=== PATIENT | male | born 1970 | race Caucasian/White ===

== ENCOUNTER 2019-07-20 17:46 | Inpatient (IN) | payer MEDICAID, OTHER ==
[~2019-07-20] VITALS: Ht 195 cm; Wt 87.2 kg
[2019-07-20] MEDS ORDERED: FAMOTIDINE 20MG/2ML IV (PEPCID) IVP ONE (18:15)
[2019-07-20 18:22] LABS: BASOPHILS % (AUTO) 0 % (0-10); EOSINOPHILS # (AUTO) 0.1 10^3/uL (0.0-0.3); EOSINOPHILS % (AUTO) 1 % (0-10); HEMATOCRIT 39 % (40-54); HEMOGLOBIN 13.4 G/DL (13.3-17.7); LYMPHOCYTES # (AUTO) 1.6 X 10^3 (1.0-4.0); LYMPHOCYTES % (AUTO) 20 % (12-44); MEAN CORPUSCULAR HEMOGLOBIN 32 PG (25-34); MEAN CORPUSCULAR HGB CONC 34 G/DL (32-36); MEAN CORPUSCULAR VOLUME 95 FL (80-99); MEAN PLATELET VOLUME 10.6 FL (7.4-10.4); MONOCYTES # (AUTO) 0.7 X 10^3 (0.0-1.0); MONOCYTES % (AUTO) 9 % (0-12); NEUTROPHILS # (AUTO) 5.6 X 10^3 (1.8-7.8); NEUTROPHILS % (AUTO) 70 % (42-75); PLATELET COUNT 163 10^3/uL (130-400); RED CELL DISTRIBUTION WIDTH 12.3 % (10.0-14.5)
[2019-07-20] MEDS: NS IV 1000 ML 1,000 ML IV SCH ×2 (18:26→20:00)
--- NOTE | 2019-07-20 18:31 | Diagnostic Imaging Report ---
INDICATION: Shortness of breath, cardiac enlargement. COMPARISON: None. EXAMINATION: Single view of the chest was obtained. FINDINGS: Moderate cardiac enlargement with mild bilateral interstitial pulmonary edema. No large effusion is seen. There is no pneumothorax. Sternal wires midline. IMPRESSION: Findings compatible with CHF. Underlying pneumonia not excluded. Dictated by: Dictated on workstation # [id number]
[2019-07-20 18:32] LABS: ALKALINE PHOSPHATASE 77 U/L (40-136); BILIRUBIN,TOTAL 0.4 MG/DL (0.1-1.0); BUN/CREATININE RATIO 19; CALCIUM 8.7 MG/DL (8.5-10.1); CARBON DIOXIDE 26 MMOL/L (21-32); CHLORIDE 97 MMOL/L (98-107); CREATININE SERUM 0.57 MG/DL (0.60-1.30); GFR ESTIMATED > 60; GLUCOSE 237 MG/DL (70-105); POTASSIUM 4.1 MMOL/L (3.6-5.0); SODIUM 135 MMOL/L (135-145)
[2019-07-20 18:33] LABS: ALANINE AMINOTRANSFERASE 74 U/L (0-55); ALBUMIN 3.4 GM/DL (3.2-4.5); TOTAL PROTEIN 6.3 GM/DL (6.4-8.2)
--- NOTE | 2019-07-20 19:11 | ED Cardiac General ---
History of Present Illness General Chief Complaint: Chest Pain Stated Complaint: CHEST PAIN Nursing Triage Note: Brought in by ems for chest pain that started two days ago, rated at 10/10. Has taken aspirin for pain. 2 days ago smoked weed laced with meth. Hr is 130, Has had 4 baby aspirins prior to arrival to ED. Has 20 g in R ac. Source: patient Exam Limitations: no limitations History of Present Illness Date Seen by Provider: Jul 20, 2019 Time Seen by Provider: 18:00 Initial Comments Patient is a 49-year-old male with history of polysubstance abuse who presents with productive cough for the past 2 days with chest pain after coughing. Pain is rated 10 out of 10. Patient acknowledges smoking marijuana laced with methamphetamines prior to ED arrival. Patient has fever chills nausea vomiting and sweats. Denies headache, palpitations and shortness of breath. Patient took aspirin prior to ED arrival per EMS. The patient states he was evaluated in [place] 2 days ago for similar symptoms and states he was told he had methamphetamines in his system at that time. Denies history of coronary disease, congestive heart failure, hypertension, dyslipidemia and diabetes. Patient smokes cigarettes and drinks alcohol daily and reports frequent and use routine marijuana/methamphetamine abuse. Denies prior cardiac stress testing.. 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 Associated Systoms: Chest Pain, Cough; No Diaphoresis, No Fever/Chills, No Nausea/Vomiting, No Seizure, No Shortness of Air, No Syncope, No Weakness Allergies and Home Medications Allergies Coded Allergies: Penicillins (Unverified Adverse Reaction, Unknown, 07/20/19) Patient Home Medication List Home Medication List Reviewed: Yes Review of Systems Review of Systems Constitutional: see HPI EENTM: See HPI Respiratory: See HPI Cardiovascular: See HPI Gastrointestinal: See HPI Genitourinary: See HPI Musculoskeletal: see HPI Skin: see HPI Psychiatric/Neurological: See HPI Endocrine: See HPI Hematologic/Lymphatic: See HPI Past Wtqkzei-Mrfnli-Kplnlk Hx Past Med/Social Hx: Reviewed Nursing Past Med/Soc Hx Patient Social History Alcohol Use: Occasionally Uses Recreational Drug Use: Yes Drug of Choice: marijuana, meth Smoking Status: Current Everyday Smoker Type Used: Cigarettes 2nd Hand Smoke Exposure: No Recent Foreign Travel: No Contact w/Someone Who Travel: No Recent Infectious Disease Expo: No Recent Hopitalizations: Yes Seasonal Allergies Seasonal Allergies: No Past Medical History Surgeries: No Respiratory: No Cardiac: Yes (heart surgery at 16mo for hole in heart) Neurological: No Genitourinary: No Gastrointestinal: No Musculoskeletal: No Endocrine: Yes Diabetes, Non-Insulin dep HEENT: No Cancer: No Psychosocial: Yes (substance abuse ) Anxiety Integumentary: No Physical Exam Vital Signs Vital Signs - First Documented 07/20/19 17:46 Temp 36.8 Pulse 129 Resp 19 B/P (MAP) 104/74 (84) Pulse Ox 94 Capillary Refill : Less Than 3 Seconds Height, Weight, BMI Height: '" Weight: lbs. oz. kg; 19.00 BMI Method: General Appearance: No Apparent Distress, WD/WN, Thin, Other (somnolent, difficulty staying awake. Poor hygiene, disheveled, picking sores on skin.) HEENT: PERRL/EOMI, Normal ENT Inspection Neck: Full Range of Motion, Normal Inspection, Supple Respiratory: Chest Non Tender, Normal Breath Sounds, Other (rhonchi) Cardiovascular: No Edema, Tachycardia Gastrointestinal: Normal Bowel Sounds Rectal: Normal Exam Extremity: Normal Capillary Refill Neurologic/Psychiatric: Alert Skin: Normal Color, Warm/Dry Focused Exam Sepsis Stage: Ruled Out Progress/Results/Core Measures Results/Orders Lab Results Laboratory Tests Test 07/20/19 17:45 07/20/19 19:40 Range/Units White Blood Count 8.0 4.3-11.0 10^3/uL Red Blood Count 4.15 L 4.35-5.85 10^6/uL Hemoglobin 13.4 13.3-17.7 G/DL Hematocrit 39 L 40-54 % Mean Corpuscular Volume 95 80-99 FL Mean Corpuscular Hemoglobin 32 25-34 PG Mean Corpuscular Hemoglobin Concent 34 32-36 G/DL Red Cell Distribution Width 12.3 10.0-14.5 % Platelet Count 163 130-400 10^3/uL Mean Platelet Volume 10.6 H 7.4-10.4 FL Neutrophils (%) (Auto) 70 42-75 % Lymphocytes (%) (Auto) 20 12-44 % Monocytes (%) (Auto) 9 0-12 % Eosinophils (%) (Auto) 1 0-10 % Basophils (%) (Auto) 0 0-10 % Neutrophils # (Auto) 5.6 1.8-7.8 X 10^3 Lymphocytes # (Auto) 1.6 1.0-4.0 X 10^3 Monocytes # (Auto) 0.7 0.0-1.0 X 10^3 Eosinophils # (Auto) 0.1 0.0-0.3 10^3/uL Basophils # (Auto) 0.0 0.0-0.1 10^3/uL Sodium Level 135 135-145 MMOL/L Potassium Level 4.1 3.6-5.0 MMOL/L Chloride Level 97 L 98-107 MMOL/L Carbon Dioxide Level 26 21-32 MMOL/L Anion Gap 12 5-14 MMOL/L Blood Urea Nitrogen 11 7-18 MG/DL Creatinine 0.57 L 0.60-1.30 MG/DL Estimat Glomerular Filtration Rate > 60 BUN/Creatinine Ratio 19 Glucose Level 237 H 70-105 MG/DL Calcium Level 8.7 8.5-10.1 MG/DL Corrected Calcium 9.2 8.5-10.1 MG/DL Total Bilirubin 0.4 0.1-1.0 MG/DL Aspartate Amino Transf (AST/SGOT) 65 H 5-34 U/L Alanine Aminotransferase (ALT/SGPT) 74 H 0-55 U/L Alkaline Phosphatase 77 40-136 U/L Troponin I < 0.30 <0.30 NG/ML Pro-B-Type Natriuretic Peptide 4076.0 H <75.0 PG/ML Total Protein 6.3 L 6.4-8.2 GM/DL Albumin 3.4 3.2-4.5 GM/DL Serum Alcohol < 10 <10 MG/DL Urine Opiates Screen NEGATIVE NEGATIVE Urine Oxycodone Screen NEGATIVE NEGATIVE Urine Methadone Screen NEGATIVE NEGATIVE Urine Propoxyphene Screen NEGATIVE NEGATIVE Urine Barbiturates Screen NEGATIVE NEGATIVE Ur Tricyclic Antidepressants Screen NEGATIVE NEGATIVE Urine Phencyclidine Screen NEGATIVE NEGATIVE Urine Amphetamines Screen NEGATIVE NEGATIVE Urine Methamphetamines Screen NEGATIVE NEGATIVE Urine Benzodiazepines Screen NEGATIVE NEGATIVE Urine Cocaine Screen NEGATIVE NEGATIVE Urine Cannabinoids Screen POSITIVE H NEGATIVE My Orders Orders - ABEL PECK DO Cbc With Automated Diff (07/20/19 18:05) Comprehensive Metabolic Panel (07/20/19 18:05) Troponin I (07/20/19 18:05) Chest 1 View Ap/Pa Only (07/20/19 18:05) Drug Screen Stat (Urine) (07/20/19 18:05) Alcohol (07/20/19 18:05) Ns Iv 1000 Ml (Sodium Chloride 0.9%) (07/20/19 18:15) Famotidine Injection (Pepcid Injection) (07/20/19 18:15) Creatine Kinase (07/20/19 17:45) Ekg Tracing (07/20/19 18:52) Probnp Fs (07/20/19 19:03) Doxycycline Hyclate Tablet (Vibramycin T (07/21/19 07:00) Doxycycline Hyclate Tablet (Vibramycin T (07/20/19 19:31) Doxycycline Hyclate Tablet (Vibramycin T (07/20/19 19:40) Furosemide Injection (Lasix Injection) (07/20/19 20:15) Tramadol Tablet (Ultram Tablet) (07/20/19 21:15) Ns (Ivpb) (Sodium C... W/Diltiazem Iv Fo (07/20/19 21:15) Enoxaparin Injection (Lovenox Injection) (07/20/19 21:30) Medications Given in ED Current Medications Medications Dose Ordered Sig/Scarlett Route Start Time Stop Time Status Last Admin Dose Admin Famotidine 20 mg ONCE ONCE IVP 07/20/19 18:15 07/20/19 18:16 DC 07/20/19 18:26 20 MG Furosemide 40 mg ONCE ONCE IVP 07/20/19 20:15 07/20/19 20:16 DC 07/20/19 20:20 40 MG Vital Signs/I&O 07/20/19 07/20/19 17:46 21:17 Temp 36.8 Pulse 129 130 Resp 19 B/P (MAP) 104/74 (84) Pulse Ox 94 Blood Pressure Mean: 84 Departure Communication (Admissions) Patient in atrial arrhythmia suspicious for atrial flutter with with evidence of congestive heart failure. Patient's chest wall pain relates to cough. Troponin negative. Patient started on Cardizem drip, Lovenox and single dose of oral doxycycline. No respiratory distress. Dr. Campa accepts care of the patient. Dr. Randle consulted. Patient observed in the ED and placed on monitor. Patient remains tachycardic likely secondary to infected amines in his system. Blood pressure is 110/80 on recheck. Suspect patient's blood pressure given diminutive building is likely normally in the 100-120 range. Patient resting comfortably. He appears to be "washed out" after binge drug use. Chest x-ray does coincide with reported cough and chest wall pain. First dose of antibiotics given. Recommend watchful waiting, oral antibiotics, supportive care and PCP follow-up with referral for polysubstance abuse. Return precautions reviewed. Patient verbalizes understanding and agreement discharge instructions prior to departure. Impression Primary Impression: Chest pain Additional Impressions: Atrial flutter Congestive cardiac failure Polysubstance abuse Disposition: XF SHT-TRM HOSP Condition: Improved Admissions Decision to Admit Reason: Admit from ER (General) Decision to Admit/Date: Jul 20, 2019 Time/Decision to Admit Time: 21:00 Transfer Time Spoke to Accepting Phy: 21:00 Method of Transfer: EMS ABEL PECK DO Jul 20, 2019 19:11
[2019-07-20] MEDS ORDERED: DOXYCYCLINE 100 MG (VIBRAMYCIN) TABLET ONE (19:31)
[2019-07-20] MEDS ORDERED: DOXYCYCLINE 100 MG (VIBRAMYCIN) TABLET PO SCH (19:40)
[2019-07-20 20:00] LABS: AMPHETAMINE SCREEN, URINE NEGATIVE (NEGATIVE); BARBITURATE SCREEN URINE NEGATIVE (NEGATIVE); BENZODIAZEPINES SCREEN URINE NEGATIVE (NEGATIVE); CANNABINOID SCREEN, URINE POSITIVE (NEGATIVE); COCAINE SCREEN URINE NEGATIVE (NEGATIVE); METHADONE STAT NEGATIVE (NEGATIVE); METHAMPHETAMINE SCREEN URINE S NEGATIVE (NEGATIVE); OPIATE SCREEN URINE NEGATIVE (NEGATIVE); OXYCODONE STAT NEGATIVE (NEGATIVE); PROPOXYPHENE STAT NEGATIVE (NEGATIVE); TRICYCLIC ANTIDEPRESSANTS SCRE NEGATIVE (NEGATIVE)
[2019-07-20] MEDS ORDERED: FUROSEMIDE 40 MG/4 ML INJ (LASIX) IVP ONE (20:15)
[2019-07-20] MEDS: DILTIAZEM IV FOR DRIP 125 MG in NS (IVPB) 100 ML IV SCH ×2 (21:17→22:58)
[2019-07-20] MEDS ORDERED: ENOXAPARIN 60 MG/0.6 ML (LOVENOX) SYR SC ONE (21:30)
[2019-07-20 22:23] VITALS: BP 150/65
[2019-07-21] VITALS (23 sets, daily range): BP systolic 77–156; BP diastolic 56–93
--- NOTE | 2019-07-21 03:41 | NUR ---
LEONOR LAZARO admitted to room CU10-1, with an admitting diagnosis of A-Flutter,CHF, on 07/20/19 from [place] [facility] via EMS/Stretcher, accompanied by EMS.LEONOR LAZARO introduced to surroundings, call light, bed controls, phone, TV, temperature control, lights, meal times, smoking policy, visitor policy, side rail policy, bathrooms and showers. Patient Rights given to patient in the handbook. LEONOR LAZARO verbalizes understanding that [facility] is not responsible for the loss or damage to any personal effects or valuables that are kept in the patients possession during their hospitalization. The following Patient Care Plans were discussed with the patient: Discharge Planning, pain,activity, and room orientation. LEONOR LAZARO verbalizes understanding of Interdisciplinary Patient Education. Patient and/or family were informed about the Rapid Response Team and its purpose.
--- NOTE | 2019-07-21 04:00 | NUR ---
Patient cooperative but disgruntled with staff. Patient is accusing staff of lying about NPO status. Patient cussing at staff and making threats to get up out of bed to get a drink of water. Patient stated that he "does not believe that the Dr wrote that he can't have water," he believes that "This RN" is withholding water from him on purpose. This underwriter mortgage loan encourage patient to remain NPO for possible testing by Dr so that no testing is postponed d/t not being NPO.
[2019-07-21 04:37] LABS: BASOPHILS % (AUTO) 0 % (0-10); EOSINOPHILS # (AUTO) 0.1 10^3/uL (0.0-0.3); EOSINOPHILS % (AUTO) 1 % (0-10); HEMATOCRIT 43 % (40-54); HEMOGLOBIN 14.8 G/DL (13.3-17.7); LYMPHOCYTES # (AUTO) 1.6 X 10^3 (1.0-4.0); LYMPHOCYTES % (AUTO) 19 % (12-44); MEAN CORPUSCULAR HEMOGLOBIN 33 PG (25-34); MEAN CORPUSCULAR HGB CONC 34 G/DL (32-36); MEAN CORPUSCULAR VOLUME 95 FL (80-99); MEAN PLATELET VOLUME 10.4 FL (7.4-10.4); MONOCYTES # (AUTO) 0.9 X 10^3 (0.0-1.0); MONOCYTES % (AUTO) 11 % (0-12); NEUTROPHILS # (AUTO) 5.6 X 10^3 (1.8-7.8); NEUTROPHILS % (AUTO) 69 % (42-75); PLATELET COUNT 178 10^3/uL (130-400); RED CELL DISTRIBUTION WIDTH 12.7 % (10.0-14.5); WHITE BLOOD COUNT 8.2 10^3/uL (4.3-11.0)
[2019-07-21 04:58] LABS: ALANINE AMINOTRANSFERASE 88 U/L (0-55); ALBUMIN 3.4 GM/DL (3.2-4.5); ALKALINE PHOSPHATASE 82 U/L (40-136); BUN/CREATININE RATIO 12; CALCIUM 8.5 MG/DL (8.5-10.1); CARBON DIOXIDE 28 MMOL/L (21-32); CHLORIDE 98 MMOL/L (98-107); CREATININE SERUM 0.82 MG/DL (0.60-1.30); GFR ESTIMATED > 60; GLUCOSE 243 MG/DL (70-105); MAGNESIUM 1.2 MG/DL (1.6-2.4); PHOSPHORUS 3.1 MG/DL (2.3-4.7); POTASSIUM 3.8 MMOL/L (3.6-5.0); SODIUM 135 MMOL/L (135-145); TOTAL PROTEIN 6.7 GM/DL (6.4-8.2)
[2019-07-21] MEDS: POTASSIUM CL 10MEQ/50ML IVPB 50 ML IV SCH (05:16)
[2019-07-21] MEDS: MAGNESIUM 1 GM/100 ML IVPB 100 ML IV SCH ×5 (05:16→08:50)
[2019-07-21] MEDS: KCL 20 MEQ TAB (K-DUR) PO SCH (05:16)
[2019-07-21] MEDS: inSUlin ASPART (NovoLOG) 1 UNIT/0.01 ML (CHARGE PER UNIT) SC SCH ×4 (05:36→20:47)
--- NOTE | 2019-07-21 05:42 | NUR ---
Patient c/o nausea and pain. Blood pressure trending down. Cardizem titrated to 2.5mg/hr. Call to EICU to get something for nausea and pain and to report blood pressure. NO new orders for BP. Order for Zofran.
[2019-07-21] MEDS ORDERED: DILTIAZEM 125 MG/NS 100 ML IV SCH ×2 (05:45)
[2019-07-21] MEDS ORDERED: ONDANSETRON 4 MG/2 ML (SDV) Z0FRAN ONE (05:46)
[2019-07-21] MEDS ORDERED: ONDANSETRON 4 MG/2 ML (SDV) Z0FRAN IVP PRN (06:00)
[2019-07-21] MEDS ORDERED: DOXYCYCLINE 100 MG (VIBRAMYCIN) TABLET PO SCH (07:00)
[2019-07-21] MEDS: FUROSEMIDE 40 MG/4 ML INJ (LASIX) IV SCH ×2 (07:29→18:34)
--- NOTE | 2019-07-21 07:30 | NUR ---
AM LASIX NON ADMINISTERED PER DR SOLORZANO.
--- NOTE | 2019-07-21 07:35 | Pulmonary Consultation ---
History of Present Illness History of Present Illness Date of Consultation 07/21/19 07:30 Time Seen by Provider: 07:30 Date of Admission History of Present Illness 49yo with hx of polysubstance abuse presented to ED secondary to worsening cough, 10/10 CP that started 2 days ago. Patient acknowledges smoking marijuana laced with methamphetamines prior to ED arrival. UDS was positive for only marijuana. Denies headache, palpitations and shortness of breath. I am consulted for ICU management. Allergies and Home Medications Allergies Coded Allergies: Penicillins (Unverified Adverse Reaction, Unknown, 07/20/19) Past Ndcrwth-Btjlxy-Ustsgd Hx Past Med/Social Hx: Reviewed Nursing Past Med/Soc Hx Patient Social History Alcohol Use: Occasionally Uses Recreational Drug Use: Yes Drug of Choice: marijuana, meth Smoking Status: Current Everyday Smoker Type Used: Cigarettes 2nd Hand Smoke Exposure: No Recent Foreign Travel: No Contact w/Someone Who Travel: No Recent Infectious Disease Expo: No Recent Hopitalizations: Yes Seasonal Allergies Seasonal Allergies: No Past Medical History Surgeries: No Respiratory: No Cardiac: Yes (heart surgery at 16mo for hole in heart) Neurological: No Genitourinary: No Gastrointestinal: No Musculoskeletal: No Endocrine: Yes Diabetes, Non-Insulin dep HEENT: No Cancer: No Psychosocial: Yes (substance abuse ) Anxiety Integumentary: No Review of Systems Time Seen by Provider: 07:35 Sepsis Event Evaluation Height, Weight, BMI Height: '" Weight: 185lbs. 13.6oz. 84.164594jm; 22.16 BMI Method: Exam Exam Vital Signs Date Time Temp Pulse Resp B/P (MAP) Pulse Ox O2 Delivery O2 Flow Rate FiO2 07/21/19 06:00 102 20 93/68 92 Nasal Cannula 2.00 07/21/19 05:00 123 13 97/62 94 Nasal Cannula 2.00 07/21/19 04:30 106 21 91/72 97 Nasal Cannula 2.00 07/21/19 04:20 94 Nasal Cannula 2.00 07/21/19 04:15 105 14 81/62 95 Nasal Cannula 2.00 07/21/19 04:00 105 28 94/73 92 Nasal Cannula 2.00 07/21/19 03:50 106 07/21/19 03:47 37.1 107 26 103/72 94 Nasal Cannula 2.00 07/21/19 02:50 101 18 90/64 96 Nasal Cannula 2.00 07/20/19 22:23 107 22 150/65 (93) 95 Nasal Cannula 2.00 07/20/19 21:17 130 07/20/19 17:46 36.8 129 19 104/74 (84) 94 I & O 07/21/19 07:00 Intake Total 1300 ml Output Total 0 ml Balance 1300 ml Height & Weight Height: '" Weight: 185lbs. 13.6oz. 84.093545xw; 22.16 BMI Method: General Appearance: No Apparent Distress, WD/WN, Thin, Other (somnolent, difficulty staying awake. Poor hygiene, disheveled, picking sores on skin.) HEENT: PERRL/EOMI, Normal ENT Inspection Neck: Full Range of Motion, Normal Inspection, Supple Respiratory: Chest Non Tender, Normal Breath Sounds, Other (rhonchi) Cardiovascular: No Edema, Tachycardia Capillary Refill: Less Than 3 Seconds Extremity: Normal Capillary Refill Neurologic/Psychiatric: Alert Skin: Normal Color, Warm/Dry Results Lab Laboratory Tests 07/20/19 17:45 07/21/19 04:31 Assessment/Plan Assessment/Plan CP with NSTEMI -Echo cardiogram pending -Cardiology consulted Hypotension -Monitor -Titrate cardizem down as tolerated Polysubstance abuse FLOYD SOLORZANO DO Jul 21, 2019 07:35
--- NOTE | 2019-07-21 09:44 | History & Physical-Hospitalist ---
History of Present Illness HPI/Chief Complaint Pt is a 49yoCM with a PMH of congenital heart disease s/p repair at 16months, hepatitis C, and IDDMII who presented to the ER with chest pain. He states that he was [place] [address] and developed sudden onset chest pain It did not radiate but was associated with SOB, nausea, and diaphoresis. He has no previous history of this. I attempted to obtain more details regard his HPI and PMH but he stated "are you serious? It's in the [employer] computer?" to most of my questions and thus history is limited. He refused to answer or even acknowledge most questions. He was perseverating on the placement of the urinal and when he'd be able to eat. Source: patient Date Seen 07/21/19 Time Seen by a Provider: 09:39 Attending Physician Garcia Campa MD PCP No,Local Physician Referring Physician Date of Admission Jul 20, 2019 at 9:47 pm Home Medications & Allergies Home Medications Reviewed patient Home Medication Reconciliation performed by pharmacy medication reconciliations preventative maintenance technician and/or nursing. Patients Allergies have been reviewed. Allergies Allergies Coded Allergies Penicillins (Unverified Adverse Reaction, Unknown, 07/20/19) Past Ohqpkxm-Jfiyzk-Geynln Hx Past Med/Social Hx: Reviewed Nursing Past Med/Soc Hx Patient Social History Alcohol Use: Occasionally Uses Recreational Drug Use: Yes Drug of Choice: marijuana, meth Smoking Status: Current Everyday Smoker Type Used: Cigarettes 2nd Hand Smoke Exposure: No Recent Foreign Travel: No Contact w/other who traveled: No Recent Hopitalizations: Yes Recent Infectious Disease Expo: No Seasonal Allergies Seasonal Allergies: No Past Medical History Surgeries: Cardiac Endocrine: Diabetes, Insulin dep Psychosocial: Anxiety Family History Reviewed Nursing Family Hx Review of Systems ROS-Unable to Obtain: LImited due to patient agitation Constitutional: see HPI Physical Exam Physical Exam Vital Signs Vital Signs - First Documented 07/20/19 07/20/19 17:46 22:23 Temp 36.8 Pulse 129 Resp 19 B/P (MAP) 104/74 (84) Pulse Ox 94 O2 Delivery Nasal Cannula O2 Flow Rate 2.00 Capillary Refill : Less Than 3 Seconds Height, Weight, BMI Height: '" Weight: 185lbs. 13.6oz. 84.291068oy; 22.16 BMI Method: General Appearance: No Apparent Distress, Chronically ill, Thin HEENT: Moist Mucous Membranes; No Scleral Icterus (L), No Scleral Icterus (R) Neck: Supple; No JVD, No Thyromegaly Respiratory: Lungs Clear, No Accessory Muscle Use, No Respiratory Distress Cardiovascular: No Murmur, Irregularly Irregular Gastrointestinal: Normal Bowel Sounds, Non Tender, Soft; No Distended, No Guarding Extremity: No Calf Tenderness, No Pedal Edema Neurologic/Psychiatric: Alert, Oriented x3, Other (agitated) Skin: Warm/Dry, Tattoos/Piercings, Other (areas of apparent sunburn with skin peeling, multiple sores scattered over body that appear to be of varying ages) Results Results/Procedures Labs Laboratory Tests 07/20/19 17:45 07/21/19 04:31 Patient resulted labs reviewed. Imaging: Reviewed Imaging Report Assessment/Plan Admission Diagnosis Atrial Flutter Acutely Decompensated heart failure Admission Status: Inpatient Order (span 2 midnights) Reason for Inpatient Admission: IV cardizem, IV diuresis, possible coronary intervention Assessment and Plan Atrial Flutter Congestive Heart Failure Hypotensive NSTEMI Was on cardizem gtt but held for hypotension Continue on Lasix IV NPO until seen by cardiology as troponin trending up echo done this morning Cardiology consulted, appreciate recs IDDMI SSI A1c Polysubstance abuse reports regular THC and occasional alcohol use- states meths use last week but UDS negative Clinical Quality Measures AMI/AHF: ASA po Prior to arrival: Yes DVT/VTE Risk/Contraindication: Risk Factor Score Per Nursin RFS Level Per Nursing on Admit: 2=Moderate GARCIA CAMPA MD Jul 21, 2019 09:44
--- NOTE | 2019-07-21 09:59 | Diagnostic Imaging Report ---
EXAMINATION: Chest 1 view HISTORY: Atrial flutter FINDINGS: Comparison is 07/20/2019. Heart is enlarged but unchanged. No pleural effusion or pneumothorax. There is mild pulmonary edema. IMPRESSION: 1. Cardiomegaly and mild pulmonary edema, unchanged. Dictated by: Dictated on workstation # [id number]
[2019-07-21] MEDS ORDERED: morphine INJ 10 MG/ML 1ML (SYR OR VIAL) IVP SCH (10:00)
[2019-07-21] MEDS: APIXABAN 5 MG (ELIQUIS) TABLET PO SCH ×2 (12:09→20:42)
[2019-07-21] MEDS: meTOprolol TARTRATE 25 MG (LOPRESSOR) TABLET PO SCH ×3 (12:09→20:43)
[2019-07-21] MEDS ORDERED: meTOprolol TARTRATE 25 MG (LOPRESSOR) TABLET PO SCH (13:00)
--- NOTE | 2019-07-21 13:37 | Consultation-Cardiology ---
HPI-Cardiology Cardiology Consultation: Date of Consultation 07/21/19 Date of Admission Attending Physician Berkley Campa MD Admitting Physician No,Local Physician Consulting Physician Mendoza RANDLE MD HPI: Time Seen by a Provider: 12:30 Chief Complaint: Palpitations and shortness of breath This is a 49-year-old gentleman with history of polysubstance abuse. He presents with cough and chest pain. He had drug abuse today. He denied any other complaints. However he was found to be in atrial flutter/atrial tachycardia with 2-1 AV block. He is an active smoker. Review of Systems-Cardiology Review of Systems Constitutional: As described under HPI; No As described under HPI, No no symptoms reported, No chills, No fever, No lightheadedness Eyes: No As described under HPI, No no symptoms reported, No blindness, No blurred vision, No contact lenses, No drainage, No decreased acuity, No foreign body sensation, No pain, No vision change Ears/Nose/Throat: No As described under HPI, No no symptoms reported, No chronic hearing loss, No ear discharge, No ear pain, No nasal drainage, No ulcerations Respiratory: No no symptoms reported; As described under HPI; No As described under HPI, No cough, No orthopnea; shortness of breath; No SOB with excertion Cardiovascular: No no symptoms reported; As described under HPI; No As described under HPI; chest pain; No edema; irregular heart rate; No lightheadedness; palpitations Gastrointestinal: No no symptoms reported, No As described under HPI, No abdomen distended, No abdominal pain, No blood streaked bowels, No constipation, No diarrhea, No nausea, No vomiting, No stool coloration changes Genitourinary: No As described under HPI, No burning, No dysuria, No discharge, No frequency, No flank pain, No hematuria, No urgency Skin: No rash, No skin related problems, No ulcerations Psychiatric/Neurological: No anxiety, No depression, No seizure, No focal weakness, No syncope Hematologic: No bleeding abnormalities [id number] Hx Patient Social History Alcohol Use: Occasionally Uses Recreational Drug Use: Yes Drug of Choice: marijuana, meth Smoking Status: Current Everyday Smoker Type Used: Cigarettes 2nd Hand Smoke Exposure: No Recent Foreign Travel: No Recent Infectious Disease Expo: No Past Medical History PMH As described under Assessment. Allergies and Home Medications Allergies Coded Allergies: Penicillins (Unverified Adverse Reaction, Unknown, 07/22/19) Home Medications No Active Prescriptions or Reported Meds Patient Home Medication List Home Medication List Reviewed: Yes Physical Exam-Cardiology Physical Exam Vital Signs/I&O 07/22/19 07/22/19 07/22/19 07/22/19 05:00 06:03 07:00 07:00 Pulse 122 123 124 123 Resp 27 21 29 B/P (MAP) 90/73 104/77 93/68 O2 Delivery Room Air Room Air Room Air 07/22/19 07/22/19 07/22/19 07/22/19 08:00 08:45 09:00 10:00 Pulse 123 118 123 Resp 35 11 42 B/P (MAP) 139/42 93/68 128/85 Pulse Ox 92 O2 Delivery Room Air Room Air Room Air Room Air 07/22/19 07/22/19 07/22/19 07/22/19 10:10 11:00 12:00 12:05 Pulse 120 107 Resp 22 23 B/P (MAP) 114/59 93/73 Pulse Ox 96 95 O2 Delivery Nasal Cannula Nasal Cannula Nasal Cannula Room Air O2 Flow Rate 3.00 3.00 3.00 07/22/19 07/22/19 07/22/19 07/22/19 13:00 13:00 14:00 15:00 Pulse 104 108 115 115 B/P (MAP) 101/78 92/70 Pulse Ox 96 O2 Delivery Nasal Cannula Nasal Cannula Nasal Cannula O2 Flow Rate 3.00 3.00 3.00 07/22/19 16:00 Pulse 115 B/P (MAP) 107/78 O2 Delivery Nasal Cannula O2 Flow Rate 3.00 07/21/19 23:59 Intake Total 1575 ml Output Total 1325 ml Balance 250 ml Capillary Refill : Less Than 3 Seconds Constitutional: appears stated age, AAO x 3; No apparent distress; well- developed, well-nourished HEENT: PERRL; No discharge; hearing is well preserved, oral hygience is good; No ulceration, No xanthelasmas are seen Neck: No carotid bruit; carotid pulses are 2 + bilaterally Respiratory: chest is bilaterally symmetric, lungs clear to auscultation Cardiovascular: irregularly irregular, tachycardia, S1 and S2 Gastrointestinal: soft, round, audible bowel sounds; No spleenomegaly Rectal: deferred Extremities: normal range of motion, non-tender, normal inspection; No clubbi ng, No cyanosis; no lower extremity edema bilateral; No significant edema Neurologic/Psychiatric: no motor/sensory deficits, alert, normal mood/affect, oriented x 3, power is 5/5 both on sides Skin: No rash, No ulcerations Data Review Labs Laboratory Tests 07/21/19 19:59: Glucometer 259H 07/22/19 02:55: White Blood Count 7.8, Red Blood Count 4.14L, Hemoglobin 13.1L, Hematocrit 39L, Mean Corpuscular Volume 95, Mean Corpuscular Hemoglobin 32, Mean Corpuscular Hemoglobin Concent 33, Red Cell Distribution Width 12.6, Platelet Count 178, Mean Platelet Volume 10.7H, Neutrophils (%) (Auto) 66, Lymphocytes (%) (Auto) 21, Monocytes (%) (Auto) 13H, Eosinophils (%) (Auto) 1, Basophils (%) (Auto) 0, Neutrophils # (Auto) 5.1, Lymphocytes # (Auto) 1.6, Monocytes # (Auto) 1.0, Eosinophils # (Auto) 0.0, Basophils # (Auto) 0.0, Sodium Level 131L, Potassium Level 4.0, Chloride Level 98, Carbon Dioxide Level 23, Anion Gap 10, Blood Urea Nitrogen 18, Creatinine 0.83, Estimat Glomerular Filtration Rate > 60, BUN/Creatinine Ratio 22, Glucose Level 243H, Calcium Level 8.3L, Phosphorus Level 4.1, Magnesium Level 1.7 Microbiology 07/21/19 MRSA Screen - Final, Complete MRSA not isolated ECG Impression ECG Comment Atrial tachycardia with 2-1 AV block A/P-Cardiology Assessment/Admission Diagnosis Atrial tachycardia with 2-1 AV block, Dilated cardiomyopathy, History of congenital heart disease, hypotension, drug abuse Plan Atrial tachycardia with 2-1 AV block, Eliquis. DC cardizem; start metoprolol. Acute mild systolic CHF, low dose lasix. Dilated cardiomyopathy, will need work up. BP is low therefore will not add shai inhibitor yet. History of congenital heart disease, need to get old records. Echocardiogram. hypotension, drug abuse, defer to primary team. Thank you for your consultation. Please call me if you have any questions. Star Randle MD, FACP, FACC, FSCAI, FHRS, CCDS Interventional Cardiology Cardiac Electrophysiology Vascular Medicine and Endovascular Interventions Clinical Quality Measures AMI/AHF: ASA po Prior to arrival: Yes DVT/VTE Risk/Contraindication: Risk Factor Score Per Nursin RFS Level Per Nursing on Admit: 2=Moderate Mendoza RANDLE MD Jul 21, 2019 13:37
[2019-07-21] MEDS: hydrOXYzine (VISTARIL/ATARAX) 25 MG capsule/tablet PO PRN (18:08)
--- NOTE | 2019-07-21 18:39 | NUR ---
ADVISED BY DR SOLORZANO TO HOLD LASIX IF SBP <=110. CURRENT BP 99/74.
[2019-07-21] MEDS: MELATONIN 3 MG TABLET PO SCH (20:43)
[2019-07-22] VITALS (23 sets, daily range): BP systolic 63–158; BP diastolic 42–92
[2019-07-22 03:25] LABS: BASOPHILS % (AUTO) 0 % (0-10); EOSINOPHILS % (AUTO) 1 % (0-10); HEMATOCRIT 39 % (40-54); HEMOGLOBIN 13.1 G/DL (13.3-17.7); LYMPHOCYTES # (AUTO) 1.6 X 10^3 (1.0-4.0); LYMPHOCYTES % (AUTO) 21 % (12-44); MEAN CORPUSCULAR HEMOGLOBIN 32 PG (25-34); MEAN CORPUSCULAR HGB CONC 33 G/DL (32-36); MEAN CORPUSCULAR VOLUME 95 FL (80-99); MEAN PLATELET VOLUME 10.7 FL (7.4-10.4); MONOCYTES % (AUTO) 13 % (0-12); NEUTROPHILS # (AUTO) 5.1 X 10^3 (1.8-7.8); NEUTROPHILS % (AUTO) 66 % (42-75); PLATELET COUNT 178 10^3/uL (130-400); RED CELL DISTRIBUTION WIDTH 12.6 % (10.0-14.5); WHITE BLOOD COUNT 7.8 10^3/uL (4.3-11.0)
[2019-07-22 03:44] LABS: BUN/CREATININE RATIO 22; CALCIUM 8.3 MG/DL (8.5-10.1); CARBON DIOXIDE 23 MMOL/L (21-32); CHLORIDE 98 MMOL/L (98-107); CREATININE SERUM 0.83 MG/DL (0.60-1.30); GFR ESTIMATED > 60; GLUCOSE 243 MG/DL (70-105); MAGNESIUM 1.7 MG/DL (1.6-2.4); PHOSPHORUS 4.1 MG/DL (2.3-4.7); SODIUM 131 MMOL/L (135-145)
--- NOTE | 2019-07-22 04:08 | NUR ---
PT YELLING AND CUSSING AT STAFF. PT STATES THAT HE "IS FUCKING TIRED OF NOT GETTING ANY SLEEP" AND THAT "HE NEVER SHOULD HAVE CAME TO THE HOSPITAL" REFUSING TO KEEP ECG LEADS OR BP CUFF ON. PT REFUSING TO LET THIS RN COMPLETE 0400 PHYSICAL ASSESSMENT. THIS RN EDUCATED PT ON HIS RIGHTS. WILL CONTINUE TO MONITOR.
--- NOTE | 2019-07-22 04:18 | NUR ---
PT THREATENING STAFF. YELLING THAT "THE NEXT PERSON THAT COMES IN THAT DOOR, I AM GOING TO BEAT THE SHIT OUT OF!!" ORANGE MAGNET PLACED OUT SIDE OF DOOR TO ALERT STAFF TO PATIENTS AGGRESSION, SENIOR PROJECT ACCOUNTANT ALSO NOTIFIED AT THIS TIME.
[2019-07-22] MEDS: POTASSIUM CL 10MEQ/50ML IVPB 50 ML IV SCH (04:21)
[2019-07-22] MEDS: KCL 20 MEQ TAB (K-DUR) PO SCH (04:21)
[2019-07-22] MEDS: MAGNESIUM 1 GM/100 ML IVPB 100 ML IV SCH (04:21)
--- NOTE | 2019-07-22 04:57 | Pulmonary Progress Note ---
Subjective Time Seen by a Provider: 04:56 Subjective/Events-last exam Pt has been refusing multiple things and threatening nursing staff. Sepsis Event Evaluation Height, Weight, BMI Height: '" Weight: 185lbs. 13.6oz. [id number]; 22.16 BMI Method: Exam Exam Vital Signs Date Time Temp Pulse Resp B/P (MAP) Pulse Ox O2 Delivery O2 Flow Rate FiO2 07/22/19 02:00 123 35 94/71 Room Air 07/22/19 01:00 123 25 90/69 Room Air 07/22/19 01:00 123 07/22/19 00:00 124 98/68 Room Air 07/21/19 23:36 37.2 98 Room Air 07/21/19 23:35 Room Air 07/21/19 23:00 125 14 93/69 Room Air 07/21/19 22:00 124 33 88/63 Room Air 07/21/19 21:00 124 38 92/66 Room Air 07/21/19 20:00 37.2 07/21/19 20:00 Room Air 07/21/19 20:00 125 35 103/68 96 Room Air 07/21/19 19:15 Nasal Cannula 2.00 07/21/19 19:00 123 07/21/19 19:00 123 29 100/71 Room Air 07/21/19 18:00 117 18 99/74 Room Air 07/21/19 17:00 110 40 92/65 Room Air 07/21/19 16:00 109 36 87/61 85 Room Air 07/21/19 15:45 37.8 07/21/19 15:11 Room Air 07/21/19 15:00 101 46 86/59 Room Air 07/21/19 14:15 Room Air 07/21/19 14:00 100 17 94/71 Nasal Cannula 2.00 07/21/19 13:00 111 31 88/64 Nasal Cannula 2.00 07/21/19 13:00 107 07/21/19 12:00 110 31 100/72 Nasal Cannula 2.00 07/21/19 12:00 Nasal Cannula 2.00 07/21/19 11:30 37.0 07/21/19 11:00 106 33 97/69 Nasal Cannula 2.00 07/21/19 10:00 113 19 95/72 Nasal Cannula 2.00 07/21/19 09:00 105 23 77/56 92 Nasal Cannula 2.00 07/21/19 08:00 37.0 07/21/19 08:00 107 35 83/70 95 Nasal Cannula 2.00 07/21/19 08:00 Nasal Cannula 2.00 07/21/19 07:00 101 07/21/19 07:00 101 24 87/68 92 Nasal Cannula 2.00 07/21/19 06:00 102 20 93/68 92 Nasal Cannula 2.00 07/21/19 05:00 123 13 97/62 94 Nasal Cannula 2.00 I & O 07/22/19 07:00 Intake Total 1875 ml Output Total 1325 ml Balance 550 ml Height & Weight Height: '" Weight: 185lbs. 13.6oz. 84.398385lx; 22.16 BMI Method: General Appearance: No Apparent Distress, Anxious, Chronically ill, Thin HEENT: Moist Mucous Membranes; No Scleral Icterus (L), No Scleral Icterus (R) Neck: Supple; No JVD, No Thyromegaly Respiratory: Lungs Clear, No Accessory Muscle Use, No Respiratory Distress Cardiovascular: No Murmur, Irregularly Irregular Capillary Refill: Less Than 3 Seconds Gastrointestinal: normal bowel sounds, non tender, soft Extremity: No Calf Tenderness, No Pedal Edema Neurologic/Psychiatric: Alert, Oriented x3, Other (agitated) Skin: Warm/Dry, Tattoos/Piercings, Other (areas of apparent sunburn with skin peeling, multiple sores scattered over body that appear to be of varying ages) Results Lab Laboratory Tests 07/20/19 17:45 07/21/19 04:31 07/22/19 02:55 Assessment/Plan Assessment/Plan CP with NSTEMI -Cardiology consulted Afib RVR -cardiology following CHF - EF 20-25% -Lasix - Has been held secondary to hypotension Hypotension - improved -Monitor Polysubstance abuse Pt has been refusing multiple things and threatening nursing staff. FLOYD SOLORZANO DO Jul 22, 2019 04:57
[2019-07-22] MEDS: FUROSEMIDE 40 MG/4 ML INJ (LASIX) IV SCH ×2 (05:19→22:56)
[2019-07-22] MEDS: inSUlin ASPART (NovoLOG) 1 UNIT/0.01 ML (CHARGE PER UNIT) SC SCH ×4 (05:30→20:47)
--- NOTE | 2019-07-22 07:24 | Diagnostic Imaging Report ---
Patient History: Atrial flutter. Congestive heart failure. Technique: Single frontal view of the chest Comparison: 07/21/2019 FINDINGS: Interval increase in interstitial and alveolar opacities throughout the right lung, greatest in the perihilar and basilar region. Stable mild opacities perihilar opacities on the left. Small right pleural effusion is present. No large pneumothorax. Stable cardiomegaly. Sternotomy wires are present. IMPRESSION: 1. Interval increase in interstitial and alveolar opacities throughout the right lung, which may represent asymmetric edema versus infection or atelectasis. Stable mild perihilar opacities on the left. 2. Small right pleural effusion. 3. Stable cardiomegaly. Dictated by: Dictated on workstation # [id number]
[2019-07-22] MEDS ORDERED: AMIODARONE FOR BOLUS 150 MG in D5W 100 ML IVPB 100 ML IV ONE (09:00)
[2019-07-22] MEDS: AMIODARONE INJECTION 450 MG in D5W IV SOLUTION (EXCEL) 250 ML IV SCH (10:06)
--- NOTE | 2019-07-22 11:20 | NUR ---
Pastoral care visit, pt asleep and deferred visit due to agitation.
[2019-07-22] MEDS: APIXABAN 5 MG (ELIQUIS) TABLET PO SCH ×2 (11:26→20:47)
[2019-07-22] MEDS: meTOprolol TARTRATE 25 MG (LOPRESSOR) TABLET PO SCH ×4 (11:27→23:25)
[2019-07-22] MEDS: hydrOXYzine (VISTARIL/ATARAX) 25 MG capsule/tablet PO PRN (13:08)
--- NOTE | 2019-07-22 13:30 | NUR ---
Pt tells this nurse that he is ordering pizza from outside the hospital and he will not go any longer without eating. I attempted to educate patient reasoning behind being NPO. Dr. Randle and Dr. Hallman notified. Advised patient that eating is going against medical advice. Pt states he wants to go to [facility] and doesn't want Dr. Randle to do anything to him. No consent for SRINI signed at this time. Pt very uncooperative and cursing at this nurse.
[2019-07-22] MEDS ORDERED: LIDOCAINE 2% VISCOUS 15 ML UDC PO NR (15:00)
--- NOTE | 2019-07-22 15:30 | NUR ---
PIV to right AC is leaking. Flushes well without sign of leak. Pt refuses to allow this nurse to restart another IV. Dressing changed and will monitor.
--- NOTE | 2019-07-22 15:38 | NUR ---
Pt continually takes off oxygen and pulse ox probe. Takes off BP cuff as well. Pt will allow me to put them back on but curses about it.
[2019-07-22] MEDS ORDERED: proPOfol 200 MG/20 ML (DIPRIVAN) VIAL IV ONE ×2 (16:05→16:14)
[2019-07-22] MEDS ORDERED: NS IV 500 ML 500 ML ONE (16:09)
--- NOTE | 2019-07-22 16:17 | Cardiology Progress Note ---
Cardiology SOAP Progress Note Subjective: Continues to be in atrial flutter/atrial tachycardia with 2-1 AV block Objective: I&O/Vital Signs 07/22/19 07/22/19 07/22/19 07/22/19 05:00 06:03 07:00 07:00 Pulse 122 123 124 123 Resp 27 21 29 B/P (MAP) 90/73 104/77 93/68 O2 Delivery Room Air Room Air Room Air 07/22/19 07/22/19 07/22/19 07/22/19 08:00 08:45 09:00 10:00 Pulse 123 118 123 Resp 35 11 42 B/P (MAP) 139/42 93/68 128/85 Pulse Ox 92 O2 Delivery Room Air Room Air Room Air Room Air 07/22/19 07/22/19 07/22/19 07/22/19 10:10 11:00 12:00 12:05 Pulse 120 107 Resp 22 23 B/P (MAP) 114/59 93/73 Pulse Ox 96 95 O2 Delivery Nasal Cannula Nasal Cannula Nasal Cannula Room Air O2 Flow Rate 3.00 3.00 3.00 07/22/19 07/22/19 07/22/19 07/22/19 13:00 13:00 14:00 15:00 Pulse 104 108 115 115 B/P (MAP) 101/78 92/70 Pulse Ox 96 O2 Delivery Nasal Cannula Nasal Cannula Nasal Cannula O2 Flow Rate 3.00 3.00 3.00 07/22/19 16:00 Pulse 115 B/P (MAP) 107/78 O2 Delivery Nasal Cannula O2 Flow Rate 3.00 07/21/19 23:59 Intake Total 1575 ml Output Total 1325 ml Balance 250 ml Weight (Pounds): 184 Weight (Ounces): 0.0 Weight (Calculated Kilograms): 83.212322 Constitutional: appears stated age, AAO x 3; No apparent distress; well- developed, well-nourished Respiratory: chest is bilaterally symmetric, lungs clear to auscultation Cardiovascular: irregularly irregular, tachycardia, S1 and S2 Gastrointestional: soft, round, audible bowel sounds; No spleenomegaly Extremities: normal range of motion, non-tender, normal inspection; No clubbing, No cyanosis; no lower extremity edema bilateral; No significant edema Neurologic/Psychiatric: no motor/sensory deficits, alert, normal mood/affect, o riented x 3, power is 5/5 both on sides Skin: No rash, No ulcerations Results/Procedures: Labs Laboratory Tests 07/21/19 19:59: Glucometer 259H 07/22/19 02:55: White Blood Count 7.8, Red Blood Count 4.14L, Hemoglobin 13.1L, Hematocrit 39L, Mean Corpuscular Volume 95, Mean Corpuscular Hemoglobin 32, Mean Corpuscular Hemoglobin Concent 33, Red Cell Distribution Width 12.6, Platelet Count 178, Mean Platelet Volume 10.7H, Neutrophils (%) (Auto) 66, Lymphocytes (%) (Auto) 21, Monocytes (%) (Auto) 13H, Eosinophils (%) (Auto) 1, Basophils (%) (Auto) 0, Neutrophils # (Auto) 5.1, Lymphocytes # (Auto) 1.6, Monocytes # (Auto) 1.0, Eosinophils # (Auto) 0.0, Basophils # (Auto) 0.0, Sodium Level 131L, Potassium Level 4.0, Chloride Level 98, Carbon Dioxide Level 23, Anion Gap 10, Blood Urea Nitrogen 18, Creatinine 0.83, Estimat Glomerular Filtration Rate > 60, BUN/Creatinine Ratio 22, Glucose Level 243H, Calcium Level 8.3L, Phosphorus Level 4.1, Magnesium Level 1.7 Microbiology 07/21/19 MRSA Screen - Final, Complete MRSA not isolated A/P: Assessment/Dx: Atrial tachycardia with 2-1 AV block, Dilated cardiomyopathy, History of congenital heart disease, hypotension, drug abuse Plan: Atrial tachycardia with 2-1 AV block, Eliquis. Metoprolol. I discussed at length with the patient and recommended transesophageal echocardiogram assisted cardioversion. Informed consent was taken. Risk of esophageal damage as well as stroke was also discussed. Acute mild systolic CHF, low dose lasix. Dilated cardiomyopathy, will need work up. BP is low therefore will not add shai inhibitor yet. History of congenital heart disease, need to get old records. Echocardiogram showed poor LV systolic function. Will require coronary workup. LifeVest for primary prevention. hypotension, drug abuse, defer to primary team. Thank you for your consultation. Please call me if you have any questions. Star Randle MD, FACP, FACC, FSCAI, FHRS, CCDS Interventional Cardiology Cardiac Electrophysiology Vascular Medicine and Endovascular Interventions Clinical Quality Measures AMI/AHF: ASA po Prior to arrival: Yes Mendoza RANDLE MD Jul 22, 2019 16:16
--- NOTE | 2019-07-22 17:04 | Cardioversion ---
Cardioversion PROCEDURE PHYSICIAN: Star Randle MD DATE OF PROCEDURE: 07/22/19 DIRECT EXTERNAL ELECTRICAL CARDIOVERSION: Indications: Atrial flutter with rapid ventricular rate Preoperative diagnoses: Atrial flutter with rapid ventricular rate Postoperative diagnosis: Sinus rhythm, Successful Electrical Cardioversion History: 49-year-old with symptomatic atrial flutter. Anesthesia: By Anesthesia services Complications: None Specimen: None Contrast: 0 Flouroscopy: none Procedure Details: The patient was brought the petroleum laboratory technician after informed consent was taken, all the risks and complications were explained including the risk of stroke. Transesophageal echocardiogram did not reveal any left atrium or left atrial appendage thrombus. Electrical cardioversion was carried out with anesthesia support with propofol. 200 joules of synchronized shock was delivered through external patches which promptly restored sinus rhythm. The patient tolerated the procedure well. Conclusions: 1.Successful Cardioversion. 2.Continue oral anticoagulation and rate controlling agent. Star Randle MD, RS, CCDS Cardiac Electrophysiology Mendoza RANDLE MD Jul 22, 2019 17:04
--- NOTE | 2019-07-22 17:36 | Anesthesia-General Post-Op ---
MAC Patient Condition Mental Status/LOC: Same as Preop Cardiovascular: Satisfactory Nausea/Vomiting: Absent Respiratory: Satisfactory Pain: Controlled Complications: Absent Post Op Complications Complications None Follow Up Care/Instructions Patient Instructions None needed. Anesthesiology Discharge Order Discharge Order Patient is doing well, no complaints, stable vital signs, no apparent adverse anesthesia problems. No complications reported per nursing. FREDY KEITH CRNA Jul 22, 2019 17:36
--- NOTE | 2019-07-22 17:36 | Anesthesia-Procedure Note ---
Procedures/Interventions Procedure Start/Stop/Diagnosis Date of Procedure: Jul 22, 2019 Start Time: 16:10 Referring Physician: Razia Brief History Called to ICU to sedate for SRINI/Cardioversion. Monitors on and functional. NC @ 5L 02. Pt interviewed, report received from RN. Propofol given incrementally to effect. Shortly after procedure start, pt desaturating into the 70's. SRINI probe removed and patient given positive pressure ventilation breaths via ambu bag until saturation WNL. Proceeded with procedure successfully, see cardiology note. Propofol 200mg IV given total throughout. Stop Time: 16:40 FREDY KEITH CRNA Jul 22, 2019 17:36
[2019-07-22] MEDS ORDERED: NS (IVPB) 50 ML ONE (20:03)
[2019-07-22] MEDS ORDERED: risperiDONE 2 MG (RisperDAL) TAB PO NR (20:30)
--- NOTE | 2019-07-22 20:45 | NUR ---
This RN called EICU due to soft SBP in 90's. Order received at this time.
[2019-07-22] MEDS: MELATONIN 3 MG TABLET PO SCH (20:49)
[2019-07-22] MEDS ORDERED: D5 NS 1000 ML IV SOLUTION 1,000 ML IV ONE (20:56)
[2019-07-22] MEDS: D5 NS 1000 ML IV SOLUTION 1,000 ML IV SCH (21:26)
--- NOTE | 2019-07-22 22:00 | NUR ---
This RN called EICU to notify of SBP in 70's new order received at this time.
[2019-07-22] MEDS ORDERED: NS IV 1000 ML 1,000 ML ONE (22:02)
[2019-07-22] MEDS ORDERED: NS IV 1000 ML 1,000 ML IV ONE (22:30)
--- NOTE | 2019-07-22 23:00 | NUR ---
This RN notified EICU of continued hypotension despite 1L NS bolus. Central line placement ordered at this time.
--- NOTE | 2019-07-22 23:04 | Progress Note - Hospitalist ---
Subjective HPI/CC On Admission Date Seen by Provider: Jul 22, 2019 Time Seen by Provider: 08:30 chest pain Subjective/Events-last exam He denies any current complaints or concerns. He denies any chest pain or sh ortness of breath. He denies any palpitations. He denies any abdominal pain, nausea, vomiting, or diarrhea. He agrees to treat the staff more respectfully and would like to continue with ongoing cares. Objective Exam Vital Signs Vital Signs Date Time Temp Pulse Resp B/P (MAP) Pulse Ox O2 Delivery O2 Flow Rate FiO2 07/22/19 22:00 77 63/44 96 Nasal Cannula 3.00 07/22/19 21:30 30 07/22/19 20:00 36.5 Capillary Refill : Less Than 3 Seconds General Appearance: No Apparent Distress, WD/WN Respiratory: Lungs Clear, Normal Breath Sounds, No Respiratory Distress Cardiovascular: Regular Rate, Rhythm, No Edema, No Murmur Gastrointestinal: Normal Bowel Sounds, Non Tender, Soft Extremity: Normal Inspection, Non Tender, No Pedal Edema Neurologic/Psychiatric: Alert, Oriented x3 Skin: Normal Color, Warm/Dry Lymphatic: No Adenopathy Results/Procedures Lab Laboratory Tests 07/22/19 02:55 Patient resulted labs reviewed. Assessment/Plan Assessment and Plan Assess & Plan/Chief Complaint Atrial fibrillation Heart failure with reduced ejection fraction NSTEMI Congenital heart disease Remains in atrial fibrillation Currently on metoprolol and colic was Nothing by mouth for possible SRINI cardioversion today Cardiology following, appreciate assistance Cannabis abuse Recommend cessation Diagnosis/Problems Diagnosis/Problems (1) NSTEMI (non-ST elevated myocardial infarction) Status: Acute (2) Atrial fibrillation Status: Acute (3) Heart failure with reduced ejection fraction Status: Acute (4) Polysubstance abuse Status: Chronic Clinical Quality Measures AMI/AHF: ASA po Prior to arrival: Yes DVT/VTE Risk/Contraindication: Risk Factor Score Per Nursin RFS Level Per Nursing on Admit: 3=VIELKA Katz MD Jul 22, 2019 23:04
--- NOTE | 2019-07-22 23:04 | NUR ---
This RN notified Dr. Randle of hypotension. Order to hold Lopressor until blood pressure resolved.
--- NOTE | 2019-07-22 23:15 | NUR ---
This RN called Dr. Marquez for Central Line placement.
[2019-07-23] VITALS (37 sets, daily range): BP systolic 54–149; BP diastolic 30–98
[2019-07-23] MEDS ORDERED: NS (IVPB) 250 ML ONE ×2 (00:25→04:17)
[2019-07-23] MEDS ORDERED: NOREPINEPHRINE 4 MG/4 ML (LEVOPHED) AMP IV ONE ×2 (00:26→04:17)
[2019-07-23] MEDS: NOREPINEPHRINE 4 MG/NS 250 ML DRIP IV SCH ×8 (00:40→11:28)
[2019-07-23] MEDS: DEXMEDETOMIDINE INJECTION 1,000 MCG in NS (IVPB) 240 ML IV SCH ×3 (00:41→18:20)
--- NOTE | 2019-07-23 00:51 | Consultation - Surgery ---
History of Present Illness History of Present Illness Patient Consulted On(rae/time) 07/23/19 00:43 Time Seen by Provider: 23:56 History of Present Illness Surgery asked to consult regarding Hypotension, Venous Insufficiency. HPI per IM: Pt is a 49yoCM with a PMH of congenital heart disease s/p repair at 16months, hepatitis C, and IDDMII who presented to the ER with chest pain. He states that he [place] [address] and developed sudden onset chest pain It did not radiate but was associated with SOB, nausea, and diaphoresis. He has no previous history of this. I attempted to obtain more details regard his HPI and PMH but he stated "are you serious? It's in the [employer] computer?" to most of my questions and thus history is limited. He refused to answer or even acknowledge most questions. He was perseverating on the placement of the urinal and when he'd be able to eat. When seen tonight pt complains of weakness, SOB and some chest pain. Allergies and Home Medications Allergies Coded Allergies: Penicillins (Unverified Adverse Reaction, Unknown, 07/22/19) Home Medications No Active Prescriptions or Reported Meds Patient Home Medication List Home Medication List Reviewed: Yes Past Hashgxp-Avpbcj-Hdwshx Hx Patient Social History Alcohol Use: Occasionally Uses Recreational Drug Use: Yes Drug of Choice: marijuana, meth Smoking Status: Current Everyday Smoker Type Used: Cigarettes 2nd Hand Smoke Exposure: No Recent Foreign Travel: No Contact w/Someone Who Travel: No Recent Infectious Disease Expo: No Recent Hopitalizations: Yes Seasonal Allergies Seasonal Allergies: No Surgeries History of Surgeries: No Surgeries: Cardiac Respiratory History of Respiratory Disorde: No Cardiovascular History of Cardiac Disorders: Yes (heart surgery at 16mo for hole in heart) Neurological History of Neurological Disord: No Genitourinary History of Genitourinary Disor: No Gastrointestinal History of Gastrointestinal Di: No Musculoskeletal History of Musculoskeletal Dis: No Endocrine History of Endocrine Disorders: Yes Endocrine Disorders: Diabetes, Insulin dep HEENT History of HEENT Disorders: No Cancer History of Cancer: No Psychosocial History of Psychiatric Problem: Yes (substance abuse ) Behavioral Health Disorders: Anxiety Integumentary History of Skin or Integumenta: No Family Medical History Significant Family History: Other Conditions/Hx (adopted) Other Pt states he was adopted and doesn't know any family history. Review of Systems-General Constitutional: diaphoresis, malaise, weakness EENTM: dental problems; No blurred vision, No double vision, No mouth swelling, No epistaxis Respiratory: dyspnea on exertion, short of breath, wheezing Cardiovascular: chest pain, Hx of Intervention, palpitations Gastrointestinal: No abdominal pain, No dysphagia, No hematemesis Genitourinary: No dysuria, No frequency, No hematuria Musculoskeletal: joint pain, muscle stiffness, neck pain Skin: lesions, other (tattoos) Psychiatric/Neurological: Anxiety; Denies Seizure, Denies Tremors Physical Exam-General Problems Physical Exam Vital Signs Vital Signs - First Documented 07/20/19 07/20/19 17:46 22:23 Temp 36.8 Pulse 129 Resp 19 B/P (MAP) 104/74 (84) Pulse Ox 94 O2 Delivery Nasal Cannula O2 Flow Rate 2.00 Capillary Refill : Less Than 3 Seconds General Appearance: mild distress, thin Eyes: Bilateral Eye EOMI, Bilateral Eye Abnormal EOM HEENT: pharynx normal; No scleral icterus (R), No scleral icterus (L); other (edentulous) Neck: supple; No thyromegaly Respiratory: lungs clear, no respiratory distress, no accessory muscle use Cardiovascular: regular rate, rhythm, no murmur Gastrointestinal: normal bowel sounds, non tender, soft, no organomegaly, no pulsatile mass Back: no CVA tenderness, no vertebral tenderness Extremities: no pedal edema, no calf tenderness, normal capillary refill Neurologic/Psychiatric: glue spreader II-XII nml as tested, alert Skin: normal color, warm/dry Lymphatic: no adenopathy (neck, axilla or groin) Data Review Labs Laboratory Tests 07/22/19 02:55: White Blood Count 7.8, Red Blood Count 4.14L, Hemoglobin 13.1L, Hematocrit 39L, Mean Corpuscular Volume 95, Mean Corpuscular Hemoglobin 32, Mean Corpuscular Hemoglobin Concent 33, Red Cell Distribution Width 12.6, Platelet Count 178, Mean Platelet Volume 10.7H, Neutrophils (%) (Auto) 66, Lymphocytes (%) (Auto) 21, Monocytes (%) (Auto) 13H, Eosinophils (%) (Auto) 1, Basophils (%) (Auto) 0, Neutrophils # (Auto) 5.1, Lymphocytes # (Auto) 1.6, Monocytes # (Auto) 1.0, Eosinophils # (Auto) 0.0, Basophils # (Auto) 0.0, Sodium Level 131L, Potassium Level 4.0, Chloride Level 98, Carbon Dioxide Level 23, Anion Gap 10, Blood Urea Nitrogen 18, Creatinine 0.83, Estimat Glomerular Filtration Rate > 60, BUN/Creatinine Ratio 22, Glucose Level 243H, Calcium Level 8.3L, Phosphorus Level 4.1, Magnesium Level 1.7 07/22/19 20:44: Glucometer 343H Microbiology 07/21/19 MRSA Screen - Final, Complete MRSA not isolated Assessment/Plan Assessment/Plan Assessment/Plan Hypotension ?? Cardiogenic Shock vs Poor EF Venous Insufficiency A. Flutter Pt is hypotensive and needs IV access for Pressor support; this must be done through a central line. Assessed pt for viability of placing central line; used US to find IJ. Discussed procedure with pt and went over risks and complications not limited to pain, bleeding, infection, scar, damage to vessels and even Pneumothorax. Pt was most hung up on the fact that he would not be put to sleep. I offered him choice of not doing procedure; but told him if his blood pressure dropped to low he could . Pt elected to go through with procedure. Clinical Quality Measures AMI/AHF: ASA po Prior to arrival: Yes DVT/VTE Risk/Contraindication: Risk Factor Score Per Nursin RFS Level Per Nursing on Admit: 3=High SHENG CAROLINA DO Jul 23, 2019 00:51
--- NOTE | 2019-07-23 00:53 | Progress Note-Post Operative ---
Post-Operative Progess Note Surgeon (s)/Manager Business Management (s) Surgeon SHENG CAROLINA DO Manager Business Management: none Pre-Operative Diagnosis Hypotension, Venous Insufficiency Post-Operative Diagnosis same Procedure & Operative Findings Date of Procedure 07/23/19 Procedure Performed/Findings RIJ insertion with US guidance Anesthesia Type local lidocaine Estimated Blood Loss Estimated blood loss (mL): less than 5ml Specimens/Packing Specimens Removed none SHENG CAROLINA DO Jul 23, 2019 00:53
[2019-07-23 03:50] LABS: BASOPHILS % (AUTO) 0 % (0-10); EOSINOPHILS % (AUTO) 0 % (0-10); HEMATOCRIT 41 % (40-54); LYMPHOCYTES # (AUTO) 2.1 X 10^3 (1.0-4.0); LYMPHOCYTES % (AUTO) 23 % (12-44); MEAN CORPUSCULAR HEMOGLOBIN 32 PG (25-34); MEAN CORPUSCULAR HGB CONC 34 G/DL (32-36); MEAN CORPUSCULAR VOLUME 94 FL (80-99); MEAN PLATELET VOLUME 10.7 FL (7.4-10.4); MONOCYTES # (AUTO) 1.6 X 10^3 (0.0-1.0); MONOCYTES % (AUTO) 17 % (0-12); NEUTROPHILS # (AUTO) 5.5 X 10^3 (1.8-7.8); NEUTROPHILS % (AUTO) 59 % (42-75); PLATELET COUNT 242 10^3/uL (130-400); RED CELL DISTRIBUTION WIDTH 12.6 % (10.0-14.5); WHITE BLOOD COUNT 9.2 10^3/uL (4.3-11.0)
[2019-07-23 04:14] LABS: BUN/CREATININE RATIO 21; CALCIUM 8.4 MG/DL (8.5-10.1); CARBON DIOXIDE 22 MMOL/L (21-32); CHLORIDE 98 MMOL/L (98-107); CREATININE SERUM 1.25 MG/DL (0.60-1.30); GFR ESTIMATED > 60; GLUCOSE 301 MG/DL (70-105); MAGNESIUM 1.7 MG/DL (1.6-2.4); PHOSPHORUS 4.5 MG/DL (2.3-4.7); POTASSIUM 4.8 MMOL/L (3.6-5.0); SODIUM 130 MMOL/L (135-145)
[2019-07-23] MEDS ORDERED: NS IV 500 ML 500 ML IV SCH (04:30)
[2019-07-23] MEDS ORDERED: NS IV 1000 ML 1,000 ML ONE ×2 (04:39→11:42)
[2019-07-23] MEDS ORDERED: NS IV 500 ML 500 ML ONE (04:39)
--- NOTE | 2019-07-23 04:39 | Pulmonary Progress Note ---
Subjective Time Seen by a Provider: 06:30 Subjective/Events-last exam Pt became hypotensive during the night. EICU ordered central line and Dr. Marquez placed central line. Sepsis Event Evaluation Height, Weight, BMI Height: '" Weight: 184lbs. 0.0oz. 83.415509ad; 22.16 BMI Method: Exam Exam Vital Signs Date Time Temp Pulse Resp B/P (MAP) Pulse Ox O2 Delivery O2 Flow Rate FiO2 07/23/19 03:15 84 95/74 99 High Flow N/C 3.00 07/23/19 03:00 84 84/61 98 High Flow N/C 3.00 07/23/19 02:49 97 High Flow N/C 3.00 07/23/19 02:00 96 110/67 91 High Flow N/C 5.00 07/23/19 01:20 90 24 96/75 90 High Flow N/C 5.00 07/23/19 01:14 High Flow N/C 2.00 07/23/19 01:00 92 31 93/70 90 Nasal Cannula 3.00 07/23/19 01:00 92 07/23/19 00:00 36.3 07/23/19 00:00 86 29 81/59 94 Nasal Cannula 3.00 07/22/19 23:21 Nasal Cannula 2.00 07/22/19 23:15 82 99/67 95 Nasal Cannula 3.00 07/22/19 23:00 77 71/47 94 Nasal Cannula 3.00 07/22/19 22:00 77 63/44 96 Nasal Cannula 3.00 07/22/19 21:30 91 30 77/54 95 Nasal Cannula 3.00 07/22/19 21:00 97 90/74 Nasal Cannula 3.00 07/22/19 20:00 102 36 114/84 98 Nasal Cannula 3.00 07/22/19 20:00 36.5 07/22/19 19:00 102 19 103/76 95 Nasal Cannula 3.00 07/22/19 19:00 102 07/22/19 18:00 95 126/76 97 Nasal Cannula 3.00 07/22/19 17:00 93 47 98/60 Nasal Cannula 3.00 07/22/19 16:00 115 107/78 Nasal Cannula 3.00 07/22/19 16:00 Room Air 07/22/19 15:00 115 Nasal Cannula 3.00 07/22/19 14:00 115 92/70 Nasal Cannula 3.00 07/22/19 13:00 108 07/22/19 13:00 104 101/78 96 Nasal Cannula 3.00 07/22/19 12:05 Room Air 07/22/19 12:00 107 23 93/73 95 Nasal Cannula 3.00 07/22/19 11:00 120 22 114/59 96 Nasal Cannula 3.00 07/22/19 10:10 Nasal Cannula 3.00 07/22/19 10:00 123 42 128/85 92 Room Air 07/22/19 09:00 118 11 93/68 Room Air 07/22/19 08:45 Room Air 07/22/19 08:00 123 35 139/42 Room Air 07/22/19 07:00 123 07/22/19 07:00 124 29 93/68 Room Air 07/22/19 06:03 123 21 104/77 Room Air 07/22/19 05:00 122 27 90/73 Room Air I & O 07/23/19 07:00 Intake Total 597 ml Output Total 2220 ml Balance -1623 ml Height & Weight Height: '" Weight: 184lbs. 0.0oz. 83.544398hi; 22.16 BMI Method: General Appearance: WD/WN, Anxious, Moderate Distress, Thin HEENT: PERRL/EOMI, Normal ENT Inspection Neck: Full Range of Motion, Normal Inspection, Supple Respiratory: Lungs Clear, Normal Breath Sounds, No Respiratory Distress Cardiovascular: Regular Rate, Rhythm, No Edema, No Murmur Capillary Refill: Less Than 3 Seconds Gastrointestinal: normal bowel sounds, non tender, soft, no organomegaly, no pulsatile mass Extremity: Normal Inspection, Non Tender, No Pedal Edema Neurologic/Psychiatric: Alert, Oriented x3 Skin: Normal Color, Warm/Dry Lymphatic: No Adenopathy Results Lab Laboratory Tests 07/22/19 02:55 07/23/19 03:40 Assessment/Plan Assessment/Plan CP with NSTEMI -Cardiology consulted Hypotension with decreased U0 and concentrated urine. No pitting edema -Give 500ml bolus -Hold Lopressor l for SBP <110 -Hold lasix -Continue IVF NS 125 Afib RVR -cardiology following -Amiodarone gtt currently Psychosis -Risperadol 1mg BID -Haldol PRN CHF - EF 20-25% -Lasix - Has been held secondary to hypotension Hypotension - improved -Monitor Polysubstance abuse Pt has been refusing multiple things. 0630: UPDATE: I was called back to room. Pt has become increasingly agitated and confused. Pt started having intermittent unresponsiveness however would wake up with aggressive stimulation. Accu check was around 200. He attempted to get out of bed. He pulled central line out. His Sp02 was in the 70's and pt developed cyanosis. Ativan, and Haldol was given. Pt not leaving oxygen in place. wrist restraints placed. SBP started to drop into the 70's. Pt was emergently intubated with size 8 ET tube. Central line placed in Left IJ and levophed gtt restarted. Total time spent with pt not including procedures is 60min. Critical Care: Critically Ill Patient Time spent with patient (mins): 60 FLOYD SOLORZANO DO Jul 23, 2019 04:39
[2019-07-23] MEDS: POTASSIUM CL 10MEQ/50ML IVPB 50 ML IV SCH (04:57)
[2019-07-23] MEDS: MAGNESIUM 1 GM/100 ML IVPB 100 ML IV SCH ×3 (04:57→09:18)
[2019-07-23] MEDS: KCL 20 MEQ TAB (K-DUR) PO SCH (04:58)
[2019-07-23] MEDS ORDERED: HALOPERIDOL 5 MG/ML (HALDOL) AMP ONE (05:11)
[2019-07-23] MEDS ORDERED: LORazepam INJ 2 MG/ML (ATIVAN) VIAL ONE (05:18)
[2019-07-23] MEDS ORDERED: PROPOFOL DRIP (ICU) 100 ML IV ONE (05:26)
--- NOTE | 2019-07-23 05:59 | OPERATIVE REPORT ---
DATE OF SERVICE: PREOPERATIVE DIAGNOSES: 1. Hypotension. 2. Questionable cardiogenic shock. 3. Venous insufficiency. POSTOPERATIVE DIAGNOSES: 1. Hypotension. 2. Questionable cardiogenic shock. 3. Venous insufficiency. PROCEDURE: Insertion of triple lumen catheter, right IJ with ultrasound guidance. SURGEON: Wade Marquez DO. SHIP/REC/DOC CONTROL: None. ANESTHESIA: Local lidocaine. BLOOD LOSS: Scant. FLUIDS: None. POSTOPERATIVE CONDITION: Stable. INDICATION FOR PROCEDURE: The patient is a 49-year-old male who is hypotensive, possibly cardiogenic shock. He has very poor cardiac output, ejection fraction of 10% and needs central line access for pressor support because he cannot get IV fluids because of his poor ejection fraction. FINDINGS: The patient had a triple lumen catheter placed in the right IJ with ultrasound guidance. PROCEDURE NOTE: After informed consent was obtained, the patient in his bed in the ICU, was sterilely prepped and draped in normal fashion. Local lidocaine was used to infiltrate the skin above the right neck, had first checked with ultrasound machine to make sure that we could visualize the right IJ, it was very visible. At this point, then under negative inspiration, advanced 18-gauge fine needle with the ultrasound in place and watched the needle to go right into the right internal jugular vein. Good flash of blood was obtained and then carefully removed the syringe, placed a guidewire down the needle using Seldinger technique, it went in easily, checked with the ultrasound, it was in good position. I made a stab incision along the guidewire with a #11 blade and then over the guidewire, placed a dilator using Seldinger technique and removed this and then over the guidewire, placed the triple lumen catheter, went in easily, removed the guidewire and then placed 3 locking ports on each end and then easily aspirated and got a good flash of blood and then flushed with normal saline, sutured the triple lumen catheter in place putting locking hub over catheter at about 15 cm and then sutured this in place with a 3-0 silk suture. Once this was done, then carefully cleaned the area, placed a bite guard underneath the triple lumen catheter and then Tegaderm dressing. The patient tolerated the procedure. Sponge, instrument and needle count correct at the end of the case. Job ID: [id number] DocumentID: [id number] Dictated Date: 07/23/2019 00:38:43 Fur Puller Date: 07/23/2019 05:58:36 Dictated By: DO MANJINDER BOYD
[2019-07-23] MEDS: PROPOFOL DRIP (ICU) 100 ML IV SCH ×2 (06:00→14:42)
[2019-07-23] MEDS ORDERED: NS IV 1000 ML 1,000 ML IV SCH (06:00)
[2019-07-23] MEDS: NS IV 500 ML 500 ML IV SCH ×2 (06:00→08:37)
--- NOTE | 2019-07-23 06:29 | Pulmonary Procedures ---
Pulmonary Procedures Date of Procedure Date of Service: Jul 23, 2019 Lumen: triple (US guided ) Central Line Procedure: betadine prep, sterile drapes applied, sterile dressing applied Position: internal jugular (R) Anesthesia: Lidocaine Volume Anesthetic (ccs): 5 Complications: none Post Position: sutured, good blood return, position confirmed w/ CXR (CXR is pending ) FLOYD SOLORZANO DO Jul 23, 2019 06:29
[2019-07-23] MEDS: NS IV 1000 ML 1,000 ML IV SCH ×2 (06:30→22:58)
--- NOTE | 2019-07-23 06:30 | Pulmonary Procedures ---
Pulmonary Procedures Date of Procedure Date of Service: Jul 23, 2019 Time of Intubation: 06:29 Intubation Method: orotracheal Tube Size: 8 Medications: Fentanyl, Propofol, Succinylcholine Positive End Tide CO2: Yes Breath Sounds after Intubation: bilateral-equal Intubation Complications: no complications Post Intubation Xray: Yes (CXR pending ) FLOYD SOLORZANO DO Jul 23, 2019 06:30
[2019-07-23] MEDS ORDERED: ROCURONIUM 10 MG/ML 5 ML SYRINGE IV ONE (07:34)
[2019-07-23] MEDS ORDERED: fentaNYL INJECTION 100 MCG/2 ML AMP INJ ONE (07:34)
[2019-07-23] MEDS ORDERED: SUCCINYLCHOLINE INJ 100 MG/5 ML SYR INJ ONE (07:34)
--- NOTE | 2019-07-23 07:45 | Anesthesia-Procedure Note ---
Procedures/Interventions Procedure Start/Stop/Diagnosis Date of Procedure: Jul 23, 2019 Start Time: 07:35 Stop Time: 07:42 Arterial Line Arterial Line Catheter: 20G Type: Radial Location: Right Procedure: prepped, draped in sterile fashion, good wave-form was obtained, patient tolerated procedure well, no immediate complications, post procedure area cleaned, post procedure dressing applied LUISITO JOE CRNA Jul 23, 2019 07:45
[2019-07-23] MEDS: inSUlin ASPART (NovoLOG) 1 UNIT/0.01 ML (CHARGE PER UNIT) SC SCH ×3 (07:50→18:03)
[2019-07-23] MEDS: D5 NS 1000 ML IV SOLUTION 1,000 ML IV SCH (07:50)
--- NOTE | 2019-07-23 07:50 | Diagnostic Imaging Report ---
CHEST 1 VIEW, AP/PA ONLY Indication: Congestive heart failure Comparison: 07/22/2019 Findings: Right IJ central venous catheter has tip in the upper SVC. Right basilar heterogeneous consolidations are unchanged. Trace right pleural effusion is similar. No pneumothorax. Stable cardiomediastinal silhouette. Impression: 1. Well-positioned right IJ central venous catheter without pneumothorax. 2. No change in right basilar heterogeneous consolidations that could be due to the pneumonia. Dictated by: Dictated on workstation # [id number]
--- NOTE | 2019-07-23 07:51 | Diagnostic Imaging Report ---
CHEST 1 VIEW, AP/PA ONLY Indication: Intubation Comparison: Earlier same day at 3:18 AM Findings: ET tube has tip 5 cm above the radha. Enteric tube courses into the stomach and off the [id number]. Right IJ central venous catheter has been removed. Left IJ central venous catheter has been placed and has tip terminating in the region of upper SVC. Progression of right mid and lower lung zone consolidations. No pneumothorax. Stable cardiomediastinal silhouette. Impression: 1. Support devices are in good position. 2. No pneumothorax. 3. Progression of right pulmonary opacities. Dictated by: Dictated on workstation # [id number]
[2019-07-23] MEDS: RT-ALBUTEROL/IPRATROPIUM 3 ML (DUONEB) VIAL INH SCH ×5 (07:53→21:29)
[2019-07-23 08:05] LABS: ABG BASE EXCESS -5.7 MMOL/L (-2.5-2.5); ABG OXYGEN SATURATION 98 % (94-100); ABG PCO2 37 MMHG (35-45); ABG PO2 125 MMHG (79-93); ABG TCO2 20.4 MMOL/L (21.0-31.0)
[2019-07-23 08:07] LABS: ABG PH 7.34 (7.37-7.43)
[2019-07-23 08:08] LABS: ALLENS TEST pos; VENTILATOR YES
[2019-07-23 08:09] LABS: PATIENT TEMP 36
[2019-07-23 08:12] LABS: INSPIRED O2 100%
--- NOTE | 2019-07-23 08:46 | NUR ---
Timeline note below: 0515- Dr. Leggett at bedside, patient increasingly aggitated and restless. Patient pulled out Right IJ triple lumen. 5mg Haldol given. 0525- Dr. Leggett still at beside, patient aggressive and pulling at IV and oxygen tubing. Ativan 2mg given. 0536- Dr. Leggett still at bedside, pt respiratory status deteriorating, patient SBP in 40's. 50mcg Fentanyl given at this time (remainder 50mcg wasted by this RN and witnessed by RAÚL Woods). 0538- [address] Leggett. 0539- 80mg succinylcholine given. 0541- Size 8 ET tube, 24 at the lip. Bilateral breath sounds heard at this time. 0543- OG tube inserted. 0545- Ly catheter size 16 inserted. 0550- Left IJ tirple lumen placement began. 0605- 50mg Rocuronium given. 0635- Stat CXR to confirm placement. 0640- Dr. Leggett reviewed CXR and confirmed placement.
[2019-07-23 09:14] LABS: CLARITY,URINE CLEAR; COLOR,URINE YELLOW; GLUCOSE, URINE (UA) 2+ (NEGATIVE); KETONES,URINE NEGATIVE (NEGATIVE); LEUKOCYTE ESTERASE ,URINE 1+ (NEGATIVE); NITRITE,URINE NEGATIVE (NEGATIVE); PH,URINE 5 (5-9); PROTEIN,URINE 4+ (NEGATIVE); UROBILINOGEN,URINE 4 MG/DL (NORMAL)
[2019-07-23] MEDS ORDERED: FUROSEMIDE 40 MG/4 ML INJ (LASIX) IVP NR (09:15)
[2019-07-23] MEDS: risperiDONE 1 MG (RisperDAL) TAB PO SCH ×2 (09:18→20:52)
[2019-07-23] MEDS: meTOprolol TARTRATE 25 MG (LOPRESSOR) TABLET PO SCH ×4 (09:18→20:51)
[2019-07-23] MEDS: APIXABAN 5 MG (ELIQUIS) TABLET PO SCH ×2 (09:18→20:51)
[2019-07-23 09:33] LABS: BACTERIA,URINE FEW /HPF; BILIRUBIN,URINE 1+ (NEGATIVE)
--- NOTE | 2019-07-23 10:16 | Occ Therapy Progress Note ---
Therapy Progress Note OT order received. Chart reviewed. Pt. currently sedated and on ventilation. Will continue to monitor and will assess after intubation. [id number] CURTIS NEGRON OT Jul 23, 2019 10:16
--- NOTE | 2019-07-23 11:03 | Physical Therapy Progress Note ---
Therapy Progress Note Patient is currently sedated and on mechanical ventilator. PT to monitor patient status and assess when patient is able to actively participate with PT. ROWENA MUNOZ PT Jul 23, 2019 11:03
[2019-07-23] MEDS ORDERED: LIDOCAINE 1% INJ 20 ML 20 ML VIAL ONE (11:42)
[2019-07-23] MEDS ORDERED: HEParin (CATH LAB) 2,000 ML IV ONE (11:42)
--- NOTE | 2019-07-23 12:40 | NUR ---
PT TO NEON SIGN INSTALLER VIA BED ACCOMPANIED BY RT AND NEON SIGN INSTALLER STAFF. THIS RN SPOKE WITH MOTHER ROMERO LAZARO EARLIER IN SHIFT AND UPDATED HER ON PT'S CONDITION AND PLANNED PROCEDURE CONSENT OBTAINED VIA TELEPHONE WITH 2ND WITNESS BY Laurie STEVENSON RN.
--- NOTE | 2019-07-23 13:05 | Cardiology Progress Note ---
Cardiology SOAP Progress Note Subjective: intubated/ventilated Objective: I&O/Vital Signs 07/24/19 07/24/19 07/24/19 07/24/19 05:00 05:00 06:00 06:01 Pulse 66 66 67 67 Resp 30 26 B/P (MAP) 123/61 (81) 119/67 (84) 118/67 (84) 117/66 (83) Pulse Ox 97 97 O2 Delivery Mechanical Ventilator Mechanical Ventilator O2 Flow Rate 30.00 30.00 07/24/19 07/24/19 07/24/19 07/24/19 06:16 06:26 06:39 06:48 Pulse 67 71 Resp 28 38 B/P (MAP) 120/67 94/52 (66) Pulse Ox 97 90 O2 Delivery Mechanical Ventilator Mechanical Ventilator O2 Flow Rate 21.00 21.00 FiO2 30 07/24/19 07/24/19 07/24/19 07/24/19 06:48 07:00 07:00 07:00 Pulse 89 89 89 Resp 24 B/P (MAP) 128/64 (85) 125/58 (80) Pulse Ox 91 O2 Delivery Mechanical Ventilator Mechanical Ventilator O2 Flow Rate 30.00 40.00 07/24/19 07/24/19 07/24/19 07/24/19 08:00 08:00 08:00 08:13 Temp 37.0 Pulse 89 89 89 Resp 21 37 B/P (MAP) 120/56 (77) 120/56 (77) 117/56 Pulse Ox 92 92 91 O2 Delivery Mechanical Ventilator Mechanical Ventilator Mechanical Ventilator O2 Flow Rate 40.00 40.00 FiO2 40 07/24/19 07/24/19 07/24/19 07/24/19 09:00 09:00 10:00 10:00 Pulse 84 84 81 84 Resp 30 31 B/P (MAP) 128/67 (87) 128/67 (87) 104/57 (73) 104/57 (73) Pulse Ox 91 93 O2 Delivery Mechanical Ventilator Mechanical Ventilator O2 Flow Rate 40.00 40.00 07/24/19 07/24/19 07/24/19 07/24/19 10:35 11:00 11:00 12:00 Temp 37.0 Pulse 80 80 80 Resp 39 37 B/P (MAP) 102/55 (71) 102/55 (71) Pulse Ox 92 93 95 O2 Delivery Mechanical Ventilator Mechanical Ventilator O2 Flow Rate 40.00 FiO2 40 40 07/24/19 07/24/19 07/24/19 12:00 12:00 13:00 Temp 37.0 Pulse 78 78 78 Resp 35 B/P (MAP) 99/53 (68) 99/53 (68) Pulse Ox 95 O2 Delivery Mechanical Ventilator O2 Flow Rate 40.00 07/24/19 00:00 Intake Total 1258 ml Output Total 538 ml Balance 720 ml Weight (Pounds): 173 Weight (Ounces): 0.0 Weight (Calculated Kilograms): 78.988938 Constitutional: appears stated age; No apparent distress; well-developed, well- nourished, other (intubated/ventilated) Respiratory: other (intubated/ventilated.) Cardiovascular: regular rate-rhythm, tachycardia, S1 and S2 Gastrointestional: soft, round, audible bowel sounds; No spleenomegaly Extremities: normal range of motion, non-tender, normal inspection; No clubbing, No cyanosis; no lower extremity edema bilateral; No significant edema Neurologic/Psychiatric: other (intubated/ventilated) Skin: cool; No rash, No ulcerations Results/Procedures: Labs Laboratory Tests 07/23/19 18:00: Glucometer 210H 07/24/19 00:04: Glucometer 180H 07/24/19 03:08: White Blood Count 10.6, Red Blood Count 4.68, Hemoglobin 14.7, Hematocrit 43, Mean Corpuscular Volume 93, Mean Corpuscular Hemoglobin 31, Mean Corpuscular Hemoglobin Concent 34, Red Cell Distribution Width 12.9, Platelet Count 244, Mean Platelet Volume 10.6H, Neutrophils (%) (Auto) 64, Lymphocytes (%) (Auto) 23, Monocytes (%) (Auto) 13H, Eosinophils (%) (Auto) 0, Basophils (%) (Auto) 0, Neutrophils # (Auto) 6.8, Lymphocytes # (Auto) 2.4, Monocytes # (Auto) 1.4H, Eosinophils # (Auto) 0.0, Basophils # (Auto) 0.0, Blood Gas Puncture Site LEFT RADIAL ARTLINE, Blood Gas Patient Temperature 36.8, Arterial Blood pH 7.35L, Arterial Blood Partial Pressure CO2 29L, Arterial Blood Partial Pressure O2 86, Arterial Blood HCO3 16*L, Arterial Blood Total CO2 16.4L, Arterial Blood Oxygen Saturation 96, Arterial Blood Base Excess -8.9L, Christ Test ARTLINE, Blood Gas Ventilator Setting YES, Blood Gas Inspired Oxygen 30%, Sodium Level 130L, Potassium Level 4.5, Chloride Level 105, Carbon Dioxide Level 16L, Anion Gap 9, Blood Urea Nitrogen 35H, Creatinine 1.26, Estimat Glomerular Filtration Rate > 60, BUN/Creatinine Ratio 28, Glucose Level 125H, Calcium Level 7.8L, Phosphorus Level 5.0H, Magnesium Level 2.0 07/24/19 11:37: Glucometer 174H Microbiology 07/23/19 Blood Culture - Preliminary, Resulted No growth 07/23/19 Gram Stain - Final, Resulted 07/23/19 Sputum Culture - Preliminary, Resulted Usual Mixed Danica Haemophilus influenza 07/23/19 Urine Culture - Final, Complete NO GROWTH A/P: Assessment/Dx: Cardiogenic shock Atrial tachycardia with 2-1 AV block, status post cardioversion yesterday. Dilated cardiomyopathy, History of congenital heart disease, hypotension, drug abuse Plan: Cardiogenic shock, on non-epinephrine infusion. Urgent coronary angiography and intra-aortic balloon pump is recommended. Atrial tachycardia with 2-1 AV block, Eliquis. Metoprolol. I discussed at length with the patient and recommended transesophageal echocardiogram assisted cardioversion. Informed consent was taken. Risk of esophageal damage as well as stroke was also discussed. History of congenital heart disease, need to get old records. Echocardiogram showed poor LV systolic function. hypotension, drug abuse, defer to primary team. Thank you for your consultation. Please call me if you have any questions. Star Randle MD, FACP, FACC, FSCAI, FHRS, CCDS Interventional Cardiology Cardiac Electrophysiology Vascular Medicine and Endovascular Interventions Focused Exam Lactate Level 07/23/19 08:30: Lactic Acid Level 0.85 Clinical Quality Measures AMI/AHF: ASA po Prior to arrival: Yes Mendoza RANDLE MD Jul 23, 2019 13:05
[2019-07-23] MEDS ORDERED: HEParin 1000 UNIT/ML (10ML VIAL) FOR BOLUS ONE (13:22)
[2019-07-23] MEDS ORDERED: HEParin DRIP 25000 UNIT/500ML 500 ML IV ONE (13:25)
--- NOTE | 2019-07-23 14:20 | NUR ---
IABP Sutures in place, 40cc Balloon, 8Fr Sheath, Right Groin site c/d/i, Distal pulses weak, regular. Trigger: Pattern ECG: II/AUTO Assist: 1:1 HR: 60 SBP: 79 AUDREY: 50 Au Pt arrived to ICU room at this time. VSS. Report received from car barn laborer at this time at bedside. Will continue to closely monitor.
--- NOTE | 2019-07-23 14:36 | Progress Note - Hospitalist ---
Subjective HPI/CC On Admission Date Seen by Provider: Jul 23, 2019 Time Seen by Provider: 10:00 chest pain Subjective/Events-last exam He is intubated and sedated this morning on my examination. Focused Exam Lactate Level 07/23/19 08:30: Lactic Acid Level 0.85 Objective Exam Vital Signs Vital Signs Date Time Temp Pulse Resp B/P (MAP) Pulse Ox O2 Delivery O2 Flow Rate FiO2 07/23/19 14:00 69 17 149/73 (98) 99 Mechanical Ventilator 60.00 07/23/19 13:02 36.1 07/23/19 12:31 60 Capillary Refill : Less Than 3 Seconds General Appearance: No Apparent Distress, Other (intubated and sedated) HEENT: PERRL/EOMI, Pharynx Normal Neck: Normal Inspection, Supple Respiratory: Lungs Clear, Other (intubated and mechanically ventilated) Cardiovascular: Regular Rate, Rhythm Gastrointestinal: Normal Bowel Sounds, Soft Extremity: Normal Inspection, No Pedal Edema Neurologic/Psychiatric: Other (sedated) Skin: Cool Results/Procedures Lab Laboratory Tests 07/23/19 03:40 Patient resulted labs reviewed. Imaging: Reviewed Imaging Report Assessment/Plan Assessment and Plan Assess & Plan/Chief Complaint Shock -Possibly cardiogenic -Started on Levophed with MAP goal 65 -Blood cultures drawn -No leukocytosis or left shift, no lactic acidosis -Urine culture pending -Hold off on antibiotics at this time Agitation -Interfering with medical care, pulling lines necessary for pressors -Intubated and sedated in restraints Atrial fibrillation Heart failure with reduced ejection fraction NSTEMI Congenital heart disease -SRINI cardioversion 07/22 -Continue Eliquis Cannabis abuse Recommended cessation Critical Care Critically Ill Patient Diagnosis/Problems Diagnosis/Problems (1) Shock Status: Acute (2) NSTEMI (non-ST elevated myocardial infarction) Status: Acute (3) Atrial fibrillation Status: Acute (4) Heart failure with reduced ejection fraction Status: Acute (5) Polysubstance abuse Status: Chronic Clinical Quality Measures AMI/AHF: ASA po Prior to arrival: Yes DVT/VTE Risk/Contraindication: Risk Factor Score Per Nursin RFS Level Per Nursing on Admit: 3=High VIELKA NEWMAN MD Jul 23, 2019 14:36
[2019-07-23] MEDS: AMIODARONE INJECTION 450 MG in D5W IV SOLUTION (EXCEL) 250 ML IV SCH (14:41)
[2019-07-23] MEDS: NOREPINEPHRINE 8 MG in NS (IVPB) 250 ML IV SCH ×2 (14:43→22:58)
--- NOTE | 2019-07-23 15:00 | NUR ---
IABP Sutures in place, 40cc Balloon, 8Fr Sheath, Right Groin site c/d/i, Distal pulses weak, regular. Trigger: Pattern ECG: II/AUTO Assist: 1:2 HR: 60 SBP: 78 Assisted/87 Unassisted AUDREY: 55 Assisted/64 Unassisted MAP: 88 Assisted/69 Unassisted Au
--- NOTE | 2019-07-23 15:29 | Coronary Angiography Report ---
Coronary Angiography Report DATE OF PROCEDURE: 07/23/19 INDICATION: Cardiogenic shock. PREOPERATIVE DIAGNOSIS: Cardiogenic shock. POSTOPERATIVE DIAGNOSIS: Cardiogenic shock, patent epicardial coronary arteries, intra-aortic balloon pump placement. HISTORY: This is a 49-year-old gentleman with severe cardiomyopathy and cardiogenic shock. He presented with atrial tachycardia and AV block. Successful transesophageal echocardiogram assisted cardioversion was done on 07/22/2019. Patient was hypotensive on the evening of 07/22/2019 and received IV fluid resuscitation. Subsequently the patient developed severe respiratory distress and had to be intubated and placed on pressors. Coronary angiography and intra-aortic balloon pump placement is recommended. PROCEDURES PERFORMED: 1.Coronary angiography. 2.Left heart catheterization. 3. Aortic arch angiogram, medical necessity; to assess the arch before placement of an intra-aortic balloon pump. 4. Intra-aortic balloon pump placement. COMPLICATIONS: None. SPECIMENS: None. ESTIMATED BLOOD LOSS: 10 mL ANESTHESIA: Conscious sedation ANTICOAGULATION: IV heparin CONTRAST: 45 mL. FLUOROSCOPY: 4.1 minutes. FLOUROSCOPY DOSE: 117 mgy. PROCEDURE DETAILS: The patient is a 49 male and was brought to the computer laboratory technician after informed consent was taken from the family.. All the risks and complications were explained in detail; this included the risk of bleeding, vascular damage, stroke, TN and even . The patient was draped and prepped in the usual sterile fashion. Access was gained in the right femoral artery with a 6 Martiniquais sheath. Coronary angiography and left heart catheterization was performed with a JR4 and JL4 catheter. Aortic arch angiogram was performed with a pigtail catheter. 40 mL intra-aortic balloon pump was placed below the ostium of the left subclavian artery. Augmented blood pressure was about 120 mmHg. IV heparin infusion was started. FINDINGS: 1.Left main: Patent. 2.LAD: Patent. 3.Left circumflex artery: Patent. 4.RCA: Patent. 5.Left heart catheterization: LV pressure 128/21 mmHg. LVEDP 41 mmHg. Aortic pressure 119/35 mmHg. LV gram not done. 6. Aortic arch angiogram: No evidence of aortic dissection or aneurysm. Patent proximal segments of the great arteries. CONCLUSIONS: Cardiogenic shock, nonischemic cardiomyopathy, intra-aortic balloon pump placement. Star Randle MD, FACP, FACC, [facility] Interventional Cardiology Mendoza RANDLE MD Jul 23, 2019 15:29
--- NOTE | 2019-07-23 15:29 | Cardiac Procedure Note-CS/ASA ---
Pre-Procedure Note Pre-Op Procedure Note H&P Reviewed The H&P was reviewed, patient examined and no changes noted. Date H&P Reviewed: Jul 23, 2019 Time H&P Reviewed: 12:00 Conscious Sedation Pre-Proced Time 12:00 ASA Score 3 For ASA 3 and 4: Consider anesthesia and medical clearance. Also, for patients with a history of failed moderate sedation consider anesthesia. Airway Lungs Heart ASA score ASA 1: a normal healthy patient ASA 2: a patient with a mild systemic disease (mid diabetes, controlled hypertension, obesity ASA 3: a patient with a severe systemic disease that limits activity (angina, COPD, prior Myocardial infarction) ASA 4: a patient with an incapacitating disease that is a constant threat to life (CHF, renal failure) ASA 5: a moribund patient not expected to survive 24 hrs. (ruptured aneurysm) ASA 6: a declared brain- patient whose organs are being harvested. For emergent operations, add the letter E after the classification Mallampati Classification Grade 1 Sedation Plan Analgesia, Amnesia, Plan communicated to team members, Discussed options with patient/fam, Discussed risks with patient/fam The patient is an appropriate candidate to undergo the planned procedure, sedation, and anesthesia. The patient immediately re-assessed prior to indication. Mendoza SALAZAR MD Jul 23, 2019 15:29
[2019-07-23] MEDS ORDERED: PATIENT MAY USE OWN MEDS, ALL PO SCH (15:30)
--- NOTE | 2019-07-23 16:00 | NUR ---
IABP Sutures in place, 40cc Balloon, 8Fr Sheath, Right Groin site c/d/i, Distal pulses weak, regular. Trigger: Pattern ECG: II/AUTO Assist: 1:2 HR: 57 SBP: 68 Assisted/79 Unassisted AUDREY: 49 Assisted/56 Unassisted MAP: 78 Assisted/60 Unassisted Au
--- NOTE | 2019-07-23 16:57 | NUR ---
IABP Sutures in place, 40cc Balloon, 8Fr Sheath, Right Groin site c/d/i, Distal pulses weak, regular. Trigger: Pattern ECG: II/AUTO Assist: 1:2 HR: 55 SBP: 67 Assisted/76 Unassisted AUDREY: 46 Assisted/55 Unassisted MAP: 76 Assisted/59 Unassisted Au
--- NOTE | 2019-07-23 19:00 | NUR ---
IABP Sutures in place, 40cc Balloon, 8Fr Sheath, Right Groin site C/D/I, Doppler Dorsalis Pedis right, Posterior Tibial bilaterally, Right Radial. Weak/Regular. Trigger: Pattern ECG: II/AUTO Assist: 1:2 HR: 55 SBP: 69 Assisted/81 Unassisted AUDREY: 48 Assisted/57 Unassisted MAP: 79 Assisted/60 Unassisted Au
--- NOTE | 2019-07-23 20:00 | NUR ---
IABP Sutures in place, 40cc Balloon, 8Fr Sheath, Right Groin site C/D/I, Doppler Dorsalis Pedis right, Posterior Tibial bilaterally, Right Radial. Weak/Regular. Trigger: Pattern ECG: II/AUTO Assist: 1:2 HR: 56 SBP: 87 Assisted/87 Unassisted AUDREY: 51 Assisted/62 Unassisted MAP: 85 Assisted/66 Unassisted Au
[2019-07-23] MEDS: MELATONIN 3 MG TABLET PO SCH (20:52)
--- NOTE | 2019-07-23 21:00 | NUR ---
IABP Sutures in place, 40cc Balloon, 8Fr Sheath, Right Groin site C/D/I, Doppler Dorsalis Pedis right, Posterior Tibial bilaterally, Right Radial. Weak/Regular. Trigger: Pattern ECG: II/AUTO Assist: 1:2 HR: 57 SBP: 89 Assisted/91 Unassisted AUDREY: 54 Assisted/64 Unassisted MAP: 89 Assisted/68 Unassisted Au
--- NOTE | 2019-07-23 21:56 | NUR ---
Patient mom Lyndsay here earlier in the day as reported by staff, staff told this narrative writer that mom Lyndsay took patient belongings home with her. Wallet and cell phone in custody of Lyndsay patient mom as reported to this RN by Yuki OLSEN.
--- NOTE | 2019-07-23 22:00 | NUR ---
IABP Sutures in place, 40cc Balloon, 8Fr Sheath, Right Groin site C/D/I, Doppler Dorsalis Pedis right, Posterior Tibial bilaterally, Right Radial. Weak/Regular. Trigger: Pattern ECG: II/AUTO Assist: 1:2 HR: 63 SBP: 104 Assisted/95 Unassisted AUDREY: 58 Assisted/72 Unassisted MAP: 98 Assisted/80 Unassisted Au
--- NOTE | 2019-07-23 23:00 | NUR ---
IABP Sutures in place, 40cc Balloon, 8Fr Sheath, Right Groin site C/D/I, Doppler Dorsalis Pedis right, Posterior Tibial bilaterally, Right Radial. Weak/Regular. Trigger: Pattern ECG: II/AUTO Assist: 1:2 HR: 66 SBP: 90 Assisted/107 Unassisted AUDREY: 63 Assisted/70 Unassisted MAP: 101 Assisted/77 Unassisted Au
[2019-07-24] VITALS (18 sets, daily range): BP systolic 94–135; BP diastolic 52–77
[2019-07-24] MEDS: inSUlin ASPART (NovoLOG) 1 UNIT/0.01 ML (CHARGE PER UNIT) SC SCH ×3 (00:05→11:59)
--- NOTE | 2019-07-24 00:05 | NUR ---
IABP Sutures in place, 40cc Balloon, 8Fr Sheath, Right Groin site C/D/I, Doppler Dorsalis Pedis right, Posterior Tibial bilaterally, Right Radial. Weak/Regular. Trigger: Pattern ECG: II/AUTO Assist: 1:2 HR: 66 SBP: 93 Assisted/113 Unassisted AUDREY: 64 Assisted/73 Unassisted MAP: 106 Assisted/79 Unassisted Au
[2019-07-24] MEDS: PROPOFOL DRIP (ICU) 100 ML IV SCH ×2 (00:12→08:13)
--- NOTE | 2019-07-24 01:00 | NUR ---
IABP Sutures in place, 40cc Balloon, 8Fr Sheath, Right Groin site C/D/I, Doppler Dorsalis Pedis right, Posterior Tibial bilaterally, Right Radial. Weak/Regular. Trigger: Pattern ECG: II/AUTO Assist: 1:2 HR: 65 SYS: 98 Assisted/98 Unassisted AUDREY: 56 Assisted/68 Unassisted MAP: 94 Assisted/73 Unassisted Au
[2019-07-24] MEDS: RT-ALBUTEROL/IPRATROPIUM 3 ML (DUONEB) VIAL INH SCH ×3 (01:08→10:35)
--- NOTE | 2019-07-24 02:00 | NUR ---
IABP Sutures in place, 40cc Balloon, 8Fr Sheath, Right Groin site C/D/I, Doppler Dorsalis Pedis right, Posterior Tibial bilaterally, Right Radial. Weak/Regular. Trigger: Pattern ECG: II/AUTO Assist: 1:2 HR: 66 SYS: 86 Assisted/105 Unassisted AUDREY: 61 Assisted/69 Unassisted MAP: 99 Assisted/75 Unassisted Au
--- NOTE | 2019-07-24 03:00 | NUR ---
IABP Sutures in place, 40cc Balloon, 8Fr Sheath, Right Groin site C/D/I, Doppler Dorsalis Pedis right, Posterior Tibial bilaterally, Right Radial. Weak/Regular. Trigger: Pattern ECG: II/AUTO Assist: 1:2 HR: 67 SYS: 87 Assisted/106 Unassisted AUDREY: 58 Assisted/70 Unassisted MAP: 98 Assisted/74 Unassisted Au
[2019-07-24 03:19] LABS: BASOPHILS % (AUTO) 0 % (0-10); EOSINOPHILS % (AUTO) 0 % (0-10); HEMATOCRIT 43 % (40-54); HEMOGLOBIN 14.7 G/DL (13.3-17.7); LYMPHOCYTES # (AUTO) 2.4 X 10^3 (1.0-4.0); LYMPHOCYTES % (AUTO) 23 % (12-44); MEAN CORPUSCULAR HEMOGLOBIN 31 PG (25-34); MEAN CORPUSCULAR HGB CONC 34 G/DL (32-36); MEAN CORPUSCULAR VOLUME 93 FL (80-99); MEAN PLATELET VOLUME 10.6 FL (7.4-10.4); MONOCYTES # (AUTO) 1.4 X 10^3 (0.0-1.0); MONOCYTES % (AUTO) 13 % (0-12); NEUTROPHILS # (AUTO) 6.8 X 10^3 (1.8-7.8); NEUTROPHILS % (AUTO) 64 % (42-75); PLATELET COUNT 244 10^3/uL (130-400); RED CELL DISTRIBUTION WIDTH 12.9 % (10.0-14.5); WHITE BLOOD COUNT 10.6 10^3/uL (4.3-11.0)
[2019-07-24 03:24] LABS: ABG BASE EXCESS -8.9 MMOL/L (-2.5-2.5); ABG OXYGEN SATURATION 96 % (94-100); ABG PCO2 29 MMHG (35-45); ABG PH 7.35 (7.37-7.43); ABG PO2 86 MMHG (79-93); ABG TCO2 16.4 MMOL/L (21.0-31.0)
[2019-07-24 03:28] LABS: ALLENS TEST ARTLINE; INSPIRED O2 30%; VENTILATOR YES
[2019-07-24 03:29] LABS: PATIENT TEMP 36.8
[2019-07-24 03:39] LABS: BUN/CREATININE RATIO 28; CALCIUM 7.8 MG/DL (8.5-10.1); CARBON DIOXIDE 16 MMOL/L (21-32); CHLORIDE 105 MMOL/L (98-107); CREATININE SERUM 1.26 MG/DL (0.60-1.30); GFR ESTIMATED > 60; GLUCOSE 125 MG/DL (70-105); POTASSIUM 4.5 MMOL/L (3.6-5.0); SODIUM 130 MMOL/L (135-145)
--- NOTE | 2019-07-24 04:06 | NUR ---
IABP Sutures in place, 40cc Balloon, 8Fr Sheath, Right Groin site C/D/I, Doppler Dorsalis Pedis right, Posterior Tibial bilaterally, Right Radial. Weak/Regular. Trigger: Pattern ECG: II/AUTO Assist: 1:2 HR: 67 SYS: 84 Assisted/105 Unassisted AUDREY: 56 Assisted/65 Unassisted MAP: 95 Assisted/73 Unassisted Au
[2019-07-24] MEDS: POTASSIUM CL 10MEQ/50ML IVPB 50 ML IV SCH (04:09)
[2019-07-24] MEDS: KCL 20 MEQ TAB (K-DUR) PO SCH (04:09)
[2019-07-24] MEDS: MAGNESIUM 1 GM/100 ML IVPB 100 ML IV SCH (04:09)
--- NOTE | 2019-07-24 04:42 | Pulmonary Progress Note ---
ALICIA PUGH,MED STUDENT 07/24/19 0442: Subjective Date Seen by a Provider: Jul 24, 2019 Time Seen by a Provider: 04:38 Subjective/Events-last exam Patient is sedated and on a ventilator and has a balloon pump. Sepsis Event Evaluation Height, Weight, BMI Height: '" Weight: 173lbs. 0.0oz. 78.620981nd; 22.16 BMI Method: Focused Exam Lactate Level 07/23/19 08:30: Lactic Acid Level 0.85 Exam Exam Vital Signs Date Time Temp Pulse Resp B/P (MAP) Pulse Ox O2 Delivery O2 Flow Rate FiO2 07/24/19 04:00 97 Mechanical Ventilator 30 07/24/19 04:00 36.8 67 30 117/68 (84) 97 Mechanical Ventilator 30.00 07/24/19 04:00 67 119/67 (84) 07/24/19 03:00 67 123/70 (87) 07/24/19 03:00 67 27 111/70 (84) 97 Mechanical Ventilator 30.00 07/24/19 02:00 66 129/72 (91) 07/24/19 02:00 66 28 122/71 (88) 97 Mechanical Ventilator 30.00 07/24/19 01:08 94 28 96 60 07/24/19 01:00 64 27 114/72 (86) 96 Mechanical Ventilator 30.00 07/24/19 01:00 65 07/24/19 01:00 64 119/70 (86) 07/24/19 00:12 66 26 129/73 96 Mechanical Ventilator 30.00 07/24/19 00:00 96 Mechanical Ventilator 30 07/24/19 00:00 65 122/65 (84) 07/24/19 00:00 36.2 66 29 135/77 (96) 96 Mechanical Ventilator 30.00 07/23/19 23:00 66 25 124/66 (85) 97 Mechanical Ventilator 30.00 07/23/19 23:00 66 125/66 (85) 07/23/19 22:00 64 126/72 (90) 07/23/19 22:00 64 25 127/72 (90) 98 Mechanical Ventilator 30.00 07/23/19 21:29 57 26 96 60 07/23/19 21:00 57 123/57 (79) 07/23/19 21:00 57 27 116/60 (78) 99 Mechanical Ventilator 30.00 07/23/19 20:00 98 Mechanical Ventilator 30 07/23/19 20:00 56 106/56 (73) 07/23/19 20:00 36.2 56 27 104/60 (75) 98 Mechanical Ventilator 30.00 07/23/19 19:00 54 94/48 (63) 07/23/19 19:00 54 23 91/51 (64) 98 Mechanical Ventilator 30.00 07/23/19 19:00 54 07/23/19 18:35 53 26 99 60 07/23/19 18:00 54 88/51 (63) 07/23/19 18:00 54 25 94/45 (61) 98 Mechanical Ventilator 30.00 07/23/19 17:00 55 26 87/52 (64) 98 Mechanical Ventilator 30.00 07/23/19 16:59 55 83/52 (62) 07/23/19 16:00 57 87/51 (63) 07/23/19 16:00 98 Mechanical Ventilator 30 07/23/19 15:41 36.0 58 27 90/53 (65) 98 07/23/19 15:00 60 26 102/60 (74) 96 Mechanical Ventilator 30.00 07/23/19 15:00 60 102/60 (74) 07/23/19 14:46 Mechanical Ventilator 30.00 07/23/19 14:42 59 07/23/19 14:42 58 22 96 60 07/23/19 14:25 60 28 88/53 (65) 97 Mechanical Ventilator 40.00 07/23/19 14:00 Mechanical Ventilator 40.00 07/23/19 14:00 69 17 149/73 (98) 99 Mechanical Ventilator 60.00 07/23/19 13:02 36.1 73 44 132/89 (103) 92 07/23/19 12:33 73 07/23/19 12:31 93 Mechanical Ventilator 60 07/23/19 12:00 73 125/87 (100) 93 Mechanical Ventilator 60.00 07/23/19 11:00 70 25 116/92 92 Mechanical Ventilator 60.00 07/23/19 10:29 Mechanical Ventilator 60.00 07/23/19 10:22 69 24 95 60 07/23/19 10:00 97 117/83 99 Mechanical Ventilator 80.00 07/23/19 09:00 73 132/92 95 Mechanical Ventilator 80.00 07/23/19 08:50 99 Mechanical Ventilator 80 07/23/19 08:10 Mechanical Ventilator 80.00 07/23/19 08:00 74 117/63 100 Mechanical Ventilator 100.00 07/23/19 07:53 121 22 100 80 07/23/19 07:42 66 07/23/19 07:00 70 128/97 Mechanical Ventilator 100.00 07/23/19 06:15 70 21 72/51 Mechanical Ventilator 100.00 07/23/19 06:00 60 21 54/30 Mechanical Ventilator 100.00 07/23/19 06:00 92/64 07/23/19 05:46 67 22 100 07/23/19 05:46 67 22 93/50 Mechanical Ventilator 100.00 07/23/19 05:00 70 22 75/58 98 High Flow N/C 3.00 I & O 07/24/19 07:00 Intake Total 1558 ml Output Total 834 ml Balance 724 ml Height & Weight Height: '" Weight: 173lbs. 0.0oz. 78.230700ct; 22.16 BMI Method: General Appearance: No Apparent Distress, Chronically ill, Other (intubated and sedated) Respiratory: Chest Non Tender, Lungs Clear, Normal Breath Sounds, No Accessory Muscle Use, No Respiratory Distress, Other (intubated and mechanically ventilated) Cardiovascular: Regular Rate, Rhythm, No Gallop, No JVD, Normal Peripheral Pulses Capillary Refill: Less Than 3 Seconds Peripheral Pulses: 2+ Dorsalis Pedis (R), 2+ Left Dors-Pedis (L), 2+ Radial Pulses (R), 2+ Radial Pulses (L) Gastrointestinal: normal bowel sounds, non tender, soft, no organomegaly, no pulsatile mass Extremity: Normal Inspection, Pedal Edema Neurologic/Psychiatric: Other (sedated) Skin: Normal Color, Cool Lymphatic: No Adenopathy Results Lab Laboratory Tests 07/23/19 03:40 07/24/19 03:08 Assessment/Plan Assessment/Plan Acute respiratory failure - continue ventilator Hypotension with decreased U0 and concentrated urine. No pitting edema - On -Hold lasix -Continue IVF NS 125 - CP with NSTEMI -Cardiology consulted Afib RVR -cardiology following -Amiodarone gtt currently Psychosis -Risperadol 1mg BID -Haldol PRN CHF - EF 20-25% -Lasix - Has been held secondary to hypotension Hypotension - improved -Monitor - is no levophed and has a balloon pump Polysubstance abuse Pt has been refusing multiple things. FLOYD LEGGETT DO 07/24/19 0600: Subjective Time Seen by a Provider: 04:30 Subjective/Events-last exam Sedated on vent Exam Exam General Appearance: No Apparent Distress, Chronically ill, Other (intubated and sedated) HEENT: Pharynx Normal Neck: Full Range of Motion, Non Tender, Supple Respiratory: Chest Non Tender, Lungs Clear, Normal Breath Sounds, No Accessory Muscle Use, No Respiratory Distress, Other (intubated and mechanically ventilated) Cardiovascular: Regular Rate, Rhythm, No Gallop, No JVD, Normal Peripheral Pulses Extremity: Normal Inspection, Pedal Edema Skin: Normal Color, Cool Assessment/Plan Assessment/Plan Acute respiratory failure - continue ventilator Cardiogenic shock - Add dopamine and titrate Levophed to D/C -Continue Balloon pump CP with NSTEMI -Cardiology consulted Afib RVR -cardiology following -Amiodarone gtt currently Psychosis -Risperdal 1mg daily -Haldol PRN CHF - EF 20-25% Hypotension - improved -Monitor - is no Levophed and has a balloon pump Polysubstance abuse Overall poor prognosis will continue supportive care at this time. Will consult SW/Hospice to try to reach out to family if possible. Supervisory-Addendum Brief Verification & Attestation Participated in pt care: history Personally performed: exam Care discussed with: Medical Student Procedures: n/a Verification and Attestation of Medical Student E/M Service A medical student performed and documented this service in my presence. I reviewed and verified all information documented by the medical student and made modifications to such information, when appropriate. I personally performed the physical exam and medical decision making. Floyd Leggett, Jul 24, 2019,07:16 ALICIA PUGH,MED STUDENT Jul 24, 2019 04:42 FLOYD LEGGETT DO Jul 24, 2019 06:00
[2019-07-24] MEDS: DEXMEDETOMIDINE INJECTION 1,000 MCG in NS (IVPB) 240 ML IV SCH (04:45)
[2019-07-24] MEDS: NOREPINEPHRINE 8 MG in NS (IVPB) 250 ML IV SCH (04:46)
--- NOTE | 2019-07-24 05:00 | NUR ---
IABP Sutures in place, 40cc Balloon, 8Fr Sheath, Right Groin site C/D/I, Doppler Dorsalis Pedis right, Posterior Tibial bilaterally, Right Radial. Weak/Regular. Trigger: Pattern ECG: II/AUTO Assist: 1:2 HR: 66 SYS: 89 Assisted/98 Unassisted AUDREY: 55 Assisted/66 Unassisted MAP: 94 Assisted/73 Unassisted Au
[2019-07-24] MEDS ORDERED: DOPamine DRIP 250 ML IV SCH (06:00)
--- NOTE | 2019-07-24 06:00 | NUR ---
IABP Sutures in place, 40cc Balloon, 8Fr Sheath, Right Groin site C/D/I, Doppler Dorsalis Pedis right, Posterior Tibial bilaterally, Right Radial. Weak/Regular. Trigger: Pattern ECG: II/AUTO Assist: 1:2 HR: 68 SYS: 92 Assisted/101 Unassisted AUDREY: 57 Assisted/63 Unassisted MAP: 93 Assisted/73 Unassisted Au
[2019-07-24] MEDS ORDERED: SODIUM BICARB 8.4% 50 MEQ/50 ML VIAL IV ONE (06:15)
[2019-07-24] MEDS ORDERED: fentaNYL INJECTION 100 MCG/2 ML AMP IVP PRN (06:15)
--- NOTE | 2019-07-24 07:00 | NUR ---
IABP Sutures in place, 40cc Balloon, 8Fr Sheath, Right Groin site C/D/I, Doppler Dorsalis Pedis right, Posterior Tibial bilaterally, Right Radial. Weak/Regular. Trigger: Pattern ECG: II/AUTO Assist: 1:2 HR: 89 SYS: 108 Assisted/109 Unassisted AUDREY: 55 Assisted/58 Unassisted MAP: 89 Assisted/77 Unassisted Au
[2019-07-24] MEDS: meTOprolol TARTRATE 25 MG (LOPRESSOR) TABLET PO SCH ×2 (07:52→11:59)
[2019-07-24] MEDS: APIXABAN 5 MG (ELIQUIS) TABLET PO SCH (07:52)
--- NOTE | 2019-07-24 08:00 | NUR ---
IABP Sutures in place, 40cc Balloon, 8Fr Sheath, Right Groin site C/D/I, Doppler Dorsalis Pedis right, Posterior Tibial bilaterally, Right Radial. Weak/Regular. Trigger: Pattern ECG: II/AUTO Assist: 1:2 HR: 89 SYS: 102 Assisted/107 Unassisted AUDREY: 54 Assisted/57 Unassisted MAP: 87 Assisted/74 Unassisted Au
--- NOTE | 2019-07-24 08:30 | Occ Therapy Progress Note ---
Therapy Progress Note Pt. on ventilator support. Continue to monitor pt. [id number] CURTIS NEGRON OT Jul 24, 2019 08:30
--- NOTE | 2019-07-24 08:50 | Diagnostic Imaging Report ---
INDICATION: Ventilator support. TIME OF EXAM: 03:32 a.m. COMPARISON: Correlation is with chest one day earlier. FINDINGS: Endotracheal tube has the tip well above the radha, at the level of the clavicular heads. NG tube passes below the diaphragm. Tip is not included on this radiograph. Left IJ line has the tip overlying the upper SVC. The heart remains enlarged. The aortic catheter has been placed and has its tip near the junction of the arch and descending thoracic aorta. Generalized increased density to the right lung persists consistent with infiltrate or atelectasis. There is continued consolidation in the left base obscuring the left hemidiaphragm. Left mid and upper lung field is clear. There is no pneumothorax. IMPRESSION: Overall similar appearance to the chest when compared with prior examination one day earlier. There may be slightly more infiltrate in the right lung when compared with yesterday. Dictated by: Dictated on workstation # [id number]
[2019-07-24] MEDS ORDERED: risperiDONE 1 MG (RisperDAL) TAB PO SCH (09:00)
--- NOTE | 2019-07-24 09:00 | NUR ---
IABP Sutures in place, 40cc Balloon, 8Fr Sheath, Right Groin site C/D/I, Doppler Dorsalis Pedis right, Posterior Tibial bilaterally, Right Radial. Weak/Regular. Trigger: Pattern ECG: II/AUTO Assist: 1:2 HR: 89 SYS: 98 Assisted/99 Unassisted AUDERY: 57 Assisted/60 Unassisted MAP: 86 Assisted/75 Unassisted Au
--- NOTE | 2019-07-24 09:05 | Physical Therapy Progress Note ---
Therapy Progress Note Patient on mechanical ventilation, will continue to monitor. SHANNAN CARIAS PT Jul 24, 2019 09:05
--- NOTE | 2019-07-24 09:50 | NUR ---
Mother Lyndsay called to talk about what was going on with her son. Mom gave verbal consent for Ori to be a DNR until family can reach the hospital. At that time the will most likely pursue comfort care. DNR status was confirmed by phone with a second nurse Lata OLSEN.
--- NOTE | 2019-07-24 10:00 | NUR ---
IABP Sutures in place, 40cc Balloon, 8Fr Sheath, Right Groin site C/D/I, Doppler Dorsalis Pedis right, Posterior Tibial bilaterally, Right Radial. Weak/Regular. Trigger: Pattern ECG: II/AUTO Assist: 1:2 HR: 89 SYS: 85 Assisted/95 Unassisted AUDREY: 49 Assisted/54 Unassisted MAP: 77 Assisted/65 Unassisted Au
--- NOTE | 2019-07-24 10:00 | NUR ---
Dr Randle at bedside and states that pt may be a candidate for [facility] for Lvad. This option will be given to family on arrival for them to decide if they wish to pursue further treatment.
--- NOTE | 2019-07-24 10:25 | NUR ---
Offered soothing touch, spoke supportive and comforting words to the pt and offered prayer. The pt became restless due to secretions; RNs present to immediately assist. I communicated reassuring and empathic words while RNs tended to pt's physical needs.
--- NOTE | 2019-07-24 11:00 | NUR ---
IABP Sutures in place, 40cc Balloon, 8Fr Sheath, Right Groin site C/D/I, Doppler Dorsalis Pedis right, Posterior Tibial bilaterally, Right Radial. Weak/Regular. Trigger: Pattern ECG: II/AUTO Assist: 1:2 HR: 89 SYS: 87 Assisted/87 Unassisted AUDREY: 47 Assisted/50 Unassisted MAP: 75 Assisted/64 Unassisted Au
--- NOTE | 2019-07-24 11:30 | NUR ---
CM/SS responded to SS consult. Amy has had contact with patient's Mom and Sister, they made DNR this am and will be by this day to discuss plan of care. Will continue to follow along.
--- NOTE | 2019-07-24 11:30 | NUR ---
Casing Worker presence requested: daughter, Shantal at bedside and tearful. She has a five year old and is expecting her second child in August. 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 I offered active listening, non-judgmental presence, and support for anticipatory grief. Shantal said she would like to have prayer before the pt before extubation. The pt's parents are expected to arrive within the hour from [place], after which time pt will be extubated.
[2019-07-24] MEDS ORDERED: LORazepam INJ 2 MG/ML (ATIVAN) VIAL IVP PRN (12:00)
[2019-07-24] MEDS: LORazepam INJ 2 MG/ML (ATIVAN) VIAL IVP PRN ×2 (12:23→13:39)
[2019-07-24] MEDS: morphine INJ 4 MG/ML 1 ML (VIAL/SYRINGE) IVP PRN ×4 (12:24→14:30)
--- NOTE | 2019-07-24 12:27 | NUR ---
Both parents and pt's daughter in room at bedside. this nurse offered the option to try to ship pt and try lavd. All family members are in agreement that this is something they do not want to do. At this time they have decided to make pt comfort care and remove all invasive devices. This nurse has given them time at bedside and they will notify staff when they are ready to remove balloon pump and vent.
--- NOTE | 2019-07-24 13:00 | NUR ---
Received message that pt's parents arrived and were ready to pray together before extubation. Met with family, encouraged sharing of stories and expression of feelings. The pt was adopted at 18 months old after being in the foster care system. His parents did not think they could have children, but later had two. The pt is estranged from his adoptive siblings, and his daughter Shantal only recently discovered through FB that the pt has biological brothers and sisters, one of whom lives in [place]. The family shared feelings of guilt at wishing they could have done more to help the pt. I offered compassionate presence, active listening, and prayer.
--- NOTE | 2019-07-24 13:51 | NUR ---
1300 2mg Ativan and 4 mg morphine given for comfort and restraints removed. family at bedside with pastoral care for prayer. balloon pump placed in standby and all pressures discontinued. 1303 pt extubated by this nurse to room air. 1308 Dr llanos at bedside with verbal orders to give 4 more of morphine and 2 more Ativan to help with air hunger. pt is resting quietly with eyes closed. Alicia from pathology laboratory aide here to remove balloon pump and sheath. Site held by Alicia for the allotted time and then sand bag placed on groin. pt bp is 50's systolic and heart rate is in 70 with respirations in the 40's however pt shows no s/s of discomfort at this time.
--- NOTE | 2019-07-24 14:06 | NUR ---
PALLIATIVE CARE RN received Hospice consult for this patient with poor prognosis who is ventilated and has a balloon pump. Spoke with RN who reported that she had talked family and informed me that I was not needed for this purpose. Spoke with Lapping Machine Set Up Operator who has also spoken with family. Plan is for transitioning to [facility]. They will call if I am needed in any way.
[2019-07-24] MEDS ORDERED: GLYCOPYRROLATE 0.2 MG/ML (ROBINUL) 2 ML VIAL IV PRN (15:45)
[2019-07-24] MEDS ORDERED: BISACODYL 10 MG SUPP (DULCOLAX) PR PRN (15:45)
[2019-07-24] MEDS ORDERED: ONDANSETRON 4 MG/2 ML (SDV) Z0FRAN IVP PRN (15:45)
[2019-07-24] MEDS ORDERED: PROMETHAZINE INJ 25 MG/ML (PHENERGAN) AMP IVP PRN (15:45)
[2019-07-24] MEDS ORDERED: SALIVA STIMULANT MOUTH SPRAY (BIOTENE) 1.5 OZ MM PRN (15:45)
[2019-07-24] MEDS ORDERED: ACETAMINOPHEN 650 MG SUPP (TYLENOL) PR PRN (15:45)
[2019-07-24] MEDS ORDERED: ARTIFICAL TEARS 0.4 ML UNIT DOSE (REFRESH PLUS) OU PRN (15:45)
[2019-07-24] MEDS ORDERED: ATROPINE 1% OPHTHALMIC SOLN 2 ML SL PRN (15:45)
--- NOTE | 2019-07-24 16:35 | Cardiology Progress Note ---
Cardiology SOAP Progress Note Subjective: Intubated/ventilated. Objective: I&O/Vital Signs 07/24/19 07/24/19 07/24/19 07/24/19 05:00 05:00 06:00 06:01 Pulse 66 66 67 67 Resp 30 26 B/P (MAP) 123/61 (81) 119/67 (84) 118/67 (84) 117/66 (83) Pulse Ox 97 97 O2 Delivery Mechanical Ventilator Mechanical Ventilator O2 Flow Rate 30.00 30.00 07/24/19 07/24/19 07/24/19 07/24/19 06:16 06:26 06:39 06:48 Pulse 67 71 Resp 28 38 B/P (MAP) 120/67 94/52 (66) Pulse Ox 97 90 O2 Delivery Mechanical Ventilator Mechanical Ventilator O2 Flow Rate 21.00 21.00 FiO2 30 07/24/19 07/24/19 07/24/19 07/24/19 06:48 07:00 07:00 07:00 Pulse 89 89 89 Resp 24 B/P (MAP) 128/64 (85) 125/58 (80) Pulse Ox 91 O2 Delivery Mechanical Ventilator Mechanical Ventilator O2 Flow Rate 30.00 40.00 07/24/19 07/24/19 07/24/19 07/24/19 08:00 08:00 08:00 08:13 Temp 37.0 Pulse 89 89 89 Resp 21 37 B/P (MAP) 120/56 (77) 120/56 (77) 117/56 Pulse Ox 92 92 91 O2 Delivery Mechanical Ventilator Mechanical Ventilator Mechanical Ventilator O2 Flow Rate 40.00 40.00 FiO2 40 07/24/19 07/24/19 07/24/19 07/24/19 09:00 09:00 10:00 10:00 Pulse 84 84 81 84 Resp 30 31 B/P (MAP) 128/67 (87) 128/67 (87) 104/57 (73) 104/57 (73) Pulse Ox 91 93 O2 Delivery Mechanical Ventilator Mechanical Ventilator O2 Flow Rate 40.00 40.00 07/24/19 07/24/19 07/24/19 07/24/19 10:35 11:00 11:00 12:00 Temp 37.0 Pulse 80 80 80 Resp 39 37 B/P (MAP) 102/55 (71) 102/55 (71) Pulse Ox 92 93 95 O2 Delivery Mechanical Ventilator Mechanical Ventilator O2 Flow Rate 40.00 FiO2 40 40 07/24/19 07/24/19 07/24/19 12:00 12:00 13:00 Temp 37.0 Pulse 78 78 78 Resp 35 B/P (MAP) 99/53 (68) 99/53 (68) Pulse Ox 95 O2 Delivery Mechanical Ventilator O2 Flow Rate 40.00 07/24/19 00:00 Intake Total 1258 ml Output Total 538 ml Balance 720 ml Weight (Pounds): 192 Weight (Ounces): 4.0 Weight (Calculated Kilograms): 87.332662 Constitutional: appears stated age; No apparent distress; well-developed, well- nourished, other (intubated/ventilated) Respiratory: other (intubated/ventilated.) Cardiovascular: regular rate-rhythm, tachycardia, S1 and S2 Gastrointestional: soft, round, audible bowel sounds; No spleenomegaly Extremities: normal range of motion, non-tender, normal inspection; No clubbing, No cyanosis; no lower extremity edema bilateral; No significant edema Neurologic/Psychiatric: other (intubated/ventilated) Skin: cool; No rash, No ulcerations Results/Procedures: Labs Laboratory Tests 07/23/19 18:00: Glucometer 210H 07/24/19 00:04: Glucometer 180H 07/24/19 03:08: White Blood Count 10.6, Red Blood Count 4.68, Hemoglobin 14.7, Hematocrit 43, Mean Corpuscular Volume 93, Mean Corpuscular Hemoglobin 31, Mean Corpuscular Hemoglobin Concent 34, Red Cell Distribution Width 12.9, Platelet Count 244, Mean Platelet Volume 10.6H, Neutrophils (%) (Auto) 64, Lymphocytes (%) (Auto) 23, Monocytes (%) (Auto) 13H, Eosinophils (%) (Auto) 0, Basophils (%) (Auto) 0, Neutrophils # (Auto) 6.8, Lymphocytes # (Auto) 2.4, Monocytes # (Auto) 1.4H, Eosinophils # (Auto) 0.0, Basophils # (Auto) 0.0, Blood Gas Puncture Site LEFT RADIAL ARTLINE, Blood Gas Patient Temperature 36.8, Arterial Blood pH 7.35L, Arterial Blood Partial Pressure CO2 29L, Arterial Blood Partial Pressure O2 86, Arterial Blood HCO3 16*L, Arterial Blood Total CO2 16.4L, Arterial Blood Oxygen Saturation 96, Arterial Blood Base Excess -8.9L, Christ Test ARTLINE, Blood Gas Ventilator Setting YES, Blood Gas Inspired Oxygen 30%, Sodium Level 130L, Potassium Level 4.5, Chloride Level 105, Carbon Dioxide Level 16L, Anion Gap 9, Blood Urea Nitrogen 35H, Creatinine 1.26, Estimat Glomerular Filtration Rate > 60, BUN/Creatinine Ratio 28, Glucose Level 125H, Calcium Level 7.8L, Phosphorus Level 5.0H, Magnesium Level 2.0 07/24/19 11:37: Glucometer 174H Microbiology 07/23/19 Blood Culture - Preliminary, Resulted No growth 07/23/19 Gram Stain - Final, Resulted 07/23/19 Sputum Culture - Preliminary, Resulted Usual Mixed Danica Haemophilus influenza 07/23/19 Urine Culture - Final, Complete NO GROWTH A/P: Assessment/Dx: Cardiogenic shock Atrial tachycardia with 2-1 AV block, status post cardioversion yesterday. Dilated cardiomyopathy, History of congenital heart disease, hypotension, drug abuse Plan: Cardiogenic shock, intra-aortic balloon pump placed 07/23/2019. Augmented blood pressure 95 mmHg. Also on non-epinephrine infusion. If cardiogenic shock is refractory to intra-aortic balloon pump and non-epinephrine, the only other option is LVAD but then patient will have to be transferred to . Also the patient is not a candidate for transplant due to drug abuse. Atrial tachycardia with 2-1 AV block, Eliquis. Metoprolol. Transesophageal assisted cardioversion done on 07/22/2019. History of congenital heart disease, need to get old records. Echocardiogram showed poor LV systolic function. hypotension, drug abuse, defer to primary team. poor prognosis. Thank you for your consultation. Please call me if you have any questions. Star Randle MD, FACP, FACC, FSCAI, FHRS, CCDS Interventional Cardiology Cardiac Electrophysiology Vascular Medicine and Endovascular Interventions Focused Exam Lactate Level 07/23/19 08:30: Lactic Acid Level 0.85 Clinical Quality Measures Type of Care: Type of Care: Comfort Measures AMI/AHF: ASA po Prior to arrival: Yes Mendoza RANDLE MD Jul 24, 2019 16:35
--- NOTE | 2019-07-24 17:26 | Progress Note - Hospitalist ---
Subjective HPI/CC On Admission Date Seen by Provider: Jul 24, 2019 Time Seen by Provider: 08:15 chest pain Subjective/Events-last exam He remains intubated and sedated. Focused Exam Lactate Level 07/23/19 08:30: Lactic Acid Level 0.85 Objective Exam Vital Signs Vital Signs Date Time Temp Pulse Resp B/P (MAP) Pulse Ox O2 Delivery O2 Flow Rate FiO2 07/24/19 13:00 78 07/24/19 12:00 99/53 (68) 07/24/19 12:00 37.0 35 95 Mechanical Ventilator 40.00 07/24/19 12:00 40 Capillary Refill : Less Than 3 Seconds General Appearance: No Apparent Distress, Other (intubated and sedated) Respiratory: Lungs Clear, Normal Breath Sounds, No Respiratory Distress Cardiovascular: Regular Rate, Rhythm, No Edema, No Murmur Gastrointestinal: Normal Bowel Sounds, Non Tender, Soft Extremity: Normal Inspection, Non Tender, No Pedal Edema Neurologic/Psychiatric: Other (sedated) Skin: Cool, Other (dry) Results/Procedures Lab Laboratory Tests 07/24/19 03:08 Patient resulted labs reviewed. Assessment/Plan Assessment and Plan Assess & Plan/Chief Complaint Cardiogenic shock Atrial fibrillation Heart failure with reduced ejection fraction NSTEMI Congenital heart disease Goals of care discussion Comfort measures only status -Developed hypotension yesterday afternoon -Started on norepinephrine, intubated -Intra-aortic balloon pump placed yesterday by cardiology -Transition to dopamine this morning -Prognosis very poor -Hospice consult placed -Family transitioned patient to comfort measures only status Critical Care Critically Ill Patient Diagnosis/Problems Diagnosis/Problems (1) Shock Status: Acute (2) NSTEMI (non-ST elevated myocardial infarction) Status: Acute (3) Atrial fibrillation Status: Acute (4) Heart failure with reduced ejection fraction Status: Acute (5) Polysubstance abuse Status: Chronic Clinical Quality Measures AMI/AHF: ASA po Prior to arrival: Yes DVT/VTE Risk/Contraindication: Risk Factor Score Per Nursin RFS Level Per Nursing on Admit: 3=VIELKA Katz MD Jul 24, 2019 17:26
--- NOTE | 2019-07-24 19:30 | NUR ---
Patient on comfort care. Bedside report with Juli OLSEN. Parents of the patient were at the bedside at this time. Family stated that they are going home for the night, did update this RN with home of choice. Will call for updates. Patient resting with eyes closed. No s/s of distress. No s/s of pain. Bed in low locked position. Side rails up x 4.
[2019-07-24] MEDS: SCOPOLAMINE 1.5 MG (TRANSDERM-SCOP) PATCH TOP SCH (19:44)
--- NOTE | 2019-07-25 00:20 | NUR ---
Pt resting with eyes closed, no complaints at this time. Unlabored respirations noted. No s/s of distress at this time. No s/s of pain. Will continue to monitor for any updates and report any changes to family.
[2019-07-25] MEDS: morphine INJ 4 MG/ML 1 ML (VIAL/SYRINGE) IVP PRN ×3 (00:34→16:01)
[2019-07-25] MEDS: LORazepam INJ 2 MG/ML (ATIVAN) VIAL IVP PRN ×3 (05:45→23:26)
--- NOTE | 2019-07-25 05:49 | NUR ---
Patient monitored through out the night, comfort medication given accordingly. Patient does not appear to be in any distress. Urine output 480cc for 12 hour shift. Patient on room air. Current VS; 96 hr, 36 rr, 80/40 bp per art line, 77% spo2, Patient oral care done this night, biotene prn.
--- NOTE | 2019-07-25 11:31 | Occ Therapy Progress Note ---
Therapy Progress Note Nursing states cancellation of orders due to pt's present condition of comfort care. Pt to d/c skilled OT services. BHAVANI RAY OTR Jul 25, 2019 11:31
--- NOTE | 2019-07-25 12:40 | NUR ---
Follow up visit with pt's mother and father. I provided them both with coffee and offered empathic listening. Both shared feelings of anticipatory grief and emotional fatigue. They said they expected their son would within an hour of extubation. Positive coping demonstrated. The family expresses deep appreciation for emotional support.
--- NOTE | 2019-07-25 14:19 | Cardiology Progress Note ---
Cardiology SOAP Progress Note Subjective: family decided to pursue comfort care. Objective: I&O/Vital Signs 07/25/19 00:00 Intake Total 1370 ml Output Total 250 ml Balance 1120 ml Weight (Pounds): 192 Weight (Ounces): 4.0 Weight (Calculated Kilograms): 87.871336 Constitutional: appears stated age; No apparent distress; well-developed, well-nourished Respiratory: chest is bilaterally symmetric, lungs clear to auscultation Cardiovascular: regular rate-rhythm, tachycardia, S1 and S2 Gastrointestional: soft, round, audible bowel sounds; No spleenomegaly Extremities: normal range of motion, non-tender, normal inspection; No clubbing, No cyanosis; no lower extremity edema bilateral; No significant edema Skin: cool; No rash, No ulcerations Results/Procedures: Labs Microbiology 07/23/19 Blood Culture - Preliminary, Resulted No growth 07/23/19 Gram Stain - Final, Complete 07/23/19 Sputum Culture - Final, Complete Usual Mixed Danica Haemophilus influenza 07/23/19 Urine Culture - Final, Complete NO GROWTH A/P: Assessment/Dx: Cardiogenic shock Atrial tachycardia with 2-1 AV block, status post cardioversion yesterday. Dilated cardiomyopathy, History of congenital heart disease, hypotension, drug abuse Plan: Cardiogenic shock, intra-aortic balloon pump placed 07/23/2019. Augmented blood pressure 95 mmHg. Also on non-epinephrine infusion. If cardiogenic shock is refractory to intra-aortic balloon pump and non-epinephrine, the only other option is LVAD but then patient will have to be transferred to . Also the patient is not a candidate for transplant due to drug abuse. however the patient decided to pursue comfort care on 07/24/2019 therefore the patient was extubated and intra-aortic balloon pump was taken out. This morning patient is maintaining systolic blood pressure of 90 mmHg. Oxygen saturation is okay. Atrial tachycardia with 2-1 AV block, Eliquis. Metoprolol. Transesophageal assisted cardioversion done on 07/22/2019. History of congenital heart disease, Echocardiogram showed poor LV systolic function. hypotension, drug abuse, defer to primary team. defer to the primary team for palliative care. poor prognosis. Thank you for your consultation. Please call me if you have any questions. Star Randle MD, FACP, FACC, FSCAI, FHRS, CCDS Interventional Cardiology Cardiac Electrophysiology Vascular Medicine and Endovascular Interventions Focused Exam Lactate Level 07/23/19 08:30: Lactic Acid Level 0.85 Clinical Quality Measures Type of Care: Type of Care: Comfort Measures AMI/AHF: ASA po Prior to arrival: Yes Mendoza RANDLE MD Jul 25, 2019 14:19
--- NOTE | 2019-07-25 14:22 | NUR ---
PALLIATIVE CARE RN in to see patient. He is laying in bed resting. Monitor showing good vitals. Mother and father in room and had a quick discussion with them regarding discharge planning. Began the discussion about DISCHARGE to possible [facility] or home with Hospice assistance. Family is not resistant to this, so will visit it again tomorrow. Will continue to assist and offer assistance as needed.Patient is not fully responsive, did lift his head and moan. Shook head yes to pain question.
--- NOTE | 2019-07-25 14:29 | Progress Note - Hospitalist ---
Subjective HPI/CC On Admission Date Seen by Provider: Jul 25, 2019 Time Seen by Provider: 08:00 chest pain Subjective/Events-last exam He is awake but lethargic. He does not express any pain. Focused Exam Lactate Level 07/23/19 08:30: Lactic Acid Level 0.85 Objective Exam Vital Signs Vital Signs Date Time Temp Pulse Resp B/P (MAP) Pulse Ox O2 Delivery O2 Flow Rate FiO2 07/24/19 13:00 78 07/24/19 12:00 99/53 (68) 07/24/19 12:00 37.0 35 95 Mechanical Ventilator 40.00 07/24/19 12:00 40 Capillary Refill : Less Than 3 Seconds General Appearance: No Apparent Distress, Other (lethargic) Respiratory: Lungs Clear, Normal Breath Sounds Cardiovascular: No Edema, Irregularly Irregular Gastrointestinal: Non Tender, Soft Neurologic/Psychiatric: Disoriented, Other (lethargic) Results/Procedures Lab Patient resulted labs reviewed. Assessment/Plan Assessment and Plan Assess & Plan/Chief Complaint Cardiogenic shock Atrial fibrillation Heart failure with reduced ejection fraction NSTEMI Congenital heart disease Goals of care discussion Comfort measures only status -Comfort measures order set in place -Continue to monitor and treat symptoms accordingly -Hospice consult placed with possible need for hospice facility placement Critical Care Critically Ill Patient Diagnosis/Problems Diagnosis/Problems (1) Shock Status: Acute (2) NSTEMI (non-ST elevated myocardial infarction) Status: Acute (3) Atrial fibrillation Status: Acute (4) Heart failure with reduced ejection fraction Status: Acute (5) Polysubstance abuse Status: Chronic Clinical Quality Measures AMI/AHF: ASA po Prior to arrival: Yes DVT/VTE Risk/Contraindication: Risk Factor Score Per Nursin RFS Level Per Nursing on Admit: 3=High VIELKA NEWMAN MD Jul 25, 2019 14:28
--- NOTE | 2019-07-25 19:15 | NUR ---
Bedside report with RAÚL Spencer. Pt on comfort care, pt drowsy but responds to verbal stimuli. Nods head appropriately, denies pain at this time. Will continue to monitor.
--- NOTE | 2019-07-25 20:20 | NUR ---
ENTERED PT'S ROOM TO CHECK ON PT. PT RESTING IN BED. PT STATED HE IS NOT IN ANY PAIN AND DOES NOT NEED ANYTHING AT THIS TIME. WILL CONTINUE TO MONITOR.
--- NOTE | 2019-07-25 22:00 | NUR ---
PT HAS NOT EATEN OR DRANK ANYTHING, URINE OUTPUT 350ML.
--- NOTE | 2019-07-25 22:30 | NUR ---
ENTERED PT'S ROOM TO CHECK ON PT. PT ASLEEP IN BED.
--- NOTE | 2019-07-25 23:30 | NUR ---
PT MAKING FREQUENT POSITION CHANGES. 2MG ATIVAN IV ADMINISTERED.
--- NOTE | 2019-07-26 01:00 | NUR ---
PT CONTINUING TO MAKE FREQUENT POSITION CHANGES. PT TALKING TO SELF INCOHERENTLY, O2 SATURATION 87%.
[2019-07-26] MEDS: LORazepam INJ 2 MG/ML (ATIVAN) VIAL IVP PRN ×5 (02:44→21:51)
--- NOTE | 2019-07-26 02:44 | NUR ---
PT MOANING AND MAKING FREQUENT POSITION CHANGES/MOVEMENTS. PT DENIED PAIN. 2MG ATIVAN IV ADMINISTERED. O2 SATURATION 84%, HR 96, BP 126/61, RR 30 WITH SHALLOW BREATHS. WILL CONTINUE TO MONITOR.
[2019-07-26] MEDS: morphine INJ 4 MG/ML 1 ML (VIAL/SYRINGE) IVP PRN ×4 (03:02→21:57)
--- NOTE | 2019-07-26 03:02 | NUR ---
PT RR 32, 4MG MORPHINE IV ADMINISTERED, WILL CONTINUE TO MONITOR.
[2019-07-26] MEDS: HALOPERIDOL 5 MG/ML (HALDOL) AMP IV PRN (04:14)
--- NOTE | 2019-07-26 04:15 | NUR ---
PT MOANING AND SEEMING VERY AGITATED. 5MG HALDOL IV ADMINISTERED OVER 5 MINUTES. O2 SATURATING 86%, HR 94, BP 127/66, RR 24. WILL CONTINUE TO MONITOR. Addendum: 07/26/19 at 0422 by PAMELA BARRIENTOS RN AMENDMENT: STARKS CATHETER DRAINED - 425ML URINE OUTPUT.
--- NOTE | 2019-07-26 09:26 | NUR ---
0920 PT TO ROOM 428 VIA BED ACCOMPANIED BY THIS RN AND Audelia RACHEL RN. REPORT GIVEN PRIOR TO TRANSFER TO Benoit PAREKH RN. DAUGHTER CALLED EARLIER AND MADE AWARE OF PT'S TRANSFER.
--- NOTE | 2019-07-26 09:30 | NUR ---
TRANSFERRED FROM ICU TO ROOM 428 PER BED.
--- NOTE | 2019-07-26 15:09 | NUR ---
PALLIATIVE CARE RN called and talked to patient's mother. We discussed discharge with hospice. She has asked for referral to be sent to [facility] and have done this. Await their decision. I will send referral to [facility] once placement is secured.
--- NOTE | 2019-07-26 15:42 | Progress Note - Hospitalist ---
Subjective HPI/CC On Admission Date Seen by Provider: Jul 26, 2019 Time Seen by Provider: 08:15 chest pain Subjective/Events-last exam He is lethargic but able to follow simple commands. His speech is incomprehensible at times. He denies pain. He appears comfortable. Objective Exam Vital Signs Vital Signs Date Time Temp Pulse Resp B/P (MAP) Pulse Ox O2 Delivery O2 Flow Rate FiO2 07/26/19 08:46 92 Room Air 07/24/19 13:00 78 07/24/19 12:00 99/53 (68) 07/24/19 12:00 37.0 35 40.00 07/24/19 12:00 40 Capillary Refill : Less Than 3 Seconds General Appearance: No Apparent Distress, WD/WN, Chronically ill Respiratory: No Accessory Muscle Use, No Respiratory Distress Cardiovascular: No Edema Gastrointestinal: Soft; No Distended Extremity: Normal Inspection, No Pedal Edema Skin: Normal Color, Warm/Dry Results/Procedures Lab Patient resulted labs reviewed. Assessment/Plan Assessment and Plan Assess & Plan/Chief Complaint Cardiogenic shock Atrial fibrillation Heart failure with reduced ejection fraction NSTEMI Congenital heart disease Goals of care discussion Comfort measures only status -Comfort measures order set in place -Continue to monitor and treat symptoms accordingly -[facility]osp[facility] referral sent to [facility], awaiting acceptance Critical Care Critically Ill Patient Diagnosis/Problems Diagnosis/Problems (1) Shock Status: Acute (2) NSTEMI (non-ST elevated myocardial infarction) Status: Acute (3) Atrial fibrillation Status: Acute (4) Heart failure with reduced ejection fraction Status: Acute (5) Polysubstance abuse Status: Chronic Clinical Quality Measures End of Life/Advance Care Plan: Advance Care discuss with: family member (s) End of Life Care: Comfort Measures Plan: developed treatment plan AMI/AHF: ASA po Prior to arrival: Yes DVT/VTE Risk/Contraindication: Risk Factor Score Per Nursin RFS Level Per Nursing on Admit: 3=High VIELKA NEWMAN MD Jul 26, 2019 15:42
[2019-07-27] MEDS: LORazepam INJ 2 MG/ML (ATIVAN) VIAL IVP PRN ×3 (01:46→13:03)
[2019-07-27] MEDS: morphine INJ 4 MG/ML 1 ML (VIAL/SYRINGE) IVP PRN ×5 (05:00→20:42)
--- NOTE | 2019-07-27 11:28 | Progress Note - Hospitalist ---
Subjective HPI/CC On Admission Date Seen by Provider: Jul 27, 2019 Time Seen by Provider: 10:15 chest pain Subjective/Events-last exam He does not express any pain. He reports feeling hungry and thirsty. Objective Exam Vital Signs Vital Signs Date Time Temp Pulse Resp B/P (MAP) Pulse Ox O2 Delivery O2 Flow Rate FiO2 07/27/19 09:00 Room Air 07/26/19 08:46 92 07/24/19 13:00 78 07/24/19 12:00 99/53 (68) 07/24/19 12:00 37.0 35 40.00 07/24/19 12:00 40 Capillary Refill : Less Than 3 Seconds General Appearance: No Apparent Distress, Chronically ill HEENT: Other (Oropharynx dry) Respiratory: Lungs Clear, Normal Breath Sounds, No Respiratory Distress Cardiovascular: No Edema Gastrointestinal: Normal Bowel Sounds, Non Tender, Soft Extremity: Normal Inspection, Non Tender, No Pedal Edema Neurologic/Psychiatric: Disoriented, Other (Lethargic) Skin: Normal Color, Cool Results/Procedures Lab Patient resulted labs reviewed. Assessment/Plan Assessment and Plan Assess & Plan/Chief Complaint Cardiogenic shock Atrial fibrillation Heart failure with reduced ejection fraction NSTEMI Congenital heart disease Goals of care discussion Comfort measures only status -Comfort measures order set in place -Continue to monitor and treat symptoms accordingly -Hospice referral sent to [facility], awaiting acceptance Critical Care Critically Ill Patient Diagnosis/Problems Diagnosis/Problems (1) Shock Status: Acute (2) NSTEMI (non-ST elevated myocardial infarction) Status: Acute (3) Atrial fibrillation Status: Acute (4) Heart failure with reduced ejection fraction Status: Acute (5) Polysubstance abuse Status: Chronic Clinical Quality Measures AMI/AHF: ASA po Prior to arrival: Yes DVT/VTE Risk/Contraindication: Risk Factor Score Per Nursin RFS Level Per Nursing on Admit: 3=High VIELKA NEWMAN MD Jul 27, 2019 11:28
[2019-07-27] MEDS: SCOPOLAMINE PATCH REMOVAL TP SCH (15:13)
[2019-07-27] MEDS: SCOPOLAMINE 1.5 MG (TRANSDERM-SCOP) PATCH TOP SCH (15:14)
[2019-07-28] MEDS: morphine INJ 4 MG/ML 1 ML (VIAL/SYRINGE) IVP PRN ×5 (00:20→21:01)
[2019-07-28] MEDS: LORazepam INJ 2 MG/ML (ATIVAN) VIAL IVP PRN ×5 (01:19→23:49)
--- NOTE | 2019-07-28 12:14 | Progress Note - Hospitalist ---
Subjective HPI/CC On Admission Date Seen by Provider: Jul 28, 2019 Time Seen by Provider: 09:20 chest pain Subjective/Events-last exam He denies any pain. He appears comfortable. He has no requests this time. Objective Exam Vital Signs Vital Signs Date Time Temp Pulse Resp B/P (MAP) Pulse Ox O2 Delivery O2 Flow Rate FiO2 07/27/19 21:00 Room Air 07/26/19 08:46 92 07/24/19 13:00 78 07/24/19 12:00 99/53 (68) 07/24/19 12:00 37.0 35 40.00 07/24/19 12:00 40 Capillary Refill : Less Than 3 Seconds General Appearance: No Apparent Distress, WD/WN Respiratory: Lungs Clear, Normal Breath Sounds, No Respiratory Distress Cardiovascular: Regular Rate, Rhythm, No Edema, No Murmur Gastrointestinal: Normal Bowel Sounds, Non Tender, Soft Extremity: Normal Inspection, Non Tender, No Pedal Edema Neurologic/Psychiatric: Alert, Disoriented Results/Procedures Lab Patient resulted labs reviewed. Assessment/Plan Assessment and Plan Assess & Plan/Chief Complaint Cardiogenic shock Atrial fibrillation Heart failure with reduced ejection fraction NSTEMI Congenital heart disease Goals of care discussion Comfort measures only status -Comfort measures order set in place -Continue to monitor and treat symptoms accordingly -Hospice referral sent to [facility], awaiting acceptance Diagnosis/Problems Diagnosis/Problems (1) Shock Status: Acute (2) NSTEMI (non-ST elevated myocardial infarction) Status: Acute (3) Atrial fibrillation Status: Acute (4) Heart failure with reduced ejection fraction Status: Acute (5) Polysubstance abuse Status: Chronic Clinical Quality Measures AMI/AHF: ASA po Prior to arrival: Yes DVT/VTE Risk/Contraindication: Risk Factor Score Per Nursin RFS Level Per Nursing on Admit: 3=High VIELKA NEWMAN MD Jul 28, 2019 12:13
[2019-07-29] MEDS: morphine INJ 4 MG/ML 1 ML (VIAL/SYRINGE) IVP PRN ×3 (00:14→14:44)
[2019-07-29] MEDS: HALOPERIDOL 5 MG/ML (HALDOL) AMP IV PRN (02:41)
[2019-07-29] MEDS: LORazepam INJ 2 MG/ML (ATIVAN) VIAL IVP PRN ×2 (06:14→12:07)
[2019-07-29] MEDS ORDERED: GABAPENTIN 100 MG (NEURONTIN) CAP PO NR (09:45)
--- NOTE | 2019-07-29 10:53 | NUR ---
DISCHARGE PLANNING/PALLIATIVE CARE: [facility] denied this admission on the grounds of "not being able to meet his needs". I have sent a referral to [facility] as requested by the mother on an after work hours phone call on Monday the .
--- NOTE | 2019-07-29 14:20 | ST Dysphagia Evaluation ---
Speech Evaluation-General Medical Diagnosis Acutely Decompensated Heart Failure Onset Date: Jul 29, 2019 Therapy Diagnosis Therapy Diagnosis: Oropharyngeal Dysphagia Precautions Precautions: Aspiration Precautions/Isolations: Fall Prevention, Standard Precautions Referral Referring Physician: Dr. Campa Reason for Referral: Evaluation/Treatment Medical History Pertinent Medical History: Heart Failure Heart Failure Current History Acute decompensated heart failure Reviewed History: Yes Social History Home: Current Living Status: Homeless Speech PLF/Current-Dysphagia Prior Level of Function Patient was vague with the physician as to his living situation. Patient plans are unknown at this time. Subjective The patient was able to participate with the BDE. Nursing states he is on comfort care. Cognitive Status Patient Orientation: Confused, Unable to Assess Oral Motor Skills Dentition: Edentalous Current Food Consistancy: Dysphagia Soft, [place] Liquids Ability to Follow Directions: Fair Oral Expression Ability: Moderate Impairment Voice Voice Phonatory-Based Quality: Weak Voice Pitch: Normal Voice Loudness: Severely Soft/Quiet Face Facial Symmetry: Symmetrical Oral-Facial Assessment Oral-Facial Dentition: Normal Labial Seal Description: Reduced ROM, Weak Smile: Reduced ROM, Poor Coordination Puff Cheeks: Reduced Strength Unable to follow through Lingual Protrusion: Abnormal Lingual ROM: Abnormal Lingual Strength: Abnormal Pharynx Velopharyngeal Move.: Normal Volitional Dry Swallow: Yes Voluntary Cough: No Can Clear Throat Volitionally: No Productive Cough: Yes Dysphagia Evaluation Consistencies Presented: Thin Liquid, Mechanical Soft, [place] Thick Liquid, Pureed Oral Phase: Reduced Oral Transit Pharyngeal Phase: Delayed Swallow Decreased A-P transfer with solids Dietary Recommendations: Mechanical Soft Liquid Recommendations: [place] Consistancy Swallowing Precautions: Alternate Liquids/Solids, Decreased Bolus 1/2 Tsp, Decreased Rate of Oral Intake, Liquids from Spoon, No Straw, Small Bites and Sips, Sitting Upright 90 Degrees, Sitting 90 Degrees 30 Post Intake Dysphagia Evaluation Summary Patient was evaluated at bedside today for swallow function. The patient was given thin liquids at 1/2 tsp x2 with cough/clear post intake. The patient was given puree and thin liquids at 1/2 tsp with oral clearing, delayed swallow onset. The patient was able to manage intake without cough/choke. The patient is recommended for Dysphagia II with nectar consistency liquids. Information was provided to his nurse and written on his white board. Barriers to Learning Patient's medical status. Speech Short Term Goals Short Term Goals Short Term Goals 1) The patient will tolerate least restrictive diet level without s/s of aspiration at 90% or greater. 2) Patient/caregiver will utilize compensatory strategies for safest oral intake at 90% or greater. Speech Fpc Goals Gaming Commissioner Goals The patient will demonstrate safe effective intake of least restrictive diet level. Speech-Plan Patient/Family Goals Patient/Family Goals: Patient's plans are unknown, however staff are working on a fpc placement to meet his needs. Treatment Plan Speech Therapy Treatment Plan: Discontinue ST Patient will not receive further services due to being on comfort care. Treatment Duration: Aug 01, 2019 Frequency: 1 time per week Estimated Hrs Per Day: .25 hour per day Rehab Potential: Poor Barriers to Learning: Patient's medical status. Pt/Family Agrees to Plan: Yes Safety Risks/Education Teaching Recipient: Patient Teaching Methods: Discussion Response to Teaching: Unable to Return Demonstration, Reinforcement Needed Education Topics Provided: Safety of oral intake and diet level. Time Speech Therapy Time In: 11:00 Speech Therapy Time Out: 11:15 Total Billed Time: 15 Billed Treatment Time 1, DENIS Zapata Jul 29, 2019 14:20
--- NOTE | 2019-07-29 14:29 | NUR ---
CM/SS called [facility] to check on status of referral. They are still reviewing it, had to be sent to corporate due to concerns of finances. They will let know when decision has been made.
--- NOTE | 2019-07-29 14:45 | NUR ---
IV Infiltrated at this time. 4 mg morphine not given, wasted in omnicell.
--- NOTE | 2019-07-29 15:40 | NUR ---
DISCHARGE PLANNING: Palliative Care RN is working on finding a placement. I have sent referral to [facility] and am waiting to hear back from them. I update patient's mother on this [facility]. She verbalized how she really wished he could be in [place] so that his kids could see him. I suggested she call [facility] who declined admission for the generic reason of "can't meet his needs". adult protective caseworker called [facility] in [place] and asked if they would take someone on hospice. They indicated yes and a referral was sent to them.
[2019-07-29] MEDS: morphine (ROXINOL) 10 MG/0.5 ML oral conc 0.5 ML PO PRN ×2 (19:46→23:08)
[2019-07-29] MEDS: LORazepam ORAL CONCENTRATE 2 MG/ML 30 ML (ATIVAN) PO PRN ×2 (19:54→22:16)
[2019-07-29] MEDS: GABAPENTIN 100 MG (NEURONTIN) CAP PO SCH (20:30)
[2019-07-30] MEDS: morphine (ROXINOL) 10 MG/0.5 ML oral conc 0.5 ML PO PRN ×4 (02:45→20:27)
[2019-07-30] MEDS: LORazepam ORAL CONCENTRATE 2 MG/ML 30 ML (ATIVAN) PO PRN ×4 (02:45→20:27)
[2019-07-30] MEDS: GABAPENTIN 100 MG (NEURONTIN) CAP PO SCH ×2 (08:57→20:27)
--- NOTE | 2019-07-30 09:19 | NUR ---
DISCHARGE PLANNING: This RN spoke with [facility] in [place], they have reviewed clinical information and have decline the patient for admission.
--- NOTE | 2019-07-30 10:54 | NUR ---
PALLIATIVE CARE RN in to see patient. He is more alert today answering questions and is understandable. He reports he has pain in his back but doesn't want to get up because her "is commando"(without underpants). He would like to put on some pants. He has no I access today so medication PO is needed for pain. Still attempting to find placement for him.
--- NOTE | 2019-07-30 12:45 | Progress Note - Hospitalist ---
Subjective HPI/CC On Admission Date Seen by Provider: Jul 30, 2019 Time Seen by Provider: 12:39 chest pain Subjective/Events-last exam Pt is a laying in bed. States "You scared the hell out of me." but otherwise speech is unintelligible. More alert today. Objective Exam Vital Signs Vital Signs Date Time Temp Pulse Resp B/P (MAP) Pulse Ox O2 Delivery O2 Flow Rate FiO2 07/30/19 08:25 Room Air 07/26/19 08:46 92 07/24/19 13:00 78 07/24/19 12:00 99/53 (68) 07/24/19 12:00 37.0 35 40.00 07/24/19 12:00 40 Capillary Refill : Less Than 3 Seconds General Appearance: No Apparent Distress, Chronically ill Respiratory: Lungs Clear, No Respiratory Distress Cardiovascular: Regular Rate, Rhythm, No Murmur Gastrointestinal: Normal Bowel Sounds, Non Tender, Soft Results/Procedures Lab Patient resulted labs reviewed. 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) -Comfort measures order set in place -Continue to monitor and treat symptoms accordingly -Patient does not appear to be actively dying but would likely benefit from hospice still - Will add therapy to assist with functional status for discharge -Placement declined by [facility], [facility], and [facility], referral sent to [facility] Diagnosis/Problems Diagnosis/Problems (1) Heart failure with reduced ejection fraction Status: Acute (2) Shock Status: Acute (3) Polysubstance abuse Status: Chronic (4) NSTEMI (non-ST elevated myocardial infarction) Status: Acute (5) Atrial fibrillation Status: Acute (6) Congestive cardiac failure Status: Acute Clinical Quality Measures AMI/AHF: ASA po Prior to arrival: Yes DVT/VTE Risk/Contraindication: Risk Factor Score Per Nursin RFS Level Per Nursing on Admit: 3=High GARCIA HUSTON MD Jul 30, 2019 12:45
--- NOTE | 2019-07-30 12:49 | Progress Note - Hospitalist ---
Subjective HPI/CC On Admission Date Seen by Provider: Jul 29, 2019 Time Seen by Provider: 10:30 chest pain Subjective/Events-last exam LATE ENTRY: DATE OF SERVICE 07/29/19 Pt able to tell me the top of his feet hurt. Otherwise confused. No ROS possible. Discussed with mom regarding discharge plan and referrals in place for NH. Objective Exam Vital Signs Vital Signs Date Time Temp Pulse Resp B/P (MAP) Pulse Ox O2 Delivery O2 Flow Rate FiO2 07/30/19 08:25 Room Air 07/26/19 08:46 92 07/24/19 13:00 78 07/24/19 12:00 99/53 (68) 07/24/19 12:00 37.0 35 40.00 07/24/19 12:00 40 Capillary Refill : Less Than 3 Seconds General Appearance: No Apparent Distress, Chronically ill Respiratory: Lungs Clear, No Accessory Muscle Use, No Respiratory Distress Cardiovascular: Regular Rate, Rhythm, No Murmur Gastrointestinal: Normal Bowel Sounds, Soft Results/Procedures Lab Patient resulted labs reviewed. 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) -Comfort measures order set in place -Continue to monitor and treat symptoms accordingly -Await response from referral to [facility] -Speech to evaluate for swallow as patient lost IV access Diagnosis/Problems Diagnosis/Problems (1) Heart failure with reduced ejection fraction Status: Acute (2) Shock Status: Acute (3) Polysubstance abuse Status: Chronic (4) NSTEMI (non-ST elevated myocardial infarction) Status: Acute (5) Atrial fibrillation Status: Acute (6) Congestive cardiac failure Status: Acute Clinical Quality Measures AMI/AHF: ASA po Prior to arrival: Yes DVT/VTE Risk/Contraindication: Risk Factor Score Per Nursin RFS Level Per Nursing on Admit: 3=High GARCIA HUSTON MD Jul 30, 2019 12:49
--- NOTE | 2019-07-30 13:53 | Physical Therapy Evaluation ---
PT Evaluation-General Medical Diagnosis Admission Date Jul 20, 2019 at 21:47 Medical Diagnosis: Acutely Decompensated Heart Failure Onset Date: Jul 29, 2019 Therapy Diagnosis Therapy Diagnosis: generalized weakness/debility Height/Weight Weight (Pounds): 192 Weight (Ounces): 4.0 Precautions Precautions/Isolations: Fall Prevention, Standard Precautions Weight Bear Status Right Lower Extremity: Right Weight Bearing/Tolerated Left Lower Extremity: Left Weight Bearing/Tolerated Referral Physician: Katheryn Reason for Referral: Evaluation/Treatment Medical History Pertinent Medical History: Atrial Fib, CAD, DM, Heart Failure, HTN, Smoking Additional Medical History polysubstance abuse Current History EMS secondary to severe CP Reviewed History: Yes Social History Home: Single Level Current Living Status: Homeless Prior/Core FIM Prior Level of Function Therapy Code Descriptions/Definitions Functional Sac Measure: 0=Not Assessed/NA 4=Minimal Assistance 1=Total Assistance 5=Supervision or Setup 2=Maximal Assistance 6=Modified Sac 3=Moderate Assistance 7=Complete Sac Therapy Quality Codes: 6 Independent with activity with or without an assistive device 5 Patient requires set up or clean up by helper. Patient completes activity by themselves 4 Supervision or touching assist (CGA). [place] provide cues , steadying assist 3 The helper provides less than half the effort to complete the activity 2 The helper provides more than half the effort to complete the activity 1 Dependent. The helper does all the effort to complete an activity 7 Patient refused to complete or attempt activity 9 The patient did not perform the activity before the current illness or injury 88 Not attempted due to Medical conditions or safety concerns Functional Abilities and Goals: Independent: Patient completed the activities by him/herself, with or without an assistive device, with no assistance from a helper. Needed Some Help: Patient needed partial assistance from another person to complete activities. Dependent: A helper completed the activities for the patient. Unknown: Not Applicable: Bed Mobility: 7 Transfers (B,C,W/C) (FIM): 7 Gait: 7 Stairs: 7 Indoor Mobility (Ambulation): Independent Stairs: Independent Prior Devices Use: None PT Evaluation-Current Subjective Patient is in bed and very confused. Mumbling in response. Pain Numeric Pain Scale: 0-No Pain Location: No Pain Reported Objective Patient Orientation: Confused, Mumbles Problem Solving: Poor Attachments: Ly Catheter ROM/Strength ROM Lower Extremities bilateral LE WFL Strength Lower Extremities 3/5 grossly bilateral LE Integumentary/Posture Integumentary refer to nursing notes Bladder Incontinence: Ly Cath Posture WFL Neuromuscular (Tone, Coordination, Reflexes) severely diminished coordination/motor planning Sensory Vision: Unable to Assess Hearing: Functional Sensation Right Lower Extremit: Impaired Sensation Left Lower Extremity: Impaired Transfers Therapy Code Descriptions/Definitions Functional Sac Measure: 0=Not Assessed/NA 4=Minimal Assistance 1=Total Assistance 5=Supervision or Setup 2=Maximal Assistance 6=Modified Sac 3=Moderate Assistance 7=Complete Sac Transfers (B, C, W/C) (FIM): 2 Scootin Rollin Supine to/from Sit: 2 Sit to/from Stand: 2 max assist x 2 with all mobility due to weakness Gait Anticipated Mode of Locomotion: Both Gait (FIM): 1 Distance (FIM): 1=up to 49 ft Distance: 5' Gait Level of Assist: 2 Gait Persons Needed: 2 Gait Assistive Device: FWW Comments/Gait Description patient displays flexed knee standing posture and is impulsive to sit from standing position to recliner Balance Sitting Static: Fair Sitting Dynamic: Fair Standing Static: Fair Standing Dynamic: Poor Assessment/Needs 49 y.o. male,will benefit from skilled PT to address functional strength and mobility to improve current LOF. Patient required assistance to feed self due to weakness and diminished motor skills. Rehab Potential: Poor PT Custodial Goals Membership Counselor Goals PT Membership Counselor Goals Time Frame: Aug 24, 2019 Transfers (B,C,W/C) (FIM): 5 Gait (FIM): 4 Gait distance (FIM): 3=150 ft Distance: 150' Gait Level of Assist: 4 Gait Assistive Device: FWW PT Plan Problem List Problem List: Activity Tolerance, Functional Strength, Safety, Balance, Gait, Transfer, Bed Mobility Treatment/Plan Treatment Plan: Continue Plan of Care Treatment Plan: Bed Mobility, Education, Functional Activity Andrew, Functional Strength, Gait, Safety, Therapeutic Exercise, Transfers Treatment Duration: Aug 24, 2019 Frequency: 6 times per week Estimated Hrs Per Day: .25 hour per day Patient and/or Family Agrees t: Yes Discharge Recommendations Therapy Discharge Recommendati: 24 Hour Supervision Time/GCodes Time In: 1315 Time Out: 1339 Total Billed Treatment Time: 24 Total Billed Treatment 1 visit EVHigh 24 min ROWENA MUNOZ PT Jul 30, 2019 13:53
[2019-07-30] MEDS: SCOPOLAMINE PATCH REMOVAL TP SCH (16:39)
[2019-07-30] MEDS: SCOPOLAMINE 1.5 MG (TRANSDERM-SCOP) PATCH TOP SCH (16:40)
[2019-07-31] MEDS: morphine (ROXINOL) 10 MG/0.5 ML oral conc 0.5 ML PO PRN ×3 (05:01→19:44)
[2019-07-31] MEDS: LORazepam ORAL CONCENTRATE 2 MG/ML 30 ML (ATIVAN) PO PRN ×2 (05:01→17:46)
[2019-07-31 08:00] VITALS: BP 112/74
[2019-07-31] MEDS: GABAPENTIN 100 MG (NEURONTIN) CAP PO SCH ×2 (08:39→19:44)
--- NOTE | 2019-07-31 10:08 | Physical Therapy Daily Note ---
PT Daily Note-Current Subjective Patient in bed pre tx, agrees to PT, has pain on bottom but is unrated. Patient constantly mumbles. Appearance Patient in recliner post tx with nurse call, phone, tray, all needs met, legs elevated and chair alarm on, has telesitter in room, nurse notified. Mental Status Patient Orientation: Person, Confused Attachments: Ly Catheter Transfers Therapy Code Descriptions/Definitions Functional Wise Measure: 0=Not Assessed/NA 4=Minimal Assistance 1=Total Assistance 5=Supervision or Setup 2=Maximal Assistance 6=Modified Wise 3=Moderate Assistance 7=Complete Wise Therapy Quality Codes: 6 Independent with activity with or without an assistive device 5 Patient requires set up or clean up by helper. Patient completes activity by themselves 4 Supervision or touching assist (CGA). [place] provide cues , steadying assist 3 The helper provides less than half the effort to complete the activity 2 The helper provides more than half the effort to complete the activity 1 Dependent. The helper does all the effort to complete an activity 7 Patient refused to complete or attempt activity 9 The patient did not perform the activity before the current illness or injury 88 Not attempted due to Medical conditions or safety concerns Transfers (B, C, W/C) (FIM): 2 Scootin Rollin Supine to/from Sit: 2 Sit to/from Stand: 3 Bed to/from Chair: 3 Weight Bearing Right Lower Extremity: Right Weight Bearing/Tolerated Left Lower Extremity: Left Weight Bearing/Tolerated Gait Training Gait (FIM): 1 Distance: 6' Gait Level of Assist: 3 Gait Persons Needed: 1 Gait Assistive Device: FWW slow, unsteady, no knee buckling but they seemed on the verge of doing it, cues for safety and direction, retropulsive when stepping backward. Treatments bed mobility and transfers, ambulation Assessment Current Status: Fair Progress slightly improved LE strength and ambulation PT Senior Living Goals Senior Living Goals PT Mushroom Press Operator Goals Time Frame: Aug 24, 2019 Transfers (B,C,W/C) (FIM): 5 Gait (FIM): 4 Gait distance (FIM): 3=150 ft Distance: 150' Gait Level of Assist: 4 Gait Assistive Device: FWW PT Plan Problem List Problem List: Activity Tolerance, Functional Strength, Safety, Balance, Gait, Transfer, Bed Mobility, ROM Treatment/Plan Treatment Plan: Continue Plan of Care Treatment Plan: Bed Mobility, Education, Functional Activity Andrew, Functional Strength, Gait, Safety, Therapeutic Exercise, Transfers Treatment Duration: Aug 24, 2019 Frequency: 6 times per week Estimated Hrs Per Day: .25 hour per day Patient and/or Family Agrees t: Yes Safety Risks/Education Patient Education: Gait Training, Transfer Techniques, Correct Positioning, Safety Issues Teaching Recipient: Patient Teaching Methods: Demonstration, Discussion Response to Teaching: Reinforcement Needed Time/GCodes Time In: 0945 Time Out: 1005 Total Billed Treatment Time: 20 Total Billed Treatment 1 visit FA 20 SHANNAN CARIAS PT Jul 31, 2019 10:08
[2019-07-31 12:00] VITALS: BP 115/73
--- NOTE | 2019-07-31 13:40 | Progress Note - Hospitalist ---
Subjective HPI/CC On Admission Date Seen by Provider: Jul 31, 2019 Time Seen by Provider: 16:22 chest pain Subjective/Events-last exam Pt sitting up in bed. Eating breakfast. Asked "What are the Oriental Orthodox?" Otherwise speech somewhat intelligible. Objective Exam Vital Signs Vital Signs Date Time Temp Pulse Resp B/P (MAP) Pulse Ox O2 Delivery O2 Flow Rate FiO2 07/31/19 20:03 35.5 80 22 116/76 (89) 93 Room Air Capillary Refill : Less Than 3 Seconds General Appearance: No Apparent Distress, Chronically ill Respiratory: Lungs Clear, No Respiratory Distress Cardiovascular: Regular Rate, Rhythm, No Murmur Neurologic/Psychiatric: Alert Results/Procedures Lab Patient resulted labs reviewed. 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) -Comfort measures order set in place -Continue to monitor and treat symptoms accordingly -PT/OT ordered to help with functional status as does not appear to be actively dying at this time -Referral sent to [facility] and [facility]- likely will be able to DC there tomorrow Diagnosis/Problems Diagnosis/Problems (1) Heart failure with reduced ejection fraction Status: Acute (2) Shock Status: Acute (3) Polysubstance abuse Status: Chronic (4) NSTEMI (non-ST elevated myocardial infarction) Status: Acute (5) Atrial fibrillation Status: Acute (6) Congestive cardiac failure Status: Acute Clinical Quality Measures AMI/AHF: ASA po Prior to arrival: Yes DVT/VTE Risk/Contraindication: Risk Factor Score Per Nursin RFS Level Per Nursing on Admit: 3=High GARCIA HUSTON MD Jul 31, 2019 13:40
--- NOTE | 2019-07-31 14:05 | NUR ---
DISCHARGE PLANNING/PALLIATIVE CARE RN received confirmation that [facility] has accepted the patient for admission tomorrow hopefully. Spoke with mother, Lyndsay who is grateful for the acceptance. We discussed hospice options and they have decided to go with [facility] as their provider. Will send clinical information.
[2019-07-31 16:08] VITALS: BP 102/65
[2019-07-31 20:03] VITALS: BP 116/76
[2019-08-01] MEDS: LORazepam ORAL CONCENTRATE 2 MG/ML 30 ML (ATIVAN) PO PRN ×2 (00:25→14:24)
[2019-08-01] MEDS: morphine (ROXINOL) 10 MG/0.5 ML oral conc 0.5 ML PO PRN ×2 (04:14→14:23)
[2019-08-01] MEDS ORDERED: LORA2ORA5 PO (08:39)
[2019-08-01] MEDS ORDERED: GABA-486 PO (08:39)
[2019-08-01] MEDS ORDERED: MORP100S3 PO (08:39)
[2019-08-01] MEDS ORDERED: Bisacodyl PR (08:39)
--- NOTE | 2019-08-01 08:45 | Discharge Inst-Simple/Standard ---
Discharge Inst-Standard Reconcile Patient Problems Problems Reviewed?: Yes Discharge Medications New, Converted or Re-Newed RX: Transmitted to Pharmacy Patient Instructions/Follow Up Plan of Care/Instructions/FU: Please continue to take your medications as written. Please follow up with the [facility]ator [facility] of the senior living in the next 1 week. Activity as Tolerated: Yes Discharge Diet: Semi-Solid Diet Return to The Hospital For: Poorly controlled symptoms. Planned Outpatient Orders/Ref. Pneu Vac Indicated: Yes GARCIA HUSTON MD Aug 01, 2019 8:45 am
[2019-08-01] MEDS: GABAPENTIN 100 MG (NEURONTIN) CAP PO SCH (09:08)
--- NOTE | 2019-08-01 09:35 | Discharge Summary ---
Diagnosis/Chief Complaint Date of Admission Jul 20, 2019 at 9:47 pm Date of Discharge Discharge Date: Aug 01, 2019 Admission Diagnosis Atrial Flutter Acutely Decompensated heart failure Primary Care No,Local Physician Discharge Diagnosis (1) Heart failure with reduced ejection fraction Status: Acute (2) Shock Status: Acute (3) Polysubstance abuse Status: Chronic (4) NSTEMI (non-ST elevated myocardial infarction) Status: Acute (5) Atrial fibrillation Status: Acute (6) Congestive cardiac failure Status: Acute Discharge Summary Procedures/Consulations Pulmonology- Dr Leggett Cardiology- Dr Randle Discharge Physical Exam Allergies: Coded Allergies: Penicillins (Unverified Adverse Reaction, Unknown, 07/22/19) Vitals & I&Os Vital Signs Date Time Temp Pulse Resp B/P (MAP) Pulse Ox O2 Delivery O2 Flow Rate FiO2 08/01/19 15:55 36.4 81 18 123/81 93 Room Air 3.00 General Appearance: No Apparent Distress, Chronically ill Cardiovascular: Regular Rate, Rhythm, No Murmur Neurologic/Psychiatric: Alert, Disoriented Hospital Course Pt is a 49yoCM who was admitted due to atrial fibrillation with RVR. Rate control was attempted with cardizem but this caused profound hypotension so cardiology did a SRINI and cardioversion. Following the cardioversion he went in to acute heart failure and required vasopressors and an IABP. Discussions were had with family regarding potential transfer for LVAD consideration or even transplant but patient's mother and daughter elected comfort care measures only due to his persistent drug use and the likelihood of not qualifying for transplant. He was transferred to comfort measures only and stabilized. He was discharged on hospice to nursing for snf care. Labs (last 24 hrs) Microbiology 07/23/19 Blood Culture - Final, Complete No growth 07/23/19 Gram Stain - Final, Complete 07/23/19 Sputum Culture - Final, Complete Usual Mixed Danica Haemophilus influenza 07/23/19 Urine Culture - Final, Complete NO GROWTH Patient resulted labs reviewed. Discussion & Recommendations Discharge Planning: >30 minutes discharge planning Discharge Home Medications: Active Scripts Active [Bisacodyl] 10 MG Supp 10 Mg W[place] DAILY PRN Lorazepam 2 Mg/1 Ml Oral.conc 0 Mg PO Q2H PRN Gabapentin 100 Mg Capsule 100 Mg PO BID Morphine Conc. 20mg/ml (Morphine Sulfate) 100 Mg/5 Ml Solution 10 Mg PO Q4H PRN Instructions to patient/family Please see electronic discharge instructions given to patient. Clinical Quality Measures AMI/AHF: ASA po Prior to arrival: Yes DVT/VTE Risk/Contraindication: Risk Factor Score Per Nursin RFS Level Per Nursing on Admit: 3=High GARCIA HUSTON MD Aug 01, 2019 09:35
--- NOTE | 2019-08-01 11:15 | NUR ---
CM/SS discharge information faxed to [facility]. They will transport this day at 1500.
[2019-08-01 12:00] VITALS: BP 123/81
[2019-08-01 15:55] VITALS: BP 123/81
== END 2019-08-01 15:15 | disposition hospice, home (50) | DRG 270 ==
LOC: ER FS 17:50 → ICU 21:47 → MERGE 21:47 → ICU 07-23 13:09 → 4TH 07-26 09:18
PROVIDERS: ADMIT Family Medicine; ATTEND Family Medicine
PROC: 5A2204Z Restoration of Cardiac Rhythm, Single (ICD-10-PCS; 2019-07-22)
PROC: B245ZZ4 Ultrasonography of Left Heart, Transesophageal (ICD-10-PCS; 2019-07-22)
PROC: 5A02210 Assistance with Cardiac Output using Balloon Pump, Continuous (ICD-10-PCS; principal; 2019-07-23)
PROC: 4A023N7 Measurement of Cardiac Sampling and Pressure, Left Heart, Percutaneous Approach (ICD-10-PCS; 2019-07-23)
PROC: B3101ZZ Fluoroscopy of Thoracic Aorta using Low Osmolar Contrast (ICD-10-PCS; 2019-07-23)
PROC: B2111ZZ Fluoroscopy of Multiple Coronary Arteries using Low Osmolar Contrast (ICD-10-PCS; 2019-07-23)
PROC: 02HV33Z Insertion of Infusion Device into Superior Vena Cava, Percutaneous Approach (ICD-10-PCS; 2019-07-23)
PROC: 0BH17EZ Insertion of Endotracheal Airway into Trachea, Via Natural or Artificial Opening (ICD-10-PCS; 2019-07-23)
PROC: 5A1945Z Respiratory Ventilation, 24-96 Consecutive Hours (ICD-10-PCS; 2019-07-23)
DX: I21.4 Non-ST elevation (NSTEMI) myocardial infarction (principal); I50.21 Acute systolic (congestive) heart failure; I47.1 Supraventricular tachycardia; I48.92 Unspecified atrial flutter; I42.0 Dilated cardiomyopathy; R57.0 Cardiogenic shock; F23 Brief psychotic disorder; Z51.5 Encounter for palliative care; Z66 Do not resuscitate; J96.00 Acute respiratory failure, unspecified whether with hypoxia or hypercapnia; I44.1 Atrioventricular block, second degree; I95.9 Hypotension, unspecified; E11.9 Type 2 diabetes mellitus without complications; B19.20 Unspecified viral hepatitis C without hepatic coma; R05 Cough; F17.210 Nicotine dependence, cigarettes, uncomplicated; F41.9 Anxiety disorder, unspecified; R45.1 Restlessness and agitation; F15.10 Other stimulant abuse, uncomplicated; F12.10 Cannabis abuse, uncomplicated; I48.91 Unspecified atrial fibrillation; I87.2 Venous insufficiency (chronic) (peripheral); I34.0 Nonrheumatic mitral (valve) insufficiency; Z87.74 Personal history of (corrected) congenital malformations of heart and circulatory system; Z79.4 Long term (current) use of insulin; Z88.0 Allergy status to penicillin; Z72.89 Other problems related to lifestyle
CPT/HCPCS: 33967; 36221; 36415; 71045; 80048; 80053; 80306; 80320; 81000; 82550; 82805; 82962; 83036; 83605; 83735; 83880; 84100; 84478; 84484; 85025; 87040; 87070; 87077; 87081; 87088; 87185; 87205; 93005; 93306; 93312; 93320; 93325; 93455; 94002; 94003; 94640; 94799; 96361; 96374; 96375

== ENCOUNTER 2019-11-23 22:43 | Inpatient (IN) | payer MEDICAID ==
[~2019-11-23] VITALS: Ht 185.5 cm; Wt 74.1 kg
[~2019-11-23 22:43] MED LIST: Bisacodyl PR; GABA-486 PO; LORAZ30SOL PO; MORP100S3 PO
[2019-11-23] MEDS ORDERED: NS IV 1000 ML 1,000 ML IV ONE (23:00)
[2019-11-23] MEDS ORDERED: cefTRIAXone FOR IV USE 2,000 MG in WATER (STERILE) FOR INJECTION 20 ML IV ONE (23:00)
--- NOTE | 2019-11-23 23:18 | ED Integumentary General ---
General Chief Complaint: Skin/Wound Problems Stated Complaint: LEFT ARM/SHOULDER PAIN and axilla hydranitis suprativa Source: patient Exam Limitations: clinical condition, other (intellectual impairment possibly intoxication) History of Present Illness Date Seen by Provider: Nov 23, 2019 Time Seen by Provider: 23:00 Initial Comments 49-year-old male presents with hidradenitis suppurativa the left axilla in addition to from chemosis excoriated and ruptured draining end of the skin and causing more infection and cellulitis. Patient has very poor hygiene. He has a history of methamphetamine injection drug use he states that he tried to squeeze the pus out of the lesions but instead ruptured lesions to the subcutaneous compartments. Patient reports he last injected over a year ago. Patient is aware that his infections or serious and incision and drainage for the fluctuant lesion in his left axilla as needed. He gave informed consent for incision and drainage. Patient also gave informed consent for diagnostic and therapeutic services. Patient reports he has taken Keflex 500 mg 4 times a day without any difficulty he says he was told he is allergic to penicillin but did not have an event in which he had an atopic reaction to penicillin in the past. Patient will be given ceftriaxone 2 g followed up with clindamycin 300 4 times a day for a laboratory care. Follow-up care with for continued care. Timing/Duration: week, getting worse (she has self excoriated his areas of cellulitis and abscess tried to squeeze out the pus but ruptured these lesions into the subcutaneous compartment causing cellulitis. He has very poor hygiene does not wash his hands.) Severity: moderate Location: torso (and left axilla superior thorax on the left posterior thorax and on the right anterior nipple) Possible Cause: exposure to illness, other (history of methamphetamine injection use and poor hygiene with self manipulation of furunculosis) Modifying Factors: improves with scratching (patient has been educated to stop manipulation of his furunculosis) Associated Symptoms: change in skin texture, other (very poor hygiene fingernails scratching his lesions open) Allergies and Home Medications Allergies Coded Allergies: Penicillins (Unverified Adverse Reaction, Unknown, 07/22/19) Home Medications Gabapentin 100 Mg Capsule, 100 MG PO BID Prescribed by: GARCIA HUSTON on 08/01/19 0839 Lorazepam 2 Mg/1 Ml Oral.conc, 0 MG PO Q2H PRN for ANXIETY Prescribed by: GARCIA HUSTON on 08/01/19838 Morphine Sulfate 100 Mg/5 Ml Solution, 10 MG PO Q4H PRN for PAIN-SEVERE Prescribed by: GARCIA HUSTON on 08/01/19838 [Bisacodyl] 10 MG SUPP, 10 MG AK DAILY PRN for Constipation-Comfort Care Prescribed by: GARCIA HUSTON on 08/01/19838 Patient Home Medication List Home Medication List Reviewed: Yes (patient reports that he has taken Keflex 500 4 times a day without any symp) Review of Systems Review of Systems Constitutional: malaise, weakness, other (enlarging abscesses on body) EENTM: no symptoms reported, mouth pain, other (very poor oral hygiene and dental lesions methamphetamine dependence) Respiratory: cough, wheezing (no stridor but long history of tobacco use and marijuana use) Cardiovascular: chest pain, other (patient reports myocardial infarction when he was using methamphetamine. Patient also states that he had another myocardial infarction recently. 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) Gastrointestinal: nausea Genitourinary: no symptoms reported Musculoskeletal: back pain, muscle stiffness (and areas of infection left axilla left posterior superior thoracic paraspinal muscles and right nipple area) Skin: change in color, lesions (consistent with hidradenitis suppurativa left axilla and excoriated abscesses on the posterior superior thoracic area near the supraspinatus) Psychiatric/Neurological: Anxiety, Depressed (long-standing history of methamphetamine abuse) Endocrine: No Symptoms Reported Hematologic/Lymphatic: No Symptoms Reported Past Gbzlthq-Ewogyw-Ronecq Hx Patient Social History Drug of Choice: marijuana, meth Type Used: Cigarettes 2nd Hand Smoke Exposure: No Recent Foreign Travel: No Contact w/Someone Who Travel: No Recent Hopitalizations: Yes Seasonal Allergies Seasonal Allergies: No Past Medical History Surgeries: No Cardiac Respiratory: No Cardiac: Yes (heart surgery at 16mo for hole in heart) Neurological: No Genitourinary: No Gastrointestinal: No Musculoskeletal: No Endocrine: Yes Diabetes, Insulin dep HEENT: No Cancer: No Psychosocial: Yes (substance abuse ) Anxiety Integumentary: No Family Medical History Other Conditions/Hx Physical Exam Vital Signs Vital Signs - First Documented 11/23/19 23:38 Temp 36.5 Pulse 106 Resp 18 B/P (MAP) 136/84 (101) Pulse Ox 98 O2 Delivery Room Air Capillary Refill : Less than 2 seconds over multiple areas of furunculosis and hidradenitis suprativa General Appearance: mild distress, thin HEENT: PERRL/EOMI, pharyngeal erythema, other (very poor oral hygiene) Neck: full range of motion Cardiovascular: regular rate, rhythm, no edema, no gallop, no JVD, systolic murmur (II/ congenital heart dx post surgery and subsequent [place] with IDU methamphetamine use) Respiratory: crackles, rales, rhonchi (with COPD changes) Gastrointestinal: normal bowel sounds, soft, no pulsatile mass Back: no CVA tenderness, other (abscess formation of the posterior left upper thoracic area abscess formation in the right nipple both are not consolidated with fluctuance but hard) Extremities: normal range of motion, normal capillary refill, other (evidence of IVDU from methamphetamine use in the past poor hygiene excoriated lesions contaminated fingernails) Neurologic/Psychiatric: director traffic and planning II-XII nml as tested, no motor/sensory deficits, alert, oriented x 3, other (anxiety) Skin: tattoos/piercings, other (furunculosis with excoriated lesions that have been manipulated and ruptured into the subcutaneous area because of aggressive scratching and squeezing by the patient) Skin Problem Location: upper extremities (hidradenitis a particular left upper extremity axilla incision and drainage) Skin Problem Character: drainage, lesion, tenderness, thickening, other (hidradenitis operative of left axilla and excoriated manipulated areas of cellulitis posterior left upper thorax and right nipple area) Lymphatic: axilla node tender (L) Procedures/Interventions I&D : Blade Size: 11 I & D Procedure: sterile drapes applied Progress Patient has digitally manipulated and squeeze the abscess in his left axilla causing it rupture subcutaneously. He is demonstrating thing to his abscess on the posterior upper left chest and his right nipple area. Patient was strongly advised to stop doing such. He states he feels he cannot control himself. He has a long history of methamphetamine use and injection drug use. Date of ETT Placement: Jul 23, 2019 Time of ETT Placement: 05 Progress/Results/Core Measures Results/Orders Lab Results Laboratory Tests Test 11/23/19 00:08 11/23/19 23:17 11/24/19 00:01 11/24/19 00:22 Range/Units Urine Color YELLOW Urine Clarity CLEAR Urine pH 6.0 5-9 Urine Specific [place] 1.010 L 1.016-1.022 Urine Protein NEGATIVE NEGATIVE Urine Glucose (UA) 3+ H NEGATIVE Urine Ketones NEGATIVE NEGATIVE Urine Nitrite NEGATIVE NEGATIVE Urine Bilirubin NEGATIVE NEGATIVE Urine Urobilinogen 0.2 < = 1.0 MG/DL Urine Leukocyte Esterase NEGATIVE NEGATIVE Urine RBC (Auto) NEGATIVE NEGATIVE Urine RBC 0-2 /HPF Urine WBC RARE /HPF Urine Squamous Epithelial Cells 0-2 /HPF Urine Crystals NONE /LPF Urine Bacteria NEGATIVE /HPF Urine Casts NONE /LPF Urine Mucus NEGATIVE /LPF Urine Culture Indicated NO Urine Opiates Screen NEGATIVE NEGATIVE Urine Oxycodone Screen NEGATIVE NEGATIVE Urine Methadone Screen NEGATIVE NEGATIVE Urine Propoxyphene Screen NEGATIVE NEGATIVE Urine Barbiturates Screen NEGATIVE NEGATIVE Ur Tricyclic Antidepressants Screen NEGATIVE NEGATIVE Urine Phencyclidine Screen NEGATIVE NEGATIVE Urine Amphetamines Screen NEGATIVE NEGATIVE Urine Methamphetamines Screen NEGATIVE NEGATIVE Urine Benzodiazepines Screen NEGATIVE NEGATIVE Urine Cocaine Screen NEGATIVE NEGATIVE Urine Cannabinoids Screen POSITIVE H NEGATIVE White Blood Count 11.3 H 4.3-11.0 10^3/uL Red Blood Count 4.76 4.35-5.85 10^6/uL Hemoglobin 15.4 13.3-17.7 G/DL Hematocrit 44 40-54 % Mean Corpuscular Volume 92 80-99 FL Mean Corpuscular Hemoglobin 32 25-34 PG Mean Corpuscular Hemoglobin Concent 35 32-36 G/DL Red Cell Distribution Width 11.5 10.0-14.5 % Platelet Count 340 130-400 10^3/uL Mean Platelet Volume 10.0 7.4-10.4 FL Neutrophils (%) (Auto) 67 42-75 % Lymphocytes (%) (Auto) 22 12-44 % Monocytes (%) (Auto) 9 0-12 % Eosinophils (%) (Auto) 1 0-10 % Basophils (%) (Auto) 0 0-10 % Neutrophils # (Auto) 7.6 1.8-7.8 X 10^3 Lymphocytes # (Auto) 2.5 1.0-4.0 X 10^3 Monocytes # (Auto) 1.0 0.0-1.0 X 10^3 Eosinophils # (Auto) 0.1 0.0-0.3 10^3/uL Basophils # (Auto) 0.0 0.0-0.1 10^3/uL Sodium Level 130 L 135-145 MMOL/L Potassium Level 5.2 H 3.6-5.0 MMOL/L Chloride Level 90 L 98-107 MMOL/L Carbon Dioxide Level 28 21-32 MMOL/L Anion Gap 12 5-14 MMOL/L Blood Urea Nitrogen 10 7-18 MG/DL Creatinine 0.71 0.60-1.30 MG/DL Estimat Glomerular Filtration Rate > 60 BUN/Creatinine Ratio 14 Glucose Level 493 *H 70-105 MG/DL Calcium Level 9.7 8.5-10.1 MG/DL Corrected Calcium 9.6 8.5-10.1 MG/DL Total Bilirubin 0.4 0.1-1.0 MG/DL Aspartate Amino Transf (AST/SGOT) 31 5-34 U/L Alanine Aminotransferase (ALT/SGPT) 41 0-55 U/L Alkaline Phosphatase 131 40-136 U/L Total Protein 7.7 6.4-8.2 GM/DL Albumin 4.1 3.2-4.5 GM/DL Lactic Acid Level 1.67 0.50-2.00 MMOL/L Glucometer 402 *H 70-110 MG/DL My Orders Orders - MIGUEL NEWBY DO Comprehensive Metabolic Panel (11/23/19 23:00) Wound Culture (11/23/19 23:00) Venous Access Request Order (11/23/19 23:00) Ns Iv 1000 Ml (Sodium Chloride 0.9%) (11/23/19 23:00) Ceftriaxone For Iv Use (Rocephin For I (11/23/19 23:00) Cbc With Automated Diff (11/23/19 23:16) Ketorolac Injection (Toradol Injection) (11/23/19 23:30) Ed Iv/Invasive Line Start (11/23/19 23:19) Urinalysis (11/23/19 23:30) Ondansetron Injection (Zofran Injectio (11/23/19 23:30) Ondansetron Injection (Zofran Injectio (11/23/19 23:28) Ondansetron Injection (Zofran Injectio (11/23/19 23:45) Lactic Acid Analyzer (11/24/19 00:06) Drug Screen Stat (Urine) (11/24/19 00:06) Accucheck Stat ONCE (11/24/19 00:20) Vancomycin Injection (Vancomycin Injecti (11/24/19 00:30) Blood Culture (11/24/19 00:22) Insulin (Regular) Human (Humulin R (Per (11/24/19 00:22) Blood Culture (11/23/19 22:48) Ns Iv 1000 Ml (Sodium Chloride 0.9%) (11/24/19 00:45) Chest 1 View Ap/Pa Only (11/24/19 00:36) Medications Given in ED Current Medications Medications Dose Ordered Sig/Scarlett Route Start Time Stop Time Status Last Admin Dose Admin Ceftriaxone Sodium 2000 mg/ Sterile Water 20 ml @ 240 mls/hr ONCE ONCE IV 11/23/19 23:00 11/23/19 23:13 DC 11/23/19 23:27 240 MLS/HR Ketorolac Tromethamine 30 mg ONCE ONCE IVP 11/23/19 23:30 11/23/19 23:31 DC 11/23/19 23:26 30 MG Ondansetron HCl 4 mg ONCE ONCE IVP 11/23/19 23:30 11/23/19 23:34 DC 11/23/19 23:35 4 MG Sodium Chloride 1,000 ml @ 100 mls/hr Q10H ONCE IV 11/23/19 23:00 11/24/19 08:59 11/23/19 23:26 100 MLS/HR Sodium Chloride 1,000 ml @ 999 mls/hr Q1H1M ONCE IV 11/24/19 00:45 11/24/19 01:45 11/24/19 00:42 999 MLS/HR Vancomycin HCl 1000 mg/Sodium Chloride 250 ml @ 250 mls/hr ONCE ONCE IV 11/24/19 00:30 11/24/19 01:29 11/24/19 00:44 250 MLS/HR Vital Signs/I&O 11/23/19 23:38 Temp 36.5 Pulse 106 Resp 18 B/P (MAP) 136/84 (101) Pulse Ox 98 O2 Delivery Room Air 11/24/19 00:00 Intake Total 20 ml Balance 20 ml Progress Progress Note : Time: 00:33 Progress Note Patient has received 2 g of ceftriaxone is no starting 1 g of vancomycin. Patient's blood sugar was found to be over 400 after 1 L of fluid it was still over 400 were giving him 10 units of regular insulin IV and I have recommended inpatient care. Patient has consented to admission to the [facility]. Second liter of normal saline is running in. Departure Communication (Admissions) Time/Spoke to Admitting Phy: 11:51 Dr. Chang has accepted the patient for transfer to [facility] Time/Spoke to Consulting Phy: 00:51 Dr. Rolon was contacted as a hospitalist at the [facility]. Patient has been accepted for admission and will be transferred by [facility] ambulance. Patient has received 2 g of ceftriaxone currently receiving 1 g of vancomycin and has received 10 units of regular insulin IV. Patient also is on his second liter of normal saline. Admission orders ridging orders have been ordered. Patient will be seen first light with Dr. Hallman Family Conversation Patient and female friend of both agreed to having the patient admitted to [facility]. Patient understands that his infection will continue to get out of control with his hyperglycemia and electrolyte imbalance. Surgical consultation with Dr. Vann tomorrow morning for possible surgical intervention once diabetes is under control and IV antibiotics have established control of infection. Patient does have hidradenitis suppurativa the left axilla also has abscess formation of the posterior upper left chest and the anterior right nipple areas Communication (PCP) Dr Charles has terminated care the patient with the patient does want to be admitted for IV antibiotics and control of his [id number] diabetes Pseudomonal Risk: Other (IDU hx) Patient allergy/sensitivity/re: Cephalosporins (patient has been on ceftriaxone IV and cephalexin by mouth without difficulty.) Impression Primary Impression: Hyperglycemia due to type 2 diabetes mellitus Additional Impressions: Hyponatremia Furunculosis Hidradenitis suppurativa of left axilla Disposition: ADMITTED INPATIENT (Dr. Chang has accepted the patient at the [facility]) Condition: Unchanged Admissions Decision to Admit Reason: Admit from ER (General) Decision to Admit/Date: Nov 24, 2019 Time/Decision to Admit Time: 01:02 Departure-Patient Inst. Referrals: NO,LOCAL PHYSICIAN (PCP/Family) Primary Care Physician Patient Instructions: Abscess Incision and Drainage, Diabetes Type 2 (DC), Hyperglycemia, Adult (DC), Hyponatremia (DC) Copy Copies To 1: OLMAN FERRIS MD Copies To 2: GLENN VANN DO MIGUEL NEWBY DO Nov 23, 2019 23:18
[2019-11-23 23:25] LABS: BASOPHILS % (AUTO) 0 % (0-10); EOSINOPHILS # (AUTO) 0.1 10^3/uL (0.0-0.3); EOSINOPHILS % (AUTO) 1 % (0-10); HEMATOCRIT 44 % (40-54); HEMOGLOBIN 15.4 G/DL (13.3-17.7); LYMPHOCYTES # (AUTO) 2.5 X 10^3 (1.0-4.0); LYMPHOCYTES % (AUTO) 22 % (12-44); MEAN CORPUSCULAR HEMOGLOBIN 32 PG (25-34); MEAN CORPUSCULAR HGB CONC 35 G/DL (32-36); MEAN CORPUSCULAR VOLUME 92 FL (80-99); MONOCYTES % (AUTO) 9 % (0-12); NEUTROPHILS # (AUTO) 7.6 X 10^3 (1.8-7.8); NEUTROPHILS % (AUTO) 67 % (42-75); PLATELET COUNT 340 10^3/uL (130-400); RED CELL DISTRIBUTION WIDTH 11.5 % (10.0-14.5); WHITE BLOOD COUNT 11.3 10^3/uL (4.3-11.0)
[2019-11-23] MEDS ORDERED: ONDANSETRON 4 MG/2 ML (SDV) Z0FRAN ONE (23:28)
[2019-11-23] MEDS ORDERED: ONDANSETRON 4 MG/2 ML (SDV) Z0FRAN IVP ONE ×2 (23:30→23:45)
[2019-11-23] MEDS ORDERED: KETOROLAC 30 MG/ML VIAL IVP ONE (23:30)
[2019-11-23 23:43] LABS: BUN/CREATININE RATIO 14; CARBON DIOXIDE 28 MMOL/L (21-32); CHLORIDE 90 MMOL/L (98-107); CREATININE SERUM 0.71 MG/DL (0.60-1.30); GFR ESTIMATED > 60; POTASSIUM 5.2 MMOL/L (3.6-5.0); SODIUM 130 MMOL/L (135-145)
[2019-11-23 23:44] LABS: ALANINE AMINOTRANSFERASE 41 U/L (0-55); ALBUMIN 4.1 GM/DL (3.2-4.5); ALKALINE PHOSPHATASE 131 U/L (40-136); BILIRUBIN,TOTAL 0.4 MG/DL (0.1-1.0); CALCIUM 9.7 MG/DL (8.5-10.1); GLUCOSE 493 MG/DL (70-105); TOTAL PROTEIN 7.7 GM/DL (6.4-8.2)
[2019-11-24] VITALS (7 sets, daily range): BP systolic 116–138; BP diastolic 61–89
[2019-11-24 00:20] LABS: COLOR,URINE YELLOW
[2019-11-24 00:21] LABS: BACTERIA,URINE NEGATIVE /HPF; BILIRUBIN,URINE NEGATIVE (NEGATIVE); CLARITY,URINE CLEAR; GLUCOSE, URINE (UA) 3+ (NEGATIVE); KETONES,URINE NEGATIVE (NEGATIVE); LEUKOCYTE ESTERASE ,URINE NEGATIVE (NEGATIVE); NITRITE,URINE NEGATIVE (NEGATIVE); PROTEIN,URINE NEGATIVE (NEGATIVE); RBC,URINE 0-2 /HPF; SQUAMOUS EPITHELIAL CELL,UR 0-2 /HPF; WBC,URINE RARE /HPF
[2019-11-24] MEDS ORDERED: inSUlin (REGULAR) HUMAN 1 UNIT/0.01 ML (CHARGE PER UNIT) IV STA (00:22)
[2019-11-24 00:26] LABS: AMPHETAMINE SCREEN, URINE NEGATIVE (NEGATIVE); BARBITURATE SCREEN URINE NEGATIVE (NEGATIVE); BENZODIAZEPINES SCREEN URINE NEGATIVE (NEGATIVE); CANNABINOID SCREEN, URINE POSITIVE (NEGATIVE); COCAINE SCREEN URINE NEGATIVE (NEGATIVE); METHADONE STAT NEGATIVE (NEGATIVE); METHAMPHETAMINE SCREEN URINE S NEGATIVE (NEGATIVE); OPIATE SCREEN URINE NEGATIVE (NEGATIVE); OXYCODONE STAT NEGATIVE (NEGATIVE); PROPOXYPHENE STAT NEGATIVE (NEGATIVE); TRICYCLIC ANTIDEPRESSANTS SCRE NEGATIVE (NEGATIVE)
[2019-11-24] MEDS ORDERED: VANCOMYCIN INJECTION 1,000 MG in NS (IVPB) 250 ML IV ONE (00:30)
[2019-11-24] MEDS ORDERED: NS IV 1000 ML 1,000 ML IV ONE (00:45)
--- NOTE | 2019-11-24 02:05 | NUR ---
LEONOR LAZARO admitted to room 405-1, with an admitting diagnosis of HYPERGLYCEMIA,ABCESS, ELECTROLYTE IMBALANCE on 11/24/19 from [facility] via [facility], accompanied by EMS STAFF.LEONOR LAZARO introduced to surroundings, call light, bed controls, phone, TV, temperature control, lights, meal times, smoking policy, visitor policy, side rail policy, bathrooms and showers. Patient Rights given to patient in the handbook. LEONOR LAZARO verbalizes understanding that [facility] is not responsible for the loss or damage to any personal effects or valuables that are kept in the patients posession during their hospitalization.
[2019-11-24] MEDS ORDERED: KETOROLAC 30 MG/ML VIAL IV PRN (02:30)
[2019-11-24] MEDS ORDERED: ONDANSETRON 4 MG/2 ML (SDV) Z0FRAN IV PRN (02:30)
[2019-11-24] MEDS: NS IV 1000 ML 1,000 ML IV SCH ×8 (02:40→11:09)
--- NOTE | 2019-11-24 04:13 | NUR ---
THIS RN ADDED TELESITTER TO PTS ROOM D/T IMPULSIVITY AND FALL RISK. HE IS A TWO PACK A DAY SMOKER AND DRINKS A LITER OF VODKA DAILY. DR NEWMAN NOTIFIED AND ORDERED [facility] SCALE AND TELEMETRY.
[2019-11-24] MEDS ORDERED: THIAMINE INJECTION 100 MG, FOLIC ACID INJECTION 1 MG, MAGNESIUM SULFATE 2 GM, VITAMIN M... IV SCH ×10 (04:25→09:00)
[2019-11-24] MEDS ORDERED: 1/2 NS IV SOLUTION 1,000 ML IV PRN (04:25)
[2019-11-24] MEDS ORDERED: D5 1/2 NS 1000 ML IV SOLUTION 1,000 ML IV PRN (04:30)
[2019-11-24] MEDS ORDERED: LORazepam INJ 2 MG/ML (ATIVAN) VIAL IV PRN (04:30)
[2019-11-24] MEDS ORDERED: LORazepam INJ 2 MG/ML (ATIVAN) VIAL IM/IV PRN (04:30)
[2019-11-24] MEDS ORDERED: SENNA W/DOCUSATE (SENOKOT S) TABLET PO PRN (04:30)
[2019-11-24] MEDS ORDERED: LORazepam 1 MG (ATIVAN) TAB PO PRN (04:30)
[2019-11-24] MEDS ORDERED: ANTACID SUSP 30 ML UDC (MYLANTA) PO PRN ×2 (04:30→11:30)
[2019-11-24] MEDS ORDERED: LORazepam INJ 2 MG/ML (ATIVAN) VIAL ONE (04:40)
[2019-11-24 05:37] LABS: BASOPHILS % (AUTO) 0 % (0-10); EOSINOPHILS # (AUTO) 0.1 10^3/uL (0.0-0.3); EOSINOPHILS % (AUTO) 1 % (0-10); HEMATOCRIT 37 % (40-54); HEMOGLOBIN 12.7 G/DL (13.3-17.7); LYMPHOCYTES % (AUTO) 30 % (12-44); MEAN CORPUSCULAR HEMOGLOBIN 31 PG (25-34); MEAN CORPUSCULAR HGB CONC 34 G/DL (32-36); MEAN CORPUSCULAR VOLUME 92 FL (80-99); MEAN PLATELET VOLUME 10.4 FL (7.4-10.4); MONOCYTES % (AUTO) 10 % (0-12); NEUTROPHILS # (AUTO) 5.8 X 10^3 (1.8-7.8); NEUTROPHILS % (AUTO) 58 % (42-75); PLATELET COUNT 268 10^3/uL (130-400); RED CELL DISTRIBUTION WIDTH 11.9 % (10.0-14.5); WHITE BLOOD COUNT 9.9 10^3/uL (4.3-11.0)
--- NOTE | 2019-11-24 05:43 | NUR ---
DURING PT'S ASSESSMENT THIS RN ASKED HIM ABOUT NICOTINE AND ALCOHOL USE. HE REPORTED THAT HE SMOKED 2 PACKS A DAY. THIS RN OFFERED HIM A NICOTINE PATCH AND HE TOLD THIS RN THAT THERE WAS NO REASON TO PUT A PATCH ON WHEN HE HAD CIGARETTES WITH HIS BELONGINGS. HE WAS REMINDED THAT THIS IS A NON SMOKING FACILITY AND THAT HE COULD SMOKE WHEN HE WAS DISCHARGED. HE ALSO TOLD THIS RN HE DRANK "A LITTLE" DAILY, WHICH AMOUNTED TO TWO MIXED DRINKS A DAY. HE REPORTED HE ONLY DRANK VODKA AND THAT HE ACTUALLY DRANK A LITER A DAY. HE WOULD NOT ADMIT TO DRINKING, BECAUSE HE DIDNT HAVE MONEY FOR HIS ALCOHOL FOR SEVERAL DAYS. AFTER ASSESSMENT WAS COMPLETED, THIS RN ASKED PCT, SAMULE, TO PLEASE GATHER HIS CIGARETTES AND WE WOULD LOCK THEM IN HIS APPLICATIONS SUPPORT LEAD ROOM. AT THE TIME I ASKED PCT TO DO THIS, PT WAS ASLEEP. SHE FOUND A BLACK BOX OF CIGARETTES, BRAND NAME KELLEN RED, A BLACK CAR RENTAL AGENT AND BLACK POCKET KNIFE. THIS NURSE PUT THEM IN A PLASTIC CLEAR BIOHAZARD BAG WITH A LABEL WITH HIS NAME, , AND MEDICAL NUMBER. WHEN PCT WAS PUTTING HIS THINGS BACK IN HIS CLOSET, PT WOKE UP AND BECAME BELIGERENT WITH STAFF. HE THREATENED TO LEAVE AND THEN DECIDED TO STAY. HIS MOOD ESCALATED THAT HOSIERY MATER NURSE, SALAZAR Rodriguez, STAMPING DIE MAKER, ANDER AND SECURITY CAME TO ROOM. ELECTRICAL LINESWORKER STAYED IN HALLWAY, WHILE NURSES ATTEMPTED TO RATIONALIZE WITH HIM REGARDING CIGARETTES, CAR RENTAL AGENT AND KNIFE. HE WAS ALSO ANGRY THAT HIS GATORADE WAS THROWN AWAY BY PCT. WE OFFERED TO BUY HIM GATORADE OR POWERADE OR ANY SODAS AVAILABLE. HE DID YELL AT STAFF AND REPORTED HIS GOD FATHER IS A PESTICIDE APPLICATOR AND WOULD HANDLE THIS FOR HIM. DURING THIS TIME HE DID SAY HE WAS GOING TO LEAVE, BUT CHANGED HIS MIND THAT HE WOULD STAY HERE UNTIL HIS GODFATHER/PESTICIDE APPLICATOR CAME TO VISIT. CIWA SCALE WAS DONE BY THIS RN AND HE SCORED HIGH ENOUGH FOR 2 MG OF ATIVAN. HOWEVER HE SAID THAT ATIVAN MADE HIM NAUSEATED AND HE HAD 2 BOTTLES OF IT AT HOME FROM WHEN HE WAS ON HOSPICE. BLOOD SUGAR WAS TAKEN AT THIS TIME AND READING WAS 174. STAMPING DIE MAKER, VIKTOR, ORDERED STAFF TO GET HIM A COLD TRAY OF FOOD. AT THIS TIME HE DID CALM DOWN AND HE REMAINS ASLEEP AT THIS TIME. WHEN THIS RN ATTEMPTED TO STORE BAG WITH CIGARETTES, CAR RENTAL AGENT AND KNIFE IN LOCKED APPLICATIONS SUPPORT LEAD ROOM, THE DRAWER WOULD NOT LOCK EVEN WHEN CODE WAS PUT IN CORRECTLY. VIKTOR NOTIFIED OF THIS AND TOLD THIS RN TO WRITE ON A PIECE OF PAPER WHAT WAS IN THE BAG AND THAT THE DRAWER WOULD NOT LOCK. ALSO SHE SAID TO HAVE ANOTHER RN SIGN OFF ON THE NOTE WELL, TAPE IT TO A MANILA ENVELOPE AND THEN LOCK IT UP IN THE MED ROOM IN CABINET THAT LOCKS UP PTS PERSONAL NARCOTIC MEDICATION. SALAZAR BIRD AND I DID THIS AND LOCKED IT IN SAID CABINET. AT THIS TIME HE IS STILL ASLEEP IN BED. WILL CONTINUE TO MONITOR.
[2019-11-24 06:00] LABS: ALANINE AMINOTRANSFERASE 31 U/L (0-55); ALBUMIN 3.2 GM/DL (3.2-4.5); ALKALINE PHOSPHATASE 86 U/L (40-136); BILIRUBIN,TOTAL 0.3 MG/DL (0.1-1.0); BUN/CREATININE RATIO 18; CALCIUM 8.1 MG/DL (8.5-10.1); CARBON DIOXIDE 22 MMOL/L (21-32); CHLORIDE 104 MMOL/L (98-107); CREATININE SERUM 0.72 MG/DL (0.60-1.30); GFR ESTIMATED > 60; GLUCOSE 165 MG/DL (70-105); POTASSIUM 3.9 MMOL/L (3.6-5.0); SODIUM 136 MMOL/L (135-145)
[2019-11-24] MEDS ORDERED: inSUlin ASPART (NovoLOG) 1 UNIT/0.01 ML (CHARGE PER UNIT) SC SCH (06:00)
--- NOTE | 2019-11-24 06:01 | NUR ---
ADDITIONALLY; WHEN THIS RN HAD SUMMONED ANOTHER RN TO ASSIST ME IN LOCKING COLLECTIVE BARGAINING SPECIALIST PTS ROOM, PT TOLD US HE DID NOT KNOW WHY WOULD BOTHER LOCKING HIS BELONGS IN THE DRAWER, HE WOULD JUST BREAK THE DRAWER OPEN ANYWAY. THE BELONGS HE WAS REFERRING TO WAS HIS CIGARETTES, BLACK MANUFACTURING INDUSTRIAL ENGINEER, AND BLACK POCKET KNIFE. THERE ARE 15 CIGARETTES COUNTED BY THIS RN AND RESTAURANT MANAGER RN, SALAZAR BIRD, AND IS LOCKED UP PREVIOUSLY NOTED, IN LOCKED CABINET IN MED ROOM.
--- NOTE | 2019-11-24 06:10 | NUR ---
DURING ASSESSMENT PT GAVE THIS RN A LIST OF PHONE NUMBERS THAT BELONG TO GISELA AND STEPHANIE MADISON AND TAMANNA COLON. THIS NURSE SUPERVISOR BLUEPRINTING AND PHOTOCOPY PUT THE NUMBERS IN [employer] UNDER CONTACTS. HE REPORTED HE ONLY WANTED THESE PEOPLE TO BE TOLD ABOUT HIS STATUS. HE WAS EDUCATED ON HAVING A PASSWORD AND PASSING THIS ON TO HIS PREFERRED CONTACTS IN ORDER FOR STAFF TO GIVE OUT HIS PRIVATE HEALTH INFO. HE STATED HE UNDERSTOOD AND CHOSE '[facility]' HIS PASSWORD. HE SHOWED MY SELF AND PCT A TATTOO ON HIS BACK THAT HAD THE TERM [facility] LOCATED. THIS RN HAS THE LIST OF THE PHONE NUMBERS OF HIS CONTACTS, AT THE BOTTOM OF THE PAPER IT STATES THAT STEPHANIE MADISON WILL CALL IN THE MORNING TO TALK TO A NURSE. THIS NURSE SUPERVISOR BLUEPRINTING AND PHOTOCOPY PLACED A PT LABEL TO THE PAPER AND IT IS NOT LOCATED IN HIS PAPER CHART.
--- NOTE | 2019-11-24 07:16 | Diagnostic Imaging Report ---
Indication: Chest pain. Comparison: 07/24/2019. Discussion: Single upright frontal view of the chest was obtained. Normal heart size. No focal consolidation, pleural fluid, or pneumothorax. No osseous abnormality. Impression: 1. Negative chest. Dictated by: Dictated on workstation # [id number]
[2019-11-24] MEDS: inSUlin ASPART (NovoLOG) 1 UNIT/0.01 ML (CHARGE PER UNIT) SC SCH ×4 (08:12→21:51)
[2019-11-24] MEDS: NICOTINE 21 MG (NICODERM) PATCH TD SCH (08:54)
--- NOTE | 2019-11-24 09:29 | Consultation - Surgery ---
ALICIA PUGH,MED STUDENT 11/24/19 0929: History of Present Illness History of Present Illness Patient Consulted On(rae/time) 11/24/19 09:19 Date Seen by Provider: Nov 24, 2019 Time Seen by Provider: 09:19 Reason for Visit: Left axilla abscess History of Present Illness Surgery consult by ED for possible I&D of Left axillary abscess Patient is a 49y/o male that presented to the ED last night with left axillary pain suggestive of hidradenitis suppurativa. Pain started 3 wks ago and has not improved. Pain is sharp and made worse with activity and improves with rest. Patient says that he has been scratching it and has tried to squeeze pus of it, but nothing has come out. Appears that patient has ruptured the lesion to the subcutaneous compartment. He has been on Keflex 500mg for 4 days. Patient was given 2g Rocephin in ED and give Clindamycin 300mg qid and instructed to follow up with Dr. Sanchez. Patient gave informed consent last night for I&D of left axial mass last night in the ED. Patient has poor hygiene and easy agitated. He threatened to leave AMA last night but has been peaceful and sleeping this morning according to nurse report. Allergies and Home Medications Allergies Coded Allergies: Penicillins (Unverified Adverse Reaction, Unknown, 07/22/19) Home Medications Gabapentin 100 Mg Capsule, 100 MG PO BID Prescribed by: GARCIA HUSTON on 08/01/19838 Lorazepam 2 Mg/1 Ml Oral.conc, 0 MG PO Q2H PRN for ANXIETY Prescribed by: GARCIA HUSTON on 08/01/19838 Morphine Sulfate 100 Mg/5 Ml Solution, 10 MG PO Q4H PRN for PAIN-SEVERE Prescribed by: GARCIA HUSTON on 08/01/19838 [Bisacodyl] 10 MG SUPP, 10 MG HI DAILY PRN for Constipation-Comfort Care Prescribed by: GARCIA HUSTON on 08/01/19 08 Past Pkyuxzh-Egcphm-Mdlvxt Hx Patient Social History Alcohol Use: Denies Use Recreational Drug Use: Yes (Previous Meth use) Drug of Choice: Marijuana, Hx of methamphetamine use Smoking Status: Current Everyday Smoker Type Used: Cigarettes 2nd Hand Smoke Exposure: No Recent Foreign Travel: Yes Contact w/Someone Who Travel: Yes Recent Infectious Disease Expo: No Recent Hopitalizations: Yes Seasonal Allergies Seasonal Allergies: No Surgeries History of Surgeries: No Surgeries: Cardiac (open heart surgery ) Respiratory History of Respiratory Disorde: No Cardiovascular History of Cardiac Disorders: Yes (heart surgery at 16mo for hole in heart) Cardiac Disorders: Heart Attack Neurological History of Neurological Disord: No Genitourinary History of Genitourinary Disor: No Gastrointestinal History of Gastrointestinal Di: No Musculoskeletal History of Musculoskeletal Dis: No Endocrine History of Endocrine Disorders: Yes Endocrine Disorders: Diabetes, Non-Insulin dep HEENT History of HEENT Disorders: No Cancer History of Cancer: No Psychosocial History of Psychiatric Problem: Yes (substance abuse ) Behavioral Health Disorders: Anxiety Integumentary History of Skin or Integumenta: No Family Medical History Significant Family History: Other Conditions/Hx (Denies having any knowledge of Family medicial history ) Review of Systems-General Constitutional: No chills, No fever, No malaise, No weakness EENTM: No mouth pain, No mouth swelling, No throat pain, No throat swelling Respiratory: No cough, No dyspnea on exertion, No phlegm Cardiovascular: No edema Gastrointestinal: No abdominal pain, No constipation, No diarrhea, No dysphagia Genitourinary: No dysuria, No frequency, No hematuria Musculoskeletal: back pain, muscle stiffness (in the left axillary region ), other (Pain in Left axilla) Skin: lesions (excoritated lesion is Left axilla ), lumps (Left axilla ) Psychiatric/Neurological: Denies Headache; Numbness (b/l lower extremities ), Tingling (b/l lower extremities ) Physical Exam-General Problems Physical Exam Vital Signs Vital Signs - First Documented 11/23/19 23:38 Temp 36.5 Pulse 106 Resp 18 B/P (MAP) 136/84 (101) Pulse Ox 98 O2 Delivery Room Air Capillary Refill : Less Than 3 Seconds General Appearance: WD/WN, no apparent distress, thin HEENT: PERRL/EOMI; No scleral icterus (R), No pale conjunctivae (R), No pale conjunctivae (L) Respiratory: lungs clear, no respiratory distress, no accessory muscle use, wheezing Cardiovascular: regular rate, rhythm, no edema, systolic murmur Gastrointestinal: non tender, soft, no organomegaly, no pulsatile mass; No distended Extremities: no pedal edema, no calf tenderness, inflammation, swelling, other (inflammation and swelling in the left axilla ) Neurologic/Psychiatric: alert, normal mood/affect, oriented x 3 Skin: normal color, warm/dry, other (erythemic and excoriated mass in the left axilla that is tender to palpation ), tattoos/piercings Data Review Labs Laboratory Tests 11/23/19 23:17: White Blood Count 11.3H, Red Blood Count 4.76, Hemoglobin 15.4, Hematocrit 44, Mean Corpuscular Volume 92, Mean Corpuscular Hemoglobin 32, Mean Corpuscular Hemoglobin Concent 35, Red Cell Distribution Width 11.5, Platelet Count 340, Mean Platelet Volume 10.0, Neutrophils (%) (Auto) 67, Lymphocytes (%) (Auto) 22, Monocytes (%) (Auto) 9, Eosinophils (%) (Auto) 1, Basophils (%) (Auto) 0, Neutrophils # (Auto) 7.6, Lymphocytes # (Auto) 2.5, Monocytes # (Auto) 1.0, Eosinophils # (Auto) 0.1, Basophils # (Auto) 0.0, Sodium Level 130L, Potassium Level 5.2H, Chloride Level 90L, Carbon Dioxide Level 28, Anion Gap 12, Blood Urea Nitrogen 10, Creatinine 0.71, Estimat Glomerular Filtration Rate > 60, BUN/Creatinine Ratio 14, Glucose Level 493*H, Calcium Level 9.7, Corrected Calcium 9.6, Total Bilirubin 0.4, Aspartate Amino Transf (AST/SGOT) 31, Alanine Aminotransferase (ALT/SGPT) 41, Alkaline Phosphatase 131, Total Protein 7.7, Albumin 4.1 11/24/19 00:01: Lactic Acid Level 1.67 11/24/19 00:22: Glucometer 402*H 11/24/19 04:12: Glucometer 179H 11/24/19 04:13: White Blood Count 9.9, Red Blood Count 4.04L, Hemoglobin 12.7L, Hematocrit 37L, Mean Corpuscular Volume 92, Mean Corpuscular Hemoglobin 31, Mean Corpuscular Hemoglobin Concent 34, Red Cell Distribution Width 11.9, Platelet Count 268, Mean Platelet Volume 10.4, Neutrophils (%) (Auto) 58, Lymphocytes (%) (Auto) 30, Monocytes (%) (Auto) 10, Eosinophils (%) (Auto) 1, Basophils (%) (Auto) 0, Neutrophils # (Auto) 5.8, Lymphocytes # (Auto) 3.0, Monocytes # (Auto) 1.0, Eosinophils # (Auto) 0.1, Basophils # (Auto) 0.0, Sodium Level 136, Potassium Level 3.9, Chloride Level 104, Carbon Dioxide Level 22, Anion Gap 10, Blood Urea Nitrogen 13, Creatinine 0.72, Estimat Glomerular Filtration Rate > 60, BU N/Creatinine Ratio 18, Glucose Level 165H, Calcium Level 8.1L, Corrected Calcium 8.7, Total Bilirubin 0.3, Aspartate Amino Transf (AST/SGOT) 26, Alanine Aminotransferase (ALT/SGPT) 31, Alkaline Phosphatase 86, Total Protein 6.0L, Albumin 3.2, Serum Alcohol < 10 11/24/19 07:46: Glucometer 338H Assessment/Plan Assessment/Plan Assessment/Plan Left axillary mass Hyperglycemia d/t to unmanaged diabetes mellitus Continue to abx, consider I&D once patient blood sugar is below 200 and patient still consents. Clinical Quality Measures DVT/VTE Risk/Contraindication: Risk Factor Score Per Nursin RFS Level Per Nursing on Admit: 3=High Pneumonia: Pseudomonal Risk: Other (IDU hx) SHENG CAROLINA DO 11/24/19 1201: History of Present Illness History of Present Illness Time Seen by Provider: 11:24 History of Present Illness Pt seen and examined, states he is doing ok. Pt reports hx of MRSA and pointed out scab on back that he states started out like his axillary abscess. Allergies and Home Medications Allergies Coded Allergies: Penicillins (Unverified Adverse Reaction, Unknown, 07/22/19) Home Medications Gabapentin 100 Mg Capsule, 100 MG PO BID Prescribed by: GARCIA HUSTON on 08/01/19 0839 Lorazepam 2 Mg/1 Ml Oral.conc, 0 MG PO Q2H PRN for ANXIETY Prescribed by: GARCIA HUSTON on 08/01/19 0839 Morphine Sulfate 100 Mg/5 Ml Solution, 10 MG PO Q4H PRN for PAIN-SEVERE Prescribed by: GARCIA HUSTON on 08/01/19 0839 [Bisacodyl] 10 MG SUPP, 10 MG HI DAILY PRN for Constipation-Comfort Care Prescribed by: GARCIA HUSTON on 08/01/19 0839 Patient Home Medication List Home Medication List Reviewed: Yes Past Fzcjizv-Gdunhb-Ilgdta Hx Family Medical History Significant Family History: Other Conditions/Hx (Denies having any knowledge of Family medicial history, secondary to adoption) Physical Exam-General Problems Physical Exam Skin: other (erythemic and excoriated mass in the left axilla that is tender to palpation, minimal erythema does not extend more than 1cm from small lump) Assessment/Plan Assessment/Plan Assessment/Plan Left Axillary Abscess Will place pt in isolation because of hx of MRSA, will switch ABX until we get a culture result and will have pt do warm compresses to the axillary area. There does not appear to be anything to I&D at this time, will monitor. Supervisory-Addendum Brief Verification & Attestation Participated in pt care: history, MDM, physical Personally performed: exam, history, MDM Care discussed with: Medical Student Procedures: n/a Verification and Attestation of Medical Student E/M Service A medical student performed and documented this service in my presence. I reviewed and verified all information documented by the medical student and made modifications to such information, when appropriate. I personally performed the physical exam and medical decision making. Sheng Carolina, Nov 24, 2019,12:01 ALICIA PUGH,MED STUDENT Nov 24, 2019 09:29 SHENG CAROLINA DO Nov 24, 2019 12:01
[2019-11-24] MEDS ORDERED: LORazepam 0.5 MG (ATIVAN) TABLET PO PRN (11:15)
[2019-11-24] MEDS ORDERED: BISACODYL 10 MG SUPP (DULCOLAX) PR PRN (11:30)
[2019-11-24] MEDS ORDERED: MELATONIN 3 MG TABLET PO PRN (11:30)
[2019-11-24] MEDS ORDERED: VANCOMYCIN INJECTION 0.1 MG in NS (IVPB) 250 ML IV SCH (11:30)
[2019-11-24] MEDS ORDERED: POLYETHYLENE GLYCOL 17 GM (MIRALAX) PACK PO PRN (11:30)
[2019-11-24] MEDS ORDERED: ACETAMINOPHEN 325 MG TABLET PO PRN (11:30)
[2019-11-24] MEDS ORDERED: diphenhydrAMINE 25 MG TAB (BENADRYL) PO PRN (11:30)
[2019-11-24] MEDS ORDERED: ONDANSETRON 4 MG (ZOFRAN) ORAL DISSOLVE TAB PO PRN (11:30)
--- NOTE | 2019-11-24 11:33 | NUR ---
CR 0.72; CR CL > 60; WT 75.4 KG; VANCO 2000 MG IV BOLUS THEN 1250 MG IV Q12H; TROUGH AFTER 4TH DOSE
--- NOTE | 2019-11-24 11:36 | History & Physical-Hospitalist ---
History of Present Illness HPI/Chief Complaint Ori Joseph is a 49-year-old male with past medical history of methamphetamine abuse, tobacco abuse, nonischemic cardiomyopathy, paroxysmal atrial fibrillation, uncontrolled type II diabetes mellitus, who presented with pain and swelling in his left axilla. He is unsure of how long as is been present. He has not been on any antibiotics for it. He has not seen a doctor. He does not take any medications regularly. He denies any fevers or chills. He denies any chest pain or shortness of breath. He denies any abdominal pain, nausea, vomiting, or diarrhea. He also has an abscess on his back/left shoulder. He denies any recent drug use. He says he has not used methamphetamine since before he was in the hospital a few months ago. He says that he has been smoking marijuana. He denies drinking daily, but says he does drink occasionally. Source: patient Exam Limitations: no limitations Date Seen 11/24/19 Time Seen by a Provider: 08:30 Attending Physician Floridalma Newman MD PCP No,Local Physician Referring Physician Date of Admission Nov 24, 2019 at 01:05 Home Medications & Allergies Home Medications Reviewed patient Home Medication Reconciliation performed by pharmacy medication reconciliations coroner forensic technician and/or nursing. Patients Allergies have been reviewed. Allergies Allergies Coded Allergies Penicillins (Unverified Adverse Reaction, Unknown, 07/22/19) Past Bcmadbb-Xzttba-Slaurp Hx Past Med/Social Hx: Reviewed Nursing Past Med/Soc Hx Patient Social History Alcohol Use: Denies Use Recreational Drug Use: Yes (Previous Meth use) Drug of Choice: Marijuana, Hx of methamphetamine use Smoking Status: Current Everyday Smoker Type Used: Cigarettes 2nd Hand Smoke Exposure: No Recent Foreign Travel: Yes Contact w/other who traveled: Yes Recent Hopitalizations: Yes Recent Infectious Disease Expo: No Seasonal Allergies Seasonal Allergies: No Past Medical History Surgeries: Cardiac (open heart surgery ) Cardiac: Heart Attack Endocrine: Diabetes, Non-Insulin dep Psychosocial: Anxiety Family History Other Conditions/Hx (Denies having any knowledge of Family medicial history ) Review of Systems Constitutional: no symptoms reported EENTM: no symptoms reported Respiratory: no symptoms reported Cardiovascular: no symptoms reported Gastrointestinal: no symptoms reported Genitourinary: no symptoms reported Musculoskeletal: no symptoms reported Skin: lesions, lumps Psychiatric/Neurological: No Symptoms Reported Physical Exam Physical Exam Vital Signs Vital Signs - First Documented 11/23/19 23:38 Temp 36.5 Pulse 106 Resp 18 B/P (MAP) 136/84 (101) Pulse Ox 98 O2 Delivery Room Air Capillary Refill : Less Than 3 Seconds Height, Weight, BMI Height: '" Weight: 192lbs. 4.0oz. 87.374562sw; 21.91 BMI Method: General Appearance: No Apparent Distress, WD/WN, Other (Poor hygiene) HEENT: PERRL/EOMI, Pharynx Normal Neck: Normal Inspection, Supple Respiratory: Lungs Clear, Normal Breath Sounds, No Respiratory Distress Cardiovascular: Regular Rate, Rhythm, No Edema, No Murmur Gastrointestinal: Normal Bowel Sounds, Non Tender, Soft Extremity: Normal Inspection, Non Tender, No Pedal Edema Neurologic/Psychiatric: Alert, Oriented x3, No Motor/Sensory Deficits, Depressed Affect Skin: Other (Left axilla lesion with surrounding erythema, left back/shoulder lesion) Results Results/Procedures Labs Laboratory Tests 11/23/19 23:17 11/24/19 04:13 Patient resulted labs reviewed. Assessment/Plan Admission Diagnosis Hidradenitis supportiva Admission Status: Inpatient Order (span 2 midnights) Reason for Inpatient Admission: Abscess requiring surgical drainage and IV antibiotics Assessment and Plan Hidradenitis supportiva Left axillary lesion lanced in [place] emergency room Started on vancomycin and ceftriaxone Continue vancomycin Surgery consulted, may perform further I&D when blood sugars better controlled Type II diabetes mellitus Not taking any home meds Last A1c 10.2 Repeat A1c Begin metformin Begin Levemir Sliding scale insulin ordered Nonischemic cardiomyopathy Paroxysmal atrial fibrillation Previous hospitalization resulted in discharge on hospice Not currently on anticoagulation We will schedule follow up with cardiology on discharge Tobacco abuse Nicotine patch Marijuana abuse Recommend cessation Methamphetamine abuse Recommend continued cessation DVT prophylaxis: Ambulation Diagnosis/Problems Diagnosis/Problems (1) Hidradenitis suppurativa of left axilla Status: Acute (2) Hyperglycemia due to type 2 diabetes mellitus Status: Acute Qualifiers: Diabetes mellitus exterminator insulin use: without exterminator use Qualified Codes: E11.65 - Type 2 diabetes mellitus with hyperglycemia Clinical Quality Measures DVT/VTE Risk/Contraindication: Risk Factor Score Per Nursin RFS Level Per Nursing on Admit: 3=High Pneumonia: Pseudomonal Risk: Other (IDU hx) FLORIDALMA NEWMAN MD Nov 24, 2019 11:36
[2019-11-24] MEDS ORDERED: NICOTINE 2 MG LOZENGE (COMMIT) MM PRN (11:45)
[2019-11-24] MEDS ORDERED: NICOTINE 2 MG GUM (NICORETTE) PO PRN (11:45)
[2019-11-24] MEDS ORDERED: VANCOMYCIN 2000 MG/NS 500 ML IVPB IV NR ×2 (11:45)
[2019-11-24] MEDS: metFORMIN 500 MG (GLUCOPHAGE) TAB PO NR ×2 (11:57→12:02)
--- NOTE | 2019-11-24 12:00 | NUR ---
WARM COMPRESS APPLIED TO LEFT AXILLARY.
--- NOTE | 2019-11-24 14:57 | NUR ---
PAIN REASSESSMENT FROM OXYIR AND TYLENOL. PATIENT REPORTED PAIN ABOUT THE SAME. TORADOL OFFERED. PATIENT REFUSED TORADOL. HE STATED IT DIDN'T REALLY HELP. HE STATED THE WARM COMPRESS HELPED FOR A LITTLE WHILE BUT HE DOESN'T WANT TO PUT ANOTHER ONE ON RIGHT NOW.
[2019-11-24] MEDS ORDERED: metFORMIN 500 MG (GLUCOPHAGE) TAB PO SCH (17:00)
[2019-11-24] MEDS: DOCUSATE SODIUM 100 MG (COLACE) CAP PO SCH (21:52)
[2019-11-24] MEDS: SENNOSIDES 8.6 MG (SENOKOT) TAB PO SCH (21:53)
[2019-11-25] MEDS: VANCOMYCIN 1250 MG/NS 250 ML IVPB IV SCH ×4 (00:39→14:12)
[2019-11-25 04:18] VITALS: BP 112/68
[2019-11-25] MEDS: inSUlin ASPART (NovoLOG) 1 UNIT/0.01 ML (CHARGE PER UNIT) SC SCH ×2 (06:17→10:58)
[2019-11-25 08:07] VITALS: BP 139/75
--- NOTE | 2019-11-25 08:51 | Progress Note - Surgery ---
ALICIA PUGH,MED STUDENT 11/25/19 0851: Subjective Date Seen by a Provider: Nov 25, 2019 Time Seen by a Provider: 08:21 Subjective/Events-last exam Patient seen and examined. There is a new indurated area in the Left axillary region that is painful to palpation. Today, patient is agitated because he wants to smoke a cigarette and is told that he cannot smoke because of hospital policies. He has an admitted history of IV drug use and currently has an IV in his right wrist. He is threatening to leave AMA so he can go smoke a cigarette. Review of Systems General: No Chills, No Fatigue; Appetite HEENT: No Head Aches, No Dysphasia Pulmonary: No Dyspnea, No Cough Cardiovascular: Chest Pain (Around the Right SC joint, has had for 3wks ) Gastrointestinal: No: Nausea, Vomiting, Abdominal Pain Musculoskeletal: shoulder pain (On Left and in axillary region ) Focused Exam Lactate Level 11/24/19 00:01: Lactic Acid Level 1.67 Objective Exam Vital Signs Date Time Temp Pulse Resp B/P (MAP) Pulse Ox O2 Delivery O2 Flow Rate FiO2 11/25/19 08:07 36.5 91 20 139/75 (96) 97 Room Air 11/25/19 04:18 36.6 78 18 112/68 (83) 97 Room Air 11/24/19 23:50 36.4 74 18 116/61 (79) 96 Room Air 11/24/19 20:35 36.8 71 20 123/77 (92) 97 Room Air 11/24/19 20:00 96 Room Air 11/24/19 16:00 37.2 74 20 130/78 (95) 99 Room Air 11/24/19 13:00 91 11/24/19 12:00 36.6 95 20 127/74 (91) 98 Room Air I & O 11/25/19 07:00 Intake Total 3160 ml Output Total 3550 ml Balance -390 ml Capillary Refill : Less Than 3 Seconds General Appearance: No Apparent Distress, WD/WN, Other (Poor hygiene) HEENT: PERRL/EOMI, Pharynx Normal Neck: Normal Inspection, Supple Respiratory: No Accessory Muscle Use, No Respiratory Distress Cardiovascular: Regular Rate, Rhythm, No Edema, Systolic Murmur Peripheral Pulses: 2+ Left Dors-Pedis (L), 2+ Radial Pulses (R), 2+ Radial Pulses (L) Gastrointestinal: non tender, soft, no organomegaly, no pulsatile mass; No distended Extremity: Non Tender, No Calf Tenderness, No Pedal Edema Neurologic/Psychiatric: Alert, Oriented x3, Other (Agitated) Skin: Normal Color, Warm/Dry, Other (Left axilla lesion with surrounding erythema, left back/shoulder lesion) Results Lab Laboratory Tests 11/24/19 11:07: Glucometer 377H 11/24/19 14:26: Glucometer 210H 11/24/19 21:11: Glucometer 184H 11/25/19 06:16: Glucometer 107 Microbiology 11/23/19 Gram Stain, Resulted Pending 11/23/19 Wound Culture - Preliminary, Resulted Staphylococcus aureus Assessment/Plan Assessment/Plan Assessment/Plan Left Axillary Abscess X2 pt in isolation because of hx of MRSA, cultures were positive for Staph. Aureus but MRSA/MSSA sensitive is pending. Receiving Vancomycin until we get a culture result and will have pt do warm compresses to the axillary area. New indurated and painful area in the left axilla. Will need patient consent if we want to I&D. If patient leaves AMA, he has a prescription for clindamycin QID from ER, which has good coverage of MRSA. Clinical Quality Measures DVT/VTE Risk/Contraindication: Risk Factor Score Per Nursin RFS Level Per Nursing on Admit: 3=High Pneumonia: Pseudomonal Risk: Other (IDU hx) WADE MARQUEZ DO 11/25/19 1634: Subjective Time Seen by a Provider: 16:05 Subjective/Events-last exam Pt seen and examined, states he thinks he has another one. Objective Exam Neurologic/Psychiatric: Other (Agitated) Skin: Other (Left axilla lesion with very minimal surrounding erythema, appears to be 1-2 firm lumps below the one that was opened but no erythema over them and they do not feel fluctuant) Assessment/Plan Assessment/Plan Assessment/Plan Plan continue warm compresses and ABX, pt can go home and follow up as an outpt. Supervisory-Addendum Brief Verification & Attestation Participated in pt care: history, MDM, physical Personally performed: exam, history, MDM Care discussed with: Medical Student Procedures: n/a Verification and Attestation of Medical Student E/M Service A medical student performed and documented this service in my presence. I reviewed and verified all information documented by the medical student and made modifications to such information, when appropriate. I personally performed the physical exam and medical decision making. Wade Marquez, Nov 25, 2019,16:33 ALICIA PUGH,MED STUDENT Nov 25, 2019 08:51 WADE MARQUEZ DO Nov 25, 2019 16:34
[2019-11-25] MEDS: DOCUSATE SODIUM 100 MG (COLACE) CAP PO SCH (09:25)
[2019-11-25] MEDS: SENNOSIDES 8.6 MG (SENOKOT) TAB PO SCH (09:25)
[2019-11-25] MEDS: NICOTINE 21 MG (NICODERM) PATCH TD SCH (09:26)
--- NOTE | 2019-11-25 10:26 | NUR ---
SPOKE WITH PT WELL GOING OVER THE EXT MED HISTORY AND CALLING [facility] TO COMPLETE THE MED REC. PT SAID HE DOES NOT TAKE ANY MEDICATIONS PRESCRIPTION OR OTHER [place]. WHEN I INQUIRED ABOUT MEDS I COULD SEE THAT WERE FILLED AT [facility] (MORPHINE AND LORAZEPAM) HE SAID HE HAS MULTIPLE BOTTLES OF EACH AT HOME BUT DOES NOT TAKE THEM BC THEY UPSET HIS STOMACH. I TOOK EVERYTHING OFF THE MED REC AND UPDATED HIS PREFERRED PHARMACY.
[2019-11-25 12:00] VITALS: BP 137/74
--- NOTE | 2019-11-25 13:51 | Progress Note - Hospitalist ---
Subjective HPI/CC On Admission Date Seen by Provider: Nov 25, 2019 Time Seen by Provider: 08:10 Ori Joseph is a 49-year-old male with past medical history of methamphetamine abuse, tobacco abuse, nonischemic cardiomyopathy, paroxysmal atrial fibrillation, uncontrolled type II diabetes mellitus, who presented with pain and swelling in his left axilla. He is unsure of how long as is been present. He has not been on any antibiotics for it. He has not seen a doctor. He does not take any medications regularly. He denies any fevers or chills. He denies any chest pain or shortness of breath. He denies any abdominal pain, nausea, vomiting, or diarrhea. He also has an abscess on his back/left shoulder. He denies any recent drug use. He says he has not used methamphetamine since before he was in the hospital a few months ago. He says that he has been smoking marijuana. He denies drinking daily, but says he does drink occasionally. Subjective/Events-last exam he is agitated this morning. He says he wants to go outside to smokes cigarettes. He reports more swelling in his left axilla. He has no other complaints or concerns. Focused Exam Lactate Level 11/24/19 00:01: Lactic Acid Level 1.67 Objective Exam Vital Signs Vital Signs Date Time Temp Pulse Resp B/P (MAP) Pulse Ox O2 Delivery O2 Flow Rate FiO2 11/25/19 08:07 36.5 91 20 139/75 (96) 97 Room Air Capillary Refill : Less Than 3 Seconds General Appearance: No Apparent Distress, WD/WN, Other (poor hygiene) HEENT: PERRL/EOMI, Pharynx Normal Neck: Normal Inspection, Supple Respiratory: Lungs Clear, Normal Breath Sounds, No Respiratory Distress Cardiovascular: Regular Rate, Rhythm, No Edema, No Murmur Gastrointestinal: Normal Bowel Sounds, Non Tender, Soft Extremity: Normal Inspection, Non Tender, No Pedal Edema Neurologic/Psychiatric: Alert, Oriented x3, No Motor/Sensory Deficits, Normal Mood/Affect Skin: Other (axillary lesion) Results/Procedures Lab Patient resulted labs reviewed. Assessment/Plan Assessment and Plan Assess & Plan/Chief Complaint Hidradenitis supportiva Continue vancomycin Surgery consulted, may perform further I&D Type II diabetes mellitus A1c 11.9% continue Levemir add mealtime insulin Sliding scale insulin ordered Nonischemic cardiomyopathy Paroxysmal atrial fibrillation Previous hospitalization resulted in discharge on hospice Not currently on anticoagulation We will schedule follow up with cardiology on discharge Tobacco abuse Nicotine patch Marijuana abuse Recommend cessation Methamphetamine abuse Recommend continued cessation DVT prophylaxis: Lovenox Diagnosis/Problems Diagnosis/Problems (1) Hidradenitis suppurativa of left axilla Status: Acute (2) Hyperglycemia due to type 2 diabetes mellitus Status: Acute Qualifiers: Diabetes mellitus nursing home insulin use: without nursing home use Qualified Codes: E11.65 - Type 2 diabetes mellitus with hyperglycemia Clinical Quality Measures DVT/VTE Risk/Contraindication: Risk Factor Score Per Nursin RFS Level Per Nursing on Admit: 3=High Pneumonia: Pseudomonal Risk: Other (IDU hx) VIELKA NEWMAN MD Nov 25, 2019 13:51
[2019-11-25] MEDS ORDERED: inSUlin ASPART (NovoLOG) 1 UNIT/0.01 ML (CHARGE PER UNIT) SC SCH ×2 (14:30→17:00)
[2019-11-25 15:34] VITALS: BP 129/76
[2019-11-25] MEDS ORDERED: DOXY100C2 PO (16:33)
--- NOTE | 2019-11-25 17:21 | Discharge Summary ---
Discharge Summary Hospital Course Was the Problem List Reviewed?: Yes Problems/Dx: (1) Hidradenitis suppurativa of left axilla Status: Acute (2) Hyperglycemia due to type 2 diabetes mellitus Status: Acute Qualifiers: Qualified Codes: E11.65 - Type 2 diabetes mellitus with hyperglycemia Hospital Course Date of Admission: Nov 24, 2019 at 01:05 Admission Diagnosis : hidradenitis suppurativa of left axilla Family Physician/Provider: No,Local Physician Date of Discharge: 11/25/19 Discharge Diagnosis: hidradenitis suppurativa of left axilla Hospital Course: Ori Joseph is a 49-year-old male who presented with left axillary pain and swelling and was admitted with hidradenitis suppurativa of the left axilla. He underwent and incision and drainage in the emergency room at [facility]. Upon arrival he was started on vancomycin. He was stabilized and discharged on doxycycline. He should follow-up with surgery in about a month. During her previous admission he was diagnosed with heart failure with reduced ejection fraction and paroxysmal atrial fibrillation. He was discharged at that time on hospice but is now graduated off of hospice. I will schedule a follow-up with cardiology in about 2 weeks. Labs and Pending Lab Test: Laboratory Tests 11/24/19 21:11: Glucometer 184H 11/25/19 06:16: Glucometer 107 11/25/19 09:56: Glucometer 366H 11/25/19 15:23: Glucometer 100 Microbiology 11/23/19 Gram Stain, Resulted Pending 11/23/19 Wound Culture - Preliminary, Resulted Staphylococcus aureus Home Meds Active Doxycycline Hyclate 100 Mg Capsule 100 Mg PO BID 7 Days Assessment/Pt Instructions Take medications as prescribed. Complete her course of antibiotics even if you're feeling better. Follow up with surgery. Follow up with cardiology. Re turn with worsening pain, fevers, or if you feel like you're getting worse Discharge Planning: <30 minutes discharge planning Discharge Instructions Discharge Diet: No Restrictions Activity as Tolerated: Yes Pneumonia Vaccine Order Indica: Yes Discharge Physical Examination Vital Signs Vital Signs Date Time Temp Pulse Resp B/P (MAP) Pulse Ox O2 Delivery O2 Flow Rate FiO2 11/25/19 15:34 36.8 75 20 129/76 (93) 100 Room Air Allergies: Coded Allergies: Penicillins (Unverified Adverse Reaction, Unknown, 07/22/19) Copy Copies To 1: Mendoza SALAZAR MD Discharge Summary Date of Admission Nov 24, 2019 at 01:05 Date of Discharge Discharge Date: Nov 25, 2019 Discharge Time: 17:19 Admission Diagnosis Hidradenitis suppurativa Consults/Procedures Consulations general surgery Discharge Diagnosis Hidradenitis suppurativa (1) Hidradenitis suppurativa of left axilla Status: Acute (2) Hyperglycemia due to type 2 diabetes mellitus Status: Acute Qualifiers: Qualified Codes: E11.65 - Type 2 diabetes mellitus with hyperglycemia Clinical Quality Measures DVT/VTE Risk/Contraindication: Risk Factor Score Per Nursin RFS Level Per Nursing on Admit: 3=High Pneumonia: Pseudomonal Risk: Other (IDU hx) VIELKA NEWMAN MD Nov 25, 2019 17:21
[2019-11-25] MEDS ORDERED: INSU100I10 SQ (17:22)
[2019-11-25 17:45] VITALS: BP 129/76
[2019-11-26] MEDS ORDERED: TROUGH ORDER-PHARMACY XX NR (11:00)
== END 2019-11-25 17:50 | disposition home or self-care (01) | DRG 603 ==
LOC: EDUNIT# 22:43 → ER FS 22:48 → 4TH 11-24 01:05
PROVIDERS: ADMIT Internal Medicine; ATTEND Internal Medicine
PROC: 0H9CXZZ Drainage of Left Upper Arm Skin, External Approach (ICD-10-PCS; principal; 2019-11-23)
DX: L02.412 Cutaneous abscess of left axilla (principal); L02.213 Cutaneous abscess of chest wall; L73.2 Hidradenitis suppurativa; L03.313 Cellulitis of chest wall; E87.1 Hypo-osmolality and hyponatremia; F15.20 Other stimulant dependence, uncomplicated; I42.8 Other cardiomyopathies; L02.212 Cutaneous abscess of back [any part, except buttock and flank]; L02.422 Furuncle of left axilla; E11.65 Type 2 diabetes mellitus with hyperglycemia; B95.7 Other staphylococcus as the cause of diseases classified elsewhere; I25.2 Old myocardial infarction; F12.10 Cannabis abuse, uncomplicated; J44.9 Chronic obstructive pulmonary disease, unspecified; I48.0 Paroxysmal atrial fibrillation; F17.210 Nicotine dependence, cigarettes, uncomplicated; F41.9 Anxiety disorder, unspecified; F32.9 Major depressive disorder, single episode, unspecified; Z87.74 Personal history of (corrected) congenital malformations of heart and circulatory system; Z86.14 Personal history of Methicillin resistant Staphylococcus aureus infection; Z88.0 Allergy status to penicillin
CPT/HCPCS: 10060; 36415; 71045; 80053; 80306; 80320; 81000; 82962; 83036; 83605; 85007; 85025; 87040; 87070; 87077; 87186; 87205

== ENCOUNTER 2019-11-28 12:44 | Emergency (ER) | payer MEDICAID ==
[~2019-11-28] VITALS: Ht 193 cm; Wt 72.7 kg
[~2019-11-28 12:44] MED LIST changes: +DOXY100C2 PO; +INSU100I10 SQ
[2019-11-28] MEDS ORDERED: NS IV 1000 ML 1,000 ML IV STA ×2 (13:03→15:41)
[2019-11-28] MEDS ORDERED: ONDANSETRON 4 MG/2 ML (SDV) Z0FRAN IVP STA (13:03)
[2019-11-28] MEDS ORDERED: PANTOPRAZOLE 40 MG (PROTONIX) VIAL IV STA (13:03)
--- NOTE | 2019-11-28 13:03 | ED Chest Pain ---
General Chief Complaint: Chest Pain Stated Complaint: CHEST PAIN; NAUSEA Source: patient History of Present Illness Date Seen by Provider: Nov 28, 2019 Time Seen by Provider: 12:44 Initial Comments 49-year-old male presenting with complaints of substernal and epigastric chest pain. It is sharp in nature. His back constant since last night. He was just released from the hospital 2 days ago after being admitted for an abscess under his left arm. He has been having hot and cold flashes. He has nausea to the point he has not been able to drink. He did take his insulin but feels like it is making him sick. He was just started on insulin when he was in the hospital. He is a smoker and is coughing. He felt like the pain got worse after he took the doxycycline antibiotic but he also took at the same time as his insulin so he wasn't sure what had caused the pain. Allergies and Home Medications Allergies Coded Allergies: Penicillins (Unverified Adverse Reaction, Unknown, 07/22/19) Home Medications Insulin Glargine,Hum.rec.anlog 100 Unit/1 Ml Insuln.pen, 20 UNIT SQ HS Prescribed by: VIELKA NEWMAN on 11/25/191721 Ranitidine HCl 150 Mg Tablet, 150 MG PO BID Prescribed by: ALYSIA GERARD on 11/28/191746 Sulfamethoxazole/Trimethoprim 1 Each Tablet, 1 EACH PO BID Prescribed by: ALYSIA GERARD on 11/28/191746 Patient Home Medication List Home Medication List Reviewed: Yes Review of Systems Review of Systems Constitutional: chills, fever (subjective) EENTM: No Symptoms Reported Respiratory: Cough (intermittent, non productive) Cardiovascular: Chest Pain (epigastric and substernal, reproducible with palpation) Gastrointestinal: Abdominal Pain (epigastric), Nausea, Vomiting (dry heaves) Genitourinary: No Symptoms Reported Musculoskeletal: muscle pain (pain under left arm where he has abscess) Skin: other (abscess under left arm) Psychiatric/Neurological: Anxiety Past Jfnjewo-Rvegzk-Uywsln Hx Past Med/Social Hx: Reviewed Nursing Past Med/Soc Hx Patient Social History Drug of Choice: Marijuana, Hx of methamphetamine use Type Used: Cigarettes 2nd Hand Smoke Exposure: No Recent Foreign Travel: No Recent Hopitalizations: Yes Seasonal Allergies Seasonal Allergies: No Past Medical History Surgeries: No Cardiac Respiratory: No Cardiac: Yes (heart surgery at 16mo for hole in heart) Heart Attack Neurological: No Genitourinary: No Gastrointestinal: No Musculoskeletal: No Endocrine: Yes Diabetes, Non-Insulin dep HEENT: No Cancer: No Psychosocial: Yes (substance abuse ) Anxiety Integumentary: No Family Medical History Other Conditions/Hx Physical Exam Vital Signs Vital Signs - First Documented Capillary Refill : Height, Weight, BMI Height: '" Weight: 192lbs. 4.0oz. 87.552635lo; 21.91 BMI Method: General Appearance: Anxious, Chronically ill, Moderate Distress, Thin HEENT: PERRL/EOMI, Pharynx Normal Neck: Full Range of Motion, Normal Inspection, Non Tender, Supple Respiratory: Lungs Clear, No Accessory Muscle Use, No Respiratory Distress, Decreased Breath Sounds; No Rhonci, No Stridor; Other (tender to palpation over sternum and reproduces pain with palpation) Cardiovascular: Regular Rate, Rhythm, No Murmur, Normal Peripheral Pulses Gastrointestinal: Normal Bowel Sounds, No Pulsatile Mass, Soft Extremity: Normal Capillary Refill, No Pedal Edema Neurologic/Psychiatric: Alert, Oriented x3 Skin: Warm/Dry Procedures/Interventions Date of ETT Placement: Jul 23, 2019 Time of ETT Placement: 05 Progress/Results/Core Measures Results/Orders Lab Results Laboratory Tests Test 11/28/19 12:55 Range/Units White Blood Count 10.3 4.3-11.0 10^3/uL Red Blood Count 4.95 4.35-5.85 10^6/uL Hemoglobin 15.8 # 13.3-17.7 G/DL Hematocrit 45 40-54 % Mean Corpuscular Volume 91 80-99 FL Mean Corpuscular Hemoglobin 32 25-34 PG Mean Corpuscular Hemoglobin Concent 35 32-36 G/DL Red Cell Distribution Width 11.6 10.0-14.5 % Platelet Count 365 130-400 10^3/uL Mean Platelet Volume 9.7 7.4-10.4 FL Neutrophils (%) (Auto) 63 42-75 % Lymphocytes (%) (Auto) 27 12-44 % Monocytes (%) (Auto) 7 0-12 % Eosinophils (%) (Auto) 1 0-10 % Basophils (%) (Auto) 1 0-10 % Neutrophils # (Auto) 6.5 1.8-7.8 X 10^3 Lymphocytes # (Auto) 2.8 1.0-4.0 X 10^3 Monocytes # (Auto) 0.8 0.0-1.0 X 10^3 Eosinophils # (Auto) 0.1 0.0-0.3 10^3/uL Basophils # (Auto) 0.1 0.0-0.1 10^3/uL Prothrombin Time 12.9 12.2-14.7 SEC INR Comment 0.9 0.8-1.4 Activated Partial Thromboplast Time 26 24-35 SEC Sodium Level 133 L 135-145 MMOL/L Potassium Level 4.3 3.6-5.0 MMOL/L Chloride Level 93 L 98-107 MMOL/L Carbon Dioxide Level 23 21-32 MMOL/L Anion Gap 17 H 5-14 MMOL/L Blood Urea Nitrogen 14 7-18 MG/DL Creatinine 0.58 L 0.60-1.30 MG/DL Estimat Glomerular Filtration Rate > 60 BUN/Creatinine Ratio 24 Glucose Level 302 H 70-105 MG/DL Calcium Level 9.7 8.5-10.1 MG/DL Corrected Calcium 9.6 8.5-10.1 MG/DL Magnesium Level 1.7 1.6-2.4 MG/DL Total Bilirubin 0.4 0.1-1.0 MG/DL Aspartate Amino Transf (AST/SGOT) 46 H 5-34 U/L Alanine Aminotransferase (ALT/SGPT) 49 0-55 U/L Alkaline Phosphatase 111 40-136 U/L Troponin I < 0.30 <0.30 NG/ML Pro-B-Type Natriuretic Peptide 258.3 H <75.0 PG/ML Total Protein 7.8 6.4-8.2 GM/DL Albumin 4.1 3.2-4.5 GM/DL Lipase 24 8-78 U/L Serum Alcohol < 10 <10 MG/DL My Orders Orders - ALYSIA GERARD MD Cbc With Automated Diff (11/28/19 12:46) Magnesium (11/28/19 12:46) Chest 1 View Ap/Pa Only (11/28/19 12:46) Ekg Tracing (11/28/19 12:46) Comprehensive Metabolic Panel (11/28/19 12:46) Protime With Inr (11/28/19 12:46) Partial Thromboplastin Time (11/28/19 12:46) O2 (11/28/19 12:46) Monitor-Rhythm Ecg Trace Only (11/28/19 12:46) Ed Iv/Invasive Line Start (11/28/19 12:46) Lipase (11/28/19 12:46) Troponin I Fs (11/28/19 12:46) Probnp Fs (11/28/19 12:46) Alcohol (11/28/19 12:46) Ns Iv 1000 Ml (Sodium Chloride 0.9%) (11/28/19 13:03) Pantoprazole Injection (Protonix Injecti (11/28/19 13:03) Ondansetron Injection (Zofran Injectio (11/28/19 13:03) Ketorolac Injection (Toradol Injection) (11/28/19 14:39) Orphenadrine Injection (Norflex Injectio (11/28/19 14:39) Ns Iv 1000 Ml (Sodium Chloride 0.9%) (11/28/19 15:41) Promethazine Injection (Phenergan Injec (11/28/19 15:41) Lidocaine 2% Viscous 15 Ml (Xylocaine Vi (11/28/19 15:45) Antacid Suspension (Mylanta Suspension (11/28/19 15:45) Medications Given in ED Current Medications Medications Dose Ordered Sig/Scarlett Route Start Time Stop Time Status Last Admin Dose Admin Al Hydrox/Mg Hydrox/Simethicone 30 ml ONCE ONCE PO 11/28/19 15:45 11/28/19 15:46 DC 11/28/19 16:01 30 ML Lidocaine HCl 15 ml ONCE ONCE PO 11/28/19 15:45 11/28/19 15:46 DC 11/28/19 16:02 15 ML Vital Signs/I&O 11/28/19 11/28/19 12:44 12:44 Temp 36.7 Pulse 97 Resp 16 B/P (MAP) 109/80 (90) Pulse Ox 98 O2 Delivery Room Air Room Air Progress Progress Note #1: Time: 12:54 Progress Note check labs and ECG with CXR. Give IVF with zofran for n/v and protonix for epigastric pain. Progress Note #2: Time: 14:04 Progress Note Labs all appear stable without elevation of his cardiac enzymes. He still was having pain and nausea so will try repeating some additional medicines and fluids. Patient reported that Phenergan usually help better with his nausea. If he is still not improving with this round of medicine will try giving Phenergan Progress Note #3: Time: 15:34 Progress Note The other medicines had not made a significant improvement in his epigastric pain so Phenergan was ordered since he states that that has helped in the past with abdominal and epigastric pain. Will repeat a normal saline liter bolus. Reassured patient that all of his cardiac testing was normal and his liver enzymes and pancreas enzymes appear stable without elevation. This may all just be related to irritation from the antibiotic and based off of his cultures he could be switched to a different antibiotic that may not be quite as irritating to the stomach. Progress Note #4: Time: 17:33 Progress Note On recheck the patient was feeling better after treatment with the GI cocktail and the Phenergan and extra fluids. He is tolerating oral without vomiting and his pain is resolved. Will switch him from the doxycycline to Bactrim as his culture was chen sensitive. Hopefully the Bactrim will be a little less irritating to his stomach. Will also prescribe ranitidine sinus something for gastritis. Counseled to follow-up through the clinic as well. Initial ECG Impression Date: Nov 28, 2019 Initial ECG Impression Time: 12:46 Initial ECG Rate: 98 Initial ECG Rhythm: Normal Sinus Initial ECG Comparisson: No Previous ECG Available Comment Sinus rhythm with a heart rate of 98 bpm. OK interval 142 ms. QT interval 330 ms and a QTc interval 422 ms. He has LVH with secondary repolarization abnormalities. He has no acute ST elevation. There is no prior tracing immediately available for comparison. Diagnostic Imaging Diagonstic Imaging: Xray Plain Films/CT/US/NM/MRI: chest Comments NAME: LEON[facility]ZARO [facility] REC#: [id number] PT STATUS: REG ER : 1970 PHYSICIAN: ALYSIA GERARD MD ADMIT DATE: 11/28/19/ER FS Draft Date of Exam:11/28/19 CHEST 1 VIEW AP/PA ONLY INDICATION: Chest pain. TECHNIQUE: Single view chest 1:02 PM. CORRELATION STUDY: 11/24/2019 FINDINGS: Poststernotomy changes. The heart size, mediastinal configuration and pulmonary vascularity are within normal limits. The lungs are clear with no consolidating infiltrate. There is no significant effusion or pneumothorax. Mild rotation and/or scoliotic curvature thoracic spine. IMPRESSION: 1. Negative for acute abnormality of the chest. Dictated on workstation # [id number] Dict: 11/28/19 1322 Trans: 11/28/19 1324 DO [id number] Interpreted by: GAB ONOFRE DO Electronically signed by: Departure Impression Primary Impression: Gastritis and duodenitis Additional Impression: Epigastric abdominal pain Disposition: HOME, SELF-CARE Condition: Improved Departure-Patient Inst. Decision time for Depature: 17:42 Referrals: NO,LOCAL PHYSICIAN (PCP) [place] Phys[place] [facility] [place] Instructions: Acid Reflux (Gastroesophageal Reflux Disease), Adult (D C), Chest Pain That Is Not Caused by the Heart (DC), Gastritis (DC), Ulcer and Gastritis Diet Add. Discharge Instructions: Try switching the antibiotics and stop the doxycycline and start the new antibiotic to help your stomach and chest pain. Take the medicine specifically for stomach irritation to help with the pain as well. Follow-up through the clinic for continued symptoms or if not improving. All discharge instructions reviewed with patient and/or family. Voiced understanding. Scripts Ranitidine HCl (Acid Barn Worker (RANITIDINE)) 150 Mg Tablet 150 MG PO BID for gastritis for 30 Days, #60 TAB 0 Refills Prov: ALYSIA GERARD MD 11/28/19 Sulfamethoxazole/Trimethoprim (Bactrim Ds Tablet) 1 Each Tablet 1 EACH PO BID for abscess for 10 Days, #20 TAB 1 Refill Prov: ALYSIA GERARD MD 11/28/19 ALYSIA GERARD MD Nov 28, 2019 13:02
[2019-11-28 13:04] LABS: HEMOGLOBIN 15.8 G/DL (13.3-17.7); MEAN CORPUSCULAR HEMOGLOBIN 32 PG (25-34); WHITE BLOOD COUNT 10.3 10^3/uL (4.3-11.0)
[2019-11-28 13:05] LABS: BASOPHILS % (AUTO) 1 % (0-10); EOSINOPHILS % (AUTO) 1 % (0-10); HEMATOCRIT 45 % (40-54); LYMPHOCYTES % (AUTO) 27 % (12-44); MEAN CORPUSCULAR HGB CONC 35 G/DL (32-36); MEAN CORPUSCULAR VOLUME 91 FL (80-99); MEAN PLATELET VOLUME 9.7 FL (7.4-10.4); MONOCYTES % (AUTO) 7 % (0-12); NEUTROPHILS # (AUTO) 6.5 X 10^3 (1.8-7.8); NEUTROPHILS % (AUTO) 63 % (42-75); PLATELET COUNT 365 10^3/uL (130-400); RED CELL DISTRIBUTION WIDTH 11.6 % (10.0-14.5)
[2019-11-28 13:06] LABS: BASOPHILS # (AUTO) 0.1 10^3/uL (0.0-0.1); EOSINOPHILS # (AUTO) 0.1 10^3/uL (0.0-0.3); LYMPHOCYTES # (AUTO) 2.8 X 10^3 (1.0-4.0); MONOCYTES # (AUTO) 0.8 X 10^3 (0.0-1.0)
[2019-11-28 13:18] LABS: INR 0.9 (0.8-1.4); PROTHROMBIN TIME PATIENT 12.9 SEC (12.2-14.7)
--- NOTE | 2019-11-28 13:24 | Diagnostic Imaging Report ---
INDICATION: Chest pain. TECHNIQUE: Single view chest 1:02 PM. CORRELATION STUDY: 11/24/2019 FINDINGS: Poststernotomy changes. The heart size, mediastinal configuration and pulmonary vascularity are within normal limits. The lungs are clear with no consolidating infiltrate. There is no significant effusion or pneumothorax. Mild rotation and/or scoliotic curvature thoracic spine. IMPRESSION: 1. Negative for acute abnormality of the chest. Dictated by: Dictated on workstation # [id number]
[2019-11-28 13:31] LABS: ALANINE AMINOTRANSFERASE 49 U/L (0-55); ALKALINE PHOSPHATASE 111 U/L (40-136); BILIRUBIN,TOTAL 0.4 MG/DL (0.1-1.0); BUN/CREATININE RATIO 24; CALCIUM 9.7 MG/DL (8.5-10.1); CARBON DIOXIDE 23 MMOL/L (21-32); CHLORIDE 93 MMOL/L (98-107); CREATININE SERUM 0.58 MG/DL (0.60-1.30); GFR ESTIMATED > 60; GLUCOSE 302 MG/DL (70-105); MAGNESIUM 1.7 MG/DL (1.6-2.4); POTASSIUM 4.3 MMOL/L (3.6-5.0); SODIUM 133 MMOL/L (135-145)
[2019-11-28 13:32] LABS: ALBUMIN 4.1 GM/DL (3.2-4.5); LIPASE 24 U/L (8-78); TOTAL PROTEIN 7.8 GM/DL (6.4-8.2)
[2019-11-28] MEDS ORDERED: KETOROLAC 30 MG/ML VIAL IVP STA (14:39)
[2019-11-28] MEDS ORDERED: ORPHENADRINE 60 MG/2 ML (NORFLEX) AMP IVP STA (14:39)
[2019-11-28] MEDS ORDERED: PROMETHAZINE INJ 25 MG/ML (PHENERGAN) AMP IVP STA (15:41)
[2019-11-28] MEDS ORDERED: LIDOCAINE 2% VISCOUS 15 ML UDC PO ONE (15:45)
[2019-11-28] MEDS ORDERED: ANTACID SUSP 30 ML UDC (MYLANTA) PO ONE (15:45)
[2019-11-28] MEDS ORDERED: SULF1TAB35 PO (17:47)
[2019-11-28] MEDS ORDERED: RANI150T90 PO (17:47)
[2019-11-28 17:55] VITALS: BP 134/89
== END 2019-11-28 17:55 | disposition home or self-care (01) ==
LOC: EDUNIT# 12:44 → ER FS 12:45
DX: K29.70 Gastritis, unspecified, without bleeding (principal); K29.80 Duodenitis without bleeding; I25.2 Old myocardial infarction; E11.9 Type 2 diabetes mellitus without complications; F41.9 Anxiety disorder, unspecified; F17.210 Nicotine dependence, cigarettes, uncomplicated; Z88.0 Allergy status to penicillin; Z79.4 Long term (current) use of insulin
CPT/HCPCS: 36415; 71045; 80053; 80320; 83690; 83735; 83880; 84484; 85025; 85610; 85730; 93005; 93041

== ENCOUNTER 2020-02-16 07:55 | Emergency (ER) | payer MEDICAID ==
[~2020-02-16] VITALS: Ht 195.5 cm; Wt 81.8 kg
[~2020-02-16 07:55] MED LIST changes: +RANI150T90 PO; +SULF1TAB35 PO
--- OUTSIDE RECORDS SUMMARY | 2020-02-16 08:00 | XMS REPORT | Continuity of Care Document ---
Author Organization Unknown Address Unknown Phone Unavailable Allergies Active Description Code Type Severity Reaction Onset Reported/Identified Relationship to Patient Clinical Status Yes Penicillins [id number] Drug Aller gy Unknown N/A 07/20/2019 Yes Penicillins [id number] Drug Aller gy Unknown N/A 07/20/2019 Medications There is no data. Problems Date Dx Coded Attending Type Code Diagnosis Diagnosed By 07/22/2019 GARCIA HUSTON MD Ot B19. 20 UNSPECIFIED VIRAL HEPATITIS C WITHOUT HE 07/22/2019 GARCIA HUSTON MD Ot E11. 9 TYPE 2 DIABETES MELLITUS WITHOUT COMPLIC 07/22/2019 GARCIA HUSTON MD Ot F12. 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 9 ANXIETY DISORDER, UNSPECIFIED 07/22/2019 GARCIA HUSTON MD Ot I21. 4 NON-ST ELEVATION (NSTEMI) MYOCARDIAL INF 07/22/2019 GARCIA HUSTON MD Ot I42. 0 DILATED CARDIOMYOPATHY 07/22/2019 GARCIA HUSTON MD Ot I44. 1 ATRIOVENTRICULAR BLOCK, SECOND DEGREE 07/22/2019 GARCIA HUSTON MD Ot I47. 1 SUPRAVENTRICULAR TACHYCARDIA 07/22/2019 GARCIA HUSTON MD Ot I48. 92 UNSPECIFIED ATRIAL FLUTTER 07/22/2019 GARCIA HUSTON MD Ot I50. 21 ACUTE SYSTOLIC (CONGESTIVE) HEART FAILUR 07/22/2019 GARCIA HUSTON MD Ot I95. 9 HYPOTENSION, UNSPECIFIED 07/22/2019 GARCIA HUSTON MD Ot R05 COUGH 07/22/2019 GARCIA HUSTON MD Ot R40. 0 SOMNOLENCE 07/22/2019 GARCIA HSUTON MD Ot R45. 1 RESTLESSNESS AND AGITATION 07/22/2019 GARCIA HUSTON MD Ot Z72. 89 OTHER PROBLEMS RELATED TO LIFESTYLE 07/22/2019 GARCIA HUSTON MD Ot Z87. 74 PERSONAL HISTORY OF CONGENITAL MALFORM O 07/22/2019 GARCIA HUSTON MD Ot B19. 20 UNSPECIFIED VIRAL HEPATITIS C WITHOUT HE 07/22/2019 GARCIA HUSTON MD Ot E11. 9 TYPE 2 DIABETES MELLITUS WITHOUT COMPLIC 07/22/2019 GARCIA HUSTON MD Ot F12. 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 9 ANXIETY DISORDER, UNSPECIFIED 07/22/2019 GARCIA HUSTON MD Ot I21. 4 NON-ST ELEVATION (NSTEMI) MYOCARDIAL INF 07/22/2019 GARCIA HUSTON MD Ot I42. 0 DILATED CARDIOMYOPATHY 07/22/2019 GARCIA HUSTON MD Ot I44. 1 ATRIOVENTRICULAR BLOCK, SECOND DEGREE 07/22/2019 GARCIA HUSTON MD Ot I47. 1 SUPRAVENTRICULAR TACHYCARDIA 07/22/2019 GARCIA HUSTON MD Ot I48. 92 UNSPECIFIED ATRIAL FLUTTER 07/22/2019 GARCIA HUSTON MD Ot I50. 21 ACUTE SYSTOLIC (CONGESTIVE) HEART FAILUR 07/22/2019 GARCIA HUSTON MD Ot I95. 9 HYPOTENSION, UNSPECIFIED 07/22/2019 GARCIA HUSTON MD Ot R05 COUGH 07/22/2019 GARCIA HUSTON MD Ot R40. 0 SOMNOLENCE 07/22/2019 GARCIA HUSTON MD Ot R45. 1 RESTLESSNESS AND AGITATION 07/22/2019 GARCIA HUSTON MD Ot Z72. 89 OTHER PROBLEMS RELATED TO LIFESTYLE 07/22/2019 GARCIA HUSTON MD Ot Z87. 74 PERSONAL HISTORY OF CONGENITAL MALFORM O 07/22/2019 GARCIA HUSTON MD Ot B19. 20 UNSPECIFIED VIRAL HEPATITIS C WITHOUT HE 07/22/2019 GARCIA HUSTON MD Ot E11. 9 TYPE 2 DIABETES MELLITUS WITHOUT COMPLIC 07/22/2019 GARCIA HUSTON MD Ot F12. 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 9 ANXIETY DISORDER, UNSPECIFIED 07/22/2019 GARCIA HUSTON MD Ot I21. 4 NON-ST ELEVATION (NSTEMI) MYOCARDIAL INF 07/22/2019 GARCIA HUSTON MD Ot I42. 0 DILATED CARDIOMYOPATHY 07/22/2019 GARCIA HUSTON MD Ot I44. 1 ATRIOVENTRICULAR BLOCK, SECOND DEGREE 07/22/2019 GARCIA HUSTON MD Ot I47. 1 SUPRAVENTRICULAR TACHYCARDIA 07/22/2019 GARCIA HUSTON MD Ot I48. 92 UNSPECIFIED ATRIAL FLUTTER 07/22/2019 GARCIA HUSTON MD Ot I50. 21 ACUTE SYSTOLIC (CONGESTIVE) HEART FAILUR 07/22/2019 GARCIA HUSTON MD Ot I95. 9 HYPOTENSION, UNSPECIFIED 07/22/2019 GARCIA HUSTON MD Ot R05 COUGH 07/22/2019 GARCIA HUSTON MD Ot R40. 0 SOMNOLENCE 07/22/2019 GARCIA HUSTON MD Ot R45. 1 RESTLESSNESS AND AGITATION 07/22/2019 GARCIA HUSTON MD Ot Z72. 89 OTHER PROBLEMS RELATED TO LIFESTYLE 07/22/2019 GARCIA HUSTON MD Ot Z87. 74 PERSONAL HISTORY OF CONGENITAL MALFORM O 07/23/2019 GARCIA HUSTON MD Ot B19. 20 UNSPECIFIED VIRAL HEPATITIS C WITHOUT HE 07/23/2019 GARCIA HUSTON MD Ot E11. 9 TYPE 2 DIABETES MELLITUS WITHOUT COMPLIC 07/23/2019 GARCIA HUSTON MD Ot F12. 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 9 ANXIETY DISORDER, UNSPECIFIED 07/23/2019 GARCIA HUSTON MD Ot I21. 4 NON-ST ELEVATION (NSTEMI) MYOCARDIAL INF 07/23/2019 GARCIA HUSTON MD Ot I42. 0 DILATED CARDIOMYOPATHY 07/23/2019 GARCIA HUSTON MD Ot I44. 1 ATRIOVENTRICULAR BLOCK, SECOND DEGREE 07/23/2019 GARCIA HUSTON MD Ot I47. 1 SUPRAVENTRICULAR TACHYCARDIA 07/23/2019 GARCIA HUSTON MD Ot I48. 92 UNSPECIFIED ATRIAL FLUTTER 07/23/2019 GARCIA HUSTON MD Ot I50. 21 ACUTE SYSTOLIC (CONGESTIVE) HEART FAILUR 07/23/2019 GARCIA HUSTON MD Ot I95. 9 HYPOTENSION, UNSPECIFIED 07/23/2019 GARCIA HUSTON MD Ot R05 COUGH 07/23/2019 GARCIA HUSTON MD Ot R40. 0 SOMNOLENCE 07/23/2019 GARCIA HUSTON MD Ot R45. 1 RESTLESSNESS AND AGITATION 07/23/2019 GARCIA HUSTON MD Ot Z72. 89 OTHER PROBLEMS RELATED TO LIFESTYLE 07/23/2019 GARCIA HUSTON MD Ot Z87. 74 PERSONAL HISTORY OF CONGENITAL MALFORM O 07/23/2019 GARCIA HUSTON MD Ot B19. 20 UNSPECIFIED VIRAL HEPATITIS C WITHOUT HE 07/23/2019 GARCIA HUSTON MD Ot E11. 9 TYPE 2 DIABETES MELLITUS WITHOUT COMPLIC 07/23/2019 GARCIA HUSTON MD Ot F12. 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 9 ANXIETY DISORDER, UNSPECIFIED 07/23/2019 GARCIA HUSTON MD Ot I21. 4 NON-ST ELEVATION (NSTEMI) MYOCARDIAL INF 07/23/2019 GARCIA HUSTON MD Ot I42. 0 DILATED CARDIOMYOPATHY 07/23/2019 GARCIA HUSTON MD Ot I44. 1 ATRIOVENTRICULAR BLOCK, SECOND DEGREE 07/23/2019 GARCIA HUSTON MD Ot I47. 1 SUPRAVENTRICULAR TACHYCARDIA 07/23/2019 GARCIA HUSTON MD Ot I48. 92 UNSPECIFIED ATRIAL FLUTTER 07/23/2019 GARCIA HUSTON MD Ot I50. 21 ACUTE SYSTOLIC (CONGESTIVE) HEART FAILUR 07/23/2019 GARCIA HUSTON MD Ot I95. 9 HYPOTENSION, UNSPECIFIED 07/23/2019 GARCIA HUSTON MD Ot R05 COUGH 07/23/2019 GARCIA HUSTON MD Ot R40. 0 SOMNOLENCE 07/23/2019 GARCIA HUSTON MD Ot R45. 1 RESTLESSNESS AND AGITATION 07/23/2019 GARCIA HUSTON MD Ot Z72. 89 OTHER PROBLEMS RELATED TO LIFESTYLE 07/23/2019 GARCIA HUSTON MD Ot Z87. 74 PERSONAL HISTORY OF CONGENITAL MALFORM O 07/23/2019 GARCIA HUSTON MD Ot B19. 20 UNSPECIFIED VIRAL HEPATITIS C WITHOUT HE 07/23/2019 GARCIA HUSTON MD Ot E11. 9 TYPE 2 DIABETES MELLITUS WITHOUT COMPLIC 07/23/2019 GARCIA HUSTON MD Ot F12. 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 9 ANXIETY DISORDER, UNSPECIFIED 07/23/2019 GARCIA HUSTON MD Ot I21. 4 NON-ST ELEVATION (NSTEMI) MYOCARDIAL INF 07/23/2019 GARCIA HUSTON MD Ot I42. 0 DILATED CARDIOMYOPATHY 07/23/2019 GARCIA HUSTON MD Ot I44. 1 ATRIOVENTRICULAR BLOCK, SECOND DEGREE 07/23/2019 GARCIA HUSTON MD Ot I47. 1 SUPRAVENTRICULAR TACHYCARDIA 07/23/2019 GARCIA HUSTON MD Ot I48. 92 UNSPECIFIED ATRIAL FLUTTER 07/23/2019 GARCIA HUSTON MD Ot I50. 21 ACUTE SYSTOLIC (CONGESTIVE) HEART FAILUR 07/23/2019 GARCIA HUSTON MD Ot I95. 9 HYPOTENSION, UNSPECIFIED 07/23/2019 GARCIA HUSTON MD Ot R05 COUGH 07/23/2019 GARCIA HUSTON MD Ot R40. 0 SOMNOLENCE 07/23/2019 GARCIA HUSTON MD Ot R45. 1 RESTLESSNESS AND AGITATION 07/23/2019 GARCIA HUSTON MD Ot Z72. 89 OTHER PROBLEMS RELATED TO LIFESTYLE 07/23/2019 GARCIA HUSTON MD Ot Z87. 74 PERSONAL HISTORY OF CONGENITAL MALFORM O 07/23/2019 GARCIA HUSTON MD Ot B19. 20 UNSPECIFIED VIRAL HEPATITIS C WITHOUT HE 07/23/2019 GARCIA HUSTON MD Ot E11. 9 TYPE 2 DIABETES MELLITUS WITHOUT COMPLIC 07/23/2019 GARCIA HUSTON MD Ot F12. 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 9 ANXIETY DISORDER, UNSPECIFIED 07/23/2019 GARCIA HUSTON MD Ot I21. 4 NON-ST ELEVATION (NSTEMI) MYOCARDIAL INF 07/23/2019 GARCIA HUSTON MD Ot I42. 0 DILATED CARDIOMYOPATHY 07/23/2019 GARCIA HUSTON MD Ot I44. 1 ATRIOVENTRICULAR BLOCK, SECOND DEGREE 07/23/2019 GARCIA HUSTON MD Ot I47. 1 SUPRAVENTRICULAR TACHYCARDIA 07/23/2019 GARCIA HUSTON MD Ot I48. 92 UNSPECIFIED ATRIAL FLUTTER 07/23/2019 GARCIA HUSTON MD Ot I50. 21 ACUTE SYSTOLIC (CONGESTIVE) HEART FAILUR 07/23/2019 GARCIA HUSTON MD Ot I95. 9 HYPOTENSION, UNSPECIFIED 07/23/2019 GARCIA HUSTON MD Ot R05 COUGH 07/23/2019 GARCIA HUSTON MD Ot R40. 0 SOMNOLENCE 07/23/2019 GARCIA HUSTON MD Ot R45. 1 RESTLESSNESS AND AGITATION 07/23/2019 GARCIA HUSTON MD Ot Z72. 89 OTHER PROBLEMS RELATED TO LIFESTYLE 07/23/2019 GARCIA HUSTON MD Ot Z87. 74 PERSONAL HISTORY OF CONGENITAL MALFORM O 07/24/2019 GARCIA HUSTON MD Ot B19. 20 UNSPECIFIED VIRAL HEPATITIS C WITHOUT HE 07/24/2019 GARCIA HUSTON MD Ot E11. 9 TYPE 2 DIABETES MELLITUS WITHOUT COMPLIC 07/24/2019 GARCIA HUSTON MD Ot F12. 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 9 ANXIETY DISORDER, UNSPECIFIED 07/24/2019 GARCIA HUSTON MD Ot I21. 4 NON-ST ELEVATION (NSTEMI) MYOCARDIAL INF 07/24/2019 GARCIA HUSTON MD Ot I42. 0 DILATED CARDIOMYOPATHY 07/24/2019 GARCIA HUSTON MD Ot I44. 1 ATRIOVENTRICULAR BLOCK, SECOND DEGREE 07/24/2019 GARCIA HUSTON MD Ot I47. 1 SUPRAVENTRICULAR TACHYCARDIA 07/24/2019 GARCIA HUSTON MD Ot I48. 92 UNSPECIFIED ATRIAL FLUTTER 07/24/2019 GARCIA HUSTON MD Ot I50. 21 ACUTE SYSTOLIC (CONGESTIVE) HEART FAILUR 07/24/2019 GARCIA HUSTON MD Ot I95. 9 HYPOTENSION, UNSPECIFIED 07/24/2019 GARCIA HUSTON MD Ot R05 COUGH 07/24/2019 GARCIA HUSTON MD Ot R40. 0 SOMNOLENCE 07/24/2019 GARCIA HUSTON MD Ot R45. 1 RESTLESSNESS AND AGITATION 07/24/2019 GARCIA HUSTON MD Ot Z72. 89 OTHER PROBLEMS RELATED TO LIFESTYLE 07/24/2019 GARCIA HUSTON MD Ot Z87. 74 PERSONAL HISTORY OF CONGENITAL MALFORM O 07/24/2019 GARCIA HUSTON MD Ot B19. 20 UNSPECIFIED VIRAL HEPATITIS C WITHOUT HE 07/24/2019 GARCIA HUSTON MD Ot E11. 9 TYPE 2 DIABETES MELLITUS WITHOUT COMPLIC 07/24/2019 GARCIA HUSTON MD Ot F12. 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 9 ANXIETY DISORDER, UNSPECIFIED 07/24/2019 GARCIA HUSTON MD Ot I21. 4 NON-ST ELEVATION (NSTEMI) MYOCARDIAL INF 07/24/2019 GARCIA HUSTON MD Ot I42. 0 DILATED CARDIOMYOPATHY 07/24/2019 GARCIA HUSTON MD Ot I44. 1 ATRIOVENTRICULAR BLOCK, SECOND DEGREE 07/24/2019 GARCIA HUSTON MD Ot I47. 1 SUPRAVENTRICULAR TACHYCARDIA 07/24/2019 GARCIA HUSTON MD Ot I48. 92 UNSPECIFIED ATRIAL FLUTTER 07/24/2019 GARCIA HUSTON MD Ot I50. 21 ACUTE SYSTOLIC (CONGESTIVE) HEART FAILUR 07/24/2019 GARCIA HUSTON MD Ot I95. 9 HYPOTENSION, UNSPECIFIED 07/24/2019 GARCIA HUSTON MD Ot R05 COUGH 07/24/2019 GARCIA HUSTON MD Ot R40. 0 SOMNOLENCE 07/24/2019 GARCIA HUSTON MD Ot R45. 1 RESTLESSNESS AND AGITATION 07/24/2019 GARCIA HUSTON MD Ot Z72. 89 OTHER PROBLEMS RELATED TO LIFESTYLE 07/24/2019 GARCIA HUSTON MD Ot Z87. 74 PERSONAL HISTORY OF CONGENITAL MALFORM O 07/24/2019 GARCIA HUSTON MD Ot B19. 20 UNSPECIFIED VIRAL HEPATITIS C WITHOUT HE 07/24/2019 GARCIA HUSTON MD Ot E11. 9 TYPE 2 DIABETES MELLITUS WITHOUT COMPLIC 07/24/2019 GARCIA HUSTON MD Ot F12. 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 9 ANXIETY DISORDER, UNSPECIFIED 07/24/2019 GARCIA HUSTON MD Ot I21. 4 NON-ST ELEVATION (NSTEMI) MYOCARDIAL INF 07/24/2019 GARCIA HUSTON MD Ot I42. 0 DILATED CARDIOMYOPATHY 07/24/2019 GARCIA HUSTON MD Ot I44. 1 ATRIOVENTRICULAR BLOCK, SECOND DEGREE 07/24/2019 GARCIA HUSTON MD Ot I47. 1 SUPRAVENTRICULAR TACHYCARDIA 07/24/2019 GARCIA HUSTON MD Ot I48. 92 UNSPECIFIED ATRIAL FLUTTER 07/24/2019 GARCIA HUSTON MD Ot I50. 21 ACUTE SYSTOLIC (CONGESTIVE) HEART FAILUR 07/24/2019 GARCIA HUSTON MD Ot I95. 9 HYPOTENSION, UNSPECIFIED 07/24/2019 GARCIA HUSTON MD Ot R05 COUGH 07/24/2019 GARCIA HUSTON MD Ot R40. 0 SOMNOLENCE 07/24/2019 GARCIA HUSTON MD Ot R45. 1 RESTLESSNESS AND AGITATION 07/24/2019 GARCIA HUSTON MD Ot Z72. 89 OTHER PROBLEMS RELATED TO LIFESTYLE 07/24/2019 GARCIA HUSTON MD Ot Z87. 74 PERSONAL HISTORY OF CONGENITAL MALFORM O 07/26/2019 GARCIA HUSTON MD Ot B19. 20 UNSPECIFIED VIRAL HEPATITIS C WITHOUT HE 07/26/2019 GARCIA HUSTON MD Ot E11. 9 TYPE 2 DIABETES MELLITUS WITHOUT COMPLIC 07/26/2019 GARCIA HUSTON MD Ot F12. 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 9 ANXIETY DISORDER, UNSPECIFIED 07/26/2019 GARCIA HUSTON MD Ot I21. 4 NON-ST ELEVATION (NSTEMI) MYOCARDIAL INF 07/26/2019 GARCIA HUSTON MD Ot I42. 0 DILATED CARDIOMYOPATHY 07/26/2019 GARCIA HUSTON MD Ot I44. 1 ATRIOVENTRICULAR BLOCK, SECOND DEGREE 07/26/2019 GARCIA HUSTON MD Ot I47. 1 SUPRAVENTRICULAR TACHYCARDIA 07/26/2019 GARCIA HUSTON MD Ot I48. 92 UNSPECIFIED ATRIAL FLUTTER 07/26/2019 GARCIA HUSTON MD Ot I50. 21 ACUTE SYSTOLIC (CONGESTIVE) HEART FAILUR 07/26/2019 GARCIA HUSTON MD Ot I95. 9 HYPOTENSION, UNSPECIFIED 07/26/2019 GARCIA HUSTON MD Ot R05 COUGH 07/26/2019 GARCIA HUSTON MD Ot R40. 0 SOMNOLENCE 07/26/2019 GARCIA HUSTON MD Ot R45. 1 RESTLESSNESS AND AGITATION 07/26/2019 GARCIA HUSTON MD Ot Z72. 89 OTHER PROBLEMS RELATED TO LIFESTYLE 07/26/2019 GARCIA HUSTON MD Ot Z87. 74 PERSONAL HISTORY OF CONGENITAL MALFORM O 08/01/2019 GARCIA HUSTON MD Ot B19. 20 UNSPECIFIED VIRAL HEPATITIS C WITHOUT HE 08/01/2019 GARCIA HUSTON MD Ot E11. 9 TYPE 2 DIABETES MELLITUS WITHOUT COMPLIC 08/01/2019 GARCIA HUSTON MD Ot F12. 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 9 ANXIETY DISORDER, UNSPECIFIED 08/01/2019 GARCIA HUSTON MD Ot I21. 4 NON-ST ELEVATION (NSTEMI) MYOCARDIAL INF 08/01/2019 GARCIA HUSTON MD Ot I34. 0 NONRHEUMATIC MITRAL (VALVE) INSUFFICIENC 08/01/2019 GARCIA HUSTON MD Ot I42. 0 DILATED CARDIOMYOPATHY 08/01/2019 GARCIA HUSTON MD Ot I44. 1 ATRIOVENTRICULAR BLOCK, SECOND DEGREE 08/01/2019 GARCIA HUSTON MD Ot I47. 1 SUPRAVENTRICULAR TACHYCARDIA 08/01/2019 GARCIA HUSTON MD Ot I48. 91 UNSPECIFIED ATRIAL FIBRILLATION 08/01/2019 GARCIA HUSTON MD Ot I48. 92 UNSPECIFIED ATRIAL FLUTTER 08/01/2019 GARCIA HUSTON MD Ot I50. 21 ACUTE SYSTOLIC (CONGESTIVE) HEART FAILUR 08/01/2019 GARCIA HUSTON MD Ot I87. 2 VENOUS INSUFFICIENCY (CHRONIC) (PERIPHER 08/01/2019 GARCIA HUSTON MD Ot I95. 9 HYPOTENSION, UNSPECIFIED 08/01/2019 GARCIA HUSTON MD Ot J96. 00 ACUTE RESPIRATORY FAILURE, UNSP W HYPOXI 08/01/2019 GARCIA HUSTON MD Ot R05 COUGH 08/01/2019 GARCIA HUSTON MD Ot R40. 0 SOMNOLENCE 08/01/2019 GARCIA HUSTON MD, Ot R45. 1 RESTLESSNESS AND AGITATION 08/01/2019 GARCIA HUSTON MD Ot R57. 0 CARDIOGENIC SHOCK 08/01/2019 GARCIA HUSTON MD Ot Z51. 5 ENCOUNTER FOR PALLIATIVE CARE 08/01/2019 GARCIA HUSTON MD Ot Z66 DO NOT RESUSCITATE 08/01/2019 GARCIA HUSTON MD, Ot Z72. 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 74 PERSONAL HISTORY OF CONGENITAL MALFORM O 08/01/2019 GARCIA HUSTON MD Ot Z88. 0 ALLERGY STATUS TO PENICILLIN 11/25/2019 VIELKA NEWMAN MD Ot B95. 7 OTH STAPHYLOCOCCUS THE CAUSE OF DISEA 11/25/2019 VIELKA NEWMAN MD Ot E11. 65 TYPE 2 DIABETES MELLITUS WITH HYPERGLYCE 11/25/2019 VIELKA NEWMAN MD Ot E87. 1 HYPO-OSMOLALITY AND HYPONATREMIA 11/25/2019 VIELKA NEWMAN MD Ot F12. 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 9 MAJOR DEPRESSIVE DISORDER, SINGLE EPISOD 11/25/2019 VIELKA NEWMAN MD, Ot F41. 9 ANXIETY DISORDER, UNSPECIFIED 11/25/2019 VIELKA NEWMAN MD, Ot I25. 2 OLD MYOCARDIAL INFARCTION 11/25/2019 VIELKA NEWMAN MD, Ot I42. 8 OTHER CARDIOMYOPATHIES 11/25/2019 VIELKA NEWMAN MD, Ot I48. 0 PAROXYSMAL ATRIAL FIBRILLATION 11/25/2019 VIELKA NEWMAN MD, Ot J44. 9 CHRONIC OBSTRUCTIVE PULMONARY DISEASE, U 11/25/2019 VIELKA NEWMAN MD, Ot L02.212 CUTANEOUS ABSCESS OF BACK [ANY PART, EXC 11/25/2019 VIELKA NEWMAN MD, Ot L02.213 CUTANEOUS ABSCESS OF CHEST WALL 11/25/2019 VIELKA NEWMAN MD, Ot L02.412 CUTANEOUS ABSCESS OF LEFT AXILLA 11/25/2019 VIELKA NEWMAN MD, Ot L02.422 FURUNCLE OF LEFT AXILLA 11/25/2019 VIELKA NEWMAN MD Ot L03.313 CELLULITIS OF CHEST WALL 11/25/2019 VIELKA NEWMAN MD, Ot L73. 2 HIDRADENITIS SUPPURATIVA 11/25/2019 VIELKA NEWMAN MD, Ot Z86. 14 PERSONAL HISTORY OF METHICILLIN RESIS ST 11/25/2019 VIELKA NEWMAN MD, Ot Z87. 74 PERSONAL HISTORY OF CONGENITAL MALFORM O 11/25/2019 VIELKA NEWMAN MD, Ot Z88. 0 ALLERGY STATUS TO PENICILLIN Procedures Code Description Performed By Per formed On [id number] RE STORATION OF CARDIAC RHYTHM, SINGLE 07/22/2019 [id number] UL TRASONOGRAPHY OF LEFT HEART, TRANSESOP 07/22/2019 [id number] IN SERTION OF INFUSION DEV INTO SUP VENA 07/23/2019 [id number] IN SERTION OF ENDOTRACHEAL AIRWAY INTO TR 07/23/2019 [id number] ME ASURE OF CARDIAC SAMPL PRESSURE, L H 07/23/2019 [id number] SIST WITH CARDIAC OUTPUT USING BALLOON 07/23/2019 [id number] RE SPIRATORY VENTILATION, 24- 96 CONSECUTI 07/23/2019 [id number] FL UOROSCOPY OF MULT COR ART USING L OSM 07/23/2019 [id number] FL UOROSCOPY OF THORACIC AORTA USING LOW 07/23/[id number] GARRISON OF LEFT UPPER ARM SKIN, EXTERNA 11/23/2019 Results Test Result Range Complete blood count (CBC) with automate d white blood cell (WBC) differential - 07/20/19 17:45 Blood leukocytes automated count (number/volume) 8.0 10*3/uL 4.3-11.0 Blood erythrocytes automated count (number/volume) 4.15 10*6/uL 4.35-5.85 Venous blood hemoglobin measurement (mass/volume) 13.4 g/dL 13.3-17.7 Blood hematocrit (volume fraction) 39 % 40-54 Automated erythrocyte mean corpuscular volume 95 [ foz_us] 80-99 Automated erythrocyte mean corpuscular h emoglobin (mass per erythrocyte) 32 pg 25-34 Automated erythrocyte mean corpuscular h emoglobin concentration measurement (mass/volume) 34 g/dL 32-36 Automated erythrocyte distribution width ratio 12. 3 % 10.0- 14.5 Automated blood platelet count (count/volume) 163 10*3/uL 130-400 Automated blood platelet mean volume measurement 10.6 [foz_us] 7.4-10.4 Automated blood neutrophils/100 leukocytes 70 % 42-75 Automated blood lymphocytes/100 leukocytes 20 % 12-44 Blood monocytes/100 leukocytes 9 % 0-12 Automated blood eosinophils/100 leukocytes 1 % 0-10 Automated blood basophils/100 leukocytes 0 % 0-10 Blood neutrophils automated count (number/volume) 5.6 10*3 1.8-7.8 Blood lymphocytes automated count (number/volume) 1.6 10*3 1.0-4.0 Blood monocytes automated count (number/volume) 0. 7 10*3 0.0-1.0 Automated eosinophil count 0.1 10*3/uL 0 .0-0.3 Automated blood basophil count (count/volume) 0.0 10*3/uL 0.0-0.1 Comprehensive metabolic panel - 07/20/19 17:45 Serum or plasma sodium measurement (moles/volume) 135 mmol/L 135-145 Serum or plasma potassium measurement (moles/volume) 4.1 mmol/L 3.6-5.0 Serum or plasma chloride measurement (moles/volume) 97 mmol/L 98-107 Carbon dioxide 26 mmol/L 21-32 Serum or plasma anion gap determination (moles/volume) 12 mmol/L 5-14 Serum or plasma urea nitrogen measurement (mass/volume ) 11 mg/dL 7-18 Serum or plasma creatinine measurement (mass/volume) 0.57 mg/dL 0.60-1.30 Serum or plasma urea nitrogen/creatinine mass ratio 19 NRG Serum or plasma creatinine measurement w ith calculation of estimated glomerular filtration rate > NRG Serum or plasma glucose measurement (mass/volume) 237 mg/dL 70-105 Serum or plasma calcium measurement (mass/volume) 8.7 mg/dL 8.5-10.1 Serum or plasma total bilirubin measurement (mass/volu me) 0.4 mg/dL 0.1-1.0 Serum or plasma alkaline phosphatase ephraim surement (enzymatic activity/volume) 77 U/L 40-136 Serum or plasma aspartate aminotransfera se measurement (enzymatic activity/volume) 65 U/L 5-34 Serum or plasma alanine aminotransferase measurement (enzymatic activity/volume) 74 U/L 0-55 Serum or plasma protein measurement (mass/volume) 6.3 g/dL 6.4-8.2 Serum or plasma albumin measurement (mass/volume) 3.4 g/dL 3.2-4.5 CALCIUM CORRECTED 9.2 mg/dL 8.5-10.1 Serum or plasma troponin i.cardiac measu rement (mass/volume) - 07/20/19 17:45 Serum or plasma troponin i.cardiac measurement (mass/v olume) < ng/mL <0.30 Serum or plasma ethanol measurement (mas s/volume) - 07/20/19 17:45 Serum or plasma ethanol measurement (mass/volume) < mg/dL <10 PROBNP FS - 07/20/19 17:45 PROBNP FS 4076.0 pg/mL <75.0 Serum or plasma creatine kinase measurem ent (enzymatic activity/volume) - 07/20/19 17:45 Serum or plasma creatine kinase measurem ent (enzymatic activity/volume) 179 U/L 30-200 Urine drug screening test - 07/20/19 19: 40 Urine phencyclidine detection by screening method NEGATIVE NEGATIVE Urine benzodiazepines detection by screening method NEGATIVE NEGATIVE Urine cocaine detection NEGATIVE NEGATI VE Urine amphetamines detection by screening method N EGATIVE NEGATIVE Urine methamphetamine detection by screening method NEGATIVE NEGATIVE Urine cannabinoids detection by screening method P OSITIVE NEGATIVE Urine opiates detection by screening method NEGATI VE NEGATIVE Urine barbiturates detection NEGATIVE N EGATIVE Screening urine tricyclic antidepressants detection NEGATIVE NEGATIVE Urine methadone detection by screening method NEGA TIVE NEGATIVE Urine oxycodone detection NEGATIVE NEGA TIVE Urine propoxyphene detection NEGATIVE N EGATIVE Methicillin resistant Staphylococcus aur eus (MRSA) screening culture - 07/21/19 04:00 Methicillin resistant Staphylococcus aureus (MRSA) scr eening culture NEG NRG Hemoglobin A1c measurement - 07/21/19 04 :31 Blood hemoglobin A1C measurement (mass/volume) 10. 2 % 4.0- 5.6 MEAN BLOOD GLUCOSE 246 % <=126 Complete blood count (CBC) with automate d white blood cell (WBC) differential - 07/21/19 04:31 Blood leukocytes automated count (number/volume) 8.2 10*3/uL 4.3-11.0 Blood erythrocytes automated count (number/volume) 4.56 10*6/uL 4.35-5.85 Venous blood hemoglobin measurement (mass/volume) 14.8 g/dL 13.3-17.7 Blood hematocrit (volume fraction) 43 % 40-54 Automated erythrocyte mean corpuscular volume 95 [ foz_us] 80-99 Automated erythrocyte mean corpuscular h emoglobin (mass per erythrocyte) 33 pg 25-34 Automated erythrocyte mean corpuscular h emoglobin concentration measurement (mass/volume) 34 g/dL 32-36 Automated erythrocyte distribution width ratio 12. 7 % 10.0- 14.5 Automated blood platelet count (count/volume) 178 10*3/uL 130-400 Automated blood platelet mean volume measurement 10.4 [foz_us] 7.4-10.4 Automated blood neutrophils/100 leukocytes 69 % 42-75 Automated blood lymphocytes/100 leukocytes 19 % 12-44 Blood monocytes/100 leukocytes 11 % 0-12 Automated blood eosinophils/100 leukocytes 1 % 0-10 Automated blood basophils/100 leukocytes 0 % 0-10 Blood neutrophils automated count (number/volume) 5.6 10*3 1.8-7.8 Blood lymphocytes automated count (number/volume) 1.6 10*3 1.0-4.0 Blood monocytes automated count (number/volume) 0. 9 10*3 0.0-1.0 Automated eosinophil count 0.1 10*3/uL 0 .0-0.3 Automated blood basophil count (count/volume) 0.0 10*3/uL 0.0-0.1 Comprehensive metabolic panel - 07/21/19 04:31 Serum or plasma sodium measurement (moles/volume) 135 mmol/L 135-145 Serum or plasma potassium measurement (moles/volume) 3.8 mmol/L 3.6-5.0 Serum or plasma chloride measurement (moles/volume) 98 mmol/L 98-107 Carbon dioxide 28 mmol/L 21-32 Serum or plasma anion gap determination (moles/volume) 9 mmol/L 5-14 Serum or plasma urea nitrogen measurement (mass/volume ) 10 mg/dL 7-18 Serum or plasma creatinine measurement (mass/volume) 0.82 mg/dL 0.60-1.30 Serum or plasma urea nitrogen/creatinine mass ratio 12 NRG Serum or plasma creatinine measurement w ith calculation of estimated glomerular filtration rate > NRG Serum or plasma glucose measurement (mass/volume) 243 mg/dL 70-105 Serum or plasma calcium measurement (mass/volume) 8.5 mg/dL 8.5-10.1 Serum or plasma total bilirubin measurement (mass/volu me) 1.0 mg/dL 0.1-1.0 Serum or plasma alkaline phosphatase ephraim surement (enzymatic activity/volume) 82 U/L 40-136 Serum or plasma aspartate aminotransfera se measurement (enzymatic activity/volume) 81 U/L 5-34 Serum or plasma alanine aminotransferase measurement (enzymatic activity/volume) 88 U/L 0-55 Serum or plasma protein measurement (mass/volume) 6.7 g/dL 6.4-8.2 Serum or plasma albumin measurement (mass/volume) 3.4 g/dL 3.2-4.5 CALCIUM CORRECTED 9.0 mg/dL 8.5-10.1 Serum or plasma phosphate measurement (m ass/volume) - 07/21/19 04:31 Serum or plasma phosphate measurement (mass/volume) 3.1 mg/dL 2.3-4.7 Magnesium - 07/21/19 04:31 Magnesium 1.2 mg/dL 1.6-2.4 Serum or plasma troponin i.cardiac measu rement (mass/volume) - 07/21/19 04:31 Serum or plasma troponin i.cardiac measurement (mass/v olume) 0.038 ng/mL <0.028 Serum or plasma lithium measurement (mol es/volume) - 07/21/19 04:31 BNP PT 963.0 pg/mL <100.0 Capillary blood glucose measurement by g lucometer (mass/volume) - 07/21/19 12:08 Capillary blood glucose measurement by glucometer (mas s/volume) 138 mg/dL 70-110 Capillary blood glucose measurement by g lucometer (mass/volume) - 07/21/19 15:51 Capillary blood glucose measurement by glucometer (mas s/volume) 366 mg/dL 70-110 Capillary blood glucose measurement by g lucometer (mass/volume) - 07/21/19 19:59 Capillary blood glucose measurement by glucometer (mas s/volume) 259 mg/dL 70-110 Complete blood count (CBC) with automate d white blood cell (WBC) differential - 07/22/19 02:55 Blood leukocytes automated count (number/volume) 7.8 10*3/uL 4.3-11.0 Blood erythrocytes automated count (number/volume) 4.14 10*6/uL 4.35-5.85 Venous blood hemoglobin measurement (mass/volume) 13.1 g/dL 13.3-17.7 Blood hematocrit (volume fraction) 39 % 40-54 Automated erythrocyte mean corpuscular volume 95 [ foz_us] 80-99 Automated erythrocyte mean corpuscular h emoglobin (mass per erythrocyte) 32 pg 25-34 Automated erythrocyte mean corpuscular h emoglobin concentration measurement (mass/volume) 33 g/dL 32-36 Automated erythrocyte distribution width ratio 12. 6 % 10.0- 14.5 Automated blood platelet count (count/volume) 178 10*3/uL 130-400 Automated blood platelet mean volume measurement 10.7 [foz_us] 7.4-10.4 Automated blood neutrophils/100 leukocytes 66 % 42-75 Automated blood lymphocytes/100 leukocytes 21 % 12-44 Blood monocytes/100 leukocytes 13 % 0-12 Automated blood eosinophils/100 leukocytes 1 % 0-10 Automated blood basophils/100 leukocytes 0 % 0-10 Blood neutrophils automated count (number/volume) 5.1 10*3 1.8-7.8 Blood lymphocytes automated count (number/volume) 1.6 10*3 1.0-4.0 Blood monocytes automated count (number/volume) 1. 0 10*3 0.0-1.0 Automated eosinophil count 0.0 10*3/uL 0 .0-0.3 Automated blood basophil count (count/volume) 0.0 10*3/uL 0.0-0.1 Whole blood basic metabolic panel - 07/07 04/24 02:55 Serum or plasma sodium measurement (moles/volume) 131 mmol/L 135-145 Serum or plasma potassium measurement (moles/volume) 4.0 mmol/L 3.6-5.0 Serum or plasma chloride measurement (moles/volume) 98 mmol/L 98-107 Carbon dioxide 23 mmol/L 21-32 Serum or plasma anion gap determination (moles/volume) 10 mmol/L 5-14 Serum or plasma urea nitrogen measurement (mass/volume ) 18 mg/dL 7-18 Serum or plasma creatinine measurement (mass/volume) 0.83 mg/dL 0.60-1.30 Serum or plasma urea nitrogen/creatinine mass ratio 22 NRG Serum or plasma creatinine measurement w ith calculation of estimated glomerular filtration rate > NRG Serum or plasma glucose measurement (mass/volume) 243 mg/dL 70-105 Serum or plasma calcium measurement (mass/volume) 8.3 mg/dL 8.5-10.1 Serum or plasma phosphate measurement (m ass/volume) - 07/22/19 02:55 Serum or plasma phosphate measurement (mass/volume) 4.1 mg/dL 2.3-4.7 Magnesium - 07/22/19 02:55 Magnesium 1.7 mg/dL 1.6-2.4 Capillary blood glucose measurement by g lucometer (mass/volume) - 07/22/19 20:44 Capillary blood glucose measurement by glucometer (mas s/volume) 343 mg/dL 70-110 Complete blood count (CBC) with automate d white blood cell (WBC) differential - 07/23/19 03:40 Blood leukocytes automated count (number/volume) 9.2 10*3/uL 4.3-11.0 Blood erythrocytes automated count (number/volume) 4.35 10*6/uL 4.35-5.85 Venous blood hemoglobin measurement (mass/volume) 14.0 g/dL 13.3-17.7 Blood hematocrit (volume fraction) 41 % 40-54 Automated erythrocyte mean corpuscular volume 94 [ foz_us] 80-99 Automated erythrocyte mean corpuscular h emoglobin (mass per erythrocyte) 32 pg 25-34 Automated erythrocyte mean corpuscular h emoglobin concentration measurement (mass/volume) 34 g/dL 32-36 Automated erythrocyte distribution width ratio 12. 6 % 10.0- 14.5 Automated blood platelet count (count/volume) 242 10*3/uL 130-400 Automated blood platelet mean volume measurement 10.7 [foz_us] 7.4-10.4 Automated blood neutrophils/100 leukocytes 59 % 42-75 Automated blood lymphocytes/100 leukocytes 23 % 12-44 Blood monocytes/100 leukocytes 17 % 0-12 Automated blood eosinophils/100 leukocytes 0 % 0-10 Automated blood basophils/100 leukocytes 0 % 0-10 Blood neutrophils automated count (number/volume) 5.5 10*3 1.8-7.8 Blood lymphocytes automated count (number/volume) 2.1 10*3 1.0-4.0 Blood monocytes automated count (number/volume) 1. 6 10*3 0.0-1.0 Automated eosinophil count 0.0 10*3/uL 0 .0-0.3 Automated blood basophil count (count/volume) 0.0 10*3/uL 0.0-0.1 Whole blood basic metabolic panel - 07/07 05/24 03:40 Serum or plasma sodium measurement (moles/volume) 130 mmol/L 135-145 Serum or plasma potassium measurement (moles/volume) 4.8 mmol/L 3.6-5.0 Serum or plasma chloride measurement (moles/volume) 98 mmol/L 98-107 Carbon dioxide 22 mmol/L 21-32 Serum or plasma anion gap determination (moles/volume) 10 mmol/L 5-14 Serum or plasma urea nitrogen measurement (mass/volume ) 26 mg/dL 7-18 Serum or plasma creatinine measurement (mass/volume) 1.25 mg/dL 0.60-1.30 Serum or plasma urea nitrogen/creatinine mass ratio 21 NRG Serum or plasma creatinine measurement w ith calculation of estimated glomerular filtration rate > NRG Serum or plasma glucose measurement (mass/volume) 301 mg/dL 70-105 Serum or plasma calcium measurement (mass/volume) 8.4 mg/dL 8.5-10.1 Serum or plasma phosphate measurement (m ass/volume) - 07/23/19 03:40 Serum or plasma phosphate measurement (mass/volume) 4.5 mg/dL 2.3-4.7 Magnesium - 07/23/19 03:40 Magnesium 1.7 mg/dL 1.6-2.4 Serum or plasma triglyceride measurement (mass/volume) - 07/23/19 03:40 Serum or plasma triglyceride measurement (mass/volume) 58 mg/dL <150 Capillary blood glucose measurement by g lucometer (mass/volume) - 07/23/19 05:27 Capillary blood glucose measurement by glucometer (mas s/volume) 306 mg/dL 70-110 Sputum Gram stain - 07/23/19 05:46 Sputum Gram stain No bacteria seen NRG Bacterial sputum culture - 07/23/19 05:4 6 FREE TEXT EXTERNAL BETA LACTAMASE NEGATIVE NRG QUANTITY OF GROWTH Many NRG FREE TEXT ENTRY 2 SEE COMMENTS NRG Bacterial sputum culture [id number] NRG Arterial blood gas measurement - 9 07:58 Blood pCO2 37 mm[Hg] 35-45 Blood pO2 125 mm[Hg] 79-93 Arterial blood bicarbonate measurement (moles/volume) 19 mmol/L 23-27 Arterial blood base excess by calculation -5.7 mmo l/L -2.5-2.5 Arterial blood oxygen saturation measurement 98 % 94-100 * Inhaled oxygen flow rate 100% NRG Arterial blood pH measurement with patient temperature correction 7.34 7.37-7.43 Arterial blood carbon dioxide, total measurement (mole s/volume) 20.4 mmol/L 21.0-31.0 Body site left radial art NRG Assessment of wrist artery patency prior to arterial p uncture pos NRG Setting of ventilation mode YES NR G Measurement of body temperature 36 NRG Blood lactic acid measurement (moles/vol ume) - 07/23/19 08:30 Blood lactic acid measurement (moles/volume) 0.85 mmol/L 0.50-2.00 Bacterial blood culture - 07/23/19 08:30 Bacterial blood culture NG NRG Bacterial blood culture - 07/23/19 08:58 Bacterial blood culture NG NRG Complete urinalysis with reflex to cultu re - 07/23/19 09:00 Urine color determination YELLOW NRG Urine clarity determination CLEAR NR G Urine pH measurement by test strip 5 5-9 Specific gravity of urine by test strip 1.025 1.016-1.022 Urine protein assay by test strip, semi-quantitative 4+ NEGATIVE Urine glucose detection by automated test strip 2+ NEGATIVE Erythrocytes detection in urine sediment by light micr oscopy 2+ NEGATIVE Urine ketones detection by automated test strip NE GATIVE NEGATIVE Urine nitrite detection by test strip NEGATIVE NEGATIVE Urine total bilirubin detection by test strip 1+ NEGATIVE Urine urobilinogen measurement by automated test strip (mass/volume) 4 mg/dL NORMAL Urine leukocyte esterase detection by dipstick 1+ NEGATIVE Automated urine sediment erythrocyte cou nt by microscopy (number/high power field) [HPF] NRG Automated urine sediment leukocyte count by microscopy (number/high power field) [HPF] NRG Bacteria detection in urine sediment by light microsco py FEW NRG Squamous epithelial cells detection in u rine sediment by light microscopy 2-5 NRG Crystals detection in urine sediment by light microsco py NONE NRG Casts detection in urine sediment by light microscopy PRESENT NRG Mucus detection in urine sediment by light microscopy NEGATIVE NRG Complete urinalysis with reflex to culture YES NRG Hyaline casts detection in urine sediment by light yonis roscopy 5-10 NRG Renal epithelial cells detection in urin e sediment by light microscopy 5-10 NRG Bacterial urine culture - 07/23/19 09:00 Bacterial urine culture NG NRG Capillary blood glucose measurement by g lucometer (mass/volume) - 07/23/19 11:57 Capillary blood glucose measurement by glucometer (mas s/volume) 270 mg/dL 70-110 Capillary blood glucose measurement by g lucometer (mass/volume) - 07/23/19 18:00 Capillary blood glucose measurement by glucometer (mas s/volume) 210 mg/dL 70-110 Capillary blood glucose measurement by g lucometer (mass/volume) - 07/24/19 00:04 Capillary blood glucose measurement by glucometer (mas s/volume) 180 mg/dL 70-110 Complete blood count (CBC) with automate d white blood cell (WBC) differential - 07/24/19 03:08 Blood leukocytes automated count (number/volume) 10.6 10*3/uL 4.3-11.0 Blood erythrocytes automated count (number/volume) 4.68 10*6/uL 4.35-5.85 Venous blood hemoglobin measurement (mass/volume) 14.7 g/dL 13.3-17.7 Blood hematocrit (volume fraction) 43 % 40-54 Automated erythrocyte mean corpuscular volume 93 [ foz_us] 80-99 Automated erythrocyte mean corpuscular h emoglobin (mass per erythrocyte) 31 pg 25-34 Automated erythrocyte mean corpuscular h emoglobin concentration measurement (mass/volume) 34 g/dL 32-36 Automated erythrocyte distribution width ratio 12. 9 % 10.0- 14.5 Automated blood platelet count (count/volume) 244 10*3/uL 130-400 Automated blood platelet mean volume measurement 10.6 [foz_us] 7.4-10.4 Automated blood neutrophils/100 leukocytes 64 % 42-75 Automated blood lymphocytes/100 leukocytes 23 % 12-44 Blood monocytes/100 leukocytes 13 % 0-12 Automated blood eosinophils/100 leukocytes 0 % 0-10 Automated blood basophils/100 leukocytes 0 % 0-10 Blood neutrophils automated count (number/volume) 6.8 10*3 1.8-7.8 Blood lymphocytes automated count (number/volume) 2.4 10*3 1.0-4.0 Blood monocytes automated count (number/volume) 1. 4 10*3 0.0-1.0 Automated eosinophil count 0.0 10*3/uL 0 .0-0.3 Automated blood basophil count (count/volume) 0.0 10*3/uL 0.0-0.1 Arterial blood gas measurement - 9 03:08 Blood pCO2 29 mm[Hg] 35-45 Blood pO2 86 mm[Hg] 79-93 Arterial blood bicarbonate measurement (moles/volume) 16 mmol/L 23-27 Arterial blood base excess by calculation -8.9 mmo l/L -2.5-2.5 Arterial blood oxygen saturation measurement 96 % 94-100 * Inhaled oxygen flow rate 30% NRG Arterial blood pH measurement with patient temperature correction 7.35 7.37-7.43 Arterial blood carbon dioxide, total measurement (mole s/volume) 16.4 mmol/L 21.0-31.0 Body site LEFT RADIAL ARTLINE NRG Assessment of wrist artery patency prior to arterial p uncture ARTLINE NRG Setting of ventilation mode YES NR G Measurement of body temperature 36.8 NRG Whole blood basic metabolic panel - 07/07 06/24 03:08 Serum or plasma sodium measurement (moles/volume) 130 mmol/L 135-145 Serum or plasma potassium measurement (moles/volume) 4.5 mmol/L 3.6-5.0 Serum or plasma chloride measurement (moles/volume) 105 mmol/L 98-107 Carbon dioxide 16 mmol/L 21-32 Serum or plasma anion gap determination (moles/volume) 9 mmol/L 5-14 Serum or plasma urea nitrogen measurement (mass/volume ) 35 mg/dL 7-18 Serum or plasma creatinine measurement (mass/volume) 1.26 mg/dL 0.60-1.30 Serum or plasma urea nitrogen/creatinine mass ratio 28 NRG Serum or plasma creatinine measurement w ith calculation of estimated glomerular filtration rate > NRG Serum or plasma glucose measurement (mass/volume) 125 mg/dL 70-105 Serum or plasma calcium measurement (mass/volume) 7.8 mg/dL 8.5-10.1 Serum or plasma phosphate measurement (m ass/volume) - 07/24/19 03:08 Serum or plasma phosphate measurement (mass/volume) 5.0 mg/dL 2.3-4.7 Magnesium - 07/24/19 03:08 Magnesium 2.0 mg/dL 1.6-2.4 Capillary blood glucose measurement by g lucometer (mass/volume) - 07/24/19 11:37 Capillary blood glucose measurement by glucometer (mas s/volume) 174 mg/dL 70-110 Complete urinalysis with reflex to cultu re - 11/23/19 00:08 Urine color determination YELLOW NRG Urine clarity determination CLEAR NR G Urine pH measurement by test strip 6.0 5-9 Specific gravity of urine by test strip 1.010 1.016-1.022 Urine protein assay by test strip, semi-quantitative NEGATIVE NEGATIVE Urine glucose detection by automated test strip 3+ NEGATIVE Erythrocytes detection in urine sediment by light micr oscopy NEGATIVE NEGATIVE Urine ketones detection by automated test strip NE GATIVE NEGATIVE Urine nitrite detection by test strip NEGATIVE NEGATIVE Urine total bilirubin detection by test strip NEGA TIVE NEGATIVE Urine urobilinogen measurement by automated test strip (mass/volume) 0.2 mg/dL < = 1.0 Urine leukocyte esterase detection by dipstick NEG ATIVE NEGATIVE Automated urine sediment erythrocyte cou nt by microscopy (number/high power field) [HPF] NRG Automated urine sediment leukocyte count by microscopy (number/high power field) RARE NRG Bacteria detection in urine sediment by light microsco py NEGATIVE NRG Squamous epithelial cells detection in u rine sediment by light microscopy 0-2 NRG Crystals detection in urine sediment by light microsco py NONE NRG Casts detection in urine sediment by light microscopy NONE NRG Mucus detection in urine sediment by light microscopy NEGATIVE NRG Complete urinalysis with reflex to culture NO NRG Urine drug screening test - 11/23/19 00: 08 Urine phencyclidine detection by screening method NEGATIVE NEGATIVE Urine benzodiazepines detection by screening method NEGATIVE NEGATIVE Urine cocaine detection NEGATIVE NEGATI VE Urine amphetamines detection by screening method N EGATIVE NEGATIVE Urine methamphetamine detection by screening method NEGATIVE NEGATIVE Urine cannabinoids detection by screening method P OSITIVE NEGATIVE Urine opiates detection by screening method NEGATI VE NEGATIVE Urine barbiturates detection NEGATIVE N EGATIVE Screening urine tricyclic antidepressants detection NEGATIVE NEGATIVE Urine methadone detection by screening method NEGA TIVE NEGATIVE Urine oxycodone detection NEGATIVE NEGA TIVE Urine propoxyphene detection NEGATIVE N EGATIVE Bacterial blood culture - 11/23/19 22:48 Bacterial blood culture NG NRG Gram stain microscopy - 11/23/19 23:10 Gram stain microscopy Few Gram positive cocci in c hains NRG Bacteria identification in wound by cult ure - 11/23/19 23:10 Bacteria identification in wound by culture [id number] NRG FREE TEXT EXTERNAL SUSCEPTIBILITY REPORTED 11/26 10 :55 NRG QUANTITY OF GROWTH Abundant Growth NRG FREE TEXT ENTRY 2 PRESUMPTIVE MSSA; SCREENING AT V NRG FREE TEXT ENTRY 3 PRELIM ID TEST AT [facility] 11/25 08:00 NRG FREE TEXT ENTRY 4 RML CONFIRMED ID 11/26/19 10:05 NRG Dirithromycin susceptibility test by dis k diffusion - 11/23/19 23:10 Oxacillin susceptibility test by minimum inhibitory co ncentration 0.5 NRG Clindamycin susceptibility test by minimum inhibitory concentration <= NRG Erythromycin susceptibility test by minimum inhibitory concentration <= NRG Trimethoprim/sulfamethoxazole susceptibi lity test by minimum inhibitoryconcentration <= NRG Vancomycin susceptibility test by minimum inhibitory c oncentration 1 NRG Levofloxacin susceptibility test by minimum inhibitory concentration <= NRG Rifampin susceptibility test by minimum inhibitory con centration <= NRG Cefazolin susceptibility test by minimum inhibitory co ncentration <= NRG Linezolid susceptibility test by minimum inhibitory co ncentration 2 NRG Moxifloxacin susceptibility test by minimum inhibitory concentration <= NRG Minocycline susc YONIS <= NRG Complete blood count (CBC) with automate d white blood cell (WBC) differential - 11/23/19 23:17 Blood leukocytes automated count (number/volume) 11.3 10*3/uL 4.3-11.0 Blood erythrocytes automated count (number/volume) 4.76 10*6/uL 4.35-5.85 Venous blood hemoglobin measurement (mass/volume) 15.4 g/dL 13.3-17.7 Blood hematocrit (volume fraction) 44 % 40-54 Automated erythrocyte mean corpuscular volume 92 [ foz_us] 80-99 Automated erythrocyte mean corpuscular h emoglobin (mass per erythrocyte) 32 pg 25-34 Automated erythrocyte mean corpuscular h emoglobin concentration measurement (mass/volume) 35 g/dL 32-36 Automated erythrocyte distribution width ratio 11. 5 % 10.0- 14.5 Automated blood platelet count (count/volume) 340 10*3/uL 130-400 Automated blood platelet mean volume measurement 10.0 [foz_us] 7.4-10.4 Automated blood neutrophils/100 leukocytes 67 % 42-75 Automated blood lymphocytes/100 leukocytes 22 % 12-44 Blood monocytes/100 leukocytes 9 % 0-12 Automated blood eosinophils/100 leukocytes 1 % 0-10 Automated blood basophils/100 leukocytes 0 % 0-10 Blood neutrophils automated count (number/volume) 7.6 10*3 1.8-7.8 Blood lymphocytes automated count (number/volume) 2.5 10*3 1.0-4.0 Blood monocytes automated count (number/volume) 1. 0 10*3 0.0-1.0 Automated eosinophil count 0.1 10*3/uL 0 .0-0.3 Automated blood basophil count (count/volume) 0.0 10*3/uL 0.0-0.1 Comprehensive metabolic panel - 11/23/19 23:17 Serum or plasma sodium measurement (moles/volume) 130 mmol/L 135-145 Serum or plasma potassium measurement (moles/volume) 5.2 mmol/L 3.6-5.0 Serum or plasma chloride measurement (moles/volume) 90 mmol/L 98-107 Carbon dioxide 28 mmol/L 21-32 Serum or plasma anion gap determination (moles/volume) 12 mmol/L 5-14 Serum or plasma urea nitrogen measurement (mass/volume ) 10 mg/dL 7-18 Serum or plasma creatinine measurement (mass/volume) 0.71 mg/dL 0.60-1.30 Serum or plasma urea nitrogen/creatinine mass ratio 14 NRG Serum or plasma creatinine measurement w ith calculation of estimated glomerular filtration rate > NRG Serum or plasma glucose measurement (mass/volume) 493 mg/dL 70-105 Serum or plasma calcium measurement (mass/volume) 9.7 mg/dL 8.5-10.1 Serum or plasma total bilirubin measurement (mass/volu me) 0.4 mg/dL 0.1-1.0 Serum or plasma alkaline phosphatase ephraim surement (enzymatic activity/volume) 131 U/L 40-136 Serum or plasma aspartate aminotransfera se measurement (enzymatic activity/volume) 31 U/L 5-34 Serum or plasma alanine aminotransferase measurement (enzymatic activity/volume) 41 U/L 0-55 Serum or plasma protein measurement (mass/volume) 7.7 g/dL 6.4-8.2 Serum or plasma albumin measurement (mass/volume) 4.1 g/dL 3.2-4.5 CALCIUM CORRECTED 9.6 mg/dL 8.5-10.1 Blood lactic acid measurement (moles/vol ume) - 11/24/19 00:01 Blood lactic acid measurement (moles/volume) 1.67 mmol/L 0.50-2.00 Capillary blood glucose measurement by g lucometer (mass/volume) - 11/24/19 00:22 Capillary blood glucose measurement by glucometer (mas s/volume) 402 mg/dL 70-110 Capillary blood glucose measurement by g lucometer (mass/volume) - 11/24/19 04:12 Capillary blood glucose measurement by glucometer (mas s/volume) 179 mg/dL 70-110 Complete blood count (CBC) with automate d white blood cell (WBC) differential - 11/24/19 04:13 Blood leukocytes automated count (number/volume) 9.9 10*3/uL 4.3-11.0 Blood erythrocytes automated count (number/volume) 4.04 10*6/uL 4.35-5.85 Venous blood hemoglobin measurement (mass/volume) 12.7 g/dL 13.3-17.7 Blood hematocrit (volume fraction) 37 % 40-54 Automated erythrocyte mean corpuscular volume 92 [ foz_us] 80-99 Automated erythrocyte mean corpuscular h emoglobin (mass per erythrocyte) 31 pg 25-34 Automated erythrocyte mean corpuscular h emoglobin concentration measurement (mass/volume) 34 g/dL 32-36 Automated erythrocyte distribution width ratio 11. 9 % 10.0- 14.5 Automated blood platelet count (count/volume) 268 10*3/uL 130-400 Automated blood platelet mean volume measurement 10.4 [foz_us] 7.4-10.4 Automated blood neutrophils/100 leukocytes 58 % 42-75 Automated blood lymphocytes/100 leukocytes 30 % 12-44 Blood monocytes/100 leukocytes 10 % 0-12 Automated blood eosinophils/100 leukocytes 1 % 0-10 Automated blood basophils/100 leukocytes 0 % 0-10 Blood neutrophils automated count (number/volume) 5.8 10*3 1.8-7.8 Blood lymphocytes automated count (number/volume) 3.0 10*3 1.0-4.0 Blood monocytes automated count (number/volume) 1. 0 10*3 0.0-1.0 Automated eosinophil count 0.1 10*3/uL 0 .0-0.3 Automated blood basophil count (count/volume) 0.0 10*3/uL 0.0-0.1 Comprehensive metabolic panel - 11/24/19 04:13 Serum or plasma sodium measurement (moles/volume) 136 mmol/L 135-145 Serum or plasma potassium measurement (moles/volume) 3.9 mmol/L 3.6-5.0 Serum or plasma chloride measurement (moles/volume) 104 mmol/L 98-107 Carbon dioxide 22 mmol/L 21-32 Serum or plasma anion gap determination (moles/volume) 10 mmol/L 5-14 Serum or plasma urea nitrogen measurement (mass/volume ) 13 mg/dL 7-18 Serum or plasma creatinine measurement (mass/volume) 0.72 mg/dL 0.60-1.30 Serum or plasma urea nitrogen/creatinine mass ratio 18 NRG Serum or plasma creatinine measurement w ith calculation of estimated glomerular filtration rate > NRG Serum or plasma glucose measurement (mass/volume) 165 mg/dL 70-105 Serum or plasma calcium measurement (mass/volume) 8.1 mg/dL 8.5-10.1 Serum or plasma total bilirubin measurement (mass/volu me) 0.3 mg/dL 0.1-1.0 Serum or plasma alkaline phosphatase ephraim surement (enzymatic activity/volume) 86 U/L 40-136 Serum or plasma aspartate aminotransfera se measurement (enzymatic activity/volume) 26 U/L 5-34 Serum or plasma alanine aminotransferase measurement (enzymatic activity/volume) 31 U/L 0-55 Serum or plasma protein measurement (mass/volume) 6.0 g/dL 6.4-8.2 Serum or plasma albumin measurement (mass/volume) 3.2 g/dL 3.2-4.5 CALCIUM CORRECTED 8.7 mg/dL 8.5-10.1 Serum or plasma ethanol measurement (mas s/volume) - 11/24/19 04:13 Serum or plasma ethanol measurement (mass/volume) < mg/dL <10 Hemoglobin A1c measurement - 11/24/19 04 :13 Blood hemoglobin A1C measurement (mass/volume) 11. 9 % 4.0- 5.6 MEAN BLOOD GLUCOSE 295 % <=126 Capillary blood glucose measurement by g lucometer (mass/volume) - 11/24/19 07:46 Capillary blood glucose measurement by glucometer (mas s/volume) 338 mg/dL 70-110 Capillary blood glucose measurement by g lucometer (mass/volume) - 11/24/19 11:07 Capillary blood glucose measurement by glucometer (mas s/volume) 377 mg/dL 70-110 Capillary blood glucose measurement by g lucometer (mass/volume) - 11/24/19 14:26 Capillary blood glucose measurement by glucometer (mas s/volume) 210 mg/dL 70-110 Capillary blood glucose measurement by g lucometer (mass/volume) - 11/24/19 21:11 Capillary blood glucose measurement by glucometer (mas s/volume) 184 mg/dL 70-110 Capillary blood glucose measurement by g lucometer (mass/volume) - 11/25/19 06:16 Capillary blood glucose measurement by glucometer (mas s/volume) 107 mg/dL 70-110 Capillary blood glucose measurement by g lucometer (mass/volume) - 11/25/19 09:56 Capillary blood glucose measurement by glucometer (mas s/volume) 366 mg/dL 70-110 Capillary blood glucose measurement by g lucometer (mass/volume) - 11/25/19 15:23 Capillary blood glucose measurement by glucometer (mas s/volume) 100 mg/dL 70-110 Complete blood count (CBC) with automate d white blood cell (WBC) differential - 11/28/19 12:55 Blood leukocytes automated count (number/volume) 10.3 10*3/uL 4.3-11.0 Blood erythrocytes automated count (number/volume) 4.95 10*6/uL 4.35-5.85 Venous blood hemoglobin measurement (mass/volume) 15.8 g/dL 13.3-17.7 Blood hematocrit (volume fraction) 45 % 40-54 Automated erythrocyte mean corpuscular volume 91 [ foz_us] 80-99 Automated erythrocyte mean corpuscular h emoglobin (mass per erythrocyte) 32 pg 25-34 Automated erythrocyte mean corpuscular h emoglobin concentration measurement (mass/volume) 35 g/dL 32-36 Automated erythrocyte distribution width ratio 11. 6 % 10.0- 14.5 Automated blood platelet count (count/volume) 365 10*3/uL 130-400 Automated blood platelet mean volume measurement 9.7 [foz_us] 7.4-10.4 Automated blood neutrophils/100 leukocytes 63 % 42-75 Automated blood lymphocytes/100 leukocytes 27 % 12-44 Blood monocytes/100 leukocytes 7 % 0-12 Automated blood eosinophils/100 leukocytes 1 % 0-10 Automated blood basophils/100 leukocytes 1 % 0-10 Blood neutrophils automated count (number/volume) 6.5 10*3 1.8-7.8 Blood lymphocytes automated count (number/volume) 2.8 10*3 1.0-4.0 Blood monocytes automated count (number/volume) 0. 8 10*3 0.0-1.0 Automated eosinophil count 0.1 10*3/uL 0 .0-0.3 Automated blood basophil count (count/volume) 0.1 10*3/uL 0.0-0.1 PT panel in platelet poor plasma by coag ulation assay - 11/28/19 12:55 Prothrombin time (PT) in platelet poor plasma by coagu lation assay 12.9 s 12.2-14.7 INR in platelet poor plasma or blood by coagulation as say 0.9 0.8-1.4 Activated partial thromboplastin time (a PTT) in platelet poor plasma bycoagulation assay - 11/28/19 12:55 Activated partial thromboplastin time (a PTT) in platelet poor plasma bycoagulation assay 26 s 24-35 Comprehensive metabolic panel - 11/28/19 12:55 Serum or plasma sodium measurement (moles/volume) 133 mmol/L 135-145 Serum or plasma potassium measurement (moles/volume) 4.3 mmol/L 3.6-5.0 Serum or plasma chloride measurement (moles/volume) 93 mmol/L 98-107 Carbon dioxide 23 mmol/L 21-32 Serum or plasma anion gap determination (moles/volume) 17 mmol/L 5-14 Serum or plasma urea nitrogen measurement (mass/volume ) 14 mg/dL 7-18 Serum or plasma creatinine measurement (mass/volume) 0.58 mg/dL 0.60-1.30 Serum or plasma urea nitrogen/creatinine mass ratio 24 NRG Serum or plasma creatinine measurement w ith calculation of estimated glomerular filtration rate > NRG Serum or plasma glucose measurement (mass/volume) 302 mg/dL 70-105 Serum or plasma calcium measurement (mass/volume) 9.7 mg/dL 8.5-10.1 Serum or plasma total bilirubin measurement (mass/volu me) 0.4 mg/dL 0.1-1.0 Serum or plasma alkaline phosphatase ephraim surement (enzymatic activity/volume) 111 U/L 40-136 Serum or plasma aspartate aminotransfera se measurement (enzymatic activity/volume) 46 U/L 5-34 Serum or plasma alanine aminotransferase measurement (enzymatic activity/volume) 49 U/L 0-55 Serum or plasma protein measurement (mass/volume) 7.8 g/dL 6.4-8.2 Serum or plasma albumin measurement (mass/volume) 4.1 g/dL 3.2-4.5 CALCIUM CORRECTED 9.6 mg/dL 8.5-10.1 Magnesium - 11/28/19 12:55 Magnesium 1.7 mg/dL 1.6-2.4 Lipase - 11/28/19 12:55 Lipase 24 U/L 8-78 Serum or plasma ethanol measurement (mas s/volume) - 11/28/19 12:55 Serum or plasma ethanol measurement (mass/volume) < mg/dL <10 TROPONIN I FS - 11/28/19 12:55 TROPONIN I FS < 0.30 <0.30 PROBNP FS - 11/28/19 12:55 PROBNP FS 258.3 pg/mL <75.0 Encounters ACCT No. Visit Date/Time Discharge Status Pt. Type Provider Facility Loc./Unit Complaint [id number] 11/28/2019 12:45:00 020 17:55:00 DIS Emergency RAJANI MONGE, ALYSIA Good [facility] ER FS CHEST PAIN; NAUSEA [id number] 11/24/2019 01:05:00 17:50:00 DIS Inpatient PATY MONGE, VIELKA Donaldson [facility] 4TH LEFT ARM/SHOULDER PAIN [id number] 07/20/2019 21:47:00 019 15:15:00 DIS Inpatient GARCIA HUSTON MD Via [address] [facility] [id number] 07/20/2019 21:47:[address] Inpatient GARCIA HUSTON MD [facility]
[2020-02-16] MEDS ORDERED: NS IV 500 ML 500 ML IV STA (08:18)
--- NOTE | 2020-02-16 08:26 | ED Chest Pain ---
General Chief Complaint: Chest Pain Stated Complaint: CHEST PAIN Source: patient, EMS, RN notes reviewed, EMS notes reviewed, old records Exam Limitations: no limitations History of Present Illness Date Seen by Provider: Feb 16, 2020 Time Seen by Provider: 08:10 Initial Comments This patient is a 49-year-old male with a long history of cardiac disease and diabetes been noncompliant with medical treatment. Presents to the emergency department complaining of squeezing chest pain this morning the patient had a negative heart catheter in July 2019 however was diagnosed at that time ca rdiogenic shock with A. fib with a flutter. And ischemic cardiomyopathy. Patient has history of diabetes but does not take medication does not check his glucose. Patient also has history of methamphetamine use. And alcohol abuse. Patient admits to smoking a joint last night. Patient states he woke up this morning with a squeezing in his chest. EKG is unremarkable their transport. EMS gave patient aspirin and 2 mg of morphine without chest pain relief. We will do medical evaluation treatment is needed. 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 Associated Symptoms: No denies symptoms, No abdominal pain, No back pain, No diaphoresis, No dizziness, No edema, No fatigue, No fever/chills, No headache, No heartburn, No nausea/vomiting, No rash, No shortness of breath, No swelling/lump in chest, No syncope, No weakness Allergies and Home Medications Allergies Coded Allergies: Penicillins (Unverified Adverse Reaction, Unknown, 07/22/19) Home Medications Unable to Obtain Active Prescriptions or Reported Meds Patient Home Medication List Home Medication List Reviewed: Yes Review of Systems Review of Systems Constitutional: No no symptoms reported; see HPI; No chills, No diaphoresis, No dizziness, No fever, No malaise, No weakness, No weight gain, No weight loss, No other EENTM: No No Symptoms Reported, No See HPI, No Blurred Vision, No Double Vision, No Eye Pain, No Eye Tearing, No Ear Drainage, No Ear Pain, No Mouth Pain, No Mouth Swelling, No Nose Congestion, No Nose Pain, No Throat Pain, No Throat Swelling, No Other Respiratory: Denies No Symptoms Reported, Denies See HPI, Denies Cough, Denies Orthopnea, Denies Shortness of Air, Denies SOA With Exertion, Denies SOA at Rest, Denies Stridor, Denies Wheezing, Denies Other Cardiovascular: Denies No Symptoms Reported; See HPI, Chest Pain; Denies Edema, Denies Irregular Heart Rate, Denies Lightheadedness, Denies Palpitations, Denies Syncope, Denies Other Gastrointestinal: Denies No Symptoms Reported; See HPI; Denies Abdomen Distended, Denies Abdominal Pain, Denies Blood Streaked Stools, Denies Constipated, Denies Diarrhea, Denies Difficulty Swallowing, Denies Nausea, Denies Poor Appetite, Denies Poor Fluid Intake, Denies Rectal Bleeding, Denies Vomiting, Denies Other Genitourinary: Denies No Symptoms Reported, Denies See HPI, Denies Burning, Denies Discharge, Denies Drainage, Denies Frequency, Denies Flank Pain, Denies Hematuria, Denies Incontinence, Denies Pain, Denies Urgency, Denies Other Musculoskeletal: No no symptoms reported, No see HPI, No back pain, No gout, No joint pain, No joint swelling, No muscle pain, No muscle stiffness, No muscle cramps, No muscle twitching, No muscle weakness, No neck pain, No other Skin: No no symptoms reported, No see HPI, No change in color, No change in hair/nails, No dryness, No hx of skin cancer, No lesions, No lumps, No pruritus, No rash, No other Psychiatric/Neurological: Denies No Symptoms Reported, Denies See HPI, Denies Anxiety, Denies Depressed, Denies Emotional Problems, Denies Headache, Denies Numbness, Denies Paresthesia, Denies Pre-Existing Deficit, Denies Seizure, Denies Tingling, Denies Tremors, Denies Weakness, Denies Other All Other Systems Reviewed Negative Unless Noted: Yes Past Rdzwetc-Qneyks-Eootcq Hx Patient Social History Alcohol Use: Occasionally Uses Recreational Drug Use: Yes Drug of Choice: Marijuana, Hx of methamphetamine use Smoking Status: Current Everyday Smoker Type Used: Cigarettes 2nd Hand Smoke Exposure: No Recent Hopitalizations: Yes Physical Abuse: No Sexual Abuse: No Mistreated: No Fear: No Seasonal Allergies Seasonal Allergies: No Past Medical History Surgeries: No Cardiac Respiratory: No Cardiac: Yes (heart surgery at 16mo for hole in heart; [place] 4 months ago) Heart Attack Neurological: No Genitourinary: No Gastrointestinal: No Musculoskeletal: No Endocrine: Yes Diabetes, Insulin dep HEENT: No Cancer: No Psychosocial: Yes (substance abuse ) Anxiety Integumentary: No Blood Disorders: Yes (Hep C+) Family Medical History Other Conditions/Hx Physical Exam Vital Signs Vital Signs - First Documented Capillary Refill : Height, Weight, BMI Height: '" Weight: 192lbs. 4.0oz. [id number]; 19.00 BMI Method: General Appearance: No Apparent Distress, WD/WN, Other (patient is disheveled and unkempt. Appears not to bathe regularly.) HEENT: PERRL/EOMI, TMs Normal, Normal ENT Inspection, Pharynx Normal Neck: Full Range of Motion, Normal Inspection, Non Tender Respiratory: Chest Non Tender, Lungs Clear, Normal Breath Sounds, No Accessory Muscle Use, No Respiratory Distress Cardiovascular: Regular Rate, Rhythm, No Edema, No Gallop, No JVD, No Murmur, Normal Peripheral Pulses Gastrointestinal: Normal Bowel Sounds, No Organomegaly, No Pulsatile Mass, Non Tender Extremity: Normal Capillary Refill, Normal Inspection, Normal Range of Motion, Non Tender, No Calf Tenderness, No Pedal Edema Neurologic/Psychiatric: Alert, Oriented x3, No Motor/Sensory Deficits, Normal Mood/Affect Skin: Normal Color, Warm/Dry Procedures/Interventions Date of ETT Placement: Jul 23, 2019 Time of ETT Placement: 545 Progress/Results/Core Measures Results/Orders Lab Results Laboratory Tests Test 02/16/20 08:06 02/16/20 08:34 02/16/20 09:25 Range/Units White Blood Count 10.3 4.3-11.0 10^3/uL Red Blood Count 4.48 4.35-5.85 10^6/uL Hemoglobin 14.4 13.3-17.7 G/DL Hematocrit 42 40-54 % Mean Corpuscular Volume 93 80-99 FL Mean Corpuscular Hemoglobin 32 25-34 PG Mean Corpuscular Hemoglobin Concent 35 32-36 G/DL Red Cell Distribution Width 12.2 10.0-14.5 % Platelet Count 198 130-400 10^3/uL Mean Platelet Volume 10.9 H 7.4-10.4 FL Neutrophils (%) (Auto) 70 42-75 % Lymphocytes (%) (Auto) 19 12-44 % Monocytes (%) (Auto) 10 0-12 % Eosinophils (%) (Auto) 1 0-10 % Basophils (%) (Auto) 0 0-10 % Neutrophils # (Auto) 7.2 1.8-7.8 X 10^3 Lymphocytes # (Auto) 1.9 1.0-4.0 X 10^3 Monocytes # (Auto) 1.0 0.0-1.0 X 10^3 Eosinophils # (Auto) 0.1 0.0-0.3 10^3/uL Basophils # (Auto) 0.0 0.0-0.1 10^3/uL Prothrombin Time 12.7 12.2-14.7 SEC INR Comment 0.9 0.8-1.4 Sodium Level 134 L 135-145 MMOL/L Potassium Level 4.5 3.6-5.0 MMOL/L Chloride Level 94 L 98-107 MMOL/L Carbon Dioxide Level 28 21-32 MMOL/L Anion Gap 12 5-14 MMOL/L Blood Urea Nitrogen 13 7-18 MG/DL Creatinine 0.74 0.60-1.30 MG/DL Estimat Glomerular Filtration Rate > 60 BUN/Creatinine Ratio 18 Glucose Level 388 H 70-105 MG/DL Calcium Level 9.4 8.5-10.1 MG/DL Corrected Calcium 9.4 8.5-10.1 MG/DL Total Bilirubin 0.2 0.1-1.0 MG/DL Aspartate Amino Transf (AST/SGOT) 31 5-34 U/L Alanine Aminotransferase (ALT/SGPT) 37 0-55 U/L Alkaline Phosphatase 90 40-136 U/L Troponin I < 0.30 <0.30 NG/ML Total Protein 6.8 6.4-8.2 GM/DL Albumin 4.0 3.2-4.5 GM/DL Serum Alcohol < 10 <10 MG/DL Glucometer 265 H 70-110 MG/DL Urine Color YELLOW Urine Clarity CLEAR Urine pH 6.5 5-9 Urine Specific Eure 1.015 L 1.016-1.022 Urine Protein NEGATIVE NEGATIVE Urine Glucose (UA) 3+ H NEGATIVE Urine Ketones NEGATIVE NEGATIVE Urine Nitrite NEGATIVE NEGATIVE Urine Bilirubin NEGATIVE NEGATIVE Urine Urobilinogen 0.2 < = 1.0 MG/DL Urine Leukocyte Esterase NEGATIVE NEGATIVE Urine RBC (Auto) NEGATIVE NEGATIVE Urine RBC 2-5 H /HPF Urine WBC 2-5 /HPF Urine Squamous Epithelial Cells 0-2 /HPF Urine Crystals NONE /LPF Urine Bacteria NEGATIVE /HPF Urine Casts NONE /LPF Urine Mucus NEGATIVE /LPF Urine Culture Indicated NO Urine Opiates Screen POSITIVE H NEGATIVE Urine Oxycodone Screen NEGATIVE NEGATIVE Urine Methadone Screen NEGATIVE NEGATIVE Urine Propoxyphene Screen NEGATIVE NEGATIVE Urine Barbiturates Screen NEGATIVE NEGATIVE Ur Tricyclic Antidepressants Screen NEGATIVE NEGATIVE Urine Phencyclidine Screen NEGATIVE NEGATIVE Urine Amphetamines Screen NEGATIVE NEGATIVE Urine Methamphetamines Screen NEGATIVE NEGATIVE Urine Benzodiazepines Screen NEGATIVE NEGATIVE Urine Cocaine Screen NEGATIVE NEGATIVE Urine Cannabinoids Screen POSITIVE H NEGATIVE My Orders Orders - VERA BARBOSA MD Ed Iv/Invasive Line Start (02/16/20 08:18) Alcohol (02/16/20 08:18) Cbc With Automated Diff (02/16/20 08:18) Comprehensive Metabolic Panel (02/16/20 08:18) Drug Screen Stat (Urine) (02/16/20 08:18) Troponin I Fs (02/16/20 08:18) Urinalysis (02/16/20 08:18) Ekg Tracing (02/16/20 08:18) Chest 1 View Ap/Pa Only (02/16/20 08:18) Protime With Inr (02/16/20 08:18) Ns Iv 500 Ml (Sodium Chloride 0.9%) (02/16/20 08:18) Ondansetron Injection (Zofran Injectio (02/16/20 08:30) Lidocaine 2% Viscous 15 Ml (Xylocaine Vi (02/16/20 08:30) Antacid Suspension (Mylanta Suspension (02/16/20 08:30) Medications Given in ED Current Medications Medications Dose Ordered Sig/Scarlett Route Start Time Stop Time Status Last Admin Dose Admin Al Hydrox/Mg Hydrox/Simethicone 30 ml ONCE ONCE PO 02/16/20 08:30 02/16/20 08:31 DC 02/16/20 08:27 30 ML Lidocaine HCl 5 ml ONCE ONCE PO 02/16/20 08:30 02/16/20 08:31 DC 02/16/20 08:27 5 ML Ondansetron HCl 4 mg ONCE ONCE IVP 02/16/20 08:30 02/16/20 08:31 DC 02/16/20 08:27 4 MG Vital Signs/I&O 02/16/20 02/16/20 07:57 07:57 Temp 37.0 Pulse 83 Resp 20 B/P (MAP) 142/85 (104) Pulse Ox 96 O2 Delivery Room Air Room Air Progress Progress Note : Time: 09:16 Progress Note Negative evaluation in the emergency department. Patient's pain was completely relieved after giving a GI cocktail. According medical records patient does have a long history of gastritis and similar pain. EKG unremarkable chest ray x-ray normal. I did discuss at length with patient about options. Patient be discharged home. Encourage by mouth fluids. Maintain compliance with your medical regimen and prescriptions as prescribed by your primary care physician. Avoid drugs and alcohol. Maintain better personal hygiene care. Stop smoking. Follow-up with your primary care physician in 2-3 days. Take medications as prescribed. He had been prescribed Carafate take as directed. Initial ECG Impression Date: Feb 16, 2020 Initial ECG Impression Time: 07:57 Initial ECG Rate: 86 Initial ECG Rhythm: Normal Sinus Initial ECG Intervals: Normal Initial ECG Impression: Nonspecific Changes Comment Normal sinus rhythm with non-specific ST changes. Otherwise normal EKG. Does have motion artifact. Departure Impression Primary Impression: Acute gastritis Additional Impressions: Medical non-compliance Poor personal hygiene Disposition: 01 HOME, SELF-CARE Condition: Stable Departure-Patient Inst. Decision time for Depature: 09:46 Referrals: NO,LOCAL PHYSICIAN (PCP/Family) Primary Care Physician Patient Instructions: Chest Pain That Is Not Caused by the Heart (DC), Acid Reflux (Gastroesophageal Reflux Disease), Adult (DC) Add. Discharge Instructions: Encourage by mouth fluids. Maintain compliance with your medical regimen and prescriptions as prescribed by your primary care physician. Avoid drugs and alco hol. Maintain better personal hygiene care. Stop smoking. Follow-up with your primary care physician in 2-3 days. Take medications as prescribed. He had been prescribed Carafate take as directed. All discharge instructions reviewed with patient and/or family. Voiced understanding. Scripts Unable to Obtain Active Prescriptions or Reported Meds VERA BARBOSA MD Feb 16, 2020 08:26
[2020-02-16] MEDS ORDERED: LIDOCAINE 2% VISCOUS 15 ML UDC PO ONE (08:30)
[2020-02-16] MEDS ORDERED: ANTACID SUSP 30 ML UDC (MYLANTA) PO ONE (08:30)
[2020-02-16] MEDS ORDERED: ONDANSETRON 4 MG/2 ML (SDV) Z0FRAN IVP ONE (08:30)
[2020-02-16 08:48] LABS: BASOPHILS % (AUTO) 0 % (0-10); EOSINOPHILS # (AUTO) 0.1 10^3/uL (0.0-0.3); EOSINOPHILS % (AUTO) 1 % (0-10); HEMATOCRIT 42 % (40-54); HEMOGLOBIN 14.4 G/DL (13.3-17.7); LYMPHOCYTES # (AUTO) 1.9 X 10^3 (1.0-4.0); LYMPHOCYTES % (AUTO) 19 % (12-44); MEAN CORPUSCULAR HEMOGLOBIN 32 PG (25-34); MEAN CORPUSCULAR HGB CONC 35 G/DL (32-36); MEAN CORPUSCULAR VOLUME 93 FL (80-99); MEAN PLATELET VOLUME 10.9 FL (7.4-10.4); MONOCYTES % (AUTO) 10 % (0-12); NEUTROPHILS # (AUTO) 7.2 X 10^3 (1.8-7.8); NEUTROPHILS % (AUTO) 70 % (42-75); PLATELET COUNT 198 10^3/uL (130-400); RED CELL DISTRIBUTION WIDTH 12.2 % (10.0-14.5); WHITE BLOOD COUNT 10.3 10^3/uL (4.3-11.0)
[2020-02-16 08:49] LABS: INR 0.9 (0.8-1.4); PROTHROMBIN TIME PATIENT 12.7 SEC (12.2-14.7)
[2020-02-16 08:55] LABS: ALANINE AMINOTRANSFERASE 37 U/L (0-55); ALKALINE PHOSPHATASE 90 U/L (40-136); BILIRUBIN,TOTAL 0.2 MG/DL (0.1-1.0); BUN/CREATININE RATIO 18; CALCIUM 9.4 MG/DL (8.5-10.1); CARBON DIOXIDE 28 MMOL/L (21-32); CHLORIDE 94 MMOL/L (98-107); CREATININE SERUM 0.74 MG/DL (0.60-1.30); GFR ESTIMATED > 60; GLUCOSE 388 MG/DL (70-105); POTASSIUM 4.5 MMOL/L (3.6-5.0); SODIUM 134 MMOL/L (135-145); TOTAL PROTEIN 6.8 GM/DL (6.4-8.2)
--- NOTE | 2020-02-16 09:07 | Diagnostic Imaging Report ---
INDICATION: Chest pain Frontal chest obtained at 0837 hours a.m. and is compared to 11/28/2019. Heart and mediastinal silhouette are normal in appearance. Lungs appear clear. There is no pneumothorax or pleural fluid. IMPRESSION: No acute process in the chest and no change compared to the prior study. Dictated by: Dictated on workstation # [id number]
[2020-02-16] MEDS ORDERED: SUCR1TAB36 PO (09:18)
[2020-02-16 09:34] LABS: CLARITY,URINE CLEAR; COLOR,URINE YELLOW
[2020-02-16 09:35] LABS: BILIRUBIN,URINE NEGATIVE (NEGATIVE); GLUCOSE, URINE (UA) 3+ (NEGATIVE); KETONES,URINE NEGATIVE (NEGATIVE); LEUKOCYTE ESTERASE ,URINE NEGATIVE (NEGATIVE); NITRITE,URINE NEGATIVE (NEGATIVE); PH,URINE 6.5 (5-9); PROTEIN,URINE NEGATIVE (NEGATIVE)
[2020-02-16 09:41] LABS: BACTERIA,URINE NEGATIVE /HPF; SQUAMOUS EPITHELIAL CELL,UR 0-2 /HPF
[2020-02-16 09:43] LABS: AMPHETAMINE SCREEN, URINE NEGATIVE (NEGATIVE); BARBITURATE SCREEN URINE NEGATIVE (NEGATIVE); BENZODIAZEPINES SCREEN URINE NEGATIVE (NEGATIVE); CANNABINOID SCREEN, URINE POSITIVE (NEGATIVE); COCAINE SCREEN URINE NEGATIVE (NEGATIVE); METHADONE STAT NEGATIVE (NEGATIVE); METHAMPHETAMINE SCREEN URINE S NEGATIVE (NEGATIVE); OPIATE SCREEN URINE POSITIVE (NEGATIVE); OXYCODONE STAT NEGATIVE (NEGATIVE); PROPOXYPHENE STAT NEGATIVE (NEGATIVE); TRICYCLIC ANTIDEPRESSANTS SCRE NEGATIVE (NEGATIVE)
[2020-02-16 09:49] VITALS: BP 138/77
--- NOTE | 2020-02-16 09:49 | NUR ---
Patient discharged amb to home with pt required to find his own transportation. Pt was referred to f/u with a his provider but we are advised he does not have one. Pt advised to take medications as prescribed and pt reports he does not do accuchecks and has not been using insulin as did not desire to do them. Pt has a non-compliance to physician advise, orders and meds. Pt has a script to fill for gastritis sx. Pt improved after GI cocktail. Pt does not make eye contact during discussions.
== END 2020-02-16 09:49 | disposition home or self-care (01) ==
LOC: EDUNIT# 07:55 → ER FS 07:56
DX: K29.00 Acute gastritis without bleeding (principal); E11.9 Type 2 diabetes mellitus without complications; I25.2 Old myocardial infarction; B19.20 Unspecified viral hepatitis C without hepatic coma; R46.0 Very low level of personal hygiene; F41.9 Anxiety disorder, unspecified; F17.210 Nicotine dependence, cigarettes, uncomplicated; Z79.4 Long term (current) use of insulin; Z86.79 Personal history of other diseases of the circulatory system; Z88.0 Allergy status to penicillin; Z91.19 Patient's noncompliance with other medical treatment and regimen
CPT/HCPCS: 36415; 71045; 80053; 80306; 80320; 81000; 82962; 84484; 85025; 85610; 93005

== ENCOUNTER 2020-10-13 17:09 | Emergency (ER) | payer MEDICAID ==
[~2020-10-13] VITALS: Ht 195.6 cm; Wt 81.6 kg
[~2020-10-13 17:09] MED LIST changes: +SUCR1TAB36 PO
[2020-10-13 17:15] VITALS: BP 167/103
[2020-10-13] MEDS ORDERED: CYCL10TA9 PO (17:31)
[2020-10-13] MEDS ORDERED: IBUP-1780 PO (17:31)
--- NOTE | 2020-10-13 17:32 | ED Lower Extremity ---
General Chief Complaint: Lower Extremity Stated Complaint: SCIATIC NERVE PAIN History of Present Illness Date Seen by Provider: Oct 13, 2020 Time Seen by Provider: 17:20 Initial Comments 50-year-old male presents with right posterior thigh pain (hamstring) for 10 days. Pain with extending his leg, states he still able to walk but with discomfort. Denies injury or previous occurrence. States he "walks 30 miles a day". also states he saw his primary care physician today and was advised to come to the ER and he has a follow-up appointment with his PCP tomorrow morning. Allergies and Home Medications Allergies Coded Allergies: Penicillins (Unverified Adverse Reaction, Unknown, 07/22/19) Home Medications Cyclobenzaprine HCl 10 Mg Tablet, 10 MG PO Q8H PRN for SPASMS Prescribed by: JAH PALACIOS on 10/13/201730 Ibuprofen 800 Mg Tablet, 800 MG PO Q8H PRN for PAIN Prescribed by: JAH PALACIOS on 10/13/201730 Patient Home Medication List Home Medication List Reviewed: Yes Review of Systems Constitutional: no symptoms reported EENTM: no symptoms reported Respiratory: no symptoms reported Cardiovascular: no symptoms reported Musculoskeletal: see HPI; No back pain, No joint pain; muscle pain, muscle stiffness, muscle cramps; No muscle weakness, No neck pain Skin: No change in color, No rash Past Vfdxkhk-Wfpvyn-Jrtnjb Hx Past Med/Social Hx: Reviewed Nursing Past Med/Soc Hx Patient Social History Alcohol Use: Denies Use Recreational Drug Use: No Drug of Choice: "[place]", hx Meth on UDS Smoking Status: Current Everyday Smoker Type Used: Cigarettes 2nd Hand Smoke Exposure: Yes Recent Foreign Travel: No Contact w/Someone Who Travel: No Recent Hopitalizations: Yes Physical Abuse: No Sexual Abuse: No Mistreated: No Fear: No Seasonal Allergies Seasonal Allergies: No Past Medical History Surgeries: Yes (UGI, ? Heart Surgery per prior hx family) Cardiac Respiratory: Yes (Tobaccoism 2ppd) COPD Cardiac: Yes (heart surgery at 16mo for hole in heart; [place] 4 months ago, Systolic CHF) Atrial Fibrillation, Cardiomyopathy, Heart Attack, Irregular Heartbeat Neurological: No Genitourinary: No Gastrointestinal: Yes (Gastritis, Duodenitis, frequent alcohol intake, Hep C) Hepatitis Musculoskeletal: No Endocrine: Yes (Refuses to monitor blood sugar and to use insulin) Diabetes, Insulin dep HEENT: No Cancer: No Psychosocial: Yes (polysubstance abuse ) Anxiety Integumentary: Yes (Hidradenitis Suppurative, frequent abscesses) Blood Disorders: Yes (Hep C+) Family Medical History Other Conditions/Hx Physical Exam Vital Signs Capillary Refill : Height, Weight, BMI Height: '" Weight: 192lbs. 4.0oz. 87.069314we; 21.00 BMI Method: General Appearance: WD/WN, no apparent distress Cardiovascular: regular rate, rhythm, no edema, no gallop, no JVD Respiratory: chest non-tender, lungs clear Hips: right hip non-tender, right hip normal inspection, right hip no evidence of injury Legs: right leg non-tender, right leg normal inspection, right leg no evidence of injury Knees: right knee non-tender, right knee normal inspection, right knee no evidence of injury Ankles: right ankle non-tender, right ankle normal inspection, right ankle no evidence of injury Feet: right foot non-tender, right foot normal inspection, right foot no e vidence of injury Neurologic/Psychiatric: no motor/sensory deficits, alert Skin: normal color, warm/dry palpable spasm and tenderness of R hamstring muscle without gross abnormality. NVI, no joint tendeness of hip, knee or ankle. Procedures/Interventions Date of ETT Placement: Jul 23, 2019 Time of ETT Placement: 545 Departure Impression Primary Impression: Hamstring muscle strain Qualified Codes: S76.311A - Strain of muscle, fascia and tendon of the p osterior muscle group at thigh level, right thigh, initial encounter Disposition: 01 HOME, SELF-CARE Condition: Stable Departure-Patient Inst. Decision time for Depature: 17:30 Referrals: NO,LOCAL PHYSICIAN (PCP/Family) Primary Care Physician Patient Instructions: Hamstring Muscle Strain (DC) Add. Discharge Instructions: See your PCP as scheduled tomorrow. Ask about getting some Physical therapy to assist with your hamstring spasm All discharge instructions reviewed with patient and/or family. Voiced understanding. Scripts Ibuprofen (Ibuprofen) 800 Mg Tablet 800 MG PO Q8H PRN for PAIN, #30 TAB 0 Refills Prov: JAH PALACIOS DO 10/13/20 Cyclobenzaprine HCl (Cyclobenzaprine HCl) 10 Mg Tablet 10 MG PO Q8H PRN for SPASMS, #15 TAB 0 Refills Prov: JAH PALACIOS DO 10/13/20 JAH PALACIOS DO Oct 13, 2020 17:31
== END 2020-10-13 17:36 | disposition home or self-care (01) ==
LOC: EDUNIT# 17:09 → ER FS 17:11
DX: S76.311A Strain of muscle, fascia and tendon of the posterior muscle group at thigh level, right thigh, initial encounter (principal); I25.2 Old myocardial infarction; F17.210 Nicotine dependence, cigarettes, uncomplicated; Z88.0 Allergy status to penicillin; X58.XXXA Exposure to other specified factors, initial encounter
CPT/HCPCS: 99283

== ENCOUNTER 2020-10-16 11:47 | Inpatient (IN) | payer MEDICAID ==
[~2020-10-16] VITALS: Ht 193 cm; Wt 73.0 kg
[~2020-10-16 11:47] MED LIST changes: +CYCL10TA9 PO; +IBUP-1780 PO
[2020-10-16] MEDS ORDERED: LACTATED RINGERS 1,000 ML IV STA (12:06)
--- NOTE | 2020-10-16 12:14 | ED Chest Pain ---
General Chief Complaint: Chest Pain Stated Complaint: CHEST PAIN Nursing Triage Note: Patient reports chest pain that is tender to palpation for 3 weeks, states it became worse after receiving medications in [facility] clinic today. Report received from [facility] provider that patient had a venous ultrasound of his right leg today with diagnosis of vasculitis. Back of right leg swollen and reddened. Nursing Sepsis Screen: No Definite Risk Source: patient Exam Limitations: no limitations History of Present Illness Date Seen by Provider: Oct 16, 2020 Time Seen by Provider: 11:46 Initial Comments The patient presents to the ER by wheelchair from the clinic next-door with chief complaint he has been having worsening chest pain today when they were pressing on his right leg for an ultrasound. He says the chest pain has been reproducible to direct palpation and started about 3 weeks ago. He also had some red warm swelling on the back of his right thigh. A couple days ago they did blood work and today they did an ultrasound. Nursing staff spoke to the clinic and was told that it was vasculitis but the patient says he was told it was a blood clot. The patient says he has been told multiple times he is never had a heart attack but he thinks he has had 2. He follows with a operator command support systems at but he does not know the name. Primary care is through [facility] and he sees a real estate assessor at [facility] for his hepatitis C but is not on therapy for this yet. He denies a history of hyperlipidemia or hypertension but he does have a history of smoking a pack per day and insulin-dependent diabetes. The pain is on the left side of his chest, 7 out of 10 and he has been using ibuprofen for it. Nursing staff says the clinic gave him a shot of Toradol for his chest pain today but he denies that it helped. Is not having a history of GERD, nausea, sweats. 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 Allergies and Home Medications Allergies Coded Allergies: Penicillins (Unverified Adverse Reaction, Unknown, 07/22/19) Home Medications Cyclobenzaprine HCl 10 Mg Tablet, 10 MG PO Q8H PRN for SPASMS Prescribed by: JAH PALACIOS on 10/13/201730 Ibuprofen 800 Mg Tablet, 800 MG PO Q8H PRN for PAIN Prescribed by: JAH PALACIOS on 12/8/20 1731 Patient Home Medication List Home Medication List Reviewed: Yes Review of Systems Review of Systems Constitutional: No chills, No diaphoresis EENTM: No Blurred Vision, No Double Vision Respiratory: Denies Cough, Denies Shortness of Air Cardiovascular: Chest Pain; Denies Edema, Denies Lightheadedness, Denies Syncope Gastrointestinal: Denies Constipated, Denies Diarrhea, Denies Nausea Genitourinary: Denies Burning, Denies Discharge Musculoskeletal: No back pain, No joint pain Skin: see HPI All Other Systems Reviewed Negative Unless Noted: Yes Past Mnilttp-Cklzio-Fhmtup Hx Patient Social History Alcohol Use: Denies Use Recreational Drug Use: Yes Drug of Choice: "[place]", hx Meth on UDS Smoking Status: Current Everyday Smoker Type Used: Cigarettes (Pack per day) 2nd Hand Smoke Exposure: Yes Recent Foreign Travel: No Contact w/Someone Who Travel: No Recent Infectious Disease Expo: No Recent Hopitalizations: Yes Seasonal Allergies Seasonal Allergies: No Past Medical History Surgeries: Yes (UGI, ? Heart Surgery per prior hx family) Cardiac Respiratory: Yes (Tobaccoism 2ppd) COPD Cardiac: Yes (heart surgery at 16mo for hole in heart; DC 4 months ago, Systolic CHF) Atrial Fibrillation, Cardiomyopathy, Heart Attack, Irregular Heartbeat Neurological: No Genitourinary: No Gastrointestinal: Yes (Gastritis, Duodenitis, frequent alcohol intake, Hep C) Hepatitis Musculoskeletal: No Endocrine: Yes (Refuses to monitor blood sugar and to use insulin) Diabetes, Insulin dep HEENT: No Cancer: No Psychosocial: Yes (polysubstance abuse ) Anxiety Integumentary: Yes (Hidradenitis Suppurative, frequent abscesses) Blood Disorders: Yes (Hep C+) Family Medical History Other Conditions/Hx Physical Exam Vital Signs Vital Signs - First Documented 10/16/20 11:54 Temp 36.4 Pulse 108 Resp 14 B/P (MAP) 115/84 (94) Pulse Ox 98 O2 Delivery Room Air Capillary Refill : Less Than 3 Seconds Height, Weight, BMI Height: '" Weight: 192lbs. 4.0oz. 87.663108tr; 21.00 BMI Method: General Appearance: Chronically ill, Mild Distress HEENT: PERRL/EOMI, Pharynx Normal, Moist Mucous Membranes Neck: Full Range of Motion, Normal Inspection Respiratory: Lungs Clear, Normal Breath Sounds, No Accessory Muscle Use, No Respiratory Distress (99% on room air with nonlabored breathing), Other (Chest pain is acutely reproduced by direct palpation over his left anterior chest.) Cardiovascular: Regular Rate, Rhythm, No Edema, Normal Peripheral Pulses Gastrointestinal: Normal Bowel Sounds, No Organomegaly, Non Tender, Soft Extremity: Normal Capillary Refill, Other (Erythema and tenderness over the right posterior thigh) Neurologic/Psychiatric: Alert, Oriented x3 Focused Exam Sepsis Stage: Sepsis Possible Source: Skin/Soft Tissue Lactate Level 10/16/20 13:43: Time of Focused Exam: 14:11 Respiratory: Lungs Clear, Normal Breath Sounds, No Accessory Muscle Use, No Respiratory Distress Cardiovascular: Regular Rate, Rhythm (90), No Edema, Normal Peripheral Pulses Capillary Refill: Less Than 3 Seconds Peripheral Pulses: 2+ Radial Pulses (R), 2+ Radial Pulses (L) Skin: warm/dry, rash Lactic Acid Level Laboratory Tests Test 10/16/20 13:43 Within 3hrs of presentation: Admin fluids, Admin ABX, Blood cultures prior to ABX's, Focus exam, Lactate level Procedures/Interventions Date of ETT Placement: Jul 23, 2019 Time of ETT Placement: 05 Progress/Results/Core Measures Results/Orders Lab Results Laboratory Tests Test 10/16/20 12:05 10/16/20 13:43 Range/Units White Blood Count 32.7 *H 4.3-11.0 10^3/uL Red Blood Count 4.81 4.35-5.85 10^6/uL Hemoglobin 15.5 13.3-17.7 G/DL Hematocrit 45 40-54 % Mean Corpuscular Volume 93 80-99 FL Mean Corpuscular Hemoglobin 32 25-34 PG Mean Corpuscular Hemoglobin Concent 35 32-36 G/DL Red Cell Distribution Width 11.3 10.0-14.5 % Platelet Count 349 130-400 10^3/uL Mean Platelet Volume 10.2 7.4-10.4 FL Immature Granulocyte % (Auto) 1 % Neutrophils (%) (Auto) 85 H 42-75 % Lymphocytes (%) (Auto) 4 L 12-44 % Monocytes (%) (Auto) 10 0-12 % Eosinophils (%) (Auto) 0 0-10 % Basophils (%) (Auto) 0 0-10 % Neutrophils # (Auto) 27.8 H 1.8-7.8 X 10^3 Lymphocytes # (Auto) 1.4 1.0-4.0 X 10^3 Monocytes # (Auto) 3.1 H 0.0-1.0 X 10^3 Eosinophils # (Auto) 0.0 0.0-0.3 10^3/uL Basophils # (Auto) 0.1 0.0-0.1 10^3/uL Immature Granulocyte # (Auto) 0.3 H 0.0-0.1 10^3/uL Neutrophils % (Manual) 67 % Lymphocytes % (Manual) 3 % Monocytes % (Manual) 10 % Eosinophils % (Manual) 0 % Basophils % (Manual) 0 % Band Neutrophils 20 % Blood Morphology Comment NORMAL Prothrombin Time 14.3 12.2-14.7 SEC INR Comment 1.1 0.8-1.4 Activated Partial Thromboplast Time 28 24-35 SEC Sodium Level 127 L 135-145 MMOL/L Potassium Level 4.4 3.6-5.0 MMOL/L Chloride Level 87 L 98-107 MMOL/L Carbon Dioxide Level 22 21-32 MMOL/L Anion Gap 18 H 5-14 MMOL/L Blood Urea Nitrogen 30 H 7-18 MG/DL Creatinine 0.87 0.60-1.30 MG/DL Estimat Glomerular Filtration Rate > 60 BUN/Creatinine Ratio 34 Glucose Level 350 H 70-105 MG/DL Calcium Level 9.5 8.5-10.1 MG/DL Corrected Calcium 10.1 8.5-10.1 MG/DL Magnesium Level 2.0 1.6-2.4 MG/DL Total Bilirubin 0.4 0.1-1.0 MG/DL Aspartate Amino Transf (AST/SGOT) 20 5-34 U/L Alanine Aminotransferase (ALT/SGPT) 20 0-55 U/L Alkaline Phosphatase 123 40-136 U/L Myoglobin 87.8 10.0-92.0 NG/ML Troponin I < 0.30 <0.30 NG/ML Pro-B-Type Natriuretic Peptide 398.9 H <75.0 PG/ML Total Protein 7.2 6.4-8.2 GM/DL Albumin 3.3 3.2-4.5 GM/DL Lipase 32 8-78 U/L My Orders Orders - RYAN LESLIE Continuous Ekg Monitoring (10/16/20 11:50) Ekg Tracing (10/16/20 11:50) Cbc With Automated Diff (10/16/20 12:06) Magnesium (10/16/20 12:06) Chest 1 View Ap/Pa Only (10/16/20 12:06) Comprehensive Metabolic Panel (10/16/20 12:06) Myoglobin Serum (10/16/20 12:06) Protime With Inr (10/16/20 12:06) Partial Thromboplastin Time (10/16/20 12:06) O2 (10/16/20 12:06) Lipid Panel (10/17/20 06:00) Aspirin Chewable Tablet (Baby Aspirin Ch (10/16/20 12:15) Nitroglycerin 0.4 Mg Btl 25's (Nitrostat (10/16/20 12:15) Ed Iv/Invasive Line Start (10/16/20 12:06) Lipase (10/16/20 12:06) Troponin I Fs (10/16/20 12:06) Probnp Fs (10/16/20 12:06) Ct Angio Chest W (10/16/20 12:06) Lactated Ringers (Lr 1000 Ml Iv Solution (10/16/20 12:06) Manual Differential (10/16/20 12:05) Iohexol Injection (Omnipaque 350 Mg/Ml 1 (10/16/20 13:00) Received Contrast (Hold Metformin- Contr (10/16/20 13:00) Sodium Chloride Flush (Catheter Flush Sy (10/16/20 13:00) Ns (Ivpb) (Sodium Chloride 0.9% Ivpb Bag (10/16/20 13:00) Lactated Ringers (Lr 1000 Ml Iv Solution (10/16/20 13:30) Blood Culture (10/16/20 13:17) Lactic Acid Analyzer (10/16/20 13:17) Ceftriaxone For Iv Use (Rocephin For I (10/16/20 13:30) Hydrocodone/Apap 5/325 Tablet (Lortab 5 (10/16/20 13:30) Vancomycin 1,500 Mg Iv (10/16/20 14:15) Medications Given in ED Current Medications Medications Dose Ordered Sig/Scarlett Route Start Time Stop Time Status Last Admin Dose Admin Acetaminophen/ Hydrocodone Bitart 1 tab ONCE ONCE PO 10/16/20 13:30 10/16/20 13:31 DC 10/16/20 14:00 1 TAB Aspirin 324 mg ONCE ONCE PO 10/16/20 12:15 10/16/20 12:16 DC 10/16/20 12:15 324 MG Ceftriaxone Sodium 1000 mg/ Sterile Water 10 ml @ 200 mls/hr ONCE ONCE IV 10/16/20 13:30 10/16/20 13:32 DC 10/16/20 14:00 200 MLS/HR Iohexol 100 ml ONCE ONCE IV 10/16/20 13:00 10/16/20 13:01 DC 10/16/20 13:20 100 ML Lactated Ringer's 1,000 ml @ 0 mls/hr Q0M ONCE IV 10/16/20 13:30 10/16/20 13:31 DC 10/16/20 14:07 1,000 MLS/HR Nitroglycerin 0.4 mg UD PRN SL 10/16/20 12:15 10/16/20 12:15 0.4 MG Sodium Chloride 10 ml NEEDED PRN IV 10/16/20 13:00 10/16/20 13:20 10 ML Sodium Chloride 100 ml ONCE ONCE IV 10/16/20 13:00 10/16/20 13:01 DC 10/16/20 13:20 100 ML Vital Signs/I&O 10/16/20 10/16/20 11:54 12:22 Temp 36.4 Pulse 108 107 Resp 14 20 B/P (MAP) 115/84 (94) 107/74 (85) Pulse Ox 98 96 O2 Delivery Room Air Room Air Blood Pressure Mean: 94 Progress Progress Note #1: Time: 12:14 Progress Note We will give him 324 mg of aspirin. His initial EKG is revealing only of sinus tachycardia. Clinic staff says there was no blood clot but he claims he was told there was a blood clot. He also claims to have had a history of heart attacks. Known risk factors include diabetes smoking hepatitis. Plan to go ahead and get a CT angiogram of his chest if his kidneys will allow it to rule out pulmonary embolism as he does have tachycardia 105. If his blood pressure will tolerate it we will give him a dose of nitroglycerin to see if that helps his pain. If not we can trial a dose of morphine. We will check a lipase. He has not tender in his abdomen to suggest a referred pain. Progress Note #2: Time: 12:26 Progress Note After a single dose of nitroglycerin the patient's blood pressure is 107 systolic. He is resting significantly more comfortable rating his pain at 4 out of 10. Staff clarified the ultrasound done today and had a copy faxed to us. The impression is there is no evidence of right lower extremity femoral-popliteal deep venous thrombosis. There will be an addendum added on eventually stating that there was superficial venous thrombosis seen. Progress Note #3: Time: 13:19 Progress Note Based on his tachycardia and elevated white count and right leg cellulitis we did complete a septic work-up and gave him 2 L of fluids which is between 20 and 30 mL/kg. Will trial Rocephin. He does not know what penicillin does to him he was just told that was an allergy by his mother. Blood cultures and lactate have been ordered. We have discussed outpatient versus inpatient treatment for his thigh. We will get a CT of his chest and if there appears to be a pneumonia or other mildly then we may push him to stay in the hospital. It may be reasonable however to trial outpatient therapy first given his relatively young age and the fact that he has not been on outpatient treatment yet as well as the relative paucity of beds given the global pandemic. The addendum to the original ultrasound was faxed over demonstrating superficial thrombus seen in the right greater saphenous vein in the mid thigh to the prox imal lower leg. He still rates his pain as a 4 out of 10. We will give a dose of hydrocodone. Progress Note #4: Time: 13:55 Progress Note Patient states he would be okay with admitting to the hospital at this time. Working on the second blood culture. IV antibiotics have not been given yet. Patient has multiple active sores that could be consistent with injection sites on his left forearm. Plan to go ahead and cover him against MRSA. Rocephin has already been given so we will give him vancomycin 1.5 g in the ER. Initial ECG Impression Date: Oct 16, 2020 Initial ECG Impression Time: 11:51 Initial ECG Rate: 107 Initial ECG Rhythm: S.Tach Initial ECG Intervals: Normal Initial ECG Impression: Nonspecific Changes Comment Sinus tachycardia without clinically relevant ST changes. Diagnostic Imaging Diagonstic Imaging: Xray Plain Films/CT/US/NM/MRI: chest Comments [facility], [facility]. [place], [place] NAME: LEONOR LAZARO [facility] REC#: [id number] PT STATUS: REG ER : 1970 PHYSICIAN: RYAN LESLIE MD ADMIT DATE: 10/16/20/ER FS Draft Date of Exam:10/16/20 CHEST 1 VIEW AP/PA ONLY PATIENT HISTORY: cp. TECHNIQUE: Single frontal view of the chest. COMPARISON: 02/16/2020. FINDINGS: The lung volumes are normal. No focal consolidation is seen. No large pleural effusion or pneumothorax is seen. The cardiomediastinal silhouette is normal in size and contour. No acute osseous abnormality is seen. IMPRESSION: No acute pulmonary abnormality seen. Dictated on workstation # [id number] Dict: 10/16/20 1254 Trans: 10/16/20 1257 [id number] Interpreted by: KALLI PERSAUD MD Electronically signed by: Reviewed: Reviewed by [place] Diagonstic Imaging: CT (Angiogram) Plain Films/CT/US/NM/MRI: chest Comments NAME: LEONOR LAZARO [facility] REC#: [id number] PT STATUS: REG ER : 1970 PHYSICIAN: RYAN LESLIE MD ADMIT DATE: 10/16/20/ER FS Signed Date of Exam:10/16/20 CT ANGIO CHEST W PROCEDURE: CT angiography Chest TECHNIQUE: After intravenous administration of contrast, thin section axial CT angiography of the chest was performed. 3D MIP reconstructions were made. All CT scans use one or more of the following dose optimizing techniques: automated exposure control, MA and/or KvP adjustment based on a patient size and exam type, or iterative reconstruction. INDICATION: Chest pain, swelling in right leg. COMPARISON: None available. FINDINGS: Vasculature: No pulmonary emboli. No CT evidence of pulmonary hypertension or right ventricular strain. Thoracic aorta is normal in caliber. No aortic dissection or pseudoaneurysm. Heart and mediastinum: Visualized thyroid is normal. No supraclavicular, axillary, or intra-thoracic lymphadenopathy. The heart is normal in size without pericardial effusion. Pleura: No pleural effusion or pneumothorax. Lungs and airway: No endoluminal lesion in the trachea or central bronchi. No pulmonary mass, nodule or consolidation. Upper abdomen: Allowing for the phase of contrast, no acute abnormality in the upper abdomen is seen. Cholecystectomy. Musculoskeletal: No concerning osseous lesion. IMPRESSION: 1. No acute cardiopulmonary process. Specifically, no pulmonary emboli or acute aortic syndrome. Dictated by: Dictated on workstation # [id number] Dict: 10/16/20 1330 Trans: 10/16/20 1334 [facility] [id number] Interpreted by: ASHLEY GLEASON MD Electronically signed by: ASHLEY GLEASON MD 10/16/204 Reviewed: Reviewed by Me Departure Communication (Admissions) Time/Spoke to Admitting Phy: 14:05 Discussed the case with Dr. Hussein and he agreed to take the patient to the floor but he would like cefepime and vancomycin given his history and risk for MRSA. We discussed the chest pain costochondritis and his negative troponin in 3 weeks of pain and he agrees not to continue inpatient work-up of that beyond symptom management. Impression Primary Impression: Thrombophlebitis Additional Impressions: Cellulitis Qualified Codes: L03.115 - Cellulitis of right lower limb Sepsis Qualified Codes: A41.9 - Sepsis, unspecified organism Costochondritis, acute Disposition: ADMITTED INPATIENT Condition: Stable Admissions Decision to Admit Reason: Admit from ER (General) Decision to Admit/Date: Oct 16, 2020 Time/Decision to Admit Time: 14:00 Departure-Patient Inst. Referrals: [facility]/ (PCP) Primary Care Physician HYACINTH NUNEZ APRN (Family) Primary Care Physician RYAN LESLIE Oct 16, 2020 12:13
[2020-10-16] MEDS ORDERED: NITROGLYCERIN 0.4 MG SL TABS BTL 25'S SL PRN (12:15)
[2020-10-16] MEDS ORDERED: ASPIRIN 81 MG CHEW (CHILDREN'S ASA) PO ONE (12:15)
[2020-10-16 12:29] LABS: BASOPHILS # (AUTO) 0.1 10^3/uL (0.0-0.1); BASOPHILS % (AUTO) 0 % (0-10); EOSINOPHILS % (AUTO) 0 % (0-10); HEMATOCRIT 45 % (40-54); HEMOGLOBIN 15.5 G/DL (13.3-17.7); LYMPHOCYTES # (AUTO) 1.4 X 10^3 (1.0-4.0); LYMPHOCYTES % (AUTO) 4 % (12-44); MEAN CORPUSCULAR HEMOGLOBIN 32 PG (25-34); MEAN CORPUSCULAR HGB CONC 35 G/DL (32-36); MEAN CORPUSCULAR VOLUME 93 FL (80-99); MEAN PLATELET VOLUME 10.2 FL (7.4-10.4); MONOCYTES # (AUTO) 3.1 X 10^3 (0.0-1.0); MONOCYTES % (AUTO) 10 % (0-12); NEUTROPHILS # (AUTO) 27.8 X 10^3 (1.8-7.8); NEUTROPHILS % (AUTO) 85 % (42-75); PLATELET COUNT 349 10^3/uL (130-400); WHITE BLOOD COUNT 32.7 10^3/uL (4.3-11.0)
[2020-10-16 12:38] LABS: BAND NEUTROPHILS 20 %; BASOPHILS % (MANUAL) 0 %; EOSINOPHILS % (MANUAL) 0 %; INR 1.1 (0.8-1.4); LYMPHOCYTES % (MANUAL) 3 %; MONOCYTES % (MANUAL) 10 %; NEUTROPHILS % (MANUAL) 67 %; PROTHROMBIN TIME PATIENT 14.3 SEC (12.2-14.7); RBC MORPH NORMAL
[2020-10-16 12:42] LABS: ALANINE AMINOTRANSFERASE 20 U/L (0-55); ALKALINE PHOSPHATASE 123 U/L (40-136); BILIRUBIN,TOTAL 0.4 MG/DL (0.1-1.0); BUN/CREATININE RATIO 34; CALCIUM 9.5 MG/DL (8.5-10.1); CARBON DIOXIDE 22 MMOL/L (21-32); CHLORIDE 87 MMOL/L (98-107); CREATININE SERUM 0.87 MG/DL (0.60-1.30); GFR ESTIMATED > 60; GLUCOSE 350 MG/DL (70-105); POTASSIUM 4.4 MMOL/L (3.6-5.0); SODIUM 127 MMOL/L (135-145)
[2020-10-16 12:43] LABS: ALBUMIN 3.3 GM/DL (3.2-4.5); TOTAL PROTEIN 7.2 GM/DL (6.4-8.2)
--- NOTE | 2020-10-16 12:57 | Diagnostic Imaging Report ---
PATIENT HISTORY: cp. TECHNIQUE: Single frontal view of the chest. COMPARISON: 02/16/2020. FINDINGS: The lung volumes are normal. No focal consolidation is seen. No large pleural effusion or pneumothorax is seen. The cardiomediastinal silhouette is normal in size and contour. No acute osseous abnormality is seen. IMPRESSION: No acute pulmonary abnormality seen. Dictated by: Dictated on workstation # [id number]
[2020-10-16] MEDS ORDERED: NS 100 ML (IVPB) BAG IV ONE (13:00)
[2020-10-16] MEDS ORDERED: CATHETER FLUSH 10 ML SYR IV PRN (13:00)
[2020-10-16] MEDS ORDERED: HOLD METFORMIN - RECEIVED CONTRAST 20 ML VIAL IV SCH (13:00)
[2020-10-16] MEDS ORDERED: IOHEXOL 350 MG/ML 100 ML (OMNIPAQUE 350) VIAL IV ONE (13:00)
[2020-10-16 13:06] LABS: LIPASE 32 U/L (8-78)
[2020-10-16] MEDS ORDERED: cefTRIAXone FOR IV USE 1,000 MG in WATER (STERILE) FOR INJECTION 10 ML IV ONE (13:30)
[2020-10-16] MEDS ORDERED: LACTATED RINGERS 1,000 ML IV ONE (13:30)
[2020-10-16] MEDS ORDERED: HYDROcodone/APAP 5 MG/325 MG (LORTAB) TAB PO ONE (13:30)
--- NOTE | 2020-10-16 13:36 | Diagnostic Imaging Report ---
PROCEDURE: CT angiography Chest TECHNIQUE: After intravenous administration of contrast, thin section axial CT angiography of the chest was performed. 3D MIP reconstructions were made. All CT scans use one or more of the following dose optimizing techniques: automated exposure control, MA and/or KvP adjustment based on a patient size and exam type, or iterative reconstruction. INDICATION: Chest pain, swelling in right leg. COMPARISON: None available. FINDINGS: Vasculature: No pulmonary emboli. No CT evidence of pulmonary hypertension or right ventricular strain. Thoracic aorta is normal in caliber. No aortic dissection or pseudoaneurysm. Heart and mediastinum: Visualized thyroid is normal. No supraclavicular, axillary, or intra-thoracic lymphadenopathy. The heart is normal in size without pericardial effusion. Pleura: No pleural effusion or pneumothorax. Lungs and airway: No endoluminal lesion in the trachea or central bronchi. No pulmonary mass, nodule or consolidation. Upper abdomen: Allowing for the phase of contrast, no acute abnormality in the upper abdomen is seen. Cholecystectomy. Musculoskeletal: No concerning osseous lesion. IMPRESSION: 1. No acute cardiopulmonary process. Specifically, no pulmonary emboli or acute aortic syndrome. Dictated by: Dictated on workstation # [id number]
[2020-10-16] MEDS ORDERED: inSUlin (REGULAR) HUMAN 1 UNIT/0.01 ML (CHARGE PER UNIT) SC ONE (14:15)
[2020-10-16] MEDS ORDERED: NS IV 500 ML 500 ML ONE (14:24)
[2020-10-16] MEDS: VANCOMYCIN INJECTION 750 MG in NS (IVPB) 250 ML IV SCH (14:39)
[2020-10-16 16:38] VITALS: BP 128/81
--- NOTE | 2020-10-16 16:45 | NUR ---
LEONOR LAZARO admitted to room 410-1, with an admitting diagnosis of 1445, on 10/16/20 from [facility] , accompanied by STAFF.LEONOR LAZARO introduced to surroundings, call light, bed controls, phone, TV, temperature control, lights, meal times, smoking policy, visitor policy, side rail policy, bathrooms and showers. Patient Rights given to patient in the handbook. LEONOR LAZARO verbalizes understanding that [facility] is not responsible for the loss or damage to any personal effects or valuables that are kept in the patients posession during their hospitalization. LEONOR LAZARO verbalizes understanding of Interdisciplinary Patient Education. Patient and/or family were informed about the Rapid Response Team and its purpose.
[2020-10-16 16:59] VITALS: BP 128/81
[2020-10-16] MEDS ORDERED: VANCOMYCIN INJECTION 0.1 MG in NS (IVPB) 250 ML IV SCH (17:00)
[2020-10-16] MEDS: KETOROLAC 15 MG/ML VIAL IVP PRN (17:05)
[2020-10-16] MEDS: LACTATED RINGERS 1,000 ML IV SCH (17:06)
[2020-10-16] MEDS: metroNIDAZOLE 500MG/100ML IVPB 100 ML IV SCH (17:47)
[2020-10-16] MEDS ORDERED: FLU QUADRIvalent (3YOA+) 60 mcg/0.5 ml 2020-21 (AFLURIA) IM ONE (18:15)
[2020-10-16] MEDS: CEFEPIME INJECTION 1,000 MG in WATER (STERILE) FOR INJECTION 10 ML IV SCH (18:50)
[2020-10-16 19:48] VITALS: BP 131/78
[2020-10-16] MEDS: ENOXAPARIN 40 MG/0.4 ML (LOVENOX) SYR SC SCH (20:15)
[2020-10-16] MEDS: HYDROcodone/APAP 5 MG/325 MG (LORTAB) TAB PO PRN (20:16)
[2020-10-16] MEDS: inSUlin ASPART (NovoLOG) 1 UNIT/0.01 ML (CHARGE PER UNIT) SC SCH (20:16)
[2020-10-17] MEDS: LACTATED RINGERS 1,000 ML IV SCH ×3 (00:33→10:41)
[2020-10-17] MEDS: CEFEPIME INJECTION 1,000 MG in WATER (STERILE) FOR INJECTION 10 ML IV SCH ×5 (00:33→23:34)
[2020-10-17] MEDS: KETOROLAC 15 MG/ML VIAL IVP PRN ×2 (00:40→15:26)
[2020-10-17 00:44] VITALS: BP 155/86
[2020-10-17] MEDS: ONDANSETRON 4 MG/2 ML (SDV) Z0FRAN IVP PRN (01:10)
[2020-10-17] MEDS: VANCOMYCIN 1250 MG/NS 250 ML IVPB IV SCH ×4 (02:56→14:15)
[2020-10-17] MEDS: HYDROcodone/APAP 5 MG/325 MG (LORTAB) TAB PO PRN ×2 (03:02→11:51)
[2020-10-17 04:50] VITALS: BP 123/77
[2020-10-17] MEDS: metroNIDAZOLE 500MG/100ML IVPB 100 ML IV SCH ×2 (05:03→17:36)
[2020-10-17] MEDS: ACETAMINOPHEN 325 MG TABLET PO PRN (05:22)
[2020-10-17 05:36] LABS: BASOPHILS % (AUTO) 0 % (0-10); EOSINOPHILS % (AUTO) 0 % (0-10); HEMATOCRIT 40 % (40-54); HEMOGLOBIN 13.7 g/dL (13.3-17.7); LYMPHOCYTES # (AUTO) 1.4 10^3/uL (1.0-4.0); LYMPHOCYTES % (AUTO) 6 % (12-44); MEAN CORPUSCULAR HEMOGLOBIN 32 pg (25-34); MEAN CORPUSCULAR HGB CONC 34 g/dL (32-36); MEAN CORPUSCULAR VOLUME 95 fL (80-99); MEAN PLATELET VOLUME 10.5 fL (9.0-12.2); MONOCYTES # (AUTO) 2.5 10^3/uL (0.0-1.0); MONOCYTES % (AUTO) 11 % (0-12); NEUTROPHILS # (AUTO) 18.7 10^3/uL (1.8-7.8); NEUTROPHILS % (AUTO) 82 % (42-75); PLATELET COUNT 261 10^3/uL (130-400); WHITE BLOOD COUNT 22.8 10^3/uL (4.3-11.0)
[2020-10-17 05:53] LABS: ALBUMIN 2.8 GM/DL (3.2-4.5); CHLORIDE 92 MMOL/L (98-107); POTASSIUM 3.6 MMOL/L (3.6-5.0); SODIUM 127 MMOL/L (135-145)
[2020-10-17 05:54] LABS: CALCIUM 8.3 MG/DL (8.5-10.1)
[2020-10-17 05:55] LABS: GLUCOSE 261 MG/DL (70-105); TOTAL PROTEIN 5.9 GM/DL (6.4-8.2)
[2020-10-17 05:56] LABS: CARBON DIOXIDE 20 MMOL/L (21-32)
[2020-10-17 05:57] LABS: BILIRUBIN,TOTAL 0.5 MG/DL (0.1-1.0)
[2020-10-17 05:59] LABS: ALKALINE PHOSPHATASE 100 U/L (40-136); CREATININE SERUM 0.76 MG/DL (0.60-1.30); GFR ESTIMATED > 60
[2020-10-17 06:00] LABS: BUN/CREATININE RATIO 26
[2020-10-17 06:02] LABS: ALANINE AMINOTRANSFERASE 24 U/L (0-55)
[2020-10-17] MEDS: inSUlin ASPART (NovoLOG) 1 UNIT/0.01 ML (CHARGE PER UNIT) SC SCH ×6 (06:39→20:38)
[2020-10-17 08:00] VITALS: BP 120/76
--- NOTE | 2020-10-17 11:02 | History & Physical-Hospitalist ---
History of Present Illness HPI/Chief Complaint Patient reports right leg soreness behind the knee for several weeks. Got progressively worse and then he had noted redness swelling traveling up the leg. He denied anterior knee pain or swelling. He underwent venous Doppler evaluation that reportedly did not reveal any evidence for blood clot. He had been having some night sweats and because of this and weakness he presented to the emergency room where he had evidence for cellulitis with a sending lymphangitis his white count was 32,000 and he was admitted with SIRS secondary to his cellulitis. He has a history of type 2 diabetes for which he had taken insulin in the past. He reports he is not taking any therapy for diabetes with a history of recent incarceration. He has had no form of diabetic monitoring. He reports no previous history of skin infection or bone infection. He is not aware of any kidney problems vision is somewhat poor bilaterally and he reports numbness to the level of his ankles bilaterally. Date Seen 10/17/20 Time Seen by a Provider: 09:00 Attending Physician Jane Carvajal MD [facility]/On License Of [facility] Referring Physician Date of Admission Oct 16, 2020 at 16:15 Home Medications & Allergies Home Medications Reviewed patient Home Medication Reconciliation performed by pharmacy medication reconciliations watch technician and/or nursing. Patients Allergies have been reviewed. Allergies Allergies Coded Allergies Penicillins (Unverified Adverse Reaction, Unknown, 07/22/19) Past Ltdzlei-Kyqaeb-Lptkfj Hx Past Med/Social Hx: Reviewed and Corrections made Patient Social History Alcohol Use: Denies Use Recreational Drug Use: Yes Drug of Choice: "[place]", hx Meth on UDS Smoking Status: Current Everyday Smoker Type Used: Cigarettes (Pack per day) 2nd Hand Smoke Exposure: Yes Recent Foreign Travel: No Contact w/other who traveled: No Recent Hopitalizations: Yes Recent Infectious Disease Expo: No Seasonal Allergies Seasonal Allergies: No Past Medical History Surgeries: Cardiac Cardiac: Atrial Fibrillation, Cardiomyopathy, Heart Attack, Irregular Heartbeat Gastrointestinal: Hepatitis Endocrine: Diabetes, Insulin dep Psychosocial: Anxiety History of Blood Disorders: Yes (Hep C+) Family History Other Conditions/Hx Review of Systems Constitutional: see HPI Physical Exam Physical Exam Vital Signs Vital Signs - First Documented 10/16/20 11:54 Temp 36.4 Pulse 108 Resp 14 B/P (MAP) 115/84 (94) Pulse Ox 98 O2 Delivery Room Air Capillary Refill : Less Than 3 SecondsLess Than 3 Seconds Height, Weight, BMI Height: '" Weight: 192lbs. 4.0oz. 87.588915tv; 20.00 BMI Method: General Appearance: No Apparent Distress Respiratory: Chest Non Tender, Lungs Clear, Normal Breath Sounds, No Accessory Muscle Use, No Respiratory Distress Cardiovascular: Regular Rate, Rhythm, No Edema, No Gallop, No JVD, No Murmur, Normal Peripheral Pulses Gastrointestinal: Normal Bowel Sounds, No Organomegaly, No Pulsatile Mass, Non Tender, Soft Extremity: Swelling (Upper calf behind the right knee and redness with induration traveling up to the level of the upper thigh. Palpation no obvious evidence for abscess. Anterior knee is not warm and there is no evidence for effusion. There is severe atrophy of the interosseous muscles of both feet with secondary very high arch and hammertoe deformities involving all toes. Extremities are warm) Results Results/Procedures Labs Laboratory Tests 10/16/20 12:05 10/17/20 05:00 Patient resulted labs reviewed. Assessment/Plan Admission Diagnosis 1. Right lower extremity cellulitis with asending lymphangitis. Reported significant penicillin allergy continue vancomycin IV and Flagyl was initiated in the emergency room as well. 2. Insulin requiring type 2 diabetes mellitus uncontrolled likely cause of #1 we will initiate basal bolus therapy and continue to monitor. Patient cannot tell me even with prompting anything about past insulin therapy dosages forms etc. Admission Status: Inpatient Order (span 2 midnights) Reason for Inpatient Admission: See above Clinical Quality Measures AMI/AHF: ASA po Prior to arrival: No DVT/VTE Risk/Contraindication: Risk Factor Score Per Nursin RFS Level Per Nursing on Admit: 4+=Very High JANE CARVAJAL MD Oct 17, 2020 11:02
--- NOTE | 2020-10-17 11:45 | NUR ---
CALLED TO ROOM BY DENTAL HYGIENIST. PT YELLING "I HAVEN'T SEEN MY FUCKING NURSE ALL DAY". REQUESTING PAIN MEDS. GAVE AM MEDS AND DID ASSESSMENT, HUNG NEW IV, AND FIXED IV ALARM X 2 WHILE PT SLEPT THIS AM. PT STATES "I AM GOING TO SMOKE IN HERE". NURSING NUMERICAL CONTROL PROGRAMMER CYNTHIA CAME TO SPEAK WITH PT.
--- NOTE | 2020-10-17 11:50 | NUR ---
LORTAB 1 PO FOR PAIN. REFUSED TO RATE.
[2020-10-17 12:00] VITALS: BP 120/76
--- NOTE | 2020-10-17 12:21 | NUR ---
MEDS GIVEN. 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 NURSING PROFESSOR OF GENETICS CYNTHIA NOTIFIED AND CARE OF PT TO ALIE OLSEN. Addendum: 10/17/20 at 1244 by ELMER BERRY RN BERHANE
[2020-10-17] MEDS: NICOTINE 21 MG (NICODERM) PATCH TD SCH (14:15)
[2020-10-17 16:27] VITALS: BP 142/62
[2020-10-17] MEDS: ENOXAPARIN 40 MG/0.4 ML (LOVENOX) SYR SC SCH (18:48)
--- NOTE | 2020-10-17 19:25 | NUR ---
CONTACTED DR. CARVAJAL IN REGARDS TO PATIENT MAKING COMMENT ABOUT HAVING DIFFICULTIES TOLERATING HYDROCODONE. HE STATED THAT IT REALLY TORE UP HIS STOMACH. DISCONTINUED THE HYDROCODONE AND ORDERED 600MG IBUPTOFEN Q [address]'S PLACE. PATIENT WAS NOTIFIED.
[2020-10-17 19:45] VITALS: BP 130/69
[2020-10-17] MEDS: IBUPROFEN 600 MG (MOTRIN) TAB PO SCH (23:34)
[2020-10-18] VITALS (7 sets, daily range): BP systolic 106–138; BP diastolic 57–74
[2020-10-18] MEDS: VANCOMYCIN 1250 MG/NS 250 ML IVPB IV SCH ×4 (03:01→15:12)
[2020-10-18] MEDS: KETOROLAC 15 MG/ML VIAL IVP PRN ×2 (04:09→20:24)
[2020-10-18] MEDS: metroNIDAZOLE 500MG/100ML IVPB 100 ML IV SCH (04:23)
[2020-10-18] MEDS: CEFEPIME INJECTION 1,000 MG in WATER (STERILE) FOR INJECTION 10 ML IV SCH ×4 (05:37→23:59)
[2020-10-18] MEDS: IBUPROFEN 600 MG (MOTRIN) TAB PO SCH ×4 (05:38→23:59)
[2020-10-18] MEDS: inSUlin ASPART (NovoLOG) 1 UNIT/0.01 ML (CHARGE PER UNIT) SC SCH ×7 (06:12→20:18)
[2020-10-18] MEDS: NICOTINE 21 MG (NICODERM) PATCH TD SCH (08:03)
[2020-10-18] MEDS: NICOTINE PATCH REMOVAL TP SCH (08:03)
[2020-10-18 08:37] LABS: BASOPHILS # (AUTO) 0.1 10^3/uL (0.0-0.1); BASOPHILS % (AUTO) 0 % (0-10); EOSINOPHILS # (AUTO) 0.1 10^3/uL (0.0-0.3); EOSINOPHILS % (AUTO) 0 % (0-10); HEMATOCRIT 40 % (40-54); HEMOGLOBIN 13.9 g/dL (13.3-17.7); LYMPHOCYTES # (AUTO) 1.5 10^3/uL (1.0-4.0); LYMPHOCYTES % (AUTO) 7 % (12-44); MEAN CORPUSCULAR HEMOGLOBIN 32 pg (25-34); MEAN CORPUSCULAR HGB CONC 35 g/dL (32-36); MEAN CORPUSCULAR VOLUME 92 fL (80-99); MEAN PLATELET VOLUME 9.7 fL (9.0-12.2); MONOCYTES # (AUTO) 2.1 10^3/uL (0.0-1.0); MONOCYTES % (AUTO) 10 % (0-12); NEUTROPHILS # (AUTO) 17.2 10^3/uL (1.8-7.8); NEUTROPHILS % (AUTO) 82 % (42-75); PLATELET COUNT 279 10^3/uL (130-400)
[2020-10-18 08:44] LABS: CHLORIDE 97 MMOL/L (98-107); POTASSIUM 3.3 MMOL/L (3.6-5.0); SODIUM 135 MMOL/L (135-145)
[2020-10-18 08:45] LABS: CALCIUM 8.3 MG/DL (8.5-10.1); GLUCOSE 200 MG/DL (70-105)
[2020-10-18 08:47] LABS: CARBON DIOXIDE 25 MMOL/L (21-32)
[2020-10-18 08:49] LABS: CREATININE SERUM 0.64 MG/DL (0.60-1.30); GFR ESTIMATED > 60
[2020-10-18 08:50] LABS: BUN/CREATININE RATIO 19
[2020-10-18] MEDS ORDERED: KCL 8 MEQ (MICRO K) TABLET PO ONE (10:45)
--- NOTE | 2020-10-18 10:48 | Progress Note - Hospitalist ---
Subjective HPI/CC On Admission Date Seen by Provider: Oct 18, 2020 Time Seen by Provider: 08:00 Patient reports right leg soreness behind the knee for several weeks. Got progressively worse and then he had noted redness swelling traveling up the leg. He denied anterior knee pain or swelling. He underwent venous Doppler evaluati on that reportedly did not reveal any evidence for blood clot. He had been having some night sweats and because of this and weakness he presented to the emergency room where he had evidence for cellulitis with a sending lymphangitis his white count was 32,000 and he was admitted with SIRS secondary to his cellulitis. He has a history of type 2 diabetes for which he had taken insulin in the past. He reports he is not taking any therapy for diabetes with a history of recent incarceration. He has had no form of diabetic monitoring. He reports no previous history of skin infection or bone infection. He is not aware of any kidney problems vision is somewhat poor bilaterally and he reports numbness to the level of his ankles bilaterally. Subjective/Events-last exam Patient feels his leg pain is about the same he has had no chills or fever appetite good with decreasing thigh swelling and erythema on physical examination. Patient has been disagreeable with staff and caught smoking in his room despite being told by staff that he could not smoke because of Covid issues he is unable to go outside. Focused Exam Lactate Level 10/16/20 13:43: Lactic Acid Level 1.49 Time of Focused Exam: 14:11 Objective Exam Vital Signs Vital Signs Date Time Temp Pulse Resp B/P (MAP) Pulse Ox O2 Delivery O2 Flow Rate FiO2 10/18/20 08:00 36.1 87 18 114/71 (85) 96 Room Air Capillary Refill : Less Than 3 SecondsLess Than 3 Seconds General Appearance: No Apparent Distress (Patient was sleeping peacefully upon my arrival) Respiratory: Chest Non Tender, Lungs Clear, Normal Breath Sounds, No Accessory Muscle Use, No Respiratory Distress Cardiovascular: Regular Rate, Rhythm, No Edema, No Gallop, No JVD, No Murmur, Normal Peripheral Pulses Extremity: Swelling (Decreasing in the thigh stable behind the knee with decreasing induration and erythema especially involving the thigh. No palpable evidence to suggest abscess.) Results/Procedures Lab Laboratory Tests 10/18/20 08:30 Patient resulted labs reviewed. Assessment/Plan Assessment and Plan Assess & Plan/Chief Complaint 1. Right lower extremity cellulitis secondary to uncontrolled type 2 diabetes clinically improving with improvement in physical examination as noted above and decreasing white count continue vancomycin repeat CBC and BMP in the morning. 2. Mild hypokalemia replace orally. 3. Longstanding untreated poorly controlled type 2 diabetes mellitus is improving on basal bolus therapy continue. Clinical Quality Measures AMI/AHF: ASA po Prior to arrival: No DVT/VTE Risk/Contraindication: Risk Factor Score Per Nursin RFS Level Per Nursing on Admit: 4+=Very High JANE CARVAJAL MD Oct 18, 2020 10:47
[2020-10-18] MEDS: ENOXAPARIN 40 MG/0.4 ML (LOVENOX) SYR SC SCH (17:18)
[2020-10-19] MEDS: ZOLPIDEM 5 MG (AMBIEN) TAB PO PRN (00:33)
[2020-10-19] MEDS: VANCOMYCIN 1250 MG/NS 250 ML IVPB IV SCH ×2 (03:14)
[2020-10-19 03:51] VITALS: BP 116/62
[2020-10-19 05:21] LABS: BASOPHILS % (AUTO) 0 % (0-10); EOSINOPHILS # (AUTO) 0.1 10^3/uL (0.0-0.3); EOSINOPHILS % (AUTO) 0 % (0-10); HEMATOCRIT 37 % (40-54); HEMOGLOBIN 12.7 g/dL (13.3-17.7); LYMPHOCYTES # (AUTO) 1.8 10^3/uL (1.0-4.0); LYMPHOCYTES % (AUTO) 11 % (12-44); MEAN CORPUSCULAR HEMOGLOBIN 32 pg (25-34); MEAN CORPUSCULAR HGB CONC 34 g/dL (32-36); MEAN CORPUSCULAR VOLUME 94 fL (80-99); MEAN PLATELET VOLUME 9.6 fL (9.0-12.2); MONOCYTES # (AUTO) 2.1 10^3/uL (0.0-1.0); MONOCYTES % (AUTO) 13 % (0-12); NEUTROPHILS # (AUTO) 12.8 10^3/uL (1.8-7.8); NEUTROPHILS % (AUTO) 75 % (42-75); PLATELET COUNT 284 10^3/uL (130-400)
[2020-10-19] MEDS: CEFEPIME INJECTION 1,000 MG in WATER (STERILE) FOR INJECTION 10 ML IV SCH ×4 (05:35→22:57)
[2020-10-19] MEDS: IBUPROFEN 600 MG (MOTRIN) TAB PO SCH (05:35)
[2020-10-19] MEDS: KCL 8 MEQ (MICRO K) TABLET PO SCH (05:35)
[2020-10-19 05:39] LABS: CHLORIDE 101 MMOL/L (98-107); POTASSIUM 3.3 MMOL/L (3.6-5.0); SODIUM 137 MMOL/L (135-145)
[2020-10-19 05:40] LABS: CALCIUM 7.9 MG/DL (8.5-10.1); GLUCOSE 141 MG/DL (70-105)
[2020-10-19 05:42] LABS: CARBON DIOXIDE 26 MMOL/L (21-32)
[2020-10-19 05:44] LABS: CREATININE SERUM 0.61 MG/DL (0.60-1.30); GFR ESTIMATED > 60
[2020-10-19 05:45] LABS: BUN/CREATININE RATIO 15
[2020-10-19] MEDS: inSUlin ASPART (NovoLOG) 1 UNIT/0.01 ML (CHARGE PER UNIT) SC SCH ×8 (05:47→20:32)
[2020-10-19] MEDS: KETOROLAC 15 MG/ML VIAL IVP PRN ×3 (06:39→22:57)
--- NOTE | 2020-10-19 06:43 | NUR ---
Patient was cursing and yelling at staff this morning, stating that if he does not "get a fucking narcotic then they better give me a fucking cigarette". Patient told this nurse that he wants to be transferred to as "this hospital isn't doing any fucking thing for me". This nurse explained to patient that the IV antibiotics he is receiving are working, as his WBC levels have come down. Patient stated "I don't give a fuck, I want to be able to walk". APPLE PICKING SUPERVISOR went to patient room to answer his call light. Patient was sitting on the footboard of the bed. Patient was walking in his room yesterday unassisted but stated this morning that he needs a walker. APPLE PICKING SUPERVISOR took a walker to his room and patient hopped on one foot to the restroom using the walker. APPLE PICKING SUPERVISOR attempted to educate patient on the correct way to use the walker but patient ignored her. Patient had a bm and then told the APPLE PICKING SUPERVISOR "It hurt my leg to shit so I guess I won't be doing that anymore". Patient told this nurse "I'm going to call my Mom and tell her to get me transferred to [facility]". This nurse again explained to patient that the treatment he is receiving is working for his infection. Patient said "I don't give a fuck, I know there is something you can give me to numb my fucking leg". Patient did tell this nurse last night that both of his feet are numb. This nurse asked patient if he has diabetic neuropathy and he said he did not know what that was. Patient requested Ambien for sleep last night, saying that he takes it at home (doesn't know dosage though). This nurse called Dr Hussein and received an order for Ambien 5mg qHS PRN. Ambien was administered and patient stated this morning that it "didn't do shit". This nurse noted that patient was sleeping at 0100, 0300 and 0500 when this nurse went to patient room on rounds.
[2020-10-19 08:07] VITALS: BP 147/83
[2020-10-19] MEDS: NICOTINE 21 MG (NICODERM) PATCH TD SCH ×2 (08:27→19:16)
[2020-10-19] MEDS: NICOTINE PATCH REMOVAL TP SCH (08:27)
[2020-10-19] MEDS: oxyCODONE/APAP 5/325MG (PERCOCET 5) TABLET PO PRN ×3 (10:23→20:37)
--- NOTE | 2020-10-19 10:31 | Progress Note - Hospitalist ---
Subjective HPI/CC On Admission Date Seen by Provider: Oct 19, 2020 Time Seen by Provider: 10:00 Patient reports right leg soreness behind the knee for several weeks. Got progressively worse and then he had noted redness swelling traveling up the leg. He denied anterior knee pain or swelling. He underwent venous Doppler evaluation that reportedly did not reveal any evidence for blood clot. He had been having some night sweats and because of this and weakness he presented to the emergency room where he had evidence for cellulitis with a sending lymphangitis his white count was 32,000 and he was admitted with SIRS secondary to his cellulitis. He has a history of type 2 diabetes for which he had taken insulin in the past. He reports he is not taking any therapy for diabetes with a history of recent incarceration. He has had no form of diabetic monitoring. He reports no previous history of skin infection or bone infection. He is not aware of any kidney problems vision is somewhat poor bilaterally and he reports numbness to the level of his ankles bilaterally. Subjective/Events-last exam Pt sleeping since he didnt sleep at all last night Oxycodone will be started of 5 Mg Q4hrs Cellulitis seems to be improved Noncompliant with DM precludes anything but a poor prognosis long-term Review of Systems Musculoskeletal: leg pain Focused Exam Lactate Level Time of Focused Exam: 14:11 Objective Exam Vital Signs Vital Signs Date Time Temp Pulse Resp B/P (MAP) Pulse Ox O2 Delivery O2 Flow Rate FiO2 10/20/20 04:42 36.8 87 20 134/62 (86) 96 Room Air Capillary Refill : Less Than 3 SecondsLess Than 3 Seconds General Appearance: No Apparent Distress, WD/WN, Chronically ill Respiratory: Chest Non Tender, Lungs Clear, Normal Breath Sounds, No Accessory Muscle Use, No Respiratory Distress Cardiovascular: Regular Rate, Rhythm, No Edema, No Gallop, No JVD, No Murmur, Normal Peripheral Pulses Extremity: Swelling, Other (erythema right posterior thoigh) Neurologic/Psychiatric: Alert, Oriented x3 Results/Procedures Lab Patient resulted labs reviewed. Assessment/Plan Assessment and Plan Assess & Plan/Chief Complaint Assessment: Right lower extremity cellulitis DM OOC Plan: IV abx Pain meds Clinical Quality Measures AMI/AHF: ASA po Prior to arrival: No DVT/VTE Risk/Contraindication: Risk Factor Score Per Nursin RFS Level Per Nursing on Admit: 4+=Very High LORNA FARMER DO Oct 19, 2020 10:31
[2020-10-19 11:31] VITALS: BP 129/76
--- NOTE | 2020-10-19 14:31 | Physician Query Clarification ---
PQ-Uncertain Diagnosis Admission/Discharge Admission Date: Oct 16, 2020 at 16:15 Discharge Date: Dr. Poe, The medical record reflects the following clinical scenario: History/Risk Factors: rt leg cellulitis, chest pain, cardiomyopathy, systolic CHF, COPD Clinical Findings: T 37/6, P 108, R 20, WBC 32.7, Lactc acid 1.49 Treatment: IV Ceftriaxone, Vancomycin Question: Is Sepsis a clinically valid diagnosis? Sepsis was documented in the ER record with no further documentation in the medical record. Please document a response in Progress Note or Discharge Summary. 1. Yes, clinically valid, condition resolved. 2. No, condition ruled out. 3. Other, with explanation of clinical findings. 4. Undetermined, no explanation for clinical findings. PHYSICIAN RESPONSE Diagnosis clinically valid: No, conditon ruled out Please remember a lack of response to the above will prompt a phone page by CDI/Coding staff. In responding to this query, please exercise your independent professional judgment. The purpose of this communication is to more accurately reflect the complexity of your patients condition. The fact that a question is asked does not imply that any particular answer is desired or expected. Thank you for your timely response to this clarification. Requestors name: Elise THIS PHYSICIAN QUERY FORM IS A PERMANENT PART OF THE MEDICAL RECORD ELISE BUTLER Oct 19, 2020 14:31 LORNA POE DO Oct 19, 2020 18:16
--- NOTE | 2020-10-19 15:06 | NUR ---
"RD ASSESSMENT PMHx: DM; afib; hepatitis; PT INTERACTION: Note pt has hx of being easily aggravated and confrontational with nursing staff, per chart review. Note all diet information for consult for MST score is per Camille OLSEN or per chart review. Camille states current appetite appears good. Note avg PO intake 88% x3d, per chart review. Camille states no issues with nausea, vomiting, constipation, or diarrhea that she is aware of. Note last BM was 10/19, and pt not currently on bowel regimen per chart review. Note unable to determine current level of DM management, and not unable to determine recent HbA1c, per chart review. Note recent 16# wt loss x8mon. Note this is not significant wt loss at 9% (12% wt loss is considered significant at 8mon). Given PO intake and wt hx, pt does not meet criteria for malnutrition per ASPEN guidelines. ABNORMAL NUTRITION-RELATED LAB VALUES LOW: K 3.3; Ca 7.9; HIGH: glu 141; Est. kcal needs: 3998-7512 kcal | 35-30 kcal/kg Est. Pro needs: 60-75 g Pro | 0.8-1.0 g Pro/kg PES STATEMENT: Given current appetite and PO intake, no nutrition diagnosis at this time (NO-1.1). INTERVENTION: Continue with current diet order of CHO 60g/m 3snack diet, with modifier of DYS3 Advanced/Ground Meat. Did not offer diet education on DM management at this time, d/t pt's confrontational nature. May attempt to offer when pt is in less agitated state of mind. Will continue to follow and reassess as pt needs, intake, and status change. Anastasiia WHITT, MS RD LD [phone] cell"
[2020-10-19 15:30] VITALS: BP 123/62
[2020-10-19] MEDS: ENOXAPARIN 40 MG/0.4 ML (LOVENOX) SYR SC SCH ×2 (17:43→17:59)
--- NOTE | 2020-10-19 17:58 | NUR ---
PT. REFUSED LOVENOX. PT. STATES "I WILL NOT TAKE THAT SHOT UNTIL YOU TAKE ME OUT TO SMOKE." ATTEMPTED TO INSTRUCT PT. ON IMPORTANCE OF BLOOD THINNERS AND HIS DX. BUT PT. CONT. TO REFUSE.
[2020-10-19 19:44] VITALS: BP 137/64
--- NOTE | 2020-10-19 20:37 | NUR ---
2036 pt bs 137, pt requesting pain medication As this rn entered the room pt began to moan out loud "oh lord..Ouch..ohhh" repeatedly. This rn informed pt of the purpose of being in the room. This RN asked this pt what his pain rating was on a scale of 1 to 10; pt responded with, "10. what the fuck do you think it is. Just so you know I'm leaving here in the morning my gopi is coming to get me, I'm tired of laying here. This fucking hurts." This rn asked pt for permission to administer the scheduled levemir. this pt responded with, "You guys are all worried about that fucking diabetes, no." This rn attempted to do exam on pt, pt was not compliant with this process either.
--- NOTE | 2020-10-19 23:45 | NUR ---
pt reports pain is 10/10. this rn contacted dr. nielson about pt pain not being controlled & that this pt refused levemir new order received
[2020-10-20 00:03] VITALS: BP 133/87
[2020-10-20] MEDS: HYDROmorphone 2 MG/ML VIAL (DILAUDID) IV PRN ×5 (00:11→20:07)
[2020-10-20 04:42] VITALS: BP 134/62
--- NOTE | 2020-10-20 05:23 | NUR ---
pt refusing to allow dental laboratory assistant to draw am labs
--- NOTE | 2020-10-20 05:54 | Progress Note - Hospitalist ---
Subjective HPI/CC On Admission Date Seen by Provider: Oct 20, 2020 Time Seen by Provider: 10:00 Patient reports right leg soreness behind the knee for several weeks. Got progressively worse and then he had noted redness swelling traveling up the leg. He denied anterior knee pain or swelling. He underwent venous Doppler evaluati on that reportedly did not reveal any evidence for blood clot. He had been having some night sweats and because of this and weakness he presented to the emergency room where he had evidence for cellulitis with a sending lymphangitis his white count was 32,000 and he was admitted with SIRS secondary to his cellulitis. He has a history of type 2 diabetes for which he had taken insulin in the past. He reports he is not taking any therapy for diabetes with a history of recent incarceration. He has had no form of diabetic monitoring. He reports no previous history of skin infection or bone infection. He is not aware of any kidney problems vision is somewhat poor bilaterally and he reports numbness to the level of his ankles bilaterally. Subjective/Events-last exam Pt originally declined to have another IV started Pt was very angry and cursing at the nurse I arrived and Pt appeared to be in a better mood He agreed for a midline placement with ultrasound-guided IV and to restart antibiotics Leg is still very erythematous and definitely needs to stay in the hospital WBC remains elevated Review of Systems General: Fatigue, Malaise Musculoskeletal: leg pain Focused Exam Time of Focused Exam: 14:11 Objective Exam Vital Signs Vital Signs Date Time Temp Pulse Resp B/P (MAP) Pulse Ox O2 Delivery O2 Flow Rate FiO2 10/21/20 00:44 37.0 89 20 132/61 (84) 95 Room Air Capillary Refill : Less Than 3 SecondsLess Than 3 Seconds General Appearance: No Apparent Distress, WD/WN, Chronically ill Respiratory: Chest Non Tender, Lungs Clear, Normal Breath Sounds, No Accessory Muscle Use, No Respiratory Distress Cardiovascular: Regular Rate, Rhythm, No Edema, No Gallop, No JVD, No Murmur, Normal Peripheral Pulses Neurologic/Psychiatric: Alert, Oriented x3, No Motor/Sensory Deficits, Normal Mood/Affect Results/Procedures Lab Laboratory Tests 10/20/20 11:50 Patient resulted labs reviewed. Assessment/Plan Assessment and Plan Assess & Plan/Chief Complaint Assessment: Right lower extremity cellulitis DM OOC Plan: IV abx Pain meds 10/20/20: Dr Bonilla consultation appreciated Lovenox maintained Vanc and Cefepime Clinical Quality Measures AMI/AHF: ASA po Prior to arrival: No DVT/VTE Risk/Contraindication: Risk Factor Score Per Nursin RFS Level Per Nursing on Admit: 4+=Very High LORNA FARMER DO Oct 20, 2020 05:54
[2020-10-20] MEDS: KCL 8 MEQ (MICRO K) TABLET PO SCH (06:55)
[2020-10-20] MEDS: CEFEPIME INJECTION 1,000 MG in WATER (STERILE) FOR INJECTION 10 ML IV SCH ×4 (06:55→23:23)
--- NOTE | 2020-10-20 07:13 | NUR ---
0655-pt iv leaking-pt refusing to allow this rn to restart iv. this rn discussed with pt the importance of having the iv. pt stated to this rn that "They can give me antibiotic by mouth. I'm getting the fuck out of here. You guys have not done anything for this infection in my leg. I better see the doctor in a little bit." 0704-this rn notified dr. nielson of pt not allowing iv restart and not allowing labs to drawn.
[2020-10-20] MEDS: inSUlin ASPART (NovoLOG) 1 UNIT/0.01 ML (CHARGE PER UNIT) SC SCH ×7 (07:29→22:24)
[2020-10-20 08:00] VITALS: BP 125/60
--- NOTE | 2020-10-20 08:00 | NUR ---
PT REPORTS IMMOBILITY OF THE RIGHT LOWER LEG DUE TO PAIN. THIS RN EXPRESSES HER CONCERN AND THE IMPORTANCE OF STARTING A NEW IV SO THAT PT CAN GET THE ANTIBIOTICS HE NEEDS TO TREAT HIS INFECTION. PT STATES, "GET THE FUCK OUT OF HERE. I AM SO GODDAMNED TIRED OF HAVING TO DEAL WITH YOU FAT, LAZY, FUCKING RETARDED NURSES. ALL OF YOU ARE WORTHLESS! SHIT EVEN THE FUCKING DOCTOR'S HELPERS ARE RETARDED. I WANT TO TALK TO MY D-O-C-T-O-R. DO YOU UNDESTAND WHAT I SPELLED OR ARE YOU TOO FUCKING STUPID TO DO THAT EITHER?" THIS RN STATES, "I WILL GLADLY GET YOUR DOCTOR SOON SHE GETS HERE TO MAKE ROUNDS. ALTHOUGH, YOU MAY WANT TO TONE DOWN YOUR FOUL LANGUAGE AND DO SOME DEEP BREATHING, TO TRY AND CALM DOWN BEFORE SHE COMES INTO THE ROOM. THE CONVERSATION ABOUT YOUR PLAN OF CARE WILL BE MORE SUCCESSFUL IF YOU CAN CALMLY TELL US HOW WE CAN BEST SERVE YOU." PT STATES, "JUST GET THE FUCK OUT OF MY ROOM. I WILL CALM DOWN WHEN YOU MOTHER FUCKERS FIX MY LEG." THIS RN THEN LEAVES THE ROOM.
[2020-10-20] MEDS: NICOTINE PATCH REMOVAL TP SCH (08:55)
[2020-10-20] MEDS: NICOTINE 21 MG (NICODERM) PATCH TD SCH (08:56)
--- NOTE | 2020-10-20 10:00 | NUR ---
RAÚL MALHOTRA AT BEDSIDE TO PLACE MIDLINE AT THIS TIME. THIS RN IS ALSO AT BEDSIDE DUE TO PT'S AGGRESSIVE LANGUAGE. THROUGHOUT MIDLINE PLACEMENT PT SPEAKS TO RAÚL MALHOTRA IN AGGRESSIVE TONES STATING, "YOURE NOT FUCKING STICKING ME IN MY UPPER ARM." ROSCOE THEN EXPLAINS THAT THERE ARE ACTUALLY LESS NERVE ENDINGS IN THE UPPER ARM AND THAT MIDLINES DO NOT TYPICALLY HURT ANY MORE THAN A REGULAR IV. PT THEN STATES, "YOU KNOW I AM FUCKING RIGHT HANDED DONT YOU." ROSCOE EXPLAINS THAT THE RIGHT ARM IS THE BEST SITE FOR HER TO PLACE THE MIDLINE. PT THEN STATES CAN I HAVE SOME PAIN MEDICATION FIRST? THIS RN STATES, "I CAN GET YOU PAIN MEDICATION, BUT ALL I HAVE TO GIVE YOU IS BY MOUTH. MEDICATION TAKEN BY MOUTH TYPICALLY TAKES A GOOD THIRTY MINUTES TO BEGIN WORKING." ROSCOE THEN REASSURES PT THAT THE HE ONLY NEEDS TO BE STILL FOR A FEW MINUTES AND IT WILL BE OVER. PT FINALLY AGREES TO MIDLINE. NOTE: PT CONTINUES TO SAY THINGS LIKE, "THIS HOSPITAL FUCKING SUCKS" AND "YOU THINK YOU FUCKING KNOW EVERYTHING BUT YOU DONT"
[2020-10-20] MEDS: oxyCODONE/APAP 5/325MG (PERCOCET 5) TABLET PO PRN ×2 (11:30→22:23)
[2020-10-20] MEDS: KETOROLAC 15 MG/ML VIAL IVP PRN ×2 (11:30→22:23)
[2020-10-20] MEDS: ONDANSETRON 4 MG/2 ML (SDV) Z0FRAN IVP PRN ×2 (11:30→22:29)
[2020-10-20 11:57] LABS: BASOPHILS % (AUTO) 0 % (0-10); EOSINOPHILS # (AUTO) 0.1 10^3/uL (0.0-0.3); EOSINOPHILS % (AUTO) 0 % (0-10); HEMATOCRIT 36 % (40-54); LYMPHOCYTES # (AUTO) 1.8 X 10^3 (1.0-4.0); LYMPHOCYTES % (AUTO) 12 % (12-44); MEAN CORPUSCULAR HEMOGLOBIN 32 pg (25-34); MEAN CORPUSCULAR HGB CONC 34 g/dL (32-36); MEAN CORPUSCULAR VOLUME 95 fL (80-99); MEAN PLATELET VOLUME 9.3 fL (9.0-12.2); MONOCYTES % (AUTO) 14 % (0-12); NEUTROPHILS # (AUTO) 10.2 X 10^3 (1.8-7.8); NEUTROPHILS % (AUTO) 72 % (42-75); PLATELET COUNT 328 10^3/uL (130-400); WHITE BLOOD COUNT 14.2 10^3/uL (4.3-11.0)
[2020-10-20 12:00] VITALS: BP 130/76
[2020-10-20 12:09] LABS: ALBUMIN 2.4 GM/DL (3.2-4.5); CHLORIDE 92 MMOL/L (98-107); POTASSIUM 3.8 MMOL/L (3.6-5.0); SODIUM 128 MMOL/L (135-145)
[2020-10-20 12:11] LABS: CALCIUM 7.7 MG/DL (8.5-10.1)
[2020-10-20 12:12] LABS: GLUCOSE 238 MG/DL (70-105); TOTAL PROTEIN 5.3 GM/DL (6.4-8.2)
[2020-10-20 12:13] LABS: CARBON DIOXIDE 29 MMOL/L (21-32)
[2020-10-20 12:14] LABS: BILIRUBIN,TOTAL 0.4 MG/DL (0.1-1.0)
[2020-10-20 12:15] LABS: ALKALINE PHOSPHATASE 84 U/L (40-136); GFR ESTIMATED > 60
[2020-10-20 12:16] LABS: BUN/CREATININE RATIO 11
[2020-10-20 12:18] LABS: ALANINE AMINOTRANSFERASE 24 U/L (0-55)
[2020-10-20] MEDS ORDERED: HYDROmorphone 2 MG/ML VIAL (DILAUDID) IV PRN (16:30)
[2020-10-20] MEDS ORDERED: VANCOMYCIN INJECTION 1,000 MG in NS (IVPB) 250 ML IV SCH (16:30)
[2020-10-20] MEDS ORDERED: VANCOMYCIN 1500 MG/NS 500 ML IVPB IV NR ×2 (16:45)
--- NOTE | 2020-10-20 17:57 | Diagnostic Imaging Report ---
INDICATION: Cellulitis. Knee pain. COMPARISON: None. FINDINGS: Two views of the right knee joint demonstrate no acute fracture or dislocation. No focal osseous lesions are seen. No significant joint effusion is seen. Note is made of anterior skin thickening and edema. There are no radiopaque foreign bodies. IMPRESSION: 1. Skin thickening and edema of the anterior right knee, but no evidence of underlying acute osseous abnormality. Dictated by: Dictated on workstation # [id number]
--- NOTE | 2020-10-20 18:13 | Consultation - Surgery ---
MARIPOSA MEEHAN MED STUDENT 10/20/20 1813: History of Present Illness History of Present Illness Patient Consulted On(rae/time) 10/20/20 18:02 Date Seen by Provider: Oct 20, 2020 Time Seen by Provider: 17:00 Reason for Visit: Chest pain History of Present Illness Pt is a 50yo male consulted for cellulitis of his RLE. He was seen and examined. He was confrontational during the interview, going as far as to say the nurses at the hospital are worthless and that he needs to stop being "treated like I'm a dunce." He states that the cellulitis began 5 weeks ago and cannot remember an inciting incident. He states that he is experiencing chest pain, N/V, and SOB. The pain in his leg is "there all the time from my foot all the way to my back." He says he wants a cigarette, but was informed that he couldn't in the hospital and refused the patch, gum, and lozenge saying that they didn't work for him. Allergies and Home Medications Allergies Coded Allergies: Penicillins (Unverified Adverse Reaction, Unknown, 07/22/19) Home Medications Cyclobenzaprine HCl 10 Mg Tablet, 10 MG PO Q8H PRN for SPASMS Prescribed by: JAH PALACIOS on 10/13/201730 Ibuprofen 800 Mg Tablet, 800 MG PO Q8H PRN for PAIN Prescribed by: JAH PALACIOS on 10/13/201730 Patient Home Medication List Home Medication List Reviewed: Yes Past Iejddbr-Ustylz-Mcidie Hx Patient Social History Alcohol Use: Denies Use Recreational Drug Use: Yes Drug of Choice: "[place]", hx Meth on UDS Smoking Status: Current Everyday Smoker (2ppd) Cigarettes Per Day: 40 Type Used: Cigarettes 2nd Hand Smoke Exposure: Yes Recent Foreign Travel: No Contact w/Someone Who Travel: No Recent Infectious Disease Expo: No Recent Hopitalizations: Yes Seasonal Allergies Seasonal Allergies: No Surgeries History of Surgeries: Yes (UGI, ? Heart Surgery per prior hx family) Surgeries: Cardiac Respiratory History of Respiratory Disorde: Yes (Tobaccoism 2ppd) Respiratory Disorders: COPD Cardiovascular History of Cardiac Disorders: Yes (heart surgery at 16mo for hole in heart; [place] 4 months ago, Systolic CHF) Cardiac Disorders: Atrial Fibrillation, Cardiomyopathy, Heart Attack, Irregular Heartbeat Neurological History of Neurological Disord: No Genitourinary History of Genitourinary Disor: No Gastrointestinal History of Gastrointestinal Di: Yes (Gastritis, Duodenitis, frequent alcohol intake, Hep C) Gastrointestinal Disorders: Hepatitis Musculoskeletal History of Musculoskeletal Dis: No Endocrine History of Endocrine Disorders: Yes (Refuses to monitor blood sugar and to use insulin) Endocrine Disorders: Diabetes, Insulin dep HEENT History of HEENT Disorders: No Cancer History of Cancer: No Psychosocial History of Psychiatric Problem: Yes (polysubstance abuse ) Behavioral Health Disorders: Anxiety Integumentary History of Skin or Integumenta: Yes (Hidradenitis Suppurative, frequent abscesses) Blood Transfusions History of Blood Disorders: Yes (Hep C+) Family Medical History Significant Family History: Other Conditions/Hx Review of Systems-General Constitutional: No chills, No diaphoresis EENTM: dental problems Respiratory: short of breath Cardiovascular: chest pain, Hx of Intervention Gastrointestinal: No abdominal pain; nausea Genitourinary: No decreased output, No dysuria Musculoskeletal: No muscle pain; muscle stiffness (RLE) Skin: change in color (cellulitis/erythema to RLE; distal thigh extending to proximal leg), other (pain/tenderness to R distal postero-lateral thigh exten ding to proximal postero-lateral leg) Psychiatric/Neurological: Anxiety Physical Exam-General Problems Physical Exam Vital Signs Vital Signs - First Documented 10/16/20 11:54 Temp 36.4 Pulse 108 Resp 14 B/P (MAP) 115/84 (94) Pulse Ox 98 O2 Delivery Room Air Capillary Refill : Less Than 3 SecondsLess Than 3 Seconds General Appearance: no apparent distress, thin HEENT: PERRL/EOMI, normal ENT inspection Neck: full range of motion, normal inspection Respiratory: no respiratory distress, no accessory muscle use Cardiovascular: normal peripheral pulses, no JVD, other Gastrointestinal: non tender, soft Rectal: deferred Back: normal inspection, no CVA tenderness, no vertebral tenderness Extremities: No normal range of motion (limited ROM R knee due to pain); inflammation (RLE with a large area of erythema, induration, and swelling behind knee extending from distal thigh to proximal leg), swelling Neurologic/Psychiatric: alert, oriented x 3, abnormal gait (unable to weightbear RLE), other (agitated) Skin: normal color (area of erythema to RLE, otherwise normal color), warm/dry Lymphatic: no adenopathy Data Review Labs Laboratory Tests 10/19/20 20:18: Glucometer 194H 10/20/20 05:21: Glucometer 216H 10/20/20 11:50: White Blood Count 14.2H, Red Blood Count 3.77L, Hemoglobin 12.0L, Hematocrit 36L , Mean Corpuscular Volume 95, Mean Corpuscular Hemoglobin 32, Mean Corpuscular Hemoglobin Concent 34, Red Cell Distribution Width 11.3, Platelet Count 328, Mean Platelet Volume 9.3, Immature Granulocyte % (Auto) 1, Neutrophils (%) (Auto) 72, Lymphocytes (%) (Auto) 12, Monocytes (%) (Auto) 14H, Eosinophils (%) (Auto) 0, Basophils (%) (Auto) 0, Neutrophils # (Auto) 10.2H, Lymphocytes # (Auto) 1.8, Monocytes # (Auto) 2.0H, Eosinophils # (Auto) 0.1, Basophils # (Auto) 0.0, Immature Granulocyte # (Auto) 0.1, Sodium Level 128L, Potassium Level 3.8, Chloride Level 92L, Carbon Dioxide Level 29, Anion Gap 7, Blood Urea Nitrogen 8, Creatinine 0.70, Estimat Glomerular Filtration Rate > 60, BUN/Creatinine Ratio 11, Glucose Level 238H, Calcium Level 7.7L, Corrected Calcium 9.0, Total Bilirubin 0.4, Aspartate Amino Transf (AST/SGOT) 28, Alanine Aminotransferase (ALT/SGPT) 24, Alkaline Phosphatase 84, Total Protein 5.3L, Albumin 2.4L Microbiology 10/16/20 Blood Culture - Preliminary, Resulted No growth Assessment/Plan Assessment/Plan Assessment/Plan RLE cellulitis - currently receiving Cefepime and Vancomycin, WBC improving T2DM Heavy tobacco use - refused available options(patch, gum, lozenge) Xray and US of RLE to r/o abscess or DVT. Currently does not appear to have an abscess Continue to monitor labs, progression of cellulitis, and radiology results to determine if surgical intervention is needed. Clinical Quality Measures AMI/AHF: ASA po Prior to arrival: No DVT/VTE Risk/Contraindication: Risk Factor Score Per Nursin RFS Level Per Nursing on Admit: 4+=Very High GLENN VANN DO 10/20/201915: History of Present Illness History of Present Illness History of Present Illness Consult requested by Dr. Poe for cellulitis right lower extremity. Patient is a 50-year-old male who has had cellulitis to the right lower extremity for about a month and a half he states. Patient states that it was causing significant pain over the last week approximately and seem to be worsening. Patient states he has sharp stabbing pain with no radiation. Moderate to severe pain. Nothing makes it better. Moving or touching the area makes it worse. Patient states he is also been having chest pain nausea vomiting and shortness of breath as the initial reason why he came here he states. Patient wanting cigarettes. Patient feels that nobody is taking care of him and upset that he is still not getting adequate pain control. Patient states that he did not want to come here in the first place but was transferred here. States that people are trying to make him feel like a Dunce Allergies and Home Medications Allergies Coded Allergies: Penicillins (Unverified Adverse Reaction, Unknown, 07/22/19) Home Medications Cyclobenzaprine HCl 10 Mg Tablet, 10 MG PO Q8H PRN for SPASMS Prescribed by: JAH PALACIOS on 10/13/20 1731 Ibuprofen 800 Mg Tablet, 800 MG PO Q8H PRN for PAIN Prescribed by: JAH PALACIOS on 10/13/20 1731 Patient Home Medication List Home Medication List Reviewed: Yes Past Gbqqeru-Hwgkgk-Ogkwpy Hx Reviewed Nursing Assessment Reviewed/Agree w Nursing PMH: Yes Family Medical History Significant Family History: No Pertinent Family Hx Review of Systems-General Constitutional: No chills, No diaphoresis EENTM: dental problems; No ear pain Respiratory: No cough; short of breath Cardiovascular: chest pain, Hx of Intervention Gastrointestinal: No abdominal pain Genitourinary: No decreased output, No dysuria Musculoskeletal: No muscle pain; muscle stiffness (RLE) Skin: change in color (cellulitis/erythema to RLE; distal thigh extending to proximal leg), other (pain/tenderness to R distal postero-lateral thigh extending to proximal postero-lateral leg) Psychiatric/Neurological: Anxiety; Denies Depressed All Other Systems Reviewed Negative Unless Noted: Yes (Negative excepted noted.) Physical Exam-General Problems Physical Exam General Appearance: no apparent distress, thin HEENT: PERRL/EOMI, normal ENT inspection Neck: full range of motion, normal inspection Respiratory: chest non-tender, no respiratory distress, no accessory muscle use Cardiovascular: normal peripheral pulses, regular rate, rhythm, no JVD Gastrointestinal: non tender, soft, no organomegaly Rectal: deferred Back: normal inspection, no CVA tenderness, no vertebral tenderness Extremities: normal range of motion (limited ROM R knee due to pain), inflammation (RLE with a large area of erythema, induration, and swelling behind knee extending from distal thigh to proximal leg), swelling Neurologic/Psychiatric: alert, oriented x 3, other (agitated) Skin: normal color (area of erythema to RLE, otherwise normal color), warm/dry Lymphatic: no adenopathy Assessment/Plan Assessment/Plan Assessment/Plan RLE cellulitis - currently receiving Cefepime and Vancomycin, WBC improving T2DM Heavy tobacco use - refused available options(patch, gum, lozenge) Xray and US of RLE to r/o abscess and foreign body. Currently does not appear to have an abscess No surgical intervention at this time continue with medical management. Supervisory-Addendum Brief Verification & Attestation Participated in pt care: history, MDM, physical Personally performed: exam, history, MDM, supervision of care Care discussed with: Medical Student Procedures: n/a Results interpretation: Verified all documentation Verification and Attestation of Medical Student E/M Service A medical student performed and documented this service in my presence. I reviewed and verified all information documented by the medical student and made modifications to such information, when appropriate. I personally performed the physical exam and medical decision making. Glenn Vann, Oct 20, 2020,19:16 MARIPOSA MEEHAN MED STUDENT Oct 20, 2020 18:13 GLENN VANN DO Oct 20, 2020 19:16
[2020-10-20 20:00] VITALS: BP 126/73
[2020-10-20] MEDS: ENOXAPARIN 40 MG/0.4 ML (LOVENOX) SYR SC SCH (20:06)
[2020-10-21] MEDS: HYDROmorphone 2 MG/ML VIAL (DILAUDID) IV PRN ×11 (00:43→23:30)
[2020-10-21 00:44] VITALS: BP 132/61
[2020-10-21] MEDS: inSUlin ASPART (NovoLOG) 1 UNIT/0.01 ML (CHARGE PER UNIT) SC SCH ×7 (06:11→22:39)
[2020-10-21] MEDS: VANCOMYCIN 1250 MG/NS 250 ML IVPB IV SCH ×4 (06:19→17:16)
[2020-10-21] MEDS: KCL 8 MEQ (MICRO K) TABLET PO SCH (06:20)
[2020-10-21] MEDS: CEFEPIME INJECTION 1,000 MG in WATER (STERILE) FOR INJECTION 10 ML IV SCH ×2 (06:20→11:28)
[2020-10-21 06:33] LABS: BASOPHILS % (AUTO) 0 % (0-10); EOSINOPHILS # (AUTO) 0.1 10^3/uL (0.0-0.3); EOSINOPHILS % (AUTO) 1 % (0-10); HEMATOCRIT 36 % (40-54); LYMPHOCYTES % (AUTO) 13 % (12-44); MEAN CORPUSCULAR HEMOGLOBIN 32 pg (25-34); MEAN CORPUSCULAR HGB CONC 34 g/dL (32-36); MEAN CORPUSCULAR VOLUME 96 fL (80-99); MEAN PLATELET VOLUME 9.1 fL (9.0-12.2); MONOCYTES # (AUTO) 1.7 10^3/uL (0.0-1.0); MONOCYTES % (AUTO) 11 % (0-12); NEUTROPHILS # (AUTO) 11.5 10^3/uL (1.8-7.8); NEUTROPHILS % (AUTO) 75 % (42-75); PLATELET COUNT 350 10^3/uL (130-400); WHITE BLOOD COUNT 15.5 10^3/uL (4.3-11.0)
[2020-10-21 06:45] LABS: ALBUMIN 2.5 GM/DL (3.2-4.5)
[2020-10-21 06:46] LABS: CHLORIDE 92 MMOL/L (98-107); SODIUM 129 MMOL/L (135-145)
[2020-10-21 06:47] LABS: CALCIUM 7.8 MG/DL (8.5-10.1)
[2020-10-21 06:48] LABS: GLUCOSE 107 MG/DL (70-105); TOTAL PROTEIN 5.6 GM/DL (6.4-8.2)
[2020-10-21 06:49] LABS: CARBON DIOXIDE 32 MMOL/L (21-32)
[2020-10-21 06:50] LABS: BILIRUBIN,TOTAL 0.4 MG/DL (0.1-1.0)
[2020-10-21 06:51] LABS: ALKALINE PHOSPHATASE 84 U/L (40-136)
[2020-10-21 06:52] LABS: CREATININE SERUM 0.62 MG/DL (0.60-1.30); GFR ESTIMATED > 60
[2020-10-21 06:53] LABS: BUN/CREATININE RATIO 11
[2020-10-21 06:54] LABS: ALANINE AMINOTRANSFERASE 24 U/L (0-55)
--- NOTE | 2020-10-21 07:17 | Progress Note - Surgery ---
MARIPOSA MEEHAN MED STUDENT 10/21/20 0717: Subjective Date Seen by a Provider: Oct 21, 2020 Time Seen by a Provider: 06:45 Subjective/Events-last exam Pt seen and examined. Pt was awake and groaning in pain upon entering, stating "1000 out of 10" pain to his R knee. Denies other issues/complaints and just wants pain relief. Nurse notified to give next dose of pain medication Review of Systems Pulmonary: No Dyspnea Cardiovascular: No: Chest Pain, Lt Headedness Gastrointestinal: No: Nausea, Vomiting, Abdominal Pain Musculoskeletal: leg pain (R knee) Focused Exam Time of Focused Exam: 14:11 Objective Exam Vital Signs Date Time Temp Pulse Resp B/P (MAP) Pulse Ox O2 Delivery O2 Flow Rate FiO2 10/21/20 00:44 37.0 89 20 132/61 (84) 95 Room Air 10/20/20 20:00 37.5 98 18 126/73 (90) 98 Room Air 10/20/20 20:00 Room Air 10/20/20 12:00 36.5 86 16 130/76 (94) 92 Room Air 10/20/20 08:00 Room Air 10/20/20 08:00 37.0 93 20 125/60 (81) 95 Room Air I & O 10/21/20 07:00 Intake Total 1835 ml Output Total 1580 ml Balance 255 ml Capillary Refill : Less Than 3 SecondsLess Than 3 Seconds General Appearance: WD/WN, Chronically ill, Mild Distress (pt complaining of severe pain to R knee/area of cellulitis) HEENT: PERRL/EOMI, Pharynx Normal, Moist Mucous Membranes Neck: Full Range of Motion, Normal Inspection Respiratory: Chest Non Tender, Lungs Clear, Normal Breath Sounds, No Accessory Muscle Use, No Respiratory Distress Cardiovascular: Regular Rate, Rhythm, No Edema, No Gallop, No JVD, No Murmur, Normal Peripheral Pulses Peripheral Pulses: 2+ Radial Pulses (R), 2+ Radial Pulses (L) Gastrointestinal: non tender, soft, no organomegaly Extremity: Swelling, Other (erythema right posterior thigh) Neurologic/Psychiatric: Alert, Oriented x3, No Motor/Sensory Deficits, Normal Mood/Affect Skin: Warm/Dry, Erythema (posterior R knee) Results Lab Laboratory Tests 10/20/20 11:50: White Blood Count 14.2H, Red Blood Count 3.77L, Hemoglobin 12.0L, Hematocrit 36L , Mean Corpuscular Volume 95, Mean Corpuscular Hemoglobin 32, Mean Corpuscular Hemoglobin Concent 34, Red Cell Distribution Width 11.3, Platelet Count 328, Mean Platelet Volume 9.3, Immature Granulocyte % (Auto) 1, Neutrophils (%) (Auto) 72, Lymphocytes (%) (Auto) 12, Monocytes (%) (Auto) 14H, Eosinophils (%) (Auto) 0, Basophils (%) (Auto) 0, Neutrophils # (Auto) 10.2H, Lymphocytes # (A uto) 1.8, Monocytes # (Auto) 2.0H, Eosinophils # (Auto) 0.1, Basophils # (Auto) 0.0, Immature Granulocyte # (Auto) 0.1, Sodium Level 128L, Potassium Level 3.8, Chloride Level 92L, Carbon Dioxide Level 29, Anion Gap 7, Blood Urea Nitrogen 8, Creatinine 0.70, Estimat Glomerular Filtration Rate > 60, BUN/Creatinine Ratio 1 1, Glucose Level 238H, Calcium Level 7.7L, Corrected Calcium 9.0, Total Bilirubin 0.4, Aspartate Amino Transf (AST/SGOT) 28, Alanine Aminotransferase (ALT/SGPT) 24, Alkaline Phosphatase 84, Total Protein 5.3L, Albumin 2.4L 10/20/20 20:40: Glucometer 213H 10/21/20 05:59: Glucometer 113H 10/21/20 06:22: White Blood Count 15.5H, Red Blood Count 3.73L, Hemoglobin 12.0L, Hematocrit 36L , Mean Corpuscular Volume 96, Mean Corpuscular Hemoglobin 32, Mean Corpuscular Hemoglobin Concent 34, Red Cell Distribution Width 11.2, Platelet Count 350, Mean Platelet Volume 9.1, Immature Granulocyte % (Auto) 1, Neutrophils (%) (Auto) 75, Lymphocytes (%) (Auto) 13, Monocytes (%) (Auto) 11, Eosinophils (%) (Auto) 1, Basophils (%) (Auto) 0, Neutrophils # (Auto) 11.5H, Lymphocytes # (Auto) 2.0, Monocytes # (Auto) 1.7H, Eosinophils # (Auto) 0.1, Basophils # (Auto) 0.0, Immature Granulocyte # (Auto) 0.1, Sodium Level 129L, Potassium Level 4.0, Chloride Level 92L, Carbon Dioxide Level 32, Anion Gap 5, Blood Urea Nitrogen 7, Creatinine 0.62, Estimat Glomerular Filtration Rate > 60, BUN/Creatinine Ratio 11, Glucose Level 107H, Calcium Level 7.8L, Corrected Calcium 9.0, Total Bilirubin 0.4, Aspartate Amino Transf (AST/SGOT) 30, Alanine Aminotransferase (ALT/SGPT) 24, Alkaline Phosphatase 84, Total Protein 5.6L, Albumin 2.5L Microbiology 10/16/20 Blood Culture - Preliminary, Resulted No growth Assessment/Plan Assessment/Plan Assessment/Plan RLE cellulitis - currently receiving Cefepime and Vancomycin, WBC improving T2DM Heavy tobacco use - refused available options(patch, gum, lozenge) Cellulitis appears to being improving from yesterday Xray and US of RLE to r/o abscess and foreign body. Currently does not appear to have an abscess No surgical intervention at this time continue with medical management. Clinical Quality Measures AMI/AHF: ASA po Prior to arrival: No DVT/VTE Risk/Contraindication: Risk Factor Score Per Nursin RFS Level Per Nursing on Admit: 4+=Very High GLENN BONILLA DO 10/21/20 1227: Subjective Subjective/Events-last exam Patient still with extreme pain to right lower extremity. Hurts to move. Denies n/v fever sweats chills shortness of breath or chest pain. Had u/s showing complex fluid collection of right lower extremity hematoma vs abscess. Objective Exam General Appearance: Anxious, Chronically ill HEENT: PERRL/EOMI, Moist Mucous Membranes Neck: Normal Inspection, Non Tender Respiratory: Chest Non Tender, No Accessory Muscle Use, No Respiratory Distress Cardiovascular: Regular Rate, Rhythm, No JVD Gastrointestinal: non tender, soft, no organomegaly Extremity: Swelling, Other (erythema right posterior thigh indurated area, superior part likely abscess softer than yesterday) Neurologic/Psychiatric: Alert, Oriented x3, No Motor/Sensory Deficits Skin: Warm/Dry, Erythema (posterior R knee and surrounding erythema), Other (multiple small scabbed wounds in all over body) Lymphatic: No Adenopathy Assessment/Plan Assessment/Plan Assessment/Plan RLE cellulitis with abscess (complex fluid collection - currently receiving Cefepime and Vancomycin, WBC improving T2DM Heavy tobacco use refused any supplement such as patch Patient discussed that he has a collection of fluid likely abscess and needs drained. We discussed at length the risks and benefits of procedure. He understands and wishes to proceed. Patient was began to be prepped and draped in sterile fashion. Patient then began cussing and threatening me, I tried to discuss further and re-educate patient on needs. He continues to be verbally abusive so I left to deescalate the situation. Supervisory-Addendum Brief Verification & Attestation Participated in pt care: history, MDM, physical Personally performed: exam, history, MDM, supervision of care Care discussed with: Medical Student Procedures: n/a Results interpretation: Verified all documentation Verification and Attestation of Medical Student E/M Service A medical student performed and documented this service in my presence. I reviewed and verified all information documented by the medical student and made modifications to such information, when appropriate. I personally performed the physical exam and medical decision making. Glenn Bonilla, Oct 21, 2020,12:34 MARIPOSA MEEHAN MED STUDENT Oct 21, 2020 07:17 GLENN BONILLA DO Oct 21, 2020 12:27
[2020-10-21 08:00] VITALS: BP 141/85
--- NOTE | 2020-10-21 08:13 | NUR ---
DR. VANN IN TO SEE PT, REPORTED TO PT THAT THE REDNESS OF RT LEG LOOKS BETTER
--- NOTE | 2020-10-21 09:22 | Progress Note - Hospitalist ---
Subjective HPI/CC On Admission Date Seen by Provider: Oct 21, 2020 Time Seen by Provider: 10:00 Patient reports right leg soreness behind the knee for several weeks. Got progressively worse and then he had noted redness swelling traveling up the leg. He denied anterior knee pain or swelling. He underwent venous Doppler evaluati on that reportedly did not reveal any evidence for blood clot. He had been having some night sweats and because of this and weakness he presented to the emergency room where he had evidence for cellulitis with a sending lymphangitis his white count was 32,000 and he was admitted with SIRS secondary to his cellulitis. He has a history of type 2 diabetes for which he had taken insulin in the past. He reports he is not taking any therapy for diabetes with a history of recent incarceration. He has had no form of diabetic monitoring. He reports no previous history of skin infection or bone infection. He is not aware of any kidney problems vision is somewhat poor bilaterally and he reports numbness to the level of his ankles bilaterally. Subjective/Events-last exam Pt dissatisfied with nurses and everyone Vancomycin and Cefepime maintained Ultrasound shows abscess needs I&D but he doesnt want anything done right now Threatening to chelita everyone in the hospital so will ask administration to confer with him Pain medication has been maintained but he has significant requirements that are unable to be maintained at such a high dose of pain medication at such a freq uent time frame Maintain on Lovenox Review of Systems General: Fatigue, Malaise Musculoskeletal: leg pain Focused Exam Time of Focused Exam: 14:11 Objective Exam Vital Signs Vital Signs Date Time Temp Pulse Resp B/P (MAP) Pulse Ox O2 Delivery O2 Flow Rate FiO2 10/22/20 00:59 36.7 97 22 145/66 (92) 93 Room Air Capillary Refill : Less Than 3 SecondsLess Than 3 Seconds General Appearance: No Apparent Distress, WD/WN, Anxious, Chronically ill Respiratory: Lungs Clear Cardiovascular: Regular Rate, Rhythm Neurologic/Psychiatric: Alert, Oriented x3 Results/Procedures Lab Laboratory Tests 10/21/20 06:22 Patient resulted labs reviewed. Assessment/Plan Assessment and Plan Assess & Plan/Chief Complaint Assessment: Right lower extremity cellulitis DM OOC Plan: IV abx Pain meds 10/20/20: Dr Bonilla consultation appreciated Lovenox maintained Vanc and Cefepime 10/21/20: Consult Dr Man for I&D since he cursed Dr Bonilla out Very difficult situation with such aggressive behavior IV abx Monitor labs Clinical Quality Measures AMI/AHF: ASA po Prior to arrival: No DVT/VTE Risk/Contraindication: Risk Factor Score Per Nursin RFS Level Per Nursing on Admit: 4+=Very High LORNA FARMER DO Oct 21, 2020 09:22
--- NOTE | 2020-10-21 09:51 | Diagnostic Imaging Report ---
Right lower extremity ultrasound nonvascular. INDICATION: Red warm area posterior to right knee/thigh. There are no prior exams available for comparison. FINDINGS: Along the posterior aspect of the distal femur, there is a roughly 10 x 4 cm area of mixed echogenicity. This could represent hematoma. The possibility that this is related to an infectious process should also be considered. Given the density of the material within this lesion this area may not be drainable, however. Even so, if a drainage is attempted ultrasound assistance could be provided. There is no other abnormality identified. IMPRESSION: 1. There is a 10 x 4 cm complex area of mixed echogenicity in the soft tissues posterior to the distal femur. Whether this is related to hematoma formation or to an infectious process is not certain. Recommendations as above. 2. These results were discussed with Dr. Mansoor Bonilla. Dictated by: Dictated on workstation # [id number]
[2020-10-21] MEDS: KETOROLAC 15 MG/ML VIAL IVP PRN (10:01)
[2020-10-21] MEDS: oxyCODONE/APAP 5/325MG (PERCOCET 5) TABLET PO PRN (10:11)
[2020-10-21] MEDS: NICOTINE PATCH REMOVAL TP SCH (10:12)
[2020-10-21] MEDS: NICOTINE 21 MG (NICODERM) PATCH TD SCH (10:13)
--- NOTE | 2020-10-21 10:22 | NUR ---
DR. FARMER HAS BEEN IN & SPOKE W PT, DISCUSSED U/S RESULTS W PT. APPROX 10 MIN AGO, DR. VANN'S MOBILE QA TESTER JUST IN W/IN THE LAST FEW MIN, NOTIFIED PT THAT DR. VANN RECOMMENDED PERFORMING I & D ON AREA. PT RANTING & RAMBLING, STATES, " I DON'T KNOW IF I WANT VIA [facility] OPERATING ON ME." PT STATES, "WHY DIDN'T THEY FIND THIS DAYS AGO, PT STATES THAT HE WANTS TO TAKE TO A DIRECTOR OF OPERATIONS SUPPORT BEFORE HAVING ANYTHING DONE." PT AGITATED, PT REFUSED NICOTINE PATCH, STATING THAT HE, " MAY GO DOWN & SMOKE A CIGARETTE." OFFERS UP THAT HE STARTED SMOKING CIGARETTES WHEN HE WAS 5 YEARS OLD, STARTED DOING METH SHORTLY AFTER THAT, A CHILD." DR. VANN NOTIFIED BY HIS MOBILE QA TESTER. NOTIFIED MANAGER OPERATIONS, CYNTHIA Guzmán RN.
--- NOTE | 2020-10-21 10:37 | NUR ---
DR. VANN IN ROOM ALONG W ASST AT THIS TIME TALKING TO PT
[2020-10-21] MEDS ORDERED: LIDOCAINE 1% INJ 20 ML 20 ML VIAL ONE (10:44)
[2020-10-21] MEDS ORDERED: EPINEPHrine INJECTION 1 MG/ML AMP ONE (10:48)
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
--- NOTE | 2020-10-21 11:20 | NUR ---
THIS RN PROVIDED INFORMED CONSENT TO PT APPROX 15 MIN AGO, INSTR RE: RISKS/BENEFITS, BY DR. VANN, & THIS RN. PT TOOK CONSENT, & STATED, "COME BACK IN AN HOUR, & I NEED A PEN THAT I CAN KEEP TO SIGN IT, i'M GOING TO READ ALL OF IT BEFORE I SIGN IT."
--- NOTE | 2020-10-21 11:32 | NUR ---
DR. VANN CAME TO ROOM TO PERFORM PROCEDURE, PT STATES THAT HE'S STILL READING THE CONSENT.
--- NOTE | 2020-10-21 13:49 | NUR ---
CAME IN TO ROOM TO ADMINISTER PAIN MEDICINE, REQUESTED. UPON ENTERING ROOM, PT IS QUIET, WATCHING TV. AFTER ENTERING ROOM, PT BEGAN TO MOAN & GROAN. PT DOES APPEAR MORE SETTLED DOWN AT THIS TIME THAN HE WAS THIS MORNING, NOT RANTING AT THIS TIME HE WAS THIS MORNING.
--- NOTE | 2020-10-21 14:28 | NUR ---
DR. GODWIN SPOKE W PT AT LENGTH, SEE NEW ORDERS.
--- NOTE | 2020-10-21 14:29 | NUR ---
PT WAS VERY AGITATED WHEN DR. VANN WAS STARTING TO DO I & D PROCEDURE EARLIER THIS MORNING, AFTER PT HAD READ & SIGNED CONSENT. PT WAS REFUSING TO POSITION HIMSELF IN CORRECT POSITION SO THAT THE DRLeanna COULD GET ACCESS TO THE AREA. PT CUSSING, & VERBALLY HOSTILE TO STAFF. RANTING PROFANITIES AT STAFF. Addendum: 10/22/20 at 0821 by RUTH ANN MARMOLEJO RN PT WOULD NOT LIE STILL FOR DR. VANN TO PERFORM THE I & D PROCEDURE. AFTER PT DID ROLL OVER ON TO ABDOMEN REQUESTED BY THE DOCTOR, PT KEPT TURNING HEAD, LOOKING BACK TO HIS RIGHT SIDE, MOVING HIS ARMS ABOUT, EVEN TO THE POINT OF TOUCHING THE STERILE DRAPE AFTER PREPPED. PT HURLING OBSCENITIES TO & ABOUT STAFF.
--- NOTE | 2020-10-21 14:31 | Progress Note-Pre Operative ---
Pre-Operative Progress Note H&P Reviewed The H&P was reviewed, patient examined and no changes noted. Date Seen by Provider: Oct 21, 2020 Time Seen by Provider: 15:00 Date H&P Reviewed: Oct 21, 2020 Time H&P Reviewed: 15:00 Pre-Operative Diagnosis: right popliteal superficial thrombophlebitis and cellulitis SONJA GODWIN MD Oct 21, 2020 14:31
--- NOTE | 2020-10-21 14:37 | NUR ---
PT WAS BEING NONCOMPLIANT WHEN ASKED HIM HIS NAME & BIRTHDAY TO VERIFY PAIN MEDS EARLIER THIS MORNING, STATES, "IF YOU GUYS DON'T KNOW WHO I AM BY NOW, I BETTER GET OUT OF HERE NOW."
--- NOTE | 2020-10-21 15:01 | CONSULTATION REPORT ---
DATE OF SERVICE: 10/21/2020 ATTENDING PRIMARY CARE PHYSICIAN: [facility]. ADMITTING PHYSICIAN: Dr. Poe. HISTORY OF PRESENT ILLNESS: The patient is a 50-year-old male who presented with right popliteal pain approximately a week before admission. He was examined and found to have cellulitis in the popliteal region. He does have an extensive past medical history and does smoke 2 packs of cigarettes daily and does smoke marijuana regularly. He also states that in the past he was an IV drug user with methamphetamine as a drug of choice; however, has not for greater than 5 years. An ultrasound was performed of the popliteal region, which did show superficial thrombus of the vein. Also upon examination, it appears that he does have a significant surrounding cellulitis and edema as well as possible fluctuance to indicate a suppurative thrombophlebitis. Recommendation is to proceed with an incision and drainage and possible venectomy in the operating room under general anesthesia. PAST MEDICAL HISTORY: Congenital heart defect, COPD, history of gastroesophageal reflux disease, history of myocardial infarction, atrial fibrillation, hepatitis C, diabetes, anxiety. PAST SURGICAL HISTORY: Open heart surgery at 12 weeks of age, hiatal hernia repair and Cassie fundoplication. ALLERGIES: HYDROCODONE, PENICILLIN. MEDICATIONS: Cyclobenzaprine 10 mg q.8 hours p.r.n. SOCIAL HISTORY: Positive smoke, 50 pack years, daily marijuana smoke, history of IV methamphetamine use; however, has not used in over 5 years. FAMILY HISTORY: The patient is adopted. VITAL SIGNS: Temperature 37.4, blood pressure 141/85, pulse 99, respirations 20, pulse ox 94% on room air. REVIEW OF SYSTEMS: Slightly thin-appearing male who does appear to be agitated; however, does verbalize appropriately. He states that he is not experiencing any shortness of breath or difficulty breathing. No cough or sputum production. No chest pain, palpitations, diaphoresis. No nausea or vomiting, no diarrhea or constipation. No fever or chills, no recent inadvertent weight loss. All other review of systems negative. PHYSICAL EXAMINATION: CHEST: A few scattered rales and distant breath sounds bilaterally. HEART: Regular, no murmurs. EXTREMITIES: There is significant edema as well as redness in the right popliteal region. There is also significant amount of edema and the possibility of fluctuance; however, there is no palpable cord to identify the superficial thrombophlebitis. Palpable posterior tibial arteries bilaterally. ABDOMEN: Soft, nontender, nondistended. SKIN: Warm, dry. LABORATORY DATA: WBC 15.5, hemoglobin 12.0, hematocrit 36, platelets 350. BUN 7, creatinine 0.62. ASSESSMENT AND PLAN: A 50-year-old male with superficial thrombophlebitis of the right popliteal region with resultant cellulitis as well as possibility of a suppurative superficial thrombophlebitis. This has persisted despite antibiotics and we will proceed with exploration and incision and drainage if an abscess is identified as well as a venectomy if the causative vein is identified. We will also leave the wound open and he will likely need home health for b.i.d. wet to dry dressing changes. Job ID: [id number] DocumentID: [id number] Dictated Date: 10/21/2020 14:39:05 Nut Roaster Date: 10/21/2020 15:01:23 Dictated By: SONJA GODWIN MD MTDD
[2020-10-21 16:00] VITALS: BP 113/66
--- NOTE | 2020-10-21 16:54 | NUR ---
This RN called patient today to speak with him regarding his care concerns during his hospital stay. Patient stated to this RN "I have no concerns at this time." I asked patient a second time before our conversation ended and patient stated "My issues have been resolved but thanks" This RN offered my office contact number, patient states he doesn't need it. This RN instructed patient to inform his primary RN or the nurse managers if he feels he needs to talk to Risk Management in the future regarding his care. Patient expressed his understanding and gratitude. This RN is available for any future concerns from patient or nursing staff.
[2020-10-21] MEDS ORDERED: inSUlin ASPART (NovoLOG) 1 UNIT/0.01 ML (CHARGE PER UNIT) ONE (17:12)
--- NOTE | 2020-10-21 19:00 | NUR ---
PROVIDED PAIN MED AGAIN TO PT. PT TALKING ON HIS CELL PHONE TO HIS FRIEND, PT STATED TO THIS FRIEND, "I'M GOING TO TURN INTO [employer] PRETTY SOON."
--- NOTE | 2020-10-21 19:45 | NUR ---
THIS RN PROVIDED INFORMED CONSENT TO PT. PT REFUSING TO SING TO CONSENT, MRSA SWAB AT THIS TIME. EDUCATED PT BUT EDUCATION DID NOT RECEIVED. PT STAYING THAT " I AM SO TIRED RIGHT NOW AND I WILL SIGN THE PAPER WHEN I WANT TO. I WILL SIGN PAPER AT 0500 AM "
[2020-10-21] MEDS: ENOXAPARIN 40 MG/0.4 ML (LOVENOX) SYR SC SCH (20:22)
[2020-10-21] MEDS: oxyCODONE/APAP 10/325MG (PERCOCET 10) TABLET PO PRN (20:22)
[2020-10-22] VITALS (11 sets, daily range): BP systolic 108–154; BP diastolic 58–90
--- NOTE | 2020-10-22 00:10 | NUR ---
EDUCATED PT ABOUT NPO STATUS BC OF PROCEDURE. BEING VERY HOSTILE AND SCREAMING TO THIS RN. SAYING "I WILL DO WHAT I FUCKING WANT."
[2020-10-22] MEDS: HYDROmorphone 2 MG/ML VIAL (DILAUDID) IV PRN ×4 (00:59→14:59)
[2020-10-22] MEDS: LORazepam INJ 2 MG/ML (ATIVAN) VIAL IVP PRN ×2 (00:59→08:34)
--- NOTE | 2020-10-22 03:00 | NUR ---
assumed pt care from RAÚL Ferris. agree wioth previous assessment. pt in bed resting with eyes closed at this time.
--- NOTE | 2020-10-22 05:40 | NUR ---
pt awake at this time. this nurse talked to pt about signing consent for the I&D scheduled for this morning, pt states " i'm not too sure about that." this nurse asked pt if he would like me to check in again in an hour, pt state " that may be the best".
[2020-10-22] MEDS: VANCOMYCIN 1250 MG/NS 250 ML IVPB IV SCH ×2 (05:46)
--- NOTE | 2020-10-22 05:54 | Progress Note - Hospitalist ---
Subjective HPI/CC On Admission Date Seen by Provider: Oct 22, 2020 Time Seen by Provider: 10:00 Patient reports right leg soreness behind the knee for several weeks. Got progressively worse and then he had noted redness swelling traveling up the leg. He denied anterior knee pain or swelling. He underwent venous Doppler evaluati on that reportedly did not reveal any evidence for blood clot. He had been having some night sweats and because of this and weakness he presented to the emergency room where he had evidence for cellulitis with a sending lymphangitis his white count was 32,000 and he was admitted with SIRS secondary to his cellulitis. He has a history of type 2 diabetes for which he had taken insulin in the past. He reports he is not taking any therapy for diabetes with a history of recent incarceration. He has had no form of diabetic monitoring. He reports no previous history of skin infection or bone infection. He is not aware of any kidney problems vision is somewhat poor bilaterally and he reports numbness to the level of his ankles bilaterally. Subjective/Events-last exam Patient s/p I&D by Dr Man Severe abscess and necrosis noted in OR dx narcotizing fascitis Abx maintained Pain improved Review of Systems Musculoskeletal: leg pain Focused Exam Time of Focused Exam: 14:11 Objective Exam Vital Signs Vital Signs Date Time Temp Pulse Resp B/P (MAP) Pulse Ox O2 Delivery O2 Flow Rate FiO2 10/23/20 03:47 36.1 80 15 121/67 (85) 96 Room Air 10/22/20 12:00 2.00 Capillary Refill : Less Than 3 SecondsLess Than 3 Seconds General Appearance: No Apparent Distress, WD/WN, Chronically ill Respiratory: Lungs Clear Cardiovascular: Regular Rate, Rhythm Results/Procedures Lab Laboratory Tests 10/22/20 05:45 Patient resulted labs reviewed. Assessment/Plan Assessment and Plan Assess & Plan/Chief Complaint Assessment: Right lower extremity cellulitis DM OOC Plan: IV abx Pain meds 10/20/20: Dr Bonilla consultation appreciated Lovenox maintained Vanc and Cefepime 10/21/20: Consult Dr Man for I&D since he cursed Dr Bonilla out Very difficult situation with such aggressive behavior IV abx Monitor labs 10/22/20: s/p I&D Dr Man revealing necrotizing fascitis Clinical Quality Measures AMI/AHF: ASA po Prior to arrival: No DVT/VTE Risk/Contraindication: Risk Factor Score Per Nursin RFS Level Per Nursing on Admit: 4+=Very High LORNA FARMER DO Oct 22, 2020 05:54
[2020-10-22 06:14] LABS: BASOPHILS % (AUTO) 0 % (0-10); EOSINOPHILS # (AUTO) 0.1 10^3/uL (0.0-0.3); EOSINOPHILS % (AUTO) 1 % (0-10); HEMATOCRIT 36 % (40-54); LYMPHOCYTES # (AUTO) 1.9 10^3/uL (1.0-4.0); LYMPHOCYTES % (AUTO) 11 % (12-44); MEAN CORPUSCULAR HEMOGLOBIN 32 pg (25-34); MEAN CORPUSCULAR HGB CONC 33 g/dL (32-36); MEAN CORPUSCULAR VOLUME 97 fL (80-99); MEAN PLATELET VOLUME 8.9 fL (9.0-12.2); MONOCYTES # (AUTO) 1.7 10^3/uL (0.0-1.0); MONOCYTES % (AUTO) 9 % (0-12); NEUTROPHILS # (AUTO) 13.9 10^3/uL (1.8-7.8); NEUTROPHILS % (AUTO) 78 % (42-75); PLATELET COUNT 408 10^3/uL (130-400); WHITE BLOOD COUNT 17.7 10^3/uL (4.3-11.0)
[2020-10-22 06:33] LABS: ALANINE AMINOTRANSFERASE 24 U/L (0-55); ALBUMIN 2.6 GM/DL (3.2-4.5); ALKALINE PHOSPHATASE 96 U/L (40-136); BILIRUBIN,TOTAL 0.5 MG/DL (0.1-1.0); BUN/CREATININE RATIO 9; CALCIUM 8.1 MG/DL (8.5-10.1); CARBON DIOXIDE 30 MMOL/L (21-32); CHLORIDE 90 MMOL/L (98-107); CREATININE SERUM 0.67 MG/DL (0.60-1.30); GFR ESTIMATED > 60; GLUCOSE 171 MG/DL (70-105); POTASSIUM 4.8 MMOL/L (3.6-5.0); SODIUM 130 MMOL/L (135-145); TOTAL PROTEIN 5.9 GM/DL (6.4-8.2)
[2020-10-22 06:50] LABS: BAND NEUTROPHILS 3 %; LYMPHOCYTES % (MANUAL) 15 %; MONOCYTES % (MANUAL) 6 %; NEUTROPHILS % (MANUAL) 76 %; TOXIC GRANULATION/VACUOLAZATIO 2+
[2020-10-22] MEDS: inSUlin ASPART (NovoLOG) 1 UNIT/0.01 ML (CHARGE PER UNIT) SC SCH ×7 (06:59→20:53)
[2020-10-22] MEDS: KCL 8 MEQ (MICRO K) TABLET PO SCH (08:35)
[2020-10-22] MEDS ORDERED: LIDOCAINE/EPI 1%-1:200,000 (XYLOCAINE) 30 ML VIAL ONE (09:09)
[2020-10-22] MEDS: LACTATED RINGERS 1,000 ML IV PRN ×3 (09:25→10:56)
[2020-10-22] MEDS ORDERED: MIDAZOLAM 2 MG/2 ML (VERSED) VIAL ONE (09:28)
[2020-10-22] MEDS ORDERED: fentaNYL INJECTION 100 MCG/2 ML AMP ONE (09:29)
--- NOTE | 2020-10-22 10:22 | Progress Note-Post Operative ---
Post-Operative Progess Note Surgeon (s)/Concrete Mixer Truck Driver (s) Surgeon SONJA GODWIN MD Concrete Mixer Truck Driver: elizabeth epstein HAND I THERMAL CUTTER Pre-Operative Diagnosis right popliteal superficial thrombophlebitis and cellulitis Post-Operative Diagnosis right posterior lower extremity necrotizing fasciitis. Procedure & Operative Findings Date of Procedure 10/22/20 Procedure Performed/Findings wide debridement right lower extremity skin, subcutaneous and muscle [id number]. Anesthesia Type get Estimated Blood Loss Estimated blood loss (mL): minimal Specimens/Packing Specimens Removed left leg skin, subc, fascia, muscle. SONJA GODWIN MD Oct 22, 2020 10:22
[2020-10-22] MEDS ORDERED: ROCURONIUM 10 MG/ML 5 ML SYRINGE IV ONE (10:31)
[2020-10-22] MEDS ORDERED: SUCCINYLCHOLINE INJ 100 MG/5 ML SYR/VIAL ONE (10:31)
[2020-10-22] MEDS ORDERED: ONDANSETRON 4 MG/2 ML (SDV) Z0FRAN ONE (10:31)
[2020-10-22] MEDS ORDERED: SEVOFLURANE (ULTANE) 15 ML INHAL SOLN ONE (10:31)
[2020-10-22] MEDS ORDERED: LIDOCAINE PF 2% 5 ML (XYLOCAINE) VIAL ONE (10:31)
[2020-10-22] MEDS ORDERED: proPOfol 200 MG/20 ML (DIPRIVAN) VIAL IV ONE (10:31)
--- NOTE | 2020-10-22 12:00 | NUR ---
returned from surgery, drowsy, report from Selin RN, wound dressing intact, no air leak, no drainage in canister, O2 on per nc at 2 liters, call light within reach
--- NOTE | 2020-10-22 13:30 | NUR ---
New wound vac placement, orders rec'd. Wound Vac & canister checked. Patient sleepy, asks questions. Questions answered. Rt leg positioned on pillow for support. pt rests. will con't to monitor.
--- NOTE | 2020-10-22 13:54 | Anesthesia-General Post-Op ---
General Patient Condition Mental Status/LOC: Same as Preop Cardiovascular: Satisfactory Nausea/Vomiting: Absent Respiratory: Satisfactory Pain: Controlled Complications: Absent Post Op Complications Complications None Follow Up Care/Instructions Patient Instructions None needed. Anesthesia/Patient Condition Patient Condition Patient is doing well, no complaints, stable vital signs, no apparent adverse anesthesia problems. No complications reported per nursing. KRISTINA SCOTT CRNA Oct 22, 2020 13:54
--- NOTE | 2020-10-22 14:30 | NUR ---
recheck of wound vac, patient less drowsy, asks how to get out of this place. Enc. patient to consume provided meal, especially protein for nutrition to help wound heal. Eats bites of mashed potatoes/gravy & vanilla pudding. Eats 1/2 serving chopped roast beef/gravy, small sips of tea in between bites. He would like a strawberry protein shake as a snack if possible later. Through active listening and motivation interviewing, Patient shares at this time that he lost his in December of this year. states, "I took really good care of her until she passed." states they do not have any children and that he lives on his own. support and encouragement offered. patient allows this RN to measure wound while he continues to eat. will con't to monitor.
[2020-10-22] MEDS: NICOTINE 21 MG (NICODERM) PATCH TD SCH (14:52)
[2020-10-22] MEDS: NICOTINE PATCH REMOVAL TP SCH (14:53)
--- NOTE | 2020-10-22 15:50 | OPERATIVE REPORT ---
DATE OF SERVICE: 10/22/2020 ATTENDING EDUCATIONAL ADVISOR: [facility]. ADMITTING PHYSICIAN: Dr. Poe. PREOPERATIVE DIAGNOSIS: Cellulitis, suppurative thrombophlebitis right lower extremity popliteal region. POSTOPERATIVE DIAGNOSIS: Necrotizing fasciitis, right low lower extremity popliteal region encompassing 40 x 15 cm encompassing the skin, subcutaneous tissue and muscle. PROCEDURES PERFORMED: Wide debridement, right lower extremity skin, subcutaneous tissue, muscle, 40 x 15 cm and placement of wound VAC. SURGEON: Sonja Godwin MD. FIELD AIDE: Jacobo Magdaleno APRN. ANESTHESIA: General endotracheal. ESTIMATED BLOOD LOSS: 100 mL. FINDINGS: Necrotizing fasciitis encompassing the skin, subcutaneous tissue, fascia overlying the muscle of the popliteal region of the right lower extremity, 40 x 15 cm in size. This was widely debrided to viable bleeding tissue and the wound VAC applied. DISPOSITION: The patient tolerated the procedure well. INDICATIONS FOR PROCEDURE: The patient is a 50-year-old male, who presented with a right popliteal pain a few weeks before admission. He was examined and found to have a significant amount of cellulitis in the popliteal region. He does have an extensive past medical history including smoking two packs of cigarettes daily as well as marijuana smoke daily as well. He also has a past history of IV drug abuse with methamphetamine as a drug of choice; however, has not used this for greater than 5 years. An ultrasound was performed, which did show a thrombus of the superficial popliteal vein. Upon examination, he was found to have a significant amount of cellulitis, edema and fluctuance indicating a likely suppurative thrombophlebitis. The recommendation was to proceed with an incision and drainage, exploration as well as a possible significant debridement under anesthesia. DESCRIPTION OF PROCEDURE: The patient was brought to the operating room and laid supine on the table. After adequate IV pain and sedative medications and general endotracheal intubation, the patient was placed in a left lateral decubitus position and the right lower extremity was prepped and draped in a standard surgical fashion. A 1% lidocaine with epinephrine was used to anesthetize the overlying skin along the right popliteal region. A skin incision was made using a 15-blade and immediately there was a significant amount of purulence, as well this purulence tracking throughout the entire skin, subcutaneous tissue and muscle to a much wider area consistent with a necrotizing fasciitis. We then proceeded with a wide extensive debridement of the skin, subcutaneous tissue as well as fascia and muscle until a clean viable bleeding tissue was identified. The vast majority of this region was the popliteal fossa extending to the midthigh and to the superior portion of the calf. The debridement was done using a sharp dissection as well as electrocautery. We then proceeded with meticulous hemostasis using electrocautery. Once good hemostasis was observed, we then proceeded with copious irrigation with 3 liters of saline using a power pierce and shave press operator. We then proceeded with placement of a wound VAC over the large wound. The patient tolerated the procedure well. He will need continued IV antibiotics. The purulence was sent for culture and sensitivity. He will likely need a second look as well as a change of wound VAC in approximately 72 hours. Job ID: [id number] DocumentID: [id number] Dictated Date: 10/22/2020 10:30:49 Human Resources Psychologist Date: 10/22/2020 15:50:01 Dictated By: SONJA GODWIN MD MTDD
[2020-10-22] MEDS ORDERED: TROUGH ORDER-PHARMACY XX NR (16:00)
[2020-10-22] MEDS: VANCOMYCIN 1,750 MG/NS 500 ML IVPB IV SCH ×2 (17:24)
--- NOTE | 2020-10-22 18:15 | NUR ---
PATIENT PULLED WHOLE WOUND VAC DRESSING OFF RIGHT LEG, SMALL AMOUNT BLEEDING FROM RIGHT LEG WOUND, WHEN NURSE ASKED PATIENT WHY HE PULLED DRESSING OFF HE SAID BECAUSE HE DIDN'T WANT IT ON, PATIENT HAD BLOOD ON HIS HANDS, PATIENT ASKED NURSE IF HE COULD LEAVE AND GO TO [place] TO GET A SMOKE, NURSE INSTRUCTED PATIENT HE NEEDED WOUND CARE AND ANTIBIOTICS TO GET HIS WOUND TO HEAL, WET SALINE,4X4 GAUZE DRESSING APPLIED TO WOUND, THEN ABD PADS AND THEN WRAPPED WITH KERLEX, DR GODWIN NOTIFIED AND ORDER GIVEN TO DO WET DRESSING AND NOTIFY WOUND CARE IN AM TO HAVE WOUND VAC REPLACED.
[2020-10-22] MEDS: ENOXAPARIN 40 MG/0.4 ML (LOVENOX) SYR SC SCH (19:48)
[2020-10-22] MEDS: ACETAMINOPHEN 325 MG TABLET PO PRN (23:29)
[2020-10-23] VITALS: BP 125/68
[2020-10-23] MEDS: HYDROmorphone 2 MG/ML VIAL (DILAUDID) IV PRN ×3 (00:30→13:33)
[2020-10-23] MEDS: LORazepam INJ 2 MG/ML (ATIVAN) VIAL IVP PRN ×2 (02:17→21:47)
[2020-10-23 03:47] VITALS: BP 121/67
[2020-10-23] MEDS: VANCOMYCIN 1,750 MG/NS 500 ML IVPB IV SCH ×4 (05:44→16:48)
--- NOTE | 2020-10-23 05:44 | Progress Note - Hospitalist ---
Subjective HPI/CC On Admission Date Seen by Provider: Oct 23, 2020 Time Seen by Provider: 10:00 Patient reports right leg soreness behind the knee for several weeks. Got progressively worse and then he had noted redness swelling traveling up the leg. He denied anterior knee pain or swelling. He underwent venous Doppler evaluati on that reportedly did not reveal any evidence for blood clot. He had been having some night sweats and because of this and weakness he presented to the emergency room where he had evidence for cellulitis with a sending lymphangitis his white count was 32,000 and he was admitted with SIRS secondary to his cellulitis. He has a history of type 2 diabetes for which he had taken insulin in the past. He reports he is not taking any therapy for diabetes with a history of recent incarceration. He has had no form of diabetic monitoring. He reports no previous history of skin infection or bone infection. He is not aware of any kidney problems vision is somewhat poor bilaterally and he reports numbness to the level of his ankles bilaterally. Subjective/Events-last exam Took off wound vac last night Very odd behavior Labs improved Abx maintained Review of Systems Musculoskeletal: leg pain Focused Exam Time of Focused Exam: 14:11 Objective Exam Vital Signs Vital Signs Date Time Temp Pulse Resp B/P (MAP) Pulse Ox O2 Delivery O2 Flow Rate FiO2 10/24/20 04:05 36.0 86 18 106/73 (84) 95 Room Air 10/22/20 12:00 2.00 Capillary Refill : Less Than 3 SecondsLess Than 3 Seconds General Appearance: No Apparent Distress, WD/WN, Chronically ill Respiratory: Chest Non Tender, Lungs Clear, Normal Breath Sounds, No Accessory Muscle Use, No Respiratory Distress Cardiovascular: Regular Rate, Rhythm, No Edema, No Gallop, No JVD, No Murmur, Normal Peripheral Pulses Neurologic/Psychiatric: Alert, Oriented x3, No Motor/Sensory Deficits, Normal Mood/Affect Results/Procedures Lab Laboratory Tests 10/23/20 05:45 10/24/20 04:45 Patient resulted labs reviewed. Assessment/Plan Assessment and Plan Assess & Plan/Chief Complaint Assessment: Right lower extremity cellulitis DM OOC Plan: IV abx Pain meds 10/20/20: Dr Bonilla consultation appreciated Lovenox maintained Vanc and Cefepime 10/21/20: Consult Dr Man for I&D since he cursed Dr Bonilla out Very difficult situation with such aggressive behavior IV abx Monitor labs 10/22/20: s/p I&D Dr Man revealing necrotizing fascitis 10/23/20: Very angry and aggressive Reapply wound vac Clinical Quality Measures AMI/AHF: ASA po Prior to arrival: No DVT/VTE Risk/Contraindication: Risk Factor Score Per Nursin RFS Level Per Nursing on Admit: 4+=Very High LORNA FARMER DO Oct 23, 2020 05:44
[2020-10-23] MEDS: inSUlin ASPART (NovoLOG) 1 UNIT/0.01 ML (CHARGE PER UNIT) SC SCH ×7 (05:45→21:30)
[2020-10-23] MEDS: KCL 8 MEQ (MICRO K) TABLET PO SCH (05:45)
[2020-10-23 05:53] LABS: BASOPHILS % (AUTO) 0 % (0-10); EOSINOPHILS # (AUTO) 0.1 10^3/uL (0.0-0.3); EOSINOPHILS % (AUTO) 1 % (0-10); HEMATOCRIT 35 % (40-54); HEMOGLOBIN 11.7 g/dL (13.3-17.7); LYMPHOCYTES # (AUTO) 2.6 10^3/uL (1.0-4.0); LYMPHOCYTES % (AUTO) 17 % (12-44); MEAN CORPUSCULAR HEMOGLOBIN 33 pg (25-34); MEAN CORPUSCULAR HGB CONC 34 g/dL (32-36); MEAN CORPUSCULAR VOLUME 96 fL (80-99); MEAN PLATELET VOLUME 8.6 fL (9.0-12.2); MONOCYTES # (AUTO) 1.5 10^3/uL (0.0-1.0); MONOCYTES % (AUTO) 10 % (0-12); NEUTROPHILS # (AUTO) 10.6 10^3/uL (1.8-7.8); NEUTROPHILS % (AUTO) 71 % (42-75); PLATELET COUNT 470 10^3/uL (130-400); WHITE BLOOD COUNT 14.9 10^3/uL (4.3-11.0)
[2020-10-23 06:35] LABS: ALBUMIN 2.6 GM/DL (3.2-4.5); CHLORIDE 95 MMOL/L (98-107); POTASSIUM 3.5 MMOL/L (3.6-5.0); SODIUM 136 MMOL/L (135-145)
[2020-10-23 06:36] LABS: CALCIUM 8.1 MG/DL (8.5-10.1)
[2020-10-23 06:38] LABS: GLUCOSE 107 MG/DL (70-105)
[2020-10-23 06:39] LABS: CARBON DIOXIDE 29 MMOL/L (21-32)
[2020-10-23 06:40] LABS: BILIRUBIN,TOTAL 0.3 MG/DL (0.1-1.0)
[2020-10-23 06:41] LABS: ALKALINE PHOSPHATASE 83 U/L (40-136); CREATININE SERUM 0.67 MG/DL (0.60-1.30); GFR ESTIMATED > 60
[2020-10-23 06:42] LABS: BUN/CREATININE RATIO 7
[2020-10-23 06:44] LABS: ALANINE AMINOTRANSFERASE 22 U/L (0-55)
[2020-10-23 08:00] VITALS: BP 166/93
[2020-10-23] MEDS: NICOTINE PATCH REMOVAL TP SCH (09:39)
[2020-10-23] MEDS: oxyCODONE/APAP 10/325MG (PERCOCET 10) TABLET PO PRN ×2 (09:39→18:57)
[2020-10-23] MEDS: NICOTINE 21 MG (NICODERM) PATCH TD SCH (09:39)
[2020-10-23] MEDS: CEFEPIME INJECTION 1,000 MG in WATER (STERILE) FOR INJECTION 10 ML IV SCH ×3 (09:39→21:29)
--- NOTE | 2020-10-23 09:51 | NUR ---
WOUND CARE NOTIFIED FOR WOUND VAC PLACEMENT/ASSESSMENT
[2020-10-23 12:36] VITALS: BP 136/74
--- NOTE | 2020-10-23 12:47 | Progress Note ---
Subjective Date Seen by a Provider: Oct 23, 2020 Time Seen by a Provider: 10:00 Subjective/Events-last exam patient took off wound vac last night. patient extremely non-compliant and beligerent. has right leg necrotizing fasciits. Focused Exam Time of Focused Exam: 14:11 Objective Exam Vital Signs Date Time Temp Pulse Resp B/P (MAP) Pulse Ox O2 Delivery O2 Flow Rate FiO2 10/23/20 12:36 35.4 90 16 136/74 (94) 91 Room Air 10/23/20 08:00 36.0 93 18 166/93 (117) 96 Room Air 10/23/20 03:47 36.1 80 15 121/67 (85) 96 Room Air 10/23/20 01:47 36.4 10/23/20 00:25 36.0 10/23/20 00:00 38.3 98 17 125/68 (87) 95 Room Air 10/22/20 23:29 38.0 10/22/20 19:50 Room Air 10/22/20 16:26 36.8 103 16 108/58 (75) 93 Room Air I & O 10/23/20 07:00 Intake Total 2772.5 ml Output Total 2450 ml Balance 322.5 ml Capillary Refill : Less Than 3 SecondsLess Than 3 Seconds General Appearance: No Apparent Distress HEENT: PERRL/EOMI Neck: Full Range of Motion Respiratory: Chest Non Tender, Decreased Breath Sounds Cardiovascular: Regular Rate, Rhythm Gastrointestinal: normal bowel sounds, non tender, soft Extremity: Other (large right leg open wound, no new areas necrosis. ) Neurologic/Psychiatric: Alert, Oriented x3 Skin: Normal Color Lymphatic: No Adenopathy Results Lab Laboratory Tests 10/22/20 13:56: Glucometer 190H 10/22/20 15:39: Glucometer 183H 10/22/20 16:00: Vancomycin Level Trough 7.0L 10/22/20 17:33: Glucometer 96 10/22/20 20:18: Glucometer 242H 10/23/20 05:41: Glucometer 109 10/23/20 05:45: White Blood Count 14.9H, Red Blood Count 3.58L, Hemoglobin 11.7L, Hematocrit 35L , Mean Corpuscular Volume 96, Mean Corpuscular Hemoglobin 33, Mean Corpuscular Hemoglobin Concent 34, Red Cell Distribution Width 11.1, Platelet Count 470H, Mean Platelet Volume 8.6L, Immature Granulocyte % (Auto) 1, Neutrophils (%) (Auto) 71, Lymphocytes (%) (Auto) 17, Monocytes (%) (Auto) 10, Eosinophils (%) (Auto) 1, Basophils (%) (Auto) 0, Neutrophils # (Auto) 10.6H, Lymphocytes # (Auto) 2.6, Monocytes # (Auto) 1.5H, Eosinophils # (Auto) 0.1, Basophils # (Auto) 0.0, Immature Granulocyte # (Auto) 0.1, Sodium Level 136, Potassium Level 3.5L, Chloride Level 95L, Carbon Dioxide Level 29, Anion Gap 12, Blood Urea Nitrogen 5L, Creatinine 0.67, Estimat Glomerular Filtration Rate > 60, BUN/Creatinine Ratio 7, Glucose Level 107H, Calcium Level 8.1L, Corrected Calcium 9.2, Total Bilirubin 0.3, Aspartate Amino Transf (AST/SGOT) 25, Alanine Aminotransferase (ALT/SGPT) 22, Alkaline Phosphatase 83, Total Protein 6.0L, Albumin 2.6L Microbiology 10/22/20 Gram Stain - Final, Resulted 10/22/20 Anaerobic Culture, Resulted Pending 10/22/20 Surgical Culture - Preliminary, Resulted Staphylococcus aureus 10/21/20 MRSA Screen - Final, Complete MRSA not isolated 10/16/20 Blood Culture - Final, Complete No growth Assessment/Plan Assessment/Plan Assess & Plan/Chief Complaint necrotizing fasciitis right posterior lower extremity s/p WLE. wound care to place another vac and change q 72hrs. will monitor wound progression vs improvement. Clinical Quality Measures AMI/AHF: ASA po Prior to arrival: No DVT/VTE Risk/Contraindication: Risk Factor Score Per Nursin RFS Level Per Nursing on Admit: 4+=Very High SONJA GODWIN MD Oct 23, 2020 12:47
[2020-10-23] MEDS: CLINDAMYCIN 600 MG/50 ML IVPB 50 ML IV SCH ×2 (15:32→21:49)
[2020-10-23 16:00] VITALS: BP 147/74
[2020-10-23 19:00] VITALS: BP 158/71
[2020-10-23] MEDS: ENOXAPARIN 40 MG/0.4 ML (LOVENOX) SYR SC SCH (21:29)
[2020-10-24 00:20] VITALS: BP 136/86
[2020-10-24] MEDS: oxyCODONE/APAP 10/325MG (PERCOCET 10) TABLET PO PRN ×3 (01:01→16:14)
[2020-10-24] MEDS: HYDROmorphone 2 MG/ML VIAL (DILAUDID) IV PRN ×5 (01:07→21:53)
--- NOTE | 2020-10-24 01:12 | NUR ---
0024-pt has cigarettes and custodial engineer at bedside, pt refusing to allow this rn to lock them up. supervisor communications and signals Andreina notified. 0038-Andreina at bedside, pt refusing to allow her to lock up his cigarettes & custodial engineer, pt verbally agreed to not smoke in his room.
--- NOTE | 2020-10-24 01:16 | NUR ---
0055-this rn in checking on pt, pt states he would like to go to [facility] for a slush. this rn informed pt that when he is a patient in the hospital he cannot leave unless he has orders for a day pass or goes AMA. pt verbalized understanding. 0100-pt states he is in need of pain medication, pt reports his pain is a 7/10, this rn brought pt a prn Percocet, pt then refused to take it stating "no where is my Dilaudid." this rn explained to pt that his pain rating per orders has to be higher to get the Dilaudid. pt then states that his pain is a 10/10 and has to have his Dilaudid. 0107-prn dilaudid administered to pt. pt then informs this rn that he is likely going to leave if Perri his girlfriend will come get him, but he would let this rn know for sure.
--- NOTE | 2020-10-24 01:31 | NUR ---
pt resting in bed with eyes closed, respirations even not labored, no distress noted at this time.
[2020-10-24] MEDS ORDERED: TROUGH ORDER-PHARMACY XX NR (04:00)
[2020-10-24 04:05] VITALS: BP 106/73
[2020-10-24] MEDS: CEFEPIME INJECTION 1,000 MG in WATER (STERILE) FOR INJECTION 10 ML IV SCH ×4 (04:38→21:26)
[2020-10-24 04:54] LABS: BASOPHILS % (AUTO) 0 % (0-10); EOSINOPHILS # (AUTO) 0.1 10^3/uL (0.0-0.3); EOSINOPHILS % (AUTO) 1 % (0-10); HEMATOCRIT 32 % (40-54); HEMOGLOBIN 10.8 g/dL (13.3-17.7); LYMPHOCYTES # (AUTO) 2.5 10^3/uL (1.0-4.0); LYMPHOCYTES % (AUTO) 23 % (12-44); MEAN CORPUSCULAR HEMOGLOBIN 32 pg (25-34); MEAN CORPUSCULAR HGB CONC 34 g/dL (32-36); MEAN CORPUSCULAR VOLUME 96 fL (80-99); MEAN PLATELET VOLUME 8.5 fL (9.0-12.2); MONOCYTES # (AUTO) 1.1 10^3/uL (0.0-1.0); MONOCYTES % (AUTO) 10 % (0-12); NEUTROPHILS % (AUTO) 65 % (42-75); PLATELET COUNT 500 10^3/uL (130-400); WHITE BLOOD COUNT 10.8 10^3/uL (4.3-11.0)
[2020-10-24 05:02] LABS: ALBUMIN 2.6 GM/DL (3.2-4.5)
[2020-10-24 05:03] LABS: CHLORIDE 96 MMOL/L (98-107); POTASSIUM 3.9 MMOL/L (3.6-5.0); SODIUM 134 MMOL/L (135-145)
[2020-10-24 05:04] LABS: CALCIUM 8.1 MG/DL (8.5-10.1)
[2020-10-24 05:05] LABS: GLUCOSE 83 MG/DL (70-105)
[2020-10-24 05:06] LABS: CARBON DIOXIDE 30 MMOL/L (21-32)
[2020-10-24 05:07] LABS: BILIRUBIN,TOTAL 0.3 MG/DL (0.1-1.0)
[2020-10-24 05:09] LABS: ALKALINE PHOSPHATASE 75 U/L (40-136); CREATININE SERUM 0.68 MG/DL (0.60-1.30); GFR ESTIMATED > 60
[2020-10-24 05:10] LABS: BUN/CREATININE RATIO 6
[2020-10-24 05:12] LABS: ALANINE AMINOTRANSFERASE 23 U/L (0-55)
[2020-10-24] MEDS: inSUlin ASPART (NovoLOG) 1 UNIT/0.01 ML (CHARGE PER UNIT) SC SCH ×7 (06:10→21:52)
[2020-10-24] MEDS: KCL 8 MEQ (MICRO K) TABLET PO SCH (06:21)
[2020-10-24] MEDS: CLINDAMYCIN 600 MG/50 ML IVPB 50 ML IV SCH ×3 (06:23→21:54)
[2020-10-24] MEDS: VANCOMYCIN 1,750 MG/NS 500 ML IVPB IV SCH ×4 (06:28→17:03)
[2020-10-24 08:00] VITALS: BP 166/91
[2020-10-24] MEDS: NICOTINE PATCH REMOVAL TP SCH (08:05)
[2020-10-24] MEDS: NICOTINE 21 MG (NICODERM) PATCH TD SCH ×2 (08:05→08:08)
--- NOTE | 2020-10-24 08:08 | NUR ---
DISPOSABLE TRAY ORDER PLACED-THIS RN FOUND A SPOON AND FORK IN PT BED THAT WAS BROKE IN HALF.
[2020-10-24] MEDS: LORazepam INJ 2 MG/ML (ATIVAN) VIAL IVP PRN ×2 (08:12→16:13)
--- NOTE | 2020-10-24 13:55 | Progress Note - Hospitalist ---
Subjective HPI/CC On Admission Date Seen by Provider: Oct 24, 2020 Time Seen by Provider: 10:30 Patient reports right leg soreness behind the knee for several weeks. Got progressively worse and then he had noted redness swelling traveling up the leg. He denied anterior knee pain or swelling. He underwent venous Doppler evaluation that reportedly did not reveal any evidence for blood clot. He had been having some night sweats and because of this and weakness he presented to the emergency room where he had evidence for cellulitis with a sending lymphangitis his white count was 32,000 and he was admitted with SIRS secondary to his cellulitis. He has a history of type 2 diabetes for which he had taken insulin in the past. He reports he is not taking any therapy for diabetes with a history of recent incarceration. He has had no form of diabetic monitoring. He reports no previous history of skin infection or bone infection. He is not aware of any kidney problems vision is somewhat poor bilaterally and he reports numbness to the level of his ankles bilaterally. Subjective/Events-last exam Pain is an issue as it has been Wound vac maintained Labs ok Almost left AMA last night Very aggressive and verbally abusive Dilaudid and Ativan maintained No BM for 5 days so added Miralax and Senna Review of Systems Musculoskeletal: leg pain Focused Exam Time of Focused Exam: 14:11 Objective Exam Vital Signs Vital Signs Date Time Temp Pulse Resp B/P (MAP) Pulse Ox O2 Delivery O2 Flow Rate FiO2 10/25/20 00:43 36.9 86 20 138/77 (97) 97 10/24/20 19:30 Room Air 10/22/20 12:00 2.00 Capillary Refill : Less Than 3 SecondsLess Than 3 Seconds General Appearance: No Apparent Distress, WD/WN, Chronically ill Results/Procedures Lab Patient resulted labs reviewed. Assessment/Plan Assessment and Plan Assess & Plan/Chief Complaint Assessment: Right lower extremity cellulitis DM OOC Plan: IV abx Pain meds 10/20/20: Dr Bonilla consultation appreciated Lovenox maintained Vanc and Cefepime 10/21/20: Consult Dr Man for I&D since he cursed Dr Bonilla out Very difficult situation with such aggressive behavior IV abx Monitor labs 10/22/20: s/p I&D Dr Man revealing necrotizing fascitis 10/23/20: Very angry and aggressive Reapply wound vac 10/24/20: Abx wound vac Verbally abusive Clinical Quality Measures AMI/AHF: ASA po Prior to arrival: No DVT/VTE Risk/Contraindication: Risk Factor Score Per Nursin RFS Level Per Nursing on Admit: 4+=Very High LORNA FARMER DO Oct 24, 2020 13:55
[2020-10-24 16:00] VITALS: BP 138/62
[2020-10-24 20:00] VITALS: BP 131/77
[2020-10-24] MEDS ORDERED: polyethylene glycoL POWDER 17 GM (MIRALAX) PACK PO ONE (21:00)
[2020-10-24] MEDS: SENNA W/DOCUSATE (SENOKOT S) TABLET PO SCH (21:29)
--- NOTE | 2020-10-24 21:29 | NUR ---
THIS RN ENTERED THE ROOM TO ADMINISTER MEDICATIONS TO THIS PT. PT WAS SITTING UPRIGHT IN BED SWINGING HIS CHAIN WALLET AROUND IN THE AIR IN FRONT OF HIM. PT STATED THAT HE PUT IT TOGETHER WITH FISHING JIGS BECAUSE "THAT IS THE WAY THEY DO IT IN THE [facility]". PT STATED THAT HE HAS HAD 6 NURSES, 4 DOCTORS, & 3 PAS AND NONE OF THEM KNOW HOW TO FIX THIS WALLET WITH FISHING JIGS. (PT DID NOT HAVE FISHING JIGS AT BEDSIDE ONLY THE CHAIN FOR HIS WALLET) PT THEN STATED THAT HE HAD A RAT ON HIS FLOOR LAST NIGHT SO HE HAD TO WALK ON THE CEILING TO GET TO THE BATHROOM. THIS RN ASSURED PT THAT HE DID NOT HAVE ANY RATS IN HIS ROOM, PT STATED "I'M NOT SURE ABOUT THAT." THIS PT THEN BEGAN ASKING THIS RN ABOUT HIS INSULINS TRYING TO UNDERSTAND THE DIFFERENCES BETWEEN LEVEMIR & NOVOLOG; THIS RN EXPLAINED THE DIFFERENCES BETWEEN LONG ACT & SHORT ACTING INSULINS. THIS PT THEN INFORMED THIS RN THAT HE WAS TOLD BY A DOCTOR TODAY WHO CAME IN TO SEE HIM ON A GOLF CART, THAT HE COULD HAVE THIS GOLF CART TO CARRY AROUND HIS INSULIN BUT ONLY IF HE COULD CATCH THE GOLF BALLS WITH HIS MOUTH VIA A STRAW & GARDEN HOSE. THIS RN ASKED THIS PT THE ORIENTATION QUESTIONS-PT IS A&OX4. PT STATED "I KNOW I SAY SOME WILD SHIT BUT MAN IT'S TRUE."
[2020-10-24] MEDS: ENOXAPARIN 40 MG/0.4 ML (LOVENOX) SYR SC SCH (21:30)
[2020-10-25 00:43] VITALS: BP 138/77
[2020-10-25] MEDS: oxyCODONE/APAP 10/325MG (PERCOCET 10) TABLET PO PRN ×3 (00:46→23:22)
--- NOTE | 2020-10-25 01:00 | NUR ---
THIS RN ENTERED ROOM, PT TURNED OVER PROMPTLY IN BED AND DROPPED SOMETHING IN THE TRASH CAN. THIS RN FOUND A FOAM CUP WITH A SMALL AMOUNT OF WATER, A SMOKED CIGARETTE BUTT, AND ASHES. THIS RN INFORMED PT THAT HE WAS NOT ALLOWED TO SMOKE IN THE HOSPITAL. THIS RN ATTEMPTED TO TAKE AWAY HIS PATIENT ACCESS COORDINATOR, PT STATED THAT HE DID NOT KNOW WHERE IT WAS. THIS RN ASSISTED PT FINDING THE PATIENT ACCESS COORDINATOR THAT HE HAD IN HIS FRONT POCKET THAT WAS VISIBLE. PT HANDED THE PATIENT ACCESS COORDINATOR TO THIS RN WHICH WAS THEN LOCKED UP IN THE LOCK DRAWER. PT STATED HE WAS SORRY AND THAT HE WOULD NOT DO IT AGAIN. PT WAS OFFERED A NICOTINE PATCH, PT DECLINED.
[2020-10-25] MEDS: HYDROmorphone 2 MG/ML VIAL (DILAUDID) IV PRN ×7 (02:36→21:11)
[2020-10-25] MEDS: CEFEPIME INJECTION 1,000 MG in WATER (STERILE) FOR INJECTION 10 ML IV SCH ×4 (02:36→21:09)
[2020-10-25] MEDS: CLINDAMYCIN 600 MG/50 ML IVPB 50 ML IV SCH ×3 (05:15→21:13)
[2020-10-25] MEDS: inSUlin ASPART (NovoLOG) 1 UNIT/0.01 ML (CHARGE PER UNIT) SC SCH ×7 (05:55→21:10)
[2020-10-25] MEDS: KCL 8 MEQ (MICRO K) TABLET PO SCH (06:02)
[2020-10-25] MEDS: VANCOMYCIN 1,750 MG/NS 500 ML IVPB IV SCH ×4 (06:05→16:52)
[2020-10-25 07:05] LABS: HEMOGLOBIN 10.6 g/dL (13.3-17.7); MEAN PLATELET VOLUME 8.4 fL (9.0-12.2); WHITE BLOOD COUNT 8.7 10^3/uL (4.3-11.0)
[2020-10-25 07:25] LABS: ALANINE AMINOTRANSFERASE 22 U/L (0-55); ALBUMIN 2.7 GM/DL (3.2-4.5); ALKALINE PHOSPHATASE 68 U/L (40-136); BILIRUBIN,TOTAL 0.3 MG/DL (0.1-1.0); BUN/CREATININE RATIO 6; CALCIUM 8.4 MG/DL (8.5-10.1); CARBON DIOXIDE 31 MMOL/L (21-32); CHLORIDE 97 MMOL/L (98-107); CREATININE SERUM 0.66 MG/DL (0.60-1.30); GFR ESTIMATED > 60; GLUCOSE 96 MG/DL (70-105); POTASSIUM 4.3 MMOL/L (3.6-5.0); SODIUM 136 MMOL/L (135-145); TOTAL PROTEIN 6.3 GM/DL (6.4-8.2)
--- NOTE | 2020-10-25 07:25 | Progress Note - Hospitalist ---
Subjective HPI/CC On Admission Date Seen by Provider: Oct 25, 2020 Time Seen by Provider: 11:00 Patient reports right leg soreness behind the knee for several weeks. Got progressively worse and then he had noted redness swelling traveling up the leg. He denied anterior knee pain or swelling. He underwent venous Doppler evaluati on that reportedly did not reveal any evidence for blood clot. He had been having some night sweats and because of this and weakness he presented to the emergency room where he had evidence for cellulitis with a sending lymphangitis his white count was 32,000 and he was admitted with SIRS secondary to his cellulitis. He has a history of type 2 diabetes for which he had taken insulin in the past. He reports he is not taking any therapy for diabetes with a history of recent incarceration. He has had no form of diabetic monitoring. He reports no previous history of skin infection or bone infection. He is not aware of any kidney problems vision is somewhat poor bilaterally and he reports numbness to the level of his ankles bilaterally. Subjective/Events-last exam Patient refuses laxatives Very angry all the time No BM for 6 days Review of Systems Musculoskeletal: leg pain Focused Exam Time of Focused Exam: 14:11 Objective Exam Vital Signs Vital Signs Date Time Temp Pulse Resp B/P (MAP) Pulse Ox O2 Delivery O2 Flow Rate FiO2 10/25/20 23:27 36.4 88 20 135/70 (91) 96 Room Air 10/22/20 12:00 2.00 Capillary Refill : Less Than 3 SecondsLess Than 3 Seconds General Appearance: No Apparent Distress, WD/WN, Chronically ill, Other (dishelved) Results/Procedures Lab Laboratory Tests 10/25/20 07:00 10/26/20 05:59 Patient resulted labs reviewed. Assessment/Plan Assessment and Plan Assess & Plan/Chief Complaint Assessment: Right lower extremity cellulitis DM OOC Plan: IV abx Pain meds 10/20/20: Dr Bonilla consultation appreciated Lovenox maintained Vanc and Cefepime 10/21/20: Consult Dr Man for I&D since he cursed Dr Bonilla out Very difficult situation with such aggressive behavior IV abx Monitor labs 10/22/20: s/p I&D Dr Man revealing necrotizing fascitis 10/23/20: Very angry and aggressive Reapply wound vac 10/24/20: Abx wound vac Verbally abusive 10/25/20: Refuses laxatives High risk for impaction and narcotic bowel and obstruction Clinical Quality Measures AMI/AHF: ASA po Prior to arrival: No DVT/VTE Risk/Contraindication: Risk Factor Score Per Nursin RFS Level Per Nursing on Admit: 4+=Very High LORNA FARMER DO Oct 25, 2020 07:25
[2020-10-25 08:00] VITALS: BP 138/96
[2020-10-25] MEDS: LORazepam INJ 2 MG/ML (ATIVAN) VIAL IVP PRN ×3 (08:04→23:22)
[2020-10-25] MEDS: ONDANSETRON 4 MG/2 ML (SDV) Z0FRAN IVP PRN ×2 (08:04→12:05)
[2020-10-25] MEDS: SENNA W/DOCUSATE (SENOKOT S) TABLET PO SCH ×2 (08:30→20:04)
[2020-10-25] MEDS: NICOTINE PATCH REMOVAL TP SCH (08:30)
[2020-10-25] MEDS: NICOTINE 21 MG (NICODERM) PATCH TD SCH (09:00)
[2020-10-25 16:16] VITALS: BP 174/94
--- NOTE | 2020-10-25 19:30 | NUR ---
this rn entered the room to assess this pt, this pt asked this rn "where is the pimp? In the parking lot? he drives a [employer]. I need that bag of money." pt was asked orientation question- pt A&Ox4.
[2020-10-25] MEDS: ENOXAPARIN 40 MG/0.4 ML (LOVENOX) SYR SC SCH (21:09)
[2020-10-25 23:27] VITALS: BP 135/70
[2020-10-26] MEDS: CEFEPIME INJECTION 1,000 MG in WATER (STERILE) FOR INJECTION 10 ML IV SCH ×4 (02:57→20:34)
[2020-10-26] MEDS: HYDROmorphone 2 MG/ML VIAL (DILAUDID) IV PRN (02:58)
[2020-10-26] MEDS: CLINDAMYCIN 600 MG/50 ML IVPB 50 ML IV SCH ×3 (05:47→21:31)
[2020-10-26] MEDS: LORazepam INJ 2 MG/ML (ATIVAN) VIAL IVP PRN (05:48)
[2020-10-26] MEDS: KCL 8 MEQ (MICRO K) TABLET PO SCH (05:50)
[2020-10-26] MEDS: oxyCODONE/APAP 10/325MG (PERCOCET 10) TABLET PO PRN ×2 (05:55→20:47)
[2020-10-26 06:12] LABS: BASOPHILS % (AUTO) 0 % (0-10); EOSINOPHILS # (AUTO) 0.1 10^3/uL (0.0-0.3); EOSINOPHILS % (AUTO) 1 % (0-10); HEMATOCRIT 36 % (40-54); HEMOGLOBIN 11.8 g/dL (13.3-17.7); LYMPHOCYTES # (AUTO) 2.2 10^3/uL (1.0-4.0); LYMPHOCYTES % (AUTO) 23 % (12-44); MEAN CORPUSCULAR HEMOGLOBIN 32 pg (25-34); MEAN CORPUSCULAR HGB CONC 33 g/dL (32-36); MEAN CORPUSCULAR VOLUME 98 fL (80-99); MEAN PLATELET VOLUME 8.6 fL (9.0-12.2); MONOCYTES # (AUTO) 0.9 10^3/uL (0.0-1.0); MONOCYTES % (AUTO) 9 % (0-12); NEUTROPHILS # (AUTO) 6.2 10^3/uL (1.8-7.8); NEUTROPHILS % (AUTO) 66 % (42-75); PLATELET COUNT 672 10^3/uL (130-400); WHITE BLOOD COUNT 9.5 10^3/uL (4.3-11.0)
[2020-10-26] MEDS: VANCOMYCIN 1,750 MG/NS 500 ML IVPB IV SCH ×4 (06:17→18:27)
[2020-10-26 06:27] LABS: CHLORIDE 96 MMOL/L (98-107); POTASSIUM 4.6 MMOL/L (3.6-5.0); SODIUM 136 MMOL/L (135-145)
[2020-10-26 06:28] LABS: CALCIUM 9.1 MG/DL (8.5-10.1)
[2020-10-26 06:29] LABS: GLUCOSE 103 MG/DL (70-105); TOTAL PROTEIN 7.2 GM/DL (6.4-8.2)
[2020-10-26 06:30] LABS: CARBON DIOXIDE 31 MMOL/L (21-32)
[2020-10-26 06:31] LABS: BILIRUBIN,TOTAL 0.4 MG/DL (0.1-1.0)
[2020-10-26 06:32] LABS: ALKALINE PHOSPHATASE 79 U/L (40-136)
--- NOTE | 2020-10-26 06:32 | NUR ---
0550-WOUND CANISTER CHANGED BECAUSE PT DISCONNECTED THE TUBING & SUCKED UP ALL THE WATER OUT OF HIS WATER JUG INTO THE WOUND VAC CANISTER. PT STATING THAT HE IS HAVING ANXIETY & PAIN REQUESTING A "PAIN PILL AND IV XANAX" 0555-PRN PERCOCET & ATIVAN GIVEN 0630-PT STATES THAT HIS NERVOUSNESS AND PAIN (8/10) IS IMPROVED.
[2020-10-26 06:33] LABS: CREATININE SERUM 0.74 MG/DL (0.60-1.30); GFR ESTIMATED > 60
[2020-10-26 06:34] LABS: BUN/CREATININE RATIO 8
[2020-10-26 06:35] LABS: ALANINE AMINOTRANSFERASE 25 U/L (0-55)
[2020-10-26] MEDS: inSUlin ASPART (NovoLOG) 1 UNIT/0.01 ML (CHARGE PER UNIT) SC SCH ×7 (06:38→21:11)
[2020-10-26 08:00] VITALS: BP 156/86
[2020-10-26] MEDS: NICOTINE PATCH REMOVAL TP SCH (08:41)
[2020-10-26] MEDS: NICOTINE 21 MG (NICODERM) PATCH TD SCH (08:42)
[2020-10-26] MEDS: SENNA W/DOCUSATE (SENOKOT S) TABLET PO SCH ×2 (09:11→20:36)
--- NOTE | 2020-10-26 13:33 | Progress Note ---
Subjective Subjective/Events-last exam 50 yo M here with necrotizing fasciitis and now with wound vac in place. Patient is poor historian and has episodes of aggressive behavior, appropriate this AM. Tolerating PO diet. Review of Systems Pulmonary: No Dyspnea Cardiovascular: No: Chest Pain Gastrointestinal: No: Abdominal Pain Focused Exam Time of Focused Exam: 14:11 Objective Exam Last Set of Vital Signs Vital Signs Date Time Temp Pulse Resp B/P (MAP) Pulse Ox O2 Delivery O2 Flow Rate FiO2 10/26/20 08:00 36.1 92 20 156/86 (109) 98 Room Air 10/22/20 12:00 2.00 Capillary Refill : Less Than 3 SecondsLess Than 3 Seconds I&O Intake and Output 10/26/20 00:00 Intake Total 1580 ml Output Total 2700 ml Balance -1120 ml Intake Oral 1580 ml Output Urine Total 2700 ml # Voids 1 General: Alert, Oriented X3 Lungs: Clear to Auscultation, Normal Air Movement Heart: Regular Rate, No Murmurs Abdomen: Normal Bowel Sounds, Soft, No Tenderness Extremities: Other (Wound vac with good seal on RLE) Results/Procedures Lab Laboratory Tests 10/25/20 15:54: Glucometer 97 10/25/20 20:16: Glucometer 206H 10/26/20 05:59: White Blood Count 9.5, Red Blood Count 3.71L, Hemoglobin 11.8L, Hematocrit 36L, Mean Corpuscular Volume 98, Mean Corpuscular Hemoglobin 32, Mean Corpuscular Hemoglobin Concent 33, Red Cell Distribution Width 11.3, Platelet Count 672H, Mean Platelet Volume 8.6L, Immature Granulocyte % (Auto) 1, Neutrophils (%) (Auto) 66, Lymphocytes (%) (Auto) 23, Monocytes (%) (Auto) 9, Eosinophils (%) (Auto) 1, Basophils (%) (Auto) 0, Neutrophils # (Auto) 6.2, Lymphocytes # (Auto) 2.2, Monocytes # (Auto) 0.9, Eosinophils # (Auto) 0.1, Basophils # (Auto) 0.0, Immature Granulocyte # (Auto) 0.1, Sodium Level 136, Potassium Level 4.6, Chloride Level 96L, Carbon Dioxide Level 31, Anion Gap 9, Blood Urea Nitrogen 6L , Creatinine 0.74, Estimat Glomerular Filtration Rate > 60, BUN/Creatinine Ratio 8, Glucose Level 103, Calcium Level 9.1, Corrected Calcium 9.9, Total Bilirubin 0.4, Aspartate Amino Transf (AST/SGOT) 35H, Alanine Aminotransferase (ALT/SGPT) 25, Alkaline Phosphatase 79, Total Protein 7.2, Albumin 3.0L 10/26/20 11:28: Glucometer 258H Microbiology 10/22/20 Gram Stain - Final, Complete 10/22/20 Anaerobic Culture - Final, Complete No anaerobes isolated 10/22/20 Surgical Culture - Final, Complete Staphylococcus aureus 10/21/20 MRSA Screen - Final, Complete MRSA not isolated 10/16/20 Blood Culture - Final, Complete No growth Assessment/Plan Assessment/Plan (1) Necrotizing fasciitis Status: Acute Assessment & Plan: 10/26: Dr Man and wound care managing patient, wound vac in place (2) Uncontrolled insulin dependent diabetes mellitus Status: Chronic Assessment & Plan: 10/26: Will get A1c today Clinical Quality Measures AMI/AHF: ASA po Prior to arrival: No DVT/VTE Risk/Contraindication: Risk Factor Score Per Nursin RFS Level Per Nursing on Admit: 4+=Very High ALAINA OLEARY MD Oct 26, 2020 13:33
--- NOTE | 2020-10-26 13:34 | Physician Query Clarification ---
PQ-Present on Admission Admission/Discharge Admission Date: Oct 16, 2020 at 16:15 Discharge Date: Dr. Poe, Question: necrotizing fasciitis was documented in Dr. Man's Op rpt. Can you specify if this condition was present on admission? Please document a response in Progress Note or Discharge Summary. 1. Yes - Condition was present at the time of inpatient admission. 2. No - Condition was not present at the time of inpatient admission and it developed during the inpatient stay. 3. W - Provider is unable to clinically determine whether condition was present on admission or not. 4. Other [please specify] PHYSICIAN RESPONSE Condition was Present on Admit: No (2) Please remember a lack of response to the above will prompt a phone page by CDI/ Coding staff. In responding to this query, please exercise your independent professional judgment. The purpose of this communication is to more accurately reflect the complexity of your patients condition. The fact that a question is asked does not imply that any particular answer is desired or expected. Thank you for your timely response to this clarification. Requestors name: Elise THIS PHYSICIAN QUERY FORM IS A PERMANENT PART OF THE MEDICAL RECORD ELISE BUTLER Oct 26, 2020 13:34 LORNA POE DO Oct 26, 2020 15:13
--- NOTE | 2020-10-26 13:41 | Physician Query Clarification ---
PQ-Further Specificity Admission/Discharge Admission Date: Oct 16, 2020 at 16:15 Discharge Date: Dr. Poe, The medical record reflects the following clinical scenario: History/Risk Factors: Cellulits rt lower extremity Clinical Findings: per Op rpt preop findings state n ultrasound was performed, which did show a thrombus of the superficial popliteal vein. The ultrasound in the record states " here is a 10 x 4 cm complex area of mixed echogenicity in the soft tissues posterior to the distal femur. Whether this is related to hematoma formation or to an infectious process is not certain." The postop dx is necrotizing fasciitis Treatment: excisional debridement Question: Can you further specify the patient did have a superficial popliteal thrombosis after study per the clinical indicators above? Please document a response in the Progress Notes or Discharge Summary. 1. Yes, patient had a rt superficial popliteal thrombosis 2. No, rt superficial popliteal thrombosis was rules out. 3. Other, with explanation of the clinical findings. 4. Clinically undetermined, no explanation for the clinical findings. PHYSICIAN RESPONSE Can you specify per above: 2 (no) Please remember a lack of response to the above will prompt a phone page by CDI/Coding staff. In responding to this query, please exercise your independent professional judgment. The purpose of this communication is to more accurately reflect the complexity of your patients condition. The fact that a question is asked does not imply that any particular answer is desired or expected. Thank you for your timely response to this clarification. Requestors name: Mandy [email or web address] THIS PHYSICIAN QUERY FORM IS A PERMANENT PART OF THE MEDICAL RECORD MANDY BUTLER Oct 26, 2020 13:41 LORNA POE DO Oct 26, 2020 15:13
--- NOTE | 2020-10-26 13:48 | Physician Query Clarification ---
ELISE BUTLER 10/26/20 1348: PQD17 Principal Diagnosis Principal Diagnosis Document Diagnosis QUESTION: Please specify the condition(s) that was chiefly responsible for o ccasioning the admission to the hospital after study/evaluation based on your medical judgment. Please clarify the principal condition responsible for inpatient admission after study. 1. Cellulitis 2. rt superficial popliteal thrombosis 3. Necrotizing fasciitis Clinical Indicators/Findings On Admit/Eval/Treatment: 1. rt. leg soreness behind knee for several weeks progressively worse with redness and swelling 2. Necrotizing fasciitis, right low lower extremity popliteal region encompassing 40 x 15 cm encompassing the skin, subcutaneous tissue and muscle. Source Document: 1. H&P 2. OP rpt Well Control Instructor Note Well Control Instructor Note Please remember a lack of response to the above will prompt a phone page by CDI/coding staff. In responding to this query, please exercise your independent professional judgment. The purpose of this communication is to more accurately reflect the complexity of your patients condition. The fact that a question is asked does not imply that any particular answer is desired or expected. Thank you for your timely response to this clarification. Requestors name: Elise [email or web address] THIS PHYSICIAN QUERY FORM IS A PERMANENT PART OF THE MEDICAL RECORD LORNA FARMER DO 10/26/20 1514: PQD17 Principal Diagnosis Question Chief Reason for Admission Aft: 1 ELISE BUTLER Oct 26, 2020 13:48 LORNA FARMER DO Oct 26, 2020 15:14
--- NOTE | 2020-10-26 14:18 | NUR ---
"RD ASSESSMENT PMHx: DM; afib; hepatitis; PT INTERACTION: Pt was awake and semi-pleasant during nutrition follow-up. Note pt had AMS during assessment. Pt states he has not been eating well since last assessment. Note avg PO intake 60% x4d, per chart review. Pt states no issues with nausea, vomiting, constipation, or diarrhea since last assessment. Note pt has not had a BM x6d, per chart review. Pt currently on bowel regimen of senna BID and note pt has been refusing bowel stimulants, per chart review. Note presence of wound (RLE cellulitis), per chart review. ABNORMAL NUTRITION-RELATED LAB VALUES LOW: Cl 96; BUN 6; alb 3.0; HIGH: AST 35; Est. kcal needs: 5280-9922 kcal | 25-30 kcal/kg Est. Pro needs: 68-85 g Pro | 0.8-1.0 g Pro/kg PES STATEMENT: Inadequate oral intake (NI-2.1) related to loss of appetite, and constipation, as evidenced by pt interview, and avg PO intake 60% x4d. INTERVENTION: Continue with current diet order of CHO 60g/m 1snack diet, with modifier of DYS2 Mechanically Altered consistency; and on Disposable Trays. Pt may benefit from nutrition supplementation if PO intake declines. Will continue to follow and reassess as pt needs, intake, and status change. Anastasiia WHITT, MS RD LD [phone] cell"
--- NOTE | 2020-10-26 15:13 | Progress Note ---
Subjective Date Seen by a Provider: Oct 26, 2020 Time Seen by a Provider: 15:00 Subjective/Events-last exam doing ok. wound vac changed today with good granulation tissue. does have some erythematous skin along inferior margin however no necrosis/bullae/crepitance. Focused Exam Time of Focused Exam: 14:11 Objective Exam Vital Signs Date Time Temp Pulse Resp B/P (MAP) Pulse Ox O2 Delivery O2 Flow Rate FiO2 10/26/20 08:00 36.1 92 20 156/86 (109) 98 Room Air 10/26/20 08:00 Room Air 10/25/20 23:27 36.4 88 20 135/70 (91) 96 Room Air 10/25/20 19:30 Room Air 10/25/20 16:16 36.7 84 17 174/94 (120) 97 Room Air I & O 10/26/20 07:00 Intake Total 1380 ml Output Total 2900 ml Balance -1520 ml Capillary Refill : Less Than 3 SecondsLess Than 3 Seconds General Appearance: No Apparent Distress HEENT: PERRL/EOMI Neck: Full Range of Motion Respiratory: Chest Non Tender, Rhonci, Wheezing Cardiovascular: Regular Rate, Rhythm Gastrointestinal: normal bowel sounds, non tender, soft Extremity: Other (vac in place, mild erythema inferior margin skin, no signs/sx of spreading necrotizing fasciitis. ) Neurologic/Psychiatric: Alert, Oriented x3 Skin: Normal Color Lymphatic: No Adenopathy Results Lab Laboratory Tests 10/25/20 15:54: Glucometer 97 10/25/20 20:16: Glucometer 206H 10/26/20 05:59: White Blood Count 9.5, Red Blood Count 3.71L, Hemoglobin 11.8L, Hematocrit 36L, Mean Corpuscular Volume 98, Mean Corpuscular Hemoglobin 32, Mean Corpuscular Hemoglobin Concent 33, Red Cell Distribution Width 11.3, Platelet Count 672H, Mean Platelet Volume 8.6L, Immature Granulocyte % (Auto) 1, Neutrophils (%) (Auto) 66, Lymphocytes (%) (Auto) 23, Monocytes (%) (Auto) 9, Eosinophils (%) (Auto) 1, Basophils (%) (Auto) 0, Neutrophils # (Auto) 6.2, Lymphocytes # (Auto) 2.2, Monocytes # (Auto) 0.9, Eosinophils # (Auto) 0.1, Basophils # (Auto) 0.0, Immature Granulocyte # (Auto) 0.1, Sodium Level 136, Potassium Level 4.6, Chl oride Level 96L, Carbon Dioxide Level 31, Anion Gap 9, Blood Urea Nitrogen 6L, Creatinine 0.74, Estimat Glomerular Filtration Rate > 60, BUN/Creatinine Ratio 8, Glucose Level 103, Calcium Level 9.1, Corrected Calcium 9.9, Total Bilirubin 0.4, Aspartate Amino Transf (AST/SGOT) 35H, Alanine Aminotransferase (ALT/SGPT) 25, Alkaline Phosphatase 79, Total Protein 7.2, Albumin 3.0L 10/26/20 11:28: Glucometer 258H Microbiology 10/22/20 Gram Stain - Final, Complete 10/22/20 Anaerobic Culture - Final, Complete No anaerobes isolated 10/22/20 Surgical Culture - Final, Complete Staphylococcus aureus 10/21/20 MRSA Screen - Final, Complete MRSA not isolated 10/16/20 Blood Culture - Final, Complete No growth Assessment/Plan Assessment/Plan Assess & Plan/Chief Complaint necrotizing fasciitis right posterior lower extremity s/p WLE. wound care to place another vac and change q 72hrs. no new areas of necrosis, mild inferior erythema. continue close surveillance and vac. cont abx. will need to avoid contracture with PT at some point. Clinical Quality Measures AMI/AHF: ASA po Prior to arrival: No DVT/VTE Risk/Contraindication: Risk Factor Score Per Nursin RFS Level Per Nursing on Admit: 4+=Very High SONJA GODWIN MD Oct 26, 2020 15:13
--- NOTE | 2020-10-26 15:14 | NUR ---
DISCHARGE PLANNING: Patient is sitting in bed with right leg on pillow leaning somewhat onto left hip. He is agreeable to a visit to discuss discharge plans. He does not [facility] treatment for his wound. He would like to be discharge to where he is staying with a friend named Neeru and his . He says he would agree to [facility] and be willing to return to [place] for treatment at the [facility] and Home health Care. I do not know the likelihood of compliance for this patient. Will continue to follow and offer assist as able with discharge planning.
[2020-10-26 16:00] VITALS: BP 142/78
[2020-10-26] MEDS: ENOXAPARIN 40 MG/0.4 ML (LOVENOX) SYR SC SCH (20:34)
[2020-10-26 23:57] VITALS: BP 121/63
[2020-10-27] MEDS: HYDROmorphone 2 MG/ML VIAL (DILAUDID) IV PRN ×6 (00:56→21:31)
[2020-10-27] MEDS: CEFEPIME INJECTION 1,000 MG in WATER (STERILE) FOR INJECTION 10 ML IV SCH ×4 (02:43→21:30)
[2020-10-27] MEDS: VANCOMYCIN 1,750 MG/NS 500 ML IVPB IV SCH ×4 (05:10→16:02)
[2020-10-27 05:39] LABS: BASOPHILS % (AUTO) 0 % (0-10); EOSINOPHILS # (AUTO) 0.1 10^3/uL (0.0-0.3); EOSINOPHILS % (AUTO) 1 % (0-10); HEMATOCRIT 36 % (40-54); HEMOGLOBIN 11.9 g/dL (13.3-17.7); LYMPHOCYTES # (AUTO) 2.5 10^3/uL (1.0-4.0); LYMPHOCYTES % (AUTO) 25 % (12-44); MEAN CORPUSCULAR HEMOGLOBIN 32 pg (25-34); MEAN CORPUSCULAR HGB CONC 33 g/dL (32-36); MEAN CORPUSCULAR VOLUME 96 fL (80-99); MEAN PLATELET VOLUME 8.4 fL (9.0-12.2); MONOCYTES # (AUTO) 0.9 10^3/uL (0.0-1.0); MONOCYTES % (AUTO) 9 % (0-12); NEUTROPHILS # (AUTO) 6.3 10^3/uL (1.8-7.8); NEUTROPHILS % (AUTO) 64 % (42-75); PLATELET COUNT 581 10^3/uL (130-400); WHITE BLOOD COUNT 9.9 10^3/uL (4.3-11.0)
[2020-10-27] MEDS: inSUlin ASPART (NovoLOG) 1 UNIT/0.01 ML (CHARGE PER UNIT) SC SCH ×7 (05:59→20:44)
[2020-10-27] MEDS: KCL 8 MEQ (MICRO K) TABLET PO SCH (06:14)
[2020-10-27] MEDS: CLINDAMYCIN 600 MG/50 ML IVPB 50 ML IV SCH ×3 (06:14→21:31)
[2020-10-27 08:00] VITALS: BP 133/98
[2020-10-27] MEDS: NICOTINE 21 MG (NICODERM) PATCH TD SCH ×2 (08:31→08:42)
[2020-10-27] MEDS: SENNA W/DOCUSATE (SENOKOT S) TABLET PO SCH ×2 (08:40→21:31)
[2020-10-27] MEDS: NICOTINE PATCH REMOVAL TP SCH (08:41)
[2020-10-27] MEDS: oxyCODONE/APAP 10/325MG (PERCOCET 10) TABLET PO PRN ×2 (12:24→18:05)
--- NOTE | 2020-10-27 12:30 | NUR ---
certified lactation counselor called, as Wound Vac is alarming. Floor RN found wound vac suction off with black foam reinflating; turned wound vac on, suction working once again. two spots near edge of wound vac drape appear to be pulled at or picked at. patient is on the phone with family, discussing why he has the wound vac. Education re: Necrotizing Fasciits shared with patient and family on phone. Patient expresses disappointment at not being able to see new grandson over [place]. Enc. use of phone calls and possible facetime call between patient and family.
--- NOTE | 2020-10-27 13:04 | Progress Note ---
Subjective Subjective/Events-last exam Resting comfortably. Complained of some chest pain this AM and had stable ECG. Tolerating PO diet. Review of Systems Neurological: Weakness, Incoordination Focused Exam Time of Focused Exam: 14:11 Objective Exam Last Set of Vital Signs Vital Signs Date Time Temp Pulse Resp B/P (MAP) Pulse Ox O2 Delivery O2 Flow Rate FiO2 10/27/20 08:32 36.4 10/27/20 08:00 149 16 133/98 (110) 95 Room Air 10/22/20 12:00 2.00 Capillary Refill : Less Than 3 SecondsLess Than 3 Seconds I&O Intake and Output 10/26/20 23:59 Intake Total 2040 ml Output Total 3750 ml Balance -1710 ml Intake Oral 2040 ml Output Urine Total 3750 ml General: Alert, Oriented X3, No Acute Distress Lungs: Clear to Auscultation, Normal Air Movement Heart: No Murmurs, Other (tachycardic rate) Abdomen: Normal Bowel Sounds, Soft, No Tenderness, No Masses Extremities: Other (Wound vac in place RLE, mild erythema along inferior border) Neuro: Normal Speech Results/Procedures Lab Laboratory Tests 10/26/20 17:02: Glucometer 161H 10/26/20 20:52: Glucometer 238H 10/27/20 05:25: White Blood Count 9.9, Red Blood Count 3.74L, Hemoglobin 11.9L, Hematocrit 36L, Mean Corpuscular Volume 96, Mean Corpuscular Hemoglobin 32, Mean Corpuscular Hemoglobin Concent 33, Red Cell Distribution Width 11.2, Platelet Count 581H, Mean Platelet Volume 8.4L, Immature Granulocyte % (Auto) 1, Neutrophils (%) (Auto) 64, Lymphocytes (%) (Auto) 25, Monocytes (%) (Auto) 9, Eosinophils (%) (Auto) 1, Basophils (%) (Auto) 0, Neutrophils # (Auto) 6.3, Lymphocytes # (Auto) 2.5, Monocytes # (Auto) 0.9, Eosinophils # (Auto) 0.1, Basophils # (Auto) 0.0, Immature Granulocyte # (Auto) 0.1 10/27/20 05:31: Glucometer 91 10/27/20 11:25: Glucometer 163H Microbiology 10/22/20 Gram Stain - Final, Complete 10/22/20 Anaerobic Culture - Final, Complete No anaerobes isolated 10/22/20 Surgical Culture - Final, Complete Staphylococcus aureus 10/21/20 MRSA Screen - Final, Complete MRSA not isolated 10/16/20 Blood Culture - Final, Complete No growth Assessment/Plan Assessment/Plan (1) Necrotizing fasciitis Status: Acute Assessment & Plan: 10/26: Dr Man and wound care managing patient, wound vac in place 10/27: Wound Vac changed yesterday, q 72 hrs, Discussed LTAC with patient and he is not interested, Continue IV antibiotics (2) Uncontrolled insulin dependent diabetes mellitus Status: Chronic Assessment & Plan: 10/26: Will get A1c today 10/27: 11.3, will continue to titrate insulin Clinical Quality Measures AMI/AHF: ASA po Prior to arrival: No DVT/VTE Risk/Contraindication: Risk Factor Score Per Nursin RFS Level Per Nursing on Admit: 4+=Very High ALAINA OLEARY MD Oct 27, 2020 13:04
[2020-10-27 16:18] VITALS: BP 120/75
--- NOTE | 2020-10-27 17:14 | NUR ---
Patient got up on his own to use the BR, cautioned him that he is a fall risk with wound vac and unable to straighten, put weight on Rt. Reminded him to use call light. However he said if he had to wait he would "shit his pants", after almost an hour of sitting on the toilet and being unable to have a bowel movement assisted patient back to bed. Offered stools softeners he refused earlier however continued to refuse to take them.
--- NOTE | 2020-10-27 20:58 | NUR ---
Contacted Dr Hermosillo regarding patients blood sugar 58. holding tonights Levemir 20 units and reducing to 10 units tomorrow 12..20
[2020-10-27] MEDS: ENOXAPARIN 40 MG/0.4 ML (LOVENOX) SYR SC SCH (21:30)
[2020-10-27] MEDS: ZOLPIDEM 5 MG (AMBIEN) TAB PO PRN (21:31)
[2020-10-27] MEDS: LORazepam INJ 2 MG/ML (ATIVAN) VIAL IVP PRN (21:31)
[2020-10-27 23:47] VITALS: BP 140/78
[2020-10-28] MEDS: HYDROmorphone 2 MG/ML VIAL (DILAUDID) IV PRN ×7 (00:10→23:36)
[2020-10-28] MEDS: oxyCODONE/APAP 10/325MG (PERCOCET 10) TABLET PO PRN ×4 (00:10→23:36)
[2020-10-28] MEDS: CEFEPIME INJECTION 1,000 MG in WATER (STERILE) FOR INJECTION 10 ML IV SCH ×4 (03:24→19:54)
[2020-10-28] MEDS: LORazepam INJ 2 MG/ML (ATIVAN) VIAL IVP PRN ×2 (03:32→20:47)
[2020-10-28] MEDS: VANCOMYCIN 1,750 MG/NS 500 ML IVPB IV SCH ×2 (05:09)
[2020-10-28 06:18] LABS: BASOPHILS # (AUTO) 0.1 10^3/uL (0.0-0.1); BASOPHILS % (AUTO) 1 % (0-10); EOSINOPHILS # (AUTO) 0.1 10^3/uL (0.0-0.3); EOSINOPHILS % (AUTO) 2 % (0-10); HEMATOCRIT 35 % (40-54); HEMOGLOBIN 11.3 g/dL (13.3-17.7); LYMPHOCYTES # (AUTO) 2.9 10^3/uL (1.0-4.0); LYMPHOCYTES % (AUTO) 31 % (12-44); MEAN CORPUSCULAR HEMOGLOBIN 32 pg (25-34); MEAN CORPUSCULAR HGB CONC 33 g/dL (32-36); MEAN CORPUSCULAR VOLUME 96 fL (80-99); MEAN PLATELET VOLUME 8.5 fL (9.0-12.2); MONOCYTES # (AUTO) 0.7 10^3/uL (0.0-1.0); MONOCYTES % (AUTO) 7 % (0-12); NEUTROPHILS # (AUTO) 5.5 10^3/uL (1.8-7.8); NEUTROPHILS % (AUTO) 60 % (42-75); PLATELET COUNT 583 10^3/uL (130-400); WHITE BLOOD COUNT 9.2 10^3/uL (4.3-11.0)
[2020-10-28 06:21] LABS: CHLORIDE 96 MMOL/L (98-107); POTASSIUM 4.7 MMOL/L (3.6-5.0); SODIUM 133 MMOL/L (135-145)
[2020-10-28 06:22] LABS: CALCIUM 8.8 MG/DL (8.5-10.1); GLUCOSE 194 MG/DL (70-105)
[2020-10-28 06:24] LABS: CARBON DIOXIDE 25 MMOL/L (21-32)
[2020-10-28] MEDS: inSUlin ASPART (NovoLOG) 1 UNIT/0.01 ML (CHARGE PER UNIT) SC SCH ×8 (06:24→21:44)
[2020-10-28 06:26] LABS: CREATININE SERUM 0.69 MG/DL (0.60-1.30); GFR ESTIMATED > 60
[2020-10-28 06:27] LABS: BUN/CREATININE RATIO 17
[2020-10-28] MEDS: KCL 8 MEQ (MICRO K) TABLET PO SCH (06:29)
[2020-10-28] MEDS: CLINDAMYCIN 600 MG/50 ML IVPB 50 ML IV SCH ×2 (06:30→06:40)
[2020-10-28 08:00] VITALS: BP 149/89
[2020-10-28] MEDS: SENNA W/DOCUSATE (SENOKOT S) TABLET PO SCH ×2 (08:14→19:54)
[2020-10-28] MEDS: NICOTINE 21 MG (NICODERM) PATCH TD SCH (08:16)
[2020-10-28] MEDS: NICOTINE PATCH REMOVAL TP SCH (08:16)
[2020-10-28 16:26] VITALS: BP 176/80
--- NOTE | 2020-10-28 16:49 | Progress Note ---
Subjective Subjective/Events-last exam Patient had episode of hypoglycemia last night. Decreased appetite. Review of Systems Pulmonary: No Dyspnea, No Cough Cardiovascular: No: Chest Pain, Palpitations Gastrointestinal: No: Nausea, Vomiting, Abdominal Pain Neurological: Weakness, Incoordination Focused Exam Time of Focused Exam: 14:11 Objective Exam Last Set of Vital Signs Vital Signs Date Time Temp Pulse Resp B/P (MAP) Pulse Ox O2 Delivery O2 Flow Rate FiO2 10/28/20 16:26 36.0 92 20 176/80 (112) 98 Room Air 10/27/20 08:00 2.00 Capillary Refill : Less Than 3 SecondsLess Than 3 Seconds I&O Intake and Output 10/28/20 00:00 Intake Total 2717.5 ml Output Total 4100 ml Balance -1382.5 ml Intake Oral 2140 ml IV Total 577.5 ml Output Urine Total 4100 ml General: Alert, No Acute Distress Lungs: Clear to Auscultation, Normal Air Movement Heart: Regular Rate, No Murmurs Abdomen: Normal Bowel Sounds, Soft, No Tenderness Extremities: Other (RLE wound vac in place with good suction) Results/Procedures Lab Laboratory Tests 10/27/20 20:22: Glucometer 56*L 10/28/20 05:43: White Blood Count 9.2, Red Blood Count 3.59L, Hemoglobin 11.3L, Hematocrit 35L, Mean Corpuscular Volume 96, Mean Corpuscular Hemoglobin 32, Mean Corpuscular Hemoglobin Concent 33, Red Cell Distribution Width 11.4, Platelet Count 583H, Mean Platelet Volume 8.5L, Immature Granulocyte % (Auto) 1, Neutrophils (%) (Auto) 60, Lymphocytes (%) (Auto) 31, Monocytes (%) (Auto) 7, Eosinophils (%) (Auto) 2, Basophils (%) (Auto) 1, Neutrophils # (Auto) 5.5, Lymphocytes # (Auto) 2.9, Monocytes # (Auto) 0.7, Eosinophils # (Auto) 0.1, Basophils # (Auto) 0.1, Immature Granulocyte # (Auto) 0.1, Sodium Level 133L, Potassium Level 4.7, Chloride Level 96L, Carbon Dioxide Level 25, Anion Gap 12, Blood Urea Nitrogen 12, Creatinine 0.69, Estimat Glomerular Filtration Rate > 60, BUN/Creatinine Ratio 17, Glucose Level 194H, Calcium Level 8.8 10/28/20 11:05: Glucometer 108 10/28/20 15:40: Glucometer 193H Microbiology 10/22/20 Gram Stain - Final, Complete 10/22/20 Anaerobic Culture - Final, Complete No anaerobes isolated 10/22/20 Surgical Culture - Final, Complete Staphylococcus aureus 10/21/20 MRSA Screen - Final, Complete MRSA not isolated 10/16/20 Blood Culture - Final, Complete No growth Assessment/Plan Assessment/Plan (1) Necrotizing fasciitis Status: Acute Assessment & Plan: 10/26: Dr Man and wound care managing patient, wound vac in place 10/27: Wound Vac changed yesterday, q 72 hrs, Discussed LTAC with patient and he is not interested, Continue IV antibiotics 10/28: Wound Vac and IV antibiotics, patient declining LTAC (2) Uncontrolled insulin dependent diabetes mellitus Status: Chronic Assessment & Plan: 10/26: Will get A1c today 10/27: 11.3, will continue to titrate insulin Clinical Quality Measures AMI/AHF: ASA po Prior to arrival: No DVT/VTE Risk/Contraindication: Risk Factor Score Per Nursin RFS Level Per Nursing on Admit: 4+=Very High ALAINA OLEARY MD Oct 28, 2020 16:49
[2020-10-28] MEDS: ENOXAPARIN 40 MG/0.4 ML (LOVENOX) SYR SC SCH (19:48)
[2020-10-29] VITALS: BP 143/89
[2020-10-29] MEDS: HYDROmorphone 2 MG/ML VIAL (DILAUDID) IV PRN ×4 (03:11→20:21)
[2020-10-29] MEDS: LORazepam INJ 2 MG/ML (ATIVAN) VIAL IVP PRN (03:11)
[2020-10-29] MEDS: CEFEPIME INJECTION 1,000 MG in WATER (STERILE) FOR INJECTION 10 ML IV SCH ×4 (03:11→22:34)
[2020-10-29] MEDS: KCL 8 MEQ (MICRO K) TABLET PO SCH (06:29)
[2020-10-29] MEDS: inSUlin ASPART (NovoLOG) 1 UNIT/0.01 ML (CHARGE PER UNIT) SC SCH ×7 (06:29→22:35)
[2020-10-29 06:57] LABS: HEMOGLOBIN 10.9 g/dL (13.3-17.7); MEAN PLATELET VOLUME 8.4 fL (9.0-12.2); WHITE BLOOD COUNT 9.1 10^3/uL (4.3-11.0)
--- NOTE | 2020-10-29 07:08 | Progress Note - Hospitalist ---
Subjective HPI/CC On Admission Date Seen by Provider: Oct 29, 2020 Time Seen by Provider: 11:00 Patient reports right leg soreness behind the knee for several weeks. Got progressively worse and then he had noted redness swelling traveling up the leg. He denied anterior knee pain or swelling. He underwent venous Doppler evaluati on that reportedly did not reveal any evidence for blood clot. He had been having some night sweats and because of this and weakness he presented to the emergency room where he had evidence for cellulitis with a sending lymphangitis his white count was 32,000 and he was admitted with SIRS secondary to his cellulitis. He has a history of type 2 diabetes for which he had taken insulin in the past. He reports he is not taking any therapy for diabetes with a history of recent incarceration. He has had no form of diabetic monitoring. He reports no previous history of skin infection or bone infection. He is not aware of any kidney problems vision is somewhat poor bilaterally and he reports numbness to the level of his ankles bilaterally. Subjective/Events-last exam Patient lethargic on pain meds Abx maintained Wound vac tolerated Review of Systems Musculoskeletal: leg pain Focused Exam Time of Focused Exam: 14:11 Objective Exam Vital Signs Vital Signs Date Time Temp Pulse Resp B/P (MAP) Pulse Ox O2 Delivery O2 Flow Rate FiO2 10/30/20 00:00 36.0 93 20 121/67 (85) 98 Room Air 10/27/20 08:00 2.00 Capillary Refill : Less Than 3 SecondsLess Than 3 Seconds General Appearance: No Apparent Distress, WD/WN, Chronically ill Results/Procedures Lab Laboratory Tests 10/29/20 06:45 Patient resulted labs reviewed. Assessment/Plan Assessment and Plan Assess & Plan/Chief Complaint Assessment: Right lower extremity cellulitis DM OOC Plan: IV abx Pain meds 10/20/20: Dr Bonilla consultation appreciated Lovenox maintained Vanc and Cefepime 10/21/20: Consult Dr Man for I&D since he cursed Dr Bonilla out Very difficult situation with such aggressive behavior IV abx Monitor labs 10/22/20: s/p I&D Dr Man revealing necrotizing fascitis 10/23/20: Very angry and aggressive Reapply wound vac 10/24/20: Abx wound vac Verbally abusive 10/25/20: Refuses laxatives High risk for impaction and narcotic bowel and obstruction 10/29/20: Monitor labs Abx Clinical Quality Measures AMI/AHF: ASA po Prior to arrival: No DVT/VTE Risk/Contraindication: Risk Factor Score Per Nursin RFS Level Per Nursing on Admit: 4+=Very High LORNA FARMER DO Oct 29, 2020 07:08
[2020-10-29 07:17] LABS: ALANINE AMINOTRANSFERASE 23 U/L (0-55); ALBUMIN 3.1 GM/DL (3.2-4.5); ALKALINE PHOSPHATASE 71 U/L (40-136); BILIRUBIN,TOTAL 0.3 MG/DL (0.1-1.0); BUN/CREATININE RATIO 19; CARBON DIOXIDE 30 MMOL/L (21-32); CHLORIDE 96 MMOL/L (98-107); CREATININE SERUM 0.74 MG/DL (0.60-1.30); GFR ESTIMATED > 60; GLUCOSE 148 MG/DL (70-105); POTASSIUM 4.5 MMOL/L (3.6-5.0); SODIUM 134 MMOL/L (135-145); TOTAL PROTEIN 7.1 GM/DL (6.4-8.2)
[2020-10-29 07:42] VITALS: BP 124/85
[2020-10-29] MEDS: SENNA W/DOCUSATE (SENOKOT S) TABLET PO SCH ×2 (08:42→22:33)
[2020-10-29] MEDS: NICOTINE PATCH REMOVAL TP SCH (08:43)
[2020-10-29] MEDS: NICOTINE 21 MG (NICODERM) PATCH TD SCH (08:43)
--- NOTE | 2020-10-29 09:27 | Progress Note - Surgery ---
Subjective Time Seen by a Provider: 09:02 Subjective/Events-last exam Pt seen and examined, no new complaints. Wound VAC was changed yesterday. Review of Systems General: No Chills, No Night Sweats Pulmonary: No Dyspnea, No Cough Cardiovascular: No: Chest Pain, Palpitations Gastrointestinal: No: Nausea, Vomiting, Abdominal Pain Focused Exam Time of Focused Exam: 14:11 Objective Exam Vital Signs Date Time Temp Pulse Resp B/P (MAP) Pulse Ox O2 Delivery O2 Flow Rate FiO2 10/29/20 07:42 37.0 86 18 124/85 (98) 96 Room Air 10/29/20 00:00 36.8 68 18 143/89 (107) 98 Room Air 10/28/20 19:50 Room Air 10/28/20 16:26 36.0 92 20 176/80 (112) 98 Room Air I & O 10/29/20 07:00 Intake Total 2140 ml Output Total 3300 ml Balance -1160 ml Capillary Refill : Less Than 3 SecondsLess Than 3 Seconds General Appearance: No Apparent Distress HEENT: PERRL/EOMI Neck: Full Range of Motion Respiratory: Chest Non Tender, Lungs Clear, Normal Breath Sounds, No Accessory Muscle Use, No Respiratory Distress, Rhonci, Wheezing Cardiovascular: Regular Rate, Rhythm, No Murmur Peripheral Pulses: 2+ Radial Pulses (R), 2+ Radial Pulses (L) Gastrointestinal: normal bowel sounds, non tender, soft, no organomegaly Extremity: Other (vac in place, mild erythema inferior margin skin, no signs/sx of spreading necrotizing fasciitis. ) Neurologic/Psychiatric: Alert, Oriented x3 Skin: Normal Color Results Lab Laboratory Tests 10/28/20 11:05: Glucometer 108 10/28/20 15:40: Glucometer 193H 10/28/20 19:44: Glucometer 229H 10/29/20 05:18: Glucometer 128H 10/29/20 06:45: White Blood Count 9.1, Red Blood Count 3.42L, Hemoglobin 10.9L, Hematocrit 33L, Mean Corpuscular Volume 96, Mean Corpuscular Hemoglobin 32, Mean Corpuscular Hemoglobin Concent 33, Red Cell Distribution Width 11.4, Platelet Count 594H, Mean Platelet Volume 8.4L, Sodium Level 134L, Potassium Level 4.5, Chloride Level 96L, Carbon Dioxide Level 30, Anion Gap 8, Blood Urea Nitrogen 14, Creatinine 0.74, Estimat Glomerular Filtration Rate > 60, BUN/Creatinine Ratio 19, Glucose Level 148H, Calcium Level 9.0, Corrected Calcium 9.7, Total Bilirubin 0.3, Aspartate Amino Transf (AST/SGOT) 35H, Alanine Aminotransferase (ALT/SGPT) 23, Alkaline Phosphatase 71, Total Protein 7.1, Albumin 3.1L Microbiology 10/22/20 Gram Stain - Final, Complete 10/22/20 Anaerobic Culture - Final, Complete No anaerobes isolated 10/22/20 Surgical Culture - Final, Complete Staphylococcus aureus 10/21/20 MRSA Screen - Final, Complete MRSA not isolated 10/16/20 Blood Culture - Final, Complete No growth Assessment/Plan Assessment/Plan Assessment/Plan Necrotizing fasciitis - right posterior lower extremity s/p WLE. plan wound care vac and change q 72hrs. no new areas of necrosis, mild inferior erythema. continue close surveillance and vac. cont abx. will need to avoid contracture with PT at some point. Clinical Quality Measures AMI/AHF: ASA po Prior to arrival: No DVT/VTE Risk/Contraindication: Risk Factor Score Per Nursin RFS Level Per Nursing on Admit: 4+=Very High SHENG CAROLINA DO Oct 29, 2020 09:27
[2020-10-29] MEDS: oxyCODONE/APAP 10/325MG (PERCOCET 10) TABLET PO PRN ×3 (10:20→22:33)
[2020-10-29] MEDS: ENOXAPARIN 40 MG/0.4 ML (LOVENOX) SYR SC SCH ×3 (10:20→23:45)
[2020-10-29 16:14] VITALS: BP 111/68
[2020-10-29] MEDS: ONDANSETRON 4 MG/2 ML (SDV) Z0FRAN IVP PRN (22:37)
[2020-10-30] VITALS: BP 121/67
[2020-10-30] MEDS: HYDROmorphone 2 MG/ML VIAL (DILAUDID) IV PRN ×6 (00:15→21:47)
[2020-10-30] MEDS: CEFEPIME INJECTION 1,000 MG in WATER (STERILE) FOR INJECTION 10 ML IV SCH ×4 (05:07→21:28)
[2020-10-30] MEDS: oxyCODONE/APAP 10/325MG (PERCOCET 10) TABLET PO PRN ×3 (05:10→18:45)
[2020-10-30] MEDS: LORazepam INJ 2 MG/ML (ATIVAN) VIAL IVP PRN ×3 (05:24→18:45)
--- NOTE | 2020-10-30 05:30 | NUR ---
PT NOTIFIED THIS NURSE THAT HIS WOUND VAC SUCTION TUBE WAS PULLED OUT, THIS NURSE ATTEMPTED TO SEAL THE TUBE WITH DRESSING, BUT COULD NOT MAINTAIN A SEAL. WOUND VA REMOVED AND A WET TO DRY DRESSING WAS DONE PER ORDER. DR CAROLINA NOTIFIED OF THIS EVENT
[2020-10-30 07:10] VITALS: BP 107/78
[2020-10-30] MEDS: inSUlin ASPART (NovoLOG) 1 UNIT/0.01 ML (CHARGE PER UNIT) SC SCH ×7 (07:49→21:16)
[2020-10-30] MEDS: SENNA W/DOCUSATE (SENOKOT S) TABLET PO SCH ×2 (08:09→21:28)
[2020-10-30] MEDS: NICOTINE 21 MG (NICODERM) PATCH TD SCH ×2 (08:10→08:16)
[2020-10-30] MEDS: NICOTINE PATCH REMOVAL TP SCH (08:10)
[2020-10-30] MEDS: KCL 8 MEQ (MICRO K) TABLET PO SCH (08:10)
--- NOTE | 2020-10-30 11:36 | Progress Note - Hospitalist ---
Subjective HPI/CC On Admission Date Seen by Provider: Oct 30, 2020 Time Seen by Provider: 11:00 Patient reports right leg soreness behind the knee for several weeks. Got progressively worse and then he had noted redness swelling traveling up the leg. He denied anterior knee pain or swelling. He underwent venous Doppler evaluation that reportedly did not reveal any evidence for blood clot. He had been having some night sweats and because of this and weakness he presented to the emergency room where he had evidence for cellulitis with a sending lymphangitis his white count was 32,000 and he was admitted with SIRS secondary to his cellulitis. He has a history of type 2 diabetes for which he had taken insulin in the past. He reports he is not taking any therapy for diabetes with a history of recent incarceration. He has had no form of diabetic monitoring. He reports no previous history of skin infection or bone infection. He is not aware of any kidney problems vision is somewhat poor bilaterally and he reports numbness to the level of his ankles bilaterally. Subjective/Events-last exam Patient doing well Wants to go home tomorrow Took off wound vac Will try to confer with Dr Marquez regarding abx and wound care Review of Systems Musculoskeletal: leg pain Focused Exam Time of Focused Exam: 14:11 Objective Exam Vital Signs Vital Signs Date Time Temp Pulse Resp B/P (MAP) Pulse Ox O2 Delivery O2 Flow Rate FiO2 10/30/20 16:10 36.8 94 16 125/82 (96) 96 Room Air 10/27/20 08:00 2.00 Capillary Refill : Less Than 3 SecondsLess Than 3 Seconds General Appearance: No Apparent Distress, WD/WN, Chronically ill Results/Procedures Lab Patient resulted labs reviewed. Assessment/Plan Assessment and Plan Assess & Plan/Chief Complaint Assessment: Right lower extremity cellulitis DM OOC Plan: IV abx Pain meds 10/20/20: Dr Bonilla consultation appreciated Lovenox maintained Vanc and Cefepime 10/21/20: Consult Dr Man for I&D since he cursed Dr Bonilla out Very difficult situation with such aggressive behavior IV abx Monitor labs 10/22/20: s/p I&D Dr Man revealing necrotizing fascitis 10/23/20: Very angry and aggressive Reapply wound vac 10/24/20: Abx wound vac Verbally abusive 10/25/20: Refuses laxatives High risk for impaction and narcotic bowel and obstruction 10/29/20: Monitor labs Abx 10/30/20: DC planning? Clinical Quality Measures AMI/AHF: ASA po Prior to arrival: No DVT/VTE Risk/Contraindication: Risk Factor Score Per Nursin RFS Level Per Nursing on Admit: 4+=Very High LORNA FARMER DO Oct 30, 2020 11:36
--- NOTE | 2020-10-30 15:03 | Progress Note - Surgery ---
Subjective Time Seen by a Provider: 14:05 Subjective/Events-last exam Pt seen and examined, no new complaints. Nurse reports that they had trouble with wound VAC in the middle of the night and had to take it off. He now has wet to dry dressing. He is tolerating diet and pain controlled. He did ask where he was. Review of Systems General: No Chills, No Night Sweats Pulmonary: No Dyspnea, No Cough Cardiovascular: No: Chest Pain, Palpitations Gastrointestinal: No: Nausea, Vomiting, Abdominal Pain Focused Exam Time of Focused Exam: 14:11 Objective Exam Vital Signs Date Time Temp Pulse Resp B/P (MAP) Pulse Ox O2 Delivery O2 Flow Rate FiO2 10/30/20 08:00 Room Air 10/30/20 07:10 36.8 146 18 107/78 (88) 96 Room Air 10/30/20 00:00 36.0 93 20 121/67 (85) 98 Room Air 10/29/20 20:20 Room Air 10/29/20 16:14 36.9 87 18 111/68 (82) 97 Room Air I & O 10/30/20 07:00 Intake Total 2120 ml Output Total 1770 ml Balance 350 ml Capillary Refill : Less Than 3 SecondsLess Than 3 Seconds General Appearance: No Apparent Distress, Cachetic HEENT: PERRL/EOMI, Other (poor dentition) Neck: Full Range of Motion Respiratory: Chest Non Tender, Lungs Clear, Normal Breath Sounds, No Accessory Muscle Use, No Respiratory Distress, Rhonci, Wheezing Cardiovascular: Regular Rate, Rhythm, No Murmur Peripheral Pulses: 2+ Radial Pulses (R), 2+ Radial Pulses (L) Gastrointestinal: normal bowel sounds, non tender, soft, no organomegaly Extremity: Other (mild erythema inferior margin skin, no signs/sx of spreading necrotizing fasciitis, some black eschar. ) Neurologic/Psychiatric: Alert Skin: Normal Color Results Lab Laboratory Tests 10/29/20 16:17: Glucometer 197H 10/29/20 21:58: Glucometer 254H 10/30/20 06:05: Glucometer 241H 10/30/20 11:14: Glucometer 102 Microbiology 10/22/20 Gram Stain - Final, Complete 10/22/20 Anaerobic Culture - Final, Complete No anaerobes isolated 10/22/20 Surgical Culture - Final, Complete Staphylococcus aureus 10/21/20 MRSA Screen - Final, Complete MRSA not isolated 10/16/20 Blood Culture - Final, Complete No growth Assessment/Plan Assessment/Plan Assessment/Plan Necrotizing fasciitis - right posterior lower extremity s/p debridement plan wound VAC placement with wound care team tomorrow around noon. continue close surveillance and cont abx. will need to avoid contracture with PT at some point. Clinical Quality Measures AMI/AHF: ASA po Prior to arrival: No DVT/VTE Risk/Contraindication: Risk Factor Score Per Nursin RFS Level Per Nursing on Admit: 4+=Very High SHENG CAROLINA DO Oct 30, 2020 15:03
[2020-10-30 16:10] VITALS: BP 125/82
[2020-10-30] MEDS: ENOXAPARIN 40 MG/0.4 ML (LOVENOX) SYR SC SCH (21:29)
[2020-10-31] VITALS: BP 112/65
[2020-10-31] MEDS: HYDROmorphone 2 MG/ML VIAL (DILAUDID) IV PRN ×5 (00:06→23:34)
[2020-10-31] MEDS: oxyCODONE/APAP 10/325MG (PERCOCET 10) TABLET PO PRN ×3 (02:14→18:37)
[2020-10-31] MEDS: LORazepam INJ 2 MG/ML (ATIVAN) VIAL IVP PRN ×3 (02:15→18:37)
[2020-10-31] MEDS: CEFEPIME INJECTION 1,000 MG in WATER (STERILE) FOR INJECTION 10 ML IV SCH ×4 (03:17→22:22)
[2020-10-31] MEDS: inSUlin ASPART (NovoLOG) 1 UNIT/0.01 ML (CHARGE PER UNIT) SC SCH ×7 (05:33→22:24)
[2020-10-31] MEDS: KCL 8 MEQ (MICRO K) TABLET PO SCH (05:43)
--- NOTE | 2020-10-31 07:19 | Progress Note - Hospitalist ---
Subjective HPI/CC On Admission Date Seen by Provider: Oct 31, 2020 Time Seen by Provider: 12:30 Patient reports right leg soreness behind the knee for several weeks. Got progressively worse and then he had noted redness swelling traveling up the leg. He denied anterior knee pain or swelling. He underwent venous Doppler evaluati on that reportedly did not reveal any evidence for blood clot. He had been having some night sweats and because of this and weakness he presented to the emergency room where he had evidence for cellulitis with a sending lymphangitis his white count was 32,000 and he was admitted with SIRS secondary to his cellulitis. He has a history of type 2 diabetes for which he had taken insulin in the past. He reports he is not taking any therapy for diabetes with a history of recent incarceration. He has had no form of diabetic monitoring. He reports no previous history of skin infection or bone infection. He is not aware of any kidney problems vision is somewhat poor bilaterally and he reports numbness to the level of his ankles bilaterally. Subjective/Events-last exam Cant go home due to continued leg abscess Wound vac now back in place IV abx Review of Systems Musculoskeletal: leg pain Focused Exam Time of Focused Exam: 14:11 Objective Exam Vital Signs Vital Signs Date Time Temp Pulse Resp B/P (MAP) Pulse Ox O2 Delivery O2 Flow Rate FiO2 10/31/20 16:30 36.8 107 18 123/78 (93) 95 Room Air 10/27/20 08:00 2.00 Capillary Refill : Less Than 3 SecondsLess Than 3 Seconds General Appearance: No Apparent Distress, WD/WN, Chronically ill, Thin Respiratory: Chest Non Tender, Lungs Clear, Normal Breath Sounds, No Accessory Muscle Use, No Respiratory Distress Cardiovascular: Regular Rate, Rhythm, No Edema, No Gallop, No JVD, No Murmur, Normal Peripheral Pulses Neurologic/Psychiatric: Alert, Oriented x3, No Motor/Sensory Deficits, Normal Mood/Affect Results/Procedures Lab Laboratory Tests 10/31/20 07:41 Patient resulted labs reviewed. Assessment/Plan Assessment and Plan Assess & Plan/Chief Complaint Assessment: Right lower extremity cellulitis DM OOC Plan: IV abx Pain meds 10/20/20: Dr Bonilla consultation appreciated Lovenox maintained Vanc and Cefepime 10/21/20: Consult Dr Man for I&D since he cursed Dr Bonilla out Very difficult situation with such aggressive behavior IV abx Monitor labs 10/22/20: s/p I&D Dr Man revealing necrotizing fascitis 10/23/20: Very angry and aggressive Reapply wound vac 10/24/20: Abx wound vac Verbally abusive 10/25/20: Refuses laxatives High risk for impaction and narcotic bowel and obstruction 10/29/20: Monitor labs Abx 10/30/20: DC planning? 10/31/20: Wound vac back in place Not ready for DC yet Clinical Quality Measures AMI/AHF: ASA po Prior to arrival: No DVT/VTE Risk/Contraindication: Risk Factor Score Per Nursin RFS Level Per Nursing on Admit: 4+=Very High LORNA FARMER DO Oct 31, 2020 07:19
[2020-10-31] MEDS: NICOTINE PATCH REMOVAL TP SCH (07:49)
[2020-10-31] MEDS: NICOTINE 21 MG (NICODERM) PATCH TD SCH (07:50)
[2020-10-31 08:00] VITALS: BP 127/70
[2020-10-31 08:03] LABS: HEMOGLOBIN 11.1 g/dL (13.3-17.7); MEAN PLATELET VOLUME 8.8 fL (9.0-12.2); WHITE BLOOD COUNT 9.1 10^3/uL (4.3-11.0)
[2020-10-31 08:13] LABS: ALBUMIN 3.3 GM/DL (3.2-4.5); CHLORIDE 94 MMOL/L (98-107); POTASSIUM 4.2 MMOL/L (3.6-5.0); SODIUM 134 MMOL/L (135-145)
[2020-10-31 08:16] LABS: GLUCOSE 125 MG/DL (70-105); TOTAL PROTEIN 7.4 GM/DL (6.4-8.2)
[2020-10-31 08:17] LABS: CARBON DIOXIDE 31 MMOL/L (21-32)
[2020-10-31 08:18] LABS: BILIRUBIN,TOTAL 0.3 MG/DL (0.1-1.0)
[2020-10-31 08:19] LABS: ALKALINE PHOSPHATASE 72 U/L (40-136); CREATININE SERUM 0.71 MG/DL (0.60-1.30); GFR ESTIMATED > 60
[2020-10-31 08:20] LABS: BUN/CREATININE RATIO 24
[2020-10-31 08:22] LABS: ALANINE AMINOTRANSFERASE 25 U/L (0-55)
[2020-10-31] MEDS: SENNA W/DOCUSATE (SENOKOT S) TABLET PO SCH ×2 (08:28→22:22)
--- NOTE | 2020-10-31 10:27 | Progress Note - Surgery ---
Subjective Time Seen by a Provider: 10:22 Subjective/Events-last exam Pt seen and examined, no changes. No new complaints. Review of Systems General: No Chills, No Night Sweats Pulmonary: No Dyspnea, No Cough Cardiovascular: No: Chest Pain, Palpitations Focused Exam Time of Focused Exam: 14:11 Objective Exam Vital Signs Date Time Temp Pulse Resp B/P (MAP) Pulse Ox O2 Delivery O2 Flow Rate FiO2 10/31/20 08:00 35.9 96 18 127/70 (89) 96 Room Air 10/31/20 00:00 36.5 107 18 112/65 (81) 94 Room Air 10/30/20 21:47 Room Air 10/30/20 16:10 36.8 94 16 125/82 (96) 96 Room Air I & O 10/31/20 07:00 Intake Total 1290 ml Output Total 2580 ml Balance -1290 ml Capillary Refill : Less Than 3 SecondsLess Than 3 Seconds General Appearance: No Apparent Distress, WD/WN, Chronically ill HEENT: PERRL/EOMI, Other (poor dentition) Neck: Full Range of Motion Respiratory: Chest Non Tender, Lungs Clear, Normal Breath Sounds, No Accessory Muscle Use, No Respiratory Distress, Rhonci, Wheezing Cardiovascular: Regular Rate, Rhythm, No Murmur Peripheral Pulses: 2+ Radial Pulses (R), 2+ Radial Pulses (L) Gastrointestinal: normal bowel sounds, non tender, soft, no organomegaly Extremity: Other (mild erythema inferior margin skin, no signs/sx of spreading necrotizing fasciitis, some black eschar. ) Neurologic/Psychiatric: Alert Skin: Normal Color Results Lab Laboratory Tests 10/30/20 11:14: Glucometer 102 10/30/20 16:10: Glucometer 205H 10/30/20 21:10: Glucometer 198H 10/31/20 05:31: Glucometer 146H 10/31/20 07:41: White Blood Count 9.1, Red Blood Count 3.50L, Hemoglobin 11.1L, Hematocrit 34L, Mean Corpuscular Volume 97, Mean Corpuscular Hemoglobin 32, Mean Corpuscular H emoglobin Concent 33, Red Cell Distribution Width 11.4, Platelet Count 608H, Mean Platelet Volume 8.8L, Sodium Level 134L, Potassium Level 4.2, Chloride Level 94L, Carbon Dioxide Level 31, Anion Gap 9, Blood Urea Nitrogen 17, Creatinine 0.71, Estimat Glomerular Filtration Rate > 60, BUN/Creatinine Ratio 24, Glucose Level 125H, Calcium Level 9.0, Corrected Calcium 9.6, Total Bilirubin 0.3, Aspartate Amino Transf (AST/SGOT) 31, Alanine Aminotransferase (ALT/SGPT) 25, Alkaline Phosphatase 72, Total Protein 7.4, Albumin 3.3 Microbiology 10/22/20 Gram Stain - Final, Complete 10/22/20 Anaerobic Culture - Final, Complete No anaerobes isolated 10/22/20 Surgical Culture - Final, Complete Staphylococcus aureus 10/21/20 MRSA Screen - Final, Complete MRSA not isolated 10/16/20 Blood Culture - Final, Complete No growth Assessment/Plan Assessment/Plan Assessment/Plan Necrotizing fasciitis - right posterior lower extremity s/p debridement plan wound VAC placement with wound care team today. continue close surveillance and cont abx. will need to avoid contracture with PT at some point. Clinical Quality Measures AMI/AHF: ASA po Prior to arrival: No DVT/VTE Risk/Contraindication: Risk Factor Score Per Nursin RFS Level Per Nursing on Admit: 4+=Very High SHENG CAROLINA DO Oct 31, 2020 10:27
[2020-10-31 16:30] VITALS: BP 123/78
[2020-10-31] MEDS: ENOXAPARIN 40 MG/0.4 ML (LOVENOX) SYR SC SCH (22:23)
[2020-11-01 00:32] VITALS: BP 163/91
[2020-11-01] MEDS: LORazepam INJ 2 MG/ML (ATIVAN) VIAL IVP PRN ×3 (00:44→18:34)
[2020-11-01] MEDS: oxyCODONE/APAP 10/325MG (PERCOCET 10) TABLET PO PRN ×3 (00:44→18:34)
[2020-11-01] MEDS: CEFEPIME INJECTION 1,000 MG in WATER (STERILE) FOR INJECTION 10 ML IV SCH ×4 (04:14→20:29)
[2020-11-01] MEDS: HYDROmorphone 2 MG/ML VIAL (DILAUDID) IV PRN ×3 (04:14→22:28)
[2020-11-01] MEDS: inSUlin ASPART (NovoLOG) 1 UNIT/0.01 ML (CHARGE PER UNIT) SC SCH ×7 (05:45→22:27)
[2020-11-01] MEDS: KCL 8 MEQ (MICRO K) TABLET PO SCH (05:45)
--- NOTE | 2020-11-01 06:30 | Progress Note - Hospitalist ---
Subjective HPI/CC On Admission Date Seen by Provider: Nov 01, 2020 Time Seen by Provider: 12:30 Patient reports right leg soreness behind the knee for several weeks. Got progressively worse and then he had noted redness swelling traveling up the leg. He denied anterior knee pain or swelling. He underwent venous Doppler evaluation that reportedly did not reveal any evidence for blood clot. He had been having some night sweats and because of this and weakness he presented to the emergency room where he had evidence for cellulitis with a sending lymphangitis his white count was 32,000 and he was admitted with SIRS secondary to his cellulitis. He has a history of type 2 diabetes for which he had taken insulin in the past. He reports he is not taking any therapy for diabetes with a history of recent incarceration. He has had no form of diabetic monitoring. He reports no previous history of skin infection or bone infection. He is not aware of any kidney problems vision is somewhat poor bilaterally and he reports numbness to the level of his ankles bilaterally. Subjective/Events-last exam No issues Still takes wound vac off himself Focused Exam Time of Focused Exam: 14:11 Objective Exam Vital Signs Vital Signs Date Time Temp Pulse Resp B/P (MAP) Pulse Ox O2 Delivery O2 Flow Rate FiO2 11/01/20 15:57 36.8 74 18 141/64 (89) 95 Room Air 10/27/20 08:00 2.00 Capillary Refill : Less Than 3 SecondsLess Than 3 Seconds General Appearance: No Apparent Distress, WD/WN Results/Procedures Lab Patient resulted labs reviewed. Assessment/Plan Assessment and Plan Assess & Plan/Chief Complaint Assessment: Right lower extremity cellulitis DM OOC Plan: IV abx Pain meds 10/20/20: Dr Bonilla consultation appreciated Lovenox maintained Vanc and Cefepime 10/21/20: Consult Dr Man for I&D since he cursed Dr Bonilla out Very difficult situation with such aggressive behavior IV abx Monitor labs 10/22/20: s/p I&D Dr Man revealing necrotizing fascitis 10/23/20: Very angry and aggressive Reapply wound vac 10/24/20: Abx wound vac Verbally abusive 10/25/20: Refuses laxatives High risk for impaction and narcotic bowel and obstruction 10/29/20: Monitor labs Abx 10/30/20: DC planning? 10/31/20: Wound vac back in place Not ready for DC yet 11/01/20: Wound vac Clinical Quality Measures AMI/AHF: ASA po Prior to arrival: No DVT/VTE Risk/Contraindication: Risk Factor Score Per Nursin RFS Level Per Nursing on Admit: 4+=Very High LORNA FARMER DO Nov 01, 2020 06:30
[2020-11-01] MEDS: NICOTINE 21 MG (NICODERM) PATCH TD SCH (07:34)
[2020-11-01] MEDS: NICOTINE PATCH REMOVAL TP SCH (07:34)
[2020-11-01 08:00] VITALS: BP 135/65
[2020-11-01] MEDS: SENNA W/DOCUSATE (SENOKOT S) TABLET PO SCH ×2 (08:38→20:29)
--- NOTE | 2020-11-01 11:00 | Progress Note - Surgery ---
Subjective Time Seen by a Provider: 09:30 Subjective/Events-last exam Pt seen and examined, no changes. Nurse stated he pulled off his wound VAC again last night, but nurse supervisor general able to get seal back on. Review of Systems General: Fatigue Pulmonary: No Dyspnea, No Cough Cardiovascular: No: Chest Pain, Palpitations Gastrointestinal: No: Nausea, Vomiting, Abdominal Pain Musculoskeletal: leg pain Focused Exam Time of Focused Exam: 14:11 Objective Exam Vital Signs Date Time Temp Pulse Resp B/P (MAP) Pulse Ox O2 Delivery O2 Flow Rate FiO2 11/01/20 08:00 35.8 92 16 135/65 (88) 98 Room Air 11/01/20 08:00 Room Air 11/01/20 00:32 36.8 101 20 163/91 (115) 95 Room Air 10/31/20 20:30 Room Air 10/31/20 16:30 36.8 107 18 123/78 (93) 95 Room Air I & O 11/01/20 07:00 Intake Total 3410 ml Output Total 1800 ml Balance 1610 ml Capillary Refill : Less Than 3 SecondsLess Than 3 Seconds General Appearance: No Apparent Distress, Chronically ill, Thin HEENT: PERRL/EOMI, Other (poor dentition) Respiratory: Chest Non Tender, Lungs Clear, Normal Breath Sounds, No Accessory Muscle Use, No Respiratory Distress Cardiovascular: Regular Rate, Rhythm, No Murmur Peripheral Pulses: 2+ Radial Pulses (R), 2+ Radial Pulses (L) Gastrointestinal: normal bowel sounds, non tender, soft, no organomegaly Extremity: Other (mild erythema inferior margin skin, no signs/sx of spreading necrotizing fasciitis, some black eschar. ) Results Lab Laboratory Tests 10/31/20 11:02: Glucometer 139H 10/31/20 16:03: Glucometer 220H 10/31/20 20:51: Glucometer 231H 11/01/20 05:26: Glucometer 227H Microbiology 10/22/20 Gram Stain - Final, Complete 10/22/20 Anaerobic Culture - Final, Complete No anaerobes isolated 10/22/20 Surgical Culture - Final, Complete Staphylococcus aureus 10/21/20 MRSA Screen - Final, Complete MRSA not isolated 10/16/20 Blood Culture - Final, Complete No growth Assessment/Plan Assessment/Plan Assessment/Plan Necrotizing fasciitis - right posterior lower extremity s/p debridement continue wound VAC with wound care to change Apple. continue close surveillance and cont abx. will need to avoid contracture with PT at some point. Clinical Quality Measures AMI/AHF: ASA po Prior to arrival: No DVT/VTE Risk/Contraindication: Risk Factor Score Per Nursin RFS Level Per Nursing on Admit: 4+=Very High SHENG CAROLINA DO Nov 01, 2020 11:00
[2020-11-01 15:57] VITALS: BP 141/64
[2020-11-01] MEDS: ENOXAPARIN 40 MG/0.4 ML (LOVENOX) SYR SC SCH (20:30)
[2020-11-02 00:21] VITALS: BP 125/84
[2020-11-02] MEDS: LORazepam INJ 2 MG/ML (ATIVAN) VIAL IVP PRN ×4 (01:00→22:50)
[2020-11-02] MEDS: oxyCODONE/APAP 10/325MG (PERCOCET 10) TABLET PO PRN ×3 (01:00→16:58)
--- NOTE | 2020-11-02 02:46 | NUR ---
2228-pt called this rn in to his room to inform me that he will be calling the TV station in [place] to let them know that he is receiving "horrible care here" pt stated that he is not getting fed here, pt stated that when he arrived he weighted 265 pounds and now he weighs 156 pounds. this rn informed this pt that at admission his weight was 163 and is currently 166 pounds. pt stated "oh. well I'm still calling them son of a bitches." 0100-pt called this rn in the room stating "I'm going to ." this rn asked this pt to elaborate on this statement. This pt informed this rn that in the psych facilities they have told him to tell people how he feels & he feels like he is going to without social interaction besides with "these fucking nurses" and he needs a snack, without snacks he will . this rn attempted therapeutic communication with this pt, pt told this rn that he "doesn't give a fuck what you say." pt requested a turkey sandwich which I provided to the pt.
[2020-11-02] MEDS: ONDANSETRON 4 MG/2 ML (SDV) Z0FRAN IVP PRN (03:13)
[2020-11-02] MEDS: CEFEPIME INJECTION 1,000 MG in WATER (STERILE) FOR INJECTION 10 ML IV SCH (03:14)
[2020-11-02] MEDS: HYDROmorphone 2 MG/ML VIAL (DILAUDID) IV PRN ×4 (03:14→22:50)
--- NOTE | 2020-11-02 06:14 | Progress Note - Hospitalist ---
Subjective HPI/CC On Admission Date Seen by Provider: Nov 02, 2020 Time Seen by Provider: 09:00 Patient reports right leg soreness behind the knee for several weeks. Got progressively worse and then he had noted redness swelling traveling up the leg. He denied anterior knee pain or swelling. He underwent venous Doppler evaluati on that reportedly did not reveal any evidence for blood clot. He had been having some night sweats and because of this and weakness he presented to the emergency room where he had evidence for cellulitis with a sending lymphangitis his white count was 32,000 and he was admitted with SIRS secondary to his cellulitis. He has a history of type 2 diabetes for which he had taken insulin in the past. He reports he is not taking any therapy for diabetes with a history of recent incarceration. He has had no form of diabetic monitoring. He reports no previous history of skin infection or bone infection. He is not aware of any kidney problems vision is somewhat poor bilaterally and he reports numbness to the level of his ankles bilaterally. Subjective/Events-last exam Pt fell and then wanted to leave against medication advice because a telesitter was placed Pt very noncompliant with wound vac, takes it off himself Review of Systems General: Fatigue Focused Exam Time of Focused Exam: 14:11 Objective Exam Vital Signs Vital Signs Date Time Temp Pulse Resp B/P (MAP) Pulse Ox O2 Delivery O2 Flow Rate FiO2 11/02/20 16:36 36.2 193 16 124/65 (84) 95 Room Air 10/27/20 08:00 2.00 Capillary Refill : Less Than 3 SecondsLess Than 3 Seconds General Appearance: No Apparent Distress, WD/WN, Chronically ill Results/Procedures Lab Laboratory Tests 11/02/20 06:50 Patient resulted labs reviewed. Assessment/Plan Assessment and Plan Assess & Plan/Chief Complaint Assessment: Right lower extremity cellulitis DM OOC Plan: IV abx Pain meds 10/20/20: Dr Bonilla consultation appreciated Lovenox maintained Vanc and Cefepime 10/21/20: Consult Dr Man for I&D since he cursed Dr Bonilla out Very difficult situation with such aggressive behavior IV abx Monitor labs 10/22/20: s/p I&D Dr Man revealing necrotizing fascitis 10/23/20: Very angry and aggressive Reapply wound vac 10/24/20: Abx wound vac Verbally abusive 10/25/20: Refuses laxatives High risk for impaction and narcotic bowel and obstruction 10/29/20: Monitor labs Abx 10/30/20: DC planning? 10/31/20: Wound vac back in place Not ready for DC yet 11/01/20: Wound vac 11/01/20: Difficult situation Clinical Quality Measures AMI/AHF: ASA po Prior to arrival: No DVT/VTE Risk/Contraindication: Risk Factor Score Per Nursin RFS Level Per Nursing on Admit: 4+=Very High LORNA FARMER DO Nov 02, 2020 06:14
[2020-11-02] MEDS: inSUlin ASPART (NovoLOG) 1 UNIT/0.01 ML (CHARGE PER UNIT) SC SCH ×7 (06:36→20:53)
[2020-11-02 06:56] LABS: BASOPHILS # (AUTO) 0.1 10^3/uL (0.0-0.1); BASOPHILS % (AUTO) 1 % (0-10); EOSINOPHILS # (AUTO) 0.2 10^3/uL (0.0-0.3); EOSINOPHILS % (AUTO) 2 % (0-10); HEMATOCRIT 33 % (40-54); LYMPHOCYTES # (AUTO) 2.9 10^3/uL (1.0-4.0); LYMPHOCYTES % (AUTO) 40 % (12-44); MEAN CORPUSCULAR HEMOGLOBIN 32 pg (25-34); MEAN CORPUSCULAR HGB CONC 33 g/dL (32-36); MEAN CORPUSCULAR VOLUME 96 fL (80-99); MEAN PLATELET VOLUME 8.8 fL (9.0-12.2); MONOCYTES # (AUTO) 0.7 10^3/uL (0.0-1.0); MONOCYTES % (AUTO) 10 % (0-12); NEUTROPHILS # (AUTO) 3.4 10^3/uL (1.8-7.8); NEUTROPHILS % (AUTO) 47 % (42-75); PLATELET COUNT 536 10^3/uL (130-400); WHITE BLOOD COUNT 7.3 10^3/uL (4.3-11.0)
[2020-11-02] MEDS: KCL 8 MEQ (MICRO K) TABLET PO SCH (07:13)
[2020-11-02 07:16] LABS: ALANINE AMINOTRANSFERASE 24 U/L (0-55); ALBUMIN 3.4 GM/DL (3.2-4.5); ALKALINE PHOSPHATASE 75 U/L (40-136); BILIRUBIN,TOTAL 0.2 MG/DL (0.1-1.0); BUN/CREATININE RATIO 21; CALCIUM 9.5 MG/DL (8.5-10.1); CARBON DIOXIDE 33 MMOL/L (21-32); CHLORIDE 95 MMOL/L (98-107); CREATININE SERUM 0.78 MG/DL (0.60-1.30); GFR ESTIMATED > 60; GLUCOSE 177 MG/DL (70-105); POTASSIUM 4.4 MMOL/L (3.6-5.0); SODIUM 135 MMOL/L (135-145); TOTAL PROTEIN 7.5 GM/DL (6.4-8.2)
--- NOTE | 2020-11-02 07:42 | NUR ---
0615-this rn was outside of this pt's room charting-bed alarm began going off, this rn entered the room pt was up going in to the bathroom, pt turned around and lost his balance. pt fell on the floor. pt denies any injury. pt refused to allow this rn to check vital signs. 0620-telesitter placed in room-pt was angry yelling at this rn stating "I'm not in fucking skilled nursing. I'm 50 fucking years old and I will do whatever I want." This rn attempted to explain the purpose of the telesitter. pt informed this rn that he will be going AMA and he doesn't "give a fuck about that." this pt also informed this rn that he will go somewhere else and they can "cut off my fucking leg because I don't care" 0627-this rn notified dr. nielson of pt fall & his request to go AMA.-no new orders. 0630-corporate physical security supervisor toro stafford to see pt. 0647-this rn called the telesitter service to inform them of my request for service & the nature of the service requested.
[2020-11-02] MEDS: NICOTINE 21 MG (NICODERM) PATCH TD SCH (07:45)
[2020-11-02] MEDS: NICOTINE PATCH REMOVAL TP SCH (07:45)
[2020-11-02 07:51] VITALS: BP 142/70
[2020-11-02] MEDS: SENNA W/DOCUSATE (SENOKOT S) TABLET PO SCH ×2 (08:53→20:34)
--- NOTE | 2020-11-02 13:43 | NUR ---
"RD ASSESSMENT PMHx: DM; afib; hepatitis; PT INTERACTION: Pt was semi-awake and semi-pleasant during nutrition follow-up. Note pt has AMS at times, per chart review. Pt states he has been eating so-so since last assessment. Note avg PO intake 69% x4d, per chart review. Pt states no issues with nausea or vomiting since last assessment. Pt states some issues with constipation and diarrhea since last assessment. Note last BM was 11/01, and pt currently on bowel regimen of senna BID, per chart review. Note presence of wound (R mid-leg), per chart review. ABNORMAL NUTRITION-RELATED LAB VALUES LOW: Cl 95; HIGH: glu 177; Est. kcal needs: 5623-3789 kcal | 25-30 kcal/kg Est. Pro needs: 91-106 g Pro | 1.2-1.4 g Pro/kg PES STATEMENT: Inadequate oral intake (NI-2.1) related to loss of appetite, constipation, and diarrhea, as evidenced by pt interview, chart review, and avg PO intake 69% x4d. Inadequate protein intake (NI-5.6.1) related to increased protein needs as evidenced by presence of wound (R mid-leg). INTERVENTION: Continue with current diet order of CHO 60g/m 0snack diet. Continue with current supplementation order of Glucerna with meals TID, for increased kcal and protein intake. Provides 220 kcal and 10 g Pro per serving. Will continue to follow and reassess as pt needs, intake, and status change. Anastasiia WHITT, MS RD LD [phone] cell"
--- NOTE | 2020-11-02 16:15 | NUR ---
CM/SS attempted to visit with patient for discharge planning. The patient was resting at time of visit. This sw will attempt to visit with him tomorrow. CM/SS attempted to contact Mine the swing bed coordinator for [facility]. No answer, a voice mail was left with call back information. CM/SS calling to find resources in the area for wound care such as outpatient or in home care. Home Health: CM/SS contacted [facility] ([place] The main office is in [place] but they have an office in [place]. They accept Medicaid ([facility]). The worker also reported they work with wound Vac's usually x3 a week. CM/SS follow up.
[2020-11-02 16:36] VITALS: BP 124/65
[2020-11-02] MEDS: ENOXAPARIN 40 MG/0.4 ML (LOVENOX) SYR SC SCH (20:35)
--- NOTE | 2020-11-02 22:54 | NUR ---
NOTIFIED BY TELESITTER OF PT SITTING ON SIDE OF THE BED AND POSSIBLY ATTEMPTING TO GET UP. PT EDUCATED ON NEED TO USE CALL LIGHT AND REMAIN IN BED. PT ACTING UNCOOPERATIVE AT THIS TIME.
[2020-11-03] VITALS: BP 119/80
[2020-11-03] MEDS: LORazepam INJ 2 MG/ML (ATIVAN) VIAL IVP PRN (04:22)
[2020-11-03] MEDS: HYDROmorphone 2 MG/ML VIAL (DILAUDID) IV PRN ×7 (04:23→22:37)
[2020-11-03 04:24] LABS: BASOPHILS % (AUTO) 1 % (0-10); EOSINOPHILS # (AUTO) 0.2 10^3/uL (0.0-0.3); EOSINOPHILS % (AUTO) 2 % (0-10); HEMATOCRIT 35 % (40-54); HEMOGLOBIN 11.4 g/dL (13.3-17.7); LYMPHOCYTES # (AUTO) 3.3 10^3/uL (1.0-4.0); LYMPHOCYTES % (AUTO) 43 % (12-44); MEAN CORPUSCULAR HEMOGLOBIN 31 pg (25-34); MEAN CORPUSCULAR HGB CONC 32 g/dL (32-36); MEAN CORPUSCULAR VOLUME 97 fL (80-99); MEAN PLATELET VOLUME 8.8 fL (9.0-12.2); MONOCYTES # (AUTO) 0.7 10^3/uL (0.0-1.0); MONOCYTES % (AUTO) 9 % (0-12); NEUTROPHILS # (AUTO) 3.4 10^3/uL (1.8-7.8); NEUTROPHILS % (AUTO) 45 % (42-75); PLATELET COUNT 515 10^3/uL (130-400); WHITE BLOOD COUNT 7.6 10^3/uL (4.3-11.0)
[2020-11-03 04:43] LABS: ALANINE AMINOTRANSFERASE 28 U/L (0-55); ALBUMIN 3.4 GM/DL (3.2-4.5); ALKALINE PHOSPHATASE 74 U/L (40-136); BILIRUBIN,TOTAL 0.2 MG/DL (0.1-1.0); BUN/CREATININE RATIO 21; CALCIUM 9.5 MG/DL (8.5-10.1); CARBON DIOXIDE 35 MMOL/L (21-32); CHLORIDE 95 MMOL/L (98-107); CREATININE SERUM 0.73 MG/DL (0.60-1.30); GFR ESTIMATED > 60; GLUCOSE 110 MG/DL (70-105); POTASSIUM 4.3 MMOL/L (3.6-5.0); SODIUM 137 MMOL/L (135-145); TOTAL PROTEIN 7.6 GM/DL (6.4-8.2)
[2020-11-03] MEDS: inSUlin ASPART (NovoLOG) 1 UNIT/0.01 ML (CHARGE PER UNIT) SC SCH ×7 (04:48→20:52)
--- NOTE | 2020-11-03 05:50 | Progress Note - Hospitalist ---
Subjective HPI/CC On Admission Date Seen by Provider: Nov 03, 2020 Time Seen by Provider: 10:00 Patient reports right leg soreness behind the knee for several weeks. Got progressively worse and then he had noted redness swelling traveling up the leg. He denied anterior knee pain or swelling. He underwent venous Doppler evaluati on that reportedly did not reveal any evidence for blood clot. He had been having some night sweats and because of this and weakness he presented to the emergency room where he had evidence for cellulitis with a sending lymphangitis his white count was 32,000 and he was admitted with SIRS secondary to his cellulitis. He has a history of type 2 diabetes for which he had taken insulin in the past. He reports he is not taking any therapy for diabetes with a history of recent incarceration. He has had no form of diabetic monitoring. He reports no previous history of skin infection or bone infection. He is not aware of any kidney problems vision is somewhat poor bilaterally and he reports numbness to the level of his ankles bilaterally. Subjective/Events-last exam Labs are okay Social work meeting with the patient Very difficult to manage Review of Systems Musculoskeletal: leg pain Focused Exam Time of Focused Exam: 14:11 Objective Exam Vital Signs Vital Signs Date Time Temp Pulse Resp B/P (MAP) Pulse Ox O2 Delivery O2 Flow Rate FiO2 11/03/20 16:00 36.2 95 18 128/66 (86) 96 Room Air Capillary Refill : Less Than 3 SecondsLess Than 3 Seconds General Appearance: No Apparent Distress, Chronically ill Results/Procedures Lab Laboratory Tests 11/03/20 04:12 Patient resulted labs reviewed. Assessment/Plan Assessment and Plan Assess & Plan/Chief Complaint Assessment: Right lower extremity cellulitis DM OOC Plan: IV abx Pain meds 10/20/20: Dr Bonilla consultation appreciated Lovenox maintained Vanc and Cefepime 10/21/20: Consult Dr Man for I&D since he cursed Dr Bonilla out Very difficult situation with such aggressive behavior IV abx Monitor labs 10/22/20: s/p I&D Dr Man revealing necrotizing fascitis 10/23/20: Very angry and aggressive Reapply wound vac 10/24/20: Abx wound vac Verbally abusive 10/25/20: Refuses laxatives High risk for impaction and narcotic bowel and obstruction 10/29/20: Monitor labs Abx 10/30/20: DC planning? 10/31/20: Wound vac back in place Not ready for DC yet 11/01/20: Wound vac 11/01/20: Difficult situation 11/03/20 Diff to manage Clinical Quality Measures AMI/AHF: ASA po Prior to arrival: No DVT/VTE Risk/Contraindication: Risk Factor Score Per Nursin RFS Level Per Nursing on Admit: 4+=Very High LORNA FARMER DO Nov 03, 2020 05:50
[2020-11-03] MEDS: KCL 8 MEQ (MICRO K) TABLET PO SCH (05:52)
[2020-11-03 08:00] VITALS: BP 115/76
[2020-11-03] MEDS: NICOTINE PATCH REMOVAL TP SCH (09:02)
[2020-11-03] MEDS: SENNA W/DOCUSATE (SENOKOT S) TABLET PO SCH ×2 (09:02→20:51)
[2020-11-03] MEDS: NICOTINE 21 MG (NICODERM) PATCH TD SCH (09:02)
--- NOTE | 2020-11-03 13:01 | NUR ---
CM/SS follow up. CM/SS visited with the patient for discharge planning. The patient was sitting at the edge of the bed. He reports that he is doing well today and is feeling a little bit better. The patient was in good spirits and was willing to discuss discharge planning. His mood and behavior were appropriate with this sw. Address: Patient reports that he does not live in [place] he lives at: [address] [place] [address]. He states that he lives with a friend and his significant other. LTAC: Referral sent to [facility] in [place]. Awaiting acceptance/denial. CM/SS discussed a [facility] ([facility]) facility at length with the patient and answered questions regarding care. This sw and the patient went over what an LTAC is, services, and the need for a long-term stay. The patient continued to change the subject and stated he wishes to return home. CM/SS explained the care that is needed for the patient's wound and the limited options for care. He verbalized understanding. CM/SS received verbal permission to send a referral to [facility] in [place] but states he is not yet agreeing to it. The patient states he will think about it. Home Health: The patient would like to return home with home health. However, the wound at this time could not be managed at home. CM/SS discussed with Sil-Wound Care Nurse and Melanie OLSEN. The wound vac is covering a large area and the patient has been non-compliant with it by pulling it off. CM/SS explained to the patient that home health is not currently an option. Hospice: CM/SS discussed going home with Hospice due to the patient's desire to return home and non-compliance. He states that at this time he is "not ready for that" and wishes to continue curative treatment. Supports: The patient reports that he has 2 adult children (son and daughter) and 4 grandchildren. The patient verbalized that he does not have a close relationship with his daughter but he does have a good relationship with his son. He wishes to be home so he can spend time with his granddaughter and be there for New Years. 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 The patient reports he has been to multiple rehabs in the past. The patient does currently smoke cigarettes and would like to go to a facility that will let him smoke. CM/SS will continue to follow. Addendum: 11/03/20 at 1636 by LILIAN MARTINEZ SS Update: [facility] contacted this sw and stated they are declining the patient based on behaviors. CM/SS contacted [facility] in [place] and let a voice mail with Yecenia in admissions. A referral was faxed. Awaiting acceptance/denial.
[2020-11-03] MEDS: oxyCODONE/APAP 10/325MG (PERCOCET 10) TABLET PO PRN ×2 (13:43→20:53)
--- NOTE | 2020-11-03 15:35 | NUR ---
blood sugar 30. patient a/o at this time. Milk, peanut butter and wero crackers and orange juice given at this time. will recheck in 20 minutes. blood sugar rechecked at 1604 and is 62. to give patient more peanut butter and crackers at this time.
[2020-11-03 16:00] VITALS: BP 128/66
--- NOTE | 2020-11-03 17:28 | Progress Note ---
Subjective Date Seen by a Provider: Nov 03, 2020 Time Seen by a Provider: 17:00 Subjective/Events-last exam improving daily. wond viewed today and granulating in well. tolerating diet and no fever/chills. Focused Exam Time of Focused Exam: 14:11 Objective Exam Vital Signs Date Time Temp Pulse Resp B/P (MAP) Pulse Ox O2 Delivery O2 Flow Rate FiO2 11/03/20 16:00 36.2 95 18 128/66 (86) 96 Room Air 11/03/20 08:00 Room Air 11/03/20 08:00 36.0 87 20 115/76 (89) 97 Room Air 11/03/20 00:00 36.5 88 17 119/80 (93) 96 Room Air 11/02/20 20:30 Room Air I & O 11/03/20 07:00 Intake Total 1420 ml Output Total 2950 ml Balance -1530 ml Capillary Refill : Less Than 3 SecondsLess Than 3 Seconds General Appearance: No Apparent Distress HEENT: PERRL/EOMI Neck: Full Range of Motion Respiratory: Rhonci, Wheezing Cardiovascular: Regular Rate, Rhythm Gastrointestinal: normal bowel sounds, non tender, soft Extremity: Other (wound vac in place. no new areas erythema/necrosis) Neurologic/Psychiatric: Alert, Oriented x3 Skin: Normal Color Lymphatic: No Adenopathy Results Lab Laboratory Tests 11/02/20 20:48: Glucometer 165H 11/03/20 04:12: White Blood Count 7.6, Red Blood Count 3.64L, Hemoglobin 11.4L, Hematocrit 35L, Mean Corpuscular Volume 97, Mean Corpuscular Hemoglobin 31, Mean Corpuscular Hemoglobin Concent 32, Red Cell Distribution Width 11.3, Platelet Count 515H, Mean Platelet Volume 8.8L, Immature Granulocyte % (Auto) 0, Neutrophils (%) (Auto) 45, Lymphocytes (%) (Auto) 43, Monocytes (%) (Auto) 9, Eosinophils (%) (Auto) 2, Basophils (%) (Auto) 1, Neutrophils # (Auto) 3.4, Lymphocytes # (Auto) 3.3, Monocytes # (Auto) 0.7, Eosinophils # (Auto) 0.2, Basophils # (Auto) 0.0, Immature Granulocyte # (Auto) 0.0, Sodium Level 137, Potassium Level 4.3, Chloride Level 95L, Carbon Dioxide Level 35H, Anion Gap 7, Blood Urea Nitrogen 15, Creatinine 0.73, Estimat Glomerular Filtration Rate > 60, BUN/Creatinine Ratio 21, Glucose Level 110H, Calcium Level 9.5, Corrected Calcium 10.0, Total Bilirubin 0.2, Aspartate Amino Transf (AST/SGOT) 37H, Alanine Aminotransferase (ALT/SGPT) 28, Alkaline Phosphatase 74, Total Protein 7.6, Albumin 3.4 11/03/20 05:14: Glucometer 102 11/03/20 11:05: Glucometer 288H 11/03/20 15:34: Glucometer 30*L 11/03/20 16:09: Glucometer 62L Microbiology 10/22/20 Gram Stain - Final, Complete 10/22/20 Anaerobic Culture - Final, Complete No anaerobes isolated 10/22/20 Surgical Culture - Final, Complete Staphylococcus aureus 10/21/20 MRSA Screen - Final, Complete MRSA not isolated 10/16/20 Blood Culture - Final, Complete No growth Assessment/Plan Assessment/Plan Assess & Plan/Chief Complaint necrotizing fasciitis right posterior lower extremity s/p WLE. wound care to place another vac and change q 72hrs. no new areas of necrosis, mild inferior erythema. continue close surveillance and vac. cont abx. will need to avoid contracture with PT at some point. may also need split thickness skin graft as OP. increase to 2200kcal diet. Clinical Quality Measures AMI/AHF: ASA po Prior to arrival: No DVT/VTE Risk/Contraindication: Risk Factor Score Per Nursin RFS Level Per Nursing on Admit: 4+=Very High SONJA GODWIN MD Nov 03, 2020 17:28
--- NOTE | 2020-11-03 18:37 | NUR ---
upon entering room to give patient pain medication i heard noise and patient had just said hose pulled out of wound with many curse words.
--- NOTE | 2020-11-03 18:43 | NUR ---
THIS RN PHONED CYNTHIA BANEGAS, SOLAR SALES ESTIMATOR TO SEE WHAT COULD BE DONE WITH WOUND VAC. CYNTHIA NIX WOULD COME UP AND CHECK IT OUT.
[2020-11-03] MEDS: ENOXAPARIN 40 MG/0.4 ML (LOVENOX) SYR SC SCH (20:51)
[2020-11-04] VITALS: BP 130/76
[2020-11-04] MEDS: HYDROmorphone 2 MG/ML VIAL (DILAUDID) IV PRN ×5 (00:06→23:01)
[2020-11-04] MEDS: ONDANSETRON 4 MG/2 ML (SDV) Z0FRAN IVP PRN (00:06)
[2020-11-04] MEDS: LORazepam INJ 2 MG/ML (ATIVAN) VIAL IVP PRN (01:30)
[2020-11-04] MEDS: KCL 8 MEQ (MICRO K) TABLET PO SCH (05:27)
[2020-11-04] MEDS: inSUlin ASPART (NovoLOG) 1 UNIT/0.01 ML (CHARGE PER UNIT) SC SCH ×7 (05:29→21:34)
[2020-11-04] MEDS: oxyCODONE/APAP 10/325MG (PERCOCET 10) TABLET PO PRN ×3 (05:49→18:10)
--- NOTE | 2020-11-04 06:17 | Progress Note - Hospitalist ---
Subjective HPI/CC On Admission Date Seen by Provider: Nov 04, 2020 Time Seen by Provider: 10:00 Patient reports right leg soreness behind the knee for several weeks. Got progressively worse and then he had noted redness swelling traveling up the leg. He denied anterior knee pain or swelling. He underwent venous Doppler evaluation that reportedly did not reveal any evidence for blood clot. He had been having some night sweats and because of this and weakness he presented to the emergency room where he had evidence for cellulitis with a sending lymphangitis his white count was 32,000 and he was admitted with SIRS secondary to his cellulitis. He has a history of type 2 diabetes for which he had taken insulin in the past. He reports he is not taking any therapy for diabetes with a history of recent incarceration. He has had no form of diabetic monitoring. He reports no previous history of skin infection or bone infection. He is not aware of any kidney problems vision is somewhat poor bilaterally and he reports numbness to the level of his ankles bilaterally. Subjective/Events-last exam Two long-term care facilities have declined taking him Needs double portions to help him heal Very difficult wound, home care cant maintain it Review of Systems Musculoskeletal: leg pain Focused Exam Time of Focused Exam: 14:11 Objective Exam Vital Signs Vital Signs Date Time Temp Pulse Resp B/P (MAP) Pulse Ox O2 Delivery O2 Flow Rate FiO2 11/05/20 15:32 36.2 87 18 161/88 (112) 98 Room Air Capillary Refill : Less Than 3 SecondsLess Than 3 Seconds General Appearance: No Apparent Distress, WD/WN Results/Procedures Lab Patient resulted labs reviewed. Assessment/Plan Assessment and Plan Assess & Plan/Chief Complaint Assessment: Right lower extremity cellulitis DM OOC Plan: IV abx Pain meds 10/20/20: Dr Bonilla consultation appreciated Lovenox maintained Vanc and Cefepime 10/21/20: Consult Dr Man for I&D since he cursed Dr Bonilla out Very difficult situation with such aggressive behavior IV abx Monitor labs 10/22/20: s/p I&D Dr Man revealing necrotizing fascitis 10/23/20: Very angry and aggressive Reapply wound vac 10/24/20: Abx wound vac Verbally abusive 10/25/20: Refuses laxatives High risk for impaction and narcotic bowel and obstruction 10/29/20: Monitor labs Abx 10/30/20: DC planning? 10/31/20: Wound vac back in place Not ready for DC yet 11/01/20: Wound vac 11/01/20: Difficult situation 11/03/20 Diff to manage 11/04/20: DC planning IV abx Clinical Quality Measures AMI/AHF: ASA po Prior to arrival: No DVT/VTE Risk/Contraindication: Risk Factor Score Per Nursin RFS Level Per Nursing on Admit: 4+=Very High LORNA FARMER DO Nov 04, 2020 06:17
[2020-11-04 08:00] VITALS: BP 140/87
[2020-11-04] MEDS: NICOTINE 21 MG (NICODERM) PATCH TD SCH (08:12)
[2020-11-04] MEDS: SENNA W/DOCUSATE (SENOKOT S) TABLET PO SCH ×2 (08:12→21:33)
[2020-11-04] MEDS: NICOTINE PATCH REMOVAL TP SCH (08:13)
--- NOTE | 2020-11-04 10:55 | NUR ---
DIET CHANGED LAST NIGHT TO 90CHO WITH [address] FARMER GAVE ORDER TO INCREASE PORTIONS. THIS RN SPOKE WITH CONTINUING EDUCATION INSTRUCTOR JOSE AND HE RECOMMENDED SINCE WAS 60CHO YESTERDAY AND CHANGED TO 90CHO TO ADD GLUCERNA TID AT THIS TIME.
--- NOTE | 2020-11-04 11:35 | Progress Note ---
Subjective Date Seen by a Provider: Nov 04, 2020 Time Seen by a Provider: 11:30 Subjective/Events-last exam doing ok. wound vac in place. pain controlled. no fever/chills. Focused Exam Time of Focused Exam: 14:11 Objective Exam Vital Signs Date Time Temp Pulse Resp B/P (MAP) Pulse Ox O2 Delivery O2 Flow Rate FiO2 11/04/20 00:00 36.4 95 16 130/76 (94) 97 Room Air 11/03/20 20:55 Room Air 11/03/20 16:00 36.2 95 18 128/66 (86) 96 Room Air I & O 11/04/20 07:00 Intake Total 2235 ml Output Total 1625 ml Balance 610 ml Capillary Refill : Less Than 3 SecondsLess Than 3 Seconds General Appearance: No Apparent Distress HEENT: PERRL/EOMI Neck: Full Range of Motion Respiratory: Rhonci, Wheezing Cardiovascular: Regular Rate, Rhythm Gastrointestinal: normal bowel sounds, non tender, soft Extremity: Normal Capillary Refill, Other (wound vac in place, no new areas erythema/necrosis) Neurologic/Psychiatric: Alert, Oriented x3 Skin: Normal Color Lymphatic: No Adenopathy Results Lab Laboratory Tests 11/03/20 15:34: Glucometer 30*L 11/03/20 16:09: Glucometer 62L 11/03/20 20:11: Glucometer 339H 11/04/20 04:59: Glucometer 240H 11/04/20 11:24: Glucometer 242H Microbiology 10/22/20 Gram Stain - Final, Complete 10/22/20 Anaerobic Culture - Final, Complete No anaerobes isolated 10/22/20 Surgical Culture - Final, Complete Staphylococcus aureus 10/21/20 MRSA Screen - Final, Complete MRSA not isolated 10/16/20 Blood Culture - Final, Complete No growth Assessment/Plan Assessment/Plan Assess & Plan/Chief Complaint necrotizing fasciitis right posterior lower extremity s/p WLE. wound care to place another vac and change q 72hrs. no new areas of necrosis, mild inferior erythema. continue close surveillance and vac. cont abx. will need to avoid contracture with PT at some point. may also need split thickness skin graft as OP. increase to 2400kcal ADA diet. Clinical Quality Measures AMI/AHF: ASA po Prior to arrival: No DVT/VTE Risk/Contraindication: Risk Factor Score Per Nursin RFS Level Per Nursing on Admit: 4+=Very High SONJA GODWIN MD Nov 04, 2020 11:35
--- NOTE | 2020-11-04 13:16 | NUR ---
Spoke to Heidy OLSEN about increasing kcal intake. Note pt BMI is 20.3 (Normal for age, but on the low end of normal). Recommend adding Glucerna TID to increase kcal and protein intake. Will continue to follow and reassess as pt needs, intake, and status change. Michelle Colorado, MS RD LD [phone] cell
--- NOTE | 2020-11-04 14:54 | NUR ---
CM/SS follow up. CM/SS received call from [facility] in [place] reporting they are denying him due to the patient requiring a sitter. At this time they are unable to meet his need. CM/SS called and made a referral to [facility] in [place]. They have a wait list of 28 and are trying to take only local referrals. CM/SS contacted [facility] in [place], [place]. They have a wait list of 6 but a referral was sent. CM/SS will continue to follow.
[2020-11-04 16:00] VITALS: BP 144/72
[2020-11-04] MEDS: ENOXAPARIN 40 MG/0.4 ML (LOVENOX) SYR SC SCH (21:34)
[2020-11-05] VITALS: BP 141/73
[2020-11-05] MEDS: ZOLPIDEM 5 MG (AMBIEN) TAB PO PRN (02:05)
--- NOTE | 2020-11-05 02:30 | NUR ---
PT voices c/o wanting to "get out of here," wants to know when he will be going home. This nurse explained to pt that there has not been a d/c date reported and that he is receiving wound vac treatment to heal incision, and that is procedure is a slow process. Pt states that if he does not get to go home tomorrow he is leaving regardless. Will pass on to dayshift nurse.
[2020-11-05] MEDS: oxyCODONE/APAP 10/325MG (PERCOCET 10) TABLET PO PRN (04:56)
[2020-11-05] MEDS: inSUlin ASPART (NovoLOG) 1 UNIT/0.01 ML (CHARGE PER UNIT) SC SCH ×6 (05:52→20:57)
[2020-11-05] MEDS: KCL 8 MEQ (MICRO K) TABLET PO SCH (06:13)
[2020-11-05 07:59] VITALS: BP 130/71
[2020-11-05] MEDS: SENNA W/DOCUSATE (SENOKOT S) TABLET PO SCH ×2 (09:08→19:53)
[2020-11-05] MEDS: NICOTINE 21 MG (NICODERM) PATCH TD SCH (09:09)
[2020-11-05] MEDS: NICOTINE PATCH REMOVAL TP SCH (09:09)
[2020-11-05] MEDS: HYDROmorphone 2 MG/ML VIAL (DILAUDID) IV PRN ×2 (09:14→19:53)
[2020-11-05] MEDS ORDERED: OXYC1TAB12 PO (11:30)
[2020-11-05] MEDS ORDERED: SENN-20 PO (11:30)
[2020-11-05] MEDS ORDERED: [UNRECOGNIZED DRUG - CODE] MC (11:30)
[2020-11-05] MEDS ORDERED: INSU100I29 SQ (11:30)
[2020-11-05] MEDS ORDERED: CEFD300C3 PO (11:35)
--- NOTE | 2020-11-05 11:37 | D/C HH Face to Face Order ---
D/C Face to Face Orders Reconcile Patient Problems Problems Reviewed?: Yes Instructions for Patient Home Health Patient Instructions/FollowUp: [facility] week Physician to follow Patient: [facility] Discharge Diet for Home: ADA Diet Patient Problems: Right leg abscess Patient Data-Allergies,Ht & Wt Patient Allergies: Coded Allergies: Penicillins (Unverified Adverse Reaction, Unknown, 07/22/19) Weight (Pounds): 192 Weight (Ounces): 4.0 Home Health Need/Face to Face Date of Face to Face: Nov 05, 2020 Clinical Findings: Muscle weakness, Unsteady gait I have seen Pt [id number]: Yes Discharged To: Home Diagnosis/Conditions: Right leg abscess Patient is Homebound due to: [place] fall risk due to instabilty, Pain w/ambulation Homebound Status Due to the above stated illness, injury or surgical procedure (medical condition or diagnosis) and associated clinical findings, the patient is homebound because of his/her inability to leave home except with aid of a supportive device and/or person AND leaving the home requires a considerable and taxing effort or is medically contraindicated. Pt req the following assistanc: [facility] Nursing Orders Home Health Services Order: Nursing Services (dressing changes) Home Health Infusion Therapy Line Start Date: Oct 20, 2020 Certify Stmt I certify that this patient is under my care and that I, a nurse practitioner or a physician; a assistant professor of drama working with me, had a face to face encounter that - meets the physician face to face encounter requirements with this patient as dated. LORNA FARMER DO Nov 05, 2020 11:37
--- NOTE | 2020-11-05 11:38 | Discharge Summary ---
Discharge Summary Hospital Course Hospital Course Date of Admission: Oct 16, 2020 at 16:15 Admission Diagnosis : Family Physician/Provider: Kirsten Maurice Aprn Date of Discharge: 11/05/20 Discharge Diagnosis: [ ] Hospital Course: [ ] Labs and Pending Lab Test: Laboratory Tests 11/04/20 15:17: Glucometer 101 11/04/20 20:49: Glucometer 258H 11/05/20 05:48: Glucometer 148H 11/05/20 10:38: Glucometer 234H Microbiology 10/22/20 Gram Stain - Final, Complete 10/22/20 Anaerobic Culture - Final, Complete No anaerobes isolated 10/22/20 Surgical Culture - Final, Complete Staphylococcus aureus 10/21/20 MRSA Screen - Final, Complete MRSA not isolated 10/16/20 Blood Culture - Final, Complete No growth Home Meds Active Cefdinir 300 Mg Capsule 300 Mg PO BID Easy Comfort Pen Needle (Pen Needle, Diabetic) 1 Each Dis.needle Each MC BID Levemir Flextouch (Insulin Detemir) 100 Unit/1 Ml Insuln.pen 10 Unit SQ BID Senna-Time S Tablet (Sennosides/Docusate Sodium) 1 Each Tablet 1 Ea PO BID Percocet 10-325 mg Tablet (Oxycodone HCl/Acetaminophen) 1 Each Tablet 1 Tab PO Q6H PRN Ibuprofen 800 Mg Tablet 800 Mg PO Q8H PRN Cyclobenzaprine HCl 10 Mg Tablet 10 Mg PO Q8H PRN Discharge Instructions Pneumonia Vaccine Order Indica: Yes Discharge Physical Examination Vital Signs Vital Signs Date Time Temp Pulse Resp B/P (MAP) Pulse Ox O2 Delivery O2 Flow Rate FiO2 11/05/20 08:18 Room Air 11/05/20 07:59 36.0 100 20 130/71 (90) 97 Allergies: Coded Allergies: Penicillins (Unverified Adverse Reaction, Unknown, 07/22/19) Discharge Summary Date of Admission Oct 16, 2020 at 16:15 Date of Discharge Discharge Date: Nov 05, 2020 Admission Diagnosis 1. Right lower extremity cellulitis with asending lymphangitis. Reported significant penicillin allergy continue vancomycin IV and Flagyl was initiated in the emergency room as well. 2. Insulin requiring type 2 diabetes mellitus uncontrolled likely cause of #1 we will initiate basal bolus therapy and continue to monitor. Patient cannot tell me even with prompting anything about past insulin therapy dosages forms etc. Discharge Diagnosis Assessment: Right lower extremity cellulitis DM OOC Plan: IV abx Pain meds 10/20/20: Dr Bonilla consultation appreciated Lovenox maintained Vanc and Cefepime 10/21/20: Consult Dr Man for I&D since he cursed Dr Bonilla out Very difficult situation with such aggressive behavior IV abx Monitor labs 10/22/20: s/p I&D Dr Man revealing necrotizing fascitis 10/23/20: Very angry and aggressive Reapply wound vac 10/24/20: Abx wound vac Verbally abusive 10/25/20: Refuses laxatives High risk for impaction and narcotic bowel and obstruction 10/29/20: Monitor labs Abx 10/30/20: DC planning? 10/31/20: Wound vac back in place Not ready for DC yet 11/01/20: Wound vac 11/01/20: Difficult situation 11/03/20 Diff to manage Clinical Quality Measures AMI/AHF: ASA po Prior to arrival: No DVT/VTE Risk/Contraindication: Risk Factor Score Per Nursin RFS Level Per Nursing on Admit: 4+=Very High LORNA FARMER DO Nov 05, 2020 11:38
--- NOTE | 2020-11-05 14:11 | NUR ---
CM/SS finalized discharge plan. Plan: Patient will return home with home health and a home wound vac pending approval for wound vac. Home Health: CM/SS contacted [facility] and made referral. The next date they had available was the . The patient would need to be seen sooner. CM/SS contacted [facility] to make referral. They have agreed to admit patient for wound care and changing wound vac x3 a week. DME: The patient chose [id number] in [place]. CM/SS faxed the script for a FWW to agency. The patient reports he would like to stop by a pick it up. CM/SS called and notified the agency. They are open until 5 p.m. Transportation: CM/SS had the patient contact Neeru Christiansen ([phone]) to discuss transportation for upcoming appointment on Monday with Dr. Arellano. He stated he could transport patient. CM/SS discussed using Medicaid for transportation if needed. The patient verbalized understanding. No further needs.
--- NOTE | 2020-11-05 15:11 | NUR ---
D/W PATIENT FSBS RESULTS AND EDUCATED ON NEW ORDRS. DIABETIC EDUCATION PROVIDED-PATIENT STATES HE HASN'T CHECKED HIS BLOOD SUGAR IN "YEARS" AND DENIES HAVING GLUCOMETER. S.S. NOTIFIED OF PATIENT'S DIABETIC SUPPLY NEED. CONT TO MONITOR.
[2020-11-05 15:32] VITALS: BP 161/88
--- NOTE | 2020-11-05 15:45 | NUR ---
PATIENT HAD BEEN PACING HALLWAYS IN ANTICIPATION OF LEAVING. PATIENT NOTED TO BECOME DIAPHORETIC AND SHOW S/S HYPOGLYCEMIA. JUICE GIVEN AND FSBS CHECKED:46MG/DL. ADDITIONAL JUICE AND SANDWICH PROVIDED. DR FARMER NOTIFIED WITH NEW ORDERS RECEIVED. PATIENT EDUCATED ON S/S OF HYPOGLYCEMIA AND TREATMENT . CONT EDUCATION WITH EACH ENCOUNTER. RECHECK:95MG/DL.
--- NOTE | 2020-11-05 15:55 | NUR ---
SPOKE WITH PATIENT'S FRIEND PER PATIENT REQUEST AND WITH PERMISSION OF PATIENT. PATIENT STATES HE WILL BE STAYING AT HIS FRIEND, АННА'S, HOUSE AND HE WILL BE PROVIDING TRANSPORTATION. D/W АННА SEVERITY OF PATIENT'S ILLNESS AND CONSEQUENCES OF PATIENT NOT HAVING ALL NECESSARY EQUIPMENT (WOUND VAC) AT D/C. АННА VERBALIZED UNDERSTANDING AND SUPPORTED PATIENT'S MEDICAL WELLBEING. АННА INDEPENDENTLY STATES HE WILL NOT BE GIVING PATIENT A RIDE AND PATIENT WILL NOT HAVE A PLACE TO STAY IF PATIENT LEAVES AGAINST MEDICAL ADVICE. АННА IS CONCERNED AND EXPRESSES DESIRE FOR PATIENT TO COMPLETE MEDICAL TREATMENT NECESSARY AND PRESCRIBED. THIS RN EXPRESSED APPRECIATION. ENCOURAGED TO CALL ANYTIME WITH QUESTIONS OR CONCERNS.
--- NOTE | 2020-11-05 16:00 | NUR ---
Patient in bed, shivering. Recent low blood sugar, treated nutritionally. warm blanket given. Explained medical health risks to patient if he decides to leave AMA. Discussed waiting out the weekend, if insurance does not approve home wound vac before Monday. Enc. re-education of diabetes to help continue healthy wound-healing. Diabetic Education materials shared with patient, reinforcement needed.
--- NOTE | 2020-11-05 17:25 | Progress Note - Hospitalist ---
Subjective HPI/CC On Admission Date Seen by Provider: Nov 05, 2020 Time Seen by Provider: 10:00 Patient reports right leg soreness behind the knee for several weeks. Got progressively worse and then he had noted redness swelling traveling up the leg. He denied anterior knee pain or swelling. He underwent venous Doppler evaluation that reportedly did not reveal any evidence for blood clot. He had been having some night sweats and because of this and weakness he presented to the emergency room where he had evidence for cellulitis with a sending lymphangitis his white count was 32,000 and he was admitted with SIRS secondary to his cellulitis. He has a history of type 2 diabetes for which he had taken insulin in the past. He reports he is not taking any therapy for diabetes with a history of recent incarceration. He has had no form of diabetic monitoring. He reports no previous history of skin infection or bone infection. He is not aware of any kidney problems vision is somewhat poor bilaterally and he reports numbness to the level of his ankles bilaterally. Subjective/Events-last exam Had everything set up for discharge but wound VAC was not approved in time by insurance so he will be here until Monday Wanted to leave AGAINST MEDICAL ADVICE but the person he will go to live with will not come to get him if he leaves AGAINST MEDICAL ADVICE All medication was sent to the pharmacy Remain on wound VAC and treatment now Review of Systems Musculoskeletal: leg pain Focused Exam Time of Focused Exam: 14:11 Objective Exam Vital Signs Vital Signs Date Time Temp Pulse Resp B/P (MAP) Pulse Ox O2 Delivery O2 Flow Rate FiO2 11/05/20 15:32 36.2 87 18 161/88 (112) 98 Room Air Capillary Refill : Less Than 3 SecondsLess Than 3 Seconds General Appearance: No Apparent Distress, WD/WN Respiratory: Lungs Clear Results/Procedures Lab Patient resulted labs reviewed. Assessment/Plan Assessment and Plan Assess & Plan/Chief Complaint Assessment: Right lower extremity cellulitis DM OOC Plan: IV abx Pain meds 10/20/20: Dr Bonilla consultation appreciated Lovenox maintained Vanc and Cefepime 10/21/20: Consult Dr Man for I&D since he cursed Dr Bonilla out Very difficult situation with such aggressive behavior IV abx Monitor labs 10/22/20: s/p I&D Dr Man revealing necrotizing fascitis 10/23/20: Very angry and aggressive Reapply wound vac 10/24/20: Abx wound vac Verbally abusive 10/25/20: Refuses laxatives High risk for impaction and narcotic bowel and obstruction 10/29/20: Monitor labs Abx 10/30/20: DC planning? 10/31/20: Wound vac back in place Not ready for DC yet 11/01/20: Wound vac 11/01/20: Difficult situation 11/03/20 Diff to manage 11/04/20: Wound vac 11/05/20: DC planning delayed Await Monday for wound vac approval Clinical Quality Measures AMI/AHF: ASA po Prior to arrival: No DVT/VTE Risk/Contraindication: Risk Factor Score Per Nursin RFS Level Per Nursing on Admit: 4+=Very High LORNA FARMER DO Nov 05, 2020 17:25
[2020-11-05] MEDS: ENOXAPARIN 40 MG/0.4 ML (LOVENOX) SYR SC SCH (20:57)
[2020-11-06 00:10] VITALS: BP 150/79
[2020-11-06] MEDS: HYDROmorphone 2 MG/ML VIAL (DILAUDID) IV PRN (02:28)
[2020-11-06 05:20] LABS: BASOPHILS # (AUTO) 0.1 10^3/uL (0.0-0.1); BASOPHILS % (AUTO) 1 % (0-10); EOSINOPHILS # (AUTO) 0.1 10^3/uL (0.0-0.3); EOSINOPHILS % (AUTO) 1 % (0-10); HEMATOCRIT 35 % (40-54); HEMOGLOBIN 11.4 g/dL (13.3-17.7); LYMPHOCYTES # (AUTO) 3.3 10^3/uL (1.0-4.0); LYMPHOCYTES % (AUTO) 33 % (12-44); MEAN CORPUSCULAR HEMOGLOBIN 31 pg (25-34); MEAN CORPUSCULAR HGB CONC 33 g/dL (32-36); MEAN CORPUSCULAR VOLUME 96 fL (80-99); MEAN PLATELET VOLUME 9.5 fL (9.0-12.2); MONOCYTES # (AUTO) 0.8 10^3/uL (0.0-1.0); MONOCYTES % (AUTO) 8 % (0-12); NEUTROPHILS # (AUTO) 5.7 10^3/uL (1.8-7.8); NEUTROPHILS % (AUTO) 58 % (42-75); PLATELET COUNT 519 10^3/uL (130-400); WHITE BLOOD COUNT 9.9 10^3/uL (4.3-11.0)
[2020-11-06 05:35] LABS: ALBUMIN 3.6 GM/DL (3.2-4.5)
[2020-11-06 05:36] LABS: CHLORIDE 96 MMOL/L (98-107); POTASSIUM 4.4 MMOL/L (3.6-5.0); SODIUM 133 MMOL/L (135-145)
[2020-11-06 05:37] LABS: CALCIUM 9.1 MG/DL (8.5-10.1)
[2020-11-06 05:38] LABS: GLUCOSE 250 MG/DL (70-105); TOTAL PROTEIN 7.5 GM/DL (6.4-8.2)
[2020-11-06 05:39] LABS: CARBON DIOXIDE 27 MMOL/L (21-32)
[2020-11-06 05:40] LABS: BILIRUBIN,TOTAL 0.2 MG/DL (0.1-1.0)
[2020-11-06 05:41] LABS: ALKALINE PHOSPHATASE 70 U/L (40-136)
[2020-11-06 05:42] LABS: CREATININE SERUM 0.76 MG/DL (0.60-1.30); GFR ESTIMATED > 60
[2020-11-06 05:43] LABS: BUN/CREATININE RATIO 22
[2020-11-06 05:45] LABS: ALANINE AMINOTRANSFERASE 36 U/L (0-55)
[2020-11-06] MEDS: KCL 8 MEQ (MICRO K) TABLET PO SCH (06:48)
[2020-11-06] MEDS: inSUlin ASPART (NovoLOG) 1 UNIT/0.01 ML (CHARGE PER UNIT) SC SCH ×7 (06:48→21:08)
[2020-11-06 08:00] VITALS: BP 137/77
[2020-11-06] MEDS: NICOTINE PATCH REMOVAL TP SCH (08:59)
[2020-11-06] MEDS: SENNA W/DOCUSATE (SENOKOT S) TABLET PO SCH ×2 (09:00→21:04)
[2020-11-06] MEDS: NICOTINE 21 MG (NICODERM) PATCH TD SCH (09:00)
--- NOTE | 2020-11-06 12:09 | Progress Note - Hospitalist ---
Subjective HPI/CC On Admission Date Seen by Provider: Nov 06, 2020 Time Seen by Provider: 12:00 Patient reports right leg soreness behind the knee for several weeks. Got progressively worse and then he had noted redness swelling traveling up the leg. He denied anterior knee pain or swelling. He underwent venous Doppler evaluation that reportedly did not reveal any evidence for blood clot. He had been having some night sweats and because of this and weakness he presented to the emergency room where he had evidence for cellulitis with a sending lymphangitis his white count was 32,000 and he was admitted with SIRS secondary to his cellulitis. He has a history of type 2 diabetes for which he had taken insulin in the past. He reports he is not taking any therapy for diabetes with a history of recent incarceration. He has had no form of diabetic monitoring. He reports no previous history of skin infection or bone infection. He is not aware of any kidney problems vision is somewhat poor bilaterally and he reports numbness to the level of his ankles bilaterally. Subjective/Events-last exam Patient has no issues Getting more food and eating well Wound vac in place Review of Systems Musculoskeletal: leg pain Focused Exam Time of Focused Exam: 14:11 Objective Exam Vital Signs Vital Signs Date Time Temp Pulse Resp B/P (MAP) Pulse Ox O2 Delivery O2 Flow Rate FiO2 11/06/20 15:48 36.6 78 18 153/80 (104) 97 Room Air Capillary Refill : Less Than 3 SecondsLess Than 3 Seconds General Appearance: No Apparent Distress, WD/WN, Chronically ill, Thin Respiratory: Chest Non Tender, Lungs Clear, Normal Breath Sounds, No Accessory Muscle Use, No Respiratory Distress Cardiovascular: Regular Rate, Rhythm, No Edema, No Gallop, No JVD, No Murmur, Normal Peripheral Pulses Neurologic/Psychiatric: Alert, Oriented x3, No Motor/Sensory Deficits, Normal Mood/Affect Results/Procedures Lab Laboratory Tests 11/06/20 04:55 Patient resulted labs reviewed. Assessment/Plan Assessment and Plan Assess & Plan/Chief Complaint Assessment: Right lower extremity cellulitis DM OOC Plan: IV abx Pain meds 10/20/20: Dr Bonilla consultation appreciated Lovenox maintained Vanc and Cefepime 10/21/20: Consult Dr Man for I&D since he cursed Dr Bonilla out Very difficult situation with such aggressive behavior IV abx Monitor labs 10/22/20: s/p I&D Dr Man revealing necrotizing fascitis 10/23/20: Very angry and aggressive Reapply wound vac 10/24/20: Abx wound vac Verbally abusive 10/25/20: Refuses laxatives High risk for impaction and narcotic bowel and obstruction 10/29/20: Monitor labs Abx 10/30/20: DC planning? 10/31/20: Wound vac back in place Not ready for DC yet 11/01/20: Wound vac 11/01/20: Difficult situation 11/03/20 Diff to manage 11/04/20: Wound vac 11/05/20: DC planning delayed Await Monday for wound vac approval 11/06/20: Eating better Walking with walker Clinical Quality Measures AMI/AHF: ASA po Prior to arrival: No DVT/VTE Risk/Contraindication: Risk Factor Score Per Nursin RFS Level Per Nursing on Admit: 4+=Very High LORNA FARMER DO Nov 06, 2020 12:09
[2020-11-06] MEDS: oxyCODONE/APAP 10/325MG (PERCOCET 10) TABLET PO PRN ×3 (12:29→23:38)
[2020-11-06 15:48] VITALS: BP 153/80
[2020-11-06] MEDS: ENOXAPARIN 40 MG/0.4 ML (LOVENOX) SYR SC SCH ×2 (21:05→21:07)
[2020-11-06] MEDS: LORazepam INJ 2 MG/ML (ATIVAN) VIAL IVP PRN (23:38)
[2020-11-06 23:50] VITALS: BP 144/86
[2020-11-07] MEDS: HYDROmorphone 2 MG/ML VIAL (DILAUDID) IV PRN (04:34)
[2020-11-07] MEDS: inSUlin ASPART (NovoLOG) 1 UNIT/0.01 ML (CHARGE PER UNIT) SC SCH ×7 (06:22→20:15)
[2020-11-07] MEDS: KCL 8 MEQ (MICRO K) TABLET PO SCH (06:50)
--- NOTE | 2020-11-07 07:20 | Progress Note - Hospitalist ---
Subjective HPI/CC On Admission Date Seen by Provider: Nov 07, 2020 Time Seen by Provider: 10:30 Patient reports right leg soreness behind the knee for several weeks. Got progressively worse and then he had noted redness swelling traveling up the leg. He denied anterior knee pain or swelling. He underwent venous Doppler evaluation that reportedly did not reveal any evidence for blood clot. He had been having some night sweats and because of this and weakness he presented to the emergency room where he had evidence for cellulitis with a sending lymphangitis his white count was 32,000 and he was admitted with SIRS secondary to his cellulitis. He has a history of type 2 diabetes for which he had taken insulin in the past. He reports he is not taking any therapy for diabetes with a history of recent incarceration. He has had no form of diabetic monitoring. He reports no previous history of skin infection or bone infection. He is not aware of any kidney problems vision is somewhat poor bilaterally and he reports numbness to the level of his ankles bilaterally. Subjective/Events-last exam No major issues Wound vac has arrived HH can't start helping him until Monday Review of Systems Musculoskeletal: leg pain Focused Exam Time of Focused Exam: 14:11 Objective Exam Vital Signs Vital Signs Date Time Temp Pulse Resp B/P (MAP) Pulse Ox O2 Delivery O2 Flow Rate FiO2 11/08/20 00:23 37.1 86 19 145/83 (103) 94 Room Air Capillary Refill : Less Than 3 SecondsLess Than 3 Seconds General Appearance: No Apparent Distress, WD/WN, Chronically ill Respiratory: Chest Non Tender, Lungs Clear, Normal Breath Sounds, No Accessory Muscle Use, No Respiratory Distress Cardiovascular: Regular Rate, Rhythm, No Edema, No Gallop, No JVD, No Murmur, Normal Peripheral Pulses Neurologic/Psychiatric: Alert, Oriented x3, No Motor/Sensory Deficits, Normal Mood/Affect Results/Procedures Lab Patient resulted labs reviewed. Assessment/Plan Assessment and Plan Assess & Plan/Chief Complaint Assessment: Right lower extremity cellulitis DM OOC Plan: IV abx Pain meds 10/20/20: Dr Bonilla consultation appreciated Lovenox maintained Vanc and Cefepime 10/21/20: Consult Dr Man for I&D since he cursed Dr Bonilla out Very difficult situation with such aggressive behavior IV abx Monitor labs 10/22/20: s/p I&D Dr Man revealing necrotizing fascitis 10/23/20: Very angry and aggressive Reapply wound vac 10/24/20: Abx wound vac Verbally abusive 10/25/20: Refuses laxatives High risk for impaction and narcotic bowel and obstruction 10/29/20: Monitor labs Abx 10/30/20: DC planning? 10/31/20: Wound vac back in place Not ready for DC yet 11/01/20: Wound vac 11/01/20: Difficult situation 11/03/20 Diff to manage 11/04/20: Wound vac 11/05/20: DC planning delayed Await Monday for wound vac approval 11/06/20: Eating better Walking with walker 11/07/20: Monitor closely Clinical Quality Measures AMI/AHF: ASA po Prior to arrival: No DVT/VTE Risk/Contraindication: Risk Factor Score Per Nursin RFS Level Per Nursing on Admit: 4+=Very High LORNA FARMER DO Nov 07, 2020 07:20
[2020-11-07] MEDS: SENNA W/DOCUSATE (SENOKOT S) TABLET PO SCH ×2 (07:52→20:10)
[2020-11-07] MEDS: NICOTINE PATCH REMOVAL TP SCH (07:52)
[2020-11-07] MEDS: NICOTINE 21 MG (NICODERM) PATCH TD SCH (07:53)
[2020-11-07 08:00] VITALS: BP 147/84
[2020-11-07] MEDS: oxyCODONE/APAP 10/325MG (PERCOCET 10) TABLET PO PRN ×2 (13:22→20:09)
[2020-11-07 16:00] VITALS: BP 136/84
--- NOTE | 2020-11-07 17:03 | Progress Note ---
Subjective Date Seen by a Provider: Nov 07, 2020 Time Seen by a Provider: 13:00 Subjective/Events-last exam improving daily. pain better controlled. able to ambulate with walker. Focused Exam Time of Focused Exam: 14:11 Objective Exam Vital Signs Date Time Temp Pulse Resp B/P (MAP) Pulse Ox O2 Delivery O2 Flow Rate FiO2 11/07/20 16:00 36.8 80 18 136/84 (101) 98 Room Air 11/07/20 08:00 36.6 87 20 147/84 (105) 97 Room Air 11/07/20 08:00 Room Air 11/06/20 23:50 36.7 84 20 144/86 (105) 96 Room Air 11/06/20 20:45 Room Air I & O 11/07/20 07:00 Intake Total 2870 ml Output Total 3330 ml Balance -460 ml Capillary Refill : Less Than 3 SecondsLess Than 3 Seconds General Appearance: No Apparent Distress HEENT: PERRL/EOMI Neck: Full Range of Motion Respiratory: Decreased Breath Sounds, Wheezing Cardiovascular: Regular Rate, Rhythm Gastrointestinal: normal bowel sounds, non tender, soft Extremity: Normal Capillary Refill Neurologic/Psychiatric: Alert, Oriented x3 Skin: Normal Color Lymphatic: No Adenopathy Results Lab Laboratory Tests 11/06/20 21:06: Glucometer 134H 11/07/20 06:11: Glucometer 186H 11/07/20 11:39: Glucometer 156H 11/07/20 16:00: Glucometer 180H Microbiology 10/22/20 Gram Stain - Final, Complete 10/22/20 Anaerobic Culture - Final, Complete No anaerobes isolated 10/22/20 Surgical Culture - Final, Complete Staphylococcus aureus 10/21/20 MRSA Screen - Final, Complete MRSA not isolated 10/16/20 Blood Culture - Final, Complete No growth Assessment/Plan Assessment/Plan Assess & Plan/Chief Complaint necrotizing fasciitis right posterior lower extremity s/p WLE. wound care to place another vac and change q 72hrs. no new areas of necrosis, mild inferior erythema. continue close surveillance and vac. cont abx. will need to avoid contracture with PT at some point. may also need split thickness skin graft as OP. increase to 2400kcal ADA diet. awaiting home with home wound vac on monday. Clinical Quality Measures AMI/AHF: ASA po Prior to arrival: No DVT/VTE Risk/Contraindication: Risk Factor Score Per Nursin RFS Level Per Nursing on Admit: 4+=Very High SONJA GODWIN MD Nov 07, 2020 17:03
--- NOTE | 2020-11-07 17:24 | NUR ---
reported to this nurse wound vac been approved (insurance) tried to organize with home health for discharge today unsuccessful , waiting till Monday
[2020-11-07] MEDS: ENOXAPARIN 40 MG/0.4 ML (LOVENOX) SYR SC SCH (20:11)
[2020-11-08 00:23] VITALS: BP 145/83
[2020-11-08] MEDS: oxyCODONE/APAP 10/325MG (PERCOCET 10) TABLET PO PRN ×4 (02:48→23:57)
[2020-11-08] MEDS: KCL 8 MEQ (MICRO K) TABLET PO SCH (06:13)
[2020-11-08] MEDS: inSUlin ASPART (NovoLOG) 1 UNIT/0.01 ML (CHARGE PER UNIT) SC SCH ×7 (06:13→20:21)
[2020-11-08 08:00] VITALS: BP 180/96
[2020-11-08] MEDS: SENNA W/DOCUSATE (SENOKOT S) TABLET PO SCH ×2 (08:44→20:04)
[2020-11-08] MEDS: NICOTINE 21 MG (NICODERM) PATCH TD SCH ×2 (08:44→08:51)
[2020-11-08] MEDS: NICOTINE PATCH REMOVAL TP SCH (08:49)
--- NOTE | 2020-11-08 12:28 | Progress Note - Hospitalist ---
Subjective HPI/CC On Admission Date Seen by Provider: Nov 08, 2020 Time Seen by Provider: 11:30 Patient reports right leg soreness behind the knee for several weeks. Got progressively worse and then he had noted redness swelling traveling up the leg. He denied anterior knee pain or swelling. He underwent venous Doppler evaluation that reportedly did not reveal any evidence for blood clot. He had been having some night sweats and because of this and weakness he presented to the emergency room where he had evidence for cellulitis with a sending lymphangitis his white count was 32,000 and he was admitted with SIRS secondary to his cellulitis. He has a history of type 2 diabetes for which he had taken insulin in the past. He reports he is not taking any therapy for diabetes with a history of recent incarceration. He has had no form of diabetic monitoring. He reports no previous history of skin infection or bone infection. He is not aware of any kidney problems vision is somewhat poor bilaterally and he reports numbness to the level of his ankles bilaterally. Subjective/Events-last exam DC planned for tomorrow Wound vac in place Review of Systems Musculoskeletal: leg pain Focused Exam Time of Focused Exam: 14:11 Objective Exam Vital Signs Vital Signs Date Time Temp Pulse Resp B/P (MAP) Pulse Ox O2 Delivery O2 Flow Rate FiO2 11/08/20 16:30 36.4 88 16 136/81 (99) 98 Room Air Capillary Refill : Less Than 3 SecondsLess Than 3 Seconds General Appearance: No Apparent Distress, WD/WN Results/Procedures Lab Patient resulted labs reviewed. Assessment/Plan Assessment and Plan Assess & Plan/Chief Complaint Assessment: Right lower extremity cellulitis DM OOC Plan: IV abx Pain meds 10/20/20: Dr Bonilla consultation appreciated Lovenox maintained Vanc and Cefepime 10/21/20: Consult Dr Man for I&D since he cursed Dr Bonilla out Very difficult situation with such aggressive behavior IV abx Monitor labs 10/22/20: s/p I&D Dr Man revealing necrotizing fascitis 10/23/20: Very angry and aggressive Reapply wound vac 10/24/20: Abx wound vac Verbally abusive 10/25/20: Refuses laxatives High risk for impaction and narcotic bowel and obstruction 10/29/20: Monitor labs Abx 10/30/20: DC planning? 10/31/20: Wound vac back in place Not ready for DC yet 11/01/20: Wound vac 11/01/20: Difficult situation 11/03/20 Diff to manage 11/04/20: Wound vac 11/05/20: DC planning delayed Await Monday for wound vac approval 11/06/20: Eating better Walking with walker 11/07/20: Monitor closely 11/08/20: DC planned for tomorrow Clinical Quality Measures AMI/AHF: ASA po Prior to arrival: No DVT/VTE Risk/Contraindication: Risk Factor Score Per Nursin RFS Level Per Nursing on Admit: 4+=Very High LORNA FARMER DO Nov 08, 2020 12:28
[2020-11-08 16:30] VITALS: BP 136/81
[2020-11-08] MEDS ORDERED: SALINE NASAL SPRAY (OCEAN) 45 ML BTL PRN (20:00)
[2020-11-08] MEDS: ENOXAPARIN 40 MG/0.4 ML (LOVENOX) SYR SC SCH (20:04)
[2020-11-09 00:17] VITALS: BP 146/85
[2020-11-09] MEDS: inSUlin ASPART (NovoLOG) 1 UNIT/0.01 ML (CHARGE PER UNIT) SC SCH ×2 (05:38→07:47)
[2020-11-09] MEDS: oxyCODONE/APAP 10/325MG (PERCOCET 10) TABLET PO PRN (06:06)
[2020-11-09] MEDS: KCL 8 MEQ (MICRO K) TABLET PO SCH (06:06)
[2020-11-09] MEDS: NICOTINE 21 MG (NICODERM) PATCH TD SCH (07:47)
[2020-11-09] MEDS: SENNA W/DOCUSATE (SENOKOT S) TABLET PO SCH (07:47)
[2020-11-09] MEDS: NICOTINE PATCH REMOVAL TP SCH (07:47)
[2020-11-09 08:00] VITALS: BP 127/76
--- NOTE | 2020-11-09 09:09 | Discharge Summary ---
Diagnosis/Chief Complaint Date of Admission Oct 16, 2020 at 16:15 Date of Discharge Discharge Date: Nov 05, 2020 Discharge Diagnosis Assessment: Right lower extremity cellulitis w/necrotizing fascitis DM OOC Plan: IV abx Pain meds 10/20/20: Dr Bonilla consultation appreciated Lovenox maintained Vanc and Cefepime 10/21/20: Consult Dr Man for I&D since he cursed Dr Bonilla out Very difficult situation with such aggressive behavior IV abx Monitor labs 10/22/20: s/p I&D Dr Man revealing necrotizing fascitis 10/23/20: Very angry and aggressive Reapply wound vac 10/24/20: Abx wound vac Verbally abusive 10/25/20: Refuses laxatives High risk for impaction and narcotic bowel and obstruction 10/29/20: Monitor labs Abx 10/30/20: DC planning? 10/31/20: Wound vac back in place Not ready for DC yet 11/01/20: Wound vac 11/01/20: Difficult situation 11/03/20 Diff to manage 11/04/20: Wound vac 11/05/20: DC planning delayed Await Monday for wound vac approval 11/06/20: Eating better Walking with walker 11/07/20: Monitor closely 11/08/20: DC planned for tomorrow Discharge Summary Discharge Physical Examination Allergies: Coded Allergies: Penicillins (Unverified Adverse Reaction, Unknown, 07/22/19) Vitals & I&Os Vital Signs Date Time Temp Pulse Resp B/P (MAP) Pulse Ox O2 Delivery O2 Flow Rate FiO2 11/09/20 11:20 36.2 80 18 127/76 97 Room Air General Appearance: Alert, Oriented X3, Cooperative Respiratory: Clear to Auscultation Hospital Course Was the Problem List Reviewed?: Yes Hospital course: Pt had a lengthy hospital course for 25 days due to leg necrotizing fasciitis that required multiple surgical incision and drainage and then a wound vac and IV antibiotics. Overall he responded well, due to his poor social situation and drug use he was monitored closely during the hospital course. Bowel function regained back to normalcy and overall he did very well except for his poor com pliance with insulin, I doubt that he will ave a good outcome, home health will try to change the wound-vac and he will be maintained on antibiotics and insulin and will have close follow-up with [facility]. Labs (last 24 hrs) Laboratory Tests 10/16/20 12:05: White Blood Count 32.7*H, Red Blood Count 4.81, Hemoglobin 15.5, Hematocrit 45, Mean Corpuscular Volume 93, Mean Corpuscular Hemoglobin 32, Mean Corpuscular Hemoglobin Concent 35, Red Cell Distribution Width 11.3, Platelet Count 349, Haley n Platelet Volume 10.2, Immature Granulocyte % (Auto) 1, Neutrophils (%) (Auto) 85H, Lymphocytes (%) (Auto) 4L, Monocytes (%) (Auto) 10, Eosinophils (%) (Auto) 0, Basophils (%) (Auto) 0, Neutrophils # (Auto) 27.8H, Lymphocytes # (Auto) 1.4, Monocytes # (Auto) 3.1H, Eosinophils # (Auto) 0.0, Basophils # (Auto) 0.1, Immature Granulocyte # (Auto) 0.3H, Neutrophils % (Manual) 67, Lymphocytes % (Manual) 3, Monocytes % (Manual) 10, Eosinophils % (Manual) 0, Basophils % (Manual) 0, Band Neutrophils 20, Blood Morphology Comment NORMAL, Prothrombin Time 14.3, INR Comment 1.1, Activated Partial Thromboplast Time 28, Sodium Level 127L, Potassium Level 4.4, Chloride Level 87L, Carbon Dioxide Level 22, Anion Gap 18H, Blood Urea Nitrogen 30H, Creatinine 0.87, Estimat Glomerular Filtration Rate > 60, BUN/Creatinine Ratio 34, Glucose Level 350H, Calcium Level 9.5, Corrected Calcium 10.1, Magnesium Level 2.0, Total Bilirubin 0.4, Aspartate Amino Transf (AST/SGOT) 20, Alanine Aminotransferase (ALT/SGPT) 20, Alkaline Phosphatase 123, Myoglobin 87.8, Troponin I < 0.30, Pro-B-Type Natriuretic Peptide 398.9H, Total Protein 7.2, Albumin 3.3, Lipase 32 10/16/20 13:43: Lactic Acid Level 1.49 10/16/20 14:37: Glucometer 302H 10/16/20 16:15: Lab Scanned Report Referred Lab Report 10/16/20 17:35: Glucometer 169H 10/16/20 20:03: Glucometer 223H 10/17/20 05:00: White Blood Count 22.8H, Red Blood Count 4.23L, Hemoglobin 13.7, Hematocrit 40, Mean Corpuscular Volume 95, Mean Corpuscular Hemoglobin 32, Mean Corpuscular Hemoglobin Concent 34, Red Cell Distribution Width 11.0, Platelet Count 261, Mean Platelet Volume 10.5, Immature Granulocyte % (Auto) 1, Neutrophils (%) (Auto) 82H, Lymphocytes (%) (Auto) 6L, Monocytes (%) (Auto) 11, Eosinophils (%) (Auto) 0, Basophils (%) (Auto) 0, Neutrophils # (Auto) 18.7H, Lymphocytes # (Auto) 1.4, Monocytes # (Auto) 2.5H, Eosinophils # (Auto) 0.0, Basophils # (Auto) 0.0, Immature Granulocyte # (Auto) 0.2H, Sodium Level 127L, Potassium Level 3.6, Chloride Level 92L, Carbon Dioxide Level 20L, Anion Gap 15H, Blood Urea Nitrogen 20H, Creatinine 0.76, Estimat Glomerular Filtration Rate > 60, BUN/Creatinine Ratio 26, Glucose Level 261H, Calcium Level 8.3L, Corrected Calcium 9.3, Total Bilirubin 0.5, Aspartate Amino Transf (AST/SGOT) 28, Alanine Aminotransferase (ALT/SGPT) 24, Alkaline Phosphatase 100, Total Protein 5.9L, Albumin 2.8L 10/17/20 11:12: Glucometer 272H 10/17/20 15:34: Glucometer 83 10/17/20 20:33: Glucometer 158H 10/18/20 05:58: Glucometer 168H 10/18/20 08:30: White Blood Count 21.0H, Red Blood Count 4.31, Hemoglobin 13.9, Hematocrit 40, Mean Corpuscular Volume 92, Mean Corpuscular Hemoglobin 32, Mean Corpuscular Hemoglobin Concent 35, Red Cell Distribution Width 10.9, Platelet Count 279, Mean Platelet Volume 9.7, Immature Granulocyte % (Auto) 1, Neutrophils (%) (Auto) 82H, Lymphocytes (%) (Auto) 7L, Monocytes (%) (Auto) 10, Eosinophils (%) (Auto) 0, Basophils (%) (Auto) 0, Neutrophils # (Auto) 17.2H, Lymphocytes # (Auto) 1.5, Monocytes # (Auto) 2.1H, Eosinophils # (Auto) 0.1, Basophils # (Auto) 0.1, Immature Granulocyte # (Auto) 0.1, Sodium Level 135, Potassium Level 3.3L, Chloride Level 97L, Carbon Dioxide Level 25, Anion Gap 13, Blood Urea Nitrogen 12, Creatinine 0.64, Estimat Glomerular Filtration Rate > 60, BUN/Creatinine Ratio 19, Glucose Level 200H, Calcium Level 8.3L 10/18/20 11:32: Glucometer 124H 10/18/20 19:58: Glucometer 190H 10/19/20 04:35: Sodium Level 137, Potassium Level 3.3L, Chloride Level 101, Carbon Dioxide Level 26, Anion Gap 10, Blood Urea Nitrogen 9, Creatinine 0.61, Estimat Glomerular Filtration Rate > 60, BUN/Creatinine Ratio 15, Glucose Level 141H, Calcium Level 7.9L 10/19/20 04:45: White Blood Count 17.0H, Red Blood Count 3.95L, Hemoglobin 12.7L, Hematocrit 37L , Mean Corpuscular Volume 94, Mean Corpuscular Hemoglobin 32, Mean Corpuscular Hemoglobin Concent 34, Red Cell Distribution Width 10.9, Platelet Count 284, Mean Platelet Volume 9.6, Immature Granulocyte % (Auto) 1, Neutrophils (%) (Auto) 75, Lymphocytes (%) (Auto) 11L, Monocytes (%) (Auto) 13H, Eosinophils (%) (Auto) 0, Basophils (%) (Auto) 0, Neutrophils # (Auto) 12.8H, Lymphocytes # (Auto) 1.8, Monocytes # (Auto) 2.1H, Eosinophils # (Auto) 0.1, Basophils # (Auto) 0.0, Immature Granulocyte # (Auto) 0.2H 10/19/20 11:30: Glucometer 243H 10/19/20 15:27: Glucometer 246H 10/19/20 20:18: Glucometer 194H 10/20/20 05:21: Glucometer 216H 10/20/20 11:50: White Blood Count 14.2H, Red Blood Count 3.77L, Hemoglobin 12.0L, Hematocrit 36L , Mean Corpuscular Volume 95, Mean Corpuscular Hemoglobin 32, Mean Corpuscular Hemoglobin Concent 34, Red Cell Distribution Width 11.3, Platelet Count 328, Mean Platelet Volume 9.3, Immature Granulocyte % (Auto) 1, Neutrophils (%) (Auto) 72, Lymphocytes (%) (Auto) 12, Monocytes (%) (Auto) 14H, Eosinophils (%) (Auto) 0, Basophils (%) (Auto) 0, Neutrophils # (Auto) 10.2H, Lymphocytes # (Auto) 1.8, Monocytes # (Auto) 2.0H, Eosinophils # (Auto) 0.1, Basophils # (Auto) 0.0, Immature Granulocyte # (Auto) 0.1, Sodium Level 128L, Potassium Level 3.8, Chloride Level 92L, Carbon Dioxide Level 29, Anion Gap 7, Blood Urea Nitrogen 8, Creatinine 0.70, Estimat Glomerular Filtration Rate > 60, BUN/Creatinine Ratio 11, Glucose Level 238H, Calcium Level 7.7L, Corrected Calcium 9.0, Total Bilirubin 0.4, Aspartate Amino Transf (AST/SGOT) 28, Alanine Aminotransferase (ALT/SGPT) 24, Alkaline Phosphatase 84, Total Protein 5.3L, Albumin 2.4L 10/20/20 20:40: Glucometer 213H 10/21/20 05:59: Glucometer 113H 10/21/20 06:22: White Blood Count 15.5H, Red Blood Count 3.73L, Hemoglobin 12.0L, Hematocrit 36L , Mean Corpuscular Volume 96, Mean Corpuscular Hemoglobin 32, Mean Corpuscular Hemoglobin Concent 34, Red Cell Distribution Width 11.2, Platelet Count 350, Mean Platelet Volume 9.1, Immature Granulocyte % (Auto) 1, Neutrophils (%) (Auto) 75, Lymphocytes (%) (Auto) 13, Monocytes (%) (Auto) 11, Eosinophils (%) (Auto) 1, Basophils (%) (Auto) 0, Neutrophils # (Auto) 11.5H, Lymphocytes # (Auto) 2.0, Monocytes # (Auto) 1.7H, Eosinophils # (Auto) 0.1, Basophils # (Auto) 0.0, Immature Granulocyte # (Auto) 0.1, Sodium Level 129L, Potassium Level 4.0, Chloride Level 92L, Carbon Dioxide Level 32, Anion Gap 5, Blood Urea Nitrogen 7, Creatinine 0.62, Estimat Glomerular Filtration Rate > 60, BUN/Creatinine Ratio 11, Glucose Level 107H, Calcium Level 7.8L, Corrected Calcium 9.0, Total Bilirubin 0.4, Aspartate Amino Transf (AST/SGOT) 30, Alanine Aminotransferase (ALT/SGPT) 24, Alkaline Phosphatase 84, Total Protein 5.6L, Albumin 2.5L 10/21/20 15:30: Glucometer 205H 10/21/20 20:28: Glucometer 189H 10/22/20 05:45: White Blood Count 17.7H, Red Blood Count 3.77L, Hemoglobin 12.0L, Hematocrit 36L , Mean Corpuscular Volume 97, Mean Corpuscular Hemoglobin 32, Mean Corpuscular Hemoglobin Concent 33, Red Cell Distribution Width 11.2, Platelet Count 408H, Mean Platelet Volume 8.9L, Immature Granulocyte % (Auto) 1, Neutrophils (%) (Auto) 78H, Lymphocytes (%) (Auto) 11L, Monocytes (%) (Auto) 9, Eosinophils (%) (Auto) 1, Basophils (%) (Auto) 0, Neutrophils # (Auto) 13.9H, Lymphocytes # (Auto) 1.9, Monocytes # (Auto) 1.7H, Eosinophils # (Auto) 0.1, Basophils # (Auto) 0.0, Immature Granulocyte # (Auto) 0.1, Neutrophils % (Manual) 76, Lymphocytes % (Manual) 15, Monocytes % (Manual) 6, Band Neutrophils 3, Toxic Granulation 2+, Sodium Level 130L, Potassium Level 4.8, Chloride Level 90L, Carbon Dioxide Level 30, Anion Gap 10, Blood Urea Nitrogen 6L, Creatinine 0.67, Estimat Glomerular Filtration Rate > 60, BUN/Creatinine Ratio 9, Glucose Level 171H, Calcium Level 8.1L, Corrected Calcium 9.2, Total Bilirubin 0.5, Aspartate Amino Transf (AST/SGOT) 29, Alanine Aminotransferase (ALT/SGPT) 24, Alkaline Phosphatase 96, Total Protein 5.9L, Albumin 2.6L 10/22/20 07:45: Coronavirus 2019 (PARAM) Negative 10/22/20 13:56: Glucometer 190H 10/22/20 15:39: Glucometer 183H 10/22/20 16:00: Vancomycin Level Trough 7.0L 10/22/20 17:33: Glucometer 96 10/22/20 20:18: Glucometer 242H 10/23/20 05:41: Glucometer 109 10/23/20 05:45: White Blood Count 14.9H, Red Blood Count 3.58L, Hemoglobin 11.7L, Hematocrit 35L , Mean Corpuscular Volume 96, Mean Corpuscular Hemoglobin 33, Mean Corpuscular Hemoglobin Concent 34, Red Cell Distribution Width 11.1, Platelet Count 470H, Mean Platelet Volume 8.6L, Immature Granulocyte % (Auto) 1, Neutrophils (%) (Auto) 71, Lymphocytes (%) (Auto) 17, Monocytes (%) (Auto) 10, Eosinophils (%) (Auto) 1, Basophils (%) (Auto) 0, Neutrophils # (Auto) 10.6H, Lymphocytes # (Auto) 2.6, Monocytes # (Auto) 1.5H, Eosinophils # (Auto) 0.1, Basophils # (Auto) 0.0, Immature Granulocyte # (Auto) 0.1, Sodium Level 136, Potassium Level 3.5L, Chloride Level 95L, Carbon Dioxide Level 29, Anion Gap 12, Blood Urea Nitrogen 5L, Creatinine 0.67, Estimat Glomerular Filtration Rate > 60, BUN/Creatinine Ratio 7, Glucose Level 107H, Calcium Level 8.1L, Corrected Calcium 9.2, Total Bilirubin 0.3, Aspartate Amino Transf (AST/SGOT) 25, Alanine Aminotransferase (ALT/SGPT) 22, Alkaline Phosphatase 83, Total Protein 6.0L, Albumin 2.6L 10/23/20 15:59: Glucometer 98 10/23/20 20:40: Glucometer 226H 10/24/20 04:45: White Blood Count 10.8, Red Blood Count 3.35L, Hemoglobin 10.8L, Hematocrit 32L, Mean Corpuscular Volume 96, Mean Corpuscular Hemoglobin 32, Mean Corpuscular Hemoglobin Concent 34, Red Cell Distribution Width 11.1, Platelet Count 500H, Mean Platelet Volume 8.5L, Immature Granulocyte % (Auto) 1, Neutrophils (%) (Auto) 65, Lymphocytes (%) (Auto) 23, Monocytes (%) (Auto) 10, Eosinophils (%) (Auto) 1, Basophils (%) (Auto) 0, Neutrophils # (Auto) 7.0, Lymphocytes # (Auto) 2.5, Monocytes # (Auto) 1.1H, Eosinophils # (Auto) 0.1, Basophils # (Auto) 0.0, Immature Granulocyte # (Auto) 0.1, Sodium Level 134L, Potassium Level 3.9, Chloride Level 96L, Carbon Dioxide Level 30, Anion Gap 8, Blood Urea Nitrogen 4L , Creatinine 0.68, Estimat Glomerular Filtration Rate > 60, BUN/Creatinine Ratio 6, Glucose Level 83, Calcium Level 8.1L, Corrected Calcium 9.2, Total Bilirubin 0.3, Aspartate Amino Transf (AST/SGOT) 27, Alanine Aminotransferase (ALT/SGPT) 23, Alkaline Phosphatase 75, Total Protein 6.0L, Albumin 2.6L, Vancomycin Level Trough 14.0 10/24/20 11:57: Glucometer 81 10/24/20 16:28: Glucometer 139H 10/24/20 20:53: Glucometer 229H 10/25/20 05:25: Glucometer 83 10/25/20 07:00: White Blood Count 8.7, Red Blood Count 3.32L, Hemoglobin 10.6L, Hematocrit 33L, Mean Corpuscular Volume 98, Mean Corpuscular Hemoglobin 32, Mean Corpuscular Hemoglobin Concent 33, Red Cell Distribution Width 11.2, Platelet Count 482H, Mean Platelet Volume 8.4L, Sodium Level 136, Potassium Level 4.3, Chloride Level 97L, Carbon Dioxide Level 31, Anion Gap 8, Blood Urea Nitrogen 4L, Creatinine 0.66, Estimat Glomerular Filtration Rate > 60, BUN/Creatinine Ratio 6, Glucose Level 96, Calcium Level 8.4L, Corrected Calcium 9.4, Total Bilirubin 0.3, Aspartate Amino Transf (AST/SGOT) 30, Alanine Aminotransferase (ALT/SGPT) 22, Alkaline Phosphatase 68, Total Protein 6.3L, Albumin 2.7L 10/25/20 11:04: Glucometer 73 10/25/20 15:54: Glucometer 97 10/25/20 20:16: Glucometer 206H 10/26/20 05:59: White Blood Count 9.5, Red Blood Count 3.71L, Hemoglobin 11.8L, Hematocrit 36L, Mean Corpuscular Volume 98, Mean Corpuscular Hemoglobin 32, Mean Corpuscular Hemoglobin Concent 33, Red Cell Distribution Width 11.3, Platelet Count 672H, Mean Platelet Volume 8.6L, Immature Granulocyte % (Auto) 1, Neutrophils (%) (Auto) 66, Lymphocytes (%) (Auto) 23, Monocytes (%) (Auto) 9, Eosinophils (%) (Auto) 1, Basophils (%) (Auto) 0, Neutrophils # (Auto) 6.2, Lymphocytes # (Auto) 2.2, Monocytes # (Auto) 0.9, Eosinophils # (Auto) 0.1, Basophils # (Auto) 0.0, Immature Granulocyte # (Auto) 0.1, Sodium Level 136, Potassium Level 4.6, Chloride Level 96L, Carbon Dioxide Level 31, Anion Gap 9, Blood Urea Nitrogen 6L , Creatinine 0.74, Estimat Glomerular Filtration Rate > 60, BUN/Creatinine Ratio 8, Glucose Level 103, Mean Blood Glucose 278H, Hemoglobin A1c 11.3H, Calcium Level 9.1, Corrected Calcium 9.9, Total Bilirubin 0.4, Aspartate Amino Transf (AST/SGOT) 35H, Alanine Aminotransferase (ALT/SGPT) 25, Alkaline Phosphatase 79, Total Protein 7.2, Albumin 3.0L 10/26/20 11:28: Glucometer 258H 10/26/20 17:02: Glucometer 161H 10/26/20 20:52: Glucometer 238H 10/27/20 05:25: White Blood Count 9.9, Red Blood Count 3.74L, Hemoglobin 11.9L, Hematocrit 36L, Mean Corpuscular Volume 96, Mean Corpuscular Hemoglobin 32, Mean Corpuscular Hemoglobin Concent 33, Red Cell Distribution Width 11.2, Platelet Count 581H, Mean Platelet Volume 8.4L, Immature Granulocyte % (Auto) 1, Neutrophils (%) (Auto) 64, Lymphocytes (%) (Auto) 25, Monocytes (%) (Auto) 9, Eosinophils (%) (Auto) 1, Basophils (%) (Auto) 0, Neutrophils # (Auto) 6.3, Lymphocytes # (Auto) 2.5, Monocytes # (Auto) 0.9, Eosinophils # (Auto) 0.1, Basophils # (Auto) 0.0, Immature Granulocyte # (Auto) 0.1 10/27/20 05:31: Glucometer 91 10/27/20 11:25: Glucometer 163H 10/27/20 15:26: Glucometer 372H 10/27/20 20:22: Glucometer 56*L 10/28/20 05:43: White Blood Count 9.2, Red Blood Count 3.59L, Hemoglobin 11.3L, Hematocrit 35L, Mean Corpuscular Volume 96, Mean Corpuscular Hemoglobin 32, Mean Corpuscular Hemoglobin Concent 33, Red Cell Distribution Width 11.4, Platelet Count 583H, Mean Platelet Volume 8.5L, Immature Granulocyte % (Auto) 1, Neutrophils (%) (Auto) 60, Lymphocytes (%) (Auto) 31, Monocytes (%) (Auto) 7, Eosinophils (%) (Auto) 2, Basophils (%) (Auto) 1, Neutrophils # (Auto) 5.5, Lymphocytes # (Auto) 2.9, Monocytes # (Auto) 0.7, Eosinophils # (Auto) 0.1, Basophils # (Auto) 0.1, Immature Granulocyte # (Auto) 0.1, Sodium Level 133L, Potassium Level 4.7, Chloride Level 96L, Carbon Dioxide Level 25, Anion Gap 12, Blood Urea Nitrogen 12, Creatinine 0.69, Estimat Glomerular Filtration Rate > 60, BUN/Creatinine Ratio 17, Glucose Level 194H, Calcium Level 8.8 10/28/20 11:05: Glucometer 108 10/28/20 15:40: Glucometer 193H 10/28/20 19:44: Glucometer 229H 10/29/20 05:18: Glucometer 128H 10/29/20 06:45: White Blood Count 9.1, Red Blood Count 3.42L, Hemoglobin 10.9L, Hematocrit 33L, Mean Corpuscular Volume 96, Mean Corpuscular Hemoglobin 32, Mean Corpuscular Hemoglobin Concent 33, Red Cell Distribution Width 11.4, Platelet Count 594H, Mean Platelet Volume 8.4L, Sodium Level 134L, Potassium Level 4.5, Chloride Level 96L, Carbon Dioxide Level 30, Anion Gap 8, Blood Urea Nitrogen 14, Creatinine 0.74, Estimat Glomerular Filtration Rate > 60, BUN/Creatinine Ratio 19, Glucose Level 148H, Calcium Level 9.0, Corrected Calcium 9.7, Total Bilirubin 0.3, Aspartate Amino Transf (AST/SGOT) 35H, Alanine Aminotransferase (ALT/SGPT) 23, Alkaline Phosphatase 71, Total Protein 7.1, Albumin 3.1L 10/29/20 11:11: Glucometer 319H 10/29/20 16:17: Glucometer 197H 10/29/20 21:58: Glucometer 254H 10/30/20 06:05: Glucometer 241H 10/30/20 11:14: Glucometer 102 10/30/20 16:10: Glucometer 205H 10/30/20 21:10: Glucometer 198H 10/31/20 05:31: Glucometer 146H 10/31/20 07:41: White Blood Count 9.1, Red Blood Count 3.50L, Hemoglobin 11.1L, Hematocrit 34L, Mean Corpuscular Volume 97, Mean Corpuscular Hemoglobin 32, Mean Corpuscular Hemoglobin Concent 33, Red Cell Distribution Width 11.4, Platelet Count 608H, Mean Platelet Volume 8.8L, Sodium Level 134L, Potassium Level 4.2, Chloride Level 94L, Carbon Dioxide Level 31, Anion Gap 9, Blood Urea Nitrogen 17, Creatinine 0.71, Estimat Glomerular Filtration Rate > 60, BUN/Creatinine Ratio 24, Glucose Level 125H, Calcium Level 9.0, Corrected Calcium 9.6, Total Bilirubin 0.3, Aspartate Amino Transf (AST/SGOT) 31, Alanine Aminotransferase (ALT/SGPT) 25, Alkaline Phosphatase 72, Total Protein 7.4, Albumin 3.3 10/31/20 11:02: Glucometer 139H 10/31/20 16:03: Glucometer 220H 10/31/20 20:51: Glucometer 231H 11/01/20 05:26: Glucometer 227H 11/01/20 11:32: Glucometer 83 11/01/20 15:36: Glucometer 288H 11/01/20 20:48: Glucometer 337H 11/02/20 06:01: Glucometer 184H 11/02/20 06:50: White Blood Count 7.3, Red Blood Count 3.47L, Hemoglobin 11.0L, Hematocrit 33L, Mean Corpuscular Volume 96, Mean Corpuscular Hemoglobin 32, Mean Corpuscular Hemoglobin Concent 33, Red Cell Distribution Width 11.3, Platelet Count 536H, Mean Platelet Volume 8.8L, Immature Granulocyte % (Auto) 0, Neutrophils (%) (A uto) 47, Lymphocytes (%) (Auto) 40, Monocytes (%) (Auto) 10, Eosinophils (%) (Auto) 2, Basophils (%) (Auto) 1, Neutrophils # (Auto) 3.4, Lymphocytes # (Auto) 2.9, Monocytes # (Auto) 0.7, Eosinophils # (Auto) 0.2, Basophils # (Auto) 0.1, Immature Granulocyte # (Auto) 0.0, Sodium Level 135, Potassium Level 4.4, Chloride Level 95L, Carbon Dioxide Level 33H, Anion Gap 7, Blood Urea Nitrogen 16, Creatinine 0.78, Estimat Glomerular Filtration Rate > 60, BUN/Creatinine Rat io 21, Glucose Level 177H, Calcium Level 9.5, Corrected Calcium 10.0, Total Bilirubin 0.2, Aspartate Amino Transf (AST/SGOT) 34, Alanine Aminotransferase (ALT/SGPT) 24, Alkaline Phosphatase 75, Total Protein 7.5, Albumin 3.4 11/02/20 10:56: Glucometer 96 11/02/20 15:52: Glucometer 195H 11/02/20 20:48: Glucometer 165H 11/03/20 04:12: White Blood Count 7.6, Red Blood Count 3.64L, Hemoglobin 11.4L, Hematocrit 35L, Mean Corpuscular Volume 97, Mean Corpuscular Hemoglobin 31, Mean Corpuscular Hemoglobin Concent 32, Red Cell Distribution Width 11.3, Platelet Count 515H, Mean Platelet Volume 8.8L, Immature Granulocyte % (Auto) 0, Neutrophils (%) (Auto) 45, Lymphocytes (%) (Auto) 43, Monocytes (%) (Auto) 9, Eosinophils (%) (Auto) 2, Basophils (%) (Auto) 1, Neutrophils # (Auto) 3.4, Lymphocytes # (Auto) 3.3, Monocytes # (Auto) 0.7, Eosinophils # (Auto) 0.2, Basophils # (Auto) 0.0, Immature Granulocyte # (Auto) 0.0, Sodium Level 137, Potassium Level 4.3, Chloride Level 95L, Carbon Dioxide Level 35H, Anion Gap 7, Blood Urea Nitrogen 15, Creatinine 0.73, Estimat Glomerular Filtration Rate > 60, BUN/Creatinine Ratio 21, Glucose Level 110H, Calcium Level 9.5, Corrected Calcium 10.0, Total Bilirubin 0.2, Aspartate Amino Transf (AST/SGOT) 37H, Alanine Aminotransferase (ALT/SGPT) 28, Alkaline Phosphatase 74, Total Protein 7.6, Albumin 3.4 11/03/20 05:14: Glucometer 102 11/03/20 11:05: Glucometer 288H 11/03/20 15:34: Glucometer 30*L 11/03/20 16:09: Glucometer 62L 11/03/20 20:11: Glucometer 339H 11/04/20 04:59: Glucometer 240H 11/04/20 11:24: Glucometer 242H 11/04/20 15:17: Glucometer 101 11/04/20 20:49: Glucometer 258H 11/05/20 05:48: Glucometer 148H 11/05/20 10:38: Glucometer 234H 11/05/20 14:45: Glucometer 46*L 11/05/20 15:02: Glucometer 95 11/05/20 15:38: Glucometer 158H 11/05/20 20:17: Glucometer 308H 11/06/20 04:55: White Blood Count 9.9, Red Blood Count 3.63L, Hemoglobin 11.4L, Hematocrit 35L, Mean Corpuscular Volume 96, Mean Corpuscular Hemoglobin 31, Mean Corpuscular Hemoglobin Concent 33, Red Cell Distribution Width 11.4, Platelet Count 519H, Mean Platelet Volume 9.5, Immature Granulocyte % (Auto) 0, Neutrophils (%) (Auto) 58, Lymphocytes (%) (Auto) 33, Monocytes (%) (Auto) 8, Eosinophils (%) (Auto) 1, Basophils (%) (Auto) 1, Neutrophils # (Auto) 5.7, Lymphocytes # (Auto) 3.3, Monocytes # (Auto) 0.8, Eosinophils # (Auto) 0.1, Basophils # (Auto) 0.1, Immature Granulocyte # (Auto) 0.0, Sodium Level 133L, Potassium Level 4.4, Chloride Level 96L, Carbon Dioxide Level 27, Anion Gap 10, Blood Urea Nitrogen 17, Creatinine 0.76, Estimat Glomerular Filtration Rate > 60, BUN/Creatinine Ratio 22, Glucose Level 250H, Calcium Level 9.1, Corrected Calcium 9.4, Total Bilirubin 0.2, Aspartate Amino Transf (AST/SGOT) 39H, Alanine Aminotransferase (ALT/SGPT) 36, Alkaline Phosphatase 70, Total Protein 7.5, Albumin 3.6 11/06/20 10:38: Glucometer 242H 11/06/20 15:45: Glucometer 177H 11/06/20 21:06: Glucometer 134H 11/07/20 06:11: Glucometer 186H 11/07/20 11:39: Glucometer 156H 11/07/20 16:00: Glucometer 180H 11/07/20 20:05: Glucometer 307H 11/08/20 05:43: Glucometer 253H 11/08/20 10:27: Glucometer 226H 11/08/20 15:57: Glucometer 149H 11/08/20 20:06: Glucometer 266H 11/09/20 05:36: Glucometer 161H 11/09/20 10:49: Glucometer 157H Microbiology 10/22/20 Gram Stain - Final, Complete 10/22/20 Anaerobic Culture - Final, Complete No anaerobes isolated 10/22/20 Surgical Culture - Final, Complete Staphylococcus aureus 10/21/20 MRSA Screen - Final, Complete MRSA not isolated 10/16/20 Blood Culture - Final, Complete No growth Pending Labs Microbiology Date/Time Source Procedure Growth Status 10/22/20 09:52 Body Site, Not Otherwise Spec. Other Gram Stain - Final Complete 10/22/20 09:52 Body Site, Not Otherwise Spec. Other Anaerobic Culture - Final No anaerobes isolated Complete 10/22/20 09:52 Surgical Culture - Final Staphylococcus aureus Complete 10/21/20 06:06 Nasal MRSA Screen - Final MRSA not isolated Complete 10/16/20 13:55 Peripheral Left Forearm Blood Culture - Final No growth Complete 10/16/20 13:43 Peripheral Lt Ac Blood Culture - Final No growth Complete Laboratory Tests 10/16/20 12:05: White Blood Count 32.7, Red Blood Count 4.81, Hemoglobin 15.5, Hematocrit 45, Mean Corpuscular Volume 93, Mean Corpuscular Hemoglobin 32, Mean Corpuscular Hemoglobin Concent 35, Red Cell Distribution Width 11.3, Platelet Count 349, Mean Platelet Volume 10.2, Immature Granulocyte % (Auto) 1, Neutrophils (%) (Auto) 85, Lymphocytes (%) (Auto) 4, Monocytes (%) (Auto) 10, Eosinophils (%) (Auto) 0, Basophils (%) (Auto) 0, Neutrophils # (Auto) 27.8, Lymphocytes # (Auto) 1.4, Monocytes # (Auto) 3.1, Eosinophils # (Auto) 0.0, Basophils # (Auto) 0.1, Immature Granulocyte # (Auto) 0.3, Neutrophils % (Manual) 67, Lymphocytes % (Manual) 3, Monocytes % (Manual) 10, Eosinophils % (Manual) 0, Basophils % (Manual) 0, Band Neutrophils 20, Blood Morphology Comment NORMAL, Prothrombin Time 14.3, INR Comment 1.1, Activated Partial Thromboplast Time 28, Sodium Level 127, Potassium Level 4.4, Chloride Level 87, Carbon Dioxide Level 22, Anion Gap 18, Blood Urea Nitrogen 30, Creatinine 0.87, Estimat Glomerular Filtration Rate > 60, BUN/Creatinine Ratio 34, Glucose Level 350, Calcium Level 9.5, Corrected Calcium 10.1, Magnesium Level 2.0, Total Bilirubin 0.4, Aspartate Amino Transf (AST/SGOT) 20, Alanine Aminotransferase (ALT/SGPT) 20, Alkaline Phosphatase 123, Myoglobin 87.8, Troponin I < 0.30, Pro-B-Type Natriuretic Peptide 398.9, Total Protein 7.2, Albumin 3.3, Lipase 32 10/16/20 13:43: Lactic Acid Level 1.49 10/16/20 14:37: Glucometer 302 10/16/20 16:15: Lab Scanned Report Referred Lab Report 10/16/20 17:35: Glucometer 169 10/16/20 20:03: Glucometer 223 10/17/20 05:00: White Blood Count 22.8, Red Blood Count 4.23, Hemoglobin 13.7, Hematocrit 40, Mean Corpuscular Volume 95, Mean Corpuscular Hemoglobin 32, Mean Corpuscular Hemoglobin Concent 34, Red Cell Distribution Width 11.0, Platelet Count 261, Mean Platelet Volume 10.5, Immature Granulocyte % (Auto) 1, Neutrophils (%) (Auto) 82, Lymphocytes (%) (Auto) 6, Monocytes (%) (Auto) 11, Eosinophils (%) (Auto) 0, Basophils (%) (Auto) 0, Neutrophils # (Auto) 18.7, Lymphocytes # (Auto) 1.4, Monocytes # (Auto) 2.5, Eosinophils # (Auto) 0.0, Basophils # (Auto) 0.0, Immature Granulocyte # (Auto) 0.2, Sodium Level 127, Potassium Level 3.6, Chloride Level 92, Carbon Dioxide Level 20, Anion Gap 15, Blood Urea Nitrogen 20, Creatinine 0.76, Estimat Glomerular Filtration Rate > 60, BUN/Creatinine Ratio 26, Glucose Level 261, Calcium Level 8.3, Corrected Calcium 9.3, Total Bilirubin 0.5, Aspartate Amino Transf (AST/SGOT) 28, Alanine Aminotransferase (ALT/SGPT) 24, Alkaline Phosphatase 100, Total Protein 5.9, Albumin 2.8 10/17/20 11:12: Glucometer 272 10/17/20 15:34: Glucometer 83 10/17/20 20:33: Glucometer 158 10/18/20 05:58: Glucometer 168 10/18/20 08:30: White Blood Count 21.0, Red Blood Count 4.31, Hemoglobin 13.9, Hematocrit 40, Mean Corpuscular Volume 92, Mean Corpuscular Hemoglobin 32, Mean Corpuscular Hemoglobin Concent 35, Red Cell Distribution Width 10.9, Platelet Count 279, Mean Platelet Volume 9.7, Immature Granulocyte % (Auto) 1, Neutrophils (%) (Auto) 82, Lymphocytes (%) (Auto) 7, Monocytes (%) (Auto) 10, Eosinophils (%) (Auto) 0, Basophils (%) (Auto) 0, Neutrophils # (Auto) 17.2, Lymphocytes # (Auto) 1.5, Monocytes # (Auto) 2.1, Eosinophils # (Auto) 0.1, Basophils # (Auto) 0.1, Immature Granulocyte # (Auto) 0.1, Sodium Level 135, Potassium Level 3.3, Chloride Level 97, Carbon Dioxide Level 25, Anion Gap 13, Blood Urea Nitrogen 12, Creatinine 0.64, Estimat Glomerular Filtration Rate > 60, BUN/Creatinine Ratio 19, Glucose Level 200, Calcium Level 8.3 10/18/20 11:32: Glucometer 124 10/18/20 19:58: Glucometer 190 10/19/20 04:35: Sodium Level 137, Potassium Level 3.3, Chloride Level 101, Carbon Dioxide Level 26, Anion Gap 10, Blood Urea Nitrogen 9, Creatinine 0.61, Estimat Glomerular Filtration Rate > 60, BUN/Creatinine Ratio 15, Glucose Level 141, Calcium Level 7.9 10/19/20 04:45: White Blood Count 17.0, Red Blood Count 3.95, Hemoglobin 12.7, Hematocrit 37, Mean Corpuscular Volume 94, Mean Corpuscular Hemoglobin 32, Mean Corpuscular Hemoglobin Concent 34, Red Cell Distribution Width 10.9, Platelet Count 284, Mean Platelet Volume 9.6, Immature Granulocyte % (Auto) 1, Neutrophils (%) (Auto) 75, Lymphocytes (%) (Auto) 11, Monocytes (%) (Auto) 13, Eosinophils (%) (Auto) 0, Basophils (%) (Auto) 0, Neutrophils # (Auto) 12.8, Lymphocytes # (Auto) 1.8, Monocytes # (Auto) 2.1, Eosinophils # (Auto) 0.1, Basophils # (Auto) 0.0, Immature Granulocyte # (Auto) 0.2 10/19/20 11:30: Glucometer 243 10/19/20 15:27: Glucometer 246 10/19/20 20:18: Glucometer 194 10/20/20 05:21: Glucometer 216 10/20/20 11:50: White Blood Count 14.2, Red Blood Count 3.77, Hemoglobin 12.0, Hematocrit 36, Mean Corpuscular Volume 95, Mean Corpuscular Hemoglobin 32, Mean Corpuscular Hemoglobin Concent 34, Red Cell Distribution Width 11.3, Platelet Count 328, Mean Platelet Volume 9.3, Immature Granulocyte % (Auto) 1, Neutrophils (%) (Auto) 72, Lymphocytes (%) (Auto) 12, Monocytes (%) (Auto) 14, Eosinophils (%) (Auto) 0, Basophils (%) (Auto) 0, Neutrophils # (Auto) 10.2, Lymphocytes # (Auto) 1.8, Monocytes # (Auto) 2.0, Eosinophils # (Auto) 0.1, Basophils # (Auto) 0.0, Immature Granulocyte # (Auto) 0.1, Sodium Level 128, Potassium Level 3.8, Chloride Level 92, Carbon Dioxide Level 29, Anion Gap 7, Blood Urea Nitrogen 8, Creatinine 0.70, Estimat Glomerular Filtration Rate > 60, BUN/Creatinine Ratio 11, Glucose Level 238, Calcium Level 7.7, Corrected Calcium 9.0, Total Bilirubin 0.4, Aspartate Amino Transf (AST/SGOT) 28, Alanine Aminotransferase (ALT/SGPT) 24, Alkaline Phosphatase 84, Total Protein 5.3, Albumin 2.4 10/20/20 20:40: Glucometer 213 10/21/20 05:59: Glucometer 113 10/21/20 06:22: White Blood Count 15.5, Red Blood Count 3.73, Hemoglobin 12.0, Hematocrit 36, Mean Corpuscular Volume 96, Mean Corpuscular Hemoglobin 32, Mean Corpuscular Hemoglobin Concent 34, Red Cell Distribution Width 11.2, Platelet Count 350, Mean Platelet Volume 9.1, Immature Granulocyte % (Auto) 1, Neutrophils (%) ( Auto) 75, Lymphocytes (%) (Auto) 13, Monocytes (%) (Auto) 11, Eosinophils (%) (Auto) 1, Basophils (%) (Auto) 0, Neutrophils # (Auto) 11.5, Lymphocytes # (Auto) 2.0, Monocytes # (Auto) 1.7, Eosinophils # (Auto) 0.1, Basophils # (Auto) 0.0, Immature Granulocyte # (Auto) 0.1, Sodium Level 129, Potassium Level 4.0, Chloride Level 92, Carbon Dioxide Level 32, Anion Gap 5, Blood Urea Nitrogen 7, Creatinine 0.62, Estimat Glomerular Filtration Rate > 60, BUN/Creatinine Ratio 11, Glucose Level 107, Calcium Level 7.8, Corrected Calcium 9.0, Total Bilirubin 0.4, Aspartate Amino Transf (AST/SGOT) 30, Alanine Aminotransferase (ALT/SGPT) 24, Alkaline Phosphatase 84, Total Protein 5.6, Albumin 2.5 10/21/20 15:30: Glucometer 205 10/21/20 20:28: Glucometer 189 10/22/20 05:45: White Blood Count 17.7, Red Blood Count 3.77, Hemoglobin 12.0, Hematocrit 36, Mean Corpuscular Volume 97, Mean Corpuscular Hemoglobin 32, Mean Corpuscular Hemoglobin Concent 33, Red Cell Distribution Width 11.2, Platelet Count 408, Mean Platelet Volume 8.9, Immature Granulocyte % (Auto) 1, Neutrophils (%) (Auto) 78, Lymphocytes (%) (Auto) 11, Monocytes (%) (Auto) 9, Eosinophils (%) (Auto) 1, Basophils (%) (Auto) 0, Neutrophils # (Auto) 13.9, Lymphocytes # (Auto) 1.9, Monocytes # (Auto) 1.7, Eosinophils # (Auto) 0.1, Basophils # (Auto) 0.0, Immature Granulocyte # (Auto) 0.1, Neutrophils % (Manual) 76, Lymphocytes % (Manual) 15, Monocytes % (Manual) 6, Band Neutrophils 3, Toxic Granulation 2+, S odium Level 130, Potassium Level 4.8, Chloride Level 90, Carbon Dioxide Level 30, Anion Gap 10, Blood Urea Nitrogen 6, Creatinine 0.67, Estimat Glomerular Filtration Rate > 60, BUN/Creatinine Ratio 9, Glucose Level 171, Calcium Level 8.1, Corrected Calcium 9.2, Total Bilirubin 0.5, Aspartate Amino Transf (AST/SGOT) 29, Alanine Aminotransferase (ALT/SGPT) 24, Alkaline Phosphatase 96, Total Protein 5.9, Albumin 2.6 10/22/20 07:45: Coronavirus 2019 (PARAM) Negative 10/22/20 13:56: Glucometer 190 10/22/20 15:39: Glucometer 183 10/22/20 16:00: Vancomycin Level Trough 7.0 10/22/20 17:33: Glucometer 96 10/22/20 20:18: Glucometer 242 10/23/20 05:41: Glucometer 109 10/23/20 05:45: White Blood Count 14.9, Red Blood Count 3.58, Hemoglobin 11.7, Hematocrit 35, Mean Corpuscular Volume 96, Mean Corpuscular Hemoglobin 33, Mean Corpuscular Hemoglobin Concent 34, Red Cell Distribution Width 11.1, Platelet Count 470, Mean Platelet Volume 8.6, Immature Granulocyte % (Auto) 1, Neutrophils (%) (Auto) 71, Lymphocytes (%) (Auto) 17, Monocytes (%) (Auto) 10, Eosinophils (%) (Auto) 1, Basophils (%) (Auto) 0, Neutrophils # (Auto) 10.6, Lymphocytes # (Auto) 2.6, Monocytes # (Auto) 1.5, Eosinophils # (Auto) 0.1, Basophils # (Auto) 0.0, Immature Granulocyte # (Auto) 0.1, Sodium Level 136, Potassium Level 3.5, Chloride Level 95, Carbon Dioxide Level 29, Anion Gap 12, Blood Urea Nitrogen 5, Creatinine 0.67, Estimat Glomerular Filtration Rate > 60, BUN/Creatinine Ratio 7, Glucose Level 107, Calcium Level 8.1, Corrected Calcium 9.2, Total Bilirubin 0.3, Aspartate Amino Transf (AST/SGOT) 25, Alanine Aminotransferase (ALT/SGPT) 22, Alkaline Phosphatase 83, Total Protein 6.0, Albumin 2.6 10/23/20 15:59: Glucometer 98 10/23/20 20:40: Glucometer 226 10/24/20 04:45: White Blood Count 10.8, Red Blood Count 3.35, Hemoglobin 10.8, Hematocrit 32, Mean Corpuscular Volume 96, Mean Corpuscular Hemoglobin 32, Mean Corpuscular Hemoglobin Concent 34, Red Cell Distribution Width 11.1, Platelet Count 500, Mean Platelet Volume 8.5, Immature Granulocyte % (Auto) 1, Neutrophils (%) (Auto) 65, Lymphocytes (%) (Auto) 23, Monocytes (%) (Auto) 10, Eosinophils (%) (Auto) 1, Basophils (%) (Auto) 0, Neutrophils # (Auto) 7.0, Lymphocytes # (Auto) 2.5, Monocytes # (Auto) 1.1, Eosinophils # (Auto) 0.1, Basophils # (Auto) 0.0, Immature Granulocyte # (Auto) 0.1, Sodium Level 134, Potassium Level 3.9, Chloride Level 96, Carbon Dioxide Level 30, Anion Gap 8, Blood Urea Nitrogen 4, Creatinine 0.68, Estimat Glomerular Filtration Rate > 60, BUN/Creatinine Ratio 6, Glucose Level 83, Calcium Level 8.1, Corrected Calcium 9.2, Total Bilirubin 0.3, Aspartate Amino Transf (AST/SGOT) 27, Alanine Aminotransferase (ALT/SGPT) 23, Alkaline Phosphatase 75, Total Protein 6.0, Albumin 2.6, Vancomycin Level Trough 14.0 10/24/20 11:57: Glucometer 81 10/24/20 16:28: Glucometer 139 10/24/20 20:53: Glucometer 229 10/25/20 05:25: Glucometer 83 10/25/20 07:00: White Blood Count 8.7, Red Blood Count 3.32, Hemoglobin 10.6, Hematocrit 33, Mean Corpuscular Volume 98, Mean Corpuscular Hemoglobin 32, Mean Corpuscular Hemoglobin Concent 33, Red Cell Distribution Width 11.2, Platelet Count 482, Mean Platelet Volume 8.4, Sodium Level 136, Potassium Level 4.3, Chloride Level 97, Carbon Dioxide Level 31, Anion Gap 8, Blood Urea Nitrogen 4, Creatinine 0.66, Estimat Glomerular Filtration Rate > 60, BUN/Creatinine Ratio 6, Glucose Level 96, Calcium Level 8.4, Corrected Calcium 9.4, Total Bilirubin 0.3, Aspartate Amino Transf (AST/SGOT) 30, Alanine Aminotransferase (ALT/SGPT) 22, Alkaline Phosphatase 68, Total Protein 6.3, Albumin 2.7 10/25/20 11:04: Glucometer 73 10/25/20 15:54: Glucometer 97 10/25/20 20:16: Glucometer 206 10/26/20 05:59: White Blood Count 9.5, Red Blood Count 3.71, Hemoglobin 11.8, Hematocrit 36, Mean Corpuscular Volume 98, Mean Corpuscular Hemoglobin 32, Mean Corpuscular Hemoglobin Concent 33, Red Cell Distribution Width 11.3, Platelet Count 672, Mean Platelet Volume 8.6, Immature Granulocyte % (Auto) 1, Neutrophils (%) (Auto) 66, Lymphocytes (%) (Auto) 23, Monocytes (%) (Auto) 9, Eosinophils (%) (Auto) 1, Basophils (%) (Auto) 0, Neutrophils # (Auto) 6.2, Lymphocytes # (Auto) 2.2, Monocytes # (Auto) 0.9, Eosinophils # (Auto) 0.1, Basophils # (Auto) 0.0, Immature Granulocyte # (Auto) 0.1, Sodium Level 136, Potassium Level 4.6, Chloride Level 96, Carbon Dioxide Level 31, Anion Gap 9, Blood Urea Nitrogen 6, Creatinine 0.74, Estimat Glomerular Filtration Rate > 60, BUN/Creatinine Ratio 8, Glucose Level 103, Mean Blood Glucose 278, Hemoglobin A1c 11.3, Calcium Level 9.1, Corrected Calcium 9.9, Total Bilirubin 0.4, Aspartate Amino Transf (AST/SGOT) 35, Alanine Aminotransferase (ALT/SGPT) 25, Alkaline Phosphatase 79, Total Protein 7.2, Albumin 3.0 10/26/20 11:28: Glucometer 258 10/26/20 17:02: Glucometer 161 10/26/20 20:52: Glucometer 238 10/27/20 05:25: White Blood Count 9.9, Red Blood Count 3.74, Hemoglobin 11.9, Hematocrit 36, Mean Corpuscular Volume 96, Mean Corpuscular Hemoglobin 32, Mean Corpuscular Hemoglobin Concent 33, Red Cell Distribution Width 11.2, Platelet Count 581, Mean Platelet Volume 8.4, Immature Granulocyte % (Auto) 1, Neutrophils (%) (Auto) 64, Lymphocytes (%) (Auto) 25, Monocytes (%) (Auto) 9, Eosinophils (%) (Auto) 1, Basophils (%) (Auto) 0, Neutrophils # (Auto) 6.3, Lymphocytes # (Auto) 2.5, Monocytes # (Auto) 0.9, Eosinophils # (Auto) 0.1, Basophils # (Auto) 0.0, Immature Granulocyte # (Auto) 0.1 10/27/20 05:31: Glucometer 91 10/27/20 11:25: Glucometer 163 10/27/20 15:26: Glucometer 372 10/27/20 20:22: Glucometer 56 10/28/20 05:43: White Blood Count 9.2, Red Blood Count 3.59, Hemoglobin 11.3, Hematocrit 35, Mean Corpuscular Volume 96, Mean Corpuscular Hemoglobin 32, Mean Corpuscular Hemoglobin Concent 33, Red Cell Distribution Width 11.4, Platelet Count 583, Mean Platelet Volume 8.5, Immature Granulocyte % (Auto) 1, Neutrophils (%) (Auto) 60, Lymphocytes (%) (Auto) 31, Monocytes (%) (Auto) 7, Eosinophils (%) (Auto) 2, Basophils (%) (Auto) 1, Neutrophils # (Auto) 5.5, Lymphocytes # (Auto) 2.9, Monocytes # (Auto) 0.7, Eosinophils # (Auto) 0.1, Basophils # (Auto) 0.1, Immature Granulocyte # (Auto) 0.1, Sodium Level 133, Potassium Level 4.7, Chloride Level 96, Carbon Dioxide Level 25, Anion Gap 12, Blood Urea Nitrogen 12, Creatinine 0.69, Estimat Glomerular Filtration Rate > 60, BUN/Creatinine Ratio 17, Glucose Level 194, Calcium Level 8.8 10/28/20 11:05: Glucometer 108 10/28/20 15:40: Glucometer 193 10/28/20 19:44: Glucometer 229 10/29/20 05:18: Glucometer 128 10/29/20 06:45: White Blood Count 9.1, Red Blood Count 3.42, Hemoglobin 10.9, Hematocrit 33, Mean Corpuscular Volume 96, Mean Corpuscular Hemoglobin 32, Mean Corpuscular Hemoglobin Concent 33, Red Cell Distribution Width 11.4, Platelet Count 594, Mean Platelet Volume 8.4, Sodium Level 134, Potassium Level 4.5, Chloride Level 96, Carbon Dioxide Level 30, Anion Gap 8, Blood Urea Nitrogen 14, Creatinine 0.74, Estimat Glomerular Filtration Rate > 60, BUN/Creatinine Ratio 19, Glucose Level 148, Calcium Level 9.0, Corrected Calcium 9.7, Total Bilirubin 0.3, Aspartate Amino Transf (AST/SGOT) 35, Alanine Aminotransferase (ALT/SGPT) 23, Alkaline Phosphatase 71, Total Protein 7.1, Albumin 3.1 10/29/20 11:11: Glucometer 319 10/29/20 16:17: Glucometer 197 10/29/20 21:58: Glucometer 254 10/30/20 06:05: Glucometer 241 10/30/20 11:14: Glucometer 102 10/30/20 16:10: Glucometer 205 10/30/20 21:10: Glucometer 198 10/31/20 05:31: Glucometer 146 10/31/20 07:41: White Blood Count 9.1, Red Blood Count 3.50, Hemoglobin 11.1, Hematocrit 34, Mean Corpuscular Volume 97, Mean Corpuscular Hemoglobin 32, Mean Corpuscular Hemoglobin Concent 33, Red Cell Distribution Width 11.4, Platelet Count 608, Mean Platelet Volume 8.8, Sodium Level 134, Potassium Level 4.2, Chloride Level 94, Carbon Dioxide Level 31, Anion Gap 9, Blood Urea Nitrogen 17, Creatinine 0.71, Estimat Glomerular Filtration Rate > 60, BUN/Creatinine Ratio 24, Glucose Level 125, Calcium Level 9.0, Corrected Calcium 9.6, Total Bilirubin 0.3, Aspartate Amino Transf (AST/SGOT) 31, Alanine Aminotransferase (ALT/SGPT) 25, Alkaline Phosphatase 72, Total Protein 7.4, Albumin 3.3 10/31/20 11:02: Glucometer 139 10/31/20 16:03: Glucometer 220 10/31/20 20:51: Glucometer 231 11/01/20 05:26: Glucometer 227 11/01/20 11:32: Glucometer 83 11/01/20 15:36: Glucometer 288 11/01/20 20:48: Glucometer 337 11/02/20 06:01: Glucometer 184 11/02/20 06:50: White Blood Count 7.3, Red Blood Count 3.47, Hemoglobin 11.0, Hematocrit 33, Mean Corpuscular Volume 96, Mean Corpuscular Hemoglobin 32, Mean Corpuscular Hemoglobin Concent 33, Red Cell Distribution Width 11.3, Platelet Count 536, Mean Platelet Volume 8.8, Immature Granulocyte % (Auto) 0, Neutrophils (%) (Auto) 47, Lymphocytes (%) (Auto) 40, Monocytes (%) (Auto) 10, Eosinophils (%) (Auto) 2, Basophils (%) (Auto) 1, Neutrophils # (Auto) 3.4, Lymphocytes # (Auto) 2.9, Monocytes # (Auto) 0.7, Eosinophils # (Auto) 0.2, Basophils # (Auto) 0.1, Immature Granulocyte # (Auto) 0.0, Sodium Level 135, Potassium Level 4.4, Chloride Level 95, Carbon Dioxide Level 33, Anion Gap 7, Blood Urea Nitrogen 16, Creatinine 0.78, Estimat Glomerular Filtration Rate > 60, BUN/Creatinine Ratio 21, Glucose Level 177, Calcium Level 9.5, Corrected Calcium 10.0, Total Bilirubin 0.2, Aspartate Amino Transf (AST/SGOT) 34, Alanine Aminotransferase (ALT/SGPT) 24, Alkaline Phosphatase 75, Total Protein 7.5, Albumin 3.4 11/02/20 10:56: Glucometer 96 11/02/20 15:52: Glucometer 195 11/02/20 20:48: Glucometer 165 11/03/20 04:12: White Blood Count 7.6, Red Blood Count 3.64, Hemoglobin 11.4, Hematocrit 35, Mean Corpuscular Volume 97, Mean Corpuscular Hemoglobin 31, Mean Corpuscular Hemoglobin Concent 32, Red Cell Distribution Width 11.3, Platelet Count 515, Mean Platelet Volume 8.8, Immature Granulocyte % (Auto) 0, Neutrophils (%) (A uto) 45, Lymphocytes (%) (Auto) 43, Monocytes (%) (Auto) 9, Eosinophils (%) (Auto) 2, Basophils (%) (Auto) 1, Neutrophils # (Auto) 3.4, Lymphocytes # (Auto) 3.3, Monocytes # (Auto) 0.7, Eosinophils # (Auto) 0.2, Basophils # (Auto) 0.0, Immature Granulocyte # (Auto) 0.0, Sodium Level 137, Potassium Level 4.3, Chloride Level 95, Carbon Dioxide Level 35, Anion Gap 7, Blood Urea Nitrogen 15, Creatinine 0.73, Estimat Glomerular Filtration Rate > 60, BUN/Creatinine Ratio 21, Glucose Level 110, Calcium Level 9.5, Corrected Calcium 10.0, Total Bilirubin 0.2, Aspartate Amino Transf (AST/SGOT) 37, Alanine Aminotransferase (ALT/SGPT) 28, Alkaline Phosphatase 74, Total Protein 7.6, Albumin 3.4 11/03/20 05:14: Glucometer 102 11/03/20 11:05: Glucometer 288 11/03/20 15:34: Glucometer 30 11/03/20 16:09: Glucometer 62 11/03/20 20:11: Glucometer 339 11/04/20 04:59: Glucometer 240 11/04/20 11:24: Glucometer 242 11/04/20 15:17: Glucometer 101 11/04/20 20:49: Glucometer 258 11/05/20 05:48: Glucometer 148 11/05/20 10:38: Glucometer 234 11/05/20 14:45: Glucometer 46 11/05/20 15:02: Glucometer 95 11/05/20 15:38: Glucometer 158 11/05/20 20:17: Glucometer 308 11/06/20 04:55: White Blood Count 9.9, Red Blood Count 3.63, Hemoglobin 11.4, Hematocrit 35, Mean Corpuscular Volume 96, Mean Corpuscular Hemoglobin 31, Mean Corpuscular Hemoglobin Concent 33, Red Cell Distribution Width 11.4, Platelet Count 519, Mean Platelet Volume 9.5, Immature Granulocyte % (Auto) 0, Neutrophils (%) (Auto) 58, Lymphocytes (%) (Auto) 33, Monocytes (%) (Auto) 8, Eosinophils (%) (Auto) 1, Basophils (%) (Auto) 1, Neutrophils # (Auto) 5.7, Lymphocytes # (Auto) 3.3, Monocytes # (Auto) 0.8, Eosinophils # (Auto) 0.1, Basophils # (Auto) 0.1, I mmature Granulocyte # (Auto) 0.0, Sodium Level 133, Potassium Level 4.4, Chloride Level 96, Carbon Dioxide Level 27, Anion Gap 10, Blood Urea Nitrogen 17, Creatinine 0.76, Estimat Glomerular Filtration Rate > 60, BUN/Creatinine Ratio 22, Glucose Level 250, Calcium Level 9.1, Corrected Calcium 9.4, Total Bilirubin 0.2, Aspartate Amino Transf (AST/SGOT) 39, Alanine Aminotransferase ( ALT/SGPT) 36, Alkaline Phosphatase 70, Total Protein 7.5, Albumin 3.6 11/06/20 10:38: Glucometer 242 11/06/20 15:45: Glucometer 177 11/06/20 21:06: Glucometer 134 11/07/20 06:11: Glucometer 186 11/07/20 11:39: Glucometer 156 11/07/20 16:00: Glucometer 180 11/07/20 20:05: Glucometer 307 11/08/20 05:43: Glucometer 253 11/08/20 10:27: Glucometer 226 11/08/20 15:57: Glucometer 149 11/08/20 20:06: Glucometer 266 11/09/20 05:36: Glucometer 161 11/09/20 10:49: Glucometer 157 Discharge Home Medications: Active Scripts Active Vistaril (Hydroxyzine Pamoate) 25 Mg Capsule 25 Mg PO DAILY Diflucan (Fluconazole) 10 Mg/1 Ml Susp.recon 10 Mg PO UD take 2 tablets today 11/09/20 and then 1 tablet daily Clotrimazole-Betamethasone Crm (Clotrimazole/Betamethasone Dip) 15 Gm Cream..g. 1 Applic TP BID Cefdinir 300 Mg Capsule 300 Mg PO BID Easy Comfort Pen Needle (Pen Needle, Diabetic) 1 Each Dis.needle Each MC BID Levemir Flextouch (Insulin Detemir) 100 Unit/1 Ml Insuln.pen 10 Unit SQ BID Senna-Time S Tablet (Sennosides/Docusate Sodium) 1 Each Tablet 1 Ea PO BID Percocet 10-325 mg Tablet (Oxycodone HCl/Acetaminophen) 1 Each Tablet 1 Tab PO Q6H PRN Instructions to patient/family Please see electronic discharge instructions given to patient. Clinical Quality Measures AMI/AHF: ASA po Prior to arrival: No DVT/VTE Risk/Contraindication: Risk Factor Score Per Nursin RFS Level Per Nursing on Admit: 4+=Very High LORNA FARMER DO Nov 09, 2020 09:09
[2020-11-09] MEDS: HYDROmorphone 2 MG/ML VIAL (DILAUDID) IV PRN ×2 (09:14→10:23)
--- NOTE | 2020-11-09 10:00 | NUR ---
dr parsons informed of rash around wound and gave telephon order. dr. parsons gave telephone order for lotrisone cream 1/0.5% bid qty 1, refill 1 diflucan 10mg po daily qty 15 (take 2 today then 1 daily) refil 1 vistaril 25mg po daily qty 90 refill 1
[2020-11-09] MEDS ORDERED: CLOT15CR6 TP (10:31)
[2020-11-09] MEDS ORDERED: HYDR25CA PO (10:31)
[2020-11-09] MEDS ORDERED: FLUC10SU PO (10:31)
--- NOTE | 2020-11-09 11:00 | NUR ---
patient at this time in hallway ready to leave and this rn informed needed to go over discharged package. patient stated he knows everything and just wants to sign paperwork. patient then complains that we took his cigarettes since this rn couldn't find them in drawer. this rn worked last Monday and visualized cigarettes and driver material handler locked in electric engine mechanic room 410. patient informed he has had his driver material handler for last week and that the nurse (she) took his cigarettes and locked them up somewhere else. he stated it was nurse from yesterday and the weekend. this rn phoned [facility] registration and they don't have them in safe, looked in med room lock up cabinet and they are not in there. patient insisted on walking down with our walker and refused wheelchair and ehsan rios took cart of patient's belongings and wound care supplies to outpatient entrance, patient insisted on going down to smoke and this rn informed that once he left the building he would not be able to come back in due to covid and asked if he could wait until his ride arrived and he stated he just needs to smoke. ehsan rios stated patient told her he was taking the walker and this rn asked he was picking his up at [facility] prior to leaving floor and he stated yes. this rn informed once left building he was unable to keep walker and informed he should wait for his ride. per ehsan rios patient called her a dirty fat bitch and that we stole his cigarettes. ehsan rios asked patient what he wanted done with his supplies and he stated that he didn't give a shit where she left them. ehsan rios left supplies on bench/chair and informed patient they where there. ehsan rios informed that patient was angry and walked off heading towards [facility]. this rn informed jennifer castillo, corn detasseler machine operator. at 1150 jennifer castillo, corn detasseler machine operator informed patient is inside outpatient entrance with supplies waiting for ride.
[2020-11-09 11:20] VITALS: BP 127/76
--- NOTE | 2020-11-09 13:49 | NUR ---
CM/SS finalized discharge. Plan: Patient discharged today with home health, walker and wound vac. Home Health: CM/SS contacted the agency and spoke with Ivet to inform her of patient's discharge. She verbalized understanding. DME: CM/SS verified with the patient that his preference is to vegetable picker the walker on his way home. Diabetic Supplies: CM/SS provided the patient with a bag of diabetic supplies due to finances. The patient has not had diabetic supplies for many years. Wound care also provided patient with supplies for home use. No further needs.
== END 2020-11-09 11:20 | disposition home health service (06) | DRG 579 ==
LOC: EDUNIT# 11:47 → ER FS 11:48 → 4TH 16:15
PROVIDERS: ADMIT Internal Medicine; ATTEND Internal Medicine
PROC: 0KBS0ZZ Excision of Right Lower Leg Muscle, Open Approach (ICD-10-PCS; principal; 2020-10-22 09:29)
DX: L03.115 Cellulitis of right lower limb (principal); M72.6 Necrotizing fasciitis; I42.9 Cardiomyopathy, unspecified; I50.20 Unspecified systolic (congestive) heart failure; M94.0 Chondrocostal junction syndrome [Tietze]; E11.65 Type 2 diabetes mellitus with hyperglycemia; E11.649 Type 2 diabetes mellitus with hypoglycemia without coma; Z91.19 Patient's noncompliance with other medical treatment and regimen; Z20.822 Contact with and (suspected) exposure to COVID-19; B19.20 Unspecified viral hepatitis C without hepatic coma; I48.91 Unspecified atrial fibrillation; F17.210 Nicotine dependence, cigarettes, uncomplicated; J44.9 Chronic obstructive pulmonary disease, unspecified; E87.6 Hypokalemia; F12.90 Cannabis use, unspecified, uncomplicated; F41.9 Anxiety disorder, unspecified; L73.2 Hidradenitis suppurativa; I25.2 Old myocardial infarction; Z79.4 Long term (current) use of insulin; Z79.899 Other long term (current) drug therapy; Z88.0 Allergy status to penicillin
CPT/HCPCS: 36415; 71045; 71275; 73560; 76881; 76937; 80048; 80053; 80202; 82962; 83036; 83605; 83690; 83735; 83874; 83880; 84484; 85007; 85025; 85027; 85610; 85730; 87040; 87070; 87075; 87077; 87081; 87186; 87205; 87635; 88304; 93005; 96372; 96374; 96375

== ENCOUNTER → 2020-11-11 | Outpatient (CLI) | payer MEDICAID ==
[~2020-11-11] MED LIST changes: +CEFD300C3 PO; +CLOT15CR6 TP; +FLUC10SU PO; +HYDR25CA PO; +INSU100I29 SQ; +OXYC1TAB12 PO; +SENN-20 PO; +[UNRECOGNIZED DRUG - CODE] MC
== END ==
LOC: WOUNDCARE 11:42
PROVIDERS: ATTEND Surgery
DX: L97.113 Non-pressure chronic ulcer of right thigh with necrosis of muscle (principal); M72.6 Necrotizing fasciitis; E11.622 Type 2 diabetes mellitus with other skin ulcer; M24.561 Contracture, right knee
CPT/HCPCS: 99215

== ENCOUNTER 2020-11-12 17:36 | Emergency (ER) | payer MEDICAID ==
[~2020-11-12] VITALS: Ht 193 cm; Wt 81.6 kg
[2020-11-12] MEDS ORDERED: LORazepam INJ 2 MG/ML (ATIVAN) VIAL IM STA (17:50)
[2020-11-12] MEDS ORDERED: HYDROmorphone 2 MG/ML VIAL (DILAUDID) IM STA (17:50)
--- NOTE | 2020-11-12 17:53 | ED Lower Extremity ---
General Chief Complaint: General Problems/Pain Stated Complaint: RT LEG PAIN Source: patient, old records History of Present Illness Date Seen by Provider: Nov 12, 2020 Time Seen by Provider: 17:40 Initial Comments 50 yo male presenting with right leg pain worse since changing his dressing tonight. He had been discharged from the hospital this week and they did a dressing change prior to discharge. Today was the first dressing change she did on his own. When he did the dressing change and she was not having pain then did not take any pain medicine prior to doing that change. After the dressing change he has severe burning sensation and increased pain. He does have oxycodone at home for pain but again did not take any of that yet. he denies any new trauma or injury to the leg. There is an open wound from him being treated for necrotizing fasciitis. There is no new drainage or fever or chills. Allergies and Home Medications Allergies Coded Allergies: Penicillins (Unverified Adverse Reaction, Unknown, 07/22/19) Home Medications Cefdinir 300 Mg Capsule, 300 MG PO BID Prescribed by: LORNA FARMER on 11/05/20 1135 Clotrimazole/Betamethasone Dip 15 Gm Cream..g., 1 APPLIC TP BID Prescribed by: LEONEL LAYTON on 11/09/20 1031 Fluconazole 10 Mg/1 Ml Susp.recon, 10 MG PO UD take 2 tablets today 11/09/20 and then 1 tablet daily Prescribed by: LEONEL LAYTON on 11/09/20 1031 Hydroxyzine Pamoate 25 Mg Capsule, 25 MG PO DAILY Prescribed by: LEONEL LAYTON on 11/09/20 1031 Insulin Detemir 100 Unit/1 Ml Insuln.pen, 10 UNIT SQ BID Prescribed by: LORNA FARMER on 11/05/20 1130 Oxycodone HCl/Acetaminophen 1 Each Tablet, 1 TAB PO Q6H PRN for PAIN-MODERATE (5-7) Prescribed by: LORNA FARMER on 11/05/20 1130 Sennosides/Docusate Sodium 1 Each Tablet, 1 EA PO BID Prescribed by: LORNA FARMER on 11/05/20 1130 Patient Home Medication List Home Medication List Reviewed: Yes Review of Systems Constitutional: see HPI Respiratory: no symptoms reported Cardiovascular: no symptoms reported Gastrointestinal: no symptoms reported Musculoskeletal: see HPI Skin: see HPI Psychiatric/Neurological: Anxiety Past Ftictgt-Sanedb-Dknxfq Hx Past Med/Social Hx: Reviewed Nursing Past Med/Soc Hx Patient Social History Drug of Choice: "Gipsy", hx Meth on UDS Type Used: Cigarettes 2nd Hand Smoke Exposure: Yes Recent Foreign Travel: No Contact w/Someone Who Travel: No Recent Hopitalizations: Yes Seasonal Allergies Seasonal Allergies: No Past Medical History Surgeries: Yes (UGI, ? Heart Surgery per prior hx family) Cardiac Respiratory: Yes (Tobaccoism 2ppd) COPD Currently Using CPAP: No Currently Using BIPAP: No Cardiac: Yes (heart surgery at 16mo for hole in heart; MD 4 months ago, Systolic CHF) Atrial Fibrillation, Cardiomyopathy, Heart Attack, Irregular Heartbeat Neurological: No Genitourinary: No Gastrointestinal: Yes (Gastritis, Duodenitis, frequent alcohol intake, Hep C) Hepatitis Musculoskeletal: No Endocrine: Yes (Refuses to monitor blood sugar and to use insulin) Diabetes, Insulin dep HEENT: No Cancer: No Psychosocial: Yes (polysubstance abuse ) Anxiety Integumentary: Yes (Hidradenitis Suppurative, frequent abscesses) Blood Disorders: Yes (Hep C+) Family Medical History No Pertinent Family Hx Physical Exam Vital Signs Vital Signs - First Documented 11/12/20 17:40 Temp 37.9 Pulse 110 Resp 24 B/P (MAP) 134/64 (87) Pulse Ox 98 O2 Delivery Room Air Capillary Refill : Height, Weight, BMI Height: '" Weight: 192lbs. 4.0oz. 87.726784lw; 20.00 BMI Method: General Appearance: severe distress (patient is moaning and crying out complaining of pain in his leg) Cardiovascular: normal peripheral pulses, tachycardia Legs: right leg pain, right leg soft tissue tenderness (open wound with packing in place to the right lower extremity) Neurologic/Psychiatric: alert, oriented x 3, other (anxious) Skin: warm/dry Procedures/Interventions Date of ETT Placement: Jul 23, 2019 Time of ETT Placement: 545 Progress/Results/Core Measures Results/Orders My Orders Orders - ALYSIA GERARD MD Hydromorphone Injection (Dilaudid Inject (11/12/20 17:50) Lorazepam Injection (Ativan Injection) (11/12/20 17:50) Wound Dressing-Ed (1/7/21 17:52) Vital Signs/I&O 11/12/20 11/12/20 17:40 18:35 Temp 37.9 37.9 Pulse 110 97 Resp 24 22 B/P (MAP) 134/64 (87) 132/82 (87) Pulse Ox 98 98 O2 Delivery Room Air Room Air Progress Progress Note : Progress Note with no new injury and no new drainage from the wound that he likely still just has pain from doing the dressing change without taking any pain medicine prior t o working with the wound. Since he is taking oxycodone at home already Will give Dilaudid and Ativan both IM here to try and calm his pain down. Additional packing was placed to help with covering the wound. There was some open area where tissue could be seen. The additional packing was placed with just sterile saline applied since Dakin's solution is not available here. Advised if he has more trouble or not able to manage wound at home the next step would be alf or home health if he can not manage this at home. Departure Impression Primary Impression: Right leg pain Additional Impression: Open wound of right lower leg Qualified Codes: S81.801A - Unspecified open wound, right lower leg, initial encounter Disposition: HOME, SELF-CARE Condition: Stable Departure-Patient Inst. Decision time for Depature: 18:25 Referrals: [facility] (PCP) Primary Care Physician HYACINTH NUNEZ APRN (Family) Primary Care Physician Patient Instructions: Wound Care ED Add. Discharge Instructions: Make sure to take pain medicine 30 minutes to an hour prior to doing a dressing change. This can help prevent you from having severe pain when you do the dressing changes. All discharge instructions reviewed with patient and/or family. Voiced understanding. ALYSIA GERARD MD Nov 12, 2020 17:53
[2020-11-12 18:35] VITALS: BP 132/82
== END 2020-11-12 18:35 | disposition home or self-care (01) ==
LOC: EDUNIT# 17:36 → ER FS 17:37
DX: S81.801A Unspecified open wound, right lower leg, initial encounter (principal); E11.9 Type 2 diabetes mellitus without complications; F41.9 Anxiety disorder, unspecified; Z88.0 Allergy status to penicillin; Z79.4 Long term (current) use of insulin; X58.XXXA Exposure to other specified factors, initial encounter
CPT/HCPCS: 99284

== ENCOUNTER → 2020-11-18 | Outpatient (CLI) | payer MEDICAID | LOC: WOUNDCARE 15:14 | PROVIDERS: ATTEND Orthopaedic Surgery Hand Surgery | DX: E11.622 Type 2 diabetes mellitus with other skin ulcer (principal); I96 Gangrene, not elsewhere classified; L97.114 Non-pressure chronic ulcer of right thigh with necrosis of bone; M72.6 Necrotizing fasciitis; M24.561 Contracture, right knee | CPT/HCPCS: 11042 ==

== ENCOUNTER → 2020-11-25 | Outpatient (CLI) | payer MEDICAID | LOC: WOUNDCARE 14:34 | PROVIDERS: ATTEND Surgery | DX: L97.113 Non-pressure chronic ulcer of right thigh with necrosis of muscle (principal); M72.6 Necrotizing fasciitis; E11.622 Type 2 diabetes mellitus with other skin ulcer; M24.561 Contracture, right knee; E11.52 Type 2 diabetes mellitus with diabetic peripheral angiopathy with gangrene | CPT/HCPCS: 99213 ==

== ENCOUNTER → 2020-12-03 | Outpatient (CLI) | payer MEDICAID | LOC: WOUNDCARE 14:23 | PROVIDERS: ATTEND Surgery | DX: E11.52 Type 2 diabetes mellitus with diabetic peripheral angiopathy with gangrene (principal); I96 Gangrene, not elsewhere classified; E11.622 Type 2 diabetes mellitus with other skin ulcer; L97.113 Non-pressure chronic ulcer of right thigh with necrosis of muscle; M72.6 Necrotizing fasciitis; M24.561 Contracture, right knee | CPT/HCPCS: 99213 ==

== ENCOUNTER → 2020-12-09 | Outpatient (CLI) | payer MEDICAID | LOC: WOUNDCARE 14:36 | PROVIDERS: ATTEND Surgery | DX: E11.622 Type 2 diabetes mellitus with other skin ulcer (principal); L97.113 Non-pressure chronic ulcer of right thigh with necrosis of muscle; I96 Gangrene, not elsewhere classified; M72.6 Necrotizing fasciitis; M24.561 Contracture, right knee | CPT/HCPCS: 11042; 11045 ==

== ENCOUNTER → 2020-12-16 | Outpatient (CLI) | payer MEDICAID | LOC: WOUNDCARE 14:41 | PROVIDERS: ATTEND Surgery | DX: L97.113 Non-pressure chronic ulcer of right thigh with necrosis of muscle (principal); M72.6 Necrotizing fasciitis; E11.622 Type 2 diabetes mellitus with other skin ulcer; M24.561 Contracture, right knee; L92.8 Other granulomatous disorders of the skin and subcutaneous tissue | CPT/HCPCS: 11042 ==

== ENCOUNTER 2020-12-25 05:32 | Outpatient (RCR) | payer MEDICAID ==
[~2020-12-25] VITALS: Ht 193 cm; Wt 81.6 kg
== END 2020-12-25 12:09 | disposition home or self-care (01) ==
LOC: PREOP 05:32
PROVIDERS: ATTEND Surgery
DX: Z01.818 Encounter for other preprocedural examination (principal)

== ENCOUNTER → 2020-12-25 | Outpatient (CLI) | payer MEDICAID ==
[~2020-12-25] MED LIST changes: +INSU100V5 SQ
== END ==
LOC: LAB FS 09:20
PROVIDERS: ATTEND Surgery
DX: Z01.812 Encounter for preprocedural laboratory examination (principal); Z20.822 Contact with and (suspected) exposure to COVID-19
CPT/HCPCS: 87635

== ENCOUNTER 2020-12-29 10:49 | Inpatient (IN) | payer MEDICAID ==
[2020-12-29] VITALS (8 sets, daily range): BP systolic 113–139; BP diastolic 65–96
[~2020-12-29] VITALS: Ht 193 cm; Wt 87.2 kg
[2020-12-29 11:23] LABS: AMPHETAMINE SCREEN, URINE NEGATIVE (NEGATIVE); BARBITURATE SCREEN URINE NEGATIVE (NEGATIVE); BENZODIAZEPINES SCREEN URINE NEGATIVE (NEGATIVE); CANNABINOID SCREEN, URINE POSITIVE (NEGATIVE); COCAINE SCREEN URINE NEGATIVE (NEGATIVE); METHADONE STAT NEGATIVE (NEGATIVE); METHAMPHETAMINE SCREEN URINE S NEGATIVE (NEGATIVE); OPIATE SCREEN URINE NEGATIVE (NEGATIVE); OXYCODONE STAT NEGATIVE (NEGATIVE); PROPOXYPHENE STAT NEGATIVE (NEGATIVE); TRICYCLIC ANTIDEPRESSANTS SCRE NEGATIVE (NEGATIVE)
[2020-12-29] MEDS ORDERED: CLINDAMYCIN 600 MG/50 ML IVPB 50 ML IV ONE (11:30)
[2020-12-29] MEDS ORDERED: ROCURONIUM 10 MG/ML 5 ML SYRINGE IV ONE (11:38)
[2020-12-29] MEDS ORDERED: ONDANSETRON 4 MG/2 ML (SDV) Z0FRAN ONE (11:38)
[2020-12-29] MEDS ORDERED: proPOfol 200 MG/20 ML (DIPRIVAN) VIAL IV ONE (11:38)
[2020-12-29] MEDS ORDERED: LIDOCAINE PF 2% 5 ML (XYLOCAINE) VIAL ONE (11:38)
[2020-12-29] MEDS ORDERED: MIDAZOLAM 2 MG/2 ML (VERSED) VIAL ONE (11:39)
[2020-12-29] MEDS ORDERED: fentaNYL INJECTION 100 MCG/2 ML AMP ONE (11:39)
[2020-12-29] MEDS ORDERED: GLYCOPYRROLATE 0.2 MG/ML (ROBINUL) 2 ML VIAL ONE (11:43)
[2020-12-29] MEDS ORDERED: NEOSTIGMINE 3 MG/3 ML VIAL ONE (11:43)
[2020-12-29] MEDS ORDERED: SEVOFLURANE (ULTANE) 15 ML INHAL SOLN ONE ×3 (11:43→13:20)
[2020-12-29] MEDS ORDERED: inSUlin ASPART (NovoLOG) 1 UNIT/0.01 ML (CHARGE PER UNIT) IV ONE (11:45)
[2020-12-29] MEDS: LACTATED RINGERS 1,000 ML IV PRN ×2 (11:52→14:09)
--- NOTE | 2020-12-29 12:34 | Progress Note-Pre Operative ---
Pre-Operative Progress Note H&P Reviewed The H&P was reviewed, patient examined and no changes noted. Date Seen by Provider: Dec 29, 2020 Time Seen by Provider: 12:00 Date H&P Reviewed: Dec 29, 2020 Time H&P Reviewed: 12:00 Pre-Operative Diagnosis: right lower ext necrosis SONJA GODWIN MD Dec 29, 2020 12:34
[2020-12-29] MEDS ORDERED: morphine INJ 10 MG/ML 1ML (SYR OR VIAL) IVP PRN ×2 (12:45)
[2020-12-29] MEDS ORDERED: ACETAMINOPHEN 325 MG TABLET PO PRN (12:45)
[2020-12-29] MEDS ORDERED: PHENYLEPHRINE 100 MCG/ML 10 ML (ANESTHESIA) SYR ONE (13:03)
[2020-12-29] MEDS ORDERED: LIDOCAINE/EPI 1%-1:100,000 (XYLOCAINE) 50 ML ONE (13:05)
--- NOTE | 2020-12-29 13:38 | Progress Note-Post Operative ---
Post-Operative Progess Note Surgeon (s)/Trimmer Operator (s) Surgeon SONJA GODWIN MD Trimmer Operator: none Pre-Operative Diagnosis right lower ext necrosis Post-Operative Diagnosis same Procedure & Operative Findings Date of Procedure 12/29/20 Procedure Performed/Findings same encompassing skin and subucutaneous tissue(40x2cm) Anesthesia Type get with local Estimated Blood Loss Estimated blood loss (mL): minimal Specimens/Packing Specimens Removed none SONJA GODWIN MD Dec 29, 2020 13:38
--- NOTE | 2020-12-29 13:55 | Anesthesia-General Post-Op ---
General Patient Condition Mental Status/LOC: Same as Preop Cardiovascular: Satisfactory Nausea/Vomiting: Absent Respiratory: Satisfactory Pain: Controlled Complications: Absent Post Op Complications Complications None Follow Up Care/Instructions Patient Instructions None needed. Anesthesia/Patient Condition Patient Condition Patient is doing well, no complaints, stable vital signs, no apparent adverse anesthesia problems. No complications reported per nursing. D/C home per [facility] Criteria: JOSHUA Marie CRNA Dec 29, 2020 13:55
[2020-12-29] MEDS ORDERED: HYDROmorphone 2 MG/ML VIAL (DILAUDID) IV ONE (14:00)
[2020-12-29] MEDS ORDERED: ONDANSETRON 4 MG/2 ML (SDV) Z0FRAN IVP PRN (14:00)
[2020-12-29] MEDS ORDERED: HYDROmorphone 2 MG/ML VIAL (DILAUDID) ONE (14:05)
[2020-12-29] MEDS ORDERED: morphine INJ 4 MG/ML 1 ML (VIAL/SYRINGE) ONE (15:41)
[2020-12-29] MEDS: inSUlin ASPART (NovoLOG) 1 UNIT/0.01 ML (CHARGE PER UNIT) SC SCH ×2 (16:05→21:24)
[2020-12-29] MEDS: ceFAZolin INJECTION 1,000 MG in WATER (STERILE) FOR INJECTION 10 ML IV SCH ×2 (16:12→23:34)
--- NOTE | 2020-12-29 17:04 | OPERATIVE REPORT ---
DATE OF SERVICE: 12/29/2020 ATTENDING SLUICE TENDER: Flores Maurice at [facility]. PREOPERATIVE DIAGNOSIS: Right lower extremity necrosis with history of necrotizing fasciitis. POSTOPERATIVE DIAGNOSES: Right lower extremity necrosis with history of necrotizing fasciitis, with necrosis encompassing skin and subcutaneous tissue. PROCEDURE: Sharp debridement of skin and subcutaneous tissue with an area of approximately 40 x 2 cm in dimensions. SURGEON: Sonja Godwin MD ANESTHESIA: General endotracheal with local. ESTIMATED BLOOD LOSS: Minimal. FINDINGS: Mild necrosis along the borders of large open wound from previous necrotizing fasciitis and wide debridement encompassing skin and subcutaneous tissue 40 x 2 cm in dimension. DISPOSITION: The patient tolerated the procedure well. INDICATIONS: The patient is a 50-year-old male who presented with right popliteal and right lateral leg cellulitis. He does have an extensive past medical history including smoking 2 packs a day as well as marijuana use as well as history of IV drug abuse and methamphetamine. He was found to have edema, cellulitis as well as fluctuance and this progressed and was found to have a necrotizing fasciitis and underwent a wide debridement on 10/22/2020, which included skin, subcutaneous tissue and muscle, 40 x 15 cm in size and after this, a wound VAC was placed. He has been seen by wound care and undergone wound dressing changes; however, the progress has been stagnant. He was seen in the office for a rim of necrotic skin and subcutaneous tissue approximately 40 x 2 cm in dimension was identified, which may have been impeding his progress. The wound bed did look viable with good granulation tissue. He also does have a mild contracture of the leg and will require physical therapy. DESCRIPTION OF PROCEDURE: The patient was brought to the operating room, laid supine on the table. After adequate IV pain and sedative medications and general endotracheal intubation, the patient was placed in left lateral decubitus position and the right lower extremity prepped and draped in standard surgical fashion. 1% lidocaine with epinephrine was used to anesthetize the overlying skin along the rim of the open wound. We then proceeded with meticulous dissection of the skin and subcutaneous tissue, which was a necrotic using a 15 blade. The overall dimension was a rim of approximately 40 x 2 cm in dimension. Good hemostasis was observed. The wound was then covered with a saline-soaked gauze followed by dry gauze, followed by ABD pad, followed by Kerlix wrap followed by 6-inch Nikos wrap. The patient tolerated the procedure well. We will again consult wound nursing as well as physical therapy for his contracture. He will also likely need to have a skin graft once the wound bed is free of debris and no signs of infection. Job ID: [id number] DocumentID: [id number] Dictated Date: 12/29/2020 13:46:36 Stemhole Borer Date: 12/29/2020 17:03:40 Dictated By: SONJA GODWIN MD MTDD
[2020-12-29] MEDS: morphine INJ 4 MG/ML 1 ML (VIAL/SYRINGE) IVP PRN (20:07)
[2020-12-29] MEDS: ONDANSETRON 4 MG/2 ML (SDV) Z0FRAN IVP PRN (22:58)
[2020-12-29] MEDS: HYDROcodone/APAP 7.5 MG/325 MG (LORTAB, LORCET PLUS) TABLET PO PRN (23:00)
[2020-12-30 00:10] VITALS: BP 129/81
[2020-12-30] MEDS: HYDROcodone/APAP 7.5 MG/325 MG (LORTAB, LORCET PLUS) TABLET PO PRN ×3 (04:17→23:56)
[2020-12-30 04:42] VITALS: BP 121/70
[2020-12-30] MEDS: inSUlin ASPART (NovoLOG) 1 UNIT/0.01 ML (CHARGE PER UNIT) SC SCH ×4 (05:27→20:27)
[2020-12-30 06:12] LABS: BASOPHILS % (AUTO) 1 % (0-10); EOSINOPHILS # (AUTO) 0.2 10^3/uL (0.0-0.3); EOSINOPHILS % (AUTO) 3 % (0-10); HEMATOCRIT 40 % (40-54); HEMOGLOBIN 13.4 g/dL (13.3-17.7); LYMPHOCYTES # (AUTO) 3.1 10^3/uL (1.0-4.0); LYMPHOCYTES % (AUTO) 41 % (12-44); MEAN CORPUSCULAR HEMOGLOBIN 30 pg (25-34); MEAN CORPUSCULAR HGB CONC 33 g/dL (32-36); MEAN CORPUSCULAR VOLUME 90 fL (80-99); MEAN PLATELET VOLUME 10.1 fL (9.0-12.2); MONOCYTES # (AUTO) 0.6 10^3/uL (0.0-1.0); MONOCYTES % (AUTO) 8 % (0-12); NEUTROPHILS # (AUTO) 3.6 10^3/uL (1.8-7.8); NEUTROPHILS % (AUTO) 47 % (42-75); PLATELET COUNT 310 10^3/uL (130-400); WHITE BLOOD COUNT 7.7 10^3/uL (4.3-11.0)
[2020-12-30 06:25] LABS: ALBUMIN 3.5 GM/DL (3.2-4.5); CHLORIDE 101 MMOL/L (98-107); POTASSIUM 4.1 MMOL/L (3.6-5.0); SODIUM 138 MMOL/L (135-145)
[2020-12-30 06:26] LABS: CALCIUM 8.8 MG/DL (8.5-10.1)
[2020-12-30 06:27] LABS: GLUCOSE 94 MG/DL (70-105); TOTAL PROTEIN 6.6 GM/DL (6.4-8.2)
[2020-12-30 06:28] LABS: CARBON DIOXIDE 29 MMOL/L (21-32)
[2020-12-30 06:29] LABS: BILIRUBIN,TOTAL 0.6 MG/DL (0.1-1.0)
[2020-12-30 06:31] LABS: ALKALINE PHOSPHATASE 95 U/L (40-136); CREATININE SERUM 0.72 MG/DL (0.60-1.30); GFR ESTIMATED > 60
[2020-12-30 06:32] LABS: BUN/CREATININE RATIO 14
[2020-12-30 06:34] LABS: ALANINE AMINOTRANSFERASE 43 U/L (0-55)
[2020-12-30 08:00] VITALS: BP 142/84
--- NOTE | 2020-12-30 09:08 | Physical Therapy Evaluation ---
PT Evaluation-General Medical Diagnosis Admission Date Dec 29, 2020 at 10:49 Medical Diagnosis: right lower ext necrosis Onset Date: Dec 29, 2020 Therapy Diagnosis Therapy Diagnosis: impaired mobility, endurance Height/Weight Weight (Pounds): 192 Weight (Ounces): 4.0 Precautions Precautions/Isolations: Fall Prevention, Standard Precautions Weight Bear Status Right Lower Extremity: Right Weight Bearing/Tolerated Referral Physician: Magda Reason for Referral: Evaluation/Treatment Medical History Pertinent Medical History: Atrial Fib, CAD, DM, Heart Failure, HTN, Smoking Reviewed History: Yes Social History Home: [facility] Current Living Status: Entry Into Home: Stairs With Railing PT Steps Inside Home: 9 Prior Prior Level of Function SCALE: Activities may be completed with or without assistive devices. 5-Ahrhbpypav-mofpuvd completes the activity by him/herself with no assistance from a helper. 5-Set-up or Clean-up Assistance-helper sets up or cleans up; patient completes activity. [place] assists only prior to or following the activity. 4-Supervision or Touching Assistance-helper provides verbal cues and/or touching/steadying and/or contact guard assistance as patient completes activity. Assistance may be provided throughout the activity or intermittently. 3-Partial/Moderate Assistance-helper does LESS THAN HALF the effort. [place] lifts, holds or supports trunk or limbs, but provides less than half the effort. 2-Substantial/Maximal Assistance-helper does MORE THAN HALF the effort. [place] lifts or holds trunk or limbs and provides more than half the effort. 8-Yrnknisug-nathxo does ALL the effort. Patient does none of the effort to complete the activity. Or, the assistance of 2 or more helpers is required for the patient to complete the activity. If activity was not attempted, code reason: 7-Patient Refused. 9-Not Applicable-not attempted and the patient did not perform the activity before the current illness, exacerbation or injury. 10-Not Attempted due to Environmental Limitations-(lack of equipment, weather restraints, etc.). 88-Not Attempted due to Medical Conditions or Safety Concerns. Bed Mobility: 6 Transfers (B,C,W/C): 6 Gait: 6 Stairs: 6 Indoor Mobility (Ambulation): Independent Stairs: Independent PT Evaluation-Current Subjective Patient in bed pre tx, agrees to PT, has 7/10 pain in right leg. Pt/Family Goals to be independent at home Objective Patient Orientation: Person, Place, Situation ROM/Strength ROM Lower Extremities WNL in LLE, RLE has slightly limited knee extension +10 degrees from full extension, patient educated on performing quad sets to help stretch that out Strength Lower Extremities LLE 5/5 gross Sensory Vision: Functional Hearing: Functional Sensation Right Lower Extremit: Intact Sensation Left Lower Extremity: Intact Transfers Roll Left to Right (QC): 6 Sit to Lying (QC): 6 Lying to Sitting/Side of Bed(Q: 6 Sit to Stand (QC): 4 Chair/Hhz-id-Uuolm Xfer(QC): 4 Gait Does the Patient Walk?: Yes Mode of Locomotion: Walk Anticipated Mode of Locomotion: Walk Walk 10 feet (QC): 4 Walk 50 ft with 2 Turns(QC): 4 Distance: 120' Gait Assistive Device: Cane Single Point Comments/Gait Description Patient ambulated 120' with a SPC with CGA, patient has some unsteadiness with turning but no complete LOB Balance Sitting Static: Normal Sitting Dynamic: Normal Standing Static: Normal Standing Dynamic: Fair Treatment BLE seated exercises x20 (AP, LAQ), supine QS for right knee extension stretching Assessment/Needs Patient has impaired mobility, endurance, balance. He is unsteady during ambulation with turning and needs somebody with him. Rehab Potential: Fair PT Senior Care Goals Senior Care Goals PT Senior Care Goals Time Frame: Jan 06, 2021 Roll Left & Right (QC): 6 Sit to Lying (QC): 6 Lying-Sitting on Side/Bed(QC): 6 Sit to Stand (QC): 6 Chair/Cyp-uv-Yfnea Xfer(QC): 6 Walk 10 feet (QC): 6 Walk 50ft with 2 Turns (QC): 6 Walk 150 ft (QC): 6 PT Plan Problem List Problem List: Activity Tolerance, Functional Strength, Safety, Balance, Gait, Transfer Treatment/Plan Treatment Plan: Continue Plan of Care Treatment Plan: Education, Functional Activity Andrew, Functional Strength, Gait, Safety, Therapeutic Exercise, Transfers Treatment Duration: Jan 06, 2021 Frequency: 6 times per week Estimated Hrs Per Day: .25 hour per day Patient and/or Family Agrees t: Yes Safety Risks/Education Patient Education: Gait Training, Transfer Techniques, Correct Positioning, Safety Issues Teaching Recipient: Patient Teaching Methods: Demonstration, Discussion Response to Teaching: Reinforcement Needed Time/GCodes Time In: 0820 Time Out: 850 Total Billed Treatment Time: 21 Total Billed Treatment 1 visit MIGUEL Carlos' SHANNAN CARIAS PT Dec 30, 2020 09:08
[2020-12-30] MEDS: ceFAZolin INJECTION 1,000 MG in WATER (STERILE) FOR INJECTION 10 ML IV SCH ×3 (09:26→23:25)
--- NOTE | 2020-12-30 11:47 | Consultation - Hospitalist ---
HPI History of Present Illness: HPI/Chief Complaint CC: Medical management of DM HPI: This is a 50yoWM who has a history of necrotizing fasciitis of his leg. He was admitted for debridement for areas around the wound that Dr. Arellano wound care was concerned about so he performed that surgery. Overall he is doing very well. I did give him double portions of regular diet as he requested. Source: patient Exam Limitations: clinical condition Date Seen 12/30/20 Attending Physician Conor Man MD [facility] Referring Physician Date of Admission Dec 29, 2020 at 10:49 Home Medications & Allergies Home Medications Reviewed patient Home Medication Reconciliation performed by pharmacy medication reconciliations electroencephalograph technician and/or nursing. Patients Allergies have been reviewed. Allergies Allergies Coded Allergies Penicillins (Unverified Adverse Reaction, Unknown, 07/22/19) Past Myzkkci-Wgpgih-Wsrmbi Hx Past Med/Social Hx: Reviewed Nursing Past Med/Soc Hx, Reviewed and Corrections made Patient Social History Marrital Status: single Employed/Student: unemployed Alcohol Use: Regular Use Drug of Choice: "[place]", hx Meth on UDS Smoking Status: Current Everyday Smoker Type Used: Cigarettes 2nd Hand Smoke Exposure: Yes Recent Foreign Travel: No Contact w/other who traveled: No Recent Hopitalizations: Yes (dismiss 11/09/20) Seasonal Allergies Seasonal Allergies: No Past Medical History Surgeries: Cardiac, Gallbladder Currently Using CPAP: No Currently Using BIPAP: No Cardiac: Atrial Fibrillation, Cardiomyopathy, Heart Attack, Irregular Heartbeat Gastrointestinal: Hepatitis Musculoskeletal: Fractures Endocrine: Diabetes, Insulin dep Psychosocial: Anxiety History of Blood Disorders: Yes (Hep C+) Adverse Reaction to Blood [place]: No Family History No Pertinent Family Hx Review of Systems Constitutional: see HPI Physical Exam Physical Exam Vital Signs Vital Signs - First Documented 12/29/20 11:20 Temp 36.2 Pulse 95 Resp 20 B/P (MAP) 138/88 (105) Pulse Ox 98 O2 Delivery Room Air Capillary Refill : Less Than 3 Seconds Height, Weight, BMI Height: '" Weight: 192lbs. 4.0oz. 87.966608th; 21.90 BMI Method: General Appearance: No Apparent Distress, WD/WN, Chronically ill Respiratory: Lungs Clear Cardiovascular: Regular Rate, Rhythm Neurologic/Psychiatric: Alert, Oriented x3, Depressed Affect Results Results/Procedures Labs Laboratory Tests 12/30/20 05:23 Patient resulted labs reviewed. Assessment/Plan Assessment and Plan Assess & Plan/Chief Complaint Assessment: s/p debridement of previous necrotizing fascitis leg wound DM OOC Smoker DWAINE Plan: Diet Insulin Diagnosis/Problems Diagnosis/Problems (1) Open wound of right lower leg Status: Acute (2) Necrotizing fasciitis Status: Acute LORNA FARMER DO Dec 30, 2020 11:47
[2020-12-30 12:00] VITALS: BP 126/72
--- NOTE | 2020-12-30 13:57 | Physician Query Clarification ---
PQ-Further Specificity Admission/Discharge Admission Date: Dec 29, 2020 at 10:49 Discharge Date: Dr. Godwin, The medical record reflects the following clinical scenario: History/Risk Factors: hx necrotizing fasciitis Clinical Findings: Mild necrosis along the borders of large open wound from previous necrotizing fasciitis and wide debridement encompassing skin and subcutaneous tissue 40 x 2 cm in dimension. Treatment: excisional debridement Question: Can you further specify the patients diagnosis per the clinical indicators above? Please document a response in the Progress Notes or Discharge Summary. 1. necrotizing fasciitis 2. gangrene no necrotizing fasciitis. 3. Other, with explanation of the clinical findings. 4. Clinically undetermined, no explanation for the clinical findings. PHYSICIAN RESPONSE Can you specify per above: 2 Please remember a lack of response to the above will prompt a phone page by CDI/Coding staff. In responding to this query, please exercise your independent professional judgment. The purpose of this communication is to more accurately reflect the complexity of your patients condition. The fact that a question is asked does not imply that any particular answer is desired or expected. Thank you for your timely response to this clarification. Requestors name: Elise THIS PHYSICIAN QUERY FORM IS A PERMANENT PART OF THE MEDICAL RECORD ELISE BUTLER Dec 30, 2020 13:57 SONJA GODWIN MD Dec 30, 2020 15:16
--- NOTE | 2020-12-30 15:06 | Progress Note ---
Subjective Date Seen by a Provider: Dec 30, 2020 Time Seen by a Provider: 10:00 Subjective/Events-last exam doing ok. tolerating diet. no fever/chills. wound granulating in well. Objective Exam Vital Signs Date Time Temp Pulse Resp B/P (MAP) Pulse Ox O2 Delivery O2 Flow Rate FiO2 12/30/20 12:00 36.2 76 16 126/72 (90) 98 Room Air 12/30/20 08:00 36.3 74 20 142/84 (103) 98 Room Air 12/30/20 08:00 Room Air 12/30/20 04:42 36.6 73 18 121/70 (87) 98 Room Air 12/30/20 00:10 36.3 82 20 129/81 (97) 98 Room Air 12/29/20 20:05 98 Room Air 12/29/20 20:00 36.4 87 18 116/68 (84) 98 Room Air 12/29/20 16:31 98 Room Air 0.00 12/29/20 16:11 36.4 80 16 139/85 (103) 98 Room Air I & O 12/30/20 07:00 Intake Total 711 ml Output Total 1225 ml Balance -514 ml Capillary Refill : Less Than 3 Seconds General Appearance: No Apparent Distress HEENT: PERRL/EOMI Respiratory: Chest Non Tender, Rhonci, Wheezing Cardiovascular: Regular Rate, Rhythm Gastrointestinal: normal bowel sounds, non tender, soft Extremity: Normal Capillary Refill Neurologic/Psychiatric: Alert, Oriented x3 Skin: Other (right leg wound granulating in well, no redness/erythema) Lymphatic: No Adenopathy Results Lab Laboratory Tests 12/29/20 15:38: Glucometer 146H 12/29/20 20:37: Glucometer 301H 12/30/20 05:07: Glucometer 104 12/30/20 05:23: White Blood Count 7.7, Red Blood Count 4.48, Hemoglobin 13.4, Hematocrit 40, Mean Corpuscular Volume 90, Mean Corpuscular Hemoglobin 30, Mean Corpuscular Hemoglobin Concent 33, Red Cell Distribution Width 12.2, Platelet Count 310, Mean Platelet Volume 10.1, Immature Granulocyte % (Auto) 0, Neutrophils (%) (Auto) 47, Lymphocytes (%) (Auto) 41, Monocytes (%) (Auto) 8, Eosinophils (%) (Auto) 3, Basophils (%) (Auto) 1, Neutrophils # (Auto) 3.6, Lymphocytes # (Auto) 3.1, Monocytes # (Auto) 0.6, Eosinophils # (Auto) 0.2, Basophils # (Auto) 0.0, Immature Granulocyte # (Auto) 0.0, Sodium Level 138, Potassium Level 4.1, Chloride Level 101, Carbon Dioxide Level 29, Anion Gap 8, Blood Urea Nitrogen 10, Creatinine 0.72, Estimat Glomerular Filtration Rate > 60, BUN/Creatinine Ratio 14, Glucose Level 94, Calcium Level 8.8, Corrected Calcium 9.2, Total Bilirubin 0.6, Aspartate Amino Transf (AST/SGOT) 41H, Alanine Aminotransferase (ALT/SGPT) 43, Alkaline Phosphatase 95, Total Protein 6.6, Albumin 3.5 12/30/20 11:39: Glucometer 184H Microbiology 12/29/20 MRSA Screen - Final, Complete MRSA not isolated Assessment/Plan Assessment/Plan Assess & Plan/Chief Complaint open wound right LE s/p side local excision for necrotizing fasciitis. cont wound care. plan for split thickness skin graft monday(01/05). SONJA GODWIN MD Dec 30, 2020 15:06
--- NOTE | 2020-12-30 15:08 | Discharge Inst-Surgical ---
D/C Lap Instructions-CITLALI Follow Up Appt in 2 weeks wet dry dressing daily Activity as tolerated Regular Diet Symptoms to Report: Fever over 101 degree F, Nausea/Vomiting Infection Signs and Symptoms to report: Increased redness, Foul odor of wound, Increased drainage Bathing instructions: May shower Operative Area Clean/Dry; Keep incision clean/dry If any problems/questions: Contact your physician or go to Emergency Room SONJA GODWIN MD Dec 30, 2020 15:08
[2020-12-30] MEDS: morphine INJ 4 MG/ML 1 ML (VIAL/SYRINGE) IVP PRN (15:15)
[2020-12-30 16:21] VITALS: BP 140/97
--- NOTE | 2020-12-30 17:58 | HISTORY AND PHYSICAL ---
DATE OF SERVICE: DATE OF ADMISSION: Will be 01/05/2021. ATTENDING INFORMATION TECHNOLOGY OFFICER: KRISTINA Kennedy. HISTORY: The patient is a 50-year-old male known to us. He initially presented with right popliteal pain and swelling. He was initially treated with IV antibiotics. He does have an extensive past medical history including smoking 2 packs of cigarettes daily as well as daily marijuana smoke as well. He also does have a history of IV drug abuse with methamphetamine; however, has not used in 5 years. He had worsening redness and swelling and upon examination, he was found to have edema and fluctuance as well as what appeared to be a suppurative thrombophlebitis. On 10/22/2020, he underwent an exploration and was found to have a necrotizing fasciitis and underwent a wide local excision of skin, subcutaneous tissue and muscle with the dimensions of 40 x 15 cm and a wound VAC was placed. With wound VAC, he slowly improved and was eventually discharged home with home health for dressing changes as well as an outpatient wound care followup. The wound care physician recommended further debridement, especially a rim of necrotic skin and subcutaneous tissue around the wound approximately 40 x 2 cm in size and underwent debridement of skin and subcutaneous tissue on 12/29/2020. The remainder of the wound bed looked very viable with good granulation tissue. He also does have a mild contracture of the lower extremity and physical therapy was consulted as well as wound care nursing. The plan is to continue with inpatient wound care for the next 2 days and be discharged home where he will be instructed to continue with wet to dry dressings on a daily basis. The wound appears very viable and not infected and is now ready for split-thickness skin graft, which will be taken from the right lateral thigh and will be scheduled on 01/05/2021. PAST MEDICAL HISTORY: Congenital heart defect, COPD, gastroesophageal reflux disease, history of myocardial infarction, atrial fibrillation, hepatitis C, diabetes, anxiety. PAST SURGICAL HISTORY: Open heart surgery at 12 weeks of age, hiatal hernia repair and Cassie fundoplication, wide debridement, right lower extremity due to necrotizing fasciitis as well as a recent debridement. ALLERGIES: PENICILLIN. MEDICATIONS: Oxycodone, cyclobenzaprine, diabetic medication. FAMILY HISTORY: Unknown. Patient is adopted. SOCIAL HISTORY: Positive for tobacco smoke greater than 50 pack years, daily marijuana use, history of IV methamphetamine use; however, has not used in 5 years. VITAL SIGNS: Stable. Blood pressure 138/85, currently 165.4 pounds with a body mass index of 20.1. REVIEW OF SYSTEMS: This is a slightly thin appearing male, currently in no acute distress. He is not experiencing any shortness of breath or difficulty breathing. No chest pain, palpitations, diaphoresis. No nausea, vomiting, no diarrhea or constipation. No fever, chills, no recent inadvertent weight loss. All other review of systems negative. PHYSICAL EXAMINATION: CHEST: Scattered wheezes and distant breath sounds bilaterally. HEART: Regular, no murmurs. EXTREMITIES: No lower extremity edema, negative Homans sign. HEENT: No scleral icterus. NECK: No cervical lymphadenopathy. ABDOMEN: Soft, nontender, nondistended. SKIN: Along the right lower and lateral lower extremity has previous wide excision site, which has granulated in well with no surrounding redness or erythema to indicate any infection. Palpable distal pulses bilaterally. LABORATORY DATA: WBC 7.7, hemoglobin 13.4, hematocrit 40, platelets 310. BUN 10, creatinine 0.72. ASSESSMENT AND PLAN: A 50-year-old male with a large open wound of the lower aspect of the right lower extremity, who has been undergoing wound care with wound VAC and eventually wet to dry dressings and outpatient wound care. He recently underwent debridement of slightly necrotic skin and soft tissue; however, the entire wound appears to be viable with no signs of infection. We will schedule him for outpatient split-thickness skin graft taken from the upper right lateral thigh on 01/05/2021. Postoperatively, we will dress the skin graft and harvest site well and have him not change the dressing until seen in the office in approximately 5 to 7 days. We will also give him p.o. prophylactic antibiotics. Job ID: [id number] DocumentID: [id number] Dictated Date: 12/30/2020 17:34:50 Assembling Fabricator Date: 12/30/2020 17:57:36 Dictated By: SONJA GODWIN MD
[2020-12-30] MEDS: ONDANSETRON 4 MG/2 ML (SDV) Z0FRAN IVP PRN (20:17)
[2020-12-30 20:29] VITALS: BP 121/80
[2020-12-31 00:13] VITALS: BP 125/85
[2020-12-31] MEDS: HYDROcodone/APAP 7.5 MG/325 MG (LORTAB, LORCET PLUS) TABLET PO PRN ×2 (03:32→20:39)
[2020-12-31 04:27] VITALS: BP 132/81
[2020-12-31] MEDS: inSUlin ASPART (NovoLOG) 1 UNIT/0.01 ML (CHARGE PER UNIT) SC SCH ×4 (06:35→20:52)
--- NOTE | 2020-12-31 07:17 | Progress Note - Surgery ---
CARLTON ARTIS MED STUDENT 12/31/20 0717: Subjective Date Seen by a Provider: Dec 31, 2020 Time Seen by a Provider: 07:10 Subjective/Events-last exam Pt awake and eating in bed upon entry. No acute events over night. Wound is wrapped and was not visualized (will visualize upon dressing change later today). Pt notes leg pain (controlled) and pain in low posterior thoracic on left side. Thoracic pain described as an ice pick, 8/10 currently, 10/10 pain at worse. Pt explains previous experience like this was similar to previous kidney stone, also on the left. Notes that the pain comes and goes but when he is experiencing pain it lasts for 4-5 hrs. Progressively getting worse. Heat helps but pressure makes it worse. Denies dysuria or hematuria. Review of Systems General: No Chills, No Fatigue HEENT: No Head Aches, No Dysphasia Pulmonary: No Dyspnea; Cough Cardiovascular: No: Chest Pain, Palpitations Gastrointestinal: Nausea; No: Vomiting, Abdominal Pain Genitourinary: No Dysuria, No Hematuria Musculoskeletal: back pain (left lower thoracic posterior), leg pain (Left leg pain 8/10) Neurological: Numbness (left LE); No: Weakness Objective Exam Vital Signs Date Time Temp Pulse Resp B/P (MAP) Pulse Ox O2 Delivery O2 Flow Rate FiO2 12/31/20 04:27 36.3 78 20 132/81 (98) 98 Room Air 12/31/20 00:13 36.8 85 18 125/85 (98) 99 Room Air 12/30/20 20:29 36.4 85 20 121/80 (94) 100 Room Air 12/30/20 20:20 98 Room Air 12/30/20 16:21 36.0 88 20 140/97 (111) 96 Room Air 12/30/20 12:00 36.2 76 16 126/72 (90) 98 Room Air 12/30/20 08:00 36.3 74 20 142/84 (103) 98 Room Air 12/30/20 08:00 Room Air I & O 12/31/20 07:00 Intake Total 1910 ml Output Total 1200 ml Balance 710 ml Capillary Refill : Less Than 3 Seconds General Appearance: No Apparent Distress, WD/WN, Chronically ill, Thin HEENT: PERRL/EOMI, Moist Mucous Membranes Neck: Full Range of Motion, Non Tender, Supple Respiratory: Chest Non Tender, Lungs Clear, Normal Breath Sounds, No Accessory Muscle Use, No Respiratory Distress Cardiovascular: Regular Rate, Rhythm, No Edema, No Gallop, No Murmur Gastrointestinal: non tender, soft Extremity: Non Tender, No Calf Tenderness, No Pedal Edema Neurologic/Psychiatric: Alert, Oriented x3, No Motor/Sensory Deficits, Normal Mood/Affect Skin: Tattoos/Piercings, Other (right leg wound granulating in well) Lymphatic: No Adenopathy (cervical, supraclavicular, axillary) Other comments [employer] punch positive on left side Results Lab Laboratory Tests 12/30/20 11:39: Glucometer 184H 12/30/20 16:02: Glucometer 220H 12/30/20 20:16: Glucometer 226H 12/31/20 05:22: Glucometer 214H Microbiology 12/29/20 MRSA Screen - Final, Complete MRSA not isolated Assessment/Plan Assessment/Plan Assessment/Plan open wound right LE s/p side local excision for necrotizing fasciitis. cont wound care. plan for split thickness skin graft Monday (01/05). pain control WADE MARQUEZ DO 12/31/20 1712: Subjective Time Seen by a Provider: 08:09 Subjective/Events-last exam Pt seen and examined, pt states leg feel about the same. Pt complaining of back pain; "like when I had a kidney stone". Review of Systems General: No Chills, No Fatigue HEENT: No Head Aches Pulmonary: No Dyspnea; Cough Cardiovascular: No: Chest Pain, Palpitations Gastrointestinal: Nausea; No: Vomiting, Abdominal Pain Genitourinary: No Dysuria, No Hematuria Musculoskeletal: back pain (left lower thoracic posterior), leg pain (Left leg pain 8/10) Objective Exam General Appearance: No Apparent Distress, Chronically ill, Thin HEENT: Moist Mucous Membranes Respiratory: Lungs Clear, Normal Breath Sounds, No Accessory Muscle Use, No Respiratory Distress Cardiovascular: Regular Rate, Rhythm, No Murmur Extremity: No Pedal Edema Skin: Other (right leg wound granulating in well, per wound care) Assessment/Plan Assessment/Plan Assessment/Plan Open wound right LE s/p wide local excision for necrotizing fasciitis Wound care states it is continuing to improve, will try to get a look at it tomorrow. Continue daily dressing changes with wound care. Plan for split thickness skin graft Monday (01/05), pt may go home and have it done as an outpt. Pain control. Supervisory-Addendum Brief Verification & Attestation Participated in pt care: history, MDM, physical Personally performed: exam, history, MDM Care discussed with: Medical Student Procedures: n/a Verification and Attestation of Medical Student E/M Service A medical student performed and documented this service. I then reviewed and verified all information documented by the medical student and made modifications to such information, when appropriate. I personally performed a physical exam, medical decision making and then discussed any differences be tween the notes and made revisions as necessary to create one note. Wade Marquez , 12/31/20 , 17:12 CARLTON ARTIS MED STUDENT Dec 31, 2020 07:17 WADE MARQUEZ DO Dec 31, 2020 17:12
[2020-12-31 08:00] VITALS: BP 170/76
[2020-12-31] MEDS: ceFAZolin INJECTION 1,000 MG in WATER (STERILE) FOR INJECTION 10 ML IV SCH ×3 (08:58→23:47)
[2020-12-31] MEDS: morphine INJ 4 MG/ML 1 ML (VIAL/SYRINGE) IVP PRN ×2 (09:04→16:58)
--- NOTE | 2020-12-31 10:38 | Progress Note - Hospitalist ---
Subjective HPI/CC On Admission Date Seen by Provider: Dec 31, 2020 Time Seen by Provider: 11:00 CC: Medical management of DM HPI: This is a 50yoWM who has a history of necrotizing fasciitis of his leg. He was admitted for debridement for areas around the wound that Dr. Arellano wound care was concerned about so he performed that surgery. Overall he is doing very well. I did give him double portions of regular diet as he requested. Subjective/Events-last exam Patient doing well Pain controlled Wound changes made Eating well Review of Systems Musculoskeletal: leg pain Objective Exam Vital Signs Vital Signs Date Time Temp Pulse Resp B/P (MAP) Pulse Ox O2 Delivery O2 Flow Rate FiO2 01/01/21 00:00 36.8 88 18 147/84 (105) 97 Room Air 12/29/20 16:31 0.00 Capillary Refill : Less Than 3 Seconds General Appearance: No Apparent Distress, WD/WN, Chronically ill Respiratory: Lungs Clear Cardiovascular: Regular Rate, Rhythm Neurologic/Psychiatric: Alert, Oriented x3, No Motor/Sensory Deficits, Normal Mood/Affect Results/Procedures Lab Patient resulted labs reviewed. Assessment/Plan Assessment and Plan Assess & Plan/Chief Complaint Assessment: s/p debridement of previous necrotizing fascitis leg wound DM OOC Smoker DWAINE Plan: Diet Insulin 12/31/20: DM management Diagnosis/Problems Diagnosis/Problems (1) Open wound of right lower leg Status: Acute (2) Necrotizing fasciitis Status: Acute LORNA FARMER DO Dec 31, 2020 10:38
[2020-12-31 12:00] VITALS: BP 166/70
--- NOTE | 2020-12-31 12:06 | Physical Therapy Daily Note ---
PT Daily Note-Current Subjective Patient reports he is up independently in hallway. Agrees to PT. Demonstrates LE exercises to attain extension. Mental Status Patient Orientation: Normal For Age Transfers SCALE: Activities may be completed with or without assistive devices. 9-Vthlxqtlgq-ybekgvl completes the activity by him/herself with no assistance from a helper. 5-Set-up or Clean-up Assistance-helper sets up or cleans up; patient completes activity. [place] assists only prior to or following the activity. 4-Supervision or Touching Assistance-helper provides verbal cues and/or touching/steadying and/or contact guard assistance as patient completes ac tivity. Assistance may be provided throughout the activity or intermittently. 3-Partial/Moderate Assistance-helper does LESS THAN HALF the effort. [place] lifts, holds or supports trunk or limbs, but provides less than half the effort. 2-Substantial/Maximal Assistance-helper does MORE THAN HALF the effort. [place] lifts or holds trunk or limbs and provides more than half the effort. 4-Rtnjlbovd-ecehgt does ALL the effort. Patient does none of the effort to complete the activity. Or, the assistance of 2 or more helpers is required for the patient to complete the activity. If activity was not attempted, code reason: 7-Patient Refused. 9-Not Applicable-not attempted and the patient did not perform the activity before the current illness, exacerbation or injury. 10-Not Attempted due to Environmental Limitations-(lack of equipment, weather restraints, etc.). 88-Not Attempted due to Medical Conditions or Safety Concerns. Sit to Lying (QC): 6 Lying to Sitting/Side of Bed(Q: 6 Sit to Stand (QC): 6 Weight Bearing Right Lower Extremity: Right Weight Bearing/Tolerated Gait Training Does the Patient Walk?: Yes Distance: 800' Walk 10 feet (QC): 6 Walk 50 ft with 2 Turns(QC): 6 Walk 150 ft (QC): 6 Gait Assistive Device: Cane Single Point safe and functional with no deviation Exercises Supine Ex: Quad Set Supine Reps: 20 Assessment Patient reports compliance with ambulation and exercises. Patient is currently at independent PLOF with all gross motor skills. PT Tour Escort Goals Fpc Goals PT Fpc Goals Time Frame: Jan 06, 2021 Roll Left & Right (QC): 6 Sit to Lying (QC): 6 Lying-Sitting on Side/Bed(QC): 6 Sit to Stand (QC): 6 Chair/Prx-zt-Psuar Xfer(QC): 6 Walk 10 feet (QC): 6 Walk 50ft with 2 Turns (QC): 6 Walk 150 ft (QC): 6 PT Plan Treatment/Plan Treatment Plan: Discontinue PT, goals met Treatment Plan: Education, Functional Activity Andrew, Functional Strength, Gait, Safety, Therapeutic Exercise, Transfers Treatment Duration: Jan 06, 2021 Frequency: 6 times per week Estimated Hrs Per Day: .25 hour per day Patient and/or Family Agrees t: Yes Time/GCodes Time In: 1126 Time Out: 1142 Total Billed Treatment Time: 16 Total Billed Treatment 1 visit FA 16 min ROWENA MUNOZ PT Dec 31, 2020 12:06
[2020-12-31] MEDS: ONDANSETRON 4 MG/2 ML (SDV) Z0FRAN IVP PRN (12:52)
[2020-12-31 16:31] VITALS: BP 139/88
[2020-12-31 19:19] VITALS: BP 126/76
[2021-01-01] VITALS: BP 147/84
[2021-01-01] MEDS: HYDROcodone/APAP 7.5 MG/325 MG (LORTAB, LORCET PLUS) TABLET PO PRN ×3 (00:11→11:12)
[2021-01-01] MEDS: inSUlin ASPART (NovoLOG) 1 UNIT/0.01 ML (CHARGE PER UNIT) SC SCH ×2 (05:05→11:58)
[2021-01-01 06:35] LABS: BASOPHILS % (AUTO) 0 % (0-10); EOSINOPHILS # (AUTO) 0.2 10^3/uL (0.0-0.3); EOSINOPHILS % (AUTO) 3 % (0-10); HEMATOCRIT 40 % (40-54); HEMOGLOBIN 13.4 g/dL (13.3-17.7); LYMPHOCYTES # (AUTO) 2.7 10^3/uL (1.0-4.0); LYMPHOCYTES % (AUTO) 37 % (12-44); MEAN CORPUSCULAR HEMOGLOBIN 30 pg (25-34); MEAN CORPUSCULAR HGB CONC 34 g/dL (32-36); MEAN CORPUSCULAR VOLUME 90 fL (80-99); MONOCYTES # (AUTO) 0.7 10^3/uL (0.0-1.0); MONOCYTES % (AUTO) 9 % (0-12); NEUTROPHILS # (AUTO) 3.7 10^3/uL (1.8-7.8); NEUTROPHILS % (AUTO) 50 % (42-75); PLATELET COUNT 308 10^3/uL (130-400); WHITE BLOOD COUNT 7.4 10^3/uL (4.3-11.0)
[2021-01-01 06:48] LABS: ALBUMIN 3.6 GM/DL (3.2-4.5); CHLORIDE 101 MMOL/L (98-107); POTASSIUM 4.1 MMOL/L (3.6-5.0); SODIUM 136 MMOL/L (135-145)
[2021-01-01 06:49] LABS: CALCIUM 8.8 MG/DL (8.5-10.1)
[2021-01-01 06:50] LABS: GLUCOSE 269 MG/DL (70-105); TOTAL PROTEIN 6.7 GM/DL (6.4-8.2)
[2021-01-01 06:51] LABS: CARBON DIOXIDE 27 MMOL/L (21-32)
[2021-01-01 06:52] LABS: BILIRUBIN,TOTAL 0.3 MG/DL (0.1-1.0)
[2021-01-01 06:54] LABS: ALKALINE PHOSPHATASE 89 U/L (40-136); CREATININE SERUM 0.81 MG/DL (0.60-1.30); GFR ESTIMATED > 60
[2021-01-01 06:55] LABS: BUN/CREATININE RATIO 15
[2021-01-01 06:57] LABS: ALANINE AMINOTRANSFERASE 38 U/L (0-55)
--- NOTE | 2021-01-01 07:32 | Progress Note - Surgery ---
NING CHAHAL,MED STUDENT 01/01/21 0732: Subjective Date Seen by a Provider: Jan 01, 2021 Time Seen by a Provider: 06:37 Subjective/Events-last exam Pt seen and examined this morning. Reports 8/10 cramping pain in R thigh and leg, states it is similar to the pain he had before he had his first surgery. Denies fever, chills, SOB. Reports chest pains when he is cold, states he has had similar symptoms since he was 16 years old. Review of Systems General: No Fatigue; Appetite Pulmonary: No Dyspnea, No Cough Cardiovascular: Chest Pain; No: Palpitations, Edema Gastrointestinal: No: Nausea, Vomiting, Abdominal Pain Genitourinary: No Dysuria, No Hematuria Musculoskeletal: back pain (bilateral lower back ), leg pain (left, cramping) Neurological: No: Weakness, Numbness Objective Exam Vital Signs Date Time Temp Pulse Resp B/P (MAP) Pulse Ox O2 Delivery O2 Flow Rate FiO2 01/01/21 00:00 36.8 88 18 147/84 (105) 97 Room Air 12/31/20 19:46 Room Air 12/31/20 19:19 37.1 90 16 126/76 (93) 90 Room Air 12/31/20 16:31 36.1 85 18 139/88 (105) 96 Room Air 12/31/20 12:00 37.1 68 18 166/70 (102) 99 Room Air 12/31/20 08:00 Room Air 12/31/20 08:00 36.1 86 18 170/76 (107) 96 Room Air I & O 01/01/21 07:00 Intake Total 2070 ml Output Total 825 ml Balance 1245 ml Capillary Refill : Less Than 3 Seconds General Appearance: No Apparent Distress, WD/WN, Thin HEENT: PERRL/EOMI, Moist Mucous Membranes Respiratory: Lungs Clear, No Accessory Muscle Use, No Respiratory Distress Cardiovascular: Regular Rate, Rhythm, No Murmur, Other Peripheral Pulses: 2+ Dorsalis Pedis (R), 2+ Left Dors-Pedis (L), 2+ Radial Pulses (R), 2+ Radial Pulses (L) Gastrointestinal: non tender, soft; No distended Extremity: No Calf Tenderness, No Pedal Edema Neurologic/Psychiatric: Alert, Oriented x3, No Motor/Sensory Deficits, Normal Mood/Affect Skin: Other (dressing in place to RLE, c/d/i) Results Lab Laboratory Tests 12/31/20 11:28: Glucometer 130H 12/31/20 15:55: Glucometer 266H 12/31/20 20:49: Glucometer 239H 01/01/21 05:01: Glucometer 264H 01/01/21 05:46: White Blood Count 7.4, Red Blood Count 4.46, Hemoglobin 13.4, Hematocrit 40, Mean Corpuscular Volume 90, Mean Corpuscular Hemoglobin 30, Mean Corpuscular Hem oglobin Concent 34, Red Cell Distribution Width 12.4, Platelet Count 308, Mean Platelet Volume 10.0, Immature Granulocyte % (Auto) 0, Neutrophils (%) (Auto) 50, Lymphocytes (%) (Auto) 37, Monocytes (%) (Auto) 9, Eosinophils (%) (Auto) 3, Basophils (%) (Auto) 0, Neutrophils # (Auto) 3.7, Lymphocytes # (Auto) 2.7, Monocytes # (Auto) 0.7, Eosinophils # (Auto) 0.2, Basophils # (Auto) 0.0, Immature Granulocyte # (Auto) 0.0, Sodium Level 136, Potassium Level 4.1, Chloride Level 101, Carbon Dioxide Level 27, Anion Gap 8, Blood Urea Nitrogen 12, Creatinine 0.81, Estimat Glomerular Filtration Rate > 60, BUN/Creatinine Ratio 15, Glucose Level 269H, Calcium Level 8.8, Corrected Calcium 9.1, Total Bilirubin 0.3, Aspartate Amino Transf (AST/SGOT) 35H, Alanine Aminotransferase (ALT/SGPT) 38, Alkaline Phosphatase 89, Total Protein 6.7, Albumin 3.6 Microbiology 12/29/20 MRSA Screen - Final, Complete MRSA not isolated Assessment/Plan Assessment/Plan Assessment/Plan RLE wound s/p wide local excision for necrotizing fasciitis Plan for split thickness skin graft 01/05, can be outpatient Oral pain control D/c today? SHENG CAROLINA DO 01/01/21 0509: Supervisory-Addendum Brief Verification & Attestation Participated in pt care: other Personally performed: other Care discussed with: other Procedures: n/a Pt left before I saw him. NING CHHAAL,MED STUDENT Jan 01, 2021 07:32 SHENG CAROLINA DO Jan 01, 2021 16:49
[2021-01-01 08:00] VITALS: BP_SYST 134; BP_SYST 170; BP_DIAS 76; BP_DIAS 87
[2021-01-01] MEDS: ceFAZolin INJECTION 1,000 MG in WATER (STERILE) FOR INJECTION 10 ML IV SCH (08:44)
[2021-01-01] MEDS: morphine INJ 4 MG/ML 1 ML (VIAL/SYRINGE) IVP PRN (08:54)
[2021-01-01] MEDS: ONDANSETRON 4 MG/2 ML (SDV) Z0FRAN IVP PRN (10:23)
[2021-01-01] MEDS ORDERED: INSU100V5 SQ (11:47)
[2021-01-01] MEDS ORDERED: OXYC1TAB12 PO (11:48)
--- NOTE | 2021-01-01 11:49 | Progress Note - Hospitalist ---
Subjective HPI/CC On Admission Date Seen by Provider: Jan 01, 2021 Time Seen by Provider: 10:30 CC: Medical management of DM HPI: This is a 50yoWM who has a history of necrotizing fasciitis of his leg. He was admitted for debridement for areas around the wound that Dr. Arellano wound care was concerned about so he performed that surgery. Overall he is doing very well. I did give him double portions of regular diet as he requested. Subjective/Events-last exam Ready for DC Sent in insulin and pain meds No issues Review of Systems General: Fatigue Objective Exam Vital Signs Vital Signs Date Time Temp Pulse Resp B/P (MAP) Pulse Ox O2 Delivery O2 Flow Rate FiO2 01/01/21 08:00 Room Air 01/01/21 08:00 36.3 90 18 134/87 (103) 97 12/29/20 16:31 0.00 Capillary Refill : Less Than 3 Seconds General Appearance: No Apparent Distress, WD/WN Respiratory: Chest Non Tender, Lungs Clear, Normal Breath Sounds, No Accessory Muscle Use, No Respiratory Distress Cardiovascular: Regular Rate, Rhythm, No Edema, No Gallop, No JVD, No Murmur, Normal Peripheral Pulses Neurologic/Psychiatric: Alert, Oriented x3, No Motor/Sensory Deficits, Normal Mood/Affect Results/Procedures Lab Patient resulted labs reviewed. Assessment/Plan Assessment and Plan Assess & Plan/Chief Complaint Assessment: s/p debridement of previous necrotizing fascitis leg wound DM OOC Smoker DWAINE Plan: Diet Insulin 12/31/20: DM management 01/01/21: Insulin and pain med refill Diagnosis/Problems Diagnosis/Problems (1) Open wound of right lower leg Status: Acute (2) Necrotizing fasciitis Status: Acute LORNA FARMER DO Jan 01, 2021 11:49
--- NOTE | 2021-01-01 13:24 | D/C HH Face to Face Order ---
D/C Face to Face Orders Reconcile Patient Problems Problems Reviewed?: Yes Instructions for Patient Via [facility] e[facility]utor, Patient Instructions/FollowUp: wet to dry dressing 3 times week Physician to follow Patient: scheduled for OP split thickness skin graft on monday(01/05) at 1100. Discharge Diet for Home: Regular Diet, ADA Diet Patient Data-Allergies,Ht & Wt Patient Allergies: Coded Allergies: Penicillins (Unverified Adverse Reaction, Unknown, 07/22/19) Weight (Pounds): 192 Weight (Ounces): 4.0 Home Health Need/Face to Face Date of Face to Face: Jan 01, 2021 Clinical Findings: Instability, Muscle weakness, Pain with ambulation, Unsteady gait, Wound infection, Non-healing wound I have seen Pt [id number]: Yes Discharged To: Home Diagnosis/Conditions: hx necrotizing fasciitis with open right leg wound and residual necrotic tissue Patient is Homebound due to: Muscle weakness, Pain w/ambulation Homebound Status Due to the above stated illness, injury or surgical procedure (medical condition or diagnosis) and associated clinical findings, the patient is homebound because of his/her inability to leave home except with aid of a supportive device and/or person AND leaving the home requires a considerable and taxing effort or is medically contraindicated. Pt req the following assistanc: Aid of another person, Cane, Walker Home Health Nursing Orders Home Health Services Order: Nursing Services, Fitness Management Director-Evaluate & Treat, Physical Therapy-Evaluate & Treat, Wound Care-Eval/Treat Certify Stmt I certify that this patient is under my care and that I, a nurse practitioner or a physician; a assistant vice president working with me, had a face to face encounter that - meets the physician face to face encounter requirements with this patient as dated. SONJA GODWIN MD Jan 01, 2021 13:20
== END 2021-01-01 13:50 | disposition home health service (06) | DRG 264 ==
LOC: 4TH 10:49 → SURG 10:50 → EDSTATUS 12:00 → 4TH 15:06
PROVIDERS: ADMIT Surgery; ATTEND Surgery
PROC: 0JBN0ZZ Excision of Right Lower Leg Subcutaneous Tissue and Fascia, Open Approach (ICD-10-PCS; principal; 2020-12-29 12:45)
DX: E11.52 Type 2 diabetes mellitus with diabetic peripheral angiopathy with gangrene (principal); I96 Gangrene, not elsewhere classified; I42.9 Cardiomyopathy, unspecified; I48.91 Unspecified atrial fibrillation; B19.20 Unspecified viral hepatitis C without hepatic coma; E11.9 Type 2 diabetes mellitus without complications; F41.9 Anxiety disorder, unspecified; Z79.4 Long term (current) use of insulin; F17.210 Nicotine dependence, cigarettes, uncomplicated; E11.65 Type 2 diabetes mellitus with hyperglycemia; F12.90 Cannabis use, unspecified, uncomplicated; J44.9 Chronic obstructive pulmonary disease, unspecified; K21.9 Gastro-esophageal reflux disease without esophagitis; Z79.891 Long term (current) use of opiate analgesic; I25.2 Old myocardial infarction; Z88.6 Allergy status to analgesic agent; Z88.0 Allergy status to penicillin
CPT/HCPCS: 36415; 80053; 80306; 82962; 85025; 87081

== ENCOUNTER 2021-01-04 11:30 | Outpatient (RCR) | payer MEDICAID ==
[~2021-01-04] VITALS: Ht 193 cm; Wt 75.0 kg
== END 2021-01-04 12:32 | disposition home or self-care (01) ==
LOC: PREOP 11:30
PROVIDERS: ATTEND Surgery
DX: Z01.818 Encounter for other preprocedural examination (principal)

== ENCOUNTER → 2021-01-07 | Outpatient (CLI) | payer MEDICAID ==
[~2021-01-07] MED LIST changes: +OXYC1TAB16 PO
== END ==
LOC: LAB FS 10:30
PROVIDERS: ATTEND Nurse Practitioner Family
DX: Z01.812 Encounter for preprocedural laboratory examination (principal); M72.6 Necrotizing fasciitis; Z20.822 Contact with and (suspected) exposure to COVID-19
CPT/HCPCS: 87635

== ENCOUNTER 2021-01-08 09:04 | Day surgery (SDC) | payer MEDICAID ==
[~2021-01-08] VITALS: Ht 193 cm; Wt 75.0 kg
[2021-01-08] VITALS (11 sets, daily range): BP systolic 114–152; BP diastolic 65–91
[~2021-01-08 09:04] MED LIST changes: -OXYC1TAB16 PO
[2021-01-08] MEDS ORDERED: inSUlin ASPART (NovoLOG) 1 UNIT/0.01 ML (CHARGE PER UNIT) ONE (09:28)
[2021-01-08] MEDS ORDERED: inSUlin ASPART (NovoLOG) 1 UNIT/0.01 ML (CHARGE PER UNIT) IV ONE ×2 (09:30→10:45)
[2021-01-08] MEDS ORDERED: LIDOCAINE/EPI 1%-1:100,000 (XYLOCAINE) 50 ML ONE (09:38)
[2021-01-08] MEDS ORDERED: CLINDAMYCIN 600 MG/50 ML IVPB 50 ML IV ONE (09:45)
[2021-01-08] MEDS ORDERED: LACTATED RINGERS 1,000 ML IV PRN (09:45)
[2021-01-08] MEDS ORDERED: CATHETER FLUSH 10 ML SYR IV PRN (10:00)
[2021-01-08] MEDS ORDERED: ONDANSETRON 4 MG/2 ML (SDV) Z0FRAN ONE (10:07)
[2021-01-08] MEDS ORDERED: fentaNYL INJECTION 100 MCG/2 ML AMP ONE (10:07)
[2021-01-08] MEDS ORDERED: MIDAZOLAM 2 MG/2 ML (VERSED) VIAL ONE (10:07)
[2021-01-08] MEDS ORDERED: SEVOFLURANE (ULTANE) 15 ML INHAL SOLN ONE ×3 (10:15→14:29)
[2021-01-08] MEDS ORDERED: proPOfol 200 MG/20 ML (DIPRIVAN) VIAL IV ONE (10:15)
[2021-01-08] MEDS ORDERED: LIDOCAINE PF 2% 5 ML (XYLOCAINE) VIAL ONE (10:15)
[2021-01-08] MEDS ORDERED: inSUlin ASPART (NovoLOG) 1 UNIT/0.01 ML (CHARGE PER UNIT) SC ONE (10:45)
--- NOTE | 2021-01-08 11:23 | Progress Note-Pre Operative ---
Pre-Operative Progress Note H&P Reviewed The H&P was reviewed, patient examined and no changes noted. Date Seen by Provider: Jan 08, 2021 Time Seen by Provider: 11:15 Date H&P Reviewed: Jan 08, 2021 Time H&P Reviewed: 11:15 Pre-Operative Diagnosis: hx necrotizing fasciitis right leg with large open wound SONJA GODWIN MD Jan 08, 2021 11:23
--- NOTE | 2021-01-08 11:25 | Discharge Inst-Surgical ---
D/C Lap Instructions-CITLALI Follow Up Appt in 2 weeks Activity as tolerated No driving for 24 hours No driving while on pain medications Incentive Spirometry use every 2 hours while awake Regular Diet Symptoms to Report: Fever over 101 degree F, Nausea/Vomiting Infection Signs and Symptoms to report: Increased redness, Foul odor of wound, Increased drainage Bathing instructions: May shower Operative Area Clean/Dry; Keep incision clean/dry If any problems/questions: Contact your physician or go to Emergency Room SONJA GODWIN MD Jan 08, 2021 11:25
[2021-01-08] MEDS ORDERED: morphine INJ 10 MG/ML 1ML (SYR OR VIAL) IVP PRN ×2 (11:30)
[2021-01-08] MEDS ORDERED: oxyCODONE/APAP 5/325MG (PERCOCET 5) TABLET PO PRN (11:30)
[2021-01-08] MEDS ORDERED: ONDANSETRON 4 MG/2 ML (SDV) Z0FRAN IVP PRN ×2 (11:30→14:30)
[2021-01-08] MEDS ORDERED: ACETAMINOPHEN 325 MG TABLET PO PRN (11:30)
[2021-01-08] MEDS ORDERED: EPINEPHrine INJECTION 1 MG/ML AMP ONE (12:01)
[2021-01-08] MEDS ORDERED: PHENYLEPHRINE 100 MCG/ML 10 ML (ANESTHESIA) SYR ONE (13:19)
[2021-01-08] MEDS ORDERED: NEOSTIGMINE 3 MG/3 ML VIAL ONE (13:53)
[2021-01-08] MEDS ORDERED: GLYCOPYRROLATE 0.2 MG/ML (ROBINUL) 2 ML VIAL ONE (13:53)
[2021-01-08] MEDS ORDERED: ROCURONIUM 10 MG/ML 5 ML SYRINGE IV ONE (14:04)
[2021-01-08] MEDS ORDERED: HYDROmorphone 2 MG/ML VIAL (DILAUDID) IV ONE (14:30)
[2021-01-08] MEDS ORDERED: morphine INJ 10 MG/ML 1ML (SYR OR VIAL) IVP ONE (14:30)
--- NOTE | 2021-01-08 15:05 | Anesthesia-General Post-Op ---
General Patient Condition Mental Status/LOC: Same as Preop Cardiovascular: Satisfactory Nausea/Vomiting: Absent Respiratory: Satisfactory Pain: Controlled Complications: Absent Post Op Complications Complications None Follow Up Care/Instructions Patient Instructions None needed. Anesthesia/Patient Condition Patient Condition Patient is doing well, C/O LE pain (which is to be expected) and minimal nausea, stable vital signs, no apparent adverse anesthesia problems. DARIELA POSADAS 5, 2021 15:05
[2021-01-08] MEDS ORDERED: OXYC1TAB16 PO (15:33)
--- NOTE | 2021-01-08 20:24 | OPERATIVE REPORT ---
DATE OF SERVICE: 01/08/2021 ATTENDING STAVE MACHINE TENDER: KRISTINA Bright PREOPERATIVE DIAGNOSIS: History of necrotizing fasciitis, right lower extremity with large open wound. POSTOPERATIVE DIAGNOSIS: History of necrotizing fasciitis, right lower extremity with large open wound. PROCEDURE: Split-thickness skin graft taken from the right lateral thigh, a 30 x 10 cm. SURGEON: Conor Godwin MD DEPUTY COUNTY CLERK: Jacobo Magdaleno APRN. ANESTHESIA: General endotracheal. ESTIMATED BLOOD LOSS: Minimal. DISPOSITION: The patient tolerated the procedure well. INDICATIONS: The patient is a 50-year-old male known to us. He initially presented with right popliteal pain and swelling and was initially treated with IV antibiotics. He does have an extensive past medical history including smoking 2 packs of cigarettes daily as well as daily marijuana smoke as well. He also does have a history of IV drug abuse with methamphetamine. However, states that he has not used any in 5 years. He had worsening redness and swelling. Upon examination, he was found to have edema and fluctuance and what appeared to be suppurative thrombophlebitis. However, he wanted exploration, was found to have necrotizing fasciitis and wide local excision of the skin and subcutaneous tissue as well as fascia on 10/22/2020. The dimensions were 40 x 15 cm in size. He was placed on wound VAC and the wound did granulating in well. He then underwent debridement of skin and subcutaneous tissue and on 10/28/2020; however, the vast majority of the wound was granulating in well with no signs of any infection. He is now here for a split-thickness skin graft. DESCRIPTION OF PROCEDURE: The patient was brought to the operating room, laid supine on the table. After adequate IV pain and sedative medications and general endotracheal intubation, the patient was placed in left lateral decubitus position. The right lower extremity was then prepped and draped in standard surgical fashion. The open wound was measured out to be 30 x 10 cm in size. We then proceeded with our calculation and harvested the dermis from the right thigh using a dermatome at 2 inches width. This was then meshed 1:1.5. Good hemostasis was achieved from the harvest site using epinephrine-soaked gauze. We then proceeded with placement of the skin graft to the entirety of the open wound in a systematic fashion using a skin graft as well as skin juana. The open wound site was then cleaned and then Tisseel fibrin glue placed onto the skin graft. This wound was then cleaned and covered with Adaptic followed by 4 x 4 gauze followed by ABD pad followed by Kerlix, followed by Nikos wrap. The harvest site was then covered with Op-Site followed by 6-inch Nikos wrap. The patient tolerated the procedure well. We will have him leave the wound dressing on for the next week and we will have him follow up in the office to evaluate for incorporation of the graft as well as serial debridement as necessary. Job ID: [id number] DocumentID: [id number] Dictated Date: 01/08/2021 13:54:21 Glove Machine Operator Date: 01/08/2021 20:23:33 Dictated By: CONOR GODWIN MD
== END 2021-01-08 16:25 | disposition home or self-care (01) ==
LOC: SDC 09:04
PROVIDERS: ATTEND Surgery
DX: S81.801A Unspecified open wound, right lower leg, initial encounter (principal); M72.6 Necrotizing fasciitis; J44.9 Chronic obstructive pulmonary disease, unspecified; I50.9 Heart failure, unspecified; F41.9 Anxiety disorder, unspecified; F32.9 Major depressive disorder, single episode, unspecified; E11.9 Type 2 diabetes mellitus without complications; I48.91 Unspecified atrial fibrillation; K21.9 Gastro-esophageal reflux disease without esophagitis; F17.210 Nicotine dependence, cigarettes, uncomplicated; Z79.899 Other long term (current) drug therapy; Z88.0 Allergy status to penicillin; Z86.73 Personal history of transient ischemic attack (TIA), and cerebral infarction without residual deficits
CPT/HCPCS: 82962; 87081

== ENCOUNTER 2021-05-31 21:11 | Emergency (ER) | payer MEDICAID ==
[~2021-05-31] VITALS: Ht 193 cm; Wt 75.8 kg
[~2021-05-31 21:11] MED LIST changes: +OXYC1TAB16 PO; -SULF1TAB35 PO; +SULF1TAB38 PO
[2021-05-31] MEDS ORDERED: KETOROLAC 30 MG/ML VIAL IVP ONE (21:30)
--- NOTE | 2021-05-31 21:31 | ED Back Pain ---
General Chief Complaint: Back Problems Stated Complaint: LOWER RIGHT SIDE BACK PAIN Nursing Triage Note: PT IN PER POV WITH C/O RIGHT BACK AND HIP PAIN X3, DENIES INJURY. REPORTS SMOKING A LOT OF POT FOR THE PAIN. Source of Information: Patient Exam Limitations: No Limitations History of Present Illness Date Seen by Provider: May 31, 2021 Time Seen by Provider: 21:31 Initial Comments Patient is 51-year-old male who presents with right flank pain. Symptom onset was several hours prior to ED arrival. Pain is rated moderate to severe worse with palpation and trunk movement. No medications or therapies taken to prior to ED arrival. Reports history of kidney stones. No urinary frequency urgency hematuria decreased urinary output. No testicular pain tenderness or swelling. No nausea vomiting or sweats. No abdominal pain. No midline back pain. No other symptoms or complaints Location: Paraspinous Muscles Timing/Duration: Constant Severity: Severe Pain/Injury Location: None, Abdomen Method of Injury: Unknown Modifying Factors: Improves With Jarring, Improves With Movement, Improves With Pain Medication Associated Symptoms: muscle spasms, lower back pain Allergies and Home Medications Allergies Coded Allergies: Penicillins (Unverified Adverse Reaction, Unknown, 07/22/19) Home Medications Hydrocodone/Acetaminophen 1 Each Tablet, 1 TAB PO Q4H PRN for PAIN-MODERATE (5- 7) Prescribed by: ABEL PECK on 05/31/21 2325 Insulin Determir 1,000 Units/10 Ml Soln, 10 UNITS SQ BID Prescribed by: LORNA FARMER on 01/01/21 1147 Oxycodone HCl/Acetaminophen 1 Each Tablet, 1 TAB PO Q6H PRN for PAIN-MODERATE (5-7) Prescribed by: PURVI DAWSON on 01/08/21 1533 Patient Home Medication List Home Medication List Reviewed: Yes Review of Systems Constitutional: see HPI EENTM: see HPI Respiratory: see HPI Cardiovascular: see HPI Gastrointestinal: see HPI Genitourinary: see HPI Musculoskeletal: back pain, muscle pain, muscle weakness Skin: see HPI Psychiatric/Neurological: See HPI, Anxiety All Other Systems Reviewed Negative Unless Noted: Yes Past Kzuyrur-Hgklol-Qfzzra Hx Patient Social History Tobacco Use?: Yes Tobacco type used: Cigarettes Smokeless Tobacco Frequency: Unknown if Ever Used Use of E-Cig and/or Vaping Jewel: Unknown if Ever Used Substance use?: Yes Substance type: Marijuana Alcohol Use?: No Pt feels they are or have been: No Immunizations Up To Date Tetanus Booster (TDap): Unknown Influenza Vaccine Up-to-Date: No; Not Current Second COVID19 Vaccination [place]: MARCH 2021 COVID19 Vaccine Aircraft Design Engineer: YANET Seasonal Allergies Seasonal Allergies: No Past Medical History Surgeries: Yes (UGI, ? Heart Surgery per prior hx family, R lower leg lesion removed) Cardiac, Gallbladder Respiratory: Yes COPD Currently Using CPAP: No Currently Using BIPAP: No Cardiac: Yes (heart surgery at 16mo for hole in heart; [place] 4 months ago, Systolic CHF) Atrial Fibrillation, Cardiomyopathy, Heart Attack, Irregular Heartbeat Neurological: No Genitourinary: No Gastrointestinal: Yes (Gastritis, Duodenitis, frequent alcohol intake, Hep C) Hepatitis Musculoskeletal: Yes Fractures Endocrine: Yes (Refuses to monitor blood sugar and to use insulin) Diabetes, Insulin dep HEENT: No Cancer: No Psychosocial: Yes (polysubstance abuse ) Anxiety Integumentary: Yes (Hidradenitis Suppurative, frequent abscesses, necrotizing fasciitis) Blood Disorders: Yes (Hep C+) Adverse Reaction/Blood Tranf: No Family Medical History No Pertinent Family Hx Physical Exam Vital Signs Vital Signs - First Documented 05/31/21 21:15 Temp 36.2 Pulse 88 Resp 16 B/P (MAP) 125/80 (95) Pulse Ox 97 O2 Delivery Room Air Capillary Refill : Less Than 3 Seconds Height, Weight, BMI Height: '" Weight: 192lbs. 4.0oz. 87.441863kn; 20.00 BMI Method: General Appearance: Moderate Distress HEENT: PERRL/EOMI, Normal ENT Inspection Neck: Non Tender, Supple Cardiovascular: Regular Rate, Rhythm Respiratory: Lungs Clear Gastrointestinal: Non Tender, Soft Back: Normal Inspection, No CVA Tenderness, No Vertebral Tenderness, Muscle Spasm Extremity: Non Tender, No Calf Tenderness Neurologic/Psychiatric: Alert, Oriented x3 Procedures/Interventions Date of ETT Placement: Jul 23, 2019 Time of ETT Placement: 545 Progress/Results/Core Measures Results/Orders Lab Results Laboratory Tests Test 05/31/21 21:32 05/31/21 22:00 Range/Units White Blood Count 10.9 4.3-11.0 10^3/uL Red Blood Count 4.94 4.35-5.85 10^6/uL Hemoglobin 15.2 13.3-17.7 G/DL Hematocrit 45 40-54 % Mean Corpuscular Volume 90 80-99 FL Mean Corpuscular Hemoglobin 31 25-34 PG Mean Corpuscular Hemoglobin Concent 34 32-36 G/DL Red Cell Distribution Width 12.4 10.0-14.5 % Platelet Count 332 130-400 10^3/uL Mean Platelet Volume 9.7 7.4-10.4 FL Immature Granulocyte % (Auto) 0 % Neutrophils (%) (Auto) 58 42-75 % Lymphocytes (%) (Auto) 32 12-44 % Monocytes (%) (Auto) 8 0-12 % Eosinophils (%) (Auto) 2 0-10 % Basophils (%) (Auto) 0 0-10 % Neutrophils # (Auto) 6.3 1.8-7.8 X 10^3 Lymphocytes # (Auto) 3.5 1.0-4.0 X 10^3 Monocytes # (Auto) 0.8 0.0-1.0 X 10^3 Eosinophils # (Auto) 0.2 0.0-0.3 10^3/uL Basophils # (Auto) 0.0 0.0-0.1 10^3/uL Immature Granulocyte # (Auto) 0.0 0.0-0.1 10^3/uL D-Dimer 0.71 H 0.00-0.49 UG/ML Sodium Level 138 135-145 MMOL/L Potassium Level 4.3 3.6-5.0 MMOL/L Chloride Level 101 98-107 MMOL/L Carbon Dioxide Level 26 21-32 MMOL/L Anion Gap 11 5-14 MMOL/L Blood Urea Nitrogen 14 7-18 MG/DL Creatinine 0.80 0.60-1.30 MG/DL Estimat Glomerular Filtration Rate 102 BUN/Creatinine Ratio 18 Glucose Level 164 H 70-105 MG/DL Calcium Level 9.4 8.5-10.1 MG/DL Corrected Calcium 9.5 8.5-10.1 MG/DL Total Bilirubin 0.4 0.1-1.0 MG/DL Aspartate Amino Transf (AST/SGOT) 25 5-34 U/L Alanine Aminotransferase (ALT/SGPT) 20 0-55 U/L Alkaline Phosphatase 101 40-136 U/L Total Protein 7.5 6.4-8.2 GM/DL Albumin 3.9 3.2-4.5 GM/DL Urine Color YELLOW Urine Clarity CLEAR Urine pH 6.0 5-9 Urine Specific [place] >=1.030 1.016-1.022 Urine Protein 1+ H NEGATIVE Urine Glucose (UA) 1+ H NEGATIVE Urine Ketones NEGATIVE NEGATIVE Urine Nitrite NEGATIVE NEGATIVE Urine Bilirubin NEGATIVE NEGATIVE Urine Urobilinogen 0.2 < = 1.0 MG/DL Urine Leukocyte Esterase NEGATIVE NEGATIVE Urine RBC (Auto) TRACE H NEGATIVE Urine RBC 0-2 /HPF Urine WBC 0-2 /HPF Urine Squamous Epithelial Cells 0-2 /HPF Urine Crystals NONE /LPF Urine Bacteria TRACE /HPF Urine Casts NONE /LPF Urine Mucus MODERATE H /LPF Urine Culture Indicated NO My Orders Orders - ABEL PECK DO Cbc With Automated Diff (05/31/21 21:29) Comprehensive Metabolic Panel (05/31/21 21:29) Fibrin Degradation Products (05/31/21 21:29) Urinalysis (05/31/21 21:29) Ct Abdomen/Pelvis Wo (05/31/21 21:29) Ketorolac Injection (Toradol Injection) (05/31/21 21:30) Medications Given in ED Current Medications Medications Dose Ordered Sig/Scarlett Route Start Time Stop Time Status Last Admin Dose Admin Ketorolac Tromethamine 30 mg ONCE ONCE IVP 05/31/21 21:30 05/31/21 21:31 DC 05/31/21 21:47 30 MG Vital Signs/I&O 05/31/21 05/31/21 21:15 23:18 Temp 36.2 36.2 Pulse 88 80 Resp 16 14 B/P (MAP) 125/80 (95) 132/78 (95) Pulse Ox 97 96 O2 Delivery Room Air Room Air Blood Pressure Mean: 95 Departure Communication (Admissions) CT abdomen and pelvis: No acute findings per radiology report Reproducible flank pain tenderness to palpation. Patient denies injury or repetitive sprain injury.. No radicular symptoms, rash, no leg pain or swelling. No abdominal pain. Pain addressed. Lab reviewed Patient left AGAINST MEDICAL ADVICE prior to discharge instructions being provided or medical diagnoses reviewed. Impression Primary Impression: Acute right flank pain Disposition: HOME, SELF-CARE Condition: Stable Departure-Patient Inst. Referrals: ZULMA HERRERA APRN (PCP/Family) Primary Care Physician Patient Instructions: Flank Pain ED Add. Discharge Instructions: Please go home and rest. Take ibuprofen for pain and [place] as needed for additional relief. Follow-up with your PCP for reevaluation if symptoms persist All discharge instructions reviewed with patient and/or family. Voiced understanding. Scripts Hydrocodone/Acetaminophen (Hydrocodone-Acetamin 5-325 mg) 1 Each Tablet 1 TAB PO Q4H PRN for PAIN-MODERATE (5-7), #10 TAB Prov: ABEL PECK DO 05/31/21 ABEL PECK DO May 31, 2021 21:31
[2021-05-31 21:44] LABS: HEMATOCRIT 45 % (40-54); HEMOGLOBIN 15.2 G/DL (13.3-17.7); MEAN CORPUSCULAR HEMOGLOBIN 31 PG (25-34); MEAN CORPUSCULAR HGB CONC 34 G/DL (32-36); MEAN CORPUSCULAR VOLUME 90 FL (80-99); MEAN PLATELET VOLUME 9.7 FL (7.4-10.4); PLATELET COUNT 332 10^3/uL (130-400); WHITE BLOOD COUNT 10.9 10^3/uL (4.3-11.0)
[2021-05-31 21:45] LABS: BASOPHILS % (AUTO) 0 % (0-10); EOSINOPHILS # (AUTO) 0.2 10^3/uL (0.0-0.3); EOSINOPHILS % (AUTO) 2 % (0-10); LYMPHOCYTES # (AUTO) 3.5 X 10^3 (1.0-4.0); LYMPHOCYTES % (AUTO) 32 % (12-44); MONOCYTES # (AUTO) 0.8 X 10^3 (0.0-1.0); MONOCYTES % (AUTO) 8 % (0-12); NEUTROPHILS # (AUTO) 6.3 X 10^3 (1.8-7.8); NEUTROPHILS % (AUTO) 58 % (42-75)
--- NOTE | 2021-05-31 21:53 | Diagnostic Imaging Report ---
PROCEDURE: CT abdomen and pelvis without contrast. TECHNIQUE: Multiple contiguous axial images were obtained through the abdomen and pelvis without the use of intravenous contrast. Auto Exposure Controls were utilized during the CT exam to meet ALARA standards for radiation dose reduction. DATE: May 31, 2021. COMPARISON: Abdominal radiographs March 28, 2021. INDICATION: 51-year-old male, right flank pain for 3 days. FINDINGS: There are limitations for evaluation of the abdominal organs, neoplastic processes, abscess, and limited evaluation of the vasculature relating to the lack of intravenous contrast. The visualized portions of the lung bases are clear. The heart is not enlarged. There is no pericardial effusion. The liver is unremarkable in size and contour. The patient is status post cholecystectomy. There is no biliary ductal dilatation. The main pancreatic duct is not abnormally dilated. Limited noncontrast evaluation of the pancreatic parenchyma is unremarkable. The spleen is normal in size. The adrenal glands are unremarkable. Limited noncontrast evaluation of the renal parenchyma is unremarkable. 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 There is no identified renal or ureteral stone. The urinary bladder is unremarkable. The intestinal tract is not distended. The appendix is unremarkable and well seen. There is no free intraperitoneal air. There is no drainable fluid collection. There is no free pelvic fluid. There are atherosclerotic calcifications. There is no identified abnormally enlarged lymph node in the abdomen or pelvis meeting CT size criteria for adenopathy. There is no identified acute bony abnormality. IMPRESSION: CT ABDOMEN AND PELVIS. 1. No identified acute abnormality in the abdomen or pelvis. 2. Incidentally noted duplicated right urinary collecting system. Dictated by: Dictated on workstation # [id number]
[2021-05-31 22:06] LABS: CREATININE SERUM 0.8 MG/DL (0.60-1.30); POTASSIUM 4.3 MMOL/L (3.6-5.0)
[2021-05-31 22:07] LABS: ALBUMIN 3.9 GM/DL (3.2-4.5); BILIRUBIN,TOTAL 0.4 MG/DL (0.1-1.0); CALCIUM 9.4 MG/DL (8.5-10.1); TOTAL PROTEIN 7.5 GM/DL (6.4-8.2)
[2021-05-31 22:26] LABS: CLARITY,URINE CLEAR; COLOR,URINE YELLOW; GLUCOSE, URINE (UA) 1+ (NEGATIVE); PROTEIN,URINE 1+ (NEGATIVE)
[2021-05-31 22:27] LABS: BACTERIA,URINE TRACE /HPF; BILIRUBIN,URINE NEGATIVE (NEGATIVE); KETONES,URINE NEGATIVE (NEGATIVE); LEUKOCYTE ESTERASE ,URINE NEGATIVE (NEGATIVE); NITRITE,URINE NEGATIVE (NEGATIVE); RBC,URINE 0-2 /HPF; SQUAMOUS EPITHELIAL CELL,UR 0-2 /HPF; WBC,URINE 0-2 /HPF
[2021-05-31 23:18] VITALS: BP 132/78
[2021-05-31] MEDS ORDERED: ACHD5005 PO (23:24)
== END 2021-05-31 23:18 | disposition left against medical advice (07) ==
LOC: EDUNIT# 21:11 → ER FS 21:13
DX: R10.9 Unspecified abdominal pain (principal); J44.9 Chronic obstructive pulmonary disease, unspecified; I25.2 Old myocardial infarction; E11.9 Type 2 diabetes mellitus without complications; Z79.4 Long term (current) use of insulin; Z79.899 Other long term (current) drug therapy
CPT/HCPCS: 36415; 74176; 80053; 81000; 85025; 85379; 96374

== ENCOUNTER 2021-09-08 13:07 | Emergency (ER) | payer MEDICAID ==
[~2021-09-08] VITALS: Ht 193 cm; Wt 83.1 kg
[~2021-09-08 13:07] MED LIST changes: +ACHD5005 PO; -DOXY100C2 PO; +DOXY100C5 PO; -MORP100S3 PO; +MORP100S7 PO
--- OUTSIDE RECORDS SUMMARY | 2021-09-08 13:12 | XMS REPORT | Encounter Summary ---
Author Author [facility] Organization [facility] Address Unknown Phone Unavailable Care Team Providers Care Engineer System Administrator Name Role Phone Selina Mccauley MD Unavailable Anita Murdock MD Unavailable Kirsten Rooney NP PCP Encounter Details Care Team Description Date Type Department Farideh Mortensen RN 07/20/2021 [facility] [address] [place] [address]. [address], [address] [place] [address] Social History Date Tobacco Use Types Packs/Day Years Used Heavy Tobacco Smoker Cigarettes 1 Smokeless Tobacco: Never Used Comments Alcohol Use Standard Drinks/Week 6 packs yearly Not Currently 0 (1 standard drink = 0.6 o z pure alcohol) Alcohol Habits Answer Date Recorded How often do you have a drink containing alcohol? No t asked How many drinks containing alcohol do you have on No t asked a typical day when you are drinking? How often do you have six or more drinks on one Not asked occasion? Comment: 6 packs yearly 05/08/2018 Sex Assigned at Date Recorded Not on file Date Recorded COVID-19 Exposure Response 07/01/2021 1:05 PM CDT In the last month, have you been in contact with No / Unsure someone who was confirmed or suspected to have Coronavirus / COVID-19? documented as of this encounter Functional Status Date of Assessment Functional Status Response 05/08/2018 Does the patient have a hearing impairment: No 05/08/2018 Does the patient have a visual impairment: Yes 05/08/2018 Does the patient have impaired ambulation: No 05/08/2018 Does the patient have an activity of daily living No (ADL) impairment: 05/08/2018 Does the patient have an instrumental activity of No daily living (IADL) impairment: Date of Assessment Cognitive Status Response 05/08/2018 Does the patient have a cognitive impairment: No documented as of this encounter Miscellaneous Notes * Telephone Encounter - Faridhe Mortensen RN - 07/20/2021 5:38 PM CDT Attempted to call patient to review results. LM relating no significant abnorma l rhythms, and left call back number for pt to return call to further discuss. * Telephone Encounter - Farideh Mortensen RN - 07/20/2021 10:27 AM CDT ----- Message from Darnell Goldsmith MD sent at 07/19/2021 2:49 PM CDT ----- Lon najera,Would you mind reaching out to Silvestre and letting him know that his card iac Holter monitor did not demonstrate any significant arrhythmia. His symptoms did not correlate with abnormal heart rhythm. Looks like he has an echocardiog ahmet in a couple of days. We will update him on results when available.Thanks! 07/20/2021 10:30 AM Attempted to call patient to review results of Holter and rec as per WTL. LMOM That Holter did not show any significant abnormal rhythm but left call back number for pt to r/c to further discuss results. (Pt not MyChart active) documented in this encounter Plan of Treatment Not on filedocumented as of this encounter Visit Diagnoses Not on filedocumented in this encounter Additional Health Concerns Assessment Noted Time PHQ-2 Depression Total Score: 0 07/01/2021 3:00 PM CDT documented as of this encounter
--- OUTSIDE RECORDS SUMMARY | 2021-09-08 13:12 | XMS REPORT | Clinical Summary ---
Author Author [facility] Address Unknown Phone Unavailable Care Team Providers Care Driver License Technician Name Role Phone PCP Unavailable Allergies Comments Active Allergy Reactions Severity Noted Date Penicillins 03/25/2013 Makes him feel like he is on meth Quetiapine Fumerate Other (See Low 03/25/2013 Comments) Medications End Date Status Medication Sig Dispensed Refills Start Date Active clonazePAM (KLONOPIN) 0.5 Take 1 tablet 60 tablet 1 MG tablet (0.5 mg 3 total) by mouth 3 (three) times daily as needed for Anxiety. Active LEVEMIR, insulin detemir, Inject 35 10 mL 1 (LEVEMIR) 100 UNIT/ML Units into 3 injection the skin 2 (two) times daily. Active NOVOLOG, insulin aspart, Inject 0-0.28 10 mL 1 (NOVOLOG) 100 UNIT/ML mLs (0-28 3 injection Units total) into the skin 4 (four) times daily before meals and nightly. Active NOVOLOG, insulin aspart, Inject 0.2 10 mL 1 0 (NOVOLOG) 100 UNIT/ML mLs (20 Units 3 injection total) into the skin 3 (three) times daily with meals. Active paliperidone (INVEGA) 3 Take 1 tablet 30 tablet 1 MG 24 hr tablet (3 mg total) 3 by mouth nightly. Active traMADol (ULTRAM) 50 MG Take 2 30 tablet 1 tablet tablets (100 3 mg total) by mouth 3 (three) times daily as needed (back pain/ pain). Active traZODone (DESYREL) 100 Take 1 tablet 30 tablet 1 201 MG tablet (100 mg 3 total) by mouth nightly as needed for Sleep. Active Problems Problem Noted Date Noncompliance with medication regimen 03/26/2013 Polysubstance abuse 03/26/2013 Suicidal ideation 03/26/2013 Mood disorder 03/25/2013 Social History Date Tobacco Use Types Packs/Day Years Used Current Every Day Smoker 2 Tobacco Cessation: Ready to Quit: No Comments Alcohol Use Standard Drinks/Week last drank Sat night Yes 0 (1 standard drink = 0.6 o z pure alcohol) Control Partners Comments Sexually Active Condom Female Yes Sex Assigned at Date Recorded Not on file Last Filed Vital Signs Reading Time Taken Comments Vital Sign 106/63 03/28/2013 6:09 AM CDT Blood Pressure 80 03/28/2013 6:09 AM CDT Pulse 36.6 C (97.8 F) 03/28/2013 6:09 AM CDT Temperature 16 03/28/2013 6:09 AM CDT Respiratory Rate 98% 03/25/2013 4:46 PM CDT Oxygen Saturation - - Inhaled Oxygen Concentration 83.9 kg (185 lb) 03/25/2013 4:45 PM CDT Weight 193 cm (6' 4") 03/25/2013 4:45 PM CDT Height 22.52 03/25/2013 4:45 PM CDT Body Mass Index Plan of Treatment Health Maintenance Due Date Last Done Comments COVID-19 Vaccine (1) 1982 Hepatitis C Screening 1988 DTaP,Tdap,and Td Vaccines 1989 (1 - Tdap) MMR Vaccines-Adult 1989 Colon Cancer Screening 2020 Zoster Vaccine (1 of 2) 2020 Influenza Vaccine (#1) 2021 Pneumo-Vaccine: 65+Yrs (1 2035 of 1 - PPSV23) HIB Vaccines Aged Out No longer eligible based on patient's age to complete this topic IPV Vaccines Aged Out No longer eligible based on patient's age to complete this topic Meningococcal Vaccine Aged Out No longer eligib le based on patient's age to complete this topic Pneumo-Vaccine: Peds (0-5 Aged Out No longer el igible based on patient's age to Yrs) & At-Risk Patients complete this topic (6-64 Yrs) Rotavirus Vaccines Aged Out No longer eligible based on patient's age to complete this topic Results Not on filefrom Last 3 Months Advance Directives For more information, please contact: [phone] Date Inactivated Comments Code Status Date Activated 03/28/2013 5:43 PM Full Code 03/25/2013 5:13 PM
[2021-09-08] MEDS ORDERED: fentaNYL INJ 100 MCG/2 ML AMP IVP STA ×2 (13:23→14:40)
[2021-09-08] MEDS ORDERED: inSUlin (REGULAR) HUMAN 1 UNIT/0.01 ML (CHARGE PER UNIT) IV STA (13:23)
[2021-09-08] MEDS ORDERED: NS IV 1000 ML 1,000 ML IV STA ×2 (13:23→14:40)
[2021-09-08 13:28] LABS: BILIRUBIN,URINE NEGATIVE (NEGATIVE); CLARITY,URINE CLEAR; COLOR,URINE YELLOW; GLUCOSE, URINE (UA) 3+ (NEGATIVE); KETONES,URINE NEGATIVE (NEGATIVE); LEUKOCYTE ESTERASE ,URINE NEGATIVE (NEGATIVE); NITRITE,URINE NEGATIVE (NEGATIVE); PROTEIN,URINE 1+ (NEGATIVE)
[2021-09-08] MEDS ORDERED: ONDANSETRON 4 MG/2 ML (SDV) Z0FRAN IVP ONE (13:30)
--- NOTE | 2021-09-08 13:34 | ED GI ---
General Chief Complaint: Abdominal/GI Problems Stated Complaint: VOMITING Source of Information: Patient Exam Limitations: No Limitations History of Present Illness Date Seen by Provider: Sep 08, 2021 Time Seen by Provider: 13:11 Initial Comments Here with report of severe abdominal pain associated with nausea and vomiting. Patient is diabetic and chronic marijuana user. He has been seen for similar in the past but states this pain is different and hurts worse. Admits to marijuana yesterday. Had hard stool yesterday. Denies any recent alcohol. Denies fever or chills. Denies blood in his vomit or stool. Last blood sugars were 200s but has not checked his blood sugar for a few days. Did take his long-acting insulin this morning but not his insulin with meals. He has not eaten today. Did try Phenergan at about 7:30 AM and that has not helped. Timing/Duration: 24 Hours, Getting Worse Severity/Quality: Moderate, Aching, Cramping Location: Generalized Abdomen Radiation: No Radiation Activities at Onset: None Modifying Factors: Worsens With Eating, Worsens With Movement; Improves With Vomiting Associated Symptoms: No Chest Pain, No Fever/Chills; Fatigue, Nausea/Vomiting; No Shortness of Air, No Swelling/Mass in Abdomen; Weakness Allergies and Home Medications Allergies Coded Allergies: Penicillins (Unverified Adverse Reaction, Unknown, 07/22/19) Patient Home Medication List Home Medication List Reviewed: Yes Hydrocodone/Acetaminophen (Hydrocodone-Acetamin 5-325 mg) 1 Each Tablet, 1 TAB PO Q4H PRN for PAIN-MODERATE (5-7) Prescribed by: ABEL PECK on 05/31/21 2325 Insulin Determir (Levemir) 1,000 Units/10 Ml Soln, 10 UNITS SQ BID Prescribed by: LORNA FARMER on 01/01/21 1147 Oxycodone HCl/Acetaminophen (Percocet 7.5-325 mg Tablet) 1 Each Tablet, 1 TAB PO Q6H PRN for PAIN-MODERATE (5-7) Prescribed by: PURVI DAWSON on 01/08/21 1533 Promethazine HCl (Promethazine Tablet) 25 Mg Tablet, 25 MG PO Q8H PRN for NAUSEA/VOMITING Prescribed by: DAMEON LNYN on 09/08/21 1624 Review of Systems Review of Systems Constitutional: see HPI; No chills, No fever EENTM: No Nose Congestion, No Throat Pain Respiratory: Denies Orthopnea, Denies Shortness of Air Cardiovascular: Denies Chest Pain, Denies Edema Gastrointestinal: Abdominal Pain, Constipated, Vomiting Genitourinary: No Symptoms Reported Musculoskeletal: No back pain, No muscle pain Skin: no symptoms reported Psychiatric/Neurological: Denies Headache, Denies Weakness Endocrine: No Symptoms Reported All Other Systems Reviewed Negative Unless Noted: Yes Past Josjafs-Pymuwo-Qxyhlj Hx Patient Social History Tobacco Use?: Yes Tobacco type used: Cigarettes Smoking Status: Current Everyday Smoker Use of E-Cig and/or Vaping dev: No Substance use?: Yes Substance type: Marijuana Additional substance use comme: HX: IV Drug use. Reports last use 5 years ago Alcohol Use?: No Pt feels they are or have been: No Immunizations Up To Date Tetanus Booster (TDap): Unknown First/Initial COVID19 Vaccinat: MARCH 2021 Second COVID19 Vaccination [place]: MARCH 2021 Seasonal Allergies Seasonal Allergies: No Past Medical History Surgery/Hospitalization HX: Insulin dependent DM Surgeries: Yes (UGI, ? Heart Surgery per prior hx family, R lower leg lesion removed) Cardiac, Gallbladder Respiratory: Yes COPD Currently Using CPAP: No Currently Using BIPAP: No Cardiac: Yes (heart surgery at 16mo for hole in heart; [place] 4 months ago, Systolic CHF) Atrial Fibrillation, Cardiomyopathy, Heart Attack, Irregular Heartbeat Neurological: No Genitourinary: No Gastrointestinal: Yes (Gastritis, Duodenitis, frequent alcohol intake, Hep C) Hepatitis Musculoskeletal: Yes Fractures Endocrine: Yes (Refuses to monitor blood sugar and to use insulin) Diabetes, Insulin dep HEENT: No Cancer: No Psychosocial: Yes (polysubstance abuse ) Anxiety Integumentary: Yes (Hidradenitis Suppurative, frequent abscesses, necrotizing fasciitis) Blood Disorders: Yes (Hep C+) Adverse Reaction/Blood Tranf: No Family Medical History Reviewed Nursing Family Hx No Pertinent Family Hx Physical Exam Vital Signs Vital Signs - First Documented 09/08/21 13:10 Temp 36.1 Pulse 87 Resp 22 B/P (MAP) 167/88 (114) Pulse Ox 97 O2 Delivery Room Air Capillary Refill : Height/Weight/BMI Height: '" Weight: 192lbs. 4.0oz. 87.237871ef; 20.00 BMI Method: General Appearance: moderate distress, other (Chronically ill) HEENT: PERRL/EOMI, pharynx normal, other (Mucous membranes dry) Neck: full range of motion, supple Respiratory: lungs clear, normal breath sounds Cardiovascular: regular rate, rhythm, no murmur Gastrointestinal: tenderness, other (Hard abdomen overall but does not have severe tenderness anywhere just mild tenderness to palpation everywhere.) Extremities: non-tender, normal inspection Back: normal inspection, no CVA tenderness, no vertebral tenderness Neurologic/Psychiatric: alert, oriented x 3 Skin: normal color, warm/dry Procedures/Interventions Date of ETT Placement: Jul 23, 2019 Time of ETT Placement: 05 Progress/Results/Core Measures Results/Orders Lab Results Laboratory Tests Test 09/08/21 13:10 09/08/21 13:16 09/08/21 13:18 09/08/21 16:23 Range/Units Urine Color YELLOW Urine Clarity CLEAR Urine pH 7.0 5-9 Urine Specific [place] 1.015 L 1.016-1.022 Urine Protein 1+ H NEGATIVE Urine Glucose (UA) 3+ H NEGATIVE Urine Ketones NEGATIVE NEGATIVE Urine Nitrite NEGATIVE NEGATIVE Urine Bilirubin NEGATIVE NEGATIVE Urine Urobilinogen 0.2 < = 1.0 MG/DL Urine Leukocyte Esterase NEGATIVE NEGATIVE Urine RBC (Auto) TRACE-I H NEGATIVE Urine RBC 2-5 H /HPF Urine WBC RARE /HPF Urine Squamous Epithelial Cells RARE /HPF Urine Crystals NONE /LPF Urine Bacteria NEGATIVE /HPF Urine Casts NONE /LPF Urine Mucus NEGATIVE /LPF Urine Culture Indicated NO White Blood Count 13.5 H 4.3-11.0 10^3/uL Red Blood Count 4.81 4.30-5.52 10^6/uL Hemoglobin 15.0 13.3-17.7 g/dL Hematocrit 44 40-54 % Mean Corpuscular Volume 91 80-99 fL Mean Corpuscular Hemoglobin 31 25-34 pg Mean Corpuscular Hemoglobin Concent 34 32-36 g/dL Red Cell Distribution Width 12.7 10.0-14.5 % Platelet Count 301 130-400 10^3/uL Mean Platelet Volume 10.0 9.0-12.2 fL Immature Granulocyte % (Auto) 1 % Neutrophils (%) (Auto) 84 H 42-75 % Lymphocytes (%) (Auto) 11 L 12-44 % Monocytes (%) (Auto) 4 0-12 % Eosinophils (%) (Auto) 0 0-10 % Basophils (%) (Auto) 0 0-10 % Neutrophils # (Auto) 11.4 H 1.8-7.8 X 10^3 Lymphocytes # (Auto) 1.4 1.0-4.0 X 10^3 Monocytes # (Auto) 0.5 0.0-1.0 X 10^3 Eosinophils # (Auto) 0.0 0.0-0.3 10^3/uL Basophils # (Auto) 0.1 0.0-0.1 10^3/uL Immature Granulocyte # (Auto) 0.1 0.0-0.1 10^3/uL Sodium Level 138 135-145 MMOL/L Potassium Level 4.8 3.6-5.0 MMOL/L Chloride Level 101 98-107 MMOL/L Carbon Dioxide Level 26 21-32 MMOL/L Anion Gap 11 5-14 MMOL/L Blood Urea Nitrogen 8 7-18 MG/DL Creatinine 0.69 0.60-1.30 MG/DL Estimat Glomerular Filtration Rate 121 BUN/Creatinine Ratio 12 Glucose Level 331 H 70-105 MG/DL Calcium Level 9.4 8.5-10.1 MG/DL Corrected Calcium 9.2 8.5-10.1 MG/DL Total Bilirubin 0.4 0.1-1.0 MG/DL Aspartate Amino Transf (AST/SGOT) 24 5-34 U/L Alanine Aminotransferase (ALT/SGPT) 22 0-55 U/L Alkaline Phosphatase 100 40-136 U/L C-Reactive Protein 0.30 <0.50 MG/DL Total Protein 7.2 6.4-8.2 GM/DL Albumin 4.3 3.2-4.5 GM/DL Glucometer 320 H 199 H 70-110 MG/DL My Orders Orders - DAMEON LYNN MD Cbc With Automated Diff (09/08/21 13:23) Comprehensive Metabolic Panel (09/08/21 13:23) Ua Culture If Indicated (09/08/21 13:23) Insulin (Regular) Human (Novolin R (Per (09/08/21 13:23) Fentanyl Inj (Sublimaze Injection) (09/08/21 13:23) Ondansetron Injection (Zofran Injectio (09/08/21 13:30) Ns Iv 1000 Ml (Sodium Chloride 0.9%) (09/08/21 13:23) Ed Iv/Invasive Line Start (09/08/21 13:23) Crp Fs (09/08/21 13:16) Ct Abdomen/Pelvis W (09/08/21 13:53) Iohexol Injection (Omnipaque 350 Mg/Ml 1 (09/08/21 14:00) Received Contrast (Hold Metformin- Contr (09/08/21 14:00) Sodium Chloride Flush (Catheter Flush Sy (09/08/21 14:00) Ns (Ivpb) (Sodium Chloride 0.9% Ivpb Bag (09/08/21 14:00) Promethazine Injection (Phenergan Injec (09/08/21 14:10) Ns Iv 1000 Ml (Sodium Chloride 0.9%) (09/08/21 14:40) Fentanyl Inj (Sublimaze Injection) (09/08/21 14:40) Hydrocodone/Apap 7.5/325 Tab (Lortab 7. (09/08/21 15:58) Medications Given in ED Current Medications Medications Dose Ordered Sig/Scarlett Route Start Time Stop Time Status Last Admin Dose Admin Iohexol 100 ml ONCE ONCE IV 09/08/21 14:00 09/08/21 14:01 DC 09/08/21 14:08 100 ML Ondansetron HCl 8 mg ONCE ONCE IVP 09/08/21 13:30 09/08/21 13:31 DC 09/08/21 13:33 8 MG Sodium Chloride 10 ml NEEDED PRN IV 09/08/21 14:00 09/08/21 16:37 DC 09/08/21 14:08 10 ML Sodium Chloride 100 ml ONCE ONCE IV 09/08/21 14:00 09/08/21 14:01 DC 09/08/21 14:08 100 ML Vital Signs/I&O 09/08/21 09/08/21 13:10 16:37 Temp 36.1 36.1 Pulse 87 85 Resp 22 22 B/P (MAP) 167/88 (114) 145/80 Pulse Ox 97 97 O2 Delivery Room Air Room Air FSBG Bedside Testing Finger Stick Blood Glucose: 320 Progress Progress Note : Progress Note Seen and evaluated. IV, labs, UA, normal saline 1 L bolus, Zofran 8 mg IV and fentanyl 50 mcg IV ordered. Anticipate CT scan but pending chemistry for type. Monitor patient. 1355: Kidney function is normal. We will go ahead and do CT abdomen pelvis with contrast to rule out obstruction, mass or other significant abnormality given his pain that is worse today than his typical presentation. 1442: CT complete. Patient did receive Phenergan 25 mg IV. He is resting peacefully. I will come up to give him results of the CT scan and he realized he is still in some pain. We will give 50 mcg of fentanyl IV and another liter of normal saline to ensure that he is adequately hydrated. No significant abnormalities noted on CT scan and labs do not show significant abnormalities either. No ketones in the urine. Some of this may be related to heavy marijuana use as well as constipation and slow bowel transit secondary to diabetes. He is nearly out of his Phenergan prescription so we will refill that. We will recheck after second liter of fluid complete with anticipated discharge home. 1609: We will give 1 dose of pain medicine as patient is complaining of pain. 1620: Tolerated med. Discharged home with return precautions. Patient verbalized understanding instructions and agreement with plan Diagnostic Imaging Diagonstic Imaging: CT Plain Films/CT/US/NM/MRI: abdomen, pelvis Comments [facility], [place] NAME: LEONOR LAZARO [facility] REC#: [id number] PT STATUS: REG ER : 1970 PHYSICIAN: DAMEON LYNN MD ADMIT DATE: 09/08/21/ER FS Draft Date of Exam:09/08/21 CT ABDOMEN/PELVIS W PROCEDURE: CT abdomen and pelvis with contrast. TECHNIQUE: Multiple contiguous axial images were obtained through the abdomen and pelvis after administration of intravenous contrast. Auto Exposure Controls were utilized during the CT exam to meet ALARA standards for radiation dose reduction. All CT scans use one or more of the following dose optimizing techniques: automated exposure control, MA and/or KvP adjustment based on patient size and exam type or iterative reconstruction. INDICATION: 51-year-old male, generalized abdominal pain along with nausea and vomiting x3 days. Loose stools earlier today. CORRELATION STUDY: 05/31/2021 FINDINGS: Examination compromised by patient motion. LOWER THORAX: Heart size enlarged. Small hiatal hernia. LIVER: Unremarkable. GALLBLADDER: Cholecystectomy. No significant bile duct dilatation. SPLEEN: Unremarkable. PANCREAS: Mild fatty atrophic changes. ADRENAL GLANDS: Small, 11 mm nodule left adrenal gland. KIDNEYS: Normal configuration and enhancement. No calcification or obstruction. ABDOMINAL AORTA: Mild wall calcification, nonaneurysmal. A few shotty aortocaval lymph nodes. GASTROINTESTINAL TRACT: Stomach is mildly distended with fluid. No small bowel obstruction. There is mild stool throughout the colon. No large fecal impaction. Normal appendix is present. A few distal colonic diverticula without evidence for acute diverticulitis. No significant ascites. URINARY BLADDER: Unremarkable. REPRODUCTIVE: Unremarkable. OSSEOUS STRUCTURES: No acute abnormality. OTHER: None. IMPRESSION: 1. Negative for acute abnormality of the abdomen or pelvis. Dictated on workstation # [id number] Dict: 09/08/21 1420 Trans: 09/08/21 1426 DO [id number] Interpreted by: GAB ONOFRE DO Electronically signed by: Reviewed: Reviewed by Me Departure Impression Primary Impression: Abdominal pain, generalized Additional Impressions: Cannabis hyperemesis syndrome concurrent with and due to cannabis abuse Vomiting Qualified Codes: R11.2 - Nausea with vomiting, unspecified Constipation Qualified Codes: K59.01 - Slow transit constipation Uncontrolled diabetes mellitus Qualified Codes: E10.65 - Type 1 diabetes mellitus with hyperglycemia Disposition: HOME, SELF-CARE Condition: Stable Departure-Patient Inst. Decision time for Depature: 16:04 Referrals: ZULMA HERRERA APRN (PCP/Family) Primary Care Physician Patient Instructions: Abdominal Pain, Adult ED, Cannabis Hyperemesis Syndrome, Constipation, Adult (DC), Nausea and Vomiting, Adult, High Blood Sugar, Adult ED Add. Discharge Instructions: All discharge instructions reviewed with patient and/or family. Voiced understanding. Take medication as directed. It is very important that you control your blood sugars appropriately. Monitor your blood sugars and avoid sugary foods. Take insulin as directed. You may use the Phenergan as needed for nausea and vomiting. The marijuana use is very likely the cause of your abdominal pain and vomiting. You should quit marijuana use. Sometimes warm showers and/or capsa icin cream to the abdomen can help reduce those symptoms. Follow-up with your doctor in a few days for recheck. You may use [id number] Dulcolax suppositories to relieve constipation. You may also try a fleets enema which you may pickler helper [id number] as well. Otherwise you may take MiraLAX or the generic 1 capful twice daily for the next 3 days and then daily thereafter to keep stools soft. You may increase or decrease the dose to keep stools in normal range. Discussed constipation with your doctor as well. Return for worse pain, fever, vomiting, weakness, breathing problems or other concerns as needed. Scripts Promethazine HCl (Promethazine Tablet) 25 Mg Tablet 25 MG PO Q8H PRN for NAUSEA/VOMITING, #15 TAB 0 Refills Prov: DAMEON LYNN MD 09/08/21 DAMEON LYNN MD Sep 08, 2021 13:34
[2021-09-08 13:38] LABS: BACTERIA,URINE NEGATIVE /HPF; SQUAMOUS EPITHELIAL CELL,UR RARE /HPF; WBC,URINE RARE /HPF
[2021-09-08 13:39] LABS: BASOPHILS % (AUTO) 0 % (0-10); EOSINOPHILS % (AUTO) 0 % (0-10); HEMATOCRIT 44 % (40-54); LYMPHOCYTES % (AUTO) 11 % (12-44); MEAN CORPUSCULAR HEMOGLOBIN 31 pg (25-34); MEAN CORPUSCULAR HGB CONC 34 g/dL (32-36); MEAN CORPUSCULAR VOLUME 91 fL (80-99); MONOCYTES % (AUTO) 4 % (0-12); NEUTROPHILS # (AUTO) 11.4 X 10^3 (1.8-7.8); NEUTROPHILS % (AUTO) 84 % (42-75); PLATELET COUNT 301 10^3/uL (130-400); WHITE BLOOD COUNT 13.5 10^3/uL (4.3-11.0)
[2021-09-08 13:40] LABS: BASOPHILS # (AUTO) 0.1 10^3/uL (0.0-0.1); LYMPHOCYTES # (AUTO) 1.4 X 10^3 (1.0-4.0); MONOCYTES # (AUTO) 0.5 X 10^3 (0.0-1.0)
[2021-09-08 13:48] LABS: BILIRUBIN,TOTAL 0.4 MG/DL (0.1-1.0); CALCIUM 9.4 MG/DL (8.5-10.1); CREATININE SERUM 0.69 MG/DL (0.60-1.30); POTASSIUM 4.8 MMOL/L (3.6-5.0)
[2021-09-08 13:49] LABS: ALBUMIN 4.3 GM/DL (3.2-4.5); TOTAL PROTEIN 7.2 GM/DL (6.4-8.2)
[2021-09-08] MEDS ORDERED: HOLD METFORMIN - RECEIVED CONTRAST 20 ML VIAL IV SCH (14:00)
[2021-09-08] MEDS ORDERED: NS 100 ML (IVPB) BAG IV ONE (14:00)
[2021-09-08] MEDS ORDERED: IOHEXOL 350 MG/ML 100 ML (OMNIPAQUE 350) VIAL IV ONE (14:00)
[2021-09-08] MEDS ORDERED: CATHETER FLUSH 10 ML SYR IV PRN (14:00)
[2021-09-08] MEDS ORDERED: PROMETHAZINE INJ 25 MG/ML (PHENERGAN) AMP IVP STA (14:10)
--- NOTE | 2021-09-08 14:26 | Diagnostic Imaging Report ---
PROCEDURE: CT abdomen and pelvis with contrast. TECHNIQUE: Multiple contiguous axial images were obtained through the abdomen and pelvis after administration of intravenous contrast. Auto Exposure Controls were utilized during the CT exam to meet ALARA standards for radiation dose reduction. All CT scans use one or more of the following dose optimizing techniques: automated exposure control, MA and/or KvP adjustment based on patient size and exam type or iterative reconstruction. INDICATION: 51-year-old male, generalized abdominal pain along with nausea and vomiting x3 days. Loose stools earlier today. CORRELATION STUDY: 05/31/2021 FINDINGS: Examination compromised by patient motion. LOWER THORAX: Heart size enlarged. Small hiatal hernia. LIVER: Unremarkable. GALLBLADDER: Cholecystectomy. No significant bile duct dilatation. SPLEEN: Unremarkable. PANCREAS: Mild fatty atrophic changes. ADRENAL GLANDS: Small, 11 mm nodule left adrenal gland. KIDNEYS: Normal configuration and enhancement. No calcification or obstruction. ABDOMINAL AORTA: Mild wall calcification, nonaneurysmal. A few shotty aortocaval lymph nodes. GASTROINTESTINAL TRACT: Stomach is mildly distended with fluid. No small bowel obstruction. There is mild stool throughout the colon. No large fecal impaction. Normal appendix is present. A few distal colonic diverticula without evidence for acute diverticulitis. No significant ascites. URINARY BLADDER: Unremarkable. REPRODUCTIVE: Unremarkable. OSSEOUS STRUCTURES: No acute abnormality. OTHER: None. IMPRESSION: 1. Negative for acute abnormality of the abdomen or pelvis. Dictated by: Dictated on workstation # [id number]
[2021-09-08] MEDS ORDERED: HYDROcodone/APAP 7.5 MG/325 MG (LORTAB, LORCET PLUS) TABLET PO STA (15:58)
[2021-09-08] MEDS ORDERED: PROM25TA14 PO (16:24)
[2021-09-08 16:37] VITALS: BP 145/80
== END 2021-09-08 16:37 | disposition home or self-care (01) ==
LOC: EDUNIT# 13:07 → ER FS 13:08
DX: R10.84 Generalized abdominal pain (principal); R11.2 Nausea with vomiting, unspecified; F12.10 Cannabis abuse, uncomplicated; K59.00 Constipation, unspecified; J44.9 Chronic obstructive pulmonary disease, unspecified; I25.2 Old myocardial infarction; I50.9 Heart failure, unspecified; E11.65 Type 2 diabetes mellitus with hyperglycemia; F17.210 Nicotine dependence, cigarettes, uncomplicated; Z79.4 Long term (current) use of insulin
CPT/HCPCS: 36415; 74177; 80053; 81000; 82947; 85025; 86141

== ENCOUNTER 2021-09-10 12:20 | Observation (INO) | payer MEDICAID ==
[~2021-09-10] VITALS: Ht 190.5 cm; Wt 84.1 kg
[~2021-09-10 12:20] MED LIST changes: +PROM25TA14 PO
--- NOTE | 2021-09-10 12:32 | ED GI ---
General Stated Complaint: VOMITING History of Present Illness Date Seen by Provider: Sep 10, 2021 Time Seen by Provider: 12:26 Initial Comments 51-year-old male presents with vomiting and abdominal pain. Patient was seen here 2 days ago at that time had a negative work-up including labs and CT scan. Patient admits to at least weekly if not more frequently marijuana use. He used marijuana again yesterday. Today he is complaining of lower abdominal pain. He reports that he sat in a hot bath and improved the pain yesterday. Patient was given a prescription for Phenergan when he was here in the ER. Patient reports some moderate constipation which was suspected on his visit 2 days ago. He has not take anything for the constipation. Patient denies any fevers or chills. Allergies and Home Medications Allergies Coded Allergies: Penicillins (Unverified Adverse Reaction, Unknown, 07/22/19) Patient Home Medication List Home Medication List Reviewed: Yes Hydrocodone/Acetaminophen (Hydrocodone-Acetamin 5-325 mg) 1 Each Tablet, 1 TAB PO Q4H PRN for PAIN-MODERATE (5-7) Prescribed by: ABEL PECK on 05/31/21 2325 Insulin Determir (Levemir) 1,000 Units/10 Ml Soln, 10 UNITS SQ BID Prescribed by: LORNA FARMER on 01/01/21 1147 Oxycodone HCl/Acetaminophen (Percocet 7.5-325 mg Tablet) 1 Each Tablet, 1 TAB PO Q6H PRN for PAIN-MODERATE (5-7) Prescribed by: PURVI DAWSON on 01/08/21 1533 Promethazine HCl (Promethazine Tablet) 25 Mg Tablet, 25 MG PO Q8H PRN for NAUSEA /VOMITING Prescribed by: DAMEON LYNN on 09/08/21 1624 Review of Systems Review of Systems Constitutional: No chills, No fever Respiratory: Denies Cough Cardiovascular: Denies Chest Pain Gastrointestinal: Abdominal Pain, Constipated, Nausea, Vomiting Genitourinary: No Symptoms Reported Musculoskeletal: no symptoms reported Skin: no symptoms reported Psychiatric/Neurological: No Symptoms Reported Endocrine: No Symptoms Reported Hematologic/Lymphatic: No Symptoms Reported Past Kyezucd-Hbzglv-Zqssya Hx Immunizations Up To Date Tetanus Booster (TDap): Unknown First/Initial COVID19 Vaccinat: MARCH 2021 Second COVID19 Vaccination [place]: MARCH 2021 Seasonal Allergies Seasonal Allergies: No Past Medical History Surgery/Hospitalization HX: Insulin dependent DM Surgeries: Yes (UGI, ? Heart Surgery per prior hx family, R lower leg lesion removed) Cardiac, Gallbladder Respiratory: Yes COPD Currently Using CPAP: No Currently Using BIPAP: No Cardiac: Yes (heart surgery at 16mo for hole in heart; [place] 4 months ago, Systolic CHF) Atrial Fibrillation, Cardiomyopathy, Heart Attack, Irregular Heartbeat Neurological: No Genitourinary: No Gastrointestinal: Yes (Gastritis, Duodenitis, frequent alcohol intake, Hep C) Hepatitis Musculoskeletal: Yes Fractures Endocrine: Yes (Refuses to monitor blood sugar and to use insulin) Diabetes, Insulin dep HEENT: No Cancer: No Psychosocial: Yes (polysubstance abuse ) Anxiety Integumentary: Yes (Hidradenitis Suppurative, frequent abscesses, necrotizing fasciitis) Blood Disorders: Yes (Hep C+) Adverse Reaction/Blood Tranf: No Family Medical History No Pertinent Family Hx Physical Exam Vital Signs Vital Signs - First Documented 09/10/21 12:24 Temp 36.8 Pulse 53 Resp 19 B/P (MAP) 156/85 (108) O2 Delivery Room Air Capillary Refill : Height/Weight/BMI Height: '" Weight: 192lbs. 4.0oz. [id number]; 22.00 BMI Method: General Appearance: mild distress, other (dishelved ) Respiratory: lungs clear, normal breath sounds Gastrointestinal: soft, tenderness (epigastric through periumbilical ) Extremities: non-tender, normal inspection Neurologic/Psychiatric: alert, normal mood/affect, oriented x 3 Skin: normal color, warm/dry Procedures/Interventions Date of ETT Placement: Jul 23, 2019 Time of ETT Placement: 545 Progress/Results/Core Measures Results/Orders Lab Results Laboratory Tests Test 09/10/21 12:40 Range/Units White Blood Count 19.6 H 4.3-11.0 10^3/uL Red Blood Count 4.97 4.30-5.52 10^6/uL Hemoglobin 15.6 13.3-17.7 g/dL Hematocrit 45 40-54 % Mean Corpuscular Volume 90 80-99 fL Mean Corpuscular Hemoglobin 31 25-34 pg Mean Corpuscular Hemoglobin Concent 35 32-36 g/dL Red Cell Distribution Width 12.4 10.0-14.5 % Platelet Count 316 130-400 10^3/uL Mean Platelet Volume 9.8 9.0-12.2 fL Immature Granulocyte % (Auto) 0 % Neutrophils (%) (Auto) 82 H 42-75 % Lymphocytes (%) (Auto) 11 L 12-44 % Monocytes (%) (Auto) 6 0-12 % Eosinophils (%) (Auto) 0 0-10 % Basophils (%) (Auto) 0 0-10 % Neutrophils # (Auto) 16.2 H 1.8-7.8 X 10^3 Lymphocytes # (Auto) 2.2 1.0-4.0 X 10^3 Monocytes # (Auto) 1.1 H 0.0-1.0 X 10^3 Eosinophils # (Auto) 0.1 0.0-0.3 10^3/uL Basophils # (Auto) 0.1 0.0-0.1 10^3/uL Immature Granulocyte # (Auto) 0.1 0.0-0.1 10^3/uL Neutrophils % (Manual) 79 % Lymphocytes % (Manual) 14 % Monocytes % (Manual) 6 % Basophils % (Manual) 1 % Platelet Estimate NORMAL Blood Morphology Comment NORMAL Sodium Level 135 135-145 MMOL/L Potassium Level 4.0 3.6-5.0 MMOL/L Chloride Level 99 98-107 MMOL/L Carbon Dioxide Level 27 21-32 MMOL/L Anion Gap 9 5-14 MMOL/L Blood Urea Nitrogen 12 7-18 MG/DL Creatinine 0.73 0.60-1.30 MG/DL Estimat Glomerular Filtration Rate 113 BUN/Creatinine Ratio 16 Glucose Level 282 H 70-105 MG/DL Calcium Level 9.5 8.5-10.1 MG/DL Corrected Calcium 9.2 8.5-10.1 MG/DL Total Bilirubin 0.5 0.1-1.0 MG/DL Aspartate Amino Transf (AST/SGOT) 25 5-34 U/L Alanine Aminotransferase (ALT/SGPT) 22 0-55 U/L Alkaline Phosphatase 99 40-136 U/L Total Protein 7.3 6.4-8.2 GM/DL Albumin 4.4 3.2-4.5 GM/DL Lipase 63 8-78 U/L Serum Alcohol < 10 <10 MG/DL My Orders Orders - TREMAYNE ADAM L DO Alcohol (09/10/21 12:34) Cbc With Automated Diff (09/10/21 12:34) Comprehensive Metabolic Panel (09/10/21 12:34) Lipase (09/10/21 12:34) Abdomen Flat & Upright/Decub (09/10/21 12:34) Ns Iv 1000 Ml (Sodium Chloride 0.9%) (09/10/21 12:34) Famotidine Injection (Pepcid Injection) (09/10/21 12:34) Haloperidol Injection (Haldol Injectio (09/10/21 12:45) Diphenhydramine Injection (Benadryl Inje (09/10/21 12:34) Manual Differential (09/10/21 12:40) Fentanyl Inj (Sublimaze Injection) (09/10/21 13:51) Medications Given in ED Current Medications Medications Dose Ordered Sig/Scarlett Route Start Time Stop Time Status Last Admin Dose Admin Haloperidol Lactate 2.5 mg ONCE ONCE IV 09/10/21 12:45 09/10/21 12:46 DC 09/10/21 12:44 2.5 MG Vital Signs/I&O 09/10/21 12:24 Temp 36.8 Pulse 53 Resp 19 B/P (MAP) 156/85 (108) O2 Delivery Room Air Progress Progress Note : Progress Note Patient has an increased white count since 09/08/2021 with some prominent small bowel loops consistent with may be an ileus versus early small bowel or partial small bowel. I do suspect that patient symptoms are majority of cannabis h yperemesis syndrome however with the development some prominent small bowel loops we will admit him for observation. I discussed with both Dr. Man and Dr. Farmer. Dr. Farmer reports that she will be doing admission orders. Patient was transferred [facility] in stable condition Diagnostic Imaging Diagonstic Imaging: Xray Plain Films/CT/US/NM/MRI: chest Comments Date of Exam:09/10/21 ABDOMEN FLAT & UPRIGHT/DECUB HISTORY: Abdominal pain. TECHNIQUE: Supine and upright frontal views of the abdomen. COMPARISON: 09/08/2021. FINDINGS: There are borderline prominent loops of small bowel in the midabdomen. There is hyperdense material, possibly contrast in the colon. No large collection of free air is seen. Cholecystectomy clips are noted. IMPRESSION: 1. Borderline prominent loops of small bowel in the midabdomen. This may represent an ileus or possibly low-grade obstruction. Reviewed: Reviewed by Me, Reviewed/Discussed Departure Communication (Admissions) Time/Spoke to Admitting Phy: 14:00 Will accept admission, she will write orders. Time/Spoke to Consulting Phy: 13:45 Impression Primary Impression: Elevated white blood cell count, unspecified Qualified Codes: D72.829 - Elevated white blood cell count, unspecified Additional Impression: Ileus, unspecified Disposition: 30 STILL A PATIENT Condition: Stable Admissions Decision to Admit Reason: Admit from ER (General) Decision to Admit/Date: Sep 10, 2021 Time/Decision to Admit Time: 14:00 Departure-Patient Inst. Referrals: ZULMA HERRERA APRN (PCP/Family) Primary Care Physician TREMAYNE ADAM DO Sep 10, 2021 12:32
[2021-09-10] MEDS ORDERED: FAMOTIDINE 20MG/2ML IV (PEPCID) IV STA (12:34)
[2021-09-10] MEDS ORDERED: NS IV 1000 ML 1,000 ML IV STA (12:34)
[2021-09-10] MEDS ORDERED: diphenhydrAMINE 50 MG/ML INJ (BENADRYL) IV STA (12:34)
[2021-09-10] MEDS ORDERED: HALOPERIDOL 5 MG/ML (HALDOL) VIAL IV ONE (12:45)
--- NOTE | 2021-09-10 13:07 | Diagnostic Imaging Report ---
HISTORY: Abdominal pain. TECHNIQUE: Supine and upright frontal views of the abdomen. COMPARISON: 09/08/2021. FINDINGS: There are borderline prominent loops of small bowel in the midabdomen. There is hyperdense material, possibly contrast in the colon. No large collection of free air is seen. Cholecystectomy clips are noted. IMPRESSION: 1. Borderline prominent loops of small bowel in the midabdomen. This may represent an ileus or possibly low-grade obstruction. Dictated by: Dictated on workstation # [id number]
[2021-09-10 13:15] LABS: HEMATOCRIT 45 % (40-54); HEMOGLOBIN 15.6 g/dL (13.3-17.7); MEAN CORPUSCULAR HEMOGLOBIN 31 pg (25-34); MEAN CORPUSCULAR VOLUME 90 fL (80-99); WHITE BLOOD COUNT 19.6 10^3/uL (4.3-11.0)
[2021-09-10 13:16] LABS: BASOPHILS # (AUTO) 0.1 10^3/uL (0.0-0.1); BASOPHILS % (AUTO) 0 % (0-10); EOSINOPHILS # (AUTO) 0.1 10^3/uL (0.0-0.3); EOSINOPHILS % (AUTO) 0 % (0-10); LYMPHOCYTES # (AUTO) 2.2 X 10^3 (1.0-4.0); LYMPHOCYTES % (AUTO) 11 % (12-44); MEAN CORPUSCULAR HGB CONC 35 g/dL (32-36); MEAN PLATELET VOLUME 9.8 fL (9.0-12.2); MONOCYTES # (AUTO) 1.1 X 10^3 (0.0-1.0); MONOCYTES % (AUTO) 6 % (0-12); NEUTROPHILS # (AUTO) 16.2 X 10^3 (1.8-7.8); NEUTROPHILS % (AUTO) 82 % (42-75); PLATELET COUNT 316 10^3/uL (130-400)
[2021-09-10 13:28] LABS: BUN/CREATININE RATIO 16; CARBON DIOXIDE 27 MMOL/L (21-32); CHLORIDE 99 MMOL/L (98-107); CREATININE SERUM 0.73 MG/DL (0.60-1.30); GFR ESTIMATED 113; GLUCOSE 282 MG/DL (70-105); SODIUM 135 MMOL/L (135-145)
[2021-09-10 13:29] LABS: ALANINE AMINOTRANSFERASE 22 U/L (0-55); ALBUMIN 4.4 GM/DL (3.2-4.5); ALKALINE PHOSPHATASE 99 U/L (40-136); BILIRUBIN,TOTAL 0.5 MG/DL (0.1-1.0); CALCIUM 9.5 MG/DL (8.5-10.1); LIPASE 63 U/L (8-78); TOTAL PROTEIN 7.3 GM/DL (6.4-8.2)
[2021-09-10 13:36] LABS: BASOPHILS % (MANUAL) 1 %; LYMPHOCYTES % (MANUAL) 14 %; MONOCYTES % (MANUAL) 6 %; NEUTROPHILS % (MANUAL) 79 %; PLATELET ESTIMATE NORMAL
[2021-09-10 13:37] LABS: RBC MORPH NORMAL
[2021-09-10] MEDS ORDERED: fentaNYL INJ 100 MCG/2 ML AMP IVP STA (13:51)
[2021-09-10] MEDS: NS IV 1000 ML 1,000 ML IV SCH ×2 (15:44→23:52)
[2021-09-10] MEDS: ONDANSETRON 4 MG/2 ML (SDV) Z0FRAN IVP PRN ×2 (15:44→22:43)
[2021-09-10] MEDS: ENOXAPARIN 40 MG/0.4 ML (LOVENOX) SYR SC SCH (15:44)
[2021-09-10] MEDS ORDERED: METOCLOPRAMIDE INJ 10 MG/2 ML (REGLAN) IVP PRN (15:45)
[2021-09-10 16:00] VITALS: BP 131/64
[2021-09-10] MEDS: PROMETHAZINE INJ 25 MG/ML (PHENERGAN) AMP IM PRN (16:04)
[2021-09-10] MEDS ORDERED: INSU100V16 SQ (16:13)
[2021-09-10] MEDS ORDERED: INSU100V5 SQ (16:13)
[2021-09-10] MEDS ORDERED: RT-ALBUTEROL/IPRATROPIUM 3 ML (DUONEB) VIAL INH PRN (16:15)
--- NOTE | 2021-09-10 16:24 | History & Physical-Hospitalist ---
History of Present Illness HPI/Chief Complaint Chief complaint: Small bowel obstruction versus ileus History present illness: This is a 51-year-old white male [facility] who has a past medical history of hyperemesis cannabis who presented to the ER second day in a row with abdominal pain with nausea and vomiting. CT scan was completed the day before showing no acute abnormality. He presented again and x-ray appears to note small bowel obstruction versus ileus. Dr. GODWIN's been consulted. Antiemetics and IV fluids and pain medication and supportive care will be initiated. Source: patient Exam Limitations: no limitations Date Seen 09/10/21 Time Seen by a Provider: 16:00 Attending Physician Izabella Poe Amanda S Aprn Referring Physician Date of Admission Sep 10, 2021 at 15:26 Home Medications & Allergies Home Medications Reviewed patient Home Medication Reconciliation performed by pharmacy medication reconciliations warehouse technician and/or nursing. Patients Allergies have been reviewed. Allergies Allergies Coded Allergies Penicillins (Unverified Adverse Reaction, Unknown, 07/22/19) Past Kwyurpa-Ckfgio-Rjrcku Hx Patient Social History Marrital Status: single Employed/Student: unemployed Tobacco Use?: Yes Tobacco type used: Cigarettes Smoking Status: Current Everyday Smoker Smokeless Tobacco Frequency: Never a User Use of E-Cig and/or Vaping Jewel: Never a User Substance use?: Yes Substance type: Marijuana Substance frequency: Daily Alcohol Use?: No Alcohol Frequency: Rarely Pt feels they are or have been: No Immunizations Up To Date First/Initial COVID19 Vaccinat: 02/2021 Second COVID19 Vaccination [place]: 03/2021 Tetanus Booster (TDap): Unknown Seasonal Allergies Seasonal Allergies: No Current Status Advance Directives: No Communicates: Verbally Primary Language: Citizen Of [place] Preferred Spoken Language: Citizen Of [place] Is interpretation needed?: No Sensory deficits: Vision impairment Implanted or Applied Medical D: None Past Medical History Surgeries: Cardiac, Gallbladder COPD Currently Using CPAP: No Currently Using BIPAP: No Atrial Fibrillation, Cardiomyopathy, Heart Attack, Irregular Heartbeat Hepatitis Fractures Diabetes, Insulin dep Anxiety Blood Disorders: Yes (Hep C+) Adverse Reaction/Blood Tranf: No Family Medical History No Pertinent Family Hx Review of Systems Constitutional: see HPI, malaise, weakness EENTM: no symptoms reported Respiratory: no symptoms reported Cardiovascular: no symptoms reported Gastrointestinal: abdominal pain, loss of appetite, nausea, vomiting Genitourinary: no symptoms reported Musculoskeletal: no symptoms reported Skin: no symptoms reported Psychiatric/Neurological: No Symptoms Reported All Other Systems Reviewed Negative Unless Noted: Yes Physical Exam Physical Exam Vital Signs Vital Signs - First Documented 09/10/21 09/10/21 09/10/21 12:24 14:42 16:00 Temp 36.8 Pulse 53 Resp 19 B/P (MAP) 156/85 (108) Pulse Ox 96 O2 Delivery Room Air FiO2 21 Capillary Refill : Less Than 3 Seconds Height, Weight, BMI Height: '" Weight: 192lbs. 4.0oz. 87.431697ya; 21.24 BMI Method: General Appearance: WD/WN, Anxious, Chronically ill, Mild Distress Eyes: Right Eye Normal Inspection, Right Eye PERRL HEENT: PERRL/EOMI, Normal ENT Inspection, Pharynx Normal, Moist Mucous Membranes Neck: Full Range of Motion, Normal Inspection, Non Tender Respiratory: Chest Non Tender, Lungs Clear, Normal Breath Sounds, No Accessory Muscle Use, No Respiratory Distress Cardiovascular: Regular Rate, Rhythm, No Edema, No Gallop, No JVD, No Murmur, Normal Peripheral Pulses Gastrointestinal: Normal Bowel Sounds, No Organomegaly, No Pulsatile Mass, Abnormal Bowel Sounds, Tenderness Back: Normal Inspection, No CVA Tenderness, No Vertebral Tenderness Extremity: Normal Capillary Refill, Normal Inspection, Normal Range of Motion, Non Tender, No Calf Tenderness, No Pedal Edema Neurologic/Psychiatric: Alert, Oriented x3, No Motor/Sensory Deficits, Normal Mood/Affect Skin: Normal Color, Warm/Dry Lymphatic: No Adenopathy Results Results/Procedures Labs Laboratory Tests 09/10/21 12:40 09/11/21 06:31 Patient resulted labs reviewed. Assessment/Plan Admission Diagnosis Assessment: Abdominal pain Small bowel obstruction versus ileus CAD Hypertension History of hyperemesis cannabis Plan: Bowel rest IV pain medication antiemetics Dr. GODWIN consult Admission Status: Observation IZABELLA POE DO Sep 10, 2021 16:24
[2021-09-10] MEDS ORDERED: INSU100I48 SQ (16:32)
[2021-09-10 16:33] VITALS: BP 145/80
[2021-09-10] MEDS: HYDROmorphone 2 MG/ML VIAL (DILAUDID) IVP PRN ×3 (17:16→23:58)
--- NOTE | 2021-09-10 19:08 | CONSULTATION REPORT ---
DATE OF SERVICE: ATTENDING PRIMARY CARE PHYSICIAN: Kirsten Rooney APRN. HISTORY OF PRESENT ILLNESS: The patient is well known to us. He was initially seen on 01/05/2021, where he presented with a right popliteal pain and swelling and was initially treated with IV antibiotics. He does have an extensive past medical history including smoking two packs of cigarettes daily as well as marijuana daily as well. He also does have a history of IV drug abuse with methamphetamine; however, states that he has not used this in the past five years. Initially upon examination, he was found to have edema as well as fluctuance and this appeared to be a suppurative thrombophlebitis. On 10/22/2020, he underwent exploration and was found to have a significant necrotizing fasciitis and underwent a wide local excision 40 x 15 cm in size and this was followed by wound VAC placement. He was also seen by wound care and there was some new necrotic tissue and on 12/29/2020, he underwent further debridement. Over time with wound care, his wound did appear well with good granulation tissue and on 01/05/2021, he underwent split-thickness skin graft. On subsequent visits to the office, the wound continued to heal well. He presented to [facility] with mild crampy abdominal pain as well as distention. He presented with similar symptoms two days ago and a CT scan was performed, which did not show any signs of obstruction. An abdominal x-ray was performed today, which did show some mildly dilated loops of small bowel, however, he does have a significant amount of stool in the colon, most likely representing an ileus. PAST MEDICAL HISTORY: Congenital heart defect, COPD, gastroesophageal reflux disease, history of myocardial infarction, atrial fibrillation, hepatitis C, diabetes, anxiety, and history of lower extremity necrotizing fasciitis. PAST SURGICAL HISTORY: Open heart surgery at 12 weeks of age, hiatal hernia repair with Cassie fundoplication, wide debridement, right lower extremity followed by a split-thickness skin graft. ALLERGIES: PENICILLIN. MEDICATIONS: Hydrocodone p.r.n., detemir insulin 14 units b.i.d., lispro insulin 5 units before every meals and at bedtime, and oxycodone 10.5/325 q.6 hours p.r.n. SOCIAL HISTORY: Positive smoke 60 pack years, positive for marijuana smoke as well as previous history of methamphetamine use. FAMILY HISTORY: Noncontributory. REVIEW OF SYSTEMS: This is a slightly thin appearing male, disheveled in appearance; however, this is his baseline when seen last. Again, he does not take good care of himself and has a longstanding history of medical noncompliance. He does not report any shortness of breath or difficulty breathing. No chest pain, palpitations, and diaphoresis. He states that he has had some crampy abdominal pain as well as some nausea; however, no vomiting. He does report a history of constipation. He is unsure when his last bowel movement was. He does not report any red blood per rectum nor any dark tarry stools. No fever, chills, no recent inadvertent weight loss. All other review of systems negative. PHYSICAL EXAMINATION: VITAL SIGNS: Temperature 36.6, blood pressure 145/80, pulse 76, respirations 16, and pulse ox 99% on room air. CHEST: Scattered wheezes bilaterally. HEART: Regular, no murmurs. EXTREMITIES: No lower extremity edema and negative Homans sign. No signs of infection. HEENT: No scleral icterus. NECK: No cervical lymphadenopathy. ABDOMEN: Soft with mild distention. There is mild crampy abdominal pain upon palpation. There are no peritoneal signs. No hernias. SKIN: Warm and dry. LABORATORY DATA: WBC 19.6, hemoglobin 15.6, and hematocrit 45. BUN 12 and creatinine 0.73. ASSESSMENT AND PLAN: A 51-year-old male with ileus, most likely secondary to chronic opioid use and resultant ileus. We will proceed with MiraLax and a clear liquid diet as well as serial abdominal x-rays. Job ID: [id number] DocumentID: [id number] Dictated Date: 09/10/2021 18:39:56 Gum Rolling Machine Operator Date: 09/10/2021 19:07:59 Dictated By: SONJA GODWIN MD
[2021-09-10 19:28] VITALS: BP 144/88
[2021-09-10] MEDS: polyethylene glycoL POWDER 17 GM (MIRALAX) PACK PO SCH (20:32)
[2021-09-10] MEDS: RT-ALBUTEROL/IPRATROPIUM 3 ML (DUONEB) VIAL INH SCH (21:34)
[2021-09-10] MEDS: inSUlin ASPART (NovoLOG) 1 UNIT/0.01 ML (CHARGE PER UNIT) SC SCH (22:44)
[2021-09-11 00:12] VITALS: BP 121/79
[2021-09-11] MEDS: RT-ALBUTEROL/IPRATROPIUM 3 ML (DUONEB) VIAL INH SCH ×4 (02:43→22:32)
[2021-09-11] MEDS: HYDROmorphone 2 MG/ML VIAL (DILAUDID) IVP PRN ×7 (03:03→21:34)
[2021-09-11 04:16] VITALS: BP 137/73
[2021-09-11] MEDS: inSUlin ASPART (NovoLOG) 1 UNIT/0.01 ML (CHARGE PER UNIT) SC SCH ×4 (06:19→21:34)
[2021-09-11 06:42] LABS: BASOPHILS # (AUTO) 0.1 10^3/uL (0.0-0.1); BASOPHILS % (AUTO) 1 % (0-10); EOSINOPHILS # (AUTO) 0.2 10^3/uL (0.0-0.3); EOSINOPHILS % (AUTO) 2 % (0-10); HEMATOCRIT 38 % (40-54); HEMOGLOBIN 13.1 g/dL (13.3-17.7); LYMPHOCYTES # (AUTO) 3.5 10^3/uL (1.0-4.0); LYMPHOCYTES % (AUTO) 41 % (12-44); MEAN CORPUSCULAR HEMOGLOBIN 31 pg (25-34); MEAN CORPUSCULAR HGB CONC 34 g/dL (32-36); MEAN CORPUSCULAR VOLUME 92 fL (80-99); MEAN PLATELET VOLUME 9.9 fL (9.0-12.2); MONOCYTES # (AUTO) 0.7 10^3/uL (0.0-1.0); MONOCYTES % (AUTO) 8 % (0-12); NEUTROPHILS # (AUTO) 4.2 10^3/uL (1.8-7.8); NEUTROPHILS % (AUTO) 49 % (42-75); PLATELET COUNT 220 10^3/uL (130-400); WHITE BLOOD COUNT 8.6 10^3/uL (4.3-11.0)
[2021-09-11 06:59] LABS: ALBUMIN 3.1 GM/DL (3.2-4.5); BILIRUBIN,TOTAL 0.6 MG/DL (0.1-1.0); CALCIUM 8.1 MG/DL (8.5-10.1); CREATININE SERUM 0.7 MG/DL (0.60-1.30); POTASSIUM 3.5 MMOL/L (3.6-5.0); TOTAL PROTEIN 5.5 GM/DL (6.4-8.2)
--- NOTE | 2021-09-11 07:22 | Diagnostic Imaging Report ---
Indication: Ileus Abdominal films obtained at 0701 a.m. and compared with 09/10/2021. There is prominent stool throughout the colon. There is no overt obstruction or ileus. There are surgical clips in the right upper quadrant. There are no suspicious calcifications. Upright view shows no evidence of free air. IMPRESSION: Prominent stool throughout the colon with no overt obstruction or ileus. Dictated by: Dictated on workstation # [id number]
[2021-09-11 07:45] VITALS: BP 164/86
[2021-09-11] MEDS: polyethylene glycoL POWDER 17 GM (MIRALAX) PACK PO SCH ×2 (08:27→19:38)
[2021-09-11] MEDS: NS IV 1000 ML 1,000 ML IV SCH ×2 (08:27→19:26)
[2021-09-11] MEDS: PANTOPRAZOLE 40 MG (PROTONIX) VIAL IV SCH (08:27)
--- NOTE | 2021-09-11 10:46 | Progress Note ---
Subjective Date Seen by a Provider: Sep 11, 2021 Time Seen by a Provider: 09:40 Subjective/Events-last exam Patient seen with Dr. Man. Patient reports doing some better. Passing gas, but no BM yet. Still having abdominal pain. Denies any N/V. Does report he is hungry. Objective Exam Vital Signs Date Time Temp Pulse Resp B/P (MAP) Pulse Ox O2 Delivery O2 Flow Rate FiO2 09/11/21 08:00 97 Room Air 09/11/21 07:45 36.7 67 16 164/86 (112) 97 Room Air 09/11/21 04:16 36.4 70 14 137/73 (94) 96 Room Air 09/11/21 02:43 98 Room Air 09/11/21 00:12 36.9 87 13 121/79 (93) 95 Room Air 09/10/21 21:34 97 Room Air 09/10/21 20:10 96 Room Air 09/10/21 19:28 36.6 68 16 144/88 (106) 95 Room Air 09/10/21 16:33 36.6 76 16 145/80 (101) 99 Room Air 09/10/21 16:00 36.8 61 96 21 09/10/21 15:54 96 Room Air 09/10/21 14:42 61 17 131/64 96 Room Air 09/10/21 12:24 36.8 53 19 156/85 (108) Room Air I & O 09/11/21 07:00 Intake Total 2480 ml Output Total 100 ml Balance 2380 ml Capillary Refill : Less Than 3 Seconds General Appearance: No Apparent Distress, WD/WN Neck: Normal Inspection, Supple Respiratory: No Accessory Muscle Use, No Respiratory Distress Cardiovascular: Regular Rate, Rhythm, No Edema Gastrointestinal: normal bowel sounds, soft, distended (mild), tenderness Extremity: Normal Inspection, Normal Range of Motion Neurologic/Psychiatric: Alert, Oriented x3 Skin: Normal Color, Warm/Dry Results Lab Laboratory Tests 09/10/21 12:40: White Blood Count 19.6H, Red Blood Count 4.97, Hemoglobin 15.6, Hematocrit 45, Mean Corpuscular Volume 90, Mean Corpuscular Hemoglobin 31, Mean Corpuscular Hemoglobin Concent 35, Red Cell Distribution Width 12.4, Platelet Count 316, Mean Platelet Volume 9.8, Immature Granulocyte % (Auto) 0, Neutrophils (%) (Auto) 82H, Lymphocytes (%) (Auto) 11L, Monocytes (%) (Auto) 6, Eosinophils (%) (Auto) 0, Basophils (%) (Auto) 0, Neutrophils # (Auto) 16.2H, Lymphocytes # (Auto) 2.2, Monocytes # (Auto) 1.1H, Eosinophils # (Auto) 0.1, Basophils # (Auto) 0.1, Immature Granulocyte # (Auto) 0.1, Neutrophils % (Manual) 79, Lymphocytes % (Manual) 14, Monocytes % (Manual) 6, Basophils % (Manual) 1, Platelet Estimate NORMAL, Blood Morphology Comment NORMAL, Sodium Level 135, Potassium Level 4.0, Chloride Level 99, Carbon Dioxide Level 27, Anion Gap 9, Blood Urea Nitrogen 12, Creatinine 0.73, Estimat Glomerular Filtration Rate 113, BUN/Creatinine Ratio 16, Glucose Level 282H, Calcium Level 9.5, Corrected Calcium 9.2, Total Bilirubin 0.5, Aspartate Amino Transf (AST/SGOT) 25, Alanine Aminotransferase (ALT/SGPT) 22, Alkaline Phosphatase 99, Total Protein 7.3, Albumin 4.4, Lipase 63, Serum Alcohol < 10 09/10/21 22:22: Glucometer 192H 09/11/21 06:11: Glucometer 163H 09/11/21 06:31: White Blood Count 8.6, Red Blood Count 4.18L, Hemoglobin 13.1L, Hematocrit 38L, Mean Corpuscular Volume 92, Mean Corpuscular Hemoglobin 31, Mean Corpuscular Hemoglobin Concent 34, Red Cell Distribution Width 12.0, Platelet Count 220, Mean Platelet Volume 9.9, Immature Granulocyte % (Auto) 0, Neutrophils (%) (Auto) 49, Lymphocytes (%) (Auto) 41, Monocytes (%) (Auto) 8, Eosinophils (%) (Auto) 2, Basophils (%) (Auto) 1, Neutrophils # (Auto) 4.2, Lymphocytes # (Auto) 3.5, Monocytes # (Auto) 0.7, Eosinophils # (Auto) 0.2, Basophils # (Auto) 0.1, Immature Granulocyte # (Auto) 0.0, Sodium Level 134L, Potassium Level 3.5L, Chloride Level 103, Carbon Dioxide Level 23, Anion Gap 8, Blood Urea Nitrogen 7, Creatinine 0.70, Estimat Glomerular Filtration Rate 119, BUN/Creatinine Ratio 10, Glucose Level 154H, Calcium Level 8.1L, Corrected Calcium 8.8, Total Bilirubin 0.6, Aspartate Amino Transf (AST/SGOT) 26, Alanine Aminotransferase (ALT/SGPT) 19, Alkaline Phosphatase 63, Total Protein 5.5L, Albumin 3.1L Assessment/Plan Assessment/Plan Assess & Plan/Chief Complaint A 51-year-old male with ileus, Constipation VSS WBC 8.6 Pt is passing flatus - Will advance diet Continue miralax for constipation ARLEEN EVERETT BOOM PUMP OPERATOR Sep 11, 2021 10:46
[2021-09-11] MEDS: ONDANSETRON 4 MG/2 ML (SDV) Z0FRAN IVP PRN ×3 (11:33→19:29)
[2021-09-11 12:00] VITALS: BP 144/86
--- NOTE | 2021-09-11 12:06 | Progress Note - Hospitalist ---
Subjective HPI/CC On Admission Date Seen by Provider: Sep 11, 2021 Time Seen by Provider: 12:05 Chief complaint: Small bowel obstruction versus ileus History present illness: This is a 51-year-old white male [facility] who has a past medical history of hyperemesis cannabis who presented to the ER second day in a row with abdominal pain with nausea and vomiting. CT scan was completed the day before showing no acute abnormality. He presented again and x-ray appears to note small bowel obstruction versus ileus. Dr. GODWIN's been consulted. Antiemetics and IV fluids and pain medication and supportive care enoch l be initiated. Subjective/Events-last exam Patient still having pain out of proportion to clinical status Moans a lot Labs stable Review of Systems Gastrointestinal: Abdominal Pain Objective Exam Vital Signs Vital Signs Date Time Temp Pulse Resp B/P (MAP) Pulse Ox O2 Delivery O2 Flow Rate FiO2 09/12/21 00:36 36.6 82 20 154/86 (108) 98 Room Air 09/10/21 16:00 21 Capillary Refill : Less Than 3 Seconds General Appearance: WD/WN, Chronically ill, Mild Distress Respiratory: Lungs Clear, Normal Breath Sounds Cardiovascular: Regular Rate, Rhythm Gastrointestinal: Normal Bowel Sounds Results/Procedures Lab Laboratory Tests 09/11/21 06:31 Patient resulted labs reviewed. Assessment/Plan Assessment and Plan Assess & Plan/Chief Complaint Assessment: Abdominal pain Small bowel obstruction versus ileus CAD Hypertension History of hyperemesis cannabis Plan: Bowel rest IV pain medication antiemetics Dr. GODWIN consult Plan: Supportive care Ambulate FARMERANNALISECynthia BARAJAS Sep 11, 2021 12:06
[2021-09-11 15:30] VITALS: BP 124/71
[2021-09-11] MEDS: ENOXAPARIN 40 MG/0.4 ML (LOVENOX) SYR SC SCH (16:25)
[2021-09-11 19:45] VITALS: BP 138/77
[2021-09-11] MEDS: ACETAMINOPHEN 500 MG TAB (TYLENOL) PO PRN (21:54)
[2021-09-11] MEDS: PROMETHAZINE INJ 25 MG/ML (PHENERGAN) AMP IM PRN (21:55)
[2021-09-12 00:36] VITALS: BP 154/86
[2021-09-12] MEDS: HYDROmorphone 2 MG/ML VIAL (DILAUDID) IVP PRN ×7 (00:49→22:20)
[2021-09-12] MEDS: NS IV 1000 ML 1,000 ML IV SCH ×2 (04:57→11:16)
[2021-09-12] MEDS: inSUlin ASPART (NovoLOG) 1 UNIT/0.01 ML (CHARGE PER UNIT) SC SCH ×4 (05:34→21:05)
[2021-09-12] MEDS: ONDANSETRON 4 MG/2 ML (SDV) Z0FRAN IVP PRN ×2 (06:23→11:16)
[2021-09-12 06:31] LABS: BASOPHILS % (AUTO) 0 % (0-10); EOSINOPHILS # (AUTO) 0.2 10^3/uL (0.0-0.3); EOSINOPHILS % (AUTO) 2 % (0-10); HEMATOCRIT 41 % (40-54); HEMOGLOBIN 13.7 g/dL (13.3-17.7); LYMPHOCYTES # (AUTO) 2.9 10^3/uL (1.0-4.0); LYMPHOCYTES % (AUTO) 37 % (12-44); MEAN CORPUSCULAR HEMOGLOBIN 31 pg (25-34); MEAN CORPUSCULAR HGB CONC 34 g/dL (32-36); MEAN CORPUSCULAR VOLUME 92 fL (80-99); MEAN PLATELET VOLUME 10.3 fL (9.0-12.2); MONOCYTES # (AUTO) 0.8 10^3/uL (0.0-1.0); MONOCYTES % (AUTO) 10 % (0-12); NEUTROPHILS # (AUTO) 3.8 10^3/uL (1.8-7.8); NEUTROPHILS % (AUTO) 50 % (42-75); PLATELET COUNT 242 10^3/uL (130-400); WHITE BLOOD COUNT 7.7 10^3/uL (4.3-11.0)
[2021-09-12 06:53] LABS: ALBUMIN 3.5 GM/DL (3.2-4.5); BILIRUBIN,TOTAL 0.8 MG/DL (0.1-1.0); CALCIUM 8.7 MG/DL (8.5-10.1); CREATININE SERUM 0.79 MG/DL (0.60-1.30); POTASSIUM 3.7 MMOL/L (3.6-5.0); TOTAL PROTEIN 6.3 GM/DL (6.4-8.2)
[2021-09-12 07:21] VITALS: BP 154/87
[2021-09-12] MEDS: polyethylene glycoL POWDER 17 GM (MIRALAX) PACK PO SCH ×2 (08:23→19:51)
[2021-09-12] MEDS: PANTOPRAZOLE 40 MG (PROTONIX) VIAL IV SCH (08:23)
[2021-09-12] MEDS: ACETAMINOPHEN 500 MG TAB (TYLENOL) PO PRN (08:23)
[2021-09-12] MEDS: RT-ALBUTEROL/IPRATROPIUM 3 ML (DUONEB) VIAL INH SCH ×3 (09:36→22:34)
--- NOTE | 2021-09-12 10:56 | Progress Note - Hospitalist ---
Subjective HPI/CC On Admission Date Seen by Provider: Sep 12, 2021 Time Seen by Provider: 10:30 Chief complaint: Small bowel obstruction versus ileus History present illness: This is a 51-year-old white male [facility], [facility] who has a past medical history of hyperemesis cannabis who presented to the ER second day in a row with abdominal pain with nausea and vomiting. CT scan was completed the day before showing no acute abnormality. He presented again and x-ray appears to note small bowel obstruction versus ileus. Dr. GODWIN's been consulted. Antiemetics and IV fluids and pain medication and supportive care enoch l be initiated. Subjective/Events-last exam Patient doing a lot better Walking in the halls Reports abdominal pain but not consistent with clinical situation Threatens to leave AMA Review of Systems Gastrointestinal: Abdominal Pain Objective Exam Vital Signs Vital Signs Date Time Temp Pulse Resp B/P (MAP) Pulse Ox O2 Delivery O2 Flow Rate FiO2 09/12/21 15:30 98 Room Air 09/12/21 07:21 36.9 70 20 154/87 (109) 09/10/21 16:00 21 Capillary Refill : Less Than 3 Seconds General Appearance: No Apparent Distress, WD/WN, Chronically ill Respiratory: Lungs Clear Cardiovascular: Regular Rate, Rhythm Neurologic/Psychiatric: Alert, Oriented x3, No Motor/Sensory Deficits, Normal Mood/Affect Results/Procedures Lab Laboratory Tests 09/12/21 05:51 Patient resulted labs reviewed. Assessment/Plan Assessment and Plan Assess & Plan/Chief Complaint Assessment: Abdominal pain Small bowel obstruction versus ileus CAD Hypertension History of hyperemesis cannabis Plan: Bowel rest IV pain medication antiemetics Dr. GODWNI consult Plan: Supportive care Ambulate 09/12/2021: Supportive care Ambulate LORNA FARMER DO Sep 12, 2021 10:56
[2021-09-12 16:00] VITALS: BP 153/87
[2021-09-12] MEDS: ENOXAPARIN 40 MG/0.4 ML (LOVENOX) SYR SC SCH (16:52)
[2021-09-13 00:51] VITALS: BP 113/65
[2021-09-13] MEDS: RT-ALBUTEROL/IPRATROPIUM 3 ML (DUONEB) VIAL INH SCH ×2 (02:24→10:24)
[2021-09-13] MEDS: NS IV 1000 ML 1,000 ML IV SCH (04:08)
[2021-09-13] MEDS: inSUlin ASPART (NovoLOG) 1 UNIT/0.01 ML (CHARGE PER UNIT) SC SCH (06:45)
[2021-09-13 06:48] LABS: BASOPHILS % (AUTO) 1 % (0-10); EOSINOPHILS # (AUTO) 0.2 10^3/uL (0.0-0.3); EOSINOPHILS % (AUTO) 3 % (0-10); HEMATOCRIT 41 % (40-54); HEMOGLOBIN 14.6 g/dL (13.3-17.7); LYMPHOCYTES # (AUTO) 2.3 10^3/uL (1.0-4.0); LYMPHOCYTES % (AUTO) 32 % (12-44); MEAN CORPUSCULAR HEMOGLOBIN 32 pg (25-34); MEAN CORPUSCULAR HGB CONC 35 g/dL (32-36); MEAN CORPUSCULAR VOLUME 90 fL (80-99); MEAN PLATELET VOLUME 9.7 fL (9.0-12.2); MONOCYTES # (AUTO) 0.6 10^3/uL (0.0-1.0); MONOCYTES % (AUTO) 9 % (0-12); NEUTROPHILS # (AUTO) 4.1 10^3/uL (1.8-7.8); NEUTROPHILS % (AUTO) 57 % (42-75); PLATELET COUNT 238 10^3/uL (130-400); WHITE BLOOD COUNT 7.2 10^3/uL (4.3-11.0)
[2021-09-13 07:08] LABS: ALBUMIN 3.8 GM/DL (3.2-4.5)
[2021-09-13 07:10] LABS: TOTAL PROTEIN 6.6 GM/DL (6.4-8.2)
[2021-09-13 07:12] LABS: BILIRUBIN,TOTAL 0.8 MG/DL (0.1-1.0)
[2021-09-13 07:14] LABS: CREATININE SERUM 0.75 MG/DL (0.60-1.30)
[2021-09-13 08:00] VITALS: BP 137/63
[2021-09-13] MEDS: polyethylene glycoL POWDER 17 GM (MIRALAX) PACK PO SCH (09:49)
[2021-09-13] MEDS: HYDROmorphone 2 MG/ML VIAL (DILAUDID) IVP PRN (09:49)
[2021-09-13] MEDS: PANTOPRAZOLE 40 MG (PROTONIX) VIAL IV SCH (09:49)
--- NOTE | 2021-09-13 10:35 | Discharge Summary ---
Diagnosis/Chief Complaint Date of Admission Sep 10, 2021 at 15:26 Date of Discharge Discharge Summary-Simple/Stand Consultations Discharge Physical Examination Allergies: Coded Allergies: Penicillins (Unverified Adverse Reaction, Unknown, 07/22/19) Vitals & I&Os Vital Sign - Last 12Hours Date Time Temp Pulse Resp B/P (MAP) Pulse Ox O2 Delivery O2 Flow Rate FiO2 09/13/21 08:50 97 Room Air 09/13/21 08:00 37.2 79 18 137/63 (87) 09/10/21 16:00 21 Intake and Output 09/13/21 00:00 Intake Total 1312 ml Balance 1312 ml Hospital Course See final discharge diagnosis. Discharge Instructions to patient/family Please see electronic discharge instructions given to patient. Discharge Medications Reviewed and agree with Discharge Medication list on patient's Discharge Instruction sheet ALAINA OLEARY MD Sep 13, 2021 10:35
[2021-09-13] MEDS ORDERED: METO-310 PO (10:37)
--- NOTE | 2021-09-13 10:38 | Discharge Summary ---
Discharge [facility] Reconcile Patient Problems Problems Reviewed?: Yes Discharge Medications New, Converted or Re-Newed RX: Transmitted to Pharmacy New Medications: Metoclopramide HCl (Reglan) 10 Mg Tablet 10 MG PO TID, #90 TAB Continued Medications: Hydrocodone/Acetaminophen (Hydrocodone-Acetamin 5-325 mg) 1 Each Tablet 1 TAB PO Q4H PRN for PAIN-MODERATE (5-7), #10 TAB Insulin Determir (Levemir) 1,000 Units/10 Ml Soln 14 UNITS SQ BID, #1 EA Insulin Lispro (Insulin Lispro Kwikpen U-100) 100 Unit/1 Ml Insuln.pen 5 UNIT SQ ACHS Discontinued Medications: Oxycodone HCl/Acetaminophen (Percocet 7.5-325 mg Tablet) 1 Each Tablet 1 TAB PO Q6H PRN for PAIN-MODERATE (5-7) MDD 4 TABS for 7 Days, #35 TAB 0 Refills Patient Instructions Goal/Follow Up Appt: F.u with PCP at [facility] in 1-2 weeks Patient Instructions: - [place], soft diet - Make sure you continue your stool softener Activity & Diet Discharge Diet: Low Residue Activity as Tolerated: Yes ALAINA OLEARY MD Sep 13, 2021 10:38
== END 2021-09-13 10:40 | disposition left against medical advice (07) ==
LOC: EDUNIT# 12:20 → ER FS 12:21 → 4TH 15:26
PROVIDERS: ADMIT Internal Medicine; ATTEND Family Medicine
DX: K56.609 Unspecified intestinal obstruction, unspecified as to partial versus complete obstruction (principal); K56.7 Ileus, unspecified; J44.9 Chronic obstructive pulmonary disease, unspecified; I42.9 Cardiomyopathy, unspecified; I25.2 Old myocardial infarction; E11.9 Type 2 diabetes mellitus without complications; I25.10 Atherosclerotic heart disease of native coronary artery without angina pectoris; I48.91 Unspecified atrial fibrillation; D72.829 Elevated white blood cell count, unspecified; I10 Essential (primary) hypertension; F17.210 Nicotine dependence, cigarettes, uncomplicated; F41.9 Anxiety disorder, unspecified; Z79.4 Long term (current) use of insulin; Z79.891 Long term (current) use of opiate analgesic; Z79.899 Other long term (current) drug therapy
CPT/HCPCS: 36415; 74019; 80053; 80320; 82947; 83690; 85007; 85025; 85027; 94640; 94760; 96361; 96374; 96375; G0378

== ENCOUNTER 2021-09-20 19:35 | Emergency (ER) | payer MEDICAID ==
[~2021-09-20] VITALS: Ht 190 cm; Wt 84.5 kg
[~2021-09-20 19:35] MED LIST changes: +INSU100I48 SQ; +INSU100V16 SQ; +METO-310 PO
--- NOTE | 2021-09-20 19:56 | ED Abdominal Pain ---
General Stated Complaint: ABD PAIN Source of Information: Patient Exam Limitations: No Limitations History of Present Illness Date Seen by Provider: Sep 20, 2021 Time Seen by Provider: 19:38 Initial Comments 51-year-old male with past medical history of diabetes and cannabis hyperemesis coming in due to lower abdominal pain. He is well-known to our facility and has been here multiple times this month. He said a CT scan and multiple abdominal plain films. He says the pain is the same that he had last week with no changes. No nausea or vomiting as of yet. Did have a small bowel movement and is passing gas today. Left time he smoked marijuana was yesterday. Otherwise is denying any fever, chest pain, shortness of breath, weakness, numbness, dysuria, frequency, or any other concerns. Allergies and Home Medications Allergies Coded Allergies: Penicillins (Unverified Adverse Reaction, Unknown, 07/22/19) Patient Home Medication List Home Medication List Reviewed: Yes Hydrocodone/Acetaminophen (Hydrocodone-Acetamin 5-325 mg) 1 Each Tablet, 1 TAB PO Q4H PRN for PAIN-MODERATE (5-7) Prescribed by: ABEL PECK on 05/31/21 2325 Insulin Determir (Levemir) 1,000 Units/10 Ml Soln, 14 UNITS SQ BID Prescribed by: Whitney Lange on 09/10/21 1613 Insulin Lispro (Insulin Lispro Kwikpen U-100) 100 Unit/1 Ml Insuln.pen, 5 UNIT SQ ACHS, (Reported) Entered as Reported by: Whitney Lange on 09/10/21 1632 Metoclopramide HCl (Reglan) 10 Mg Tablet, 10 MG PO TID Prescribed by: ALAINA OLEARY on 09/13/21 1037 Oxycodone HCl/Acetaminophen (Percocet 7.5-325 mg Tablet) 1 Each Tablet, 1 TAB PO Q6H PRN for PAIN-MODERATE (5-7) Prescribed by: PURVI DAWSON on 01/08/21 1533 Review of Systems Review of Systems Constitutional: No chills EENTM: No Blurred Vision Respiratory: No Symptoms Reported Cardiovascular: No Symptoms Reported Gastrointestinal: Abdominal Pain, Constipated; Denies Diarrhea Genitourinary: No Symptoms Reported Musculoskeletal: no symptoms reported Skin: no symptoms reported Psychiatric/Neurological: No Symptoms Reported Endocrine: No Symptoms Reported Hematologic/Lymphatic: No Symptoms Reported All Other Systems Reviewed Negative Unless Noted: Yes Past Vocrejz-Sdjfga-Ctcbak Hx Patient Social History Substance use?: Yes Substance type: Marijuana Immunizations Up To Date Tetanus Booster (TDap): Unknown First/Initial COVID19 Vaccinat: 02/2021 Second COVID19 Vaccination [place]: 03/2021 Third COVID19 Vaccination Date: 02/2021 Seasonal Allergies Seasonal Allergies: No Past Medical History Surgery/Hospitalization HX: Insulin dependent DM Surgeries: Yes (UGI, ? Heart Surgery per prior hx family, R lower leg lesion removed) Cardiac, Gallbladder Respiratory: Yes COPD Currently Using CPAP: No Currently Using BIPAP: No Cardiac: Yes (heart surgery at 16mo for hole in heart; PR 4 months ago, Systolic CHF) Atrial Fibrillation, Cardiomyopathy, Heart Attack, Irregular Heartbeat Neurological: No Genitourinary: No Gastrointestinal: Yes (Gastritis, Duodenitis, frequent alcohol intake, Hep C) Hepatitis Musculoskeletal: Yes Fractures Endocrine: Yes (Refuses to monitor blood sugar and to use insulin) Diabetes, Insulin dep HEENT: No Cancer: No Psychosocial: Yes (polysubstance abuse ) Anxiety Integumentary: Yes (Hidradenitis Suppurative, frequent abscesses, necrotizing fasciitis) Blood Disorders: Yes (Hep C+) Adverse Reaction/Blood Tranf: No Family Medical History No Pertinent Family Hx Physical Exam Vital Signs Vital Signs - First Documented 09/20/21 19:45 Temp 36.1 Pulse 96 Resp 20 B/P (MAP) 144/89 (107) Pulse Ox 95 O2 Delivery Room Air Capillary Refill : Height/Weight/BMI Height: '" Weight: 192lbs. 4.0oz. 87.026494qb; 21.24 BMI Method: General Appearance: WD/WN, no apparent distress HEENT: PERRL/EOMI, normal ENT inspection, pharynx normal Neck: non-tender, full range of motion, supple, normal inspection Respiratory: chest non-tender, lungs clear, normal breath sounds, no respiratory distress, no accessory muscle use Cardiovascular: regular rate, rhythm, no edema, no murmur Gastrointestinal: normal bowel sounds, soft; No distended, No guarding, No rebound; tenderness (Tender with very minimal light palpation to my hand, but with any deep or hard palpation with the stethoscope the patient is not having any tenderness) Extremities: normal range of motion, non-tender, normal inspection, no pedal edema, no calf tenderness, normal capillary refill Back: normal inspection, no CVA tenderness, no vertebral tenderness Neurologic/Psychiatric: no motor/sensory deficits, alert, normal mood/affect Skin: normal color, warm/dry Lymphatic: no adenopathy Procedures/Interventions Date of ETT Placement: Jul 23, 2019 Time of ETT Placement: 0546 Progress/Results/Core Measures Results/Orders Lab Results Laboratory Tests Test 09/20/21 19:50 09/20/21 21:10 Range/Units White Blood Count 10.5 4.3-11.0 10^3/uL Red Blood Count 4.75 4.30-5.52 10^6/uL Hemoglobin 14.9 13.3-17.7 g/dL Hematocrit 43 40-54 % Mean Corpuscular Volume 91 80-99 fL Mean Corpuscular Hemoglobin 31 25-34 pg Mean Corpuscular Hemoglobin Concent 35 32-36 g/dL Red Cell Distribution Width 12.1 10.0-14.5 % Platelet Count 317 130-400 10^3/uL Mean Platelet Volume 9.7 9.0-12.2 fL Immature Granulocyte % (Auto) 0 % Neutrophils (%) (Auto) 70 42-75 % Lymphocytes (%) (Auto) 18 12-44 % Monocytes (%) (Auto) 10 0-12 % Eosinophils (%) (Auto) 1 0-10 % Basophils (%) (Auto) 0 0-10 % Neutrophils # (Auto) 7.4 1.8-7.8 X 10^3 Lymphocytes # (Auto) 1.9 1.0-4.0 X 10^3 Monocytes # (Auto) 1.0 0.0-1.0 X 10^3 Eosinophils # (Auto) 0.1 0.0-0.3 10^3/uL Basophils # (Auto) 0.0 0.0-0.1 10^3/uL Immature Granulocyte # (Auto) 0.0 0.0-0.1 10^3/uL Sodium Level 135 135-145 MMOL/L Potassium Level 4.4 3.6-5.0 MMOL/L Chloride Level 97 L 98-107 MMOL/L Carbon Dioxide Level 26 21-32 MMOL/L Anion Gap 12 5-14 MMOL/L Blood Urea Nitrogen 18 7-18 MG/DL Creatinine 0.73 0.60-1.30 MG/DL Estimat Glomerular Filtration Rate 113 BUN/Creatinine Ratio 25 Glucose Level 278 H 70-105 MG/DL Calcium Level 9.7 8.5-10.1 MG/DL Corrected Calcium 9.6 8.5-10.1 MG/DL Total Bilirubin 0.5 0.1-1.0 MG/DL Aspartate Amino Transf (AST/SGOT) 31 5-34 U/L Alanine Aminotransferase (ALT/SGPT) 34 0-55 U/L Alkaline Phosphatase 113 40-136 U/L Total Protein 7.4 6.4-8.2 GM/DL Albumin 4.1 3.2-4.5 GM/DL Lipase 57 8-78 U/L Urine Color YELLOW Urine Clarity CLEAR Urine pH 5.5 5-9 Urine Specific [place] >=1.030 1.016-1.022 Urine Protein 2+ H NEGATIVE Urine Glucose (UA) 3+ H NEGATIVE Urine Ketones NEGATIVE NEGATIVE Urine Nitrite NEGATIVE NEGATIVE Urine Bilirubin NEGATIVE NEGATIVE Urine Urobilinogen 0.2 < = 1.0 MG/DL Urine Leukocyte Esterase NEGATIVE NEGATIVE Urine RBC (Auto) 1+ H NEGATIVE Urine RBC 0-2 /HPF Urine WBC RARE /HPF Urine Squamous Epithelial Cells RARE /HPF Urine Crystals NONE /LPF Urine Bacteria NEGATIVE /HPF Urine Casts NONE /LPF Urine Mucus NEGATIVE /LPF Urine Other FEW SPERM H /HPF Urine Culture Indicated NO My Orders Orders - SOUMYA CARRERO MD Comprehensive Metabolic Panel (09/20/21 19:51) Lipase (09/20/21 19:51) Ua Culture If Indicated (09/20/21 19:51) Ed Iv/Invasive Line Start (09/20/21 19:51) Acute Abd Series (09/20/21 19:51) Cbc With Automated Diff (09/20/21 19:51) Droperidol Inj (Ed Only) (Inapsine Inj ( (09/20/21 20:07) Lactated Ringers (Lr 1000 Ml Iv Solution (09/20/21 20:45) Acetaminophen Tablet (Tylenol Tablet) (09/20/21 21:15) Hyoscyamine Sl Tablet (Levsin Sl Tablet) (09/20/21 21:15) Medications Given in ED Current Medications Medications Dose Ordered Sig/Scarlett Route Start Time Stop Time Status Last Admin Dose Admin Acetaminophen 1,000 mg ONCE ONCE PO 09/20/21 21:15 09/20/21 21:16 DC 09/20/21 21:05 1,000 MG Droperidol 5 mg STK-MED ONCE .ROUTE 09/20/21 20:07 09/20/21 20:11 DC 09/20/21 20:10 5 MG Hyoscyamine Sulfate 0.125 mg ONCE ONCE PO 09/20/21 21:15 09/20/21 21:16 DC 09/20/21 21:07 0.125 MG Vital Signs/I&O 09/20/21 19:45 Temp 36.1 Pulse 96 Resp 20 B/P (MAP) 144/89 (107) Pulse Ox 95 O2 Delivery Room Air Progress Progress Note : Progress Note 51-year-old male with past medical history of cyclical vomiting coming in due to vomiting in the similar chronic abdominal pain that he has. ABCs were intact and vitals were stable on presentation. Abdomen is soft on exam and no pain with palpation when I push with my stethoscope which is reassuring. Nonspecific bowel gas pattern on plain films. He said multiple CT scans recently and based on his exam I do not believe it would be helpful to get another one today. Basic labs reassuring other than an elevated glucose. Urinalysis without evidence of infection. LFTs and lipase normal. He was given IV droperidol with near complete resolution of his symptoms. He is tolerating p.o. Did receive 1 L of IVF while in the ER. I believe he is stable for discharge with outpatient follow-up. I have recommended that he stop marijuana use as I believe this is likely the cause of his symptoms. He is agreeable to try. He was then discharged home in stable condition with strict return precautions Diagnostic Imaging Diagonstic Imaging: Xray Plain Films/CT/US/NM/MRI: abdomen Comments [facility] [place], [place] NAME: TEJASLEONOR K [facility] REC#: [id number] PT STATUS: REG ER : 1970 PHYSICIAN: SOUMYA CARRERO MD ADMIT DATE: 09/20/21/ER FS Draft Date of Exam:09/20/21 ACUTE ABD SERIES EXAM: ACUTE ABD SERIES INDICATION: Generalized abdominal pain. COMPARISON: 09/11/2021. FINDINGS: Normal heart size and central pulmonary vascularity. Sternotomy. No focal pulmonary opacity. No pleural effusion or pneumothorax. No free intraperitoneal air. There are a few prominent gaseously distended loops of small bowel in the mid abdomen without marshal dilation. No large stool burden. Surgical clips in the upper abdomen. No acute osseous findings. IMPRESSION: 1. Nonspecific bowel gas pattern including a few gaseously distended loops of small bowel in the mid abdomen without marshal dilation. 2. No acute cardiopulmonary findings. Dictated on workstation # [id number] Dict: 09/20/212012 Trans: 09/20/212025 [facility] [id number] Interpreted by: KATARZYNA GREEN MD Electronically signed by: Departure Impression Primary Impression: Cyclical vomiting Disposition: 01 HOME, SELF-CARE Condition: Improved Departure-Patient Inst. Decision time for Depature: 21:41 Referrals: ZULMA HERRERA APRN (PCP/Family) Primary Care Physician Patient Instructions: Cannabis Hyperemesis Syndrome Add. Discharge Instructions: I believe you have cannabis hyperemesis syndrome which is something that happens when you smoke marijuana and it causes abdominal pain and vomiting. The only thing that fixes it is stopping your smoking of marijuana, and this can take several weeks of clean out from your system. Take nausea medicines that you have at home in the meantime and take small sips of fluid to keep fluid down. Scripts Capsaicin (Capsaicin) 42.5 Gm Cream..g. 42.5 GM TP Q12H PRN for PAIN-SEVERE (8-10) for 7 Days, #1 UNIT Please put a very small less than dime size amount to the center of your abdomen as needed for abdominal pain and vomiting Prov: SOUMYA CARRERO MD 09/20/21 SOUMYA CARRERO MD Sep 20, 2021 19:56
[2021-09-20 20:02] LABS: BASOPHILS % (AUTO) 0 % (0-10); EOSINOPHILS % (AUTO) 1 % (0-10); HEMATOCRIT 43 % (40-54); HEMOGLOBIN 14.9 g/dL (13.3-17.7); LYMPHOCYTES % (AUTO) 18 % (12-44); MEAN CORPUSCULAR HEMOGLOBIN 31 pg (25-34); MEAN CORPUSCULAR HGB CONC 35 g/dL (32-36); MEAN CORPUSCULAR VOLUME 91 fL (80-99); MEAN PLATELET VOLUME 9.7 fL (9.0-12.2); MONOCYTES % (AUTO) 10 % (0-12); NEUTROPHILS % (AUTO) 70 % (42-75); PLATELET COUNT 317 10^3/uL (130-400); WHITE BLOOD COUNT 10.5 10^3/uL (4.3-11.0)
[2021-09-20 20:03] LABS: EOSINOPHILS # (AUTO) 0.1 10^3/uL (0.0-0.3); LYMPHOCYTES # (AUTO) 1.9 X 10^3 (1.0-4.0); NEUTROPHILS # (AUTO) 7.4 X 10^3 (1.8-7.8)
[2021-09-20] MEDS ORDERED: DROPERIDOL 5 MG/2 ML (INAPSINE) ED ONLY! ONE (20:07)
[2021-09-20 20:22] LABS: BILIRUBIN,TOTAL 0.5 MG/DL (0.1-1.0); CALCIUM 9.7 MG/DL (8.5-10.1); CREATININE SERUM 0.73 MG/DL (0.60-1.30); POTASSIUM 4.4 MMOL/L (3.6-5.0)
[2021-09-20 20:23] LABS: ALBUMIN 4.1 GM/DL (3.2-4.5); TOTAL PROTEIN 7.4 GM/DL (6.4-8.2)
--- NOTE | 2021-09-20 20:28 | Diagnostic Imaging Report ---
EXAM: ACUTE ABD SERIES INDICATION: Generalized abdominal pain. COMPARISON: 09/11/2021. FINDINGS: Normal heart size and central pulmonary vascularity. Sternotomy. No focal pulmonary opacity. No pleural effusion or pneumothorax. No free intraperitoneal air. There are a few prominent gaseously distended loops of small bowel in the mid abdomen without marshal dilation. No large stool burden. Surgical clips in the upper abdomen. No acute osseous findings. IMPRESSION: 1. Nonspecific bowel gas pattern including a few gaseously distended loops of small bowel in the mid abdomen without marshal dilation. 2. No acute cardiopulmonary findings. Dictated by: Dictated on workstation # [id number]
[2021-09-20] MEDS ORDERED: LACTATED RINGERS 1,000 ML IV SCH (20:45)
[2021-09-20] MEDS ORDERED: HYOSCYAMINE 0.125 MG (LEVSIN) TAB PO ONE (21:15)
[2021-09-20] MEDS ORDERED: ACETAMINOPHEN 500 MG TAB (TYLENOL) PO ONE (21:15)
[2021-09-20 21:20] LABS: BILIRUBIN,URINE NEGATIVE (NEGATIVE); CLARITY,URINE CLEAR; COLOR,URINE YELLOW; GLUCOSE, URINE (UA) 3+ (NEGATIVE); KETONES,URINE NEGATIVE (NEGATIVE); LEUKOCYTE ESTERASE ,URINE NEGATIVE (NEGATIVE); NITRITE,URINE NEGATIVE (NEGATIVE); PH,URINE 5.5 (5-9); PROTEIN,URINE 2+ (NEGATIVE)
[2021-09-20 21:27] LABS: BACTERIA,URINE NEGATIVE /HPF; RBC,URINE 0-2 /HPF; SQUAMOUS EPITHELIAL CELL,UR RARE /HPF; URINE OTHER FEW SPERM /HPF; WBC,URINE RARE /HPF
[2021-09-20] MEDS ORDERED: CAPS42.514 TP (21:47)
[2021-09-20 22:00] VITALS: BP 139/69
== END 2021-09-20 22:00 | disposition home or self-care (01) ==
LOC: EDUNIT# 19:35 → ER FS 19:37
DX: R11.15 Cyclical vomiting syndrome unrelated to migraine (principal); J44.9 Chronic obstructive pulmonary disease, unspecified; I25.2 Old myocardial infarction; E11.9 Type 2 diabetes mellitus without complications; Z79.4 Long term (current) use of insulin
CPT/HCPCS: 36415; 74022; 80053; 81000; 83690; 85025

== ENCOUNTER 2021-10-23 17:51 | Emergency (ER) | payer MEDICAID ==
[~2021-10-23] VITALS: Ht 193 cm; Wt 72.6 kg
[~2021-10-23 17:51] MED LIST changes: +CAPS42.514 TP; +CYCL10TA25 PO; -CYCL10TA9 PO
--- OUTSIDE RECORDS SUMMARY | 2021-10-23 17:56 | XMS REPORT | Clinical Summary ---
Author Author [facility] Organization [facility] Address Unknown Phone Unavailable Care Team Providers Care Editor Magazine Name Role Phone Selina Mccauley MD Unavailable Anita Murdock MD Unavailable Kirsten Rooney NP PCP Source Comments Some departments are not documenting in the electronic medical record. If you d o not see the information that you expected, contact Release of Information in [facility] Unomy Information Management department at [phone] for further assistan ce in locating additional records.[facility] Allergies Comments Active Allergy Reactions Severity Noted Date Meperidine UNKNOWN 05/05/2012 Patient tolerated ceftriaxone at outside facility [facility]12 Penicillins UNKNOWN 09/25/2007 Medications End Date Status Medication Sig Dispensed Refills Start Date Active HYDROcodone/acetaminophen Take 1 tablet 0 05/07 (NORCO) 5/325 mg tablet by mouth 1 Active LEVEMIR FLEXTOUCH U-100 0 INSULN 100 unit/mL (3 mL) 1 injection pen Active Problems Problem Noted Date DM (diabetes mellitus) 06/28/2021 CHF (congestive heart failure) 06/28/2021 Cardiomyopathy 06/28/2021 History of open heart surgery 06/28/2021 Overview: Formatting of this note might be differ ent from the original. Age 18 months Hepatitis C 06/28/2021 Liver disease, chronic 06/28/2021 Medical History Medical History Date Comments Diabetes (HCC) Hepatic cirrhosis (HCC) Social History Date Tobacco Use Types Packs/Day [...] Signs Reading Time Taken Comments Vital Sign 124/90 07/01/2021 2:55 PM CDT Blood Pressure 89 07/01/2021 2:55 PM CDT Pulse 36.7 C (98.1 F) 05/08/2018 11:17 AM CDT Temperature 12 05/08/2018 11:17 AM CDT Respiratory Rate 98% 07/01/2021 2:55 PM CDT Oxygen Saturation - - Inhaled Oxygen Concentration 79.3 kg (174 lb 12.8 oz) 07/01/2021 2:55 PM CDT Weight 194.3 cm (6' 4.5") 07/01/2021 2:55 PM CDT pt reported Height 21 07/01/2021 2:55 PM CDT Body Mass Index Plan of Treatment Health Maintenance Due Date Last Done Comments MICROALBUMIN 1970 DILATED EYE EXAM 1988 DTAP/TDAP VACCINES (1 - 1988 Tdap) FOOT EXAM 1988 PHYSICAL (COMPREHENSIVE) 1988 EXAM HBA1C 11/08/2018 05/08/2018 COLORECTAL CANCER 2020 09/25/2007 SCREENING SHINGLES RECOMBINANT 2020 VACCINE (1 of 2) INFLUENZA VACCINE 06/06/2021 HIV SCREENING Completed 08/28/2009 Results Not on filefrom Last 3 Months Insurance Type Payer Benefit Subscriber ID Effective Phone Address Plan / Dates Group AETNA MEDICAID AETNA [id number] 2020- [phone] [address] Present [address] [facility] [place] [address] Advance Directives Patient News Analyst Explanation Type Date Recorded Advance 10/25/2016 10:34 AM Directive/DPOA Date Inactivated Comments Code Status Date Activated 05/08/2012 5:02 AM Full Code 05/05/2012 12:36 PM Provider has discussed Code Status Yes w/Patient or Family? Care Teams Start Date End Date Editor Magazine Relationship Specialty 07/01/21 Kirsten Rooney NP PCP - General Nurse [address] [place] [address] [place] [address] 05/05/12 Selina Mccauley MD Internal [address] [place] [address] Medicine Ortho[facility] Lvl [address] [place] [address] [id number] 05/10/12 Anita Murdock MD [facility] [address] [facility] [address] [place], [place] [id number]
[2021-10-23] MEDS ORDERED: ONDANSETRON 4 MG (ZOFRAN) ORAL DISSOLVE TAB SL STA (17:59)
[2021-10-23] MEDS ORDERED: ANTACID SUSP 30 ML UDC (MYLANTA) PO ONE (18:00)
[2021-10-23] MEDS ORDERED: LIDOCAINE 2% VISCOUS 15 ML UDC PO ONE (18:00)
--- NOTE | 2021-10-23 18:06 | ED GI ---
General Stated Complaint: ATE REALLY HOT CHIP, COUGHING,VOMITTING Source of Information: Patient Exam Limitations: No Limitations History of Present Illness Date Seen by Provider: Oct 23, 2021 Time Seen by Provider: 17:53 Initial Comments 51-year-old male with PMH of DM coming in after he did the "[place] one chip challenge" which includes eating a chip made from [place] Ad[place] peppers, Tabasco, jalapeno, and Hyde scorpion peppers. He took 1 bite and swallowed it roughly 45 minutes ago. The burning has been very severe, and he is having worse pain in his stomach now that his made it down there. He has been trying to vomit but has been unsuccessful. The pain is constant and severe. Denies any other acute complaints. Allergies and Home Medications Allergies Coded Allergies: Penicillins (Unverified Adverse Reaction, Unknown, 07/22/19) Patient Home Medication List Home Medication List Reviewed: Yes Capsaicin (Capsaicin) 42.5 Gm Cream..g., 42.5 GM TP Q12H PRN for PAIN-SEVERE (8- 10) Prescribed by: SOUMYA CARRERO on 09/20/21 2147 Hydrocodone/Acetaminophen (Hydrocodone-Acetamin 5-325 mg) 1 Each Tablet, 1 TAB PO Q4H PRN for PAIN-MODERATE (5-7) Prescribed by: ABEL PECK on 05/31/21 2325 Insulin Determir (Levemir) 1,000 Units/10 Ml Soln, 14 UNITS SQ BID Prescribed by: Whitney Lange on 09/10/21 1613 Insulin Lispro (Insulin Lispro Kwikpen U-100) 100 Unit/1 Ml Insuln.pen, 5 UNIT SQ ACHS, (Reported) Entered as Reported by: Whitney Lange on 09/10/21 1632 Metoclopramide HCl (Reglan) 10 Mg Tablet, 10 MG PO TID Prescribed by: ALAINA OLEARY on 09/13/21 1037 Oxycodone HCl/Acetaminophen (Percocet 7.5-325 mg Tablet) 1 Each Tablet, 1 TAB PO Q6H PRN for PAIN-MODERATE (5-7) Prescribed by: PURVI DAWSON on 01/08/21 1533 Review of Systems Review of Systems Constitutional: No chills, No fever EENTM: No Blurred Vision Respiratory: Denies Cough Cardiovascular: Denies Chest Pain Gastrointestinal: Abdominal Pain Genitourinary: Denies Burning Musculoskeletal: no symptoms reported Skin: no symptoms reported Psychiatric/Neurological: No Symptoms Reported Endocrine: No Symptoms Reported Hematologic/Lymphatic: No Symptoms Reported All Other Systems Reviewed Negative Unless Noted: Yes Past Fqntujz-Siybqf-Obwofj Hx Patient Social History Tobacco Use?: Yes Immunizations Up To Date Tetanus Booster (TDap): Unknown First/Initial COVID19 Vaccinat: 02/2021 Second COVID19 Vaccination [place]: Moderna 03/2021 Third COVID19 Vaccination Date: 02/2021 Seasonal Allergies Seasonal Allergies: No Past Medical History Surgery/Hospitalization HX: Insulin dependent DM Surgeries: Yes (UGI, ? Heart Surgery per prior hx family, R lower leg lesion removed) Cardiac, Gallbladder Respiratory: Yes COPD Currently Using CPAP: No Currently Using BIPAP: No Cardiac: Yes (heart surgery at 16mo for hole in heart; [place] 4 months ago, Systolic CHF) Atrial Fibrillation, Cardiomyopathy, Heart Attack, Irregular Heartbeat Neurological: No Genitourinary: No Gastrointestinal: Yes (Gastritis, Duodenitis, frequent alcohol intake, Hep C) Hepatitis Musculoskeletal: Yes Fractures Endocrine: Yes (Refuses to monitor blood sugar and to use insulin) Diabetes, Insulin dep HEENT: No Cancer: No Psychosocial: Yes (polysubstance abuse ) Anxiety Integumentary: Yes (Hidradenitis Suppurative, frequent abscesses, necrotizing fasciitis) Blood Disorders: Yes (Hep C+) Adverse Reaction/Blood Tranf: No Family Medical History No Pertinent Family Hx Physical Exam Vital Signs Vital Signs - First Documented 10/23/21 17:56 Temp 36.4 Pulse 92 Resp 17 B/P (MAP) 154/88 (110) O2 Delivery Room Air Capillary Refill : Height/Weight/BMI Height: '" Weight: 192lbs. 4.0oz. [id number]; 23.00 BMI Method: General Appearance: WD/WN, no apparent distress HEENT: PERRL/EOMI, normal ENT inspection, pharynx normal Neck: non-tender, full range of motion, supple, normal inspection Respiratory: chest non-tender, lungs clear, normal breath sounds, no respiratory distress, no accessory muscle use Cardiovascular: regular rate, rhythm, no edema, no murmur Gastrointestinal: normal bowel sounds, non tender, soft; No distended, No guarding, No rebound Extremities: normal range of motion, non-tender, normal inspection, no pedal edema, no calf tenderness, normal capillary refill Back: normal inspection, no CVA tenderness, no vertebral tenderness Neurologic/Psychiatric: no motor/sensory deficits, alert, normal mood/affect Skin: normal color, warm/dry Lymphatic: no adenopathy Procedures/Interventions Date of ETT Placement: Jul 23, 2019 Time of ETT Placement: 05 Progress/Results/Core Measures Results/Orders My Orders Orders - SOUMYA CARRERO MD Ondansetron Oral Dissolve Tab (Zofran (10/23/21 17:59) Lidocaine 2% Viscous 15 Ml (Xylocaine Vi (10/23/21 18:00) Antacid Suspension (Mylanta Suspension (10/23/21 18:00) Medications Given in ED Current Medications Medications Dose Ordered Sig/Scarlett Route Start Time Stop Time Status Last Admin Dose Admin Al Hydrox/Mg Hydrox/Simethicone 30 ml ONCE ONCE PO 10/23/21 18:00 10/23/21 18:01 DC 10/23/21 18:10 30 ML Lidocaine HCl 15 ml ONCE ONCE PO 10/23/21 18:00 10/23/21 18:01 DC 10/23/21 18:10 15 ML Vital Signs/I&O 10/23/21 17:56 Temp 36.4 Pulse 92 Resp 17 B/P (MAP) 154/88 (110) O2 Delivery Room Air Progress Progress Note : Progress Note 51-year-old male with above history coming in after eating a [place] Reaper pepper which is as of yet the hottest pepper in the world. He is having severe pain, as one does when you have the hottest pepper in the world. We will trial some Mylanta and viscous lidocaine to see if we can give him any relief, but my suspicion is these will not be very effective. I discussed with the patient that unfortunately there is not a lot medically we can do for him. Vitals have remained stable and this will just need to get better with time. He was then discharged in stable condition with strict return precautions. Departure Impression Primary Impression: Adverse reaction to food Qualified Codes: T78.1XXA - Other adverse food reactions, not elsewhere classified, initial encounter Disposition: HOME, SELF-CARE Condition: Stable Departure-Patient Inst. Decision time for Depature: 18:30 Referrals: ZULMA HERRERA APRN (PCP/Family) Primary Care Physician Add. Discharge Instructions: You were seen in the emergency department after you had something with Britney almanzar in it. Your symptoms will likely worsen for the next hour or so before the slightly start to get better. You have varying degrees of stomach discomfort. It likely will hurt when you are having a bowel movement tomorrow as well. You can expect to have some diarrhea and possibly some nausea. Things like milk or bread can help with the spiciness if you are having this sensation in your mouth. There is no real cure or instant fix for this. Time just fixes it. SOUMYA CARRERO MD Oct 23, 2021 18:06
[2021-10-23 18:34] VITALS: BP 157/88
== END 2021-10-23 18:34 | disposition home or self-care (01) ==
LOC: EDUNIT# 17:51 → ER FS 17:52
DX: T78.1XXA Other adverse food reactions, not elsewhere classified, initial encounter (principal); J44.9 Chronic obstructive pulmonary disease, unspecified; I25.2 Old myocardial infarction; E11.9 Type 2 diabetes mellitus without complications; Z79.4 Long term (current) use of insulin
CPT/HCPCS: 99283

== ENCOUNTER 2021-11-07 13:23 | Emergency (ER) | payer MEDICAID ==
[~2021-11-07] VITALS: Ht 193 cm; Wt 80.0 kg
[2021-11-07] MEDS ORDERED: LACTATED RINGERS 1,000 ML IV STA (13:48)
--- NOTE | 2021-11-07 13:55 | ED Abdominal Pain ---
General Chief Complaint: Abdominal/GI Problems Stated Complaint: ABD PAIN; VOMITING; DIARRHEA Source of Information: Patient Exam Limitations: No Limitations History of Present Illness Date Seen by Provider: Nov 07, 2021 Time Seen by Provider: 13:26 Initial Comments 51-year-old male with past medical history of diabetes is insulin-dependent and cyclical vomiting coming in due to lower abdominal pain, nonbloody nonbilious vomiting, and diarrhea. Symptoms have been ongoing for roughly 6 days. He says today he noticed bloody stools. He says he has had at least 2 bottles of Pepto- Bismol as well within the past 48 hours. Denies any fever, cough, shortness of breath, chest pain, weakness, numbness, rash, headache, vision changes, or any other concerns. Says he last smoked marijuana he believes 2 weeks ago. Allergies and Home Medications Allergies Coded Allergies: Penicillins (Unverified Adverse Reaction, Unknown, 07/22/19) Patient Home Medication List Home Medication List Reviewed: Yes Capsaicin (Capsaicin) 42.5 Gm Cream..g., 42.5 GM TP Q12H PRN for PAIN-SEVERE (8- 10) Prescribed by: SOUMYA CARRERO on 09/20/21 2147 Hydrocodone/Acetaminophen (Hydrocodone-Acetamin 5-325 mg) 1 Each Tablet, 1 TAB PO Q4H PRN for PAIN-MODERATE (5-7) Prescribed by: ABEL PECK on 05/31/21 2325 Insulin Determir (Levemir) 1,000 Units/10 Ml Soln, 14 UNITS SQ BID Prescribed by: Whitney Lange on 09/10/21 1613 Insulin Lispro (Insulin Lispro Kwikpen U-100) 100 Unit/1 Ml Insuln.pen, 5 UNIT SQ ACHS, (Reported) Entered as Reported by: Whitney Lange on 09/10/21 1632 Metoclopramide HCl (Reglan) 10 Mg Tablet, 10 MG PO TID Prescribed by: ALAINA OLEARY on 09/13/21 1037 Oxycodone HCl/Acetaminophen (Percocet 7.5-325 mg Tablet) 1 Each Tablet, 1 TAB PO Q6H PRN for PAIN-MODERATE (5-7) Prescribed by: PURVI DAWSON on 01/08/21 1533 Review of Systems Review of Systems Constitutional: No chills, No fever EENTM: No Blurred Vision Respiratory: Denies Cough, Denies Shortness of Air Cardiovascular: Denies Chest Pain Gastrointestinal: Abdominal Pain, Diarrhea, Nausea, Vomiting Genitourinary: No Symptoms Reported Musculoskeletal: no symptoms reported Skin: no symptoms reported Psychiatric/Neurological: No Symptoms Reported Endocrine: No Symptoms Reported Hematologic/Lymphatic: No Symptoms Reported All Other Systems Reviewed Negative Unless Noted: Yes Past Mvlskug-Krbvib-Amvluw Hx Patient Social History Tobacco Use?: Yes Substance use?: Yes Immunizations Up To Date Tetanus Booster (TDap): Unknown First/Initial COVID19 Vaccinat: 02/2021 Second COVID19 Vaccination [place]: Moderna 03/2021 Third COVID19 Vaccination Date: 02/2021 Seasonal Allergies Seasonal Allergies: No Past Medical History Surgery/Hospitalization HX: Insulin dependent DM Surgeries: Yes (UGI, ? Heart Surgery per prior hx family, R lower leg lesion removed) Cardiac, Gallbladder Respiratory: Yes COPD Currently Using CPAP: No Currently Using BIPAP: No Cardiac: Yes (heart surgery at 16mo for hole in heart; [place] 4 months ago, Systolic CHF) Atrial Fibrillation, Cardiomyopathy, Heart Attack, Irregular Heartbeat Neurological: No Genitourinary: No Gastrointestinal: Yes (Gastritis, Duodenitis, frequent alcohol intake, Hep C) Hepatitis Musculoskeletal: Yes Fractures Endocrine: Yes (Refuses to monitor blood sugar and to use insulin) Diabetes, Insulin dep HEENT: No Cancer: No Psychosocial: Yes (polysubstance abuse ) Anxiety Integumentary: Yes (Hidradenitis Suppurative, frequent abscesses, necrotizing fasciitis) Blood Disorders: Yes (Hep C+) Adverse Reaction/Blood Tranf: No Family Medical History No Pertinent Family Hx Physical Exam Vital Signs Vital Signs - First Documented 11/07/21 14:06 Pulse 96 Resp 20 B/P (MAP) 142/113 (123) O2 Delivery Room Air Capillary Refill : Height/Weight/BMI Height: '" Weight: 192lbs. 4.0oz. 87.084470oi; 19.00 BMI Method: General Appearance: WD/WN, no apparent distress HEENT: PERRL/EOMI, normal ENT inspection, pharynx normal Neck: non-tender, full range of motion, supple, normal inspection Respiratory: chest non-tender, lungs clear, normal breath sounds, no respirato ry distress, no accessory muscle use Cardiovascular: regular rate, rhythm, no edema, no murmur Gastrointestinal: normal bowel sounds, non tender, soft; No distended, No guarding, No rebound Rectal: normal exam, normal rectal tone, heme negative stool (stool was liquid and orange/pink) Extremities: normal range of motion, non-tender, normal inspection, no pedal edema, no calf tenderness, normal capillary refill Neurologic/Psychiatric: no motor/sensory deficits, alert, normal mood/affect Skin: normal color, warm/dry Lymphatic: no adenopathy Focused Exam Lactate Level 11/07/21 13:40: Lactic Acid Level 1.50 Lactic Acid Level Laboratory Tests Test 11/07/21 13:40 Lactic Acid Level 1.50 MMOL/L (0.50-2.00) Procedures/Interventions Date of ETT Placement: Jul 23, 2019 Time of ETT Placement: 05 Progress/Results/Core Measures Results/Orders Lab Results Laboratory Tests Test 11/07/21 13:40 11/07/21 13:50 Range/Units Prothrombin Time 13.0 12.2-14.7 SEC INR Comment 1.0 0.8-1.4 Activated Partial Thromboplast Time 23 L 24-35 SEC Sodium Level 132 L 135-145 MMOL/L Potassium Level 3.9 3.6-5.0 MMOL/L Chloride Level 94 L 98-107 MMOL/L Carbon Dioxide Level 21 21-32 MMOL/L Anion Gap 17 H 5-14 MMOL/L Blood Urea Nitrogen 18 7-18 MG/DL Creatinine 0.81 0.60-1.30 MG/DL Estimat Glomerular Filtration Rate 100 BUN/Creatinine Ratio 22 Glucose Level 308 H 70-105 MG/DL Lactic Acid Level 1.50 0.50-2.00 MMOL/L Calcium Level 9.2 8.5-10.1 MG/DL Corrected Calcium 9.0 8.5-10.1 MG/DL Total Bilirubin 0.3 0.1-1.0 MG/DL Aspartate Amino Transf (AST/SGOT) 22 5-34 U/L Alanine Aminotransferase (ALT/SGPT) 23 0-55 U/L Alkaline Phosphatase 98 40-136 U/L Total Protein 7.4 6.4-8.2 GM/DL Albumin 4.2 3.2-4.5 GM/DL Lipase 16 8-78 U/L White Blood Count 16.6 H 4.3-11.0 10^3/uL Red Blood Count 5.13 4.30-5.52 10^6/uL Hemoglobin 16.0 13.3-17.7 g/dL Hematocrit 45 40-54 % Mean Corpuscular Volume 88 80-99 fL Mean Corpuscular Hemoglobin 31 25-34 pg Mean Corpuscular Hemoglobin Concent 35 32-36 g/dL Red Cell Distribution Width 11.8 10.0-14.5 % Platelet Count 365 130-400 10^3/uL Mean Platelet Volume 10.1 9.0-12.2 fL Immature Granulocyte % (Auto) 0 % Neutrophils (%) (Auto) 77 H 42-75 % Lymphocytes (%) (Auto) 15 12-44 % Monocytes (%) (Auto) 7 0-12 % Eosinophils (%) (Auto) 0 0-10 % Basophils (%) (Auto) 0 0-10 % Neutrophils # (Auto) 12.8 H 1.8-7.8 X 10^3 Lymphocytes # (Auto) 2.5 1.0-4.0 X 10^3 Monocytes # (Auto) 1.1 H 0.0-1.0 X 10^3 Eosinophils # (Auto) 0.1 0.0-0.3 10^3/uL Basophils # (Auto) 0.1 0.0-0.1 10^3/uL Immature Granulocyte # (Auto) 0.1 0.0-0.1 10^3/uL Neutrophils % (Manual) 78 % Lymphocytes % (Manual) 16 % Monocytes % (Manual) 5 % Eosinophils % (Manual) 1 % Toxic Granulation 4+ My Orders Orders - SOUMYA CARRERO MD Cbc With Automated Diff (11/07/21 13:48) Comprehensive Metabolic Panel (11/07/21 13:48) Lactic Acid Analyzer (11/07/21 13:48) Lipase (11/07/21 13:48) Protime With Inr (11/07/21 13:48) Partial Thromboplastin Time (11/07/21 13:48) Lactated Ringers (Lr 1000 Ml Iv Solution (11/07/21 13:48) Ed Iv/Invasive Line Start (11/07/21 13:48) Covid 19 Inhouse Test (11/07/21 13:48) Influenza A & B Antigens (11/07/21 13:48) Droperidol Inj (Ed Only) (Inapsine Inj ( (11/07/21 14:00) Manual Differential (11/07/21 13:50) Medications Given in ED Current Medications Medications Dose Ordered Sig/Scarlett Route Start Time Stop Time Status Last Admin Dose Admin Droperidol 2.5 mg ONCE ONCE IV 11/07/21 14:00 11/07/21 14:01 DC 11/07/21 14:00 2.5 MG Vital Signs/I&O 11/07/21 14:06 Pulse 96 Resp 20 B/P (MAP) 142/113 (123) O2 Delivery Room Air Progress Progress Note : Progress Note 51-year-old male with above history coming in due to 6 days of vomiting and diarrhea and he believed red stools today. ABCs were intact and vitals were stable on presentation. Physical exam with a soft and nontender abdomen as long as he was distracted. An IV was placed and basic labs including LFTs obtained. He was given a bolus of IV fluids and droperidol for nausea and abdominal pain as this has worked for him in the past for similar symptoms. His stool was orange/pink, and occult blood negative. It did not look like fresh blood to me and I do not see any obvious hemorrhoids or other causes. Could be due to the large amount of Pepto-Bismol he drank recently. His hemoglobin was 16 and appears hemoconcentrated. His IV fluids should help with this. Creatinine otherwise okay, LFTs okay, lipase normal. Lactate normal. Flu test negative Covid test is pending at this time. Reassessment after the fluids and droperidol he says he was feeling better. I believe he is stable for discharge with outpatient follow-up. He was sent home with strict return precautions. Prior to discharge, I did a repeat abdominal exam and he continued to have no signs of peritonitis. Departure Impression Primary Impression: Vomiting and diarrhea Disposition: HOME, SELF-CARE Condition: Stable Departure-Patient Inst. Decision time for Depature: 14:32 Referrals: ZULMA HERRERA APRN (PCP) Primary Care Physician [facility] (Family) Primary Care Physician Patient Instructions: Diarrhea, Adult ED, Nausea and Vomiting, Adult (DC) Add. Discharge Instructions: You are seen in the emergency department for vomiting and diarrhea with abdominal pain. Your labs were reassuring but it did look like you are dehydrated so we did give you IV fluids. We have sent some nausea medicine to [facility] since they are the only pharmacy open today. Your Covid test will take some time to get back. Your flu test was negative. Scripts Promethazine HCl (Promethazine Tablet) 25 Mg Tablet 25 MG PO Q6H PRN for NAUSEA/VOMITING for 5 Days, #20 TAB Prov: SOUMYA CARRERO MD 11/07/21 SOUMYA CARRERO MD Nov 07, 2021 13:54
[2021-11-07 13:59] LABS: BASOPHILS # (AUTO) 0.1 10^3/uL (0.0-0.1); BASOPHILS % (AUTO) 0 % (0-10); EOSINOPHILS # (AUTO) 0.1 10^3/uL (0.0-0.3); EOSINOPHILS % (AUTO) 0 % (0-10); HEMATOCRIT 45 % (40-54); LYMPHOCYTES # (AUTO) 2.5 X 10^3 (1.0-4.0); LYMPHOCYTES % (AUTO) 15 % (12-44); MEAN CORPUSCULAR HEMOGLOBIN 31 pg (25-34); MEAN CORPUSCULAR HGB CONC 35 g/dL (32-36); MEAN CORPUSCULAR VOLUME 88 fL (80-99); MEAN PLATELET VOLUME 10.1 fL (9.0-12.2); MONOCYTES # (AUTO) 1.1 X 10^3 (0.0-1.0); MONOCYTES % (AUTO) 7 % (0-12); NEUTROPHILS # (AUTO) 12.8 X 10^3 (1.8-7.8); NEUTROPHILS % (AUTO) 77 % (42-75); PLATELET COUNT 365 10^3/uL (130-400); WHITE BLOOD COUNT 16.6 10^3/uL (4.3-11.0)
[2021-11-07] MEDS ORDERED: DROPERIDOL 5 MG/2 ML (INAPSINE) ED ONLY! IV ONE (14:00)
[2021-11-07 14:10] LABS: ALBUMIN 4.2 GM/DL (3.2-4.5); BILIRUBIN,TOTAL 0.3 MG/DL (0.1-1.0); CALCIUM 9.2 MG/DL (8.5-10.1); CREATININE SERUM 0.81 MG/DL (0.60-1.30); POTASSIUM 3.9 MMOL/L (3.6-5.0); TOTAL PROTEIN 7.4 GM/DL (6.4-8.2)
[2021-11-07 14:22] LABS: EOSINOPHILS % (MANUAL) 1 %; LYMPHOCYTES % (MANUAL) 16 %; MONOCYTES % (MANUAL) 5 %; NEUTROPHILS % (MANUAL) 78 %
[2021-11-07 14:23] LABS: TOXIC GRANULATION/VACUOLAZATIO 4+
[2021-11-07] MEDS ORDERED: PROM25TA14 PO (14:34)
[2021-11-07 14:47] VITALS: BP 142/87
[2021-11-08] MEDS ORDERED: MTC10T PO ×2 (22:36→22:38)
[2021-11-08] MEDS ORDERED: DICY20TA PO ×2 (22:36→22:38)
[2021-11-08] MEDS ORDERED: ACHD5005 PO ×2 (22:36→22:38)
== END 2021-11-07 14:40 | disposition home or self-care (01) ==
LOC: EDUNIT# 13:23 → ER FS 13:25
DX: R11.10 Vomiting, unspecified (principal); R19.7 Diarrhea, unspecified; J44.9 Chronic obstructive pulmonary disease, unspecified; I25.2 Old myocardial infarction; E11.9 Type 2 diabetes mellitus without complications; Z72.0 Tobacco use; Z79.4 Long term (current) use of insulin; Z20.822 Contact with and (suspected) exposure to COVID-19
CPT/HCPCS: 36415; 80053; 83605; 83690; 85007; 85027; 85610; 85730; 87635; 87636; 87804

== ENCOUNTER 2021-11-08 17:21 | Emergency (ER) | payer MEDICAID ==
[~2021-11-08] VITALS: Ht 193 cm; Wt 82.5 kg
[2021-11-08] MEDS ORDERED: NS IV 1000 ML 1,000 ML IV STA (18:22)
[2021-11-08] MEDS ORDERED: DROPERIDOL 5 MG/2 ML (INAPSINE) ED ONLY! IV STA (18:22)
[2021-11-08] MEDS ORDERED: fentaNYL INJ 100 MCG/2 ML AMP IVP STA ×2 (18:42→22:26)
[2021-11-08] MEDS ORDERED: PANTOPRAZOLE 40 MG (PROTONIX) VIAL IV STA (18:42)
[2021-11-08 18:43] LABS: BILIRUBIN,URINE NEGATIVE (NEGATIVE); CLARITY,URINE CLEAR; COLOR,URINE YELLOW; GLUCOSE, URINE (UA) 3+ (NEGATIVE); KETONES,URINE NEGATIVE (NEGATIVE); LEUKOCYTE ESTERASE ,URINE NEGATIVE (NEGATIVE); NITRITE,URINE NEGATIVE (NEGATIVE); PROTEIN,URINE 2+ (NEGATIVE)
[2021-11-08 18:53] LABS: BACTERIA,URINE NEGATIVE /HPF; HYALINE CASTS, URINE 0-2 /LPF; RBC,URINE 0-2 /HPF; SQUAMOUS EPITHELIAL CELL,UR RARE /HPF; WBC,URINE 0-2 /HPF
[2021-11-08] MEDS ORDERED: HOLD METFORMIN - RECEIVED CONTRAST 20 ML VIAL IV SCH (19:00)
[2021-11-08] MEDS ORDERED: IOHEXOL 350 MG/ML 100 ML (OMNIPAQUE 350) VIAL IV ONE (19:00)
[2021-11-08] MEDS ORDERED: NS 100 ML (IVPB) BAG IV ONE (19:00)
[2021-11-08 19:21] LABS: HEMATOCRIT 45 % (40-54); HEMOGLOBIN 15.7 g/dL (13.3-17.7); MEAN CORPUSCULAR HEMOGLOBIN 31 pg (25-34); MEAN CORPUSCULAR VOLUME 89 fL (80-99); WHITE BLOOD COUNT 10.2 10^3/uL (4.3-11.0)
[2021-11-08 19:22] LABS: BASOPHILS % (AUTO) 0 % (0-10); EOSINOPHILS # (AUTO) 0.1 10^3/uL (0.0-0.3); EOSINOPHILS % (AUTO) 1 % (0-10); LYMPHOCYTES # (AUTO) 2.2 X 10^3 (1.0-4.0); LYMPHOCYTES % (AUTO) 22 % (12-44); MEAN CORPUSCULAR HGB CONC 35 g/dL (32-36); MEAN PLATELET VOLUME 10.2 fL (9.0-12.2); MONOCYTES # (AUTO) 0.8 X 10^3 (0.0-1.0); MONOCYTES % (AUTO) 8 % (0-12); NEUTROPHILS # (AUTO) 7.1 X 10^3 (1.8-7.8); NEUTROPHILS % (AUTO) 69 % (42-75); PLATELET COUNT 316 10^3/uL (130-400)
[2021-11-08 19:39] LABS: BILIRUBIN,TOTAL 0.4 MG/DL (0.1-1.0); CALCIUM 9.5 MG/DL (8.5-10.1); CREATININE SERUM 0.82 MG/DL (0.60-1.30); POTASSIUM 4.4 MMOL/L (3.6-5.0)
[2021-11-08 19:40] LABS: ALBUMIN 4.4 GM/DL (3.2-4.5); TOTAL PROTEIN 7.5 GM/DL (6.4-8.2)
--- NOTE | 2021-11-08 19:53 | Diagnostic Imaging Report ---
CLINICAL INDICATION: Patient with right side abdominal pain x2 days with nausea. EXAM: Axial CT scan of the abdomen and pelvis performed with 100 mL of Omnipaque 350 IV contrast. Sagittal and coronal reformatted images are created. Auto Exposure Controls were utilized during the CT exam to meet ALARA standards for radiation dose reduction. COMPARISON: CT scan of the abdomen and pelvis dated 09/08/2021. FINDINGS: There is curvilinear opacities in both lung bases which may represent atelectasis versus scarring. There are small spurs involving both hips. The gallbladder surgically absent, as noted on the prior study as well. There is diffuse low-density seen throughout the liver which may be related to diffuse fatty infiltration of the liver. The liver, spleen, pancreas, and adrenal glands are unremarkable. Both kidneys are unremarkable with no hydronephrosis, stone, or mass. There is no intra-abdominal free air or free fluid. There is no intestinal obstruction. The appendix is unremarkable. There is no lymphadenopathy. Bladder is fluid-filled and unremarkable. Prostate gland shows no significant abnormality. There is wall thickening of the rectum, sigmoid colon, descending colon, and portions of the transverse colon which may be related to contraction versus colitis. There is diverticula involving the sigmoid and descending colon. The stomach and small bowel show no significant abnormality. The extra-abdominal and extrapelvic soft tissue structures are unremarkable. IMPRESSION: 1: There is interval development of wall thickening involving the rectum, sigmoid colon, descending colon, and portions of the transverse colon. These findings may be related to contraction, but colitis may also be considered. There is diverticulosis with no CT evidence of diverticulitis. 2: Remainder of this exam shows no acute abdominal or pelvic process. 3: There is diffuse fatty infiltration of the liver. 4: The remainder of this exam shows no significant interval change compared to the prior study of comparison. Dictated by: Dictated on workstation # [id number]
--- NOTE | 2021-11-08 20:56 | ED GI ---
General Chief Complaint: Abdominal/GI Problems Stated Complaint: ABD PAIN Nursing Triage Note: PT AMBULATE TO ROOM FS04 WITH C/O ABD PAIN. PT STATES HE WAS SEEN IN THIS ED YESTERDAY FOR SAME C/O AND PRESCRIBED MEDS. PT STATES HE PICKED UP THE PRESCRIBED MEDS THIS EVENING AND THAT THEY ARE NOT HELPING. PT DENIES VOMITING. Source of Information: Patient, Old Records History of Present Illness Date Seen by Provider: Nov 08, 2021 Time Seen by Provider: 18:04 Initial Comments 51-year-old male presenting with complaints of recurrent abdominal pain with nausea and vomiting. He states that he was seen in the emergency department yesterday and felt like nothing was done for him. He had been prescribed a nausea medicine and it was not helping. He denied any active vomiting currently. His main concern was that he was having abdominal pain and not able to eat or drink. He had pain primarily on the right side of his abdomen. He insists that it has been over 2 weeks since he last used any marijuana and that marijuana was not the cause of his symptoms. He has not tried to get back in with the clinic for seeing GI specialist by his problems. He denied any fever, chills, burning with urination, blood in his stools, blood in the vomit, cough, shortness of breath. Timing/Duration: 1 Week Severity/Quality: Severe, Sharp Location: RUQ, RLQ Radiation: RUQ, RLQ Activities at Onset: None Modifying Factors: Worsens With Movement Associated Symptoms: No Back Pain, No Chest Pain, No Diaphoresis, No Fever/Chills, No Fatigue, No Headache, No Heartburn; Nausea/Vomiting; No Shortness of Air, No Swelling/Mass in Abdomen, No Syncope, No Weakness Allergies and Home Medications Allergies Coded Allergies: Penicillins (Unverified Adverse Reaction, Unknown, 07/22/19) Patient Home Medication List Home Medication List Reviewed: Yes Capsaicin (Capsaicin) 42.5 Gm Cream..g., 42.5 GM TP Q12H PRN for PAIN-SEVERE (8- 10) Prescribed by: SOUMYA CARRERO on 09/20/212146 Dicyclomine HCl (Dicyclomine HCl) 20 Mg Tablet, 20 MG PO Q6H PRN for abdominal cramping/pain Prescribed by: ALYSIA GERARD on 11/08/212237 Hydrocodone/Acetaminophen (Hydrocodone-Acetamin 5-325 mg) 1 Each Tablet, 1 TAB PO Q4H PRN for PAIN-MODERATE (5-7) Prescribed by: ABEL PECK on 05/31/212324 Hydrocodone/Acetaminophen (Hydrocodone-Acetamin 5-325 mg) 1 Each Tablet, 1 TAB PO Q4H PRN for PAIN-SEVERE (8-10) Prescribed by: ALYSIA GERARD on 11/08/212237 Insulin Determir (Levemir) 1,000 Units/10 Ml Soln, 14 UNITS SQ BID Prescribed by: Whitney Lange on 09/10/21 1613 Insulin Lispro (Insulin Lispro Kwikpen U-100) 100 Unit/1 Ml Insuln.pen, 5 UNIT SQ ACHS, (Reported) Entered as Reported by: Whitney Lange on 09/10/21 1632 Metoclopramide HCl (Reglan) 10 Mg Tablet, 10 MG PO TID Prescribed by: ALAINA OLEARY on 09/13/21 1037 Metoclopramide HCl (Metoclopramide HCl) 10 Mg Tablet, 10 MG PO TID PRN for NAUSEA/VOMITING Prescribed by: ALYSIA GERARD on 11/08/212237 Oxycodone HCl/Acetaminophen (Percocet 7.5-325 mg Tablet) 1 Each Tablet, 1 TAB PO Q6H PRN for PAIN-MODERATE (5-7) Prescribed by: PURVI DAWSON on 01/08/21 1533 Discontinued Medications Promethazine HCl (Promethazine Tablet) 25 Mg Tablet, 25 MG PO Q6H PRN for NAUSEA/VOMITING Prescribed by: SOUMYA CARRERO on 11/07/21 1434 Review of Systems Review of Systems Constitutional: see HPI EENTM: No Symptoms Reported Respiratory: No Symptoms Reported Cardiovascular: No Symptoms Reported Gastrointestinal: See HPI Genitourinary: No Symptoms Reported Musculoskeletal: no symptoms reported Skin: No rash Psychiatric/Neurological: Headache Past Wvpoogq-Ehnygg-Pucxfx Hx Patient Social History Tobacco Use?: Yes Tobacco type used: Cigarettes Smoking Status: Current Everyday Smoker Smokeless Tobacco Frequency: Never a User Use of E-Cig and/or Vaping dev: No Use of E-Cig and/or Vaping Jewel: Never a User Substance use?: Yes Substance type: Marijuana Substance frequency: Daily Alcohol Use?: No Pt feels they are or have been: No Immunizations Up To Date Tetanus Booster (TDap): Unknown First/Initial COVID19 Vaccinat: UNKNOWN DATE Second COVID19 Vaccination [place]: UNKNOWN DATE Third COVID19 Vaccination Date: 02/2021 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 Heart Surgery per prior hx family, R lower leg lesion removed) Cardiac, Gallbladder Respiratory: Yes COPD Currently Using CPAP: No Currently Using BIPAP: No Cardiac: Yes (heart surgery at 16mo for hole in heart; [place] 4 months ago, Systolic CHF) Atrial Fibrillation, Cardiomyopathy, Heart Attack, Irregular Heartbeat Neurological: No Genitourinary: No Gastrointestinal: Yes (Gastritis, Duodenitis, frequent alcohol intake, Hep C) Hepatitis Musculoskeletal: Yes Fractures Endocrine: Yes (Refuses to monitor blood sugar and to use insulin) Diabetes, Insulin dep HEENT: No Cancer: No Psychosocial: Yes (polysubstance abuse ) Anxiety Integumentary: Yes (Hidradenitis Suppurative, frequent abscesses, necrotizing fasciitis) Blood Disorders: Yes (Hep C+) Adverse Reaction/Blood Tranf: No Family Medical History No Pertinent Family Hx Physical Exam Vital Signs Vital Signs - First Documented 11/08/21 11/08/21 17:25 22:40 Temp 36.1 Pulse 91 Resp 18 B/P (MAP) 173/101 (125) Pulse Ox 98 O2 Delivery Room Air Capillary Refill : Less Than 3 Seconds Height/Weight/BMI Height: '" Weight: 192lbs. 4.0oz. 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, alert, oriented x 3 Skin: normal color, warm/dry Images 1 - Right-sided abdominal pain Focused Exam Lactate Level 11/08/21 20:00: Lactic Acid Level 0.98 Lactic Acid Level Laboratory Tests Test 11/08/21 20:00 Lactic Acid Level 0.98 MMOL/L (0.50-2.00) Procedures/Interventions Date of ETT Placement: Jul 23, 2019 Time of ETT Placement: 0546 Progress/Results/Core Measures Results/Orders Lab Results Laboratory Tests Test 11/08/21 17:27 11/08/21 18:44 11/08/21 20:00 Range/Units Urine Color YELLOW Urine Clarity CLEAR Urine pH 6.0 5-9 Urine Specific [place] 1.020 1.016-1.022 Urine Protein 2+ H NEGATIVE Urine Glucose (UA) 3+ H NEGATIVE Urine Ketones NEGATIVE NEGATIVE Urine Nitrite NEGATIVE NEGATIVE Urine Bilirubin NEGATIVE NEGATIVE Urine Urobilinogen 0.2 < = 1.0 MG/DL Urine Leukocyte Esterase NEGATIVE NEGATIVE Urine RBC (Auto) TRACE-I H NEGATIVE Urine RBC 0-2 /HPF Urine WBC 0-2 /HPF Urine Squamous Epithelial Cells RARE /HPF Urine Crystals NONE /LPF Urine Bacteria NEGATIVE /HPF Urine Casts PRESENT /LPF Urine Hyaline Casts 0-2 H /LPF Urine Mucus SMALL H /LPF Urine Culture Indicated NO White Blood Count 10.2 4.3-11.0 10^3/uL Red Blood Count 5.05 4.30-5.52 10^6/uL Hemoglobin 15.7 13.3-17.7 g/dL Hematocrit 45 40-54 % Mean Corpuscular Volume 89 80-99 fL Mean Corpuscular Hemoglobin 31 25-34 pg Mean Corpuscular Hemoglobin Concent 35 32-36 g/dL Red Cell Distribution Width 12.1 10.0-14.5 % Platelet Count 316 130-400 10^3/uL Mean Platelet Volume 10.2 9.0-12.2 fL Immature Granulocyte % (Auto) 0 % Neutrophils (%) (Auto) 69 42-75 % Lymphocytes (%) (Auto) 22 12-44 % Monocytes (%) (Auto) 8 0-12 % Eosinophils (%) (Auto) 1 0-10 % Basophils (%) (Auto) 0 0-10 % Neutrophils # (Auto) 7.1 1.8-7.8 X 10^3 Lymphocytes # (Auto) 2.2 1.0-4.0 X 10^3 Monocytes # (Auto) 0.8 0.0-1.0 X 10^3 Eosinophils # (Auto) 0.1 0.0-0.3 10^3/uL Basophils # (Auto) 0.0 0.0-0.1 10^3/uL Immature Granulocyte # (Auto) 0.0 0.0-0.1 10^3/uL Sodium Level 137 135-145 MMOL/L Potassium Level 4.4 3.6-5.0 MMOL/L Chloride Level 101 98-107 MMOL/L Carbon Dioxide Level 26 21-32 MMOL/L Anion Gap 10 5-14 MMOL/L Blood Urea Nitrogen 13 7-18 MG/DL Creatinine 0.82 0.60-1.30 MG/DL Estimat Glomerular Filtration Rate 99 BUN/Creatinine Ratio 16 Glucose Level 277 H 70-105 MG/DL Calcium Level 9.5 8.5-10.1 MG/DL Corrected Calcium 9.2 8.5-10.1 MG/DL Total Bilirubin 0.4 0.1-1.0 MG/DL Aspartate Amino Transf (AST/SGOT) 20 5-34 U/L Alanine Aminotransferase (ALT/SGPT) 21 0-55 U/L Alkaline Phosphatase 95 40-136 U/L Total Protein 7.5 6.4-8.2 GM/DL Albumin 4.4 3.2-4.5 GM/DL Lipase 22 8-78 U/L Lactic Acid Level 0.98 0.50-2.00 MMOL/L My Orders Orders - ALYSIA GERARD MD Comprehensive Metabolic Panel (11/08/21 18:19) Lipase (11/08/21 18:19) Ua Culture If Indicated (11/08/21 18:19) Ed Iv/Invasive Line Start (11/08/21 18:19) Cbc With Automated Diff (11/08/21 18:19) Lactic Acid Analyzer (11/08/21 18:19) Ns Iv 1000 Ml (Sodium Chloride 0.9%) (11/08/21 18:22) Droperidol Inj (Ed Only) (Inapsine Inj ( (11/08/21 18:22) Fentanyl Inj (Sublimaze Injection) (11/08/21 18:42) Pantoprazole Injection (Protonix Injecti (11/08/21 18:42) Ct Abdomen/Pelvis W (11/08/21 18:47) Iohexol Injection (Omnipaque 350 Mg/Ml 1 (11/08/21 19:00) Received Contrast (Hold Metformin- Contr (11/08/21 19:00) Ns (Ivpb) (Sodium Chloride 0.9% Ivpb Bag (11/08/21 19:00) Metoclopramide Injection (Reglan Injecti (11/08/21 22:26) Rx-Dicyclomine Capsule (Rx-Bentyl Capsul (11/08/21 22:30) Fentanyl Inj (Sublimaze Injection) (11/08/21 22:26) Medications Given in ED Current Medications Medications Dose Ordered Sig/Scarlett Route Start Time Stop Time Status Last Admin Dose Admin Dicyclomine HCl 10 mg Q6H PRN PO 11/08/21 22:30 11/08/21 22:43 DC 11/08/21 22:34 10 MG Iohexol 100 ml ONCE ONCE IV 11/08/21 19:00 11/08/21 19:01 DC 11/08/21 19:23 100 ML Sodium Chloride 100 ml ONCE ONCE IV 11/08/21 19:00 11/08/21 19:01 DC 11/08/21 19:23 100 ML Vital Signs/I&O 11/08/21 11/08/21 17:25 22:40 Temp 36.1 Pulse 91 86 Resp 18 16 B/P (MAP) 173/101 (125) 142/94 Pulse Ox 98 O2 Delivery Room Air Room Air 11/09/21 00:00 Intake Total 1000 ml Balance 1000 ml Blood Pressure Mean: 125 Progress Progress Note #1: Progress Note Repeat labs to see if there is been a significant change. Order CT scan of the abdomen pelvis to look for signs of bowel obstruction or blockage. Give IV fluids to help with hydration. Use a dose of fentanyl to try and help with his pain. Droperidol to help with his nausea and vomiting since he has responded to that in the past Progress Note #2: Progress Note Labs appear stable without any acute significant change or worsening from yesterday. His pain nausea seems to be improved as he was resting in the room comfortably. His CT scan did not show any acute signs of abscess or fluid collection. He had some possible bowel wall thickening for colitis but he had no elevated white blood cell count or other findings that would indicate he had colitis. Will continue with symptomatic treatment by adding an Bentyl along with the Reglan or metoclopramide. Encouraged to follow-up through the clinic if he still has further issues. Diagnostic Imaging Diagonstic Imaging: CT Plain Films/CT/US/NM/MRI: abdomen, pelvis Comments [facility] [place], [place] NAME: LEONOR LAZARO [facility] REC#: [id number] PT STATUS: DEP ER : 1970 PHYSICIAN: ALYSIA GERARD MD ADMIT DATE: 11/08/21/ER FS Signed Date of Exam:11/08/21 CT ABDOMEN/PELVIS W CLINICAL INDICATION: Patient with right side abdominal pain x2 days with nausea. EXAM: Axial CT scan of the abdomen and pelvis performed with 100 mL of Omnipaque 350 IV contrast. Sagittal and coronal reformatted images are created. Auto Exposure Controls were utilized during the CT exam to meet ALARA standards for radiation dose reduction. COMPARISON: CT scan of the abdomen and pelvis dated 09/08/2021. FINDINGS: There is curvilinear opacities in both lung bases which may represent atelectasis versus scarring. There are small spurs involving both hips. The gallbladder surgically absent, as noted on the prior study as well. There is diffuse low-density seen throughout the liver which may be related to diffuse fatty infiltration of the liver. The liver, spleen, pancreas, and adrenal glands are unremarkable. Both kidneys are unremarkable with no hydronephrosis, stone, or mass. There is no intra-abdominal free air or free fluid. There is no intestinal obstruction. The appendix is unremarkable. There is no lymphadenopathy. Bladder is fluid-filled and unremarkable. Prostate gland shows no significant abnormality. There is wall thickening of the rectum, sigmoid colon, descending colon, and portions of the transverse colon which may be related to contraction versus colitis. There is diverticula involving the sigmoid and descending colon. The stomach and small bowel show no significant abnormality. The extra-abdominal and extrapelvic soft tissue structures are unremarkable. IMPRESSION: 1: There is interval development of wall thickening involving the rectum, sigmoid colon, descending colon, and portions of the transverse colon. These findings may be related to contraction, but colitis may also be considered. There is diverticulosis with no CT evidence of diverticulitis. 2: Remainder of this exam shows no acute abdominal or pelvic process. 3: There is diffuse fatty infiltration of the liver. 4: The remainder of this exam shows no significant interval change compared to the prior study of comparison. Dictated by: Dictated on workstation # [id number] Dict: 11/08/21 1939 Trans: 11/09/215 SHEN [id number] Interpreted by: RAD TINEO MD Electronically signed by: RAD TINEO MD 11/09/215 Reviewed: Reviewed by Me Departure Impression Primary Impression: Nausea and vomiting Qualified Codes: R11.14 - Bilious vomiting Additional Impressions: Recurrent right upper quadrant abdominal pain Cyclical vomiting Hyperglycemia Disposition: 01 HOME, SELF-CARE Condition: Stable Departure-Patient Inst. Decision time for Depature: 22:32 Referrals: ZULMA HERRERA APRN (PCP) Primary Care Physician [facility] (Family) Primary Care Physician Patient Instructions: Nausea and Vomiting, Adult ED, Abdominal Pain, Adult ED, High Blood Sugar, Adult ED, Diabetes and Diet Add. Discharge Instructions: Use the nausea medicine from tonight to help keep your stomach settle. Stop taking the Phenergan (Promethazine) while you are taking the Metoclopramide (Reglan) prescribed from tonight to help with nausea. Use the Bentyl or dicyclomine to help with abdominal pain and cramping as well as nausea. You can use the pain medicine for severe pain. Follow-up with the clinic for continued concerns. Try to keep sipping on fluids and staying hydrated. All discharge instructions reviewed with patient and/or family. Voiced understanding. Scripts Hydrocodone/Acetaminophen (Hydrocodone-Acetamin 5-325 mg) 1 Each Tablet 1 TAB PO Q4H PRN for PAIN-SEVERE (8-10) for 5 Days, #30 TAB 0 Refills Prov: ALYSIA GERARD MD 11/08/21 Dicyclomine HCl (Dicyclomine HCl) 20 Mg Tablet 20 MG PO Q6H PRN for abdominal cramping/pain for 10 Days, #40 TAB 0 Refills Prov: ALYSIA GERARD MD 11/08/21 Metoclopramide HCl (Metoclopramide HCl) 10 Mg Tablet 10 MG PO TID PRN for NAUSEA/VOMITING for 10 Days, #30 TAB 0 Refills Prov: ALYSIA GERARD MD 11/08/21 ALYSIA GERARD MD Nov 08, 2021 20:56
[2021-11-08] MEDS ORDERED: METOCLOPRAMIDE INJ 10 MG/2 ML (REGLAN) IVP STA (22:26)
[2021-11-08] MEDS ORDERED: RX-DICYCLOMINE 10 MG (BENTYL) CAP PPK#4 PO PRN (22:30)
[2021-11-08] MEDS ORDERED: DICY20TA PO ×2 (22:36→22:38)
[2021-11-08] MEDS ORDERED: ACHD5005 PO ×2 (22:36→22:38)
[2021-11-08] MEDS ORDERED: MTC10T PO ×2 (22:36→22:38)
[2021-11-08 22:40] VITALS: BP 142/94
== END 2021-11-08 22:42 | disposition home or self-care (01) ==
LOC: EDUNIT# 17:21 → ER FS 17:22
DX: R11.2 Nausea with vomiting, unspecified (principal); R10.11 Right upper quadrant pain; J44.9 Chronic obstructive pulmonary disease, unspecified; E11.65 Type 2 diabetes mellitus with hyperglycemia; I25.2 Old myocardial infarction; F17.210 Nicotine dependence, cigarettes, uncomplicated; Z79.4 Long term (current) use of insulin
CPT/HCPCS: 36415; 74177; 80053; 81000; 83605; 83690; 85025

== ENCOUNTER 2021-12-18 12:24 | Emergency (ER) | payer MEDICAID ==
[~2021-12-18] VITALS: Ht 193 cm; Wt 77.0 kg
[~2021-12-18 12:24] MED LIST changes: +DICY20TA PO; +MTC10T PO
[2021-12-18 12:33] VITALS: BP 136/78
[2021-12-18] MEDS ORDERED: NS IV 1000 ML 1,000 ML IV STA (12:38)
[2021-12-18] MEDS ORDERED: LORazepam INJ 2 MG/ML (ATIVAN) VIAL IVP STA (12:38)
[2021-12-18] MEDS ORDERED: diphenhydrAMINE 50 MG/ML INJ (BENADRYL) IVP STA (12:38)
[2021-12-18] MEDS ORDERED: PROCHLORPERAZINE 10 MG/2ML INJ (COMPAZINE) IV STA (12:38)
[2021-12-18] MEDS ORDERED: fentaNYL INJ 100 MCG/2 ML AMP IVP STA ×2 (12:38→13:46)
[2021-12-18] MEDS ORDERED: DROPERIDOL 5 MG/2 ML (INAPSINE) ED ONLY! IV STA (12:38)
[2021-12-18 12:45] LABS: BASOPHILS % (AUTO) 0 % (0-10); EOSINOPHILS # (AUTO) 0.1 10^3/uL (0.0-0.3); EOSINOPHILS % (AUTO) 1 % (0-10); HEMATOCRIT 46 % (40-54); HEMOGLOBIN 15.8 g/dL (13.3-17.7); LYMPHOCYTES # (AUTO) 2.4 X 10^3 (1.0-4.0); LYMPHOCYTES % (AUTO) 21 % (12-44); MEAN CORPUSCULAR HEMOGLOBIN 31 pg (25-34); MEAN CORPUSCULAR HGB CONC 35 g/dL (32-36); MEAN CORPUSCULAR VOLUME 90 fL (80-99); MEAN PLATELET VOLUME 9.7 fL (9.0-12.2); MONOCYTES # (AUTO) 0.7 X 10^3 (0.0-1.0); MONOCYTES % (AUTO) 6 % (0-12); NEUTROPHILS % (AUTO) 71 % (42-75); PLATELET COUNT 345 10^3/uL (130-400); WHITE BLOOD COUNT 11.3 10^3/uL (4.3-11.0)
--- NOTE | 2021-12-18 12:49 | ED General ---
General Chief Complaint: Abdominal/GI Problems Stated Complaint: ABD PAIN; N/V Source of Information: Patient History of Present Illness Date Seen by Provider: Dec 18, 2021 Time Seen by Provider: 12:26 Initial Comments 51-year-old male presenting with recurrent chronic abdominal pain with nausea, dry heaves, right-sided pain. He states that his only been passing gas and not having bowel movements. He has had a previous Cassie fundoplication and is not able to vomit but he has been having nausea. He felt like his symptoms had worsened since he recently started insulin back. He has chronic pain and follow s with Zulma Herrera in the [facility] clinic. He also used marijuana a few days ago and in his medical record it says he has had cyclical vomiting with marijuana causing his symptoms at times. He presents holding his right side and stating it feels like someone is squeezing his liver. He denies fever, chills, pain with urination, passing blood per rectum or mouth. He has had chronic issues with this pain and nausea for years but feels it has been worse in last 6 months and today his pain has been since this am. Severity: Severe Modifying Factors: worse with Eating, worse with Movement Associated Systoms: No Chest Pain, No Cough, No Diaphoresis, No Fever/Chills, No Headaches, No Loss of Appetite; Malaise; No Seizure, No Shortness of Air, No Syncope, No Weakness Allergies and Home Medications Allergies Coded Allergies: Penicillins (Unverified Adverse Reaction, Unknown, 07/22/19) Patient Home Medication List Home Medication List Reviewed: Yes Capsaicin (Capsaicin) 42.5 Gm Cream..g., 42.5 GM TP Q12H PRN for PAIN-SEVERE (8- 10) Prescribed by: SOUMYA CARRERO on 09/20/212146 Ciprofloxacin HCl (Ciprofloxacin HCl) 500 Mg Tablet, 500 MG PO BID Prescribed by: ALYSIA GERARD on 12/18/21 1447 Dicyclomine HCl (Dicyclomine HCl) 20 Mg Tablet, 20 MG PO Q6H PRN for abdominal cramping/pain Prescribed by: ALYSIA GERARD on 11/08/21 2238 Hydrocodone/Acetaminophen (Hydrocodone-Acetamin 5-325 mg) 1 Each Tablet, 1 TAB PO Q4H PRN for PAIN-MODERATE (5-7) Prescribed by: ABEL PECK on 05/31/21 2325 Hydrocodone/Acetaminophen (Hydrocodone-Acetamin 5-325 mg) 1 Each Tablet, 1 TAB PO Q4H PRN for PAIN-SEVERE (8-10) Prescribed by: ALYSIA GERARD on 12/18/21 1447 Insulin Determir (Levemir) 1,000 Units/10 Ml Soln, 14 UNITS SQ BID Prescribed by: Whitney Lange on 09/10/21 1613 Insulin Lispro (Insulin Lispro Kwikpen U-100) 100 Unit/1 Ml Insuln.pen, 5 UNIT SQ ACHS, (Reported) Entered as Reported by: Whitney Lange on 09/10/21 1632 Metoclopramide HCl (Reglan) 10 Mg Tablet, 10 MG PO TID Prescribed by: ALAINA OLEARY on 09/13/21 1037 Metronidazole (Metronidazole) 500 Mg Tablet, 500 MG PO BID Prescribed by: ALYSIA GERARD on 12/18/21 1447 Oxycodone HCl/Acetaminophen (Percocet 7.5-325 mg Tablet) 1 Each Tablet, 1 TAB PO Q6H PRN for PAIN-MODERATE (5-7) Prescribed by: PURVI DAWSON on 01/08/21 1533 Promethazine HCl (Promethazine Tablet) 25 Mg Tablet, 25 MG PO Q6H PRN for NAUSEA/VOMITING Prescribed by: ALYSIA GERARD on 12/18/21 1447 Discontinued Medications Metoclopramide HCl (Metoclopramide HCl) 10 Mg Tablet, 10 MG PO TID PRN for NAUSEA/VOMITING Prescribed by: ALYSIA GERARD on 11/08/21 2238 Review of Systems Review of Systems Constitutional: No chills, No fever; malaise EENTM: no symptoms reported Respiratory: no symptoms reported Cardiovascular: no symptoms reported Gastrointestinal: see HPI Genitourinary: No dysuria, No hematuria Musculoskeletal: no symptoms reported Skin: No rash Psychiatric/Neurological: Anxiety; Denies Headache Past Cipfwzr-Xicsfl-Vhbgwy Hx Patient Social History Tobacco Use?: Yes Immunizations Up To Date Tetanus Booster (TDap): Unknown First/Initial COVID19 Vaccinat: UNKNOWN DATE Second COVID19 Vaccination [place]: UNKNOWN DATE Third COVID19 Vaccination Date: 02/2021 Seasonal Allergies Seasonal Allergies: No Past Medical History Surgery/Hospitalization HX: Insulin dependent DM, Bipolar, Cassie fundoplication Surgeries: Yes (UGI, ? Heart Surgery per prior hx family, R lower leg lesion removed) Cardiac, Gallbladder Respiratory: Yes COPD Currently Using CPAP: No Currently Using BIPAP: No Cardiac: Yes (heart surgery at 16mo for hole in heart; [place] 4 months ago, Systolic CHF) Atrial Fibrillation, Cardiomyopathy, Heart Attack, Irregular Heartbeat Neurological: No Genitourinary: No Gastrointestinal: Yes (Gastritis, Duodenitis, frequent alcohol intake, Hep C) Hepatitis Musculoskeletal: Yes Fractures Endocrine: Yes (Refuses to monitor blood sugar and to use insulin) Diabetes, Insulin dep HEENT: No Cancer: No Psychosocial: Yes (polysubstance abuse ) Anxiety Integumentary: Yes (Hidradenitis Suppurative, frequent abscesses, necrotizing fasciitis) Blood Disorders: Yes (Hep C+) Adverse Reaction/Blood Tranf: No Family Medical History No Pertinent Family Hx Physical Exam Vital Signs Capillary Refill : Height, Weight, BMI Height: '" Weight: 192lbs. 4.0oz. [id number]; 22.00 BMI Method: General Appearance: Mild Distress HEENT: PERRL/EOMI, Pharynx Normal Neck: Full Range of Motion, Normal Inspection, Non Tender, Supple Respiratory: Chest Non Tender, Lungs Clear, Normal Breath Sounds Cardiovascular: Regular Rate, Rhythm, Normal Peripheral Pulses Gastrointestinal: Normal Bowel Sounds, No Pulsatile Mass, Non Tender, Soft Rectal: Deferred Extremity: Normal Capillary Refill, Normal Inspection, No Pedal Edema Neurologic/Psychiatric: Alert, Oriented x3 Skin: Normal Color, Warm/Dry Procedures/Interventions Date of ETT Placement: Jul 23, 2019 Time of ETT Placement: 05 Progress/Results/Core Measures Suspected Sepsis SIRS Temperature: Pulse: Respiratory Rate: Laboratory Tests 12/18/21 12:37: White Blood Count 11.3H Blood Pressure / Mean: Laboratory Tests 12/18/21 12:37: Creatinine 0.69, Platelet Count 345, Total Bilirubin 0.3 Results/Orders Lab Results Laboratory Tests Test 12/18/21 12:30 12/18/21 12:37 12/18/21 12:39 Range/Units Urine Color YELLOW Urine Clarity CLEAR Urine pH 6.0 5-9 Urine Specific [place] 1.020 1.016-1.022 Urine Protein 2+ H NEGATIVE Urine Glucose (UA) 3+ H NEGATIVE Urine Ketones NEGATIVE NEGATIVE Urine Nitrite NEGATIVE NEGATIVE Urine Bilirubin NEGATIVE NEGATIVE Urine Urobilinogen 0.2 < = 1.0 MG/DL Urine Leukocyte Esterase NEGATIVE NEGATIVE Urine RBC (Auto) 1+ H NEGATIVE Urine RBC 5-10 H /HPF Urine WBC NONE /HPF Urine Crystals NONE /LPF Urine Leucine Crystals /LPF Urine Bacteria NEGATIVE /HPF Urine Casts NONE /LPF Urine Mucus NEGATIVE /LPF Urine Culture Indicated NO Urine Opiates Screen NEGATIVE NEGATIVE Urine Oxycodone Screen NEGATIVE NEGATIVE Urine Methadone Screen NEGATIVE NEGATIVE Urine Propoxyphene Screen NEGATIVE NEGATIVE Urine Barbiturates Screen NEGATIVE NEGATIVE Ur Tricyclic Antidepressants Screen NEGATIVE NEGATIVE Urine Phencyclidine Screen NEGATIVE NEGATIVE Urine Amphetamines Screen NEGATIVE NEGATIVE Urine Methamphetamines Screen NEGATIVE NEGATIVE Urine Benzodiazepines Screen NEGATIVE NEGATIVE Urine Cocaine Screen NEGATIVE NEGATIVE Urine Cannabinoids Screen POSITIVE H NEGATIVE White Blood Count 11.3 H 4.3-11.0 10^3/uL Red Blood Count 5.10 4.30-5.52 10^6/uL Hemoglobin 15.8 13.3-17.7 g/dL Hematocrit 46 40-54 % Mean Corpuscular Volume 90 80-99 fL Mean Corpuscular Hemoglobin 31 25-34 pg Mean Corpuscular Hemoglobin Concent 35 32-36 g/dL Red Cell Distribution Width 12.0 10.0-14.5 % Platelet Count 345 130-400 10^3/uL Mean Platelet Volume 9.7 9.0-12.2 fL Immature Granulocyte % (Auto) 0 % Neutrophils (%) (Auto) 71 42-75 % Lymphocytes (%) (Auto) 21 12-44 % Monocytes (%) (Auto) 6 0-12 % Eosinophils (%) (Auto) 1 0-10 % Basophils (%) (Auto) 0 0-10 % Neutrophils # (Auto) 8.0 H 1.8-7.8 X 10^3 Lymphocytes # (Auto) 2.4 1.0-4.0 X 10^3 Monocytes # (Auto) 0.7 0.0-1.0 X 10^3 Eosinophils # (Auto) 0.1 0.0-0.3 10^3/uL Basophils # (Auto) 0.0 0.0-0.1 10^3/uL Immature Granulocyte # (Auto) 0.0 0.0-0.1 10^3/uL Sodium Level 135 135-145 MMOL/L Potassium Level 4.8 3.6-5.0 MMOL/L Chloride Level 98 98-107 MMOL/L Carbon Dioxide Level 25 21-32 MMOL/L Anion Gap 12 5-14 MMOL/L Blood Urea Nitrogen 18 7-18 MG/DL Creatinine 0.69 0.60-1.30 MG/DL Estimat Glomerular Filtration Rate 112 BUN/Creatinine Ratio 26 Glucose Level 377 H 70-105 MG/DL Calcium Level 9.5 8.5-10.1 MG/DL Corrected Calcium 9.5 8.5-10.1 MG/DL Total Bilirubin 0.3 0.1-1.0 MG/DL Aspartate Amino Transf (AST/SGOT) 26 5-34 U/L Alanine Aminotransferase (ALT/SGPT) 26 0-55 U/L Alkaline Phosphatase 105 40-136 U/L Total Protein 7.4 6.4-8.2 GM/DL Albumin 4.0 3.2-4.5 GM/DL Lipase 95 H 8-78 U/L Glucometer 351 H 70-110 MG/DL My Orders Orders - ALYSIA GERARD MD Comprehensive Metabolic Panel (12/18/21 12:31) Lipase (12/18/21 12:31) Ua Culture If Indicated (12/18/21 12:31) Ed Iv/Invasive Line Start (12/18/21 12:31) Cbc With Automated Diff (12/18/21 12:31) Drug Screen Stat (Urine) (12/18/21 12:31) Droperidol Inj (Ed Only) (Inapsine Inj ( (12/18/21 12:38) Ns Iv 1000 Ml (Sodium Chloride 0.9%) (12/18/21 12:38) Fentanyl Inj (Sublimaze Injection) (12/18/21 12:38) Diphenhydramine Injection (Benadryl Inje (12/18/21 12:38) Prochlorperazine Injection (Compazine In (12/18/21 12:38) Lorazepam Injection (Ativan Injection) (12/18/21 12:38) Ct Abdomen/Pelvis W (12/18/21 12:43) Iohexol Injection (Omnipaque 350 Mg/Ml 1 (12/18/21 13:45) Received Contrast (Hold Metformin- Contr (12/18/21 13:45) Sodium Chloride Flush (Catheter Flush Sy (12/18/21 13:45) Ns (Ivpb) (Sodium Chloride 0.9% Ivpb Bag (12/18/21 13:45) Pantoprazole Injection (Protonix Injecti (12/18/21 13:46) Fentanyl Inj (Sublimaze Injection) (12/18/21 13:46) Insulin (Regular) Human (Novolin R (Per (12/18/21 13:46) Medications Given in ED Current Medications Medications Dose Ordered Sig/Scarlett Route Start Time Stop Time Status Last Admin Dose Admin Iohexol 100 ml ONCE ONCE IV 12/18/21 13:45 12/18/21 13:46 DC 12/18/21 13:41 100 ML Sodium Chloride 10 ml NEEDED PRN IV 12/18/21 13:45 12/18/21 13:41 10 ML Sodium Chloride 100 ml ONCE ONCE IV 12/18/21 13:45 12/18/21 13:46 DC 12/18/21 13:40 80 ML Vital Signs/I&O Capillary Refill : Point of Care Testing Finger Stick Blood Glucose: 351 Blood Glucose Action Taken: NOTIFIED PHYSICIAN Progress Note #1: Progress Note Check labs and urine as well as urine drug screen. Give IV fluids 1 L normal saline for hydration. Compazine and Benadryl for nausea. Fentanyl for pain. Pantoprazole for gastritis. CT scan of the abdomen and pelvis to evaluate for possible ileus/small bowel obstruction/abscess her focal fluid collection. Progress Note #2: Progress Note Labs all appear stable with no acute significant abnormality other than his white blood cell count is at the upper limit of normal at 11.3. His chemistry has the glucose 371. His lipase was slightly elevated at 95. His urine does show 3+ glucose and 2+ protein with a specific gravity of 1.020. He has THC or marijuana showing up in his urine drug screen. When he was being wheeled to radiology he stated that he did not feel that much better after his medications have been given. Will evaluate his CT scan and try some additional medication. Progress Note #3: Progress Note CT scan shows diffuse patches of mural wall thickening in the colon, most significant in the sigmoid colon. This area was not tender at all on exam. He also has areas of bibasilar appearing infiltrate in lungs but has not been coughing or having shortness of breath. Will discuss with pt taking antibiotic for possible colitis and possible pneumonia. treat pain and nausea. follow up with clinic. see surgery as outpt for scope to look at colon. Progress Note #4: Progress Note Pain controlled and much improved. He was resting comfortably in room with no distress. No dry heaves or retching here in the ED pt reports he has better control of nausea witih phenergan so will send that to pharmacy. Sent for refill of a few hydrocodone for severe pain, cipro and flagyl for colitis. Counseled on follow up and return precautions. Given information for Dr. Carolina as possible follow up for outpt colonoscopy about colitis Diagnostic Imaging Diagonstic Imaging: CT Plain Films/CT/US/NM/MRI: abdomen, pelvis Comments NAME: [facility] REC#: [id number] PT STATUS: REG ER : 1970 PHYSICIAN: ALYSIA GERARD MD ADMIT DATE: 12/18/21/ER FS Draft Date of Exam:12/18/21 CT ABDOMEN/PELVIS W PROCEDURE: CT abdomen and pelvis with contrast. TECHNIQUE: Multiple contiguous axial images were obtained through the abdomen and pelvis after administration of intravenous contrast. Auto Exposure Controls were utilized during the CT exam to meet ALARA standards for radiation dose reduction. All CT scans use one or more of the following dose optimizing techniques: Automated exposure control, MA and/or KvP adjustment based on patient size and exam type or iterative reconstruction. INDICATION: Nausea, abdominal pain. COMPARISON: 11/08/2021. FINDINGS: New left greater than right bibasilar interstitial and ground-glass opacities are seen within the lung bases. Cholecystectomy. Fatty infiltration of the liver is again noted. The liver is otherwise unremarkable. The spleen is unremarkable. The adrenal glands are unremarkable. The pancreas is unremarkable. The bilateral kidneys are unremarkable besides partial duplication of the right renal collecting system. No hydronephrosis. Mild scattered vascular calcifications without aneurysmal dilatation of the abdominal aorta. The appendix is unremarkable. Mild mural thickening of the urinary bladder. The prostate gland is mildly enlarged. Scattered regions of mural thickening are identified in the colon, by far greatest within the sigmoid colon. No focal adjacent inflammatory stranding. No bowel obstruction or pneumatosis. No significant adenopathy, free air, or free fluid within the abdomen or pelvis. No acute osseous abnormality. IMPRESSION: Significant mural thickening involving the sigmoid colon without adjacent inflammatory stranding. This is felt to relate to colitis versus poor distention. No evidence of bowel obstruction. New left greater than right pulmonary opacities, concerning for an infectious infiltrate. The appendix is unremarkable. Additional findings as above. Dictated on workstation # [id number] Dict: 12/18/21 1339 Trans: 12/18/21 1355 [id number] Interpreted by: NEELAM RUGGIERO MD Electronically signed by: Reviewed: Reviewed by Me Departure Impression Primary Impression: Abdominal pain, chronic, right lower quadrant Additional Impressions: Abdominal pain, chronic, right upper quadrant Colitis Disposition: 01 HOME, SELF-CARE Condition: Stable Departure-Patient Inst. Decision time for Depature: 14:47 Referrals: ZULMA HERRERA APRN (PCP) Primary Care Physician [facility] (Family) Primary Care Physician SHENG CAROLINA DO Patient Instructions: Colitis (DC), Nausea and Vomiting, Adult ED, Abdominal Pain, Adult ED Add. Discharge Instructions: Take antibiotic in case the inflammation of colon is from a bacteria. If there is a start of infection in the lungs as well the antibiotic will help cover that. Use the nausea medicine to help keep your stomach settled. Take the pain medicine to help control pain while the antibiotics start working to treat inflammation Follow up with clinic and you should see GI or surgery for follow up and colonoscopy once your pain is settled down. Dr. Carolina is the surgeon front office administrator today and you could call him about follow up for colonoscopy. All discharge instructions reviewed with patient and/or family. Voiced understanding. Scripts Metronidazole (Metronidazole) 500 Mg Tablet 500 MG PO BID for colitis for 7 Days, #14 TAB 0 Refills Prov: ALYSIA GERARD MD 12/18/21 Ciprofloxacin HCl (Ciprofloxacin HCl) 500 Mg Tablet 500 MG PO BID for colitis for 7 Days, #14 TAB 0 Refills Prov: ALYSIA GERARD MD 12/18/21 Promethazine HCl (Promethazine Tablet) 25 Mg Tablet 25 MG PO Q6H PRN for NAUSEA/VOMITING for 5 Days, #20 TAB 0 Refills Prov: ALYSIA GERARD MD 12/18/21 Hydrocodone/Acetaminophen (Hydrocodone-Acetamin 5-325 mg) 1 Each Tablet 1 TAB PO Q4H PRN for PAIN-SEVERE (8-10) for 5 Days, #30 TAB 0 Refills Prov: ALYSIA GERARD MD 12/18/21 ALYSIA GERARD MD Dec 18, 2021 12:49
[2021-12-18 12:50] LABS: BACTERIA,URINE NEGATIVE /HPF; BILIRUBIN,URINE NEGATIVE (NEGATIVE); CLARITY,URINE CLEAR; COLOR,URINE YELLOW; GLUCOSE, URINE (UA) 3+ (NEGATIVE); KETONES,URINE NEGATIVE (NEGATIVE); LEUKOCYTE ESTERASE ,URINE NEGATIVE (NEGATIVE); NITRITE,URINE NEGATIVE (NEGATIVE); PROTEIN,URINE 2+ (NEGATIVE)
[2021-12-18 12:57] LABS: AMPHETAMINE SCREEN, URINE NEGATIVE (NEGATIVE); BARBITURATE SCREEN URINE NEGATIVE (NEGATIVE); BENZODIAZEPINES SCREEN URINE NEGATIVE (NEGATIVE); CANNABINOID SCREEN, URINE POSITIVE (NEGATIVE); COCAINE SCREEN URINE NEGATIVE (NEGATIVE); METHADONE STAT NEGATIVE (NEGATIVE); METHAMPHETAMINE SCREEN URINE S NEGATIVE (NEGATIVE); OPIATE SCREEN URINE NEGATIVE (NEGATIVE); OXYCODONE STAT NEGATIVE (NEGATIVE); PROPOXYPHENE STAT NEGATIVE (NEGATIVE); TRICYCLIC ANTIDEPRESSANTS SCRE NEGATIVE (NEGATIVE)
[2021-12-18 13:05] LABS: BILIRUBIN,TOTAL 0.3 MG/DL (0.1-1.0); CALCIUM 9.5 MG/DL (8.5-10.1); CREATININE SERUM 0.69 MG/DL (0.60-1.30); POTASSIUM 4.8 MMOL/L (3.6-5.0); TOTAL PROTEIN 7.4 GM/DL (6.4-8.2)
[2021-12-18] MEDS ORDERED: NS 100 ML (IVPB) BAG IV ONE (13:45)
[2021-12-18] MEDS ORDERED: IOHEXOL 350 MG/ML 150 ML (OMNIPAQUE 350) VIAL IV ONE (13:45)
[2021-12-18] MEDS ORDERED: HOLD METFORMIN - RECEIVED CONTRAST 20 ML VIAL IV SCH (13:45)
[2021-12-18] MEDS ORDERED: CATHETER FLUSH 10 ML SYR IV PRN (13:45)
[2021-12-18] MEDS ORDERED: inSUlin (REGULAR) HUMAN 1 UNIT/0.01 ML (CHARGE PER UNIT) SC STA (13:46)
[2021-12-18] MEDS ORDERED: PANTOPRAZOLE 40 MG (PROTONIX) VIAL IV STA (13:46)
--- NOTE | 2021-12-18 13:55 | Diagnostic Imaging Report ---
PROCEDURE: CT abdomen and pelvis with contrast. TECHNIQUE: Multiple contiguous axial images were obtained through the abdomen and pelvis after administration of intravenous contrast. Auto Exposure Controls were utilized during the CT exam to meet ALARA standards for radiation dose reduction. All CT scans use one or more of the following dose optimizing techniques: Automated exposure control, MA and/or KvP adjustment based on patient size and exam type or iterative reconstruction. INDICATION: Nausea, abdominal pain. COMPARISON: 11/08/2021. FINDINGS: New left greater than right bibasilar interstitial and ground-glass opacities are seen within the lung bases. Cholecystectomy. Fatty infiltration of the liver is again noted. The liver is otherwise unremarkable. The spleen is unremarkable. The adrenal glands are unremarkable. The pancreas is unremarkable. The bilateral kidneys are unremarkable besides partial duplication of the right renal collecting system. No hydronephrosis. Mild scattered vascular calcifications without aneurysmal dilatation of the abdominal aorta. The appendix is unremarkable. Mild mural thickening of the urinary bladder. The prostate gland is mildly enlarged. Scattered regions of mural thickening are identified in the colon, by far greatest within the sigmoid colon. No focal adjacent inflammatory stranding. No bowel obstruction or pneumatosis. No significant adenopathy, free air, or free fluid within the abdomen or pelvis. No acute osseous abnormality. IMPRESSION: Significant mural thickening involving the sigmoid colon without adjacent inflammatory stranding. This is felt to relate to colitis versus poor distention. No evidence of bowel obstruction. New left greater than right pulmonary opacities, concerning for an infectious infiltrate. The appendix is unremarkable. Additional findings as above. Dictated by: Dictated on workstation # [id number]
[2021-12-18] MEDS ORDERED: METR-145 PO (14:47)
[2021-12-18] MEDS ORDERED: PROM25TA14 PO (14:47)
[2021-12-18] MEDS ORDERED: ACHD5005 PO (14:47)
[2021-12-18] MEDS ORDERED: CIPR500T5 PO (14:47)
== END 2021-12-18 14:50 | disposition home or self-care (01) ==
LOC: EDUNIT# 12:24 → ER FS 12:25
DX: K52.9 Noninfective gastroenteritis and colitis, unspecified (principal); G89.29 Other chronic pain; E11.9 Type 2 diabetes mellitus without complications; I50.22 Chronic systolic (congestive) heart failure; J44.9 Chronic obstructive pulmonary disease, unspecified; Z79.4 Long term (current) use of insulin; Z79.891 Long term (current) use of opiate analgesic; Z88.0 Allergy status to penicillin
CPT/HCPCS: 36415; 74177; 80053; 80306; 81000; 82947; 83690; 85025

== ENCOUNTER 2021-12-23 13:26 | Emergency (ER) | payer MEDICAID ==
[~2021-12-23] VITALS: Ht 193 cm; Wt 81.4 kg
[~2021-12-23 13:26] MED LIST changes: +CIPR500T5 PO; +METR-145 PO
[2021-12-23] MEDS ORDERED: inSUlin (REGULAR) HUMAN 1 UNIT/0.01 ML (CHARGE PER UNIT) IV STA (13:49)
[2021-12-23] MEDS ORDERED: NS IV 1000 ML 1,000 ML IV SCH (14:00)
--- NOTE | 2021-12-23 14:06 | Diagnostic Imaging Report ---
INDICATION: Diabetic ketoacidosis, upper abdominal pain, nausea, vomiting.. TECHNIQUE: Single view chest 1:59 PM. CORRELATION STUDY: 10/16/2020 FINDINGS: The heart size, mediastinal configuration and pulmonary vascularity are within normal limits. Sternal wires. The lungs are somewhat hyperinflated but overall clear with no consolidating infiltrate. There is no significant effusion or pneumothorax. IMPRESSION: 1. Negative for acute abnormality of the chest. Dictated by: Dictated on workstation # [id number]
[2021-12-23 14:10] LABS: CLARITY,URINE CLEAR; COLOR,URINE YELLOW; PROTEIN,URINE 2+ (NEGATIVE)
[2021-12-23 14:11] LABS: BACTERIA,URINE NEGATIVE /HPF; BILIRUBIN,URINE NEGATIVE (NEGATIVE); GLUCOSE, URINE (UA) 3+ (NEGATIVE); KETONES,URINE NEGATIVE (NEGATIVE); LEUKOCYTE ESTERASE ,URINE NEGATIVE (NEGATIVE); NITRITE,URINE NEGATIVE (NEGATIVE); RBC,URINE 0-2 /HPF; SQUAMOUS EPITHELIAL CELL,UR RARE /HPF
[2021-12-23 14:19] LABS: AMPHETAMINE SCREEN, URINE NEGATIVE (NEGATIVE); BARBITURATE SCREEN URINE NEGATIVE (NEGATIVE); BENZODIAZEPINES SCREEN URINE NEGATIVE (NEGATIVE); CANNABINOID SCREEN, URINE POSITIVE (NEGATIVE); COCAINE SCREEN URINE NEGATIVE (NEGATIVE); METHADONE STAT NEGATIVE (NEGATIVE); METHAMPHETAMINE SCREEN URINE S NEGATIVE (NEGATIVE); OPIATE SCREEN URINE NEGATIVE (NEGATIVE); OXYCODONE STAT NEGATIVE (NEGATIVE); PROPOXYPHENE STAT NEGATIVE (NEGATIVE); TRICYCLIC ANTIDEPRESSANTS SCRE NEGATIVE (NEGATIVE)
[2021-12-23 14:21] LABS: HEMATOCRIT 45 % (40-54); HEMOGLOBIN 15.3 g/dL (13.3-17.7); LYMPHOCYTES % (AUTO) 21 % (12-44); MEAN CORPUSCULAR HEMOGLOBIN 31 pg (25-34); MEAN CORPUSCULAR HGB CONC 34 g/dL (32-36); MEAN CORPUSCULAR VOLUME 91 fL (80-99); MEAN PLATELET VOLUME 10.1 fL (9.0-12.2); MONOCYTES % (AUTO) 8 % (0-12); NEUTROPHILS % (AUTO) 70 % (42-75); PLATELET COUNT 279 10^3/uL (130-400); WHITE BLOOD COUNT 10.4 10^3/uL (4.3-11.0)
[2021-12-23 14:22] LABS: BASOPHILS % (AUTO) 0 % (0-10); EOSINOPHILS # (AUTO) 0.2 10^3/uL (0.0-0.3); EOSINOPHILS % (AUTO) 1 % (0-10); LYMPHOCYTES # (AUTO) 2.1 X 10^3 (1.0-4.0); MONOCYTES # (AUTO) 0.8 X 10^3 (0.0-1.0); NEUTROPHILS # (AUTO) 7.3 X 10^3 (1.8-7.8)
[2021-12-23 14:42] LABS: ALANINE AMINOTRANSFERASE 25 U/L (0-55); ALBUMIN 3.9 GM/DL (3.2-4.5); ALKALINE PHOSPHATASE 86 U/L (40-136); BILIRUBIN,TOTAL 0.3 MG/DL (0.1-1.0); BUN/CREATININE RATIO 21; CALCIUM 9.3 MG/DL (8.5-10.1); CARBON DIOXIDE 25 MMOL/L (21-32); CHLORIDE 99 MMOL/L (98-107); CREATININE SERUM 0.68 MG/DL (0.60-1.30); GFR ESTIMATED 113; GLUCOSE 344 MG/DL (70-105); MAGNESIUM 1.8 MG/DL (1.6-2.4); POTASSIUM 4.5 MMOL/L (3.6-5.0); SODIUM 135 MMOL/L (135-145); TOTAL PROTEIN 6.9 GM/DL (6.4-8.2)
[2021-12-23 14:43] LABS: LIPASE 36 U/L (8-78)
--- NOTE | 2021-12-23 14:59 | ED General ---
General Chief Complaint: Glucose Problems Stated Complaint: ABD PAIN,NAUSEA,HIGH BLOOD SUGAR Nursing Triage Note: PT AMBULATE TO ROOM FS OF WITH C/O HYPERGLYCEMIA, ABD PAIN, AND NAUSEA. PT REPORTS BEING SEEN BY URGENT CARE TODAY AND TOLD TO COME TO ED. History of Present Illness Date Seen by Provider: Dec 23, 2021 Time Seen by Provider: 13:35 Initial Comments 51 yr M with PMH of DM, active smoker, is here with c/o elevated blood sugar at home of 450. Pt didn't feel well overall with generalized body pain, and he took his Lantus 14u in the morning ( Pt takes Lantus 14u BID and Aspart 5U TID) , but he did not take his Aspart and came into the ER instead. Denies chest pain, SOB, dysuria, fever, nausea, vomiting, diarrhea, recent illness. Allergies and Home Medications Allergies Coded Allergies: Penicillins (Unverified Adverse Reaction, Unknown, 07/22/19) Patient Home Medication List Home Medication List Reviewed: Yes Capsaicin (Capsaicin) 42.5 Gm Cream..g., 42.5 GM TP Q12H PRN for PAIN-SEVERE (8- 10) Prescribed by: SOUMYA CARRERO on 09/20/21 214 Ciprofloxacin HCl (Ciprofloxacin HCl) 500 Mg Tablet, 500 MG PO BID Prescribed by: ALYSIA GERARD on 12/18/21 1447 Dicyclomine HCl (Dicyclomine HCl) 20 Mg Tablet, 20 MG PO Q6H PRN for abdominal cramping/pain Prescribed by: ALYSIA GERARD on 11/08/21 2238 Hydrocodone/Acetaminophen (Hydrocodone-Acetamin 5-325 mg) 1 Each Tablet, 1 TAB PO Q4H PRN for PAIN-MODERATE (5-7) Prescribed by: ABEL PECK on 05/31/21 2325 Hydrocodone/Acetaminophen (Hydrocodone-Acetamin 5-325 mg) 1 Each Tablet, 1 TAB PO Q4H PRN for PAIN-SEVERE (8-10) Prescribed by: ALYSIA GERARD on 12/18/21 1447 Insulin Determir (Levemir) 1,000 Units/10 Ml Soln, 14 UNITS SQ BID Prescribed by: Whitney Lange on 09/10/21 1613 Insulin Lispro (Insulin Lispro Kwikpen U-100) 100 Unit/1 Ml Insuln.pen, 5 UNIT SQ ACHS, (Reported) Entered as Reported by: Whitney Lange on 09/10/21 1632 Metoclopramide HCl (Reglan) 10 Mg Tablet, 10 MG PO TID Prescribed by: ALAINA OLEARY on 09/13/21 1037 Metronidazole (Metronidazole) 500 Mg Tablet, 500 MG PO BID Prescribed by: ALYSIA GERARD on 12/18/21 1447 Oxycodone HCl/Acetaminophen (Percocet 7.5-325 mg Tablet) 1 Each Tablet, 1 TAB PO Q6H PRN for PAIN-MODERATE (5-7) Prescribed by: PURVI DAWSON on 01/08/21 1533 Promethazine HCl (Promethazine Tablet) 25 Mg Tablet, 25 MG PO Q6H PRN for NAUSEA/VOMITING Prescribed by: ALYSIA GERARD on 12/18/21 1447 Discontinued Medications Metoclopramide HCl (Metoclopramide HCl) 10 Mg Tablet, 10 MG PO TID PRN for NAUSEA/VOMITING Prescribed by: ALYSIA GERARD on 11/08/21 2238 Review of Systems Review of Systems Constitutional: other (not feeling well) EENTM: no symptoms reported Respiratory: no symptoms reported Cardiovascular: no symptoms reported Gastrointestinal: no symptoms reported Genitourinary: no symptoms reported Musculoskeletal: other (generalized body aches) Skin: no symptoms reported Psychiatric/Neurological: No Symptoms Reported Hematologic/Lymphatic: No Symptoms Reported Immunological/Allergic: no symptoms reported Past Msnvqtv-Ojwamb-Tpnkvf Hx Patient Social History Tobacco Use?: Yes Tobacco type used: Cigarettes Smoking Status: Current Everyday Smoker Smokeless Tobacco Frequency: Never a User Use of E-Cig and/or Vaping dev: No Use of E-Cig and/or Vaping Jewel: Never a User Substance use?: Yes Substance type: Marijuana Substance frequency: Daily Alcohol Use?: No Pt feels they are or have been: No Immunizations Up To Date Tetanus Booster (TDap): Unknown First/Initial COVID19 Vaccinat: UNKNOWN DATE Second COVID19 Vaccination [place]: UNKNOWN DATE Third COVID19 Vaccination Date: 09/2021 COVID19 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 Heart Surgery per prior hx family, R lower leg lesion removed) Cardiac, Gallbladder Respiratory: Yes COPD Currently Using CPAP: No Currently Using BIPAP: No Cardiac: Yes (heart surgery at 16mo for hole in heart; [place] 4 months ago, Systolic CHF) Atrial Fibrillation, Cardiomyopathy, Heart Attack, Irregular Heartbeat Neurological: No Genitourinary: No Gastrointestinal: Yes (Gastritis, Duodenitis, frequent alcohol intake, Hep C) Hepatitis Musculoskeletal: Yes Fractures Endocrine: Yes (Refuses to monitor blood sugar and to use insulin) Diabetes, Insulin dep HEENT: No Cancer: No Psychosocial: Yes (polysubstance abuse ) Anxiety Integumentary: Yes (Hidradenitis Suppurative, frequent abscesses, necrotizing fasciitis) Blood Disorders: Yes (Hep C+) Adverse Reaction/Blood Tranf: No Family Medical History No Pertinent Family Hx Physical Exam Vital Signs Vital Signs - First Documented 12/23/21 13:30 Temp 36.2 Pulse 85 Resp 17 B/P (MAP) 160/90 (113) O2 Delivery Room Air Capillary Refill : Less Than 3 Seconds Height, Weight, BMI Height: '" Weight: 192lbs. 4.0oz. [id number]; 21.00 BMI Method: General Appearance: No Apparent Distress HEENT: PERRL/EOMI, Normal ENT Inspection Neck: Full Range of Motion, Normal Inspection, Non Tender, Supple Respiratory: Chest Non Tender, Lungs Clear, Normal Breath Sounds, No Accessory Muscle Use Cardiovascular: Regular Rate, Rhythm, No Edema Gastrointestinal: Normal Bowel Sounds, Non Tender, Soft Back: No CVA Tenderness Neurologic/Psychiatric: Alert, Oriented x3, No Motor/Sensory Deficits Skin: Normal Color Lymphatic: No Adenopathy Procedures/Interventions Date of ETT Placement: Jul 23, 2019 Time of ETT Placement: 545 Progress/Results/Core Measures Suspected Sepsis SIRS Temperature: Pulse: 85 Respiratory Rate: 17 Laboratory Tests 12/23/21 14:12: White Blood Count 10.4 Blood Pressure 160 /90 Mean: 113 Laboratory Tests 12/23/21 14:12: Creatinine 0.68, Platelet Count 279, Total Bilirubin 0.3 Results/Orders Lab Results Laboratory Tests Test 12/23/21 13:30 12/23/21 13:45 12/23/21 14:12 12/23/21 14:44 Range/Units Urine Color YELLOW Urine Clarity CLEAR Urine pH 6.0 5-9 Urine Specific [place] 1.020 1.016-1.022 Urine Protein 2+ H NEGATIVE Urine Glucose (UA) 3+ H NEGATIVE Urine Ketones NEGATIVE NEGATIVE Urine Nitrite NEGATIVE NEGATIVE Urine Bilirubin NEGATIVE NEGATIVE Urine Urobilinogen 0.2 < = 1.0 MG/DL Urine Leukocyte Esterase NEGATIVE NEGATIVE Urine RBC (Auto) 1+ H NEGATIVE Urine RBC 0-2 /HPF Urine WBC NONE /HPF Urine Squamous Epithelial Cells RARE /HPF Urine Crystals NONE /LPF Urine Bacteria NEGATIVE /HPF Urine Casts NONE /LPF Urine Mucus NEGATIVE /LPF Urine Culture Indicated NO Urine Opiates Screen NEGATIVE NEGATIVE Urine Oxycodone Screen NEGATIVE NEGATIVE Urine Methadone Screen NEGATIVE NEGATIVE Urine Propoxyphene Screen NEGATIVE NEGATIVE Urine Barbiturates Screen NEGATIVE NEGATIVE Ur Tricyclic Antidepressants Screen NEGATIVE NEGATIVE Urine Phencyclidine Screen NEGATIVE NEGATIVE Urine Amphetamines Screen NEGATIVE NEGATIVE Urine Methamphetamines Screen NEGATIVE NEGATIVE Urine Benzodiazepines Screen NEGATIVE NEGATIVE Urine Cocaine Screen NEGATIVE NEGATIVE Urine Cannabinoids Screen POSITIVE H NEGATIVE Glucometer 337 H 196 H 70-110 MG/DL White Blood Count 10.4 4.3-11.0 10^3/uL Red Blood Count 4.88 4.30-5.52 10^6/uL Hemoglobin 15.3 13.3-17.7 g/dL Hematocrit 45 40-54 % Mean Corpuscular Volume 91 80-99 fL Mean Corpuscular Hemoglobin 31 25-34 pg Mean Corpuscular Hemoglobin Concent 34 32-36 g/dL Red Cell Distribution Width 12.6 10.0-14.5 % Platelet Count 279 130-400 10^3/uL Mean Platelet Volume 10.1 9.0-12.2 fL Neutrophils (%) (Auto) 70 42-75 % Lymphocytes (%) (Auto) 21 12-44 % Monocytes (%) (Auto) 8 0-12 % Eosinophils (%) (Auto) 1 0-10 % Basophils (%) (Auto) 0 0-10 % Neutrophils # (Auto) 7.3 1.8-7.8 X 10^3 Lymphocytes # (Auto) 2.1 1.0-4.0 X 10^3 Monocytes # (Auto) 0.8 0.0-1.0 X 10^3 Eosinophils # (Auto) 0.2 0.0-0.3 10^3/uL Basophils # (Auto) 0.0 0.0-0.1 10^3/uL Sodium Level 135 135-145 MMOL/L Potassium Level 4.5 3.6-5.0 MMOL/L Chloride Level 99 98-107 MMOL/L Carbon Dioxide Level 25 21-32 MMOL/L Anion Gap 11 5-14 MMOL/L Blood Urea Nitrogen 14 7-18 MG/DL Creatinine 0.68 0.60-1.30 MG/DL Estimat Glomerular Filtration Rate 113 BUN/Creatinine Ratio 21 Glucose Level 344 H 70-105 MG/DL Calcium Level 9.3 8.5-10.1 MG/DL Corrected Calcium 9.4 8.5-10.1 MG/DL Magnesium Level 1.8 1.6-2.4 MG/DL Total Bilirubin 0.3 0.1-1.0 MG/DL Aspartate Amino Transf (AST/SGOT) 24 5-34 U/L Alanine Aminotransferase (ALT/SGPT) 25 0-55 U/L Alkaline Phosphatase 86 40-136 U/L Total Protein 6.9 6.4-8.2 GM/DL Albumin 3.9 3.2-4.5 GM/DL Lipase 36 8-78 U/L Serum Alcohol < 10 <10 MG/DL My Orders Orders - BARBARA GUADARRAMA MD Ed Iv/Invasive Line Start (12/23/21 13:49) Ns Iv 1000 Ml (Sodium Chloride 0.9%) (12/23/21 14:00) Insulin (Regular) Human (Novolin R (Per (12/23/21 13:49) Cbc With Automated Diff (12/23/21 13:52) Comprehensive Metabolic Panel (12/23/21 13:52) Magnesium (12/23/21 13:52) Urinalysis (12/23/21 13:52) Drug Screen Stat (Urine) (12/23/21 13:52) Alcohol (12/23/21 13:52) Chest 1 View Ap/Pa Only (12/23/21 13:52) Lipase (12/23/21 13:55) Ketorolac Injection (Toradol Injection) (12/23/21 15:15) Medications Given in ED Current Medications Medications Dose Ordered Sig/Scarlett Route Start Time Stop Time Status Last Admin Dose Admin Ketorolac Tromethamine 15 mg ONCE ONCE IVP 12/23/21 15:15 12/23/21 15:16 12/23/21 15:08 15 MG Vital Signs/I&O 12/23/21 13:30 Temp 36.2 Pulse 85 Resp 17 B/P (MAP) 160/90 (113) O2 Delivery Room Air Capillary Refill : Less Than 3 Seconds Blood Pressure Mean: 113 Point of Care Testing Finger Stick Blood Glucose: 196 Blood Glucose Action Taken: NONE Progress Note : Progress Note 1. DM/ HYPERGLYCEMIA: -Fingerstick initially in ER was 337, then after 5 units of short acting insulin was given and 1 L of fluids, fingerstick was 196. -Patient felt better once blood glucose was controlled. -UA was normal without any evidence of ketones, CBC and CMP were unremarkable. Chest x-ray normal -Advised patient to follow-up with PCP, and to be compliant with insulin as prescribed by PCP. Advised patient to adhere to a diabetic diet. -The patient was seen in the ED, and treated appropriately to presentation at a specific point in time. Patient is informed that there is a possibility that disease and illness can evolve and change in acuity rapidly or slowly after patient is discharged from the ER. Precautionary advice given to the patient for immediate return to ER if symptoms worsen or do not resolve, and to seek emergen cy care sooner rather than later. Pt also advised on the importance of PCP follow up and compliance with management and follow up plan. Pt verbally expressed understanding.- Diagnostic Imaging Diagonstic Imaging: Xray Plain Films/CT/US/NM/MRI: chest Comments NAME: [facility]ON[facility] REC#: [id number] PT STATUS: REG ER : 1970 PHYSICIAN: BARBARA GUADARRAMA MD ADMIT DATE: 12/23/21/ER FS Draft Date of Exam:12/23/21 CHEST 1 VIEW AP/PA ONLY INDICATION: Diabetic ketoacidosis, upper abdominal pain, nausea, vomiting.. TECHNIQUE: Single view chest 1:59 PM. CORRELATION STUDY: 10/16/2020 FINDINGS: The heart size, mediastinal configuration and pulmonary vascularity are within normal limits. Sternal wires. The lungs are somewhat hyperinflated but overall clear with no consolidating infiltrate. There is no significant effusion or pneumothorax. IMPRESSION: 1. Negative for acute abnormality of the chest. Dictated on workstation # [id number] Dict: 12/23/21 1405 Trans: 12/23/21 1406 DO [id number] Interpreted Follow-up with PCP to: Discuss Further Options Departure Impression Primary Impression: Type 2 diabetes mellitus Qualified Codes: E11.9 - Type 2 diabetes mellitus without complications Additional Impression: Hyperglycemia Disposition: 01 HOME, SELF-CARE Condition: Improved Departure-Patient Inst. Referrals: ZULMA HERRERA APRN (PCP) Primary Care Physician [facility] (Family) Primary Care Physician Patient Instructions: Diabetes and Diet, High Blood Sugar, Adult ED Add. Discharge Instructions: F/u with PCP. Return to ER if symptoms worsen or do not improve. All discharge instructions reviewed with patient and/or family. Voiced understanding. BARBARA GUADARRAMA MD Dec 23, 2021 14:59
[2021-12-23 15:12] VITALS: BP 136/75
[2021-12-23] MEDS ORDERED: KETOROLAC 30 MG/ML VIAL IVP ONE (15:15)
== END 2021-12-23 15:12 | disposition home or self-care (01) ==
LOC: EDUNIT# 13:26 → ER FS 13:27
DX: E11.65 Type 2 diabetes mellitus with hyperglycemia (principal); J44.9 Chronic obstructive pulmonary disease, unspecified; I25.2 Old myocardial infarction; I50.9 Heart failure, unspecified; F17.210 Nicotine dependence, cigarettes, uncomplicated; Z79.4 Long term (current) use of insulin
CPT/HCPCS: 36415; 71045; 80053; 80306; 80320; 81000; 82947; 83690; 83735; 85025

== ENCOUNTER → 2021-12-30 | Outpatient (CLI) | payer MEDICAID ==
--- NOTE | 2021-12-30 14:18 | Diagnostic Imaging Report ---
INDICATION: Lower abdominal pain. Nausea. COMPARISON: 11/20/2020 FINDINGS: Supine and upright views the abdomen demonstrate nonobstructive small bowel gas pattern. Moderate amount of air and stool are seen scattered throughout the colon. No abnormal air-fluid levels or large collection of free intraperitoneal air is seen. No abnormal extraosseous calcifications or radiopaque foreign bodies are identified. Bony structures are age-appropriate. IMPRESSION: 1. Nonobstructive small bowel gas pattern. 2. Moderate colonic air and stool. Please correlate for constipation. Dictated by: Dictated on workstation # [id number]
== END ==
LOC: RAD FS 13:24
PROVIDERS: ATTEND Nurse Practitioner Family
DX: R10.30 Lower abdominal pain, unspecified (principal)
CPT/HCPCS: 74019

== ENCOUNTER 2022-06-13 11:10 | Emergency (ER) | payer OTHER, MEDICAID ==
[~2022-06-13] VITALS: Ht 196 cm; Wt 81.4 kg
[2022-06-13] MEDS ORDERED: ORPHENADRINE 60 MG/2 ML (NORFLEX) AMP (ED ONLY) IM STA (11:27)
[2022-06-13] MEDS ORDERED: KETOROLAC 60 MG/2 ML VIAL IM STA (11:27)
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
[2022-06-13] MEDS ORDERED: METH-732 PO (12:25)
[2022-06-13] MEDS ORDERED: HYDR-3820 PO (12:25)
[2022-06-13] MEDS ORDERED: IBUP-1780 PO (12:25)
[2022-06-13 12:33] VITALS: BP 124/104
== END 2022-06-13 12:34 | disposition home or self-care (01) ==
LOC: EDUNIT# 11:10 → ER FS 11:11
DX: S22.32XA Fracture of one rib, left side, initial encounter for closed fracture (principal); E11.9 Type 2 diabetes mellitus without complications; F17.210 Nicotine dependence, cigarettes, uncomplicated; Z79.4 Long term (current) use of insulin; V28.4XXA Motorcycle driver injured in noncollision transport accident in traffic accident, initial encounter; Y92.410 Unspecified street and highway as the place of occurrence of the external cause
CPT/HCPCS: 71250; 74176

== ENCOUNTER 2022-06-27 11:32 | Emergency (ER) | payer OTHER, MEDICAID ==
[~2022-06-27 11:32] MED LIST changes: +HYDR-3820 PO; +METH-732 PO
[2022-06-27 11:40] VITALS: BP 133/119
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
== END 2022-06-27 11:45 | disposition left against medical advice (07) ==
LOC: EDUNIT# 11:32 → ER FS 11:35
DX: R07.81 Pleurodynia (principal); Z87.828 Personal history of other (healed) physical injury and trauma
CPT/HCPCS: 99281

== ENCOUNTER 2022-07-05 12:22 | Emergency (ER) | payer MEDICAID ==
[~2022-07-05] VITALS: Ht 193 cm; Wt 70.0 kg
[2022-07-05 12:34] VITALS: BP 106/74
[2022-07-05] MEDS ORDERED: cefTRIAXone 1,000 MG VIAL IM STA (12:36)
[2022-07-05] MEDS ORDERED: LIDOCAINE 1% INJ 50 ML (XYLOCAINE) VIAL IJ STA (12:36)
--- NOTE | 2022-07-05 12:43 | ED Integumentary General ---
General Stated Complaint: SKIN INFECTION Source: patient History of Present Illness Date Seen by Provider: Jul 05, 2022 Time Seen by Provider: 12:23 Initial Comments 52-year-old male presenting with complaints of multiple sores on his arms and back. He is unsure how long they have been there. He admits to picking at them and that they are sore. He had noticed some spots on his scalp today. He had tried to go to the [facility] but the did not seem to have time for him so he came here to the emergency department. He denies having fever or chills. He was just complaining of pain at the site of the sores. He denies having these in the past. Severity: moderate Location: scalp, torso, extremities Possible Cause: no cause identified Modifying Factors: worse with scratching Associated Symptoms: No blisters, No edema, No fever, No flushing, No headache, No hives, No jaundice, No malaise, No nasal congestion, No numbness, No pallor, No paresthesia, No petechiae; rash (Multiple sores on his arms and trunk as well as a scalp); No sore throat, No swelling/mass/lumps, No tingling Allergies and Home Medications Allergies Coded Allergies: Penicillins (Unverified Adverse Reaction, Unknown, 07/22/19) Patient Home Medication List Home Medication List Reviewed: Yes Capsaicin (Capsaicin) 42.5 Gm Cream..g., 42.5 GM TP Q12H PRN for PAIN-SEVERE (8- 10) Prescribed by: SOUMYA CARRERO on 09/20/212146 Ciprofloxacin HCl (Ciprofloxacin HCl) 500 Mg Tablet, 500 MG PO BID Prescribed by: ALYSIA GERARD on 12/18/21 1447 Dicyclomine HCl (Dicyclomine HCl) 20 Mg Tablet, 20 MG PO Q6H PRN for abdominal cramping/pain Prescribed by: ALYSIA GERARD on 11/08/21 2238 Hydrocodone/Acetaminophen (Hydrocodone-Acetamin 5-325 mg) 1 Each Tablet, 1 TAB PO Q4H PRN for PAIN-MODERATE (5-7) Prescribed by: ABEL PECK on 05/31/21 2325 Hydrocodone/Acetaminophen (Hydrocodone-Acetamin 5-325 mg) 1 Each Tablet, 1 TAB PO Q4H PRN for PAIN-SEVERE (8-10) Prescribed by: ALYSIA GERARD on 12/18/21 1447 Hydrocodone/Acetaminophen (Hydrocodone-Acetamin 10-325 mg) 10 Mg-325 Mg Tablet, 1 EACH PO Q4H PRN for PAIN-SEVERE (8-10) Prescribed by: ALYSIA GERARD on 06/13/22 1226 Ibuprofen (Ibuprofen) 800 Mg Tablet, 800 MG PO Q8H PRN for PAIN Prescribed by: ALYSIA GERARD on 06/13/22 1225 Insulin Determir (Levemir) 1,000 Units/10 Ml Soln, 14 UNITS SQ BID Prescribed by: Whitney Lange on 09/10/21 1613 Insulin Lispro (Insulin Lispro Kwikpen U-100) 100 Unit/1 Ml Insuln.pen, 5 UNIT SQ ACHS, (Reported) Entered as Reported by: Whitney Lange on 09/10/21 1632 Methocarbamol (Methocarbamol) 750 Mg Tablet, 1,500 MG PO Q8H PRN for MUSCLE SPASMS Prescribed by: ALYSIA GERARD on 06/13/22 1225 Metoclopramide HCl (Reglan) 10 Mg Tablet, 10 MG PO TID Prescribed by: ALAINA OLEARY on 09/13/21 1037 Metronidazole (Metronidazole) 500 Mg Tablet, 500 MG PO BID Prescribed by: ALYSIA GERARD on 12/18/21 1447 Mupirocin (Mupirocin) 2 % Oint...g., 0.5 GM TP BID Prescribed by: ALYSIA GERARD on 07/05/22 1247 Oxycodone HCl/Acetaminophen (Percocet 7.5-325 mg Tablet) 1 Each Tablet, 1 TAB PO Q6H PRN for PAIN-MODERATE (5-7) Prescribed by: PURVI DAWSON on 01/08/21 1533 Promethazine HCl (Promethazine Tablet) 25 Mg Tablet, 25 MG PO Q6H PRN for NAUSEA/VOMITING Prescribed by: ALYSIA GERARD on 12/18/21 1447 Sulfamethoxazole/Trimethoprim (Bactrim Ds Tablet) 1 Each Tablet, 1 EACH PO BID Prescribed by: ALYSIA GERARD on 07/05/22 1247 Review of Systems Review of Systems Constitutional: No chills, No fever EENTM: no symptoms reported Respiratory: no symptoms reported Cardiovascular: no symptoms reported Gastrointestinal: no symptoms reported Genitourinary: no symptoms reported Musculoskeletal: no symptoms reported Skin: see HPI Psychiatric/Neurological: No Symptoms Reported Past Usldkrz-Neiktk-Gjwwxy Hx Patient Social History Tobacco Use?: Yes Immunizations Up To Date Tetanus Booster (TDap): Unknown First/Initial COVID19 Vaccinat: UNKNOWN DATE Second COVID19 Vaccination [place]: UNKNOWN DATE Third COVID19 Vaccination Date: 09/2021 Seasonal Allergies Seasonal Allergies: No Past Medical History Surgery/Hospitalization HX: Insulin dependent DM, Bipolar, Cassie fundoplication; Hep C +; left rib fx Surgeries: Yes (UGI, ? Heart Surgery per prior hx family, R lower leg lesion removed) Cardiac, Gallbladder Respiratory: Yes COPD Currently Using CPAP: No Currently Using BIPAP: No Cardiac: Yes (heart surgery at 16mo for hole in heart; [place] 4 months ago, Systolic CHF) Atrial Fibrillation, Cardiomyopathy, Heart Attack, Irregular Heartbeat Neurological: No Genitourinary: No Gastrointestinal: Yes (Gastritis, Duodenitis, frequent alcohol intake, Hep C) Hepatitis Musculoskeletal: Yes Fractures Endocrine: Yes (Refuses to monitor blood sugar and to use insulin) Diabetes, Insulin dep HEENT: No Cancer: No Psychosocial: Yes (polysubstance abuse ) Anxiety Integumentary: Yes (Hidradenitis Suppurative, frequent abscesses, necrotizing fasciitis) Blood Disorders: Yes (Hep C+) Adverse Reaction/Blood Tranf: No Family Medical History No Pertinent Family Hx Physical Exam Vital Signs Capillary Refill : General Appearance: other (Chronically ill with disheveled appearance and poor hygiene) HEENT: PERRL/EOMI, pharynx normal, other (Left parietal and occipital scalp of skin lesions that her slightly raised with erythema and yellow-colored crusty drainage.) Neck: non-tender, full range of motion, supple, normal inspection Cardiovascular: normal peripheral pulses, regular rate, rhythm Respiratory: chest non-tender, lungs clear, normal breath sounds Extremities: normal range of motion, normal capillary refill Neurologic/Psychiatric: alert, oriented x 3 Skin: warm/dry Skin Problem Location: scalp, upper extremities, torso Skin Problem Character: erythema, lesion, tenderness, other (Erythematous lesions with tenderness and yellow crusty drainage present on arms, scalp, right upper back, bilateral forearms) Procedures/Interventions Date of ETT Placement: Jul 23, 2019 Time of ETT Placement: 0546 Progress/Results/Core Measures Results/Orders My Orders Orders - ALYSIA GERARD MD Ceftriaxone (Rocephin) (07/05/22 12:36) Lidocaine 1% Inj 50 Ml (Xylocaine 1% Inj (07/05/22 12:36) Progress Progress Note : Progress Note Will try treating with Bactrim for a cellulitis and mupirocin topically for the scalp lesions. Start with the Rocephin IM shot here in the ED to help rhonda start trying to treat he skin infection. Encouraged to check back with the clinic as they may need to do a biopsy or refer to dermatology if not improving. Departure Impression Primary Impression: Cellulitis Qualified Codes: L03.90 - Cellulitis, unspecified Additional Impressions: Skin rash Skin lesion of scalp Disposition: HOME, SELF-CARE Condition: Stable Departure-Patient Inst. Decision time for Depature: 12:47 Referrals: ZULMA HERRERA APRN (PCP) Primary Care Physician [facility] (Family) Primary Care Physician Patient Instructions: Skin Rash ED, Cellulitis (Skin Infection), Adult ED Add. Discharge Instructions: Take full course of antibiotics to treat for skin rash and sores on your scalp and skin. Follow up with clinic if not improving as they may have to biopsy the spots or refer you to a hotel lobby concierge. Scripts Mupirocin (Mupirocin) 2 % Oint...g. 0.5 GM TP BID for scalp lesions for 10 Days, #22 GM 0 Refills Apply thin layer of ointment to scalp lesions twice a day for 10 days Prov: ALYSIA EGRARD MD 07/05/22 Sulfamethoxazole/Trimethoprim (Bactrim Ds Tablet) 1 Each Tablet 1 EACH PO BID for cellulitis for 10 Days, #20 TAB 0 Refills Prov: ALYSIA GERARD MD 07/05/22 ALYSIA GERARD MD Jul 05, 2022 12:43
[2022-07-05] MEDS ORDERED: MUPI22OI2 TP (12:47)
[2022-07-05] MEDS ORDERED: SULF1TAB38 PO (12:47)
== END 2022-07-05 13:06 | disposition home or self-care (01) ==
LOC: EDUNIT# 12:22 → ER FS 12:24
DX: L03.811 Cellulitis of head [any part, except face] (principal); L03.312 Cellulitis of back [any part except buttock and flank]; L03.114 Cellulitis of left upper limb; L03.113 Cellulitis of right upper limb; Z88.0 Allergy status to penicillin
CPT/HCPCS: 99281

== ENCOUNTER 2022-09-29 10:41 | Emergency (ER) | payer MEDICAID ==
[~2022-09-29 10:41] MED LIST changes: +MUPI22OI2 TP
[2022-09-29] MEDS ORDERED: LIDOCAINE 1% INJ 20 ML VIAL ONE (10:49)
--- NOTE | 2022-09-29 10:54 | ED Integumentary General ---
General Chief Complaint: Skin/Wound Problems Stated Complaint: ABCESS ON BACK Source: patient, old records History of Present Illness Date Seen by Provider: Sep 29, 2022 Time Seen by Provider: 10:49 Initial Comments 52-year-old male presenting with complaints of increasing pain and swelling to abscess on his back. He states this has been present for the last 4 days and keeps getting worse. He denies having fever or chills. He just complains of increasing pain. He has been trying to use a heating pad on the area but has not had any drainage symptoms noted. He has had prior abscesses that were methicillin sensitive staph aureus. He has multiple scabs from picking at his skin on his body. He denies any acute injury to his back to cause the abscess. He has not taken anything for the pain. He denies having nausea or vomiting. Timing/Duration: getting worse (over the last 4 days) Severity: severe Location: torso (right upper back) Possible Cause: no cause identified Modifying Factors: worse with scratching (pressure or scratching it makes it burn and hurt) Associated Symptoms: change in skin texture; No fever, No flushing, No headache, No jaundice; malaise; No nasal congestion, No numbness, No pallor, No paresthesia, No petechiae, No rash, No sore throat Allergies and Home Medications Allergies Coded Allergies: Penicillins (Unverified Adverse Reaction, Unknown, 07/22/19) Patient Home Medication List Home Medication List Reviewed: Yes Capsaicin (Capsaicin) 42.5 Gm Cream..g., 42.5 GM TP Q12H PRN for PAIN-SEVERE (8- 10) Prescribed by: SOUMYA CARRERO on 09/20/212146 Ciprofloxacin HCl (Ciprofloxacin HCl) 500 Mg Tablet, 500 MG PO BID Prescribed by: ALYSIA GERARD on 12/18/21 1447 Dicyclomine HCl (Dicyclomine HCl) 20 Mg Tablet, 20 MG PO Q6H PRN for abdominal cramping/pain Prescribed by: ALYSIA GERARD on 11/08/21 2238 Hydrocodone/Acetaminophen (Hydrocodone-Acetamin 5-325 mg) 1 Each Tablet, 1 TAB PO Q4H PRN for PAIN-MODERATE (5-7) Prescribed by: ABEL PECK on 05/31/21 2325 Hydrocodone/Acetaminophen (Hydrocodone-Acetamin 5-325 mg) 1 Each Tablet, 1 TAB PO Q4H PRN for PAIN-SEVERE (8-10) Prescribed by: ALYSIA GERARD on 12/18/21 1447 Hydrocodone/Acetaminophen (Hydrocodone-Acetamin 10-325 mg) 10 Mg-325 Mg Tablet, 1 EACH PO Q4H PRN for PAIN-SEVERE (8-10) Prescribed by: ALYSIA GERARD on 06/13/22 1226 Hydrocodone/Acetaminophen (Hydrocodone-Acetamin 10-325 mg) 10 Mg-325 Mg Tablet, 1 EACH PO Q6H PRN for PAIN-SEVERE (8-10) Prescribed by: ALYSIA GERARD on 09/29/22 1118 Ibuprofen (Ibuprofen) 800 Mg Tablet, 800 MG PO Q8H PRN for PAIN Prescribed by: ALYSIA GERARD on 06/13/22 1225 Ibuprofen (Ibuprofen) 800 Mg Tablet, 800 MG PO Q8H PRN for PAIN Prescribed by: ALYSIA GERARD on 09/29/22 1117 Insulin Determir (Levemir) 1,000 Units/10 Ml Soln, 14 UNITS SQ BID Prescribed by: Whitney Lange on 09/10/21 1613 Insulin Lispro (Insulin Lispro Kwikpen U-100) 100 Unit/1 Ml Insuln.pen, 5 UNIT SQ ACHS, (Reported) Entered as Reported by: Whitney Lange on 09/10/21 1632 Methocarbamol (Methocarbamol) 750 Mg Tablet, 1,500 MG PO Q8H PRN for MUSCLE SPASMS Prescribed by: ALYSIA GERARD on 06/13/22 1225 Metoclopramide HCl (Reglan) 10 Mg Tablet, 10 MG PO TID Prescribed by: ALAINA OLEARY on 09/13/21 1037 Metronidazole (Metronidazole) 500 Mg Tablet, 500 MG PO BID Prescribed by: ALYSIA GERARD on 12/18/21 1447 Mupirocin (Mupirocin) 2 % Oint...g., 0.5 GM TP BID Prescribed by: ALYSIA GERARD on 07/05/22 1247 Oxycodone HCl/Acetaminophen (Percocet 7.5-325 mg Tablet) 1 Each Tablet, 1 TAB PO Q6H PRN for PAIN-MODERATE (5-7) Prescribed by: PURVI DAWSON on 01/08/21 1533 Promethazine HCl (Promethazine Tablet) 25 Mg Tablet, 25 MG PO Q6H PRN for NAUSEA/VOMITING Prescribed by: ALYSIA GERARD on 12/18/21 1447 Sulfamethoxazole/Trimethoprim (Bactrim Ds Tablet) 1 Each Tablet, 1 EACH PO BID Prescribed by: ALYSIA GERARD on 07/05/22 1247 Sulfamethoxazole/Trimethoprim (Bactrim Ds Tablet) 1 Each Tablet, 1 EACH PO BID Prescribed by: ALYSIA GERARD on 09/29/22 1117 Review of Systems Review of Systems Constitutional: No chills, No fever; malaise EENTM: no symptoms reported Respiratory: no symptoms reported Cardiovascular: no symptoms reported Gastrointestinal: no symptoms reported Genitourinary: no symptoms reported Musculoskeletal: no symptoms reported Skin: see HPI Psychiatric/Neurological: No Symptoms Reported Past Yvrwpuh-Gqbxkc-Ioitqj Hx Patient Social History Tobacco Use?: Yes Substance use?: Yes Substance type: Marijuana Alcohol Use?: No Immunizations Up To Date Tetanus Booster (TDap): Unknown First/Initial COVID19 Vaccinat: UNKNOWN DATE Second COVID19 Vaccination [place]: UNKNOWN DATE Third COVID19 Vaccination Date: 09/2021 Seasonal Allergies Seasonal Allergies: No Past Medical History Surgery/Hospitalization HX: Insulin dependent DM, Bipolar, Cassie fundoplication; Hep C +; left rib fx Surgeries: Yes (UGI, ? Heart Surgery per prior hx family, R lower leg lesion removed) Cardiac, Gallbladder Respiratory: Yes COPD Currently Using CPAP: No Currently Using BIPAP: No Cardiac: Yes (heart surgery at 16mo for hole in heart; [place] 4 months ago, Systolic CHF) Atrial Fibrillation, Cardiomyopathy, Heart Attack, Irregular Heartbeat Neurological: No Genitourinary: No Gastrointestinal: Yes (Gastritis, Duodenitis, frequent alcohol intake, Hep C) Hepatitis Musculoskeletal: Yes Fractures Endocrine: Yes (Refuses to monitor blood sugar and to use insulin) Diabetes, Insulin dep HEENT: No Cancer: No Psychosocial: Yes (polysubstance abuse ) Anxiety Integumentary: Yes (Hidradenitis Suppurative, frequent abscesses, necrotizing fasciitis) Blood Disorders: Yes (Hep C+) Adverse Reaction/Blood Tranf: No Family Medical History No Pertinent Family Hx Physical Exam Vital Signs Vital Signs - First Documented 09/29/22 10:47 Temp 36.5 Pulse 104 Resp 17 B/P (MAP) 121/76 (91) Pulse Ox 98 O2 Delivery Room Air Capillary Refill : General Appearance: mild distress (intermittent moaning), other (appears chronically ill) HEENT: PERRL/EOMI, pharynx normal Neck: non-tender, full range of motion, supple, normal inspection Cardiovascular: normal peripheral pulses, regular rate, rhythm Respiratory: chest non-tender, lungs clear, normal breath sounds, no respiratory distress, no accessory muscle use Neurologic/Psychiatric: alert, oriented x 3 Skin: warm/dry Skin Problem Location: torso (right upper back) Skin Problem Character: abscess, erythema, swelling, tenderness, warm, other (multiple other sores on back and arms/legs from where he has been picking at the skin) Procedures/Interventions I&D : Site: right upper back Blade Size: 11 I & D Procedure: betadine prep, sterile dressing applied Progress verbally consented for incision and drainage of the area on his back. He was initially cleaned with Betadine prep and then using 1% plain lidocaine 1 mL was infiltrated subcutaneously to help with anesthetic effect. Then using an 11 blade scalpel a single stab incision was made with mild bleeding and moderate amount of purulent discharge. Culture was obtained and sent to the lab of the purulent discharge. After applying pressure additional purulent discharge was obtained. Patient tolerated procedure well without any immediate complication. Date of ETT Placement: Jul 23, 2019 Time of ETT Placement: 05 Progress/Results/Core Measures Results/Orders My Orders Orders - ALYSIA GERARD MD Lidocaine 1% Inj 20 Ml (Xylocaine 1% Inj (09/29/22 10:49) Wound Culture (09/29/22 11:06) Ceftriaxone (Rocephin) (09/29/22 11:07) Morphine Injection (Morphine Injection (09/29/22 11:07) Rx-Trimeth/Sulfameth Ds Tab (Rx-Bactrim/ (09/29/22 11:07) Rx-Hydrocodone/Apap 5-325 Mg (Rx-Vicodin (09/29/22 11:15) Lidocaine 1% Inj 20 Ml (Xylocaine 1% Inj (09/29/22 11:15) Medications Given in ED Current Medications Medications Dose Ordered Sig/Scarlett Route Start Time Stop Time Status Last Admin Dose Admin Lidocaine HCl 20 ml STK-MED ONCE .ROUTE 09/29/22 10:49 09/29/22 10:51 DC 09/29/22 11:07 20 ML Vital Signs/I&O 09/29/22 10:47 Temp 36.5 Pulse 104 Resp 17 B/P (MAP) 121/76 (91) Pulse Ox 98 O2 Delivery Room Air Progress Progress Note : Progress Note verbally consented for incision and drainage of the area on his back. He was initially cleaned with Betadine prep and then using 1% plain lidocaine 1 mL was infiltrated subcutaneously to help with anesthetic effect. Then using an 11 blade scalpel a single stab incision was made with mild bleeding and moderate amount of purulent discharge. Culture was obtained and sent to the lab of the purulent discharge. After applying pressure additional purulent discharge was obtained. Patient tolerated procedure well without any immediate complication. 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 However when asked further he denied having a day haul or farm charter bus driver. We will send pain pills and antibiotics with him. He did receive Rocephin 1 g IM. Continue with Bactrim DS 1 p.o. twice daily x10 days as well as given a 3-day prescription for hydrocodone 10/325 1 every 6 hours as needed for severe pain at home. Sent with a take-home pack of 4 pills of hydrocodone 5/325 mg strength 1 every 6 hours. Counseled on follow-up and return precautions. Departure Impression Primary Impression: Abscess of back Disposition: 01 HOME, SELF-CARE Condition: Stable Departure-Patient Inst. Decision time for Depature: 11:16 Referrals: ZULMA HERRERA APRN (PCP) Primary Care Physician [facility] (Family) Primary Care Physician Patient Instructions: Abscess Incision and Drainage ED, Boil, Adult ED Add. Discharge Instructions: Keep area covered as it will bleed and hopefully drain more as you are taking the antibiotics and keep applying heat to the area to help it come to a head and drain. Apply heat for 15-20 minutes every few hours as needed to help the area come to a head and drain. Take full course of antibiotics to treat for infection. If the culture comes back showing you need a different antibiotic you will get a call so it can be changed. Check with clinic for continued concerns or if not improving by Monday with taking the antibiotics All discharge instructions reviewed with patient and/or family. Voiced understanding. Scripts Ibuprofen (Ibuprofen) 800 Mg Tablet 800 MG PO Q8H PRN for PAIN for 10 Days, #30 TAB 0 Refills Prov: ALYSIA GERARD MD 09/29/22 Hydrocodone/Acetaminophen (Hydrocodone-Acetamin 10-325 mg) 10 Mg-325 Mg Tablet 1 EACH PO Q6H PRN for PAIN-SEVERE (8-10) for 3 Days, #12 TAB 0 Refills Prov: ALYSIA GERARD MD 09/29/22 Sulfamethoxazole/Trimethoprim (Bactrim Ds Tablet) 1 Each Tablet 1 EACH PO BID for abscess for 10 Days, #20 TAB 0 Refills Prov: ALYSIA GERARD MD 09/29/22 ALYSIA GERARD MD Sep 29, 2022 10:54
[2022-09-29] MEDS ORDERED: RX-TRIMETH/SULFA. 160-800 MG (BACTRIM DS) TAB PPK#2 PO STA (11:07)
[2022-09-29] MEDS ORDERED: morphine INJ 10 MG/ML 1ML (SYR OR VIAL) IM STA (11:07)
[2022-09-29] MEDS ORDERED: cefTRIAXone 1,000 MG VIAL IM STA (11:07)
[2022-09-29] MEDS ORDERED: LIDOCAINE 1% INJ 20 ML VIAL INJ ONE (11:15)
[2022-09-29 11:17] VITALS: BP 121/76
[2022-09-29] MEDS ORDERED: SULF1TAB38 PO (11:17)
[2022-09-29] MEDS ORDERED: IBUP-1780 PO (11:17)
[2022-09-29] MEDS ORDERED: HYDR-3820 PO (11:17)
== END 2022-09-29 11:26 | disposition home or self-care (01) ==
LOC: EDUNIT# 10:41 → ER FS 10:42
DX: L02.212 Cutaneous abscess of back [any part, except buttock and flank] (principal); E11.9 Type 2 diabetes mellitus without complications; Z88.0 Allergy status to penicillin; Z79.4 Long term (current) use of insulin
CPT/HCPCS: 87070; 87077; 87186; 87205; 99284

== ENCOUNTER 2022-10-06 17:15 | Emergency (ER) | payer MEDICAID ==
[~2022-10-06] VITALS: Ht 193 cm; Wt 66.0 kg
--- NOTE | 2022-10-06 17:21 | ED General ---
General Stated Complaint: ABD PAIN History of Present Illness Date Seen by Provider: Oct 06, 2022 Time Seen by Provider: 17:21 Initial Comments 52-year-old male presents with abdominal pain. Patient reports he has had abdominal pain for 2 weeks and is just gotten worse. He reports that it throughout his whole abdomen. He has some nausea and vomiting with it. Patient is a insulin-dependent diabetic reports that his blood sugars been under control. Patient also has a large abscess on his right posterior shoulder that he was seen on 09/29/2022 had an incision and drainage and was started on Bactrim however he did not get the Bactrim filled. Patient reports he had the pain at that time but "thought would go away" so he did not bring it up during the ER visit. Allergies and Home Medications Allergies Coded Allergies: Penicillins (Unverified Adverse Reaction, Unknown, 07/22/19) Patient Home Medication List Home Medication List Reviewed: Yes Capsaicin (Capsaicin) 42.5 Gm Cream..g., 42.5 GM TP Q12H PRN for PAIN-SEVERE (8- 10) Prescribed by: SOUMYA CARRERO on 09/20/21 214 Ciprofloxacin HCl (Ciprofloxacin HCl) 500 Mg Tablet, 500 MG PO BID Prescribed by: ALYSIA GERARD on 12/18/21 1447 Dicyclomine HCl (Dicyclomine HCl) 20 Mg Tablet, 20 MG PO Q6H PRN for abdominal cramping/pain Prescribed by: ALYSIA GERARD on 11/08/21 2238 Hydrocodone/Acetaminophen (Hydrocodone-Acetamin 5-325 mg) 1 Each Tablet, 1 TAB PO Q4H PRN for PAIN-MODERATE (5-7) Prescribed by: ABEL PECK on 05/31/21 2325 Hydrocodone/Acetaminophen (Hydrocodone-Acetamin 5-325 mg) 1 Each Tablet, 1 TAB PO Q4H PRN for PAIN-SEVERE (8-10) Prescribed by: ALYSIA GERARD on 12/18/21 1447 Hydrocodone/Acetaminophen (Hydrocodone-Acetamin 10-325 mg) 10 Mg-325 Mg Tablet, 1 EACH PO Q4H PRN for PAIN-SEVERE (8-10) Prescribed by: ALYSIA GUZMANRT on 06/13/22 1226 Hydrocodone/Acetaminophen (Hydrocodone-Acetamin 10-325 mg) 10 Mg-325 Mg Tablet, 1 EACH PO Q6H PRN for PAIN-SEVERE (8-10) Prescribed by: ALYSIA GERARD on 09/29/22 1118 Ibuprofen (Ibuprofen) 800 Mg Tablet, 800 MG PO Q8H PRN for PAIN Prescribed by: ALYSIA GERARD on 06/13/22 1225 Ibuprofen (Ibuprofen) 800 Mg Tablet, 800 MG PO Q8H PRN for PAIN Prescribed by: ALYSIA GERARD on 09/29/22 1117 Insulin Determir (Levemir) 1,000 Units/10 Ml Soln, 14 UNITS SQ BID Prescribed by: Whitney Lange on 09/10/21 1613 Insulin Lispro (Insulin Lispro Kwikpen U-100) 100 Unit/1 Ml Insuln.pen, 5 UNIT SQ ACHS, (Reported) Entered as Reported by: Whitney Lange on 09/10/21 1632 Methocarbamol (Methocarbamol) 750 Mg Tablet, 1,500 MG PO Q8H PRN for MUSCLE SPASMS Prescribed by: ALYSIA GERARD on 06/13/22 1225 Metoclopramide HCl (Reglan) 10 Mg Tablet, 10 MG PO TID Prescribed by: ALAINA OLEARY on 09/13/21 1037 Metronidazole (Metronidazole) 500 Mg Tablet, 500 MG PO BID Prescribed by: ALYSIA GERARD on 12/18/21 1447 Mupirocin (Mupirocin) 2 % Oint...g., 0.5 GM TP BID Prescribed by: ALYSIA GERARD on 07/05/22 1247 Oxycodone HCl/Acetaminophen (Percocet 7.5-325 mg Tablet) 1 Each Tablet, 1 TAB PO Q6H PRN for PAIN-MODERATE (5-7) Prescribed by: PURVI DAWSON on 01/08/21 1533 Promethazine HCl (Promethazine Tablet) 25 Mg Tablet, 25 MG PO Q6H PRN for NAUSEA/VOMITING Prescribed by: ALYSIA GERARD on 12/18/21 1447 Sulfamethoxazole/Trimethoprim (Bactrim Ds Tablet) 1 Each Tablet, 1 EACH PO BID Prescribed by: ALYSIA GERARD on 07/05/22 1247 Sulfamethoxazole/Trimethoprim (Bactrim Ds Tablet) 1 Each Tablet, 1 EACH PO BID Prescribed by: ALYSIA GERARD on 09/29/22 1117 Review of Systems Review of Systems Constitutional: No chills; fever, malaise, weakness Respiratory: No cough, No short of breath Cardiovascular: No chest pain, No palpitations Gastrointestinal: abdominal pain, nausea, other (Dry heaves) Musculoskeletal: no symptoms reported Skin: see HPI Psychiatric/Neurological: No Symptoms Reported Hematologic/Lymphatic: No Symptoms Reported Past Ttupcya-Lnhdum-Dtfjhl Hx Immunizations Up To Date Tetanus Booster (TDap): Unknown First/Initial COVID19 Vaccinat: UNKNOWN DATE Second COVID19 Vaccination [place]: UNKNOWN DATE Third COVID19 Vaccination Date: 09/2021 Seasonal Allergies Seasonal Allergies: No Past Medical History Surgery/Hospitalization HX: Insulin dependent DM, Bipolar, Cassie fundoplication; Hep C +; left rib fx Surgeries: Yes (UGI, ? Heart Surgery per prior hx family, R lower leg lesion removed) Cardiac, Gallbladder Respiratory: Yes COPD Currently Using CPAP: No Currently Using BIPAP: No Cardiac: Yes (heart surgery at 16mo for hole in heart; CA 4 months ago, Systolic CHF) Atrial Fibrillation, Cardiomyopathy, Heart Attack, Irregular Heartbeat Neurological: No Genitourinary: No Gastrointestinal: Yes (Gastritis, Duodenitis, frequent alcohol intake, Hep C) Hepatitis Musculoskeletal: Yes Fractures Endocrine: Yes (Refuses to monitor blood sugar and to use insulin) Diabetes, Insulin dep HEENT: No Cancer: No Psychosocial: Yes (polysubstance abuse ) Anxiety Integumentary: Yes (Hidradenitis Suppurative, frequent abscesses, necrotizing fasciitis) Blood Disorders: Yes (Hep C+) Adverse Reaction/Blood Tranf: No Family Medical History No Pertinent Family Hx Physical Exam Vital Signs Vital Signs - First Documented 10/06/22 17:32 Temp 35.9 Pulse 83 Resp 20 B/P (MAP) 147/ Pulse Ox 100 O2 Delivery Room Air Capillary Refill : Height, Weight, BMI Height: '" Weight: 192lbs. 4.0oz. [id number]; 18.00 BMI Method: General Appearance: Other (Disheveled, unkept) HEENT: PERRL/EOMI Neck: Non Tender, Supple Respiratory: Lungs Clear, Normal Breath Sounds Cardiovascular: Regular Rate, Rhythm, No Edema Gastrointestinal: No Distended; Tenderness (Diffuse) Back: Other (Large abscess right posterior shoulder) Extremity: Normal Capillary Refill, Normal Inspection Neurologic/Psychiatric: Alert, Oriented x3, Normal Mood/Affect, inserter promotional item II-XII Norm as Tested Skin: Other (Large 10 cm abscess right upper back) Focused Exam Lactate Level 10/06/22 17:27: Lactic Acid Level 1.83 Lactic Acid Level Laboratory Tests Test 10/06/22 17:27 Lactic Acid Level 1.83 MMOL/L (0.50-2.00) Procedures/Interventions I&D : Site: Right shoulder blade area Blade Size: 11 I & D Procedure: betadine prep Progress Patient had an approximate 2 cm incision with copious amount of purulent bloody drainage. Patient tolerated well with no immediate complication Date of ETT Placement: Jul 23, 2019 Time of ETT Placement: 0546 Progress/Results/Core Measures Suspected Sepsis SIRS Temperature: Pulse: Respiratory Rate: Laboratory Tests 10/06/22 17:27: White Blood Count 12.2H Blood Pressure / Mean: 10/06/22 17:27: Lactic Acid Level 1.83 Laboratory Tests 10/06/22 17:27: Creatinine 1.50H, Platelet Count 485H, Total Bilirubin 0.3 Results/Orders Lab Results Laboratory Tests Test 10/06/22 17:27 12 17:38 Range/Units White Blood Count 12.2 H 4.3-11.0 10^3/uL Red Blood Count 4.31 4.30-5.52 10^6/uL Hemoglobin 13.2 L 13.3-17.7 g/dL Hematocrit 38 L 40-54 % Mean Corpuscular Volume 89 80-99 fL Mean Corpuscular Hemoglobin 31 25-34 pg Mean Corpuscular Hemoglobin Concent 34 32-36 g/dL Red Cell Distribution Width 11.6 10.0-14.5 % Platelet Count 485 H 130-400 10^3/uL Mean Platelet Volume 9.3 9.0-12.2 fL Immature Granulocyte % (Auto) 1 % Neutrophils (%) (Auto) 81 H 42-75 % Lymphocytes (%) (Auto) 12 12-44 % Monocytes (%) (Auto) 5 0-12 % Eosinophils (%) (Auto) 1 0-10 % Basophils (%) (Auto) 0 0-10 % Neutrophils # (Auto) 9.8 H 1.8-7.8 10^3/uL Lymphocytes # (Auto) 1.5 1.0-4.0 10^3/uL Monocytes # (Auto) 0.6 0.0-1.0 10^3/uL Eosinophils # (Auto) 0.1 0.0-0.3 10^3/uL Basophils # (Auto) 0.0 0.0-0.1 10^3/uL Immature Granulocyte # (Auto) 0.1 0.0-0.1 10^3/uL Sodium Level 136 135-145 MMOL/L Potassium Level 4.9 3.6-5.0 MMOL/L Chloride Level 96 L 98-107 MMOL/L Carbon Dioxide Level 24 21-32 MMOL/L Anion Gap 16 H 5-14 MMOL/L Blood Urea Nitrogen 22 H 7-18 MG/DL Creatinine 1.50 H 0.60-1.30 MG/DL Estimat Glomerular Filtration Rate 56 BUN/Creatinine Ratio 15 Glucose Level 344 H 70-105 MG/DL Lactic Acid Level 1.83 0.50-2.00 MMOL/L Calcium Level 9.0 8.5-10.1 MG/DL Corrected Calcium 9.6 8.5-10.1 MG/DL Total Bilirubin 0.3 0.1-1.0 MG/DL Aspartate Amino Transf (AST/SGOT) 34 5-34 U/L Alanine Aminotransferase (ALT/SGPT) 34 0-55 U/L Alkaline Phosphatase 122 40-136 U/L C-Reactive Protein 0.85 H <0.50 MG/DL Total Protein 7.2 6.4-8.2 GM/DL Albumin 3.3 3.2-4.5 GM/DL Lipase 27 8-78 U/L Venous Blood pH 7.38 7.31-7.41 Venous Blood Partial Pressure CO2 47 40-52 MMHG Venous Blood HCO3 25 22-28 MMOL/L Influenza Type A (RT-PCR) Not Detected Not Detecte Influenza Type B (RT-PCR) Not Detected Not Detecte SARS-CoV-2 RNA (RT-PCR) Not Detected Not Detecte My Orders Orders - HENRY ADAMVOR L DO Cbc With Automated Diff (10/06/22 17:24) Lactic Acid Analyzer (10/06/22 17:24) Blood Culture (10/06/22 17:24) Influenza A And B By Pcr (10/06/22 17:24) Crp Fs (10/06/22 17:24) Covid 19 Inhouse Test (10/06/22 17:24) Venous Blood Gas (10/06/22 17:24) Clindamycin 900 Mg/50 Ml Ivpb (Cleocin P (10/06/22 17:30) Lipase (10/06/22 17:28) Comprehensive Metabolic Panel (10/06/22 17:24) Acute Abd Series (10/06/22 17:36) Fentanyl Inj (Sublimaze Injection) (10/06/22 17:39) Ct Abdomen/Pelvis W (10/06/22 18:38) Iohexol Injection (Omnipaque 350 Mg/Ml 1 (10/06/22 19:00) Received Contrast (Hold Metformin- Contr (10/06/22 19:00) Sodium Chloride Flush (Catheter Flush Sy (10/06/22 19:00) Ns (Ivpb) (Sodium Chloride 0.9% Ivpb Bag (10/06/22 19:00) Dicyclomine Injection (Bentyl Injection) (10/06/22 19:32) Ketorolac Injection (Toradol Injection) (10/06/22 19:32) Fentanyl Inj (Sublimaze Injection) (10/06/22 20:03) Medications Given in ED Current Medications Medications Dose Ordered Sig/Scarlett Route Start Time Stop Time Status Last Admin Dose Admin Clindamycin Phosphate/Dextrose 50 ml @ 100 mls/hr ONCE ONCE IV 10/06/22 17:30 10/06/22 17:59 DC 10/06/22 17:42 100 MLS/HR Iohexol 100 ml ONCE ONCE IV 10/06/22 19:00 10/06/22 19:01 DC 10/06/22 18:59 75 ML Sodium Chloride 100 ml ONCE ONCE IV 10/06/22 19:00 10/06/22 19:01 DC 10/06/22 18:59 100 ML Vital Signs/I&O 10/06/22 10/06/22 17:32 21:07 Temp 35.9 Pulse 83 69 Resp 20 18 B/P (MAP) 147/ 135/75 Pulse Ox 100 99 O2 Delivery Room Air Room Air Capillary Refill : Progress Note : Progress Note Patient with large abscess and concern for early sepsis with a history of diabetes. Patient was also unknown cause for abdominal pain. Patient was provided IV clindamycin in the ER and will be admitted to [facility] Dr. Poe for further inpatient management and possible further abscess debridement. Patient was transferred via EMS in stable condition Departure Impression Primary Impression: Abdominal pain, generalized Additional Impressions: Sepsis Qualified Codes: A41.01 - Sepsis due to methicillin susceptible Staphylococcus aureus Cellulitis and abscess of trunk Disposition: XFER SHT-TRM HOSP Condition: Stable Transfer Transfer Reason: Diversion Time Spoke to Accepting Phy: 20:40 Transfer Progress Notes Patient accepted by Dr. Poe for admission to [facility] Transfer Facility: [facility] Method of Transfer: EMS Departure-Patient Inst. Referrals: ZULMA HERRERA APRN (PCP) Primary Care Physician [facility] (Family) Primary Care Physician TREMAYNE ADAM DO Oct 06, 2022 17:21
[2022-10-06] MEDS ORDERED: CLINDAMYCIN 900 MG/50 ML IVPB 50 ML IV ONE (17:30)
[2022-10-06 17:36] LABS: BASOPHILS % (AUTO) 0 % (0-10); EOSINOPHILS # (AUTO) 0.1 10^3/uL (0.0-0.3); EOSINOPHILS % (AUTO) 1 % (0-10); HEMATOCRIT 38 % (40-54); HEMOGLOBIN 13.2 g/dL (13.3-17.7); LYMPHOCYTES # (AUTO) 1.5 10^3/uL (1.0-4.0); LYMPHOCYTES % (AUTO) 12 % (12-44); MEAN CORPUSCULAR HEMOGLOBIN 31 pg (25-34); MEAN CORPUSCULAR HGB CONC 34 g/dL (32-36); MEAN CORPUSCULAR VOLUME 89 fL (80-99); MEAN PLATELET VOLUME 9.3 fL (9.0-12.2); MONOCYTES # (AUTO) 0.6 10^3/uL (0.0-1.0); MONOCYTES % (AUTO) 5 % (0-12); NEUTROPHILS # (AUTO) 9.8 10^3/uL (1.8-7.8); NEUTROPHILS % (AUTO) 81 % (42-75); PLATELET COUNT 485 10^3/uL (130-400); WHITE BLOOD COUNT 12.2 10^3/uL (4.3-11.0)
[2022-10-06] MEDS ORDERED: fentaNYL INJ 100 MCG/2 ML AMP IVP STA ×2 (17:39→20:03)
[2022-10-06 17:58] LABS: POTASSIUM 4.9 MMOL/L (3.6-5.0)
[2022-10-06 17:59] LABS: ALBUMIN 3.3 GM/DL (3.2-4.5); BILIRUBIN,TOTAL 0.3 MG/DL (0.1-1.0); CREATININE SERUM 1.5 MG/DL (0.60-1.30); TOTAL PROTEIN 7.2 GM/DL (6.4-8.2)
--- NOTE | 2022-10-06 18:22 | Diagnostic Imaging Report ---
INDICATION: Abdominal pain Supine and upright views of the abdomen are obtained with single view of the chest. Lungs are clear, bilaterally. There is no pneumothorax or consolidation. No pleural fluid is seen. Overall bowel gas pattern is unremarkable. Surgical clips are noted in the upper abdomen and right mid abdomen. IMPRESSION: No radiographic evidence of acute abnormality. Dictated by: Dictated on workstation # [id number]
[2022-10-06] MEDS ORDERED: HOLD METFORMIN - RECEIVED CONTRAST 20 ML VIAL IV SCH (19:00)
[2022-10-06] MEDS ORDERED: IOHEXOL 350 MG/ML 100 ML (OMNIPAQUE 350) VIAL IV ONE (19:00)
[2022-10-06] MEDS ORDERED: CATHETER FLUSH 10 ML SYR IV PRN (19:00)
[2022-10-06] MEDS ORDERED: NS 100 ML (IVPB) BAG IV ONE (19:00)
--- NOTE | 2022-10-06 19:27 | Diagnostic Imaging Report ---
EXAMINATION: CT abdomen and pelvis with intravenous contrast. TECHNIQUE: Multiple contiguous axial images were obtained through the abdomen and pelvis after the uneventful administration of intravenous contrast. All CT scans use one or more of the following dose optimizing techniques: automated exposure control, MA and/or KvP adjustment based on patient size and exam type or iterative reconstruction. HISTORY: Abdominal pain. COMPARISON: 06/13/2022. FINDINGS: The heart is unremarkable. The included lung bases are clear. The liver, spleen, pancreas, adrenal glands, and kidneys have a normal appearance. The gallbladder surgically absent. There is no pathologically enlarged mesenteric or retroperitoneal adenopathy. The bowel loops are nondilated. The appendix is visualized in the right lower quadrant and has a normal appearance. There is no free fluid or free air. No acute osseous abnormalities. There is calcified aortic and iliac atherosclerotic plaque without aneurysm. Ureters and bladder are grossly normal. There is no free air, loculated collection, or adenopathy in the pelvis. IMPRESSION: 1. No acute abnormalities in the abdomen and pelvis. No bowel obstruction, free fluid, or free air. Normal appendix. Dictated by: Dictated on workstation # [id number]
[2022-10-06] MEDS ORDERED: DICYCLOMINE 10 MG/ML (BENTYL) 2 ML AMP IM STA (19:32)
[2022-10-06] MEDS ORDERED: KETOROLAC 30 MG/ML VIAL IVP STA (19:32)
[2022-10-06 21:07] VITALS: BP 135/75
== END 2022-10-06 21:15 | disposition short-term general hospital (02) ==
LOC: EDUNIT# 17:15 → ER FS 17:16
DX: L03.311 Cellulitis of abdominal wall (principal); A41.9 Sepsis, unspecified organism; Z20.822 Contact with and (suspected) exposure to COVID-19
CPT/HCPCS: 36415; 74022; 74177; 80053; 82805; 83605; 83690; 85025; 85027; 86141; 87040; 87636; Q9967

== ENCOUNTER 2022-10-20 16:09 | Emergency (ER) | payer MEDICAID ==
[~2022-10-20] VITALS: Ht 193 cm; Wt 65.0 kg
[2022-10-20 16:58] LABS: BASOPHILS % (AUTO) 0 % (0-10); EOSINOPHILS # (AUTO) 0.2 10^3/uL (0.0-0.3); EOSINOPHILS % (AUTO) 2 % (0-10); HEMATOCRIT 37 % (40-54); HEMOGLOBIN 12.8 g/dL (13.3-17.7); LYMPHOCYTES # (AUTO) 2.9 10^3/uL (1.0-4.0); LYMPHOCYTES % (AUTO) 25 % (12-44); MEAN CORPUSCULAR HEMOGLOBIN 31 pg (25-34); MEAN CORPUSCULAR HGB CONC 35 g/dL (32-36); MEAN CORPUSCULAR VOLUME 88 fL (80-99); MEAN PLATELET VOLUME 9.9 fL (9.0-12.2); MONOCYTES # (AUTO) 0.7 10^3/uL (0.0-1.0); MONOCYTES % (AUTO) 6 % (0-12); NEUTROPHILS # (AUTO) 7.4 10^3/uL (1.8-7.8); NEUTROPHILS % (AUTO) 66 % (42-75); PLATELET COUNT 287 10^3/uL (130-400); WHITE BLOOD COUNT 11.3 10^3/uL (4.3-11.0)
[2022-10-20] MEDS ORDERED: fentaNYL INJ 100 MCG/2 ML AMP IVP ONE (17:00)
[2022-10-20] MEDS ORDERED: ONDANSETRON 4 MG/2 ML (SDV) Z0FRAN IVP ONE (17:00)
[2022-10-20 17:19] LABS: ALANINE AMINOTRANSFERASE 39 U/L (0-55); ALKALINE PHOSPHATASE 94 U/L (40-136); BILIRUBIN,TOTAL 0.3 MG/DL (0.1-1.0); BUN/CREATININE RATIO 23; CALCIUM 9.4 MG/DL (8.5-10.1); CARBON DIOXIDE 27 MMOL/L (21-32); CHLORIDE 101 MMOL/L (98-107); CREATININE SERUM 0.79 MG/DL (0.60-1.30); GFR ESTIMATED 107; GLUCOSE 226 MG/DL (70-105); MAGNESIUM 1.7 MG/DL (1.6-2.4); POTASSIUM 4.5 MMOL/L (3.6-5.0); SODIUM 136 MMOL/L (135-145); TOTAL PROTEIN 6.8 GM/DL (6.4-8.2)
[2022-10-20] MEDS ORDERED: ONDANSETRON 4 MG/2 ML (SDV) Z0FRAN ONE (17:19)
[2022-10-20 17:20] LABS: ALBUMIN 3.5 GM/DL (3.2-4.5); LIPASE 41 U/L (8-78)
[2022-10-20 18:06] LABS: BILIRUBIN,URINE NEGATIVE (NEGATIVE); CLARITY,URINE CLEAR; COLOR,URINE YELLOW; GLUCOSE, URINE (UA) 1+ (NEGATIVE); KETONES,URINE NEGATIVE (NEGATIVE); LEUKOCYTE ESTERASE ,URINE NEGATIVE (NEGATIVE); NITRITE,URINE NEGATIVE (NEGATIVE); PH,URINE 6.5 (5-9); PROTEIN,URINE 3+ (NEGATIVE)
[2022-10-20 18:16] LABS: BACTERIA,URINE NEGATIVE /HPF; RBC,URINE 0-2 /HPF; WBC,URINE RARE /HPF
[2022-10-20] MEDS ORDERED: ACHD5005 PO (19:27)
[2022-10-20] MEDS ORDERED: ONDA4TAB11 SL (19:27)
--- NOTE | 2022-10-20 19:28 | ED Abdominal Pain ---
General Chief Complaint: Abdominal/GI Problems Stated Complaint: PN RIGHT SIDE, CANT EAT Nursing Triage Note: Patient has ambulated to ER with cc of right side abd pain. He states that for the last 6 months he has had liver pain. He states that the liver will feel hard at times and soft at times. He has an ultra sound for next Monday. Source of Information: Patient Exam Limitations: No Limitations History of Present Illness Date Seen by Provider: Oct 20, 2022 Time Seen by Provider: 18:13 Initial Comments This 52-year-old man presents to the emergency room with complaints of exacerbation of right upper quadrant pain and nausea. He is having trouble keeping down food and fluids. Pain has been present for about 6 months and he attributes it to hepatitis C. He has had a fundoplication and a cholecystectomy. His primary care provider is Zulma Herrera. Allergies and Home Medications Allergies Coded Allergies: Penicillins (Unverified Adverse Reaction, Unknown, 07/22/19) Patient Home Medication List Home Medication List Reviewed: Yes Capsaicin (Capsaicin) 42.5 Gm Cream..g., 42.5 GM TP Q12H PRN for PAIN-SEVERE (8- 10) Prescribed by: SOUMYA CARRERO on 09/20/21 2147 Ciprofloxacin HCl (Ciprofloxacin HCl) 500 Mg Tablet, 500 MG PO BID Prescribed by: ALYSIA GERARD on 12/18/21 1447 Dicyclomine HCl (Dicyclomine HCl) 20 Mg Tablet, 20 MG PO Q6H PRN for abdominal cramping/pain Prescribed by: ALYSIA GERARD on 11/08/21 2238 Hydrocodone/Acetaminophen (Hydrocodone-Acetamin 5-325 mg) 1 Each Tablet, 1 TAB PO Q4H PRN for PAIN-MODERATE (5-7) Prescribed by: ABEL PECK on 05/31/21 2325 Hydrocodone/Acetaminophen (Hydrocodone-Acetamin 5-325 mg) 1 Each Tablet, 1 TAB PO Q4H PRN for PAIN-SEVERE (8-10) Prescribed by: ALYSIA GERARD on 12/18/21 1447 Hydrocodone/Acetaminophen (Hydrocodone-Acetamin 10-325 mg) 10 Mg-325 Mg Tablet, 1 EACH PO Q4H PRN for PAIN-SEVERE (8-10) Prescribed by: ALYSIA GERARD on 06/13/22 1226 Hydrocodone/Acetaminophen (Hydrocodone-Acetamin 10-325 mg) 10 Mg-325 Mg Tablet, 1 EACH PO Q6H PRN for PAIN-SEVERE (8-10) Prescribed by: ALYSIA GERARD on 09/29/22 1118 Hydrocodone/Acetaminophen (Hydrocodone-Acetamin 5-325 mg) 5 Mg-325 Mg Tablet, 1 TAB PO Q6H PRN for PAIN-MODERATE (5-7) Prescribed by: RONNY WALLACE on 10/20/22 192 Ibuprofen (Ibuprofen) 800 Mg Tablet, 800 MG PO Q8H PRN for PAIN Prescribed by: ALYSIA GERARD on 06/13/22 1225 Ibuprofen (Ibuprofen) 800 Mg Tablet, 800 MG PO Q8H PRN for PAIN Prescribed by: ALYSIA GERARD on 09/29/22 1117 Insulin Determir (Levemir) 1,000 Units/10 Ml Soln, 14 UNITS SQ BID Prescribed by: Whitney Lange on 09/10/21 1613 Insulin Lispro (Insulin Lispro Kwikpen U-100) 100 Unit/1 Ml Insuln.pen, 5 UNIT SQ ACHS, (Reported) Entered as Reported by: Whitney Lange on 09/10/21 1632 Methocarbamol (Methocarbamol) 750 Mg Tablet, 1,500 MG PO Q8H PRN for MUSCLE SPASMS Prescribed by: ALYSIA GERARD on 06/13/22 1225 Metoclopramide HCl (Reglan) 10 Mg Tablet, 10 MG PO TID Prescribed by: ALAINA OLEARY on 09/13/21 1037 Metronidazole (Metronidazole) 500 Mg Tablet, 500 MG PO BID Prescribed by: ALYSIA GERARD on 12/18/21 1447 Mupirocin (Mupirocin) 2 % Oint...g., 0.5 GM TP BID Prescribed by: ALYSIA GERARD on 07/05/22 1247 Ondansetron (Ondansetron Odt) 4 Mg Tab.rapdis, 4 MG SL Q4H PRN for NAUSEA/VOMITING Prescribed by: RONNY WALLACE on 10/20/221926 Oxycodone HCl/Acetaminophen (Percocet 7.5-325 mg Tablet) 1 Each Tablet, 1 TAB PO Q6H PRN for PAIN-MODERATE (5-7) Prescribed by: PURVI DAWSON on 01/08/21 1533 Promethazine HCl (Promethazine Tablet) 25 Mg Tablet, 25 MG PO Q6H PRN for NAUSEA/VOMITING Prescribed by: ALYSIA GERARD on 12/18/21 1447 Sulfamethoxazole/Trimethoprim (Bactrim Ds Tablet) 1 Each Tablet, 1 EACH PO BID Prescribed by: ALYSIA GERARD on 07/05/22 1247 Sulfamethoxazole/Trimethoprim (Bactrim Ds Tablet) 1 Each Tablet, 1 EACH PO BID Prescribed by: ALYSIA GERARD on 09/29/22 1117 Review of Systems Review of Systems Constitutional: no symptoms reported EENTM: No Symptoms Reported Respiratory: No Symptoms Reported Cardiovascular: No Symptoms Reported Gastrointestinal: See HPI Genitourinary: No Symptoms Reported Musculoskeletal: no symptoms reported Skin: no symptoms reported Psychiatric/Neurological: No Symptoms Reported Endocrine: No Symptoms Reported Hematologic/Lymphatic: No Symptoms Reported Past Guhwxrz-Wszbxi-Vjmqwe Hx Patient Social History Tobacco Use?: Yes Tobacco type used: Cigarettes Smoking Status: Current Everyday Smoker Use of E-Cig and/or Vaping dev: No Substance use?: Yes Substance type: Marijuana Substance frequency: Daily Immunizations Up To Date Tetanus Booster (TDap): Unknown First/Initial COVID19 Vaccinat: UNKNOWN DATE Second COVID19 Vaccination [place]: UNKNOWN DATE Third COVID19 Vaccination Date: 09/2021 Seasonal Allergies Seasonal Allergies: No Past Medical History Surgery/Hospitalization HX: Insulin dependent DM, Bipolar, Cassie fundoplication; Hep C +; left rib fx Surgeries: Yes (UGI, ? Heart Surgery per prior hx family, R lower leg lesion removed) Cardiac, Gallbladder Respiratory: Yes COPD Currently Using CPAP: No Currently Using BIPAP: No Cardiac: Yes (heart surgery at 16mo for hole in heart; [place] 4 months ago, Systolic CHF) Atrial Fibrillation, Cardiomyopathy, Heart Attack, Irregular Heartbeat Neurological: No Genitourinary: No Gastrointestinal: Yes (Gastritis, Duodenitis, frequent alcohol intake, Hep C) Hepatitis Musculoskeletal: Yes Fractures Endocrine: Yes (Refuses to monitor blood sugar and to use insulin) Diabetes, Insulin dep HEENT: No Cancer: No Psychosocial: Yes (polysubstance abuse ) Anxiety Integumentary: Yes (Hidradenitis Suppurative, frequent abscesses, necrotizing fasciitis) Blood Disorders: Yes (Hep C+) Adverse Reaction/Blood Tranf: No Family Medical History No Pertinent Family Hx Physical Exam Vital Signs Vital Signs - First Documented 10/20/22 16:45 Temp 36.4 Pulse 81 Resp 20 B/P (MAP) 144/93 (110) Pulse Ox 100 O2 Delivery Room Air Capillary Refill : Height/Weight/BMI Height: '" Weight: 192lbs. 4.0oz. [id number]; 17.00 BMI Method: General Appearance: WD/WN, no apparent distress HEENT: normal ENT inspection Neck: normal inspection Respiratory: lungs clear, normal breath sounds, no respiratory distress Cardiovascular: regular rate, rhythm, no edema, no murmur Gastrointestinal: normal bowel sounds, soft, distended Extremities: normal inspection, no pedal edema Back: normal inspection, no vertebral tenderness Neurologic/Psychiatric: no motor/sensory deficits, alert, normal mood/affect Skin: normal color, warm/dry Procedures/Interventions Date of ETT Placement: Jul 23, 2019 Time of ETT Placement: 0546 Progress/Results/Core Measures Results/Orders Lab Results Laboratory Tests Test 10/20/22 16:35 10/20/22 17:51 Range/Units White Blood Count 11.3 H 4.3-11.0 10^3/uL Red Blood Count 4.20 L 4.30-5.52 10^6/uL Hemoglobin 12.8 L 13.3-17.7 g/dL Hematocrit 37 L 40-54 % Mean Corpuscular Volume 88 80-99 fL Mean Corpuscular Hemoglobin 31 25-34 pg Mean Corpuscular Hemoglobin Concent 35 32-36 g/dL Red Cell Distribution Width 12.5 10.0-14.5 % Platelet Count 287 130-400 10^3/uL Mean Platelet Volume 9.9 9.0-12.2 fL Immature Granulocyte % (Auto) 0 % Neutrophils (%) (Auto) 66 42-75 % Lymphocytes (%) (Auto) 25 12-44 % Monocytes (%) (Auto) 6 0-12 % Eosinophils (%) (Auto) 2 0-10 % Basophils (%) (Auto) 0 0-10 % Neutrophils # (Auto) 7.4 1.8-7.8 10^3/uL Lymphocytes # (Auto) 2.9 1.0-4.0 10^3/uL Monocytes # (Auto) 0.7 0.0-1.0 10^3/uL Eosinophils # (Auto) 0.2 0.0-0.3 10^3/uL Basophils # (Auto) 0.0 0.0-0.1 10^3/uL Immature Granulocyte # (Auto) 0.0 0.0-0.1 10^3/uL Sodium Level 136 135-145 MMOL/L Potassium Level 4.5 3.6-5.0 MMOL/L Chloride Level 101 98-107 MMOL/L Carbon Dioxide Level 27 21-32 MMOL/L Anion Gap 8 5-14 MMOL/L Blood Urea Nitrogen 18 7-18 MG/DL Creatinine 0.79 0.60-1.30 MG/DL Estimat Glomerular Filtration Rate 107 BUN/Creatinine Ratio 23 Glucose Level 226 H 70-105 MG/DL Calcium Level 9.4 8.5-10.1 MG/DL Corrected Calcium 9.8 8.5-10.1 MG/DL Magnesium Level 1.7 1.6-2.4 MG/DL Total Bilirubin 0.3 0.1-1.0 MG/DL Aspartate Amino Transf (AST/SGOT) 32 5-34 U/L Alanine Aminotransferase (ALT/SGPT) 39 0-55 U/L Alkaline Phosphatase 94 40-136 U/L C-Reactive Protein < 0.30 <0.50 MG/DL Total Protein 6.8 6.4-8.2 GM/DL Albumin 3.5 3.2-4.5 GM/DL Lipase 41 8-78 U/L Urine Color YELLOW Urine Clarity CLEAR Urine pH 6.5 5-9 Urine Specific Barnum 1.025 H 1.016-1.022 Urine Protein 3+ H NEGATIVE Urine Glucose (UA) 1+ H NEGATIVE Urine Ketones NEGATIVE NEGATIVE Urine Nitrite NEGATIVE NEGATIVE Urine Bilirubin NEGATIVE NEGATIVE Urine Urobilinogen 0.2 < = 1.0 MG/DL Urine Leukocyte Esterase NEGATIVE NEGATIVE Urine RBC (Auto) TRACE-I H NEGATIVE Urine RBC 0-2 /HPF Urine WBC RARE /HPF Urine Squamous Epithelial Cells NONE /HPF Urine Crystals NONE /LPF Urine Bacteria NEGATIVE /HPF Urine Casts NONE /LPF Urine Mucus NEGATIVE /LPF Urine Culture Indicated NO My Orders Orders - RONNY GOULD MD Ua Culture If Indicated (10/20/22 16:13) Cbc With Automated Diff (10/20/22 16:52) Comprehensive Metabolic Panel (10/20/22 16:52) Lipase (10/20/22 16:52) Magnesium (10/20/22 16:52) Crp Fs (10/20/22 16:52) Ed Iv/Invasive Line Start (10/20/22 16:52) Ondansetron Injection (Zofran Injectio (10/20/22 17:00) Fentanyl Inj (Sublimaze Injection) (10/20/22 17:00) Ondansetron Injection (Zofran Injectio (10/20/22 17:19) Hydrocodone/Apap 5/325 Tablet (Lortab 5 (10/20/22 19:30) Medications Given in ED Current Medications Medications Dose Ordered Sig/Scarlett Route Start Time Stop Time Status Last Admin Dose Admin Acetaminophen/ Hydrocodone Bitart 1 ea ONCE ONCE PO 10/20/22 19:30 10/20/22 19:31 DC 10/20/22 19:34 1 EA Fentanyl Citrate 50 mcg ONCE ONCE IVP 10/20/22 17:00 10/20/22 17:01 DC 10/20/22 17:14 50 MCG Ondansetron HCl 8 mg ONCE ONCE IVP 10/20/22 17:00 10/20/22 17:01 DC 10/20/22 17:12 8 MG Vital Signs/I&O 10/20/22 10/20/22 16:45 19:37 Temp 36.4 Pulse 81 73 Resp 20 16 B/P (MAP) 144/93 (110) 154/96 Pulse Ox 100 98 O2 Delivery Room Air Room Air Blood Pressure Mean: 110 Progress Progress Note : Progress Note Work-up revealed no problems requiring immediate attention. Pain was treated with fentanyl and hydrocodone. Nausea was treated with Zofran. See discharge instructions for further discussion. Departure Impression Primary Impression: Abdominal pain, chronic, right upper quadrant Additional Impressions: Nausea and vomiting Qualified Codes: R11.2 - Nausea with vomiting, unspecified Hepatitis C Qualified Codes: B19.20 - Unspecified viral hepatitis C without hepatic coma Disposition: HOME, SELF-CARE Condition: Improved Departure-Patient Inst. Decision time for Depature: 19:26 Referrals: ZULMA HERRERA APRN (PCP) Primary Care Physician [facility] (Family) Primary Care Physician Patient Instructions: Abdominal Pain, Adult ED Add. Discharge Instructions: Drink plenty of clear liquids to stay well-hydrated. Use the Zofran (ondansetron) dissolved under the tongue every 4 hours as needed for nausea and vomiting. Use your pain medication as prescribed. Follow-up with your primary care provider to discuss your pain and chronic pain management. Follow through with the ultrasound scheduled for Monday. Return to care if you have worsening symptoms despite following these in structions. All discharge instructions reviewed with patient and/or family. Voiced understanding. Scripts Hydrocodone/Acetaminophen (Hydrocodone-Acetamin 5-325 mg) 5 Mg-325 Mg Tablet 1 TAB PO Q6H PRN for PAIN-MODERATE (5-7), #10 TAB Prov: RONNY GOULD MD 10/20/22 Ondansetron (Ondansetron Odt) 4 Mg Tab.rapdis 4 MG SL Q4H PRN for NAUSEA/VOMITING, #10 TAB Prov: RONNY GOULD MD 10/20/22 Copy Copies To 1: [facility] [place] RONNY GOULD MD Oct 20, 2022 19:28
[2022-10-20] MEDS ORDERED: HYDROcodone/APAP 5 MG/325 MG (LORTAB) TAB PO ONE (19:30)
[2022-10-20 19:37] VITALS: BP 154/96
== END 2022-10-20 19:38 | disposition home or self-care (01) ==
LOC: EDUNIT# 16:09 → ER FS 16:12
DX: B19.20 Unspecified viral hepatitis C without hepatic coma (principal); E11.9 Type 2 diabetes mellitus without complications; F17.210 Nicotine dependence, cigarettes, uncomplicated; Z90.49 Acquired absence of other specified parts of digestive tract; Z79.4 Long term (current) use of insulin
CPT/HCPCS: 36415; 80053; 81000; 83690; 83735; 85025; 86141; 99283

== ENCOUNTER 2023-01-05 14:19 | Emergency (ER) | payer MEDICAID ==
[~2023-01-05] VITALS: Ht 193 cm; Wt 83.8 kg
[~2023-01-05 14:19] MED LIST changes: +ONDA4TAB11 SL
--- NOTE | 2023-01-05 14:23 | ED General ---
General Stated Complaint: RT SHOULDER PAIN; NAUSEA; SOB History of Present Illness Date Seen by Provider: Jan 05, 2023 Time Seen by Provider: 14:23 Initial Comments 52-year-old male presents with "knot on his back of his right shoulder" of nausea. Patient has chronic nausea and chronic shortness of breath from marijuana use. He reports that he just frequently use marijuana. Patient also has sores all over his skin with the "knot" began a subcutaneous abscess. Patient denies any fevers chills. He has not vomited. Patient denies any illicit drug use besides marijuana. Reports has not used meth in 20 years. He is unsure why he has sores all over his skin. Allergies and Home Medications Allergies Coded Allergies: Penicillins (Unverified Adverse Reaction, Unknown, 07/22/19) Patient Home Medication List Home Medication List Reviewed: Yes Capsaicin (Capsaicin) 42.5 Gm Cream..g., 42.5 GM TP Q12H PRN for PAIN-SEVERE (8- 10) Prescribed by: SOUMYA CARRERO on 09/20/21 214 Ciprofloxacin HCl (Ciprofloxacin HCl) 500 Mg Tablet, 500 MG PO BID Prescribed by: ALYSIA GERARD on 12/18/21 1447 Dicyclomine HCl (Dicyclomine HCl) 20 Mg Tablet, 20 MG PO Q6H PRN for abdominal cramping/pain Prescribed by: ALYSIA GERARD on 11/08/21 2238 Hydrocodone/Acetaminophen (Hydrocodone-Acetamin 5-325 mg) 1 Each Tablet, 1 TAB PO Q4H PRN for PAIN-MODERATE (5-7) Prescribed by: ABEL PECK on 05/31/21 2325 Hydrocodone/Acetaminophen (Hydrocodone-Acetamin 5-325 mg) 1 Each Tablet, 1 TAB PO Q4H PRN for PAIN-SEVERE (8-10) Prescribed by: ALYSIA GERARD on 12/18/21 1447 Hydrocodone/Acetaminophen (Hydrocodone-Acetamin 10-325 mg) 10 Mg-325 Mg Tablet, 1 EACH PO Q4H PRN for PAIN-SEVERE (8-10) Prescribed by: ALYSIA GERARD on 06/13/22 1226 Hydrocodone/Acetaminophen (Hydrocodone-Acetamin 10-325 mg) 10 Mg-325 Mg Tablet, 1 EACH PO Q6H PRN for PAIN-SEVERE (8-10) Prescribed by: ALYSIA GERARD on 09/29/22 1118 Hydrocodone/Acetaminophen (Hydrocodone-Acetamin 5-325 mg) 5 Mg-325 Mg Tablet, 1 TAB PO Q6H PRN for PAIN-MODERATE (5-7) Prescribed by: RONNY WALLACE on 10/20/221927 Ibuprofen (Ibuprofen) 800 Mg Tablet, 800 MG PO Q8H PRN for PAIN Prescribed by: ALYSIA GERARD on 06/13/22 1225 Ibuprofen (Ibuprofen) 800 Mg Tablet, 800 MG PO Q8H PRN for PAIN Prescribed by: ALYSIA GERARD on 09/29/22 1117 Insulin Determir (Levemir) 1,000 Units/10 Ml Soln, 14 UNITS SQ BID Prescribed by: Whitney Lange on 09/10/21 1613 Insulin Lispro (Insulin Lispro Kwikpen U-100) 100 Unit/1 Ml Insuln.pen, 5 UNIT SQ ACHS, (Reported) Entered as Reported by: Whitney Lange on 09/10/21 1632 Methocarbamol (Methocarbamol) 750 Mg Tablet, 1,500 MG PO Q8H PRN for MUSCLE SPASMS Prescribed by: ALYSIA GERARD on 06/13/22 1225 Metoclopramide HCl (Reglan) 10 Mg Tablet, 10 MG PO TID Prescribed by: ALAINA OLEARY on 09/13/21 1037 Metronidazole (Metronidazole) 500 Mg Tablet, 500 MG PO BID Prescribed by: ALYSIA GERARD on 12/18/21 1447 Mupirocin (Mupirocin) 2 % Oint...g., 0.5 GM TP BID Prescribed by: ALYSIA GERARD on 07/05/22 1247 Ondansetron (Ondansetron Odt) 4 Mg Tab.rapdis, 4 MG SL Q4H PRN for NAUSEA/VOMITING Prescribed by: RONNY WALLACE on 10/20/221926 Oxycodone HCl/Acetaminophen (Percocet 7.5-325 mg Tablet) 1 Each Tablet, 1 TAB PO Q6H PRN for PAIN-MODERATE (5-7) Prescribed by: PURVI DAWSON on 01/08/21 1533 Promethazine HCl (Promethazine Tablet) 25 Mg Tablet, 25 MG PO Q6H PRN for NAUSEA/VOMITING Prescribed by: ALYSIA GUZMANRT on 12/18/21 1447 Sulfamethoxazole/Trimethoprim (Bactrim Ds Tablet) 1 Each Tablet, 1 EACH PO BID Prescribed by: ALYSIA GUZMANRT on 07/05/22 1247 Sulfamethoxazole/Trimethoprim (Bactrim Ds Tablet) 1 Each Tablet, 1 EACH PO BID Prescribed by: ALYSIA ALVAREZYART on 09/29/22 1117 Review of Systems Review of Systems Constitutional: No chills, No fever Respiratory: No cough Cardiovascular: No chest pain Gastrointestinal: nausea; No vomiting Musculoskeletal: see HPI Skin: see HPI Past [id number]-Fafqww-Vipnvt Hx Immunizations Up To Date Tetanus Booster (TDap): Unknown First/Initial COVID19 Vaccinat: UNKNOWN DATE Second COVID19 Vaccination [place]: UNKNOWN DATE Third COVID19 Vaccination Date: 09/2021 Seasonal Allergies Seasonal Allergies: No Past Medical History Surgery/Hospitalization HX: Insulin dependent DM, Bipolar, Cassie fundoplication; Hep C +; left rib fx Surgeries: Yes (UGI, ? Heart Surgery per prior hx family, R lower leg lesion removed) Cardiac, Gallbladder Respiratory: Yes COPD Currently Using CPAP: No Currently Using BIPAP: No Cardiac: Yes (heart surgery at 16mo for hole in heart; [place] 4 months ago, Systolic CHF) Atrial Fibrillation, Cardiomyopathy, Heart Attack, Irregular Heartbeat Neurological: No Genitourinary: No Gastrointestinal: Yes (Gastritis, Duodenitis, frequent alcohol intake, Hep C) Hepatitis Musculoskeletal: Yes Fractures Endocrine: Yes (Refuses to monitor blood sugar and to use insulin) Diabetes, Insulin dep HEENT: No Cancer: No Psychosocial: Yes (polysubstance abuse ) Anxiety Integumentary: Yes (Hidradenitis Suppurative, frequent abscesses, necrotizing fasciitis) Blood Disorders: Yes (Hep C+) Adverse Reaction/Blood Tranf: No Family Medical History No Pertinent Family Hx Physical Exam Vital Signs Capillary Refill : Height, Weight, BMI Height: '" Weight: 192lbs. 4.0oz. 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 II-XII Norm as Tested Skin: Other (2.5 cm subcutaneous abscess right shoulder blade area along with numerous sores over his upper extremities chest and back.) Procedures/Interventions Date of ETT Placement: Jul 23, 2019 Time of ETT Placement: 545 Progress/Results/Core Measures Suspected Sepsis SIRS Temperature: Pulse: Respiratory Rate: Blood Pressure / Mean: Results/Orders Lab Results Laboratory Tests Test 01/05/23 14:21 Range/Units My Orders Orders - HEATHER ADAMR L DO Drug Screen Stat (Urine) (01/05/23 14:26) Vital Signs/I&O Capillary Refill : Progress Note : Progress Note Patient with subcutaneous abscess. I will treat him with doxycycline. He has a history of abscess with one of them requiring surgery. I did discuss with him proper skin care to help with this including Hibiclens. Recommend that he c onsider stopping his marijuana use as he comes in with chronic nausea associated with marijuana use. Patient stable on discharge Departure Impression Primary Impression: Abscess of back Additional Impression: Cannabis hyperemesis syndrome concurrent with and due to cannabis abuse Disposition: 01 HOME, SELF-CARE Condition: Stable Departure-Patient Inst. Referrals: ZULMA HERRERA APRN (PCP) Primary Care Physician [facility] (Family) Primary Care Physician Patient Instructions: ABSCESS Add. Discharge Instructions: Please use Hibiclens twice daily over your upper extremities and body to help with your sores. Take antibiotic as prescribed for 10 days. Follow-up with your primary care provider in 3 to 4 days for recheck of your sore in her back to ensure it is healing and improving. Scripts Ondansetron (Ondansetron Odt) 4 Mg Tab.rapdis 4 MG PO Q6H PRN for NAUSEA/VOMITING, #20 TAB 0 Refills Prov: HENRY ADAMVOR L DO 01/05/23 Chlorhexidine Gluconate (Hibiclens) 4 % Liquid 118 ML TP Q12H for 10 Days, #1 EA Prov: HENRY ADAMVOR L DO 01/05/23 Doxycycline Hyclate (Doxycycline Hyclate) 100 Mg Tablet 100 MG PO BID, #20 TAB 0 Refills Prov: ADAM,TREMAYNE L DO 01/05/23 HENRY ADAMVOR L DO Jan 05, 2023 14:23
[2023-01-05] MEDS ORDERED: KETOROLAC 30 MG/ML VIAL IM STA (14:34)
[2023-01-05] MEDS ORDERED: ONDANSETRON 4 MG (ZOFRAN) ORAL DISSOLVE TAB SL STA (14:34)
[2023-01-05] MEDS ORDERED: fentaNYL INJ 100 MCG/2 ML AMP IM STA (14:34)
[2023-01-05] MEDS ORDERED: CHLO118L TP (14:40)
[2023-01-05] MEDS ORDERED: DOXY100T2 PO (14:40)
[2023-01-05] MEDS ORDERED: ONDA4TAB11 PO (14:41)
[2023-01-05 14:45] LABS: AMPHETAMINE SCREEN, URINE NEGATIVE (NEGATIVE); BARBITURATE SCREEN URINE NEGATIVE (NEGATIVE); BENZODIAZEPINES SCREEN URINE NEGATIVE (NEGATIVE); CANNABINOID SCREEN, URINE POSITIVE (NEGATIVE); COCAINE SCREEN URINE NEGATIVE (NEGATIVE); METHADONE STAT NEGATIVE (NEGATIVE); OPIATE SCREEN URINE NEGATIVE (NEGATIVE); OXYCODONE STAT NEGATIVE (NEGATIVE); PROPOXYPHENE STAT NEGATIVE (NEGATIVE); TRICYCLIC ANTIDEPRESSANTS SCRE NEGATIVE (NEGATIVE)
[2023-01-05 15:01] VITALS: BP 137/89
== END 2023-01-05 15:01 | disposition home or self-care (01) ==
LOC: EDUNIT# 14:19 → ER FS 14:20
DX: L02.212 Cutaneous abscess of back [any part, except buttock and flank] (principal); R11.2 Nausea with vomiting, unspecified; F12.10 Cannabis abuse, uncomplicated; Z88.1 Allergy status to other antibiotic agents
CPT/HCPCS: 80306; 87070; 87077; 87186; 87205; 99284

== ENCOUNTER 2023-01-08 18:30 | Emergency (ER) | payer MEDICAID ==
[~2023-01-08 18:30] MED LIST changes: +CHLO118L TP; +DOXY100T2 PO; +ONDA4TAB11 PO
--- NOTE | 2023-01-08 18:35 | ED Abdominal Pain ---
General Stated Complaint: ABD PAIN History of Present Illness Date Seen by Provider: Jan 08, 2023 Time Seen by Provider: 18:30 Initial Comments 52-year-old male with PMH of DM2/hepatitis C/daily marijuana abuser, is here with complaints of abdominal pain which has been going on for the past 1 week. Patient was in the ER last and was discharged with cyclical vomiting and abdominal pain due to marijuana use. Patient has not had any food to eat today due to nausea and vomiting at home. Pain has been worsening over the past couple of days. Abdominal pain is generalized and diffuse. Patient has had constipation for the past 3 days. Denies diarrhea, fever and chills, chest pain, palpitations, dysuria, hematuria. Allergies and Home Medications Allergies Coded Allergies: Penicillins (Unverified Adverse Reaction, Unknown, 07/22/19) Patient Home Medication List Home Medication List Reviewed: Yes Capsaicin (Capsaicin) 42.5 Gm Cream..g., 42.5 GM TP Q12H PRN for PAIN-SEVERE (8- 10) Prescribed by: SOUMYA CARRERO on 09/20/212146 Chlorhexidine Gluconate (Hibiclens) 4 % Liquid, 118 ML TP Q12H Prescribed by: TREMAYNE ADAM on 01/05/23 144 Ciprofloxacin HCl (Ciprofloxacin HCl) 500 Mg Tablet, 500 MG PO BID Prescribed by: ALYSIA GERARD on 12/18/21 144 Dicyclomine HCl (Dicyclomine HCl) 20 Mg Tablet, 20 MG PO Q6H PRN for abdominal cramping/pain Prescribed by: ALYSIA GERARD on 11/08/212237 Doxycycline Hyclate (Doxycycline Hyclate) 100 Mg Tablet, 100 MG PO BID Prescribed by: TREMAYNE ADAM on 01/05/23 144 Hydrocodone/Acetaminophen (Hydrocodone-Acetamin 5-325 mg) 1 Each Tablet, 1 TAB PO Q4H PRN for PAIN-MODERATE (5-7) Prescribed by: ABEL PECK on 05/31/21 232 Hydrocodone/Acetaminophen (Hydrocodone-Acetamin 5-325 mg) 1 Each Tablet, 1 TAB PO Q4H PRN for PAIN-SEVERE (8-10) Prescribed by: ALYSIA GERARD on 12/18/21 1447 Hydrocodone/Acetaminophen (Hydrocodone-Acetamin 10-325 mg) 10 Mg-325 Mg Tablet, 1 EACH PO Q4H PRN for PAIN-SEVERE (8-10) Prescribed by: ALYSIA GERARD on 06/13/22 1226 Hydrocodone/Acetaminophen (Hydrocodone-Acetamin 10-325 mg) 10 Mg-325 Mg Tablet, 1 EACH PO Q6H PRN for PAIN-SEVERE (8-10) Prescribed by: ALYSIA GERARD on 09/29/22 1118 Hydrocodone/Acetaminophen (Hydrocodone-Acetamin 5-325 mg) 5 Mg-325 Mg Tablet, 1 TAB PO Q6H PRN for PAIN-MODERATE (5-7) Prescribed by: RONNY WALLACE on 10/20/22 1928 Ibuprofen (Ibuprofen) 800 Mg Tablet, 800 MG PO Q8H PRN for PAIN Prescribed by: ALYSIA GERARD on 06/13/22 1225 Ibuprofen (Ibuprofen) 800 Mg Tablet, 800 MG PO Q8H PRN for PAIN Prescribed by: ALYSIA GERARD on 09/29/22 1117 Insulin Determir (Levemir) 1,000 Units/10 Ml Soln, 14 UNITS SQ BID Prescribed by: Whitney Lange on 09/10/21 1613 Insulin Lispro (Insulin Lispro Kwikpen U-100) 100 Unit/1 Ml Insuln.pen, 5 UNIT SQ ACHS, (Reported) Entered as Reported by: Whitney Lange on 09/10/21 1632 Methocarbamol (Methocarbamol) 750 Mg Tablet, 1,500 MG PO Q8H PRN for MUSCLE SPASMS Prescribed by: ALYSIA GERARD on 06/13/22 1225 Metoclopramide HCl (Reglan) 10 Mg Tablet, 10 MG PO TID Prescribed by: ALAINA OLEARY on 09/13/21 1037 Metronidazole (Metronidazole) 500 Mg Tablet, 500 MG PO BID Prescribed by: ALYSIA GERARD on 12/18/21 1447 Mupirocin (Mupirocin) 2 % Oint...g., 0.5 GM TP BID Prescribed by: ALYSIA GERARD on 07/05/22 1247 Ondansetron (Ondansetron Odt) 4 Mg Tab.rapdis, 4 MG SL Q4H PRN for NAUSEA/VOMITING Prescribed by: RONNY WALLACE on 10/20/22 192 Ondansetron (Ondansetron Odt) 4 Mg Tab.rapdis, 4 MG PO Q6H PRN for NAUSEA/VOMITING Prescribed by: TREMAYNE ADAM on 01/05/23 1441 Oxycodone HCl/Acetaminophen (Percocet 7.5-325 mg Tablet) 1 Each Tablet, 1 TAB PO Q6H PRN for PAIN-MODERATE (5-7) Prescribed by: PURVI DAWSON on 01/08/21 1533 Promethazine HCl (Promethazine Tablet) 25 Mg Tablet, 25 MG PO Q6H PRN for NAUSEA/VOMITING Prescribed by: ALYSIA GERARD on 12/18/21 1447 Sulfamethoxazole/Trimethoprim (Bactrim Ds Tablet) 1 Each Tablet, 1 EACH PO BID Prescribed by: ALYSIA GERARD on 07/05/22 1247 Sulfamethoxazole/Trimethoprim (Bactrim Ds Tablet) 1 Each Tablet, 1 EACH PO BID Prescribed by: ALYSIA GERARD on 09/29/22 1117 Review of Systems Review of Systems Constitutional: no symptoms reported EENTM: No Symptoms Reported Respiratory: No Symptoms Reported Cardiovascular: No Symptoms Reported Gastrointestinal: Abdominal Pain, Nausea, Poor Appetite, Vomiting Genitourinary: No Symptoms Reported Musculoskeletal: no symptoms reported Skin: no symptoms reported Psychiatric/Neurological: No Symptoms Reported Endocrine: No Symptoms Reported Hematologic/Lymphatic: No Symptoms Reported Past Jgfpjuu-Cjrfjd-Ojgsix Hx Immunizations Up To Date Tetanus Booster (TDap): Unknown First/Initial COVID19 Vaccinat: UNKNOWN DATE Second COVID19 Vaccination [place]: UNKNOWN DATE Third COVID19 Vaccination Date: 09/2021 Seasonal Allergies Seasonal Allergies: No Past Medical History Surgery/Hospitalization HX: Insulin dependent DM, Bipolar, Cassie fundoplication; Hep C +; left rib fx Surgeries: Yes (UGI, ? Heart Surgery per prior hx family, R lower leg lesion removed) Cardiac, Gallbladder Respiratory: Yes COPD Currently Using CPAP: No Currently Using BIPAP: No Cardiac: Yes (heart surgery at 16mo for hole in heart; [place] 4 months ago, Systolic CHF) Atrial Fibrillation, Cardiomyopathy, Heart Attack, Irregular Heartbeat Neurological: No Genitourinary: No Gastrointestinal: Yes (Gastritis, Duodenitis, frequent alcohol intake, Hep C) Hepatitis Musculoskeletal: Yes Fractures Endocrine: Yes (Refuses to monitor blood sugar and to use insulin) Diabetes, Insulin dep HEENT: No Cancer: No Psychosocial: Yes (polysubstance abuse ) Anxiety Integumentary: Yes (Hidradenitis Suppurative, frequent abscesses, necrotizing fasciitis) Blood Disorders: Yes (Hep C+) Adverse Reaction/Blood Tranf: No Family Medical History No Pertinent Family Hx Physical Exam Vital Signs Vital Signs - First Documented 01/08/23 18:30 Temp 36.8 Pulse 81 Resp 16 B/P (MAP) 139/81 (100) Pulse Ox 97 O2 Delivery Room Air Capillary Refill : Height/Weight/BMI Height: '" Weight: 192lbs. 4.0oz. 87.950104gz; 22.00 BMI Method: General Appearance: WD/WN, moderate distress HEENT: PERRL/EOMI Neck: full range of motion Respiratory: chest non-tender, lungs clear, normal breath sounds Cardiovascular: regular rate, rhythm Gastrointestinal: normal bowel sounds, soft, no organomegaly, tenderness (Generalized and diffuse tenderness) Extremities: normal range of motion Back: no CVA tenderness Neurologic/Psychiatric: alert, oriented x 3 Skin: other (Superficial sores all over his body mainly in the extremities) Focused Exam Lactate Level 01/08/23 18:35: Lactic Acid Level 1.27 Lactic Acid Level Laboratory Tests Test 01/08/23 18:35 Lactic Acid Level 1.27 MMOL/L (0.50-2.00) Procedures/Interventions Date of ETT Placement: Jul 23, 2019 Time of ETT Placement: 0546 Progress/Results/Core Measures Results/Orders Lab Results Laboratory Tests Test 01/08/23 18:35 01/08/23 18:38 Range/Units White Blood Count 10.0 4.3-11.0 10^3/uL Red Blood Count 4.24 L 4.30-5.52 10^6/uL Hemoglobin 13.1 L 13.3-17.7 g/dL Hematocrit 38 L 40-54 % Mean Corpuscular Volume 88 80-99 fL Mean Corpuscular Hemoglobin 31 25-34 pg Mean Corpuscular Hemoglobin Concent 35 32-36 g/dL Red Cell Distribution Width 11.9 10.0-14.5 % Platelet Count 312 130-400 10^3/uL Mean Platelet Volume 9.7 9.0-12.2 fL Immature Granulocyte % (Auto) 0 % Neutrophils (%) (Auto) 74 42-75 % Lymphocytes (%) (Auto) 18 12-44 % Monocytes (%) (Auto) 6 0-12 % Eosinophils (%) (Auto) 1 0-10 % Basophils (%) (Auto) 1 0-10 % Neutrophils # (Auto) 7.4 1.8-7.8 10^3/uL Lymphocytes # (Auto) 1.8 1.0-4.0 10^3/uL Monocytes # (Auto) 0.6 0.0-1.0 10^3/uL Eosinophils # (Auto) 0.1 0.0-0.3 10^3/uL Basophils # (Auto) 0.1 0.0-0.1 10^3/uL Immature Granulocyte # (Auto) 0.0 0.0-0.1 10^3/uL Sodium Level 135 135-145 MMOL/L Potassium Level 4.3 3.6-5.0 MMOL/L Chloride Level 100 98-107 MMOL/L Carbon Dioxide Level 26 21-32 MMOL/L Anion Gap 9 5-14 MMOL/L Blood Urea Nitrogen 16 7-18 MG/DL Creatinine 0.95 0.60-1.30 MG/DL Estimat Glomerular Filtration Rate 96 BUN/Creatinine Ratio 17 Glucose Level 263 H 70-105 MG/DL Lactic Acid Level 1.27 0.50-2.00 MMOL/L Calcium Level 9.1 8.5-10.1 MG/DL Corrected Calcium 9.7 8.5-10.1 MG/DL Total Bilirubin 0.2 0.1-1.0 MG/DL Aspartate Amino Transf (AST/SGOT) 23 5-34 U/L Alanine Aminotransferase (ALT/SGPT) 24 0-55 U/L Alkaline Phosphatase 102 40-136 U/L Total Protein 6.5 6.4-8.2 GM/DL Albumin 3.3 3.2-4.5 GM/DL Lipase 135 H 8-78 U/L Serum Alcohol < 10 <10 MG/DL Glucometer 247 H 70-110 MG/DL My Orders Orders - BARBARA GUADARRAMA MD Alcohol (01/08/23 18:35) Cbc With Automated Diff (01/08/23 18:35) Comprehensive Metabolic Panel (01/08/23 18:35) Drug Screen Stat (Urine) (01/08/23 18:35) Lactic Acid Analyzer (01/08/23 18:35) Lipase (01/08/23 18:35) Ua Culture If Indicated (01/08/23 18:35) Ct Abdomen/Pelvis W (01/08/23 18:35) Ondansetron Injection (Zofran Injectio (01/08/23 18:45) Famotidine Injection (Pepcid Injection) (01/08/23 18:36) Ketorolac Injection (Toradol Injection) (01/08/23 18:45) Ed Iv/Invasive Line Start (01/08/23 18:37) Ns Iv 1000 Ml (Sodium Chloride 0.9%) (01/08/23 18:45) Iohexol Injection (Omnipaque 350 Mg/Ml 1 (01/08/23 19:30) Received Contrast (Hold Metformin- Contr (01/08/23 19:30) Sodium Chloride Flush (Catheter Flush Sy (01/08/23 19:30) Ns (Ivpb) (Sodium Chloride 0.9% Ivpb Bag (01/08/23 19:30) Medications Given in ED Current Medications Medications Dose Ordered Sig/Scarlett Route Start Time Stop Time Status Last Admin Dose Admin Iohexol 100 ml ONCE ONCE IV 01/08/23 19:30 01/08/23 19:31 DC 01/08/23 19:36 100 ML Ketorolac Tromethamine 15 mg ONCE ONCE IVP 01/08/23 18:45 01/08/23 18:46 DC 01/08/23 18:44 15 MG Ondansetron HCl 4 mg ONCE ONCE IVP 01/08/23 18:45 01/08/23 18:46 DC 01/08/23 18:45 4 MG Sodium Chloride 10 ml NEEDED PRN IV 01/08/23 19:30 01/08/23 19:37 10 ML Sodium Chloride 100 ml ONCE ONCE IV 01/08/23 19:30 01/08/23 19:31 DC 01/08/23 19:37 100 ML Vital Signs/I&O 01/08/23 18:30 Temp 36.8 Pulse 81 Resp 16 B/P (MAP) 139/81 (100) Pulse Ox 97 O2 Delivery Room Air Progress Progress Note : Progress Note 1. MARIJUANA ABUSE/ CYCLICAL VOMITING AND ABDOMINAL PAIN DUE TO MARIJUANA/ ACUTE DIVERTICULOSIS: - CT ABD: Mild noninflamed diverticulosis - UA/ UDS: Pt did not giv eurine sample this time, but he smokes marijuana everyday and - CBC/ CMP: unremarkable - Lipase: 135, but CT shows a normal pancreas, and alcohol levels normal - NS IVF bolus / Pepcid 20mg iv / Zofran 4mg/ Toradol 15mg iv STAT -Advised patient to stop using marijuana -Advised Pepcid, Maalox, and Zofran which she has at home. -Advised to follow-up with PCP in the next 3 to 5 days -Advised adequate hydration -Andrew food advised -The patient was seen in the ED, and treated appropriately to presentation at a specific point in time. Patient is informed that there is a possibility that disease and illness can evolve and change in acuity rapidly or slowly after patient is discharged from the ER. Precautionary advice given to the patient for immediate return to ER if symptoms worsen or do not resolve, and to seek emergency care sooner rather than later. Pt also advised on the importance of PCP follow up and compliance with management and follow up plan with PCP and/or specialist, as this is part of the management plan. Pt verbally expressed understanding. Diagnostic Imaging Diagonstic Imaging: CT Plain Films/CT/US/NM/MRI: abdomen Comments NAME: LEONOR LAZARO [facility] REC#: [id number] PT STATUS: REG ER : 1970 PHYSICIAN: BARBARA GUADARRAMA MD ADMIT DATE: 01/08/23/ER FS Draft Date of Exam:01/08/23 CT ABDOMEN/PELVIS W PROCEDURE: CT abdomen and pelvis with contrast. TECHNIQUE: Multiple contiguous axial images were obtained through the abdomen and pelvis after administration of intravenous contrast. Auto Exposure Controls were utilized during the CT exam to meet ALARA standards for radiation dose reduction. All CT scans use one or more of the following dose optimizing techniques: automated exposure control, MA and/or KvP adjustment based on patient size and exam type or iterative reconstruction. INDICATION: Abdominal pain. COMPARISON: 10/06/2022. FINDINGS: The lung bases clear. The gallbladder surgically absent. Postcholecystectomy mild biliary ectasia, stable. No radiodense biliary calculus. The pancreas, its duct and the peripancreatic fat are nonacute. There is no hydroureteronephrosis. The spleen and adrenals are negative. The aorta is patent, nonaneurysmal and nonacute. There is a fatty umbilical hernia, noninflamed. There is an air-containing normal appendix, nondilated. There is no diverticulitis. There are a few noninflamed sigmoid diverticula, chronic. The urinary bladder unremarkable. The prostate and seminal vesicles unremarkable. No ascites, abscess, hematoma or acute fluid collection. No pneumatosis or free gas. No focal inflammatory process. IMPRESSION: Stable CT abdomen and pelvis. Mild noninflamed diverticulosis. Tiny fatty umbilical hernia. No obstructive disease, inflammatory process or acute appearing abnormality identified. Dictated on workstation # [id number] Dict: 01/08/231957 Trans: 01/08/232032 PJ [id number] Interpreted by: ROBEL HESS Electronically signed by: Departure Impression Primary Impression: Marijuana abuse, continuous Additional Impression: Diverticulosis of colon without diverticulitis Disposition: HOME, SELF-CARE Condition: Stable Departure-Patient Inst. Referrals: ZULMA HERRERA APRN (PCP) Primary Care Physician [facility]/ (Family) Primary Care Physician Patient Instructions: Diverticulosis (DC), Marijuana, Marijuana Use and Addiction (DC) Add. Discharge Instructions: -Advised patient to stop using marijuana -Advised Pepcid, Maalox, and Zofran which she has at home. -Advised to follow-up with PCP in the next 3 to 5 days -Advised adequate hydration -Andrew food advised BARBARA GUADARRAMA MD Jan 08, 2023 18:35
[2023-01-08] MEDS ORDERED: FAMOTIDINE 20MG/2ML IV (PEPCID) IV STA (18:36)
[2023-01-08 18:45] LABS: BASOPHILS # (AUTO) 0.1 10^3/uL (0.0-0.1); BASOPHILS % (AUTO) 1 % (0-10); EOSINOPHILS # (AUTO) 0.1 10^3/uL (0.0-0.3); EOSINOPHILS % (AUTO) 1 % (0-10); HEMATOCRIT 38 % (40-54); HEMOGLOBIN 13.1 g/dL (13.3-17.7); LYMPHOCYTES # (AUTO) 1.8 10^3/uL (1.0-4.0); LYMPHOCYTES % (AUTO) 18 % (12-44); MEAN CORPUSCULAR HEMOGLOBIN 31 pg (25-34); MEAN CORPUSCULAR HGB CONC 35 g/dL (32-36); MEAN CORPUSCULAR VOLUME 88 fL (80-99); MEAN PLATELET VOLUME 9.7 fL (9.0-12.2); MONOCYTES # (AUTO) 0.6 10^3/uL (0.0-1.0); MONOCYTES % (AUTO) 6 % (0-12); NEUTROPHILS # (AUTO) 7.4 10^3/uL (1.8-7.8); NEUTROPHILS % (AUTO) 74 % (42-75); PLATELET COUNT 312 10^3/uL (130-400)
[2023-01-08] MEDS ORDERED: NS IV 1000 ML 1,000 ML IV SCH (18:45)
[2023-01-08] MEDS ORDERED: ONDANSETRON 4 MG/2 ML (SDV) Z0FRAN IVP ONE (18:45)
[2023-01-08] MEDS ORDERED: KETOROLAC 15 MG/ML VIAL IVP ONE (18:45)
[2023-01-08 19:03] LABS: ALANINE AMINOTRANSFERASE 24 U/L (0-55); ALBUMIN 3.3 GM/DL (3.2-4.5); ALKALINE PHOSPHATASE 102 U/L (40-136); BILIRUBIN,TOTAL 0.2 MG/DL (0.1-1.0); BUN/CREATININE RATIO 17; CALCIUM 9.1 MG/DL (8.5-10.1); CARBON DIOXIDE 26 MMOL/L (21-32); CHLORIDE 100 MMOL/L (98-107); CREATININE SERUM 0.95 MG/DL (0.60-1.30); GFR ESTIMATED 96; GLUCOSE 263 MG/DL (70-105); LIPASE 135 U/L (8-78); POTASSIUM 4.3 MMOL/L (3.6-5.0); SODIUM 135 MMOL/L (135-145); TOTAL PROTEIN 6.5 GM/DL (6.4-8.2)
[2023-01-08] MEDS ORDERED: NS 100 ML (IVPB) BAG IV ONE (19:30)
[2023-01-08] MEDS ORDERED: IOHEXOL 350 MG/ML 100 ML (OMNIPAQUE 350) VIAL IV ONE (19:30)
[2023-01-08] MEDS ORDERED: HOLD METFORMIN - RECEIVED CONTRAST 20 ML VIAL IV SCH (19:30)
[2023-01-08] MEDS ORDERED: CATHETER FLUSH 10 ML SYR IV PRN (19:30)
--- NOTE | 2023-01-08 20:34 | Diagnostic Imaging Report ---
PROCEDURE: CT abdomen and pelvis with contrast. TECHNIQUE: Multiple contiguous axial images were obtained through the abdomen and pelvis after administration of intravenous contrast. Auto Exposure Controls were utilized during the CT exam to meet ALARA standards for radiation dose reduction. All CT scans use one or more of the following dose optimizing techniques: automated exposure control, MA and/or KvP adjustment based on patient size and exam type or iterative reconstruction. INDICATION: Abdominal pain. COMPARISON: 10/06/2022. FINDINGS: The lung bases clear. The gallbladder surgically absent. Postcholecystectomy mild biliary ectasia, stable. No radiodense biliary calculus. The pancreas, its duct and the peripancreatic fat are nonacute. There is no hydroureteronephrosis. The spleen and adrenals are negative. The aorta is patent, nonaneurysmal and nonacute. There is a fatty umbilical hernia, noninflamed. There is an air-containing normal appendix, nondilated. There is no diverticulitis. There are a few noninflamed sigmoid diverticula, chronic. The urinary bladder unremarkable. The prostate and seminal vesicles unremarkable. No ascites, abscess, hematoma or acute fluid collection. No pneumatosis or free gas. No focal inflammatory process. IMPRESSION: Stable CT abdomen and pelvis. Mild noninflamed diverticulosis. Tiny fatty umbilical hernia. No obstructive disease, inflammatory process or acute appearing abnormality identified. Dictated by: Dictated on workstation # [id number]
[2023-01-08 20:45] LABS: BILIRUBIN,URINE NEGATIVE (NEGATIVE); CLARITY,URINE CLEAR; COLOR,URINE YELLOW; GLUCOSE, URINE (UA) 3+ (NEGATIVE); KETONES,URINE NEGATIVE (NEGATIVE); LEUKOCYTE ESTERASE ,URINE NEGATIVE (NEGATIVE); NITRITE,URINE NEGATIVE (NEGATIVE); PH,URINE 6.5 (5-9); PROTEIN,URINE 3+ (NEGATIVE)
[2023-01-08 20:49] LABS: BACTERIA,URINE TRACE /HPF; RBC,URINE 25-50 /HPF
[2023-01-08 20:57] LABS: AMPHETAMINE SCREEN, URINE NEGATIVE (NEGATIVE); BARBITURATE SCREEN URINE NEGATIVE (NEGATIVE); BENZODIAZEPINES SCREEN URINE NEGATIVE (NEGATIVE); CANNABINOID SCREEN, URINE POSITIVE (NEGATIVE); COCAINE SCREEN URINE NEGATIVE (NEGATIVE); METHADONE STAT NEGATIVE (NEGATIVE); OPIATE SCREEN URINE NEGATIVE (NEGATIVE); OXYCODONE STAT NEGATIVE (NEGATIVE); PROPOXYPHENE STAT NEGATIVE (NEGATIVE); TRICYCLIC ANTIDEPRESSANTS SCRE NEGATIVE (NEGATIVE)
[2023-01-08 21:00] VITALS: BP 154/76
[2023-01-09] MEDS ORDERED: HYOS0.1283 SL (12:53)
[2023-01-09] MEDS ORDERED: DICY20TA PO (12:53)
== END 2023-01-08 21:00 | disposition home or self-care (01) ==
LOC: EDUNIT# 18:30 → ER FS 18:32
DX: K57.30 Diverticulosis of large intestine without perforation or abscess without bleeding (principal); F12.10 Cannabis abuse, uncomplicated; E11.9 Type 2 diabetes mellitus without complications; Z79.4 Long term (current) use of insulin
CPT/HCPCS: 36415; 74177; 80053; 80306; 80320; 81000; 82947; 83605; 83690; 85025

== ENCOUNTER 2023-01-09 11:03 | Emergency (ER) | payer MEDICAID ==
[~2023-01-09] VITALS: Ht 193 cm; Wt 81.6 kg
--- NOTE | 2023-01-09 11:15 | ED Abdominal Pain ---
General Stated Complaint: ABD PAIN History of Present Illness Date Seen by Provider: Jan 09, 2023 Time Seen by Provider: 11:11 Initial Comments 52-year-old male presents with abdominal pain. He reports that he has been having abdominal pain been going on for a week that is gotten progressively worse. Patient reports pain just Generalized and diffuse. He has multiple visits for this in the past she is associated with his marijuana use. Patient was seen yesterday for worsening of his abdominal pain. Yesterday had a extensi ve work-up including a CT abdomen pelvis that showed mild diverticulosis otherwise no acute process. Patient's labs were drawn and shows mild elevated lipase at 135 with normal AST ALT, normal lactate normal white count normal BMP. Patient presents today because he is continue to have pain. Allergies and Home Medications Allergies Coded Allergies: Penicillins (Unverified Adverse Reaction, Unknown, 07/22/19) Patient Home Medication List Home Medication List Reviewed: Yes Capsaicin (Capsaicin) 42.5 Gm Cream..g., 42.5 GM TP Q12H PRN for PAIN-SEVERE (8- 10) Prescribed by: SOUMYA CARRERO on 09/20/21 214 Chlorhexidine Gluconate (Hibiclens) 4 % Liquid, 118 ML TP Q12H Prescribed by: TREMAYNE ADAM on 01/05/23 1440 Ciprofloxacin HCl (Ciprofloxacin HCl) 500 Mg Tablet, 500 MG PO BID Prescribed by: ALYSIA GERARD on 12/18/21 1447 Dicyclomine HCl (Dicyclomine HCl) 20 Mg Tablet, 20 MG PO Q6H PRN for abdominal cramping/pain Prescribed by: ALYSIA GERARD on 11/08/21 2238 Dicyclomine HCl (Dicyclomine HCl) 20 Mg Tablet, 20 MG PO TID Prescribed by: TREMAYNE ADAM on 01/09/23 1253 Doxycycline Hyclate (Doxycycline Hyclate) 100 Mg Tablet, 100 MG PO BID Prescribed by: TREMAYNE ADAM on 01/05/23 1440 Hydrocodone/Acetaminophen (Hydrocodone-Acetamin 5-325 mg) 1 Each Tablet, 1 TAB PO Q4H PRN for PAIN-MODERATE (5-7) Prescribed by: ABEL PECK on 05/31/21 2325 Hydrocodone/Acetaminophen (Hydrocodone-Acetamin 5-325 mg) 1 Each Tablet, 1 TAB PO Q4H PRN for PAIN-SEVERE (8-10) Prescribed by: ALYSIA GERARD on 12/18/21 1447 Hydrocodone/Acetaminophen (Hydrocodone-Acetamin 10-325 mg) 10 Mg-325 Mg Tablet, 1 EACH PO Q4H PRN for PAIN-SEVERE (8-10) Prescribed by: ALYSIA GUZMANRT on 06/13/22 1226 Hydrocodone/Acetaminophen (Hydrocodone-Acetamin 10-325 mg) 10 Mg-325 Mg Tablet, 1 EACH PO Q6H PRN for PAIN-SEVERE (8-10) Prescribed by: ALYSIA GERARD on 09/29/22 1118 Hydrocodone/Acetaminophen (Hydrocodone-Acetamin 5-325 mg) 5 Mg-325 Mg Tablet, 1 TAB PO Q6H PRN for PAIN-MODERATE (5-7) Prescribed by: RONNY WALLACE on 10/20/22 1928 Hyoscyamine Sulfate (Levsin-Sl) 0.125 Mg Tab.subl, 0.125 MG SL Q8H Prescribed by: TREMAYNE ADAM on 01/09/23 1253 Ibuprofen (Ibuprofen) 800 Mg Tablet, 800 MG PO Q8H PRN for PAIN Prescribed by: ALYSIA GERARD on 06/13/22 1225 Ibuprofen (Ibuprofen) 800 Mg Tablet, 800 MG PO Q8H PRN for PAIN Prescribed by: ALYSIA GERARD on 09/29/22 1117 Insulin Determir (Levemir) 1,000 Units/10 Ml Soln, 14 UNITS SQ BID Prescribed by: Whitney Lange on 09/10/21 1613 Insulin Lispro (Insulin Lispro Kwikpen U-100) 100 Unit/1 Ml Insuln.pen, 5 UNIT SQ ACHS, (Reported) Entered as Reported by: Whitney Lange on 09/10/21 1632 Methocarbamol (Methocarbamol) 750 Mg Tablet, 1,500 MG PO Q8H PRN for MUSCLE SPASMS Prescribed by: ALYSIA GERARD on 06/13/22 1225 Metoclopramide HCl (Reglan) 10 Mg Tablet, 10 MG PO TID Prescribed by: ALAINA OLEARY on 09/13/21 1037 Metronidazole (Metronidazole) 500 Mg Tablet, 500 MG PO BID Prescribed by: ALYSIA GERARD on 12/18/21 1447 Mupirocin (Mupirocin) 2 % Oint...g., 0.5 GM TP BID Prescribed by: ALYSIA GERARD on 07/05/22 1247 Ondansetron (Ondansetron Odt) 4 Mg Tab.rapdis, 4 MG SL Q4H PRN for NAUSEA/VOMITING Prescribed by: RONNY WALLACE on 10/20/22 192 Ondansetron (Ondansetron Odt) 4 Mg Tab.rapdis, 4 MG PO Q6H PRN for NAUSEA/VOMITING Prescribed by: TREMAYNE ADAM on 01/05/23 1441 Oxycodone HCl/Acetaminophen (Percocet 7.5-325 mg Tablet) 1 Each Tablet, 1 TAB PO Q6H PRN for PAIN-MODERATE (5-7) Prescribed by: PURVI DAWSON on 01/08/21 1533 Promethazine HCl (Promethazine Tablet) 25 Mg Tablet, 25 MG PO Q6H PRN for NAUSEA/VOMITING Prescribed by: ALYSIA GERARD on 12/18/21 1447 Sulfamethoxazole/Trimethoprim (Bactrim Ds Tablet) 1 Each Tablet, 1 EACH PO BID Prescribed by: ALYSIA GERARD on 07/05/22 1247 Sulfamethoxazole/Trimethoprim (Bactrim Ds Tablet) 1 Each Tablet, 1 EACH PO BID Prescribed by: ALYSIA GERARD on 09/29/22 1117 Review of Systems Review of Systems Constitutional: No chills, No fever Respiratory: No Symptoms Reported Cardiovascular: Denies Chest Pain Gastrointestinal: Abdominal Pain, Nausea, Vomiting Genitourinary: No Symptoms Reported Musculoskeletal: no symptoms reported Skin: no symptoms reported Psychiatric/Neurological: No Symptoms Reported Endocrine: No Symptoms Reported Hematologic/Lymphatic: No Symptoms Reported Past Lqavnnz-Zqcjnj-Prviry Hx Immunizations Up To Date Tetanus Booster (TDap): Unknown First/Initial COVID19 Vaccinat: UNKNOWN DATE Second COVID19 Vaccination [place]: UNKNOWN DATE Third COVID19 Vaccination Date: 09/2021 Seasonal Allergies Seasonal Allergies: No Past Medical History Surgery/Hospitalization HX: Insulin dependent DM, Bipolar, Cassie fundoplication; Hep C +; left rib fx; Marijuana induced cyclic vomiting Surgeries: Yes (UGI, ? Heart Surgery per prior hx family, R lower leg lesion removed) Cardiac, Gallbladder Respiratory: Yes COPD Currently Using CPAP: No Currently Using BIPAP: No Cardiac: Yes (heart surgery at 16mo for hole in heart; [place] 4 months ago, Systolic CHF) Atrial Fibrillation, Cardiomyopathy, Heart Attack, Irregular Heartbeat Neurological: No Genitourinary: No Gastrointestinal: Yes (Gastritis, Duodenitis, frequent alcohol intake, Hep C) Hepatitis Musculoskeletal: Yes Fractures Endocrine: Yes (Refuses to monitor blood sugar and to use insulin) Diabetes, Insulin dep HEENT: No Cancer: No Psychosocial: Yes (polysubstance abuse ) Anxiety Integumentary: Yes (Hidradenitis Suppurative, frequent abscesses, necrotizing fasciitis) Blood Disorders: Yes (Hep C+) Adverse Reaction/Blood Tranf: No Family Medical History No Pertinent Family Hx Physical Exam Vital Signs Vital Signs - First Documented 01/09/23 11:10 Temp 36.1 Pulse 84 Resp 16 B/P (MAP) 137/85 (102) O2 Delivery Room Air Capillary Refill : Height/Weight/BMI Height: '" Weight: 192lbs. 4.0oz. 87.161451nd; 22.00 BMI Method: General Appearance: mild distress Respiratory: lungs clear, normal breath sounds Cardiovascular: normal peripheral pulses Gastrointestinal: soft; No distended, No guarding, No rebound; tenderness (Diffuse) Extremities: normal range of motion, non-tender Neurologic/Psychiatric: alert Procedures/Interventions Date of ETT Placement: Jul 23, 2019 Time of ETT Placement: 545 Progress/Results/Core Measures Results/Orders Lab Results Laboratory Tests Test 01/09/23 11:31 Range/Units White Blood Count 9.0 4.3-11.0 10^3/uL Red Blood Count 4.24 L 4.30-5.52 10^6/uL Hemoglobin 13.1 L 13.3-17.7 g/dL Hematocrit 37 L 40-54 % Mean Corpuscular Volume 88 80-99 fL Mean Corpuscular Hemoglobin 31 25-34 pg Mean Corpuscular Hemoglobin Concent 35 32-36 g/dL Red Cell Distribution Width 11.8 10.0-14.5 % Platelet Count 285 130-400 10^3/uL Mean Platelet Volume 9.6 9.0-12.2 fL Immature Granulocyte % (Auto) 0 % Neutrophils (%) (Auto) 79 H 42-75 % Lymphocytes (%) (Auto) 15 12-44 % Monocytes (%) (Auto) 5 0-12 % Eosinophils (%) (Auto) 0 0-10 % Basophils (%) (Auto) 1 0-10 % Neutrophils # (Auto) 7.1 1.8-7.8 10^3/uL Lymphocytes # (Auto) 1.3 1.0-4.0 10^3/uL Monocytes # (Auto) 0.5 0.0-1.0 10^3/uL Eosinophils # (Auto) 0.0 0.0-0.3 10^3/uL Basophils # (Auto) 0.1 0.0-0.1 10^3/uL Immature Granulocyte # (Auto) 0.0 0.0-0.1 10^3/uL Sodium Level 133 L 135-145 MMOL/L Potassium Level 4.6 3.6-5.0 MMOL/L Chloride Level 98 98-107 MMOL/L Carbon Dioxide Level 26 21-32 MMOL/L Anion Gap 9 5-14 MMOL/L Blood Urea Nitrogen 14 7-18 MG/DL Creatinine 0.95 0.60-1.30 MG/DL Estimat Glomerular Filtration Rate 96 BUN/Creatinine Ratio 15 Glucose Level 428 *H 70-105 MG/DL Calcium Level 9.0 8.5-10.1 MG/DL Corrected Calcium 9.6 8.5-10.1 MG/DL Total Bilirubin 0.3 0.1-1.0 MG/DL Aspartate Amino Transf (AST/SGOT) 25 5-34 U/L Alanine Aminotransferase (ALT/SGPT) 25 0-55 U/L Alkaline Phosphatase 105 40-136 U/L Total Protein 6.3 L 6.4-8.2 GM/DL Albumin 3.3 3.2-4.5 GM/DL Lipase 20 8-78 U/L My Orders Orders - ADAM,TREMAYNE L DO Cbc With Automated Diff (01/09/23 11:22) Comprehensive Metabolic Panel (01/09/23 11:22) Lipase (01/09/23 11:22) Ns Iv 1000 Ml (Sodium Chloride 0.9%) (01/09/23 11:22) Haloperidol Injection (Haldol Injectio (01/09/23 11:30) Diphenhydramine Injection (Benadryl Inje (01/09/23 11:30) Insulin (Regular) Human (Novolin R (Per (01/09/23 12:15) Hyoscyamine Sl Tablet (Levsin Sl Tablet) (01/09/23 12:30) Dicyclomine Injection (Bentyl Injection) (01/09/23 12:30) Medications Given in ED Current Medications Medications Dose Ordered Sig/Scarlett Route Start Time Stop Time Status Last Admin Dose Admin Dicyclomine HCl 20 mg ONCE ONCE IM 01/09/23 12:30 01/09/23 12:31 DC 01/09/23 12:38 20 MG Diphenhydramine HCl 50 mg ONCE ONCE IVP 01/09/23 11:30 01/09/23 11:31 DC 01/09/23 11:29 50 MG Haloperidol Lactate 5 mg ONCE ONCE IV 01/09/23 11:30 01/09/23 11:31 DC 01/09/23 11:30 5 MG Hyoscyamine Sulfate 0.125 mg ONCE ONCE PO 01/09/23 12:30 01/09/23 12:31 DC 01/09/23 12:38 0.125 MG Insulin Human Regular 10 unit ONCE ONCE IV 01/09/23 12:15 01/09/23 12:16 DC 01/09/23 12:38 10 UNIT Vital Signs/I&O 01/09/23 11:10 Temp 36.1 Pulse 84 Resp 16 B/P (MAP) 137/85 (102) O2 Delivery Room Air Progress Progress Note : Progress Note Patient's diagnostic studies and labs were ordered, reviewed and interpreted by me. They were compared with labs from yesterday and his previous labs. Patient CT result from yesterday was reviewed. Patient past medical history was reviewed. Patient has known chronic abdominal pain. Patient symptoms improved with Levsin and Bentyl. Patient will be prescribed a prescription for both. I discussed with him the need to follow-up with a primary care provider as he has had numerous negative studies in the ER. He would benefit from a GI consultation for further evaluation. Patient was stable and discharged Departure Impression Primary Impression: Abdominal pain, chronic, right lower quadrant Additional Impression: Uncontrolled diabetes mellitus Qualified Codes: E11.65 - Type 2 diabetes mellitus with hyperglycemia Disposition: 01 HOME, SELF-CARE Condition: Stable Departure-Patient Inst. Referrals: ZULMA HERRERA APRN (PCP) Primary Care Physician [facility] (Family) Primary Care Physician Patient Instructions: Severe Abdominal Pain, Adult (DC) Add. Discharge Instructions: Please follow-up with your primary care provider to help arrange a GI consultation to further evaluate your abdominal pain Scripts Dicyclomine HCl (Dicyclomine HCl) 20 Mg Tablet 20 MG PO TID, #60 TAB Prov: TREMAYNE ADAM DO 01/09/23 Hyoscyamine Sulfate (Levsin-Sl) 0.125 Mg Tab.subl 0.125 MG SL Q8H, #20 TAB 0 Refills Prov: TREMAYNE ADAM DO 01/09/23 TREMAYNE ADAM DO Jan 09, 2023 11:15
[2023-01-09] MEDS ORDERED: NS IV 1000 ML 1,000 ML IV STA (11:22)
[2023-01-09] MEDS ORDERED: diphenhydrAMINE 50 MG/ML INJ (BENADRYL) IVP ONE (11:30)
[2023-01-09] MEDS ORDERED: HALOPERIDOL 5 MG/ML (HALDOL) VIAL IV ONE (11:30)
[2023-01-09 11:37] LABS: BASOPHILS # (AUTO) 0.1 10^3/uL (0.0-0.1); BASOPHILS % (AUTO) 1 % (0-10); EOSINOPHILS % (AUTO) 0 % (0-10); HEMATOCRIT 37 % (40-54); HEMOGLOBIN 13.1 g/dL (13.3-17.7); LYMPHOCYTES # (AUTO) 1.3 10^3/uL (1.0-4.0); LYMPHOCYTES % (AUTO) 15 % (12-44); MEAN CORPUSCULAR HEMOGLOBIN 31 pg (25-34); MEAN CORPUSCULAR HGB CONC 35 g/dL (32-36); MEAN CORPUSCULAR VOLUME 88 fL (80-99); MEAN PLATELET VOLUME 9.6 fL (9.0-12.2); MONOCYTES # (AUTO) 0.5 10^3/uL (0.0-1.0); MONOCYTES % (AUTO) 5 % (0-12); NEUTROPHILS # (AUTO) 7.1 10^3/uL (1.8-7.8); NEUTROPHILS % (AUTO) 79 % (42-75); PLATELET COUNT 285 10^3/uL (130-400)
[2023-01-09 12:02] LABS: CREATININE SERUM 0.95 MG/DL (0.60-1.30); POTASSIUM 4.6 MMOL/L (3.6-5.0)
[2023-01-09 12:03] LABS: ALBUMIN 3.3 GM/DL (3.2-4.5); BILIRUBIN,TOTAL 0.3 MG/DL (0.1-1.0); TOTAL PROTEIN 6.3 GM/DL (6.4-8.2)
[2023-01-09] MEDS ORDERED: inSUlin (REGULAR) HUMAN 1 UNIT/0.01 ML (CHARGE PER UNIT) IV ONE (12:15)
[2023-01-09] MEDS ORDERED: HYOSCYAMINE 0.125 MG (LEVSIN) TAB PO ONE (12:30)
[2023-01-09] MEDS ORDERED: DICYCLOMINE 10 MG/ML (BENTYL) 2 ML AMP IM ONE (12:30)
[2023-01-09] MEDS ORDERED: HYOS0.1283 SL (12:53)
[2023-01-09] MEDS ORDERED: DICY20TA PO (12:53)
[2023-01-09 12:59] VITALS: BP 128/72
== END 2023-01-09 12:59 | disposition home or self-care (01) ==
LOC: EDUNIT# 11:03 → ER FS 11:05
DX: R10.31 Right lower quadrant pain (principal); G89.29 Other chronic pain; E11.9 Type 2 diabetes mellitus without complications; Z79.4 Long term (current) use of insulin; Z87.19 Personal history of other diseases of the digestive system
CPT/HCPCS: 36415; 80053; 83690; 85025; 99283

== ENCOUNTER 2023-01-09 20:01 | Emergency (ER) | payer MEDICAID ==
[~2023-01-09] VITALS: Ht 193 cm; Wt 81.6 kg
[~2023-01-09 20:01] MED LIST changes: +HYOS0.1283 SL
[2023-01-09] MEDS ORDERED: DICYCLOMINE 10 MG/ML (BENTYL) 2 ML AMP IM ONE (20:45)
[2023-01-09] MEDS ORDERED: KETOROLAC 30 MG/ML VIAL IM STA (20:45)
--- NOTE | 2023-01-09 20:53 | ED Abdominal Pain ---
General Chief Complaint: Abdominal/GI Problems Stated Complaint: STOMACH PAIN,NAUSEA, Nursing Triage Note: PATIENT STATES HE HAS BEEN SEEN HERE A COUPLE OF TIMES. STATES IS GIVEN MEDICINE WHILE HERE STARTS TO FEEL BETTER, THEN WHEN HE WAKWS UP THE PAIN IS BACK. PATIENT STATES HE HAS SOME MEDS PRESCRIBED BUT THEY DON'T HELP. History of Present Illness Date Seen by Provider: Jan 09, 2023 Time Seen by Provider: 20:25 Initial Comments Patient with chronic abdominal pain presents to the ER. Patient was seen yesterday by different provider and earlier today by me. Patient's had 9 CTs in the last 18-month to evaluate this chronic abdominal pain. Patient's last CT was 01/08/2023. That showed no acute findings. Patient is a known marijuana user and seems to be associated with his marijuana use. He does report that he has been off of it for 3 days however his pain has been going on for at least a week. Patient reports that when he gets the shots he seems to feel better but when he wakes up the pain has returned. He feels like the prescribed medicines are not working. Patient with chronic nausea and vomiting. Allergies and Home Medications Allergies Coded Allergies: Penicillins (Unverified Adverse Reaction, Unknown, 07/22/19) Patient Home Medication List Home Medication List Reviewed: Yes Capsaicin (Capsaicin) 42.5 Gm Cream..g., 42.5 GM TP Q12H PRN for PAIN-SEVERE (8- 10) Prescribed by: SOUMYA CARRERO on 09/20/21 214 Chlorhexidine Gluconate (Hibiclens) 4 % Liquid, 118 ML TP Q12H Prescribed by: TREMAYNE ADAM on 01/05/23 1440 Ciprofloxacin HCl (Ciprofloxacin HCl) 500 Mg Tablet, 500 MG PO BID Prescribed by: ALYSIA GERARD on 12/18/21 1447 Dicyclomine HCl (Dicyclomine HCl) 20 Mg Tablet, 20 MG PO Q6H PRN for abdominal cramping/pain Prescribed by: ALYSIA GERARD on 11/08/21 2238 Dicyclomine HCl (Dicyclomine HCl) 20 Mg Tablet, 20 MG PO TID Prescribed by: TREMAYNE ADAM on 01/09/23 1253 Doxycycline Hyclate (Doxycycline Hyclate) 100 Mg Tablet, 100 MG PO BID Prescribed by: TREMAYNE ADAM on 01/05/23 1440 Hydrocodone/Acetaminophen (Hydrocodone-Acetamin 5-325 mg) 1 Each Tablet, 1 TAB PO Q4H PRN for PAIN-MODERATE (5-7) Prescribed by: ABEL PECK on 05/31/21 2325 Hydrocodone/Acetaminophen (Hydrocodone-Acetamin 5-325 mg) 1 Each Tablet, 1 TAB PO Q4H PRN for PAIN-SEVERE (8-10) Prescribed by: ALYSIA GERARD on 12/18/21 1447 Hydrocodone/Acetaminophen (Hydrocodone-Acetamin 10-325 mg) 10 Mg-325 Mg Tablet, 1 EACH PO Q4H PRN for PAIN-SEVERE (8-10) Prescribed by: ALYSIA GERARD on 06/13/22 1226 Hydrocodone/Acetaminophen (Hydrocodone-Acetamin 10-325 mg) 10 Mg-325 Mg Tablet, 1 EACH PO Q6H PRN for PAIN-SEVERE (8-10) Prescribed by: ALYSIA GERARD on 09/29/22 1118 Hydrocodone/Acetaminophen (Hydrocodone-Acetamin 5-325 mg) 5 Mg-325 Mg Tablet, 1 TAB PO Q6H PRN for PAIN-MODERATE (5-7) Prescribed by: RONNY WALLACE on 10/20/22 1928 Hyoscyamine Sulfate (Levsin-Sl) 0.125 Mg Tab.subl, 0.125 MG SL Q8H Prescribed by: TREMAYNE ADAM on 01/09/23 1253 Ibuprofen (Ibuprofen) 800 Mg Tablet, 800 MG PO Q8H PRN for PAIN Prescribed by: ALYSIA GERARD on 06/13/22 1225 Ibuprofen (Ibuprofen) 800 Mg Tablet, 800 MG PO Q8H PRN for PAIN Prescribed by: ALYSIA GERARD on 09/29/22 1117 Insulin Determir (Levemir) 1,000 Units/10 Ml Soln, 14 UNITS SQ BID Prescribed by: Whitney Lange on 09/10/21 1613 Insulin Lispro (Insulin Lispro Kwikpen U-100) 100 Unit/1 Ml Insuln.pen, 5 UNIT SQ ACHS, (Reported) Entered as Reported by: Whitney Lange on 09/10/21 1632 Methocarbamol (Methocarbamol) 750 Mg Tablet, 1,500 MG PO Q8H PRN for MUSCLE SPASMS Prescribed by: ALYSIA GERARD on 06/13/22 1225 Metoclopramide HCl (Reglan) 10 Mg Tablet, 10 MG PO TID Prescribed by: ALAINA OLEARY on 09/13/21 1037 Metronidazole (Metronidazole) 500 Mg Tablet, 500 MG PO BID Prescribed by: ALYSIA GERARD on 12/18/21 1447 Mupirocin (Mupirocin) 2 % Oint...g., 0.5 GM TP BID Prescribed by: ALYSIA GERARD on 07/05/22 1247 Ondansetron (Ondansetron Odt) 4 Mg Tab.rapdis, 4 MG SL Q4H PRN for NAUSEA/VOMITING Prescribed by: RONNY WALLACE on 10/20/22 1927 Ondansetron (Ondansetron Odt) 4 Mg Tab.rapdis, 4 MG PO Q6H PRN for NAUSEA/VOMITING Prescribed by: TREMAYNE ADAM on 01/05/23 1441 Oxycodone HCl/Acetaminophen (Percocet 7.5-325 mg Tablet) 1 Each Tablet, 1 TAB PO Q6H PRN for PAIN-MODERATE (5-7) Prescribed by: PURVI DAWSON on 01/08/21 1533 Promethazine HCl (Promethazine Tablet) 25 Mg Tablet, 25 MG PO Q6H PRN for NAUSEA/VOMITING Prescribed by: ALYSIA GERARD on 12/18/21 1447 Sulfamethoxazole/Trimethoprim (Bactrim Ds Tablet) 1 Each Tablet, 1 EACH PO BID Prescribed by: ALYSIA GERARD on 07/05/22 1247 Sulfamethoxazole/Trimethoprim (Bactrim Ds Tablet) 1 Each Tablet, 1 EACH PO BID Prescribed by: ALYSIA GERARD on 09/29/22 1117 Review of Systems Review of Systems Constitutional: No chills, No fever EENTM: No Symptoms Reported Respiratory: No Symptoms Reported Cardiovascular: No Symptoms Reported Gastrointestinal: See HPI Genitourinary: No Symptoms Reported Musculoskeletal: no symptoms reported Skin: no symptoms reported Psychiatric/Neurological: No Symptoms Reported Past Boxbqan-Wcakla-Ersvfj Hx Immunizations Up To Date Tetanus Booster (TDap): Unknown First/Initial COVID19 Vaccinat: UNKNOWN DATE Second COVID19 Vaccination [place]: UNKNOWN DATE Third COVID19 Vaccination Date: 09/2021 Seasonal Allergies Seasonal Allergies: No Past Medical History Surgery/Hospitalization HX: Insulin dependent DM, Bipolar, Cassie fundoplication; Hep C +; left rib fx; Marijuana induced cyclic vomiting Surgeries: Yes (UGI, ? Heart Surgery per prior hx family, R lower leg lesion removed) Cardiac, Gallbladder Respiratory: Yes COPD Currently Using CPAP: No Currently Using BIPAP: No Cardiac: Yes (heart surgery at 16mo for hole in heart; [place] 4 [place] ago, Systolic CHF) Atrial Fibrillation, Cardiomyopathy, Heart Attack, Irregular Heartbeat Neurological: No Genitourinary: No Gastrointestinal: Yes (Gastritis, Duodenitis, frequent alcohol intake, Hep C) Hepatitis Musculoskeletal: Yes Fractures Endocrine: Yes (Refuses to monitor blood sugar and to use insulin) Diabetes, Insulin dep HEENT: No Cancer: No Psychosocial: Yes (polysubstance abuse ) Anxiety Integumentary: Yes (Hidradenitis Suppurative, frequent abscesses, necrotizing fasciitis) Blood Disorders: Yes (Hep C+) Adverse Reaction/Blood Tranf: No Family Medical History No Pertinent Family Hx Physical Exam Vital Signs Vital Signs - First Documented 01/09/23 20:09 Temp 36.9 Pulse 87 Resp 18 B/P (MAP) 134/84 (101) Pulse Ox 98 O2 Delivery Room Air Capillary Refill : Less Than 3 Seconds Height/Weight/BMI Height: '" Weight: 192lbs. 4.0oz. 87.991997lq; 21.00 BMI Method: General Appearance: other (Disheveled) Respiratory: chest non-tender, lungs clear Cardiovascular: normal peripheral pulses, regular rate, rhythm Neurologic/Psychiatric: alert, normal mood/affect, oriented x 3 Procedures/Interventions Date of ETT Placement: Jul 23, 2019 Time of ETT Placement: 545 Progress/Results/Core Measures Results/Orders My Orders Orders - ADAM,TREMAYNE L DO Abdomen Flat & Upright/Decub (01/09/23 20:12) Ketorolac Injection (Toradol Injection) (01/09/23 20:45) Dicyclomine Injection (Bentyl Injection) (01/09/23 20:45) Vital Signs/I&O 01/09/23 20:09 Temp 36.9 Pulse 87 Resp 18 B/P (MAP) 134/84 (101) Pulse Ox 98 O2 Delivery Room Air Blood Pressure Mean: 101 Progress Progress Note : Progress Note I reviewed multiple previous CT results from patient with no significant findings. I discussed with patient that I reviewed his medications and since 05/31/2021 to 01/08/2023 he has had 9 CTs of his abdomen for his chronic abdominal pain. Once again I discussed with him that he really needs to follow-up with a general surgeon or GI specialist for further evaluation. From the emergency room standpoint we do not have any further testing. I will give him a shot of Toradol and Bentyl to help ease the pain for tonight. I will provide him Dr. Marquez number general surgery at [facility] that he can call tomorrow to try to make an outpatient appointment to. I strongly discussed with him the need to make sure he keeps his diabetes under control. I also had a very strong discussion with him that he will need to stop his marijuana and it may take 30 to 45 days for it to help. Patient stable and discharged home. Departure Impression Primary Impression: Abdominal pain, chronic, bilateral lower quadrant Disposition: 01 HOME, SELF-CARE Condition: Stable Departure-Patient Inst. Referrals: ZULMA HERRERA APRN (PCP) Primary Care Physician [facility] (Family) Primary Care Physician Patient Instructions: How to Keep Track of Your Pain Add. Discharge Instructions: Please call Dr Marquez's office to arrange for outpt follow up. Office number [phone] All discharge instructions reviewed with patient and/or family. Voiced un derstanding. TREMAYNE ADAM DO Jan 09, 2023 20:53
[2023-01-09 21:04] VITALS: BP 134/84
--- NOTE | 2023-01-09 21:13 | Diagnostic Imaging Report ---
INDICATION: Pain. FINDINGS: Supine and upright abdominal films showed no air-fluid levels, pneumatosis, or free gas. No obstructive features. No abnormal fecal loading. IMPRESSION: No acute appearing abnormality. Dictated by: Dictated on workstation # [id number]
== END 2023-01-09 21:04 | disposition home or self-care (01) ==
LOC: EDUNIT# 20:01 → ER FS 20:03
DX: R10.31 Right lower quadrant pain (principal); R10.32 Left lower quadrant pain; G89.29 Other chronic pain; Z28.310 Unvaccinated for COVID-19
CPT/HCPCS: 74019

== ENCOUNTER 2023-03-02 15:11 | Inpatient (IN) | payer MEDICAID ==
[~2023-03-02] VITALS: Ht 193 cm; Wt 81.4 kg
[~2023-03-02 15:11] MED LIST changes: -INSU100I29 SQ; +INSU100I30 SQ
[2023-03-02] MEDS ORDERED: DROPERIDOL 5 MG/2 ML (INAPSINE) ED ONLY! IV STA (15:34)
[2023-03-02] MEDS ORDERED: PANTOPRAZOLE 40 MG (PROTONIX) VIAL IV STA (15:34)
[2023-03-02] MEDS ORDERED: fentaNYL INJ 100 MCG/2 ML AMP IVP STA ×2 (15:34→16:43)
[2023-03-02] MEDS ORDERED: KETOROLAC 15 MG/ML VIAL IVP STA (15:34)
[2023-03-02] MEDS ORDERED: LIDOCAINE 1% INJ 20 ML VIAL INJ STA (15:34)
[2023-03-02] MEDS ORDERED: VANCOMYCIN INJECTION 1,000 MG in NS (IVPB) 250 ML IV STA (15:42)
[2023-03-02] MEDS ORDERED: NS IV 1000 ML 1,000 ML IV ONE (15:45)
--- NOTE | 2023-03-02 15:48 | ED General ---
General Chief Complaint: Skin/Wound Problems Stated Complaint: BUMP ON HEAD,SORES ON BACK,SOB,FEVER,VOMITING,COUG Source of Information: Patient, Old Records Exam Limitations: Physical Impairments (short term memory loss due to history of TBI per patient) History of Present Illness Date Seen by Provider: Mar 02, 2023 Time Seen by Provider: 15:14 Initial Comments 52-year-old male presenting by private vehicle to the emergency department with complaints of recurrent nausea vomiting, sores on his scalp that he noticed last night when shaving his head, sore on his left upper shoulder area of the back that he noticed last night, shortness of breath with cough and chills. He felt like he has subjective fever but did not ever take his temperature. He just woke up this afternoon and came to the emergency department because of the pain and vomiting. He has not noticed any drainage from the sore on the back of his left shoulder. He does have a history of MRSA, hepatitis C, polysubstance abuse. He had a similar spot in October and ended up being transferred to [facility] for surgery to help manage the wound. He has a repetitive history of being noncompliant and having multiple ED visits for similar complai nts. Timing/Duration: 12-24 Hours Severity: Severe Modifying Factors: worse with Movement (movement and palpation make the spot on back of his left shoulder more painful) Associated Systoms: No Chest Pain; Cough; No Diaphoresis; Fever/Chills (subjective); No Loss of Appetite, No Malaise; Nausea/Vomiting; No Rash, No Seizure; Shortness of Air; No Syncope; Weakness Allergies and Home Medications Allergies Coded Allergies: Penicillins (Unverified Adverse Reaction, Unknown, 07/22/19) Patient Home Medication List Home Medication List Reviewed: Yes Insulin Determir (Levemir) 1,000 Units/10 Ml Soln, 14 UNITS SQ BID Prescribed by: Whitney Lange on 09/10/21 1613 Discontinued Medications Capsaicin (Capsaicin) 42.5 Gm Cream..g., 42.5 GM TP Q12H PRN for PAIN-SEVERE (8- 10) Prescribed by: SOUMYA CARRERO on 09/20/212146 Last Action: Discontinued Chlorhexidine Gluconate (Hibiclens) 4 % Liquid, 118 ML TP Q12H Prescribed by: TREMAYNE ADAM on 01/05/23 1440 Last Action: Discontinued Ciprofloxacin HCl (Ciprofloxacin HCl) 500 Mg Tablet, 500 MG PO BID Prescribed by: ALYSIA GERARD on 12/18/21 1447 Last Action: Discontinued Dicyclomine HCl (Dicyclomine HCl) 20 Mg Tablet, 20 MG PO Q6H PRN for abdominal cramping/pain Prescribed by: ALYSIA GERARD on 11/08/21 2238 Last Action: Discontinued Dicyclomine HCl (Dicyclomine HCl) 20 Mg Tablet, 20 MG PO TID Prescribed by: TREMAYNE ADAM on 01/09/23 1253 Last Action: Discontinued Doxycycline Hyclate (Doxycycline Hyclate) 100 Mg Tablet, 100 MG PO BID Prescribed by: TREMAYNE ADAM on 01/05/23 1440 Last Action: Discontinued Hydrocodone/Acetaminophen (Hydrocodone-Acetamin 5-325 mg) 1 Each Tablet, 1 TAB PO Q4H PRN for PAIN-MODERATE (5-7) Prescribed by: ABEL PECK on 05/31/21 2325 Last Action: Discontinued Hydrocodone/Acetaminophen (Hydrocodone-Acetamin 5-325 mg) 1 Each Tablet, 1 TAB PO Q4H PRN for PAIN-SEVERE (8-10) Prescribed by: ALYSIA GERARD on 12/18/21 1447 Last Action: Discontinued Hydrocodone/Acetaminophen (Hydrocodone-Acetamin 10-325 mg) 10 Mg-325 Mg Tablet, 1 EACH PO Q4H PRN for PAIN-SEVERE (8-10) Prescribed by: ALYSIA GERARD on 06/13/22 1226 Last Action: Discontinued Hydrocodone/Acetaminophen (Hydrocodone-Acetamin 10-325 mg) 10 Mg-325 Mg Tablet, 1 EACH PO Q6H PRN for PAIN-SEVERE (8-10) Prescribed by: ALYSIA GERARD on 09/29/22 1118 Last Action: Discontinued Hydrocodone/Acetaminophen (Hydrocodone-Acetamin 5-325 mg) 5 Mg-325 Mg Tablet, 1 TAB PO Q6H PRN for PAIN-MODERATE (5-7) Prescribed by: RONNY WALLACE on 10/20/22 1928 Last Action: Discontinued Hyoscyamine Sulfate (Levsin-Sl) 0.125 Mg Tab.subl, 0.125 MG SL Q8H Prescribed by: TREMAYNE ADAM on 01/09/23 1253 Last Action: Discontinued Ibuprofen (Ibuprofen) 800 Mg Tablet, 800 MG PO Q8H PRN for PAIN Prescribed by: ALYSIA GERARD on 06/13/22 1225 Last Action: Discontinued Ibuprofen (Ibuprofen) 800 Mg Tablet, 800 MG PO Q8H PRN for PAIN Prescribed by: ALYSIA GERARD on 09/29/22 1117 Last Action: Discontinued Insulin Lispro (Insulin Lispro Kwikpen U-100) 100 Unit/1 Ml Insuln.pen, 5 UNIT SQ ACHS, (Reported) Entered as Reported by: Whitney Lange on 09/10/21 1632 Last Action: Discontinued Methocarbamol (Methocarbamol) 750 Mg Tablet, 1,500 MG PO Q8H PRN for MUSCLE S PASMS Prescribed by: ALYSIA GERARD on 06/13/22 1225 Last Action: Discontinued Metoclopramide HCl (Reglan) 10 Mg Tablet, 10 MG PO TID Prescribed by: ALAINA OLEARY on 09/13/21 1037 Last Action: Discontinued Metronidazole (Metronidazole) 500 Mg Tablet, 500 MG PO BID Prescribed by: ALYSIA GERARD on 12/18/21 1447 Last Action: Discontinued Mupirocin (Mupirocin) 2 % Oint...g., 0.5 GM TP BID Prescribed by: ALYSIA GERARD on 07/05/22 1247 Last Action: Discontinued Ondansetron (Ondansetron Odt) 4 Mg Tab.rapdis, 4 MG SL Q4H PRN for NAUSEA/VOMITING Prescribed by: RONNY WALLACE on 10/20/22 1927 Last Action: Discontinued Ondansetron (Ondansetron Odt) 4 Mg Tab.rapdis, 4 MG PO Q6H PRN for NAUSEA/VOMITING Prescribed by: TREMAYNE ADAM on 01/05/23 1441 Last Action: Discontinued Oxycodone HCl/Acetaminophen (Percocet 7.5-325 mg Tablet) 1 Each Tablet, 1 TAB PO Q6H PRN for PAIN-MODERATE (5-7) Prescribed by: PURVI DAWSON on 01/08/21 1533 Last Action: Discontinued Promethazine HCl (Promethazine Tablet) 25 Mg Tablet, 25 MG PO Q6H PRN for NAUSEA/VOMITING Prescribed by: ALYSIA GERARD on 12/18/21 1447 Last Action: Discontinued Sulfamethoxazole/Trimethoprim (Bactrim Ds Tablet) 1 Each Tablet, 1 EACH PO BID Prescribed by: ALYSIA GERARD on 07/05/22 1247 Last Action: Discontinued Sulfamethoxazole/Trimethoprim (Bactrim Ds Tablet) 1 Each Tablet, 1 EACH PO BID Prescribed by: ALYSIA GERARD on 09/29/22 1117 Last Action: Discontinued Review of Systems Review of Systems Constitutional: see HPI EENTM: no symptoms reported Respiratory: see HPI Cardiovascular: no symptoms reported Gastrointestinal: see HPI Genitourinary: no symptoms reported Musculoskeletal: see HPI Skin: see HPI Psychiatric/Neurological: Anxiety Past Aodemvp-Rxxwut-Zxhcyr Hx Patient Social History Tobacco Use?: Yes Smoking Status: Never a Smoker Smokeless Tobacco Frequency: Never a User Use of E-Cig and/or Vaping dev: No Substance use?: Yes Substance type: Methamphetamine, Marijuana Substance frequency: Daily Alcohol Use?: No Pt feels they are or have been: No Immunizations Up To Date Tetanus Booster (TDap): Unknown First/Initial COVID19 Vaccinat: UNKNOWN DATE Second COVID19 Vaccination [place]: UNKNOWN DATE Third COVID19 Vaccination Date: 09/2021 Seasonal Allergies Seasonal Allergies: No Past Medical History Surgery/Hospitalization HX: Insulin dependent DM, Bipolar, Cassie fundoplication; Hep C +; left rib fx; Marijuana induced cyclic vomiting Surgeries: Yes (UGI, ? Heart Surgery per prior hx family, R lower leg lesion removed) Cardiac, Gallbladder Respiratory: Yes COPD Currently Using CPAP: No Currently Using BIPAP: No Cardiac: Yes (heart surgery at 16mo for hole in heart; [place] 4 months ago, Systolic CHF) Atrial Fibrillation, Cardiomyopathy, Heart Attack, Irregular Heartbeat Neurological: No Genitourinary: No Gastrointestinal: Yes (Gastritis, Duodenitis, frequent alcohol intake, Hep C) Hepatitis Musculoskeletal: Yes Fractures Endocrine: Yes (Refuses to monitor blood sugar and to use insulin) Diabetes, Insulin dep HEENT: No Cancer: No Psychosocial: Yes (polysubstance abuse ) Anxiety Integumentary: Yes (Hidradenitis Suppurative, frequent abscesses, necrotizing fasciitis) Blood Disorders: Yes (Hep C+) Adverse Reaction/Blood Tranf: No Family Medical History No Pertinent Family Hx Physical Exam Vital Signs Vital Signs - First Documented 03/02/23 03/02/23 15:16 17:14 Temp 37.1 Pulse 99 Resp 19 B/P (MAP) 113/77 (89) Pulse Ox 100 O2 Delivery Room Air Capillary Refill : Height, Weight, BMI Height: '" Weight: 192lbs. 4.0oz. [id number]; 21.00 BMI Method: General Appearance: Chronically ill, Mild Distress Neck: Full Range of Motion, Normal Inspection, Non Tender, Supple Respiratory: No Accessory Muscle Use, No Respiratory Distress, Decreased Breath Sounds Cardiovascular: Regular Rate, Rhythm, Normal Peripheral Pulses Gastrointestinal: Normal Bowel Sounds, No Pulsatile Mass, Soft; No Distended, No Guarding, No Rebound; Tenderness (epigastric and RUQ) Rectal: Deferred Extremity: Normal Capillary Refill Neurologic/Psychiatric: Alert, Oriented x3 Skin: Warm/Dry, Erythema (posterior left upper shoulder area with erythematous, indurated, tender, warm lesion with white pustules that appear ready to drain) Focused Exam Lactate Level 03/02/23 15:39: Lactic Acid Level 2.64*H Lactic Acid Level Laboratory Tests Test 03/02/23 15:39 Lactic Acid Level 2.64 MMOL/L (0.50-2.00) *H Procedures/Interventions I&D : Site: Posterior left upper shoulder on the back Blade Size: 11 I & D Procedure: betadine prep, sterile drapes applied, sterile dressing applied Progress After obtaining verbal consent from the patient the wound was cleaned with Betadine scrub soap. Then using 1% plain lidocaine a total of 1 mL was infiltrated for anesthetic effect. Using a #11 blade scalpel a single stab incision was made and he had bleeding from the wound. There is no purulent drainage. The wound culture swab was sent. Patient tolerated procedure well without any immediate complications. At clean dry sterile dressing was applied over the incision area. Date of ETT Placement: Jul 23, 2019 Time of ETT Placement: 05 Progress/Results/Core Measures Suspected Sepsis SIRS Temperature: Pulse: Respiratory Rate: Laboratory Tests 03/02/23 15:39: White Blood Count 21.1H Blood Pressure / Mean: 03/02/23 15:39: Lactic Acid Level 2.64*H Laboratory Tests 03/02/23 15:39: Creatinine 1.10, Platelet Count 320, Total Bilirubin 0.6 Results/Orders Lab Results Laboratory Tests Test 03/02/23 15:39 03/02/23 16:07 Range/Units White Blood Count 21.1 H 4.3-11.0 10^3/uL Red Blood Count 4.53 4.30-5.52 10^6/uL Hemoglobin 13.8 13.3-17.7 g/dL Hematocrit 41 40-54 % Mean Corpuscular Volume 90 80-99 fL Mean Corpuscular Hemoglobin 31 25-34 pg Mean Corpuscular Hemoglobin Concent 34 32-36 g/dL Red Cell Distribution Width 12.0 10.0-14.5 % Platelet Count 320 130-400 10^3/uL Mean Platelet Volume 10.1 9.0-12.2 fL Immature Granulocyte % (Auto) 1 % Neutrophils (%) (Auto) 78 H 42-75 % Lymphocytes (%) (Auto) 13 12-44 % Monocytes (%) (Auto) 7 0-12 % Eosinophils (%) (Auto) 0 0-10 % Basophils (%) (Auto) 0 0-10 % Neutrophils # (Auto) 16.6 H 1.8-7.8 10^3/uL Lymphocytes # (Auto) 2.8 1.0-4.0 10^3/uL Monocytes # (Auto) 1.6 H 0.0-1.0 10^3/uL Eosinophils # (Auto) 0.1 0.0-0.3 10^3/uL Basophils # (Auto) 0.1 0.0-0.1 10^3/uL Immature Granulocyte # (Auto) 0.1 0.0-0.1 10^3/uL Neutrophils % (Manual) 87 % Lymphocytes % (Manual) 5 % Monocytes % (Manual) 6 % Eosinophils % (Manual) 2 % Basophils % (Manual) 0 % Band Neutrophils 0 % Sodium Level 133 L 135-145 MMOL/L Potassium Level 4.1 3.6-5.0 MMOL/L Chloride Level 96 L 98-107 MMOL/L Carbon Dioxide Level 26 21-32 MMOL/L Anion Gap 11 5-14 MMOL/L Blood Urea Nitrogen 16 7-18 MG/DL Creatinine 1.10 0.60-1.30 MG/DL Estimat Glomerular Filtration Rate 81 BUN/Creatinine Ratio 15 Glucose Level 229 H 70-105 MG/DL Lactic Acid Level 2.64 *H 0.50-2.00 MMOL/L Calcium Level 9.1 8.5-10.1 MG/DL Corrected Calcium 9.4 8.5-10.1 MG/DL Total Bilirubin 0.6 0.1-1.0 MG/DL Aspartate Amino Transf (AST/SGOT) 12 5-34 U/L Alanine Aminotransferase (ALT/SGPT) 9 0-55 U/L Alkaline Phosphatase 111 40-136 U/L C-Reactive Protein 8.71 H <0.50 MG/DL Total Protein 7.1 6.4-8.2 GM/DL Albumin 3.6 3.2-4.5 GM/DL Lipase 94 H 8-78 U/L Urine Color YELLOW Urine Clarity CLEAR Urine pH 5.5 5-9 Urine Specific [place] >=1.030 1.016-1.022 Urine Protein 3+ H NEGATIVE Urine Glucose (UA) 3+ H NEGATIVE Urine Ketones TRACE H NEGATIVE Urine Nitrite NEGATIVE NEGATIVE Urine Bilirubin NEGATIVE NEGATIVE Urine Urobilinogen 0.2 < = 1.0 MG/DL Urine Leukocyte Esterase NEGATIVE NEGATIVE Urine RBC (Auto) 2+ H NEGATIVE Urine RBC 2-5 H /HPF Urine WBC 0-2 /HPF Urine Squamous Epithelial Cells NONE /HPF Urine Crystals NONE /LPF Urine Bacteria MODERATE H /HPF Urine Casts NONE /LPF Urine Mucus SMALL H /LPF Urine Culture Indicated NO My Orders Orders - ALYSIA GERARD MD Cbc With Automated Diff (03/02/23 15:31) Comprehensive Metabolic Panel (03/02/23 15:31) Blood Culture (03/02/23 15:31) Ua Culture If Indicated (03/02/23 15:31) Ed Iv/Invasive Line Start (03/02/23 15:31) Crp Fs (03/02/23 15:31) Lactic Acid Analyzer (03/02/23 15:31) Wound Culture (03/02/23 15:31) Lipase (03/02/23 15:31) Ns Iv 1000 Ml (Sodium Chloride 0.9%) (03/02/23 15:45) Lidocaine 1% Inj 20 Ml (Xylocaine 1% Inj (03/02/23 15:34) Droperidol Inj (Ed Only) (Inapsine Inj ( (03/02/23 15:34) Fentanyl Inj (Sublimaze Injection) (03/02/23 15:34) Ketorolac Injection (Toradol Injection) (03/02/23 15:34) Pantoprazole Injection (Protonix Injecti (03/02/23 15:34) Chest 1 View Ap/Pa Only (03/02/23 15:39) Vancomycin Injection (Vancomycin Injecti (03/02/23 15:42) Manual Differential (03/02/23 15:39) Fentanyl Inj (Sublimaze Injection) (03/02/23 16:43) Ed Admission (Communication) (03/02/23 16:48) Medications Given in ED Current Medications Medications Dose Ordered Sig/Scarlett Route Start Time Stop Time Status Last Admin Dose Admin Sodium Chloride 1,000 ml @ 999 mls/hr Q1H ONCE IV 03/02/23 15:45 03/02/23 16:45 DC 03/02/23 15:53 999 MLS/HR Vital Signs/I&O 03/02/23 03/02/23 15:16 17:14 Temp 37.1 36.9 Pulse 99 97 Resp 19 18 B/P (MAP) 113/77 (89) 154/86 Pulse Ox 100 O2 Delivery Room Air Room Air Capillary Refill : Progress Note #1: Progress Note Potential diagnosis of recurrent MRSA, DKA, sepsis, cyclic vomiting, electrolyte imbalance. Obtain peripheral IV access and check labs for complete blood count, comprehensive metabolic profile, CRP, blood cultures, lactic acid, lipase. Urinalysis to look for ketones. Administer normal saline 1 L IV fluid bolus for hydration, droperidol 2.5 mg IV for nausea and vomiting, pantoprazole 40 mg IV for epigastric pain and vomiting, Toradol 15 mg IV for pain and inflammation, fentanyl 50 mcg IV for severe pain, lidocaine infiltrated to the lesion on the left upper posterior shoulder prior to I&D. Chest x-ray to look for signs of infiltrate or effusion with him having cough. Progress Note #2: Progress Note Labs show an elevated white blood cell count of 21,000 with a left shift. His lactic acid was elevated to 2.64. His glucose was elevated to 255. His urinalysis was concentrated with elevated specific gravity greater than 1030 and trace ketones. His lipase was just slightly elevated at 94. His 1 view chest x-ray did not demonstrate any acute infiltrate or acute process. He is already getting vancomycin IV and will contact Dr. Valencia the on-call physician for [facility] inpatient service about admission and anticipate using the sepsis order set which would indicate meropenem and vancomycin for Penicillin allergic patients with diabetic soft tissue infection. He has sepsis but does not have severe sepsis or septic shock. His anion gap and CO2 were normal and not showing indication of DKA. I attempted an I&D to the lesion on the posterior aspect of his left upper shoulder on his back however I was not able to express any drainage. The area is very indurated and if it has only started in the last 24 hours like he was initially reporting then it may not be coalesced into an actual abscess or pus pocket yet. Will check with Dr. Valencia about possibly ordering an ultrasound to evaluate for an area that could be drained. After attempted I&D patient was complaining of increased pain so an additional dose of fentanyl 50 mcg was ordered IV. 1640 d/w Dr. Valencia for [facility] inpatient service and reviewed patient presentation as well as his abnormal labs of elevated white blood cell count with a left shift and lactic acid elevation. Dehydration with elevated specific gravity on his urinalysis. History of MRSA and prior surgical I&D for an abscess to his back in October 2022. He was seen at [facility] for that episode. He has recurrent episodes of nausea and vomiting with chronic abdominal pain with hepatitis C and marijuana abuse. She accepted the patient for admission with sepsis order sets and floor admit with stable vital signs. She agreed with ultrasound ordered to evaluate the lesion looking for an abscess or fluid collection. Diagnostic Imaging Diagonstic Imaging: Xray Plain Films/CT/US/NM/MRI: chest Comments NAME: LEONOR LAZARO [facility] REC#: [id number] PT STATUS: REG ER : 1970 PHYSICIAN: ALYSIA GERARD MD ADMIT DATE: 03/02/23/ER FS Draft Date of Exam:03/02/23 CHEST 1 VIEW AP/PA ONLY INDICATION: Cough and chills Frontal chest obtained at 3:39 p.m. Heart and mediastinal silhouette are normal in appearance. The lungs are clear. There is no pneumothorax or pleural fluid. IMPRESSION: Negative chest. Dictated on workstation # [id number] Dict: 03/02/23 1547 Trans: 03/02/23 1549 CVB [id number] Interpreted by: MISHEL MCMAHAN MD Electronically signed by: Reviewed: Reviewed by Me Departure Communication (Admissions) Time/Spoke to Admitting Phy: 16:40 1640 d/w Dr. Valencia for [facility] inpatient service and reviewed patient presentation as well as his abnormal labs of elevated white blood cell count with a left shift and lactic acid elevation. Dehydration with elevated specific gravity on his urinalysis. History of MRSA and prior surgical I&D for an abscess to his back in October 2022. He was seen at [facility] for that episode. He has recurrent episodes of nausea and vomiting with chronic abdominal pain with hepatitis C and marijuana abuse. She accepted the patient for admission with sepsis order sets and floor admit with stable vital signs. Impression Primary Impression: Sepsis Qualified Codes: A41.9 - Sepsis, unspecified organism Additional Impressions: Cutaneous abscess of left shoulder History of MRSA infection Nausea and vomiting in adult patient Dehydration Disposition: 30 STILL A PATIENT Condition: Stable Admissions Decision to Admit Reason: Admit from ER (General) Decision to Admit/Date: Mar 02, 2023 Time/Decision to Admit Time: 16:40 Departure-Patient Inst. Referrals: ZULMA HERRERA APRN (PCP) Primary Care Physician [facility] (Family) Primary Care Physician ALYSIA GERARD MD Mar 02, 2023 15:48
[2023-03-02 15:49] LABS: BASOPHILS # (AUTO) 0.1 10^3/uL (0.0-0.1); BASOPHILS % (AUTO) 0 % (0-10); EOSINOPHILS # (AUTO) 0.1 10^3/uL (0.0-0.3); EOSINOPHILS % (AUTO) 0 % (0-10); HEMATOCRIT 41 % (40-54); HEMOGLOBIN 13.8 g/dL (13.3-17.7); LYMPHOCYTES # (AUTO) 2.8 10^3/uL (1.0-4.0); LYMPHOCYTES % (AUTO) 13 % (12-44); MEAN CORPUSCULAR HEMOGLOBIN 31 pg (25-34); MEAN CORPUSCULAR HGB CONC 34 g/dL (32-36); MEAN CORPUSCULAR VOLUME 90 fL (80-99); MEAN PLATELET VOLUME 10.1 fL (9.0-12.2); MONOCYTES # (AUTO) 1.6 10^3/uL (0.0-1.0); MONOCYTES % (AUTO) 7 % (0-12); NEUTROPHILS # (AUTO) 16.6 10^3/uL (1.8-7.8); NEUTROPHILS % (AUTO) 78 % (42-75); PLATELET COUNT 320 10^3/uL (130-400); WHITE BLOOD COUNT 21.1 10^3/uL (4.3-11.0)
[2023-03-02 16:15] LABS: POTASSIUM 4.1 MMOL/L (3.6-5.0)
[2023-03-02 16:16] LABS: ALBUMIN 3.6 GM/DL (3.2-4.5); BILIRUBIN,TOTAL 0.6 MG/DL (0.1-1.0); CALCIUM 9.1 MG/DL (8.5-10.1); CREATININE SERUM 1.1 MG/DL (0.60-1.30); TOTAL PROTEIN 7.1 GM/DL (6.4-8.2)
[2023-03-02 16:17] LABS: BAND NEUTROPHILS 0 %; BASOPHILS % (MANUAL) 0 %; EOSINOPHILS % (MANUAL) 2 %; LYMPHOCYTES % (MANUAL) 5 %; MONOCYTES % (MANUAL) 6 %; NEUTROPHILS % (MANUAL) 87 %
[2023-03-02 16:22] LABS: BILIRUBIN,URINE NEGATIVE (NEGATIVE); CLARITY,URINE CLEAR; COLOR,URINE YELLOW; GLUCOSE, URINE (UA) 3+ (NEGATIVE); KETONES,URINE TRACE (NEGATIVE); LEUKOCYTE ESTERASE ,URINE NEGATIVE (NEGATIVE); NITRITE,URINE NEGATIVE (NEGATIVE); PH,URINE 5.5 (5-9); PROTEIN,URINE 3+ (NEGATIVE)
[2023-03-02 16:28] LABS: BACTERIA,URINE MODERATE /HPF; WBC,URINE 0-2 /HPF
[2023-03-02] MEDS ORDERED: ONDANSETRON 4 MG/2 ML (SDV) Z0FRAN IV PRN (18:45)
[2023-03-02] MEDS: NS IV 1000 ML 1,000 ML IV SCH (18:57)
[2023-03-02 19:25] VITALS: BP 157/72
[2023-03-02] MEDS ORDERED: VANCOMYCIN 750 MG/NS 250 ML IVPB IV NR ×2 (19:30)
[2023-03-02] MEDS: MEROPENEM 500 MG/NS 100 ML IVPB IV SCH ×2 (19:41)
[2023-03-02] MEDS: fentaNYL INJ 100 MCG/2 ML AMP IV PRN (19:42)
[2023-03-03] VITALS (7 sets, daily range): BP systolic 121–162; BP diastolic 61–85
[2023-03-03] MEDS: KETOROLAC 15 MG/ML VIAL IV PRN ×2 (00:18→18:09)
[2023-03-03] MEDS: NS IV 1000 ML 1,000 ML IV SCH ×4 (00:19→22:23)
[2023-03-03] MEDS: MEROPENEM 500 MG/NS 100 ML IVPB IV SCH ×6 (00:19→11:40)
[2023-03-03] MEDS ORDERED: ACETAMINOPHEN 325 MG TABLET PO PRN (01:00)
[2023-03-03] MEDS: VANCOMYCIN 1250 MG/NS 250 ML PREMIX IV SCH ×2 (06:21→17:45)
[2023-03-03] MEDS: fentaNYL INJ 100 MCG/2 ML AMP IV PRN ×5 (08:25→21:16)
[2023-03-03] MEDS ORDERED: PANTOPRAZOLE 40 MG (PROTONIX) VIAL IV SCH (09:00)
[2023-03-03] MEDS ORDERED: PATIENT MAY USE OWN MEDS, ALL MC SCH (10:15)
[2023-03-03] MEDS: PANTOPRAZOLE 40 MG (PROTONIX) TAB PO SCH (10:21)
--- NOTE | 2023-03-03 10:58 | History & Physical ---
HPI History of Present Illness: States he came to the hospital because he couldn't lay on his back starting the night before last, due to spot by the back of his shoulder. Denies fever prior to admission. Admits nausea, vomiting and constipation which he relates to medications. He has chronic shortness of breath. Also has a sore spot on head he noted a few days ago when shaving his head. Source: patient Date seen by provider: Mar 03, 2023 Time Seen by Provider: 10:55 Attending Physician Kirsten Rooney Aprn PCP Admitting Physician: Do Valencia MD Attending Physician: Do Valencia MD Consult Date of Admission Mar 02, 2023 at 18:00 Home Medications Home Medications Reviewed patient Home Medication Reconciliation performed by pharmacy medication reconciliations civilian technician and/or nursing. Patients Allergies have been reviewed. Allergies Coded Allergies: Penicillins (Unverified Adverse Reaction, Unknown, 07/22/19) QIJ-Unjiok-Okptad Hx Patient Social History Drug of Choice: "[place]", hx Meth on UDS Smoking Status: Current Everyday Smoker (1 ppd) 2nd Hand Smoke Exposure: Yes Sexual Abuse: No (history of, quit around 2017) Alcohol Use?: No Substance type: Methamphetamine (reports lasts use around 2011), Marijuana (rep orts last use 03/01/23) Have you traveled recently?: No Immunizations Up To Date Tetanus Booster (TDap): Unknown First/Initial COVID19 Vaccinat: UNKNOWN DATE Second COVID19 Vaccination [place]: UNKNOWN DATE Third COVID19 Vaccination Date: 09/2021 Past Medical History PMHx: Coronary artery disease States told he has had heart attack and stroke but he doesn't see it Hep C Bipolar disorder COPD HTN Diabetes SurgHx: Open heart surgery as a baby for hole in heart Necrotizing fasciitis right leg Family Medical History Significant Family History: No Pertinent Family Hx Review of Systems ([facility]) Constitutional: see HPI EENTM: No nose congestion, No throat pain Respiratory: short of breath Cardiovascular: No chest pain Gastrointestinal: see HPI; No abdominal pain Genitourinary: No dysuria Musculoskeletal: joint pain (chronic) Reviewed Test Results Reviewed Test Results Lab Laboratory Tests Test 03/02/23 15:39 03/02/23 16:07 03/02/23 19:09 03/02/23 21:15 Range/Units White Blood Count 21.1 H 4.3-11.0 10^3/uL Red Blood Count 4.53 4.30-5.52 10^6/uL Hemoglobin 13.8 13.3-17.7 g/dL Hematocrit 41 40-54 % Mean Corpuscular Volume 90 80-99 fL Mean Corpuscular Hemoglobin 31 25-34 pg Mean Corpuscular Hemoglobin Concent 34 32-36 g/dL Red Cell Distribution Width 12.0 10.0-14.5 % Platelet Count 320 130-400 10^3/uL Mean Platelet Volume 10.1 9.0-12.2 fL Immature Granulocyte % (Auto) 1 % Neutrophils (%) (Auto) 78 H 42-75 % Lymphocytes (%) (Auto) 13 12-44 % Monocytes (%) (Auto) 7 0-12 % Eosinophils (%) (Auto) 0 0-10 % Basophils (%) (Auto) 0 0-10 % Neutrophils # (Auto) 16.6 H 1.8-7.8 10^3/uL Lymphocytes # (Auto) 2.8 1.0-4.0 10^3/uL Monocytes # (Auto) 1.6 H 0.0-1.0 10^3/uL Eosinophils # (Auto) 0.1 0.0-0.3 10^3/uL Basophils # (Auto) 0.1 0.0-0.1 10^3/uL Immature Granulocyte # (Auto) 0.1 0.0-0.1 10^3/uL Neutrophils % (Manual) 87 % Lymphocytes % (Manual) 5 % Monocytes % (Manual) 6 % Eosinophils % (Manual) 2 % Basophils % (Manual) 0 % Band Neutrophils 0 % Sodium Level 133 L 135-145 MMOL/L Potassium Level 4.1 3.6-5.0 MMOL/L Chloride Level 96 L 98-107 MMOL/L Carbon Dioxide Level 26 21-32 MMOL/L Anion Gap 11 5-14 MMOL/L Blood Urea Nitrogen 16 7-18 MG/DL Creatinine 1.10 0.60-1.30 MG/DL Estimat Glomerular Filtration Rate 81 BUN/Creatinine Ratio 15 Glucose Level 229 H 70-105 MG/DL Lactic Acid Level 2.64 *H 2.18 *H 1.40 0.50-2.00 MMOL/L Calcium Level 9.1 8.5-10.1 MG/DL Corrected Calcium 9.4 8.5-10.1 MG/DL Total Bilirubin 0.6 0.1-1.0 MG/DL Aspartate Amino Transf (AST/SGOT) 12 5-34 U/L Alanine Aminotransferase (ALT/SGPT) 9 0-55 U/L Alkaline Phosphatase 111 40-136 U/L C-Reactive Protein 8.71 H <0.50 MG/DL Total Protein 7.1 6.4-8.2 GM/DL Albumin 3.6 3.2-4.5 GM/DL Lipase 94 H 8-78 U/L Urine Color YELLOW Urine Clarity CLEAR Urine pH 5.5 5-9 Urine Specific [place] >=1.030 1.016-1.022 Urine Protein 3+ H NEGATIVE Urine Glucose (UA) 3+ H NEGATIVE Urine Ketones TRACE H NEGATIVE Urine Nitrite NEGATIVE NEGATIVE Urine Bilirubin NEGATIVE NEGATIVE Urine Urobilinogen 0.2 < = 1.0 MG/DL Urine Leukocyte Esterase NEGATIVE NEGATIVE Urine RBC (Auto) 2+ H NEGATIVE Urine RBC 2-5 H /HPF Urine WBC 0-2 /HPF Urine Squamous Epithelial Cells NONE /HPF Urine Crystals NONE /LPF Urine Bacteria MODERATE H /HPF Urine Casts NONE /LPF Urine Mucus SMALL H /LPF Urine Culture Indicated NO Radiology 03/02/23 CXR unremarkable Physical Exam-([facility]C) Physical Exam Vital Signs VS - Last 72 Hours, by Label 03/02/23 03/02/23 03/02/23 03/02/23 15:16 17:14 18:34 19:25 Temp 37.1 36.9 36.7 Pulse 99 97 99 Resp 19 18 20 B/P (MAP) 113/77 (89) 154/86 157/72 (100) Pulse Ox 100 97 O2 Delivery Room Air Room Air Room Air Room Air 03/02/23 03/03/23 03/03/23 03/03/23 20:22 00:18 00:21 01:24 Temp 38.0 38.0 37.4 Pulse 88 Resp 20 B/P (MAP) 139/79 (99) Pulse Ox 94 97 O2 Delivery Room Air Room Air 03/03/23 03/03/23 03/03/23 03/03/23 03:57 03:59 04:29 05:11 Temp 38.6 38.1 37.9 37.7 Pulse 79 Resp 20 B/P (MAP) 121/61 (81) Pulse Ox 96 O2 Delivery Room Air 03/03/23 03/03/23 03/03/23 07:21 11:21 11:30 Temp 36.3 36.5 Pulse 95 89 Resp 18 18 B/P (MAP) 133/70 (91) 137/66 (89) Pulse Ox 97 98 O2 Delivery Room Air Room Air Room Air Capillary Refill : Less Than 3 Seconds General Appearance: no apparent distress Respiratory: lungs clear, normal breath sounds Cardiovascular: regular rate, rhythm, no murmur Gastrointestinal: normal bowel sounds, non tender, soft Neurologic/Psychiatric: alert, normal mood/affect Skin: other (erythematous area on left shoulder blade with central ulceration, indurated about 9 cm in diameter, sore on poterior head about 1.5 cm in diameter with ulcerated center no significant surrounding erythema) Assessment/Plan Assessment/Plan Admission Status: Inpatient Order (span 2 midnights) Reason for Inpatient Admission: sepsis (1) Sepsis Status: Acute Assessment & Plan: Secondary to cellulitis/abscess. Lactic acidosis resolved with IVF overnight. Qualifiers: Qualified Codes: A41.9 - Sepsis, unspecified organism (2) Cutaneous abscess of left shoulder Status: Acute Assessment & Plan: Minimal drainage with bedside I and D in ER. Ultrasound pending, Surgery consulted. Continue Vancomycin, d/c meropenem due to culture with staph so far. Has personal history of necrotizing fasciits, monitor closely. (3) Skin lesion of scalp Status: Acute Assessment & Plan: Multiple scabbed areas noted consistent with folliculitis, treatment for cellulitis as above. (4) History of MRSA infection Status: Chronic (5) Hepatitis C Status: Chronic Assessment & Plan: Resume home antiviral Qualifiers: (6) Type 2 diabetes mellitus Status: Chronic Assessment & Plan: Diabetic diet, sliding scale insulin, resume home long acting insulin Qualifiers: (7) History of atrial flutter Status: Chronic Assessment & Plan: Note of 07/2019 hospital stay when he was admitted with a flutter and acute systolic CHF, had cardioversion and had acute decompensation, transfer to discussed, but family pursued comfort goals and he was d/c on hospice at that time. (8) Nonischemic cardiomyopathy Status: Chronic (9) History of CHF (congestive heart failure) Assessment & Plan: Note of 07/2019 hospital stay when he was admitted with a flutter and acute systolic CHF, had cardioversion and had acute decompensation, transfer to discussed, but family pursued comfort goals and he was d/c on hospice at that time, last echo with EF 10% in 2019 at this facility. No sym ptoms of CHF currently. (10) DVT prophylaxis Status: Acute Assessment & Plan: Enoxaparin DO VALENCIA MD Mar 03, 2023 10:58
[2023-03-03] MEDS ORDERED: GLEC1TAB PO (11:06)
[2023-03-03] MEDS ORDERED: INSU100I88 SC (11:06)
[2023-03-03 14:03] LABS: BASOPHILS % (AUTO) 0 % (0-10); EOSINOPHILS % (AUTO) 0 % (0-10); HEMATOCRIT 34 % (40-54); HEMOGLOBIN 11.8 g/dL (13.3-17.7); LYMPHOCYTES # (AUTO) 1.4 10^3/uL (1.0-4.0); LYMPHOCYTES % (AUTO) 8 % (12-44); MEAN CORPUSCULAR HEMOGLOBIN 31 pg (25-34); MEAN CORPUSCULAR HGB CONC 35 g/dL (32-36); MEAN CORPUSCULAR VOLUME 90 fL (80-99); MEAN PLATELET VOLUME 10.1 fL (9.0-12.2); MONOCYTES # (AUTO) 1.5 10^3/uL (0.0-1.0); MONOCYTES % (AUTO) 8 % (0-12); NEUTROPHILS # (AUTO) 14.6 10^3/uL (1.8-7.8); NEUTROPHILS % (AUTO) 83 % (42-75); PLATELET COUNT 270 10^3/uL (130-400); WHITE BLOOD COUNT 17.6 10^3/uL (4.3-11.0)
[2023-03-03 14:13] LABS: ALBUMIN 3.2 GM/DL (3.2-4.5); POTASSIUM 4.5 MMOL/L (3.6-5.0)
[2023-03-03 14:15] LABS: CALCIUM 8.3 MG/DL (8.5-10.1)
[2023-03-03 14:16] LABS: TOTAL PROTEIN 6.5 GM/DL (6.4-8.2)
[2023-03-03 14:18] LABS: BILIRUBIN,TOTAL 0.7 MG/DL (0.1-1.0)
[2023-03-03 14:19] LABS: CREATININE SERUM 1.28 MG/DL (0.60-1.30)
--- NOTE | 2023-03-03 14:23 | Diagnostic Imaging Report ---
INDICATION: Soft tissue abscess. FINDINGS: Sonographic interrogation of the left posterior shoulder region was performed. No focal fluid collection or abscess is identified. No mass is detected. IMPRESSION: No sonographic abnormality is detected. Dictated by: Dictated on workstation # [id number]
[2023-03-03] MEDS ORDERED: LIDOCAINE/EPI 2% 1:200,00 (XYLOCAINE) 10 ML VIAL INJ NR (17:00)
[2023-03-03] MEDS: inSUlin ASPART (NovoLOG) 1 UNIT/0.01 ML (CHARGE PER UNIT) SC SCH ×2 (17:08→19:55)
[2023-03-03] MEDS: MAVYRET PO SCH (17:45)
[2023-03-03] MEDS ORDERED: [UNRECOGNIZED DRUG - OTHER] PO SCH (19:00)
[2023-03-03] MEDS: ENOXAPARIN 40 MG/0.4 ML (LOVENOX) SYR SC SCH (19:55)
--- NOTE | 2023-03-03 21:47 | Consultation - Surgery ---
History of Present Illness History of Present Illness Patient Consulted On(rae/time) 03/03/23 21:41 Date Seen by Provider: Mar 03, 2023 Time Seen by Provider: 15:30 History of Present Illness Consult requested by Dr. Valencia for abscess. Patient is a 52 year old male with area on back that he thinks has been there about a week. If the area is touched extreme pain. Nothing makes better. Has history of lots of skin infections. Went to ed and he states that they tried to cut it open a little. Having very scant pururlent drainage. Was having nausea and vomiting. Denies fever sweats chills shortness of breath or chest pain at this time. Allergies and Home Medications Allergies Coded Allergies: Penicillins (Unverified Adverse Reaction, Unknown, 07/22/19) Patient Home Medication List Home Medication List Reviewed: Yes Glecaprevir/Pibrentasvir (Mavyret 100-40 mg Tablet) 100 Mg-40 Mg Tablet, 3 EA PO 1800, (Reported) Entered as Reported by: LORETTA SALVADOR on 03/03/23 1106 Last Action: Converted Insulin Detemir (Levemir Flexpen) 100 Unit/Ml (3 Ml) Insuln.pen, 16 UNITS SC BID, (Reported) Entered as Reported by: LORETTA SALVADOR on 03/03/23 1106 Last Action: Converted Discontinued Medications Capsaicin (Capsaicin) 42.5 Gm Cream..g., 42.5 GM TP Q12H PRN for PAIN-SEVERE (8- 10) Prescribed by: SOUMYA CARRERO on 09/20/217 Last Action: Discontinued Chlorhexidine Gluconate (Hibiclens) 4 % Liquid, 118 ML TP Q12H Prescribed by: TREMAYNE ADAM on 01/05/23 1440 Last Action: Discontinued Ciprofloxacin HCl (Ciprofloxacin HCl) 500 Mg Tablet, 500 MG PO BID Prescribed by: ALYSIA GERARD on 12/18/21 1447 Last Action: Discontinued Dicyclomine HCl (Dicyclomine HCl) 20 Mg Tablet, 20 MG PO Q6H PRN for abdominal cramping/pain Prescribed by: ALYSIA GERARD on 11/08/218 Last Action: Discontinued Dicyclomine HCl (Dicyclomine HCl) 20 Mg Tablet, 20 MG PO TID Prescribed by: TREMAYNE ADAM on 01/09/23 1253 Last Action: Discontinued Doxycycline Hyclate (Doxycycline Hyclate) 100 Mg Tablet, 100 MG PO BID Prescribed by: TREMAYNE ADAM on 01/05/23 1440 Last Action: Discontinued Hydrocodone/Acetaminophen (Hydrocodone-Acetamin 5-325 mg) 1 Each Tablet, 1 TAB PO Q4H PRN for PAIN-MODERATE (5-7) Prescribed by: ABEL PECK on 05/31/21 2325 Last Action: Discontinued Hydrocodone/Acetaminophen (Hydrocodone-Acetamin 5-325 mg) 1 Each Tablet, 1 TAB PO Q4H PRN for PAIN-SEVERE (8-10) Prescribed by: ALYSIA GERARD on 12/18/21 1447 Last Action: Discontinued Hydrocodone/Acetaminophen (Hydrocodone-Acetamin 10-325 mg) 10 Mg-325 Mg Tablet, 1 EACH PO Q4H PRN for PAIN-SEVERE (8-10) Prescribed by: ALYSIA GERARD on 06/13/22 1226 Last Action: Discontinued Hydrocodone/Acetaminophen (Hydrocodone-Acetamin 10-325 mg) 10 Mg-325 Mg Tablet, 1 EACH PO Q6H PRN for PAIN-SEVERE (8-10) Prescribed by: ALYSIA GERARD on 09/29/22 1118 Last Action: Discontinued Hydrocodone/Acetaminophen (Hydrocodone-Acetamin 5-325 mg) 5 Mg-325 Mg Tablet, 1 TAB PO Q6H PRN for PAIN-MODERATE (5-7) Prescribed by: RONNY WALLACE on 10/20/22 1928 Last Action: Discontinued Hyoscyamine Sulfate (Levsin-Sl) 0.125 Mg Tab.subl, 0.125 MG SL Q8H Prescribed by: TREMAYNE ADAM on 01/09/23 1253 Last Action: Discontinued Ibuprofen (Ibuprofen) 800 Mg Tablet, 800 MG PO Q8H PRN for PAIN Prescribed by: ALYSIA GERARD on 06/13/22 1225 Last Action: Discontinued Ibuprofen (Ibuprofen) 800 Mg Tablet, 800 MG PO Q8H PRN for PAIN Prescribed by: ALYSIA GERARD on 09/29/22 1117 Last Action: Discontinued Insulin Determir (Levemir) 1,000 Units/10 Ml Soln, 14 UNITS SQ BID Discontinued Reason: Duplicate Order Prescribed by: Whitney Lange on 09/10/21 1613 Last Action: Discontinued Insulin Lispro (Insulin Lispro Kwikpen U-100) 100 Unit/1 Ml Insuln.pen, 5 UNIT SQ ACHS, (Reported) Entered as Reported by: Whitneysenia Lange on 09/10/21 1632 Last Action: Discontinued Methocarbamol (Methocarbamol) 750 Mg Tablet, 1,500 MG PO Q8H PRN for MUSCLE SPASMS Prescribed by: ALYSIA GERARD on 06/13/22 1225 Last Action: Discontinued Metoclopramide HCl (Reglan) 10 Mg Tablet, 10 MG PO TID Prescribed by: ALAINA OLEARY on 09/13/21 1037 Last Action: Discontinued Metronidazole (Metronidazole) 500 Mg Tablet, 500 MG PO BID Prescribed by: ALYSIA GERARD on 12/18/21 1447 Last Action: Discontinued Mupirocin (Mupirocin) 2 % Oint...g., 0.5 GM TP BID Prescribed by: ALYSIA GERARD on 07/05/22 1247 Last Action: Discontinued Ondansetron (Ondansetron Odt) 4 Mg Tab.rapdis, 4 MG SL Q4H PRN for NAUSEA/VOMITING Prescribed by: RONNY WALLACE on 10/20/22 1927 Last Action: Discontinued Ondansetron (Ondansetron Odt) 4 Mg Tab.rapdis, 4 MG PO Q6H PRN for N AUSEA/VOMITING Prescribed by: TREMAYNE ADAM on 01/05/23 1441 Last Action: Discontinued Oxycodone HCl/Acetaminophen (Percocet 7.5-325 mg Tablet) 1 Each Tablet, 1 TAB PO Q6H PRN for PAIN-MODERATE (5-7) Prescribed by: PURVI DAWSON on 01/08/21 1533 Last Action: Discontinued Promethazine HCl (Promethazine Tablet) 25 Mg Tablet, 25 MG PO Q6H PRN for NAUSEA/VOMITING Prescribed by: ALYSIA GERARD on 12/18/21 1447 Last Action: Discontinued Sulfamethoxazole/Trimethoprim (Bactrim Ds Tablet) 1 Each Tablet, 1 EACH PO BID Prescribed by: ALYSIA GERARD on 07/05/22 1247 Last Action: Discontinued Sulfamethoxazole/Trimethoprim (Bactrim Ds Tablet) 1 Each Tablet, 1 EACH PO BID Prescribed by: ALYSIA GERARD on 09/29/22 1117 Last Action: Discontinued Past Pqqzwra-Etfxsz-Xyvmfg Hx Patient Social History Drug of Choice: "[place]", hx Meth on UDS Smoking Status: Current Everyday Smoker (1 ppd) Type Used: Cigarettes 2nd Hand Smoke Exposure: Yes Sexual Abuse: No (history of, quit around 2017) Alcohol Use?: No Substance type: Methamphetamine (reports lasts use around 2011), Marijuana (reports last use 03/01/23) Have you traveled recently?: No Immunizations Up To Date Tetanus Booster (TDap): Unknown Seasonal Allergies Seasonal Allergies: No Surgeries History of Surgeries: Yes (UGI, ? Heart Surgery per prior hx family, R lower leg lesion removed) Surgeries: Cardiac, Gallbladder Respiratory History of Respiratory Disorde: Yes Respiratory Disorders: COPD Cardiovascular History of Cardiac Disorders: Yes (heart surgery at 16mo for hole in heart; [place] 4 months ago, Systolic CHF) Cardiac Disorders: Atrial Fibrillation, Cardiomyopathy, Heart Attack, Irregular Heartbeat Neurological History of Neurological Disord: No Genitourinary History of Genitourinary Disor: No Gastrointestinal History of Gastrointestinal Di: Yes (Gastritis, Duodenitis, frequent alcohol intake, Hep C) Gastrointestinal Disorders: Hepatitis Musculoskeletal History of Musculoskeletal Dis: Yes Musculoskeletal Disorders: Fractures Endocrine History of Endocrine Disorders: Yes (Refuses to monitor blood sugar and to use insulin) Endocrine Disorders: Diabetes, Insulin dep HEENT History of HEENT Disorders: No Cancer History of Cancer: No Psychosocial History of Psychiatric Problem: Yes (polysubstance abuse ) Behavioral Health Disorders: Anxiety Integumentary History of Skin or Integumenta: Yes (Hidradenitis Suppurative, frequent abscesses, necrotizing fasciitis) Blood Transfusions History of Blood Disorders: Yes (Hep C+) Adverse Reaction to a Blood Tr: No Reviewed Nursing Assessment Reviewed/Agree w Nursing PMH: Yes Family Medical History Significant Family History: No Pertinent Family Hx Review of Systems-General Constitutional: No chills, No diaphoresis EENTM: No blurred vision, No double vision Respiratory: No cough, No dyspnea on exertion Cardiovascular: No chest pain, No palpitations Gastrointestinal: nausea, vomiting Genitourinary: No decreased output, No discharge Musculoskeletal: No back pain, No joint pain Skin: No change in color, No change in hair/nails Psychiatric/Neurological: Denies Anxiety, Denies Depressed, Denies Emotional Problems All Other Systems Reviewed Negative Unless Noted: Yes (Negative excepted noted.) Physical Exam-General Problems Physical Exam Vital Signs Vital Signs - First Documented 03/02/23 03/02/23 15:16 17:14 Temp 37.1 Pulse 99 Resp 19 B/P (MAP) 113/77 (89) Pulse Ox 100 O2 Delivery Room Air Capillary Refill : Less Than 3 Seconds General Appearance: WD/WN, no apparent distress HEENT: PERRL/EOMI, normal ENT inspection Neck: non-tender, supple Respiratory: chest non-tender, no respiratory distress, no accessory muscle use Cardiovascular: regular rate, rhythm, no JVD Gastrointestinal: non tender, soft Rectal: deferred Back: other (abscess left upper back) Extremities: no pedal edema, no calf tenderness Neurologic/Psychiatric: alert, normal mood/affect, oriented x 3 Skin: other (multiple areas of skin wounds, left upper back with induration erythema and fluctuance with scant purulent drainage, tender to touch) Lymphatic: no adenopathy Data Review Labs Laboratory Tests 03/03/23 13:55: White Blood Count 17.6H, Red Blood Count 3.77L, Hemoglobin 11.8L, Hematocrit 34L , Mean Corpuscular Volume 90, Mean Corpuscular Hemoglobin 31, Mean Corpuscular Hemoglobin Concent 35, Red Cell Distribution Width 11.9, Platelet Count 270, Mean Platelet Volume 10.1, Immature Granulocyte % (Auto) 1, Neutrophils (%) (Auto) 83H, Lymphocytes (%) (Auto) 8L, Monocytes (%) (Auto) 8, Eosinophils (%) (Auto) 0, Basophils (%) (Auto) 0, Neutrophils # (Auto) 14.6H, Lymphocytes # (Auto) 1.4, Monocytes # (Auto) 1.5H, Eosinophils # (Auto) 0.0, Basophils # (Auto) 0.0, Immature Granulocyte # (Auto) 0.1, Sodium Level 135, Potassium Level 4.5, Chloride Level 103, Carbon Dioxide Level 21, Anion Gap 11, Blood Urea Nitrogen 23H, Creatinine 1.28, Estimat Glomerular Filtration Rate 67, BUN/Creatinine Ratio 18, Glucose Level 227H, Calcium Level 8.3L, Corrected Calcium 8.9, Total Bilirubin 0.7, Aspartate Amino Transf (AST/SGOT) 18, Alanine Aminotransferase (ALT/SGPT) 9, Alkaline Phosphatase 85, Total Protein 6.5, Albumin 3.2 03/03/23 17:06: Glucometer 185H 03/03/23 19:46: Glucometer 214H Microbiology 03/02/23 Blood Culture - Preliminary, Resulted No growth Assessment/Plan Assessment/Plan Assessment/Plan left upper back cellulitis abscess left upper back discussed need for incision and drainage, he understands and wishes to proceed. consent obtained. will need packed daily cultures obtained continue abx Procedure: incision and drainage 2.5 cm left upper back. Prepped and draped in sterile fashion, time out performed. 10 mL of 1 % lidocaine with epi used to anesthetize the area. 15 blade scalpel used to make incision over fluctuance through skin and subcutaneous tissue. Purulent material erupted. Culture obtained. Irrigated and packed with Iodoform gauze. Sterile bandage applied. Tolerated procedure well without difficulty. GLENN VANN DO Mar 03, 2023 21:47
[2023-03-04] MEDS: fentaNYL INJ 100 MCG/2 ML AMP IV PRN ×6 (00:23→21:17)
[2023-03-04 03:33] VITALS: BP 122/76
[2023-03-04] MEDS: NS IV 1000 ML 1,000 ML IV SCH ×2 (04:09→07:54)
[2023-03-04] MEDS: inSUlin ASPART (NovoLOG) 1 UNIT/0.01 ML (CHARGE PER UNIT) SC SCH ×4 (05:35→20:03)
[2023-03-04] MEDS: VANCOMYCIN 1250 MG/NS 250 ML PREMIX IV SCH ×2 (06:11→17:52)
--- NOTE | 2023-03-04 07:30 | Progress Note - Hospitalist ---
Subjective HPI/CC On Admission Date Seen by Provider: Mar 04, 2023 Time Seen by Provider: 11:00 Subjective/Events-last exam Doing well Improved wound IV abx maintained Review of Systems General: Fatigue, Malaise Focused Exam Lactate Level 03/02/23 15:39: Lactic Acid Level 2.64*H 03/02/23 19:09: Lactic Acid Level 2.18*H 03/02/23 21:15: Lactic Acid Level 1.40 Objective Exam Vital Signs Vital Signs Date Time Temp Pulse Resp B/P (MAP) Pulse Ox O2 Delivery O2 Flow Rate FiO2 03/04/23 11:43 36.4 72 18 140/66 (90) 95 Room Air Capillary Refill : Less Than 3 Seconds General Appearance: No Apparent Distress, WD/WN Respiratory: Lungs Clear Neurologic/Psychiatric: Alert, Oriented x3, No Motor/Sensory Deficits, Normal Mood/Affect Results/Procedures Lab Patient resulted labs reviewed. Assessment/Plan Assessment and Plan Assess & Plan/Chief Complaint Assessment: Sepsis Cellultis MRSA Left back abscess Plan: IV abx Wound dressing changes LORNA FARMER DO Mar 04, 2023 07:30
[2023-03-04] MEDS: PANTOPRAZOLE 40 MG (PROTONIX) TAB PO SCH (07:50)
[2023-03-04 07:51] VITALS: BP 133/62
[2023-03-04] MEDS: KETOROLAC 15 MG/ML VIAL IV PRN (07:51)
--- NOTE | 2023-03-04 08:10 | Progress Note - Surgery ---
TONI NAM 03/04/23 0810: Subjective Date Seen by a Provider: Mar 04, 2023 Time Seen by a Provider: 07:30 Subjective/Events-last exam S/p I&D of left shoulder abscess. Patient says he is in 10/10 pain but that is normal for him. His pain has improved in his left shoulder following the proce dure. He is ambulating in the halls with no assistance, voiding and having BMs normally. WBC has improved since admission, have not gotten repeat WBC count after procedure because patient is difficult to draw blood from. Review of Systems General: No Chills, No Night Sweats HEENT: Head Aches (said he always has one); No Visual Changes, No Dysphasia, No Sore Throat Pulmonary: No Dyspnea, No Cough Cardiovascular: No: Chest Pain, Palpitations Gastrointestinal: No: Nausea, Vomiting, Abdominal Pain Genitourinary: No Dysuria, No Frequency Musculoskeletal: other (pt says he has chronic pain "everywhere"), neck pain, shoulder pain, arm pain, back pain Neurological: No: Weakness, Numbness Focused Exam Lactate Level 03/02/23 15:39: Lactic Acid Level 2.64*H 03/02/23 19:09: Lactic Acid Level 2.18*H 03/02/23 21:15: Lactic Acid Level 1.40 Objective Exam Vital Signs Date Time Temp Pulse Resp B/P (MAP) Pulse Ox O2 Delivery O2 Flow Rate FiO2 03/04/23 07:51 36.8 75 20 133/62 (85) 98 Room Air 03/04/23 03:33 36.8 77 16 122/76 (91) 98 Room Air 03/03/23 23:58 36.7 87 16 147/82 (103) 97 Room Air 03/03/23 20:00 95 Room Air 03/03/23 19:42 36.7 84 20 155/85 (108) 96 Room Air 03/03/23 17:07 36.4 91 18 162/85 (110) 99 Room Air 03/03/23 11:30 36.5 89 18 137/66 (89) 98 Room Air 03/03/23 11:21 Room Air I & O 03/04/23 07:00 Intake Total 2160 ml Balance 2160 ml Capillary Refill : Less Than 3 Seconds General Appearance: Chronically ill, Mild Distress HEENT: PERRL/EOMI, Moist Mucous Membranes Neck: Non Tender, Supple Respiratory: No Accessory Muscle Use, No Respiratory Distress Cardiovascular: Regular Rate, Rhythm, No Murmur, Normal Peripheral Pulses Gastrointestinal: non tender, soft Extremity: Non Tender, No Calf Tenderness Neurologic/Psychiatric: Alert, Oriented x3 Skin: Warm/Dry, Erythema (left shoulder still bandaged following I&D, RN informed me this has not been changed, still packed underneath) Lymphatic: No Adenopathy Results Lab Laboratory Tests 03/03/23 13:55: White Blood Count 17.6H, Red Blood Count 3.77L, Hemoglobin 11.8L, Hematocrit 34L , Mean Corpuscular Volume 90, Mean Corpuscular Hemoglobin 31, Mean Corpuscular Hemoglobin Concent 35, Red Cell Distribution Width 11.9, Platelet Count 270, Mean Platelet Volume 10.1, Immature Granulocyte % (Auto) 1, Neutrophils (%) (Auto) 83H, Lymphocytes (%) (Auto) 8L, Monocytes (%) (Auto) 8, Eosinophils (%) (Auto) 0, Basophils (%) (Auto) 0, Neutrophils # (Auto) 14.6H, Lymphocytes # (Auto) 1.4, Monocytes # (Auto) 1.5H, Eosinophils # (Auto) 0.0, Basophils # (Auto) 0.0, Immature Granulocyte # (Auto) 0.1, Sodium Level 135, Potassium Level 4.5, Chloride Level 103, Carbon Dioxide Level 21, Anion Gap 11, Blood Urea Nitrogen 23H, Creatinine 1.28, Estimat Glomerular Filtration Rate 67, BUN/Creatinine Ratio 18, Glucose Level 227H, Calcium Level 8.3L, Corrected Calcium 8.9, Total Bilirubin 0.7, Aspartate Amino Transf (AST/SGOT) 18, Alanine Aminotransferase (ALT/SGPT) 9, Alkaline Phosphatase 85, Total Protein 6.5, Albumin 3.2 03/03/23 17:06: Glucometer 185H 03/03/23 19:46: Glucometer 214H 03/04/23 05:33: Glucometer 171H Microbiology 03/02/23 Blood Culture - Preliminary, Resulted No growth Assessment/Plan Assessment/Plan Assessment/Plan S/p I&D left upper back abscess Wound still bandaged, will take down and repack today Needs to be repacked daily cultures obtained from abscess, awaiting results continue abx DVT prophylaxis: Ambulation and lovenox, pt. refused last lovenox dose GLENN BONILLA DO 03/04/23 1528: Subjective Subjective/Events-last exam Patient still in pain, but the left should pain from abscess improving. Refusing to have blood drawn today. Had no new complaints. Feels the area is improving. Denies n/v fever sweats chills shortness of breath or chest pain. Objective Exam General Appearance: No Apparent Distress, Chronically ill HEENT: PERRL/EOMI, Moist Mucous Membranes Neck: Non Tender, Supple Respiratory: Chest Non Tender, No Accessory Muscle Use, No Respiratory Distress Cardiovascular: Regular Rate, Rhythm, No JVD Gastrointestinal: non tender, soft Extremity: Non Tender, No Calf Tenderness Neurologic/Psychiatric: Alert, Oriented x3 Skin: Warm/Dry, Erythema (left shoulder open wound, scant drainage, less induration and erythema), Other (multiple small skin wounds diffusely) Lymphatic: No Adenopathy Assessment/Plan Assessment/Plan Assessment/Plan S/p I&D left upper back abscess Dressing changed. Needs to be repacked daily cultures obtained from abscess, awaiting results continue abx DVT prophylaxis: Ambulation and lovenox, pt. refused last lovenox dose Supervisory-Addendum Brief Verification & Attestation Participated in pt care: history, MDM, physical Personally performed: exam, history, MDM, supervision of care Care discussed with: Medical Student Procedures: n/a Results interpretation: Verified all documentation Verification and Attestation of Medical Student E/M Service A medical student performed and documented this service in my presence. I reviewed and verified all information documented by the medical student and made modifications to such information, when appropriate. I personally performed the physical exam and medical decision making. Glenn Bonilla, Mar 04, 2023,15:28 TONI NAM Mar 04, 2023 08:10 GLENN BONILLA DO Mar 04, 2023 15:28
[2023-03-04 11:43] VITALS: BP 140/66
[2023-03-04] MEDS ORDERED: LACTULOSE SYRUP 10GM/15ML (ENULOSE) 30ML UDC PO ONE (12:00)
[2023-03-04] MEDS ORDERED: SENNA W/DOCUSATE (SENOKOT S) TABLET PO ONE (12:00)
[2023-03-04] MEDS: MAVYRET PO SCH (17:52)
[2023-03-04] MEDS: ENOXAPARIN 40 MG/0.4 ML (LOVENOX) SYR SC SCH (20:02)
[2023-03-04 21:00] VITALS: BP 168/78
[2023-03-04] MEDS: SENNA W/DOCUSATE (SENOKOT S) TABLET PO SCH (21:17)
[2023-03-04] MEDS: LACTULOSE SYRUP 10GM/15ML (ENULOSE) 30ML UDC PO SCH (21:19)
[2023-03-04 23:34] VITALS: BP 157/76
[2023-03-05 03:15] VITALS: BP 148/68
[2023-03-05] MEDS: inSUlin ASPART (NovoLOG) 1 UNIT/0.01 ML (CHARGE PER UNIT) SC SCH ×4 (05:40→21:15)
[2023-03-05] MEDS: VANCOMYCIN 1250 MG/NS 250 ML PREMIX IV SCH (06:17)
--- NOTE | 2023-03-05 06:17 | Progress Note - Hospitalist ---
Subjective HPI/CC On Admission Date Seen by Provider: Mar 05, 2023 Time Seen by Provider: 11:30 Subjective/Events-last exam Having nausea Phenergan was ordered Wound care at [place] tomorrow Review of Systems Gastrointestinal: Nausea Focused Exam Lactate Level 03/02/23 15:39: Lactic Acid Level 2.64*H 03/02/23 19:09: Lactic Acid Level 2.18*H 03/02/23 21:15: Lactic Acid Level 1.40 Objective Exam Vital Signs Vital Signs Date Time Temp Pulse Resp B/P (MAP) Pulse Ox O2 Delivery O2 Flow Rate FiO2 03/05/23 11:14 36.6 71 20 175/90 (118) 98 Room Air Capillary Refill : Less Than 3 Seconds General Appearance: No Apparent Distress, WD/WN, Chronically ill Respiratory: Lungs Clear, Normal Breath Sounds Cardiovascular: Regular Rate, Rhythm Neurologic/Psychiatric: Alert, Oriented x3, No Motor/Sensory Deficits, Normal Mood/Affect Results/Procedures Lab Laboratory Tests 03/05/23 08:05 Patient resulted labs reviewed. Assessment/Plan Assessment and Plan Assess & Plan/Chief Complaint Assessment: Sepsis Cellultis MRSA Left back abscess Plan: IV abx Wound dressing changes LORNA FARMER DO Mar 05, 2023 06:17
[2023-03-05] MEDS: PANTOPRAZOLE 40 MG (PROTONIX) TAB PO SCH (07:53)
[2023-03-05] MEDS: SENNA W/DOCUSATE (SENOKOT S) TABLET PO SCH ×2 (07:54→21:12)
[2023-03-05] MEDS: LACTULOSE SYRUP 10GM/15ML (ENULOSE) 30ML UDC PO SCH ×2 (07:54→21:12)
[2023-03-05] MEDS: fentaNYL INJ 100 MCG/2 ML AMP IV PRN ×5 (07:54→22:41)
[2023-03-05 08:17] LABS: BASOPHILS % (AUTO) 0 % (0-10); EOSINOPHILS # (AUTO) 0.2 10^3/uL (0.0-0.3); EOSINOPHILS % (AUTO) 3 % (0-10); HEMATOCRIT 30 % (40-54); HEMOGLOBIN 10.5 g/dL (13.3-17.7); LYMPHOCYTES # (AUTO) 1.7 10^3/uL (1.0-4.0); LYMPHOCYTES % (AUTO) 20 % (12-44); MEAN CORPUSCULAR HEMOGLOBIN 31 pg (25-34); MEAN CORPUSCULAR HGB CONC 36 g/dL (32-36); MEAN CORPUSCULAR VOLUME 88 fL (80-99); MEAN PLATELET VOLUME 10.1 fL (9.0-12.2); MONOCYTES # (AUTO) 0.8 10^3/uL (0.0-1.0); MONOCYTES % (AUTO) 10 % (0-12); NEUTROPHILS # (AUTO) 5.6 10^3/uL (1.8-7.8); NEUTROPHILS % (AUTO) 67 % (42-75); PLATELET COUNT 270 10^3/uL (130-400); WHITE BLOOD COUNT 8.3 10^3/uL (4.3-11.0)
[2023-03-05 08:21] VITALS: BP 173/83
[2023-03-05 08:21] LABS: ALBUMIN 2.6 GM/DL (3.2-4.5); POTASSIUM 3.9 MMOL/L (3.6-5.0)
[2023-03-05 08:22] LABS: CALCIUM 8.1 MG/DL (8.5-10.1)
[2023-03-05 08:23] LABS: TOTAL PROTEIN 5.5 GM/DL (6.4-8.2)
[2023-03-05 08:25] LABS: BILIRUBIN,TOTAL 0.5 MG/DL (0.1-1.0)
[2023-03-05 08:27] LABS: CREATININE SERUM 0.89 MG/DL (0.60-1.30)
[2023-03-05] MEDS: ONDANSETRON 4 MG/2 ML (SDV) Z0FRAN IV PRN ×3 (08:30→22:42)
--- NOTE | 2023-03-05 09:27 | Progress Note - Surgery ---
CECILYBRITTANY 03/05/23 0927: Subjective Date Seen by a Provider: Mar 05, 2023 Time Seen by a Provider: 08:40 Subjective/Events-last exam Patient in pain today that is normal for him, shoulder pain from abscess improving. He states he has abdominal pain and does not know when last BM was but is passing flatus. 2 BMs documented by nursing staff yesterday. Notes nausea but no vomiting, improves with zofran. He has not eaten today as he does not have an appetite. Notes SOB and CP that is chronic, denies changes or new SOB/CP. Denies fever/chills/sweats. Review of Systems General: No Chills, No Night Sweats, No Appetite HEENT: Head Aches (chronic); No Visual Changes Pulmonary: Dyspnea (normal for him); No Cough Cardiovascular: Chest Pain (chronic, no change); No: Palpitations Gastrointestinal: Nausea, Abdominal Pain; No: Vomiting Genitourinary: No Dysuria, No Frequency Musculoskeletal: No: neck pain, shoulder pain Neurological: No: Weakness, Numbness Focused Exam Lactate Level 03/02/23 15:39: Lactic Acid Level 2.64*H 03/02/23 19:09: Lactic Acid Level 2.18*H 03/02/23 21:15: Lactic Acid Level 1.40 Objective Exam Vital Signs Date Time Temp Pulse Resp B/P (MAP) Pulse Ox O2 Delivery O2 Flow Rate FiO2 03/05/23 08:21 36.1 77 20 173/83 (113) 99 Room Air 03/05/23 03:15 37.0 73 16 148/68 (94) 94 Room Air 03/04/23 23:34 37.0 75 16 157/76 (103) 97 Room Air 03/04/23 21:00 36.0 78 18 168/78 (108) 99 Room Air 03/04/23 20:31 95 Room Air 03/04/23 11:43 36.4 72 18 140/66 (90) 95 Room Air I & O 03/05/23 07:00 Intake Total 6850 ml Balance 6850 ml Capillary Refill : Less Than 3 Seconds General Appearance: No Apparent Distress (but appears uncomfortable), WD/WN HEENT: PERRL/EOMI, Moist Mucous Membranes Neck: Non Tender, Supple Respiratory: No Accessory Muscle Use, No Respiratory Distress Cardiovascular: Regular Rate, Rhythm, No Edema, No JVD Gastrointestinal: soft, tenderness (diffuse) Extremity: Non Tender, No Calf Tenderness Neurologic/Psychiatric: Alert, Oriented x3, No Motor/Sensory Deficits, Normal Mood/Affect Skin: Warm/Dry, Erythema (left shoulder wound with scant serosang drainage, less erythema), Other (multiple small skin wounds diffusely) Lymphatic: No Adenopathy Results Lab Laboratory Tests 03/04/23 10:32: Glucometer 101 03/04/23 17:17: Glucometer 117H 03/04/23 21:01: Glucometer 115H 03/05/23 05:34: Glucometer 242H 03/05/23 08:05: White Blood Count 8.3, Red Blood Count 3.36L, Hemoglobin 10.5L, Hematocrit 30L, Mean Corpuscular Volume 88, Mean Corpuscular Hemoglobin 31, Mean Corpuscular Hemoglobin Concent 36, Red Cell Distribution Width 11.7, Platelet Count 270, Mean Platelet Volume 10.1, Immature Granulocyte % (Auto) 0, Neutrophils (%) (Auto) 67, Lymphocytes (%) (Auto) 20, Monocytes (%) (Auto) 10, Eosinophils (%) (Auto) 3, Basophils (%) (Auto) 0, Neutrophils # (Auto) 5.6, Lymphocytes # (Auto) 1.7, Monocytes # (Auto) 0.8, Eosinophils # (Auto) 0.2, Basophils # (Auto) 0.0, Immature Granulocyte # (Auto) 0.0, Sodium Level 139, Potassium Level 3.9, Chloride Level 109H, Carbon Dioxide Level 20L, Anion Gap 10, Blood Urea Nitrogen 17, Creatinine 0.89, Estimat Glomerular Filtration Rate 103, BUN/Creatinine Ratio 19, Glucose Level 219H, Calcium Level 8.1L, Corrected Calcium 9.2, Total Bilirubin 0.5, Aspartate Amino Transf (AST/SGOT) 26, Alanine Aminotransferase (ALT/SGPT) 11, Alkaline Phosphatase 68, Total Protein 5.5L, Albumin 2.6L Microbiology 03/03/23 Gram Stain, Resulted Pending 03/03/23 Wound Culture - Preliminary, Resulted Staphylococcus aureus 03/02/23 Blood Culture - Preliminary, Resulted No growth Assessment/Plan Assessment/Plan Assessment/Plan S/p I&D left upper back abscess Dressing change today Needs to be repacked daily cultures obtained from abscess, awaiting final results-presumed MRSA continue abx continue antiemetics DVT prophylaxis: Ambulation and lovenox, pt. refused last lovenox dose GLENN BONILLA DO 03/05/23 1429: Subjective Subjective/Events-last exam Still in pain but back pain at wound continues to improve. WBC down. Still with some purulent drainage. Denies n/v fever sweats chills shortness of breath or chest pain. Objective Exam General Appearance: No Apparent Distress (but appears uncomfortable), WD/WN HEENT: PERRL/EOMI, Normal ENT Inspection Neck: Non Tender, Supple Respiratory: Chest Non Tender, No Accessory Muscle Use Cardiovascular: Regular Rate, Rhythm, No JVD Gastrointestinal: soft, tenderness (diffuse, minimal/chronic) Extremity: Non Tender, No Calf Tenderness Neurologic/Psychiatric: Alert, Oriented x3 Skin: Warm/Dry, Erythema (left shoulder wound with scant purulent drainage, less erythema/induration), Other (multiple small skin wounds diffusely) Lymphatic: No Adenopathy Assessment/Plan Assessment/Plan Assessment/Plan S/p I&D left upper back abscess Dressing change today Needs to be repacked daily-will need to arrange outpatient, patient states has no one to help him. cultures obtained from abscess, awaiting final results-presumed MRSA continue abx continue antiemetics DVT prophylaxis: Ambulation and lovenox, pt. refused Supervisory-Addendum Brief Verification & Attestation Participated in pt care: history, MDM, physical Personally performed: exam, history, MDM, supervision of care Care discussed with: Medical Student Procedures: n/a Results interpretation: Verified all documentation Verification and Attestation of Medical Student E/M Service A medical student performed and documented this service in my presence. I reviewed and verified all information documented by the medical student and made modifications to such information, when appropriate. I personally performed the physical exam and medical decision making. Glenn Bonilla, Mar 05, 2023,14:29 BRITTANY TONY Mar 05, 2023 09:27 GLENN BONILLA DO Mar 05, 2023 14:29
[2023-03-05 11:14] VITALS: BP 175/90
[2023-03-05] MEDS: KETOROLAC 15 MG/ML VIAL IV PRN ×2 (11:54→18:17)
[2023-03-05] MEDS ORDERED: amLODIPine 5 MG (NORVASC) TAB PO ONE (13:00)
[2023-03-05] MEDS: PROMETHAZINE INJ 25 MG/ML (PHENERGAN) AMP IM PRN ×2 (13:18→21:12)
[2023-03-05 16:00] VITALS: BP 184/84
[2023-03-05] MEDS: MAVYRET PO SCH (17:34)
[2023-03-05 19:55] VITALS: BP 154/72
[2023-03-05] MEDS: ENOXAPARIN 40 MG/0.4 ML (LOVENOX) SYR SC SCH (21:15)
[2023-03-05 23:19] VITALS: BP 150/76
[2023-03-06] MEDS: fentaNYL INJ 100 MCG/2 ML AMP IV PRN ×3 (01:00→11:55)
[2023-03-06] MEDS: KETOROLAC 15 MG/ML VIAL IV PRN (02:18)
[2023-03-06 03:38] VITALS: BP 141/70
[2023-03-06] MEDS: inSUlin ASPART (NovoLOG) 1 UNIT/0.01 ML (CHARGE PER UNIT) SC SCH ×2 (05:33→11:08)
[2023-03-06 07:23] VITALS: BP 136/86
[2023-03-06] MEDS: LACTULOSE SYRUP 10GM/15ML (ENULOSE) 30ML UDC PO SCH (08:11)
[2023-03-06] MEDS: PANTOPRAZOLE 40 MG (PROTONIX) TAB PO SCH (08:11)
[2023-03-06] MEDS: SENNA W/DOCUSATE (SENOKOT S) TABLET PO SCH (08:11)
[2023-03-06] MEDS ORDERED: amLODIPine 5 MG (NORVASC) TAB PO SCH (09:00)
[2023-03-06] MEDS ORDERED: AMLO-250 PO (10:41)
[2023-03-06] MEDS ORDERED: ACHD5005 PO (10:41)
[2023-03-06] MEDS ORDERED: PANT40TA52 PO (10:41)
--- NOTE | 2023-03-06 10:43 | Discharge Summary ---
Discharge Summary Hospital Course Was the Problem List Reviewed?: Yes Problems/Dx: (1) Cutaneous abscess of left shoulder Status: Acute Hospital Course Date of Admission: Mar 02, 2023 at 18:00 Admission Diagnosis : Family Physician/Provider: [place] Date of Discharge: 03/06/23 Discharge Diagnosis: [ ] Hospital Course: Lengthy course after admitted for cellulitis and Dr Bonilla performed I&D and dressing changed maintained and due to lack of help to change dressing his DC was delayed but wound care arrangements were made and he was DC after completing abx inpatient Labs and Pending Lab Test: Laboratory Tests 03/05/23 11:13: Glucometer 224H 03/05/23 15:54: Glucometer 218H 03/05/23 20:49: Glucometer 207H 03/06/23 05:30: Glucometer 215H Microbiology 03/03/23 Gram Stain - Final, Resulted 03/03/23 Wound Culture - Preliminary, Resulted Staphylococcus aureus Susceptibility To Follow 03/02/23 Blood Culture - Preliminary, Resulted No growth Home Meds Active Hydrocodone-Acetamin 5-325 mg (Hydrocodone/Acetaminophen) 5 Mg-325 Mg Tablet 1 Tab PO BID PRN Pantoprazole Sodium 40 Mg Tablet.dr 40 Mg PO DAILY Amlodipine Besylate 5 Mg Tablet 5 Mg PO DAILY Reported Levemir Flexpen (Insulin Detemir) 100 Unit/Ml (3 Ml) Insuln.pen 16 Units SC BID Mavyret 100-40 mg Tablet (Glecaprevir/Pibrentasvir) 100 Mg-40 Mg Tablet 3 Ea PO 1800 Assessment/Pt Instructions PCP and wound care this week Discharge Planning: <30 minutes discharge planning Discharge Instructions Discharge Diet: No Restrictions Discharge Physical Examination Vital Signs Vital Signs Date Time Temp Pulse Resp B/P (MAP) Pulse Ox O2 Delivery O2 Flow Rate FiO2 03/06/23 08:00 Room Air 03/06/23 07:23 36.9 70 18 136/86 (103) 98 General Appearance: No Apparent Distress, WD/WN Allergies: Coded Allergies: Penicillins (Unverified Adverse Reaction, Unknown, 07/22/19) Discharge Summary Date of Admission Mar 02, 2023 at 18:00 Date of Discharge Discharge Date: March 06, 2023 Discharge Diagnosis Assessment: Sepsis Cellultis MRSA Left back abscess Plan: IV abx Wound dressing changes LORNA FARMER DO March 06, 2023 10:43
--- NOTE | 2023-03-06 11:11 | Progress Note - Surgery ---
Subjective Date Seen by a Provider: March 06, 2023 Time Seen by a Provider: 08:25 Subjective/Events-last exam Back pain continues to improve. Tolerating dressing changes. Denies n/v fever sweats chills shortness of breath or chest pain. Objective Exam Vital Signs Date Time Temp Pulse Resp B/P (MAP) Pulse Ox O2 Delivery O2 Flow Rate FiO2 03/06/23 08:00 Room Air 03/06/23 07:23 36.9 70 18 136/86 (103) 98 Room Air 03/06/23 03:38 36.7 68 16 141/70 (93) 98 Room Air 03/05/23 23:19 36.8 86 16 150/76 (100) 96 Room Air 03/05/23 20:58 Room Air 03/05/23 19:55 36.8 71 18 154/72 (99) 98 Room Air 03/05/23 16:00 36.4 83 20 184/84 (117) 96 Room Air 03/05/23 11:14 36.6 71 20 175/90 (118) 98 Room Air I & O 03/06/23 07:00 Intake Total 1350 ml Balance 1350 ml Capillary Refill : Less Than 3 Seconds General Appearance: No Apparent Distress, WD/WN, Chronically ill HEENT: PERRL/EOMI, Normal ENT Inspection Neck: Non Tender, Supple Respiratory: Lungs Clear, Normal Breath Sounds Cardiovascular: Regular Rate, Rhythm Gastrointestinal: soft, tenderness (diffuse, minimal/chronic) Extremity: Non Tender, No Calf Tenderness Neurologic/Psychiatric: Alert, Oriented x3, No Motor/Sensory Deficits, Normal Mood/Affect Skin: Warm/Dry, Erythema (left shoulder wound with minimal drainage, less erythema/induration- improving), Other (multiple small skin wounds diffusely) Lymphatic: No Adenopathy Results Lab Laboratory Tests 03/05/23 11:13: Glucometer 224H 03/05/23 15:54: Glucometer 218H 03/05/23 20:49: Glucometer 207H 03/06/23 05:30: Glucometer 215H Microbiology 03/03/23 Gram Stain - Final, Resulted 03/03/23 Wound Culture - Preliminary, Resulted Staphylococcus aureus Susceptibility To Follow 03/02/23 Blood Culture - Preliminary, Resulted No growth Assessment/Plan Assessment/Plan Assessment/Plan S/p I&D left upper back abscess Dressing change today Needs to be repacked daily-will need to arrange outpatient, patient states has no one to help him. cultures obtained from abscess, MRSA continue abx continue antiemetics continues to improve GLENN VANN DO March 06, 2023 11:11
[2023-03-06 11:31] VITALS: BP 166/88
[2023-03-06 13:58] VITALS: BP 166/88
== END 2023-03-06 14:00 | disposition home or self-care (01) | DRG 872 ==
LOC: EDUNIT# 15:11 → ER FS 15:12 → 4TH 18:00
PROVIDERS: ADMIT Family Medicine; ATTEND Internal Medicine
PROC: 0J9F0ZZ Drainage of Left Upper Arm Subcutaneous Tissue and Fascia, Open Approach (ICD-10-PCS; principal; 2023-03-02)
DX: A41.9 Sepsis, unspecified organism (principal); L02.414 Cutaneous abscess of left upper limb; I50.22 Chronic systolic (congestive) heart failure; I48.92 Unspecified atrial flutter; I42.8 Other cardiomyopathies; L02.212 Cutaneous abscess of back [any part, except buttock and flank]; L03.312 Cellulitis of back [any part except buttock and flank]; Z79.4 Long term (current) use of insulin; Z79.899 Other long term (current) drug therapy; F15.90 Other stimulant use, unspecified, uncomplicated; F12.90 Cannabis use, unspecified, uncomplicated; J44.9 Chronic obstructive pulmonary disease, unspecified; I48.91 Unspecified atrial fibrillation; I25.2 Old myocardial infarction; E11.9 Type 2 diabetes mellitus without complications; F41.9 Anxiety disorder, unspecified; F31.9 Bipolar disorder, unspecified; E86.0 Dehydration; F17.210 Nicotine dependence, cigarettes, uncomplicated; I25.10 Atherosclerotic heart disease of native coronary artery without angina pectoris; B95.62 Methicillin resistant Staphylococcus aureus infection as the cause of diseases classified elsewhere
CPT/HCPCS: 36415; 71045; 76881; 80053; 81000; 82947; 83605; 83690; 85007; 85025; 85027; 86141; 87040; 87070; 87075; 87077; 87186; 87205; 96361; 96365; 96375; 96376

== ENCOUNTER 2023-03-08 21:56 | Emergency (ER) | payer MEDICAID ==
[~2023-03-08] VITALS: Ht 193 cm; Wt 88.6 kg
[~2023-03-08 21:56] MED LIST changes: +AMLO-250 PO; +GLEC1TAB PO; +INSU100I88 SC; +PANT40TA52 PO
[2023-03-08] MEDS ORDERED: KETOROLAC 15 MG/ML VIAL IVP STA (22:08)
[2023-03-08] MEDS ORDERED: PANTOPRAZOLE 40 MG (PROTONIX) VIAL IV STA (22:08)
[2023-03-08] MEDS ORDERED: LORazepam INJ 2 MG/ML (ATIVAN) VIAL IVP STA (22:08)
[2023-03-08] MEDS ORDERED: DROPERIDOL 5 MG/2 ML (INAPSINE) ED ONLY! IV STA (22:08)
[2023-03-08] MEDS ORDERED: fentaNYL INJ 100 MCG/2 ML AMP IVP STA (22:08)
[2023-03-08] MEDS ORDERED: NS IV 1000 ML 1,000 ML IV STA ×2 (22:08→23:24)
--- NOTE | 2023-03-08 22:18 | ED General ---
General Chief Complaint: General Problems/Pain Stated Complaint: NAUSEA,FEVER,COUGH,SOA Nursing Triage Note: Patient ambulatory to ER w c/o dry heaving, and can't eat. Patient states he was just discharged yesterday from the hospital and hasn't felt good since. Patient reports having fever and cold sweats. Source of Information: Patient, Old Records (notes from Hospitalist, Dr. Farmer, and Surgeon, Dr. Bonilla, from recent admit to [facility] with discharge on Tuesday 03/06) History of Present Illness Date Seen by Provider: March 08, 2023 Time Seen by Provider: 21:59 Initial Comments 52-year-old male presenting with complaints of dry heaving and that he cannot eat or drink anything. He reports being discharged from [facility] yesterday and has not felt good since. He has felt like he had fever and cold chills at home. He has not taken his temperature. He states that he has been able to keep his medications down. He is continually moaning and crying out intermittently. He denies any trauma or injury. He states that he was sleeping all day and then this evening when he woke up he was still feeling bad so he came to the emergency department. Timing/Duration: 1-2 Days Severity: Severe Modifying Factors: worse with Eating Associated Systoms: No Chest Pain, No Cough, No Diaphoresis; Fever/Chills (subjective), Loss of Appetite, Malaise, Nausea/Vomiting (dry heaves); No Syncope; Weakness Allergies and Home Medications Allergies Coded Allergies: Penicillins (Unverified Adverse Reaction, Unknown, 07/22/19) Patient Home Medication List Home Medication List Reviewed: Yes Amlodipine Besylate (Amlodipine Besylate) 5 Mg Tablet, 5 MG PO DAILY Prescribed by: LORNA FARMER on 03/06/23 1041 Glecaprevir/Pibrentasvir (Mavyret 100-40 mg Tablet) 100 Mg-40 Mg Tablet, 3 EA PO 1800, (Reported) Entered as Reported by: LORETTA SALVADOR on 03/03/23 1106 Hydrocodone/Acetaminophen (Hydrocodone-Acetamin 5-325 mg) 5 Mg-325 Mg Tablet, 1 TAB PO BID PRN for PAIN-MODERATE (5-7) Prescribed by: LORNA FARMER on 03/06/23 1042 Hydrocodone/Acetaminophen (Hydrocodone-Acetamin 10-325 mg) 10 Mg-325 Mg Tablet, 1 EACH PO Q6H PRN for PAIN SEVERE Prescribed by: ALYSIA GERARD on 03/08/23 2330 Insulin Detemir (Levemir Flexpen) 100 Unit/Ml (3 Ml) Insuln.pen, 16 UNITS SC BID, (Reported) Entered as Reported by: LORETTA SALVADOR on 03/03/23 1106 Ondansetron (Ondansetron Odt) 4 Mg Tab.rapdis, 4 MG PO Q6H PRN for NAUSEA/VOMITING Prescribed by: ALYSIA GERARD on 03/08/23 2329 Pantoprazole Sodium (Pantoprazole Sodium) 40 Mg Tablet.dr, 40 MG PO DAILY Prescribed by: LORNA FARMER on 03/06/23 1041 Discontinued Medications Capsaicin (Capsaicin) 42.5 Gm Cream..g., 42.5 GM TP Q12H PRN for PAIN-SEVERE (8- 10) Prescribed by: SOUMYA CARRERO on 09/20/21 2147 Chlorhexidine Gluconate (Hibiclens) 4 % Liquid, 118 ML TP Q12H Prescribed by: TREMAYNE ADAM on 01/05/23 1440 Ciprofloxacin HCl (Ciprofloxacin HCl) 500 Mg Tablet, 500 MG PO BID Prescribed by: ALYSIA GERARD on 12/18/21 1447 Dicyclomine HCl (Dicyclomine HCl) 20 Mg Tablet, 20 MG PO Q6H PRN for abdominal cramping/pain Prescribed by: ALYSIA GERARD on 11/08/21 2238 Dicyclomine HCl (Dicyclomine HCl) 20 Mg Tablet, 20 MG PO TID Prescribed by: TREMAYNE ADAM on 01/09/23 1253 Doxycycline Hyclate (Doxycycline Hyclate) 100 Mg Tablet, 100 MG PO BID Prescribed by: TREMAYNE ADAM on 01/05/23 1440 Hydrocodone/Acetaminophen (Hydrocodone-Acetamin 5-325 mg) 1 Each Tablet, 1 TAB PO Q4H PRN for PAIN-MODERATE (5-7) Prescribed by: ABEL PECK on 05/31/21 2325 Hydrocodone/Acetaminophen (Hydrocodone-Acetamin 5-325 mg) 1 Each Tablet, 1 TAB PO Q4H PRN for PAIN-SEVERE (8-10) Prescribed by: ALYSIA GERARD on 12/18/21 1447 Hydrocodone/Acetaminophen (Hydrocodone-Acetamin 10-325 mg) 10 Mg-325 Mg Tablet, 1 EACH PO Q4H PRN for PAIN-SEVERE (8-10) Prescribed by: ALYSIA GERARD on 06/13/22 1226 Hydrocodone/Acetaminophen (Hydrocodone-Acetamin 10-325 mg) 10 Mg-325 Mg Tablet, 1 EACH PO Q6H PRN for PAIN-SEVERE (8-10) Prescribed by: ALYSIA GERARD on 09/29/22 1118 Hydrocodone/Acetaminophen (Hydrocodone-Acetamin 5-325 mg) 5 Mg-325 Mg Tablet, 1 TAB PO Q6H PRN for PAIN-MODERATE (5-7) Prescribed by: RONNY WALLACE on 10/20/22 1928 Hyoscyamine Sulfate (Levsin-Sl) 0.125 Mg Tab.subl, 0.125 MG SL Q8H Prescribed by: TREMAYNE ADAM on 01/09/23 1253 Ibuprofen (Ibuprofen) 800 Mg Tablet, 800 MG PO Q8H PRN for PAIN Prescribed by: ALYSIA GERARD on 06/13/22 1225 Ibuprofen (Ibuprofen) 800 Mg Tablet, 800 MG PO Q8H PRN for PAIN Prescribed by: ALYSIA GERARD on 09/29/22 1117 Insulin Determir (Levemir) 1,000 Units/10 Ml Soln, 14 UNITS SQ BID Discontinued Reason: Duplicate Order Prescribed by: Whitney Lange on 09/10/21 1613 Insulin Lispro (Insulin Lispro Kwikpen U-100) 100 Unit/1 Ml Insuln.pen, 5 UNIT SQ ACHS, (Reported) Entered as Reported by: Whitney Lange on 09/10/21 1632 Methocarbamol (Methocarbamol) 750 Mg Tablet, 1,500 MG PO Q8H PRN for MUSCLE SPASMS Prescribed by: ALYSIA GERARD on 06/13/22 1225 Metoclopramide HCl (Reglan) 10 Mg Tablet, 10 MG PO TID Prescribed by: ALAINA OLEARY on 09/13/21 1037 Metronidazole (Metronidazole) 500 Mg Tablet, 500 MG PO BID Prescribed by: ALYSIA GERARD on 12/18/21 1447 Mupirocin (Mupirocin) 2 % Oint...g., 0.5 GM TP BID Prescribed by: ALYSIA GERARD on 07/05/22 1247 Ondansetron (Ondansetron Odt) 4 Mg Tab.rapdis, 4 MG SL Q4H PRN for NAUSEA/VOMITING Prescribed by: RONNY WALLACE on 10/20/22 192 Ondansetron (Ondansetron Odt) 4 Mg Tab.rapdis, 4 MG PO Q6H PRN for NAUSEA/VOMITING Prescribed by: TREMAYNE ADAM on 01/05/23 1441 Oxycodone HCl/Acetaminophen (Percocet 7.5-325 mg Tablet) 1 Each Tablet, 1 TAB PO Q6H PRN for PAIN-MODERATE (5-7) Prescribed by: PURVI DAWSON on 01/08/21 1533 Promethazine HCl (Promethazine Tablet) 25 Mg Tablet, 25 MG PO Q6H PRN for NAUSEA/VOMITING Prescribed by: ALYSIA GERARD on 12/18/21 1447 Sulfamethoxazole/Trimethoprim (Bactrim Ds Tablet) 1 Each Tablet, 1 EACH PO BID Prescribed by: ALYSIA GERARD on 07/05/22 1247 Sulfamethoxazole/Trimethoprim (Bactrim Ds Tablet) 1 Each Tablet, 1 EACH PO BID Prescribed by: ALYSIA GERARD on 09/29/22 1117 Review of Systems Review of Systems Constitutional: chills, fever (subjective), malaise EENTM: no symptoms reported Respiratory: no symptoms reported Cardiovascular: no symptoms reported Gastrointestinal: see HPI, abdominal pain (diffuse); No constipation, No diarrhea; nausea, vomiting (dry heaves) Genitourinary: No dysuria Musculoskeletal: other (generalized body aches and pains) Skin: see HPI Psychiatric/Neurological: See HPI Past Bzqmrss-Kpgiio-Fjnvjz Hx Patient Social History Tobacco Use?: Yes Tobacco type used: Cigarettes Substance use?: Yes Substance type: Marijuana Alcohol Use?: No Immunizations Up To Date Tetanus Booster (TDap): Unknown First/Initial COVID19 Vaccinat: UNKNOWN DATE Second COVID19 Vaccination [place]: UNKNOWN DATE Third COVID19 Vaccination Date: 09/2021 Seasonal Allergies Seasonal Allergies: No Past Medical History Surgery/Hospitalization HX: Insulin dependent DM, Bipolar, Cassie fundoplication; Hep C +; left rib fx; Marijuana induced cyclic vomiting Surgeries: Yes (UGI, ? Heart Surgery per prior hx family, R lower leg lesion removed) Cardiac, Gallbladder Respiratory: Yes COPD Currently Using CPAP: No Currently Using BIPAP: No Cardiac: Yes (heart surgery at 16mo for hole in heart; [place] 4 months ago, Systolic CHF) Atrial Fibrillation, Cardiomyopathy, Heart Attack, Irregular Heartbeat Neurological: No Genitourinary: No Gastrointestinal: Yes (Gastritis, Duodenitis, frequent alcohol intake, Hep C) Hepatitis Musculoskeletal: Yes Fractures Endocrine: Yes (Refuses to monitor blood sugar and to use insulin) Diabetes, Insulin dep HEENT: No Cancer: No Psychosocial: Yes (polysubstance abuse ) Anxiety Integumentary: Yes (Hidradenitis Suppurative, frequent abscesses, necrotizing fasciitis) Blood Disorders: Yes (Hep C+) Adverse Reaction/Blood Tranf: No Family Medical History No Pertinent Family Hx Physical Exam Vital Signs Vital Signs - First Documented 03/08/23 22:00 Temp 35.7 Pulse 81 Resp 18 B/P (MAP) 176/86 (116) Pulse Ox 97 O2 Delivery Room Air Capillary Refill : Less Than 3 Seconds Height, Weight, BMI Height: '" Weight: 192lbs. 4.0oz. 87.260508xm; 23.00 BMI Method: General Appearance: Anxious, Chronically ill, Moderate Distress HEENT: PERRL/EOMI, Pharynx Normal, Moist Mucous Membranes Neck: Full Range of Motion, Normal Inspection, Non Tender, Supple Respiratory: Chest Non Tender, Lungs Clear, Normal Breath Sounds Cardiovascular: Regular Rate, Rhythm, Normal Peripheral Pulses Gastrointestinal: Normal Bowel Sounds, No Pulsatile Mass, Soft; No Distended; Guarding; No Rebound; Tenderness (diffuse tenderness) Rectal: Deferred Extremity: Normal Capillary Refill, No Pedal Edema Neurologic/Psychiatric: Alert, Oriented x3 Skin: Warm/Dry, Other (dressing in place on Left upper back from recent I&D with surgeon during recent admit last week) Focused Exam Lactate Level 03/08/23 22:19: Lactic Acid Level 1.13 Lactic Acid Level Laboratory Tests Test 03/08/23 22:19 Lactic Acid Level 1.13 MMOL/L (0.50-2.00) Procedures/Interventions Date of ETT Placement: Jul 23, 2019 Time of ETT Placement: 0546 Progress/Results/Core Measures Suspected Sepsis SIRS Temperature: Pulse: 81 Respiratory Rate: 18 Laboratory Tests 03/08/23 22:19: White Blood Count 10.7 Blood Pressure 176 /86 Mean: 116 03/08/23 22:19: Lactic Acid Level 1.13 Laboratory Tests 03/08/23 22:19: Creatinine 1.04, Platelet Count 371, Total Bilirubin 0.3 Results/Orders Lab Results Laboratory Tests Test 03/08/23 22:19 03/09/23 00:00 Range/Units White Blood Count 10.7 4.3-11.0 10^3/uL Red Blood Count 3.77 L 4.30-5.52 10^6/uL Hemoglobin 11.6 L 13.3-17.7 g/dL Hematocrit 33 L 40-54 % Mean Corpuscular Volume 88 80-99 fL Mean Corpuscular Hemoglobin 31 25-34 pg Mean Corpuscular Hemoglobin Concent 35 32-36 g/dL Red Cell Distribution Width 11.7 10.0-14.5 % Platelet Count 371 130-400 10^3/uL Mean Platelet Volume 9.6 9.0-12.2 fL Immature Granulocyte % (Auto) 0 % Neutrophils (%) (Auto) 80 H 42-75 % Lymphocytes (%) (Auto) 12 12-44 % Monocytes (%) (Auto) 6 0-12 % Eosinophils (%) (Auto) 1 0-10 % Basophils (%) (Auto) 1 0-10 % Neutrophils # (Auto) 8.6 H 1.8-7.8 10^3/uL Lymphocytes # (Auto) 1.3 1.0-4.0 10^3/uL Monocytes # (Auto) 0.6 0.0-1.0 10^3/uL Eosinophils # (Auto) 0.1 0.0-0.3 10^3/uL Basophils # (Auto) 0.1 0.0-0.1 10^3/uL Immature Granulocyte # (Auto) 0.0 0.0-0.1 10^3/uL Sodium Level 138 135-145 MMOL/L Potassium Level 4.3 3.6-5.0 MMOL/L Chloride Level 100 98-107 MMOL/L Carbon Dioxide Level 26 21-32 MMOL/L Anion Gap 12 5-14 MMOL/L Blood Urea Nitrogen 17 7-18 MG/DL Creatinine 1.04 0.60-1.30 MG/DL Estimat Glomerular Filtration Rate 86 BUN/Creatinine Ratio 16 Glucose Level 264 H 70-105 MG/DL Lactic Acid Level 1.13 0.50-2.00 MMOL/L Calcium Level 9.3 8.5-10.1 MG/DL Corrected Calcium 9.9 8.5-10.1 MG/DL Total Bilirubin 0.3 0.1-1.0 MG/DL Aspartate Amino Transf (AST/SGOT) 21 5-34 U/L Alanine Aminotransferase (ALT/SGPT) 14 0-55 U/L Alkaline Phosphatase 108 40-136 U/L Total Protein 6.6 6.4-8.2 GM/DL Albumin 3.2 3.2-4.5 GM/DL Lipase 11 8-78 U/L Serum Alcohol < 10 <10 MG/DL Glucometer 100 70-110 MG/DL My Orders Orders - ALYSIA GERARD MD Comprehensive Metabolic Panel (03/08/23 22:08) Lipase (03/08/23 22:08) Ed Iv/Invasive Line Start (03/08/23 22:08) Cbc With Automated Diff (03/08/23 22:08) Alcohol (03/08/23 22:08) Lactic Acid Analyzer (03/08/23 22:08) Ns Iv 1000 Ml (Sodium Chloride 0.9%) (03/08/23 22:08) Lorazepam Injection (Ativan Injection) (03/08/23 22:08) Fentanyl Inj (Sublimaze Injection) (03/08/23 22:08) Ketorolac Injection (Toradol Injection) (03/08/23 22:08) Droperidol Inj (Ed Only) (Inapsine Inj ( (03/08/23 22:08) Pantoprazole Injection (Protonix Injecti (03/08/23 22:08) Insulin (Regular) Human (Novolin R (Per (03/08/23 22:59) Ns Iv 1000 Ml (Sodium Chloride 0.9%) (03/08/23 23:24) Rx-Ondansetron Po (Rx-Zofran Po) (03/08/23 23:24) Rx-Hydrocodone/Apap 5-325 Mg (Rx-Vicodin (03/08/23 23:30) Accucheck Stat ONCE (03/08/23 23:26) Vital Signs/I&O 03/08/23 22:00 Temp 35.7 Pulse 81 Resp 18 B/P (MAP) 176/86 (116) Pulse Ox 97 O2 Delivery Room Air Capillary Refill : Less Than 3 Seconds Blood Pressure Mean: 116 Progress Note #1: Progress Note Potential diagnosis of viral gastroenteritis, DKA, pancreatitis, gastritis, noncompliance with treatment, anxiety, polysubstance abuse. Obtain peripheral IV access and send labs for complete blood count, comprehensive metabolic profile, lipase, alcohol, urinalysis, urine drug screen, lactic acid. Administer normal saline 1 L IV fluid bolus for hydration, Ativan 1 mg IV for anxiety and epigastric pain, droperidol 2.5 mg IV for nausea and vomiting, fentanyl 50 mcg IV for abdominal pain, Toradol 15 mg IV for abdominal pain, pantoprazole 40 mg IV for possible gastritis. Progress Note #2: Time: 23:20 Progress Note After patient had medications administered to help with pain and nausea as well as anxiety he became somnolent and had his oxygen saturations going to 88 to 89% on room air as he was sleepy. He was placed in a room with the monitor bed and placed on 2 L supplemental oxygen by nasal cannula. With this he had his oxygen saturation come up to 99 to 100%. He was allowed to rest as IV fluids were infusing. He had no further dry heaves or moaning and crying out. His complete blood count did not show an elevated white blood cell count. His comprehensive metabolic profile showed his electrolytes were stable and not showing acute significant abnormality. He did have an elevated glucose of 276. His lactic acid was negative at 1.13. His CO2 and anion gap were normal. He did not provide a urine specimen so that orders for urine testing were canceled. He was feeling better and was agreeable to go home. A 10 unit regular insulin dose was ordered for IV to help bring his sugar down some. A second liter of normal saline 1 L IV fluid bolus for hydration was ordered. Patient was requesting something for pain and nausea at home. Will prescribe Zofran ODT and send a take all 4 pack of medicine with him for tonight. He was requesting the 10 mg hydrocodone strength as he reports he usually has to take 2 of the 5/325's to get any pain relief. Will send him with a take-home pack of the 5/325 mg pills 1 every 6 hours as needed for nausea vomiting. Prescription for the 10/325 strength hydrocodone/acetaminophen sent to the pharmacy. Advised patient that if he required additional pain or nausea control to work with the [facility] clinic on this. Encouraged to stay well-hydrated and keep drinking fluids. Advised to avoid using marijuana as it could be triggering nausea and vomiting for him Progress Note #3: Time: 00:02 Progress Note Accu-Chek shows his glucose is now 100 even. He has had second liter of normal saline IV fluid infused for hydration. He continues to do well in the room and is not having dry heaves or vomiting and no longer crying out intermittently. Counseled on follow-up and return precautions. Discharge to home in improved condition. Departure Impression Primary Impression: Dry heaves Additional Impressions: Diffuse abdominal pain Malaise Cellulitis due to MRSA Disposition: HOME, SELF-CARE Condition: Improved Departure-Patient Inst. Decision time for Depature: 23:27 Referrals: ZULMA HERRERA APRN (PCP) Primary Care Physician [facility] (Family) Primary Care Physician Patient Instructions: Nausea and Vomiting, Adult ED, Cellulitis (Skin Infection), Adult ED, Abdominal Pain, Adult ED Add. Discharge Instructions: Stay well-hydrated and keep sipping on fluids. Use the dissolving nausea tablets to help keep your stomach settled. You were prescribed a few more of the pain pills to try and help with keeping her pain controlled. If you need additional assistance with pain control and nausea check back with the [facility] and your primary care provider. Avoid using marijuana as it could contribute to more nausea and vomiting and dry heaves for you. All discharge instructions reviewed with patient and/or family. Voiced understanding. Scripts Hydrocodone/Acetaminophen (Hydrocodone-Acetamin 10-325 mg) 10 Mg-325 Mg Tablet 1 EACH PO Q6H PRN for PAIN SEVERE for 3 Days, #12 TAB 0 Refills Prov: ALYSIA GERARD MD 03/08/23 Ondansetron (Ondansetron Odt) 4 Mg Tab.rapdis 4 MG PO Q6H PRN for NAUSEA/VOMITING for 5 Days, #20 TAB 0 Refills Prov: ALYSIA GERARD MD 03/08/23 ALYSIA GERARD MD March 08, 2023 22:17
[2023-03-08 22:31] LABS: BASOPHILS # (AUTO) 0.1 10^3/uL (0.0-0.1); BASOPHILS % (AUTO) 1 % (0-10); EOSINOPHILS # (AUTO) 0.1 10^3/uL (0.0-0.3); EOSINOPHILS % (AUTO) 1 % (0-10); HEMATOCRIT 33 % (40-54); HEMOGLOBIN 11.6 g/dL (13.3-17.7); LYMPHOCYTES # (AUTO) 1.3 10^3/uL (1.0-4.0); LYMPHOCYTES % (AUTO) 12 % (12-44); MEAN CORPUSCULAR HEMOGLOBIN 31 pg (25-34); MEAN CORPUSCULAR HGB CONC 35 g/dL (32-36); MEAN CORPUSCULAR VOLUME 88 fL (80-99); MEAN PLATELET VOLUME 9.6 fL (9.0-12.2); MONOCYTES # (AUTO) 0.6 10^3/uL (0.0-1.0); MONOCYTES % (AUTO) 6 % (0-12); NEUTROPHILS # (AUTO) 8.6 10^3/uL (1.8-7.8); NEUTROPHILS % (AUTO) 80 % (42-75); PLATELET COUNT 371 10^3/uL (130-400); WHITE BLOOD COUNT 10.7 10^3/uL (4.3-11.0)
[2023-03-08 22:53] LABS: ALANINE AMINOTRANSFERASE 14 U/L (0-55); ALBUMIN 3.2 GM/DL (3.2-4.5); ALKALINE PHOSPHATASE 108 U/L (40-136); BILIRUBIN,TOTAL 0.3 MG/DL (0.1-1.0); BUN/CREATININE RATIO 16; CALCIUM 9.3 MG/DL (8.5-10.1); CARBON DIOXIDE 26 MMOL/L (21-32); CHLORIDE 100 MMOL/L (98-107); CREATININE SERUM 1.04 MG/DL (0.60-1.30); GFR ESTIMATED 86; GLUCOSE 264 MG/DL (70-105); POTASSIUM 4.3 MMOL/L (3.6-5.0); SODIUM 138 MMOL/L (135-145); TOTAL PROTEIN 6.6 GM/DL (6.4-8.2)
[2023-03-08 22:54] LABS: LIPASE 11 U/L (8-78)
[2023-03-08] MEDS ORDERED: inSUlin (REGULAR) HUMAN 1 UNIT/0.01 ML (CHARGE PER UNIT) IV STA (22:59)
[2023-03-08] MEDS ORDERED: RX-ONDANSETRON 4 MG ODT (ZOFRAN) PPK #4 PO STA (23:24)
[2023-03-08] MEDS ORDERED: ONDA4TAB11 PO (23:29)
[2023-03-08] MEDS ORDERED: HYDR-3820 PO (23:29)
[2023-03-09 00:20] VITALS: BP 152/74
== END 2023-03-09 00:20 | disposition home or self-care (01) ==
LOC: EDUNIT# 21:56 → ER FS 21:58
DX: L03.312 Cellulitis of back [any part except buttock and flank] (principal); A49.02 Methicillin resistant Staphylococcus aureus infection, unspecified site; R53.81 Other malaise; R10.84 Generalized abdominal pain; R11.2 Nausea with vomiting, unspecified; E11.9 Type 2 diabetes mellitus without complications; F17.210 Nicotine dependence, cigarettes, uncomplicated; Z79.4 Long term (current) use of insulin
CPT/HCPCS: 36415; 80053; 80320; 82947; 83605; 83690; 85025

== ENCOUNTER 2023-03-09 18:56 | Emergency (ER) | payer MEDICAID ==
[2023-03-09] MEDS ORDERED: diphenhydrAMINE 50 MG/ML INJ (BENADRYL) IV STA (19:04)
--- NOTE | 2023-03-09 19:04 | ED General ---
General Stated Complaint: FACIAL SWELLING,AMS History of Present Illness Date Seen by Provider: March 09, 2023 Time Seen by Provider: 19:00 Initial Comments 52-year-old male presents with what he feels like facial swelling and allergic reaction. Patient denies knowing of any new medications, contacts or other changes. He is a known drug user and also has bedbugs. He complains of some facial swelling when he woke up from a nap this afternoon. He was discharged from the hospital 2 days ago after being treated for abscess and cellulitis. He presented to the ER yesterday for nausea and vomiting and presents again today. Patient is not in any acute distress. Allergies and Home Medications Allergies Coded Allergies: Penicillins (Unverified Adverse Reaction, Unknown, 07/22/19) Patient Home Medication List Home Medication List Reviewed: Yes Amlodipine Besylate (Amlodipine Besylate) 5 Mg Tablet, 5 MG PO DAILY Prescribed by: LORNA FARMER on 03/06/23 1041 Glecaprevir/Pibrentasvir (Mavyret 100-40 mg Tablet) 100 Mg-40 Mg Tablet, 3 EA PO 1800, (Reported) Entered as Reported by: LORETTA SALVADOR on 03/03/23 1106 Hydrocodone/Acetaminophen (Hydrocodone-Acetamin 5-325 mg) 5 Mg-325 Mg Tablet, 1 TAB PO BID PRN for PAIN-MODERATE (5-7) Prescribed by: LORNA FARMER on 03/06/23 1042 Hydrocodone/Acetaminophen (Hydrocodone-Acetamin 10-325 mg) 10 Mg-325 Mg Tablet, 1 EACH PO Q6H PRN for PAIN SEVERE Prescribed by: ALYSIA GERARD on 03/08/23 2330 Insulin Detemir (Levemir Flexpen) 100 Unit/Ml (3 Ml) Insuln.pen, 16 UNITS SC BID, (Reported) Entered as Reported by: LORETTA SALVADOR on 03/03/23 1106 Ondansetron (Ondansetron Odt) 4 Mg Tab.rapdis, 4 MG PO Q6H PRN for NAUSEA /VOMITING Prescribed by: ALYSIA GERARD on 03/08/23 2329 Pantoprazole Sodium (Pantoprazole Sodium) 40 Mg Tablet.dr, 40 MG PO DAILY Prescribed by: LORNA FARMER on 03/06/23 1041 Discontinued Medications Capsaicin (Capsaicin) 42.5 Gm Cream..g., 42.5 GM TP Q12H PRN for PAIN-SEVERE (8- 10) Prescribed by: SOUMYA CARRERO on 09/20/21 214 Chlorhexidine Gluconate (Hibiclens) 4 % Liquid, 118 ML TP Q12H Prescribed by: TREMAYNE ADAM on 01/05/23 1440 Ciprofloxacin HCl (Ciprofloxacin HCl) 500 Mg Tablet, 500 MG PO BID Prescribed by: ALYSIA GERARD on 12/18/21 1447 Dicyclomine HCl (Dicyclomine HCl) 20 Mg Tablet, 20 MG PO Q6H PRN for abdominal cramping/pain Prescribed by: ALYSIA GERARD on 11/08/21 2238 Dicyclomine HCl (Dicyclomine HCl) 20 Mg Tablet, 20 MG PO TID Prescribed by: TREMAYNE ADAM on 01/09/23 1253 Doxycycline Hyclate (Doxycycline Hyclate) 100 Mg Tablet, 100 MG PO BID Prescribed by: TREMAYNE ADAM on 01/05/23 1440 Hydrocodone/Acetaminophen (Hydrocodone-Acetamin 5-325 mg) 1 Each Tablet, 1 TAB PO Q4H PRN for PAIN-MODERATE (5-7) Prescribed by: ABEL PEKC on 05/31/21 2325 Hydrocodone/Acetaminophen (Hydrocodone-Acetamin 5-325 mg) 1 Each Tablet, 1 TAB PO Q4H PRN for PAIN-SEVERE (8-10) Prescribed by: ALYSIA GERARD on 12/18/21 1447 Hydrocodone/Acetaminophen (Hydrocodone-Acetamin 10-325 mg) 10 Mg-325 Mg Tablet, 1 EACH PO Q4H PRN for PAIN-SEVERE (8-10) Prescribed by: ALYSIA GERARD on 06/13/22 1226 Hydrocodone/Acetaminophen (Hydrocodone-Acetamin 10-325 mg) 10 Mg-325 Mg Tablet, 1 EACH PO Q6H PRN for PAIN-SEVERE (8-10) Prescribed by: ALYSIA GERARD on 09/29/22 1118 Hydrocodone/Acetaminophen (Hydrocodone-Acetamin 5-325 mg) 5 Mg-325 Mg Tablet, 1 TAB PO Q6H PRN for PAIN-MODERATE (5-7) Prescribed by: RONNY WALLACE on 10/20/22 1928 Hyoscyamine Sulfate (Levsin-Sl) 0.125 Mg Tab.subl, 0.125 MG SL Q8H Prescribed by: TREMAYNE ADAM on 01/09/23 1253 Ibuprofen (Ibuprofen) 800 Mg Tablet, 800 MG PO Q8H PRN for PAIN Prescribed by: ALYSIA GERARD on 06/13/22 1225 Ibuprofen (Ibuprofen) 800 Mg Tablet, 800 MG PO Q8H PRN for PAIN Prescribed by: ALYSIA GERARD on 09/29/22 1117 Insulin Determir (Levemir) 1,000 Units/10 Ml Soln, 14 UNITS SQ BID Discontinued Reason: Duplicate Order Prescribed by: Whitney Lange on 09/10/21 1613 Insulin Lispro (Insulin Lispro Kwikpen U-100) 100 Unit/1 Ml Insuln.pen, 5 UNIT SQ ACHS, (Reported) Entered as Reported by: Whitney Lange on 09/10/21 1632 Methocarbamol (Methocarbamol) 750 Mg Tablet, 1,500 MG PO Q8H PRN for MUSCLE S PASMS Prescribed by: ALYSIA GERARD on 06/13/22 1225 Metoclopramide HCl (Reglan) 10 Mg Tablet, 10 MG PO TID Prescribed by: ALAINA OLEARY on 09/13/21 1037 Metronidazole (Metronidazole) 500 Mg Tablet, 500 MG PO BID Prescribed by: ALYSIA GERARD on 12/18/21 1447 Mupirocin (Mupirocin) 2 % Oint...g., 0.5 GM TP BID Prescribed by: ALYSIA GERARD on 07/05/22 1247 Ondansetron (Ondansetron Odt) 4 Mg Tab.rapdis, 4 MG SL Q4H PRN for NAUSEA/VOMITING Prescribed by: RONNY WALLACE on 10/20/22 1927 Ondansetron (Ondansetron Odt) 4 Mg Tab.rapdis, 4 MG PO Q6H PRN for NAUSEA/VOMITING Prescribed by: TREMAYNE ADAM on 01/05/23 1441 Oxycodone HCl/Acetaminophen (Percocet 7.5-325 mg Tablet) 1 Each Tablet, 1 TAB PO Q6H PRN for PAIN-MODERATE (5-7) Prescribed by: PURVI DAWSON on 01/08/21 1533 Promethazine HCl (Promethazine Tablet) 25 Mg Tablet, 25 MG PO Q6H PRN for NAUSEA/VOMITING Prescribed by: ALYSIA GERARD on 12/18/21 1447 Sulfamethoxazole/Trimethoprim (Bactrim Ds Tablet) 1 Each Tablet, 1 EACH PO BID Prescribed by: ALYSIA GUZMANRT on 07/05/22 1247 Sulfamethoxazole/Trimethoprim (Bactrim Ds Tablet) 1 Each Tablet, 1 EACH PO BID Prescribed by: ALYSIA GERARD on 09/29/22 1117 Review of Systems Review of Systems Constitutional: No chills, No fever Respiratory: no symptoms reported Cardiovascular: no symptoms reported Genitourinary: no symptoms reported Skin: see HPI Past Pfimgwr-Boecmd-Bhyvta Hx Immunizations Up To Date Tetanus Booster (TDap): Unknown First/Initial COVID19 Vaccinat: UNKNOWN DATE Second COVID19 Vaccination [place]: UNKNOWN DATE Third COVID19 Vaccination Date: 09/2021 Seasonal Allergies Seasonal Allergies: No Past Medical History Surgery/Hospitalization HX: Insulin dependent DM, Bipolar, Cassie fundoplication; Hep C +; left rib fx; Marijuana induced cyclic vomiting Surgeries: Yes (UGI, ? Heart Surgery per prior hx family, R lower leg lesion removed) Cardiac, Gallbladder Respiratory: Yes COPD Currently Using CPAP: No Currently Using BIPAP: No Cardiac: Yes (heart surgery at 16mo for hole in heart; [place] 4 months ago, Systolic CHF) Atrial Fibrillation, Cardiomyopathy, Heart Attack, Irregular Heartbeat Neurological: No Genitourinary: No Gastrointestinal: Yes (Gastritis, Duodenitis, frequent alcohol intake, Hep C) Hepatitis Musculoskeletal: Yes Fractures Endocrine: Yes (Refuses to monitor blood sugar and to use insulin) Diabetes, Insulin dep HEENT: No Cancer: No Psychosocial: Yes (polysubstance abuse ) Anxiety Integumentary: Yes (Hidradenitis Suppurative, frequent abscesses, necrotizing f asciitis) Blood Disorders: Yes (Hep C+) Adverse Reaction/Blood Tranf: No Family Medical History No Pertinent Family Hx Physical Exam Vital Signs Vital Signs - First Documented 03/09/23 18:56 Temp 36.5 Pulse 72 Resp 18 B/P (MAP) 160/83 (108) Pulse Ox 97 O2 Delivery Room Air Capillary Refill : Height, Weight, BMI Height: '" Weight: 192lbs. 4.0oz. [id number]; 23.00 BMI Method: General Appearance: Other (Unkept, disheveled) Respiratory: Lungs Clear, Normal Breath Sounds Cardiovascular: Regular Rate, Rhythm, No Edema Neurologic/Psychiatric: Alert, Oriented x3 Skin: Other (Minimal to no obvious noted facial swelling or erythema) Focused Exam Lactate Level 03/09/23 19:30: Lactic Acid Level 0.85 Lactic Acid Level Laboratory Tests Test 03/09/23 19:30 Lactic Acid Level 0.85 MMOL/L (0.50-2.00) Procedures/Interventions Date of ETT Placement: Jul 23, 2019 Time of ETT Placement: 05 Progress/Results/Core Measures Suspected Sepsis SIRS Temperature: Pulse: Respiratory Rate: Laboratory Tests 03/09/23 19:30: White Blood Count 10.4 Blood Pressure / Mean: 03/09/23 19:30: Lactic Acid Level 0.85 Laboratory Tests 03/09/23 19:30: Creatinine 0.97, Platelet Count 400, Total Bilirubin 0.3 Results/Orders Lab Results Laboratory Tests Test 03/09/23 19:30 Range/Units White Blood Count 10.4 4.3-11.0 10^3/uL Red Blood Count 3.69 L 4.30-5.52 10^6/uL Hemoglobin 11.3 L 13.3-17.7 g/dL Hematocrit 33 L 40-54 % Mean Corpuscular Volume 89 80-99 fL Mean Corpuscular Hemoglobin 31 25-34 pg Mean Corpuscular Hemoglobin Concent 35 32-36 g/dL Red Cell Distribution Width 11.8 10.0-14.5 % Platelet Count 400 130-400 10^3/uL Mean Platelet Volume 9.3 9.0-12.2 fL Immature Granulocyte % (Auto) 0 % Neutrophils (%) (Auto) 78 H 42-75 % Lymphocytes (%) (Auto) 14 12-44 % Monocytes (%) (Auto) 6 0-12 % Eosinophils (%) (Auto) 1 0-10 % Basophils (%) (Auto) 0 0-10 % Neutrophils # (Auto) 8.1 H 1.8-7.8 10^3/uL Lymphocytes # (Auto) 1.4 1.0-4.0 10^3/uL Monocytes # (Auto) 0.6 0.0-1.0 10^3/uL Eosinophils # (Auto) 0.1 0.0-0.3 10^3/uL Basophils # (Auto) 0.0 0.0-0.1 10^3/uL Immature Granulocyte # (Auto) 0.0 0.0-0.1 10^3/uL Percent Immature Platelet Fraction 1.4 0.0-7.6 % Sodium Level 139 135-145 MMOL/L Potassium Level 4.0 3.6-5.0 MMOL/L Chloride Level 103 98-107 MMOL/L Carbon Dioxide Level 26 21-32 MMOL/L Anion Gap 10 5-14 MMOL/L Blood Urea Nitrogen 12 7-18 MG/DL Creatinine 0.97 0.60-1.30 MG/DL Estimat Glomerular Filtration Rate 94 BUN/Creatinine Ratio 12 Glucose Level 164 H 70-105 MG/DL Lactic Acid Level 0.85 0.50-2.00 MMOL/L Calcium Level 8.7 8.5-10.1 MG/DL Corrected Calcium 9.5 8.5-10.1 MG/DL Magnesium Level 1.6 1.6-2.4 MG/DL Total Bilirubin 0.3 0.1-1.0 MG/DL Aspartate Amino Transf (AST/SGOT) 22 5-34 U/L Alanine Aminotransferase (ALT/SGPT) 14 0-55 U/L Alkaline Phosphatase 100 40-136 U/L Total Protein 6.2 L 6.4-8.2 GM/DL Albumin 3.0 L 3.2-4.5 GM/DL My Orders Orders - ADAM,TREMAYNE L DO Cbc With Automated Diff (03/09/23 19:04) Comprehensive Metabolic Panel (03/09/23 19:04) Lactic Acid Analyzer (03/09/23 19:04) Magnesium (03/09/23 19:04) Diphenhydramine Injection (Benadryl Inje (03/09/23 19:04) Dexamethasone Injection (Decadron Inje (03/09/23 19:15) Medications Given in ED Current Medications Medications Dose Ordered Sig/Scarlett Route Start Time Stop Time Status Last Admin Dose Admin Dexamethasone Sodium Phosphate 10 mg ONCE ONCE IV 03/09/23 19:15 03/09/23 19:16 DC 03/09/23 19:19 10 MG Vital Signs/I&O 03/09/23 18:56 Temp 36.5 Pulse 72 Resp 18 B/P (MAP) 160/83 (108) Pulse Ox 97 O2 Delivery Room Air Capillary Refill : Progress Note : Progress Note Patient diagnostic studies were ordered reviewed and interpreted by me. Patient with no acute findings on his labs. Patient's ER visit from yesterday was reviewed. Patient's recent hospitalist station discharge summaries medications and admissions were reviewed. Patient with very mild likely allergic reaction. Patient's symptoms resolved following Benadryl and dexamethasone. Patient symptoms are not consistent with anaphylaxis. I discussed with patient it is hard to say what his reaction was from. He should follow-up with his primary care provider and they can review his medications if it has a recurrence. He can use Benadryl 25 to 50 mg every 6-8 hours as needed. He is stable and discharged Departure Impression Primary Impression: Allergic reaction Qualified Codes: T78.40XA - Allergy, unspecified, initial encounter Disposition: HOME, SELF-CARE Condition: Stable Departure-Patient Inst. Referrals: ZLUMA HERRERA APRN (PCP) Primary Care Physician [facility] (Family) Primary Care Physician Patient Instructions: Allergic Reaction ED Add. Discharge Instructions: Benadryl 25 to 50 mg every 6-8 hours as needed. If it becomes recurrent please follow-up with Zulma Herrera to review your medications and for further allergy testing as they feel as needed TREMAYNE ADAM DO March 09, 2023 19:04
[2023-03-09 19:56] LABS: BASOPHILS % (AUTO) 0 % (0-10); EOSINOPHILS # (AUTO) 0.1 10^3/uL (0.0-0.3); EOSINOPHILS % (AUTO) 1 % (0-10); HEMATOCRIT 33 % (40-54); HEMOGLOBIN 11.3 g/dL (13.3-17.7); LYMPHOCYTES # (AUTO) 1.4 10^3/uL (1.0-4.0); LYMPHOCYTES % (AUTO) 14 % (12-44); MEAN CORPUSCULAR HEMOGLOBIN 31 pg (25-34); MEAN CORPUSCULAR HGB CONC 35 g/dL (32-36); MEAN CORPUSCULAR VOLUME 89 fL (80-99); MEAN PLATELET VOLUME 9.3 fL (9.0-12.2); MONOCYTES # (AUTO) 0.6 10^3/uL (0.0-1.0); MONOCYTES % (AUTO) 6 % (0-12); NEUTROPHILS # (AUTO) 8.1 10^3/uL (1.8-7.8); NEUTROPHILS % (AUTO) 78 % (42-75); PLATELET COUNT 400 10^3/uL (130-400); WHITE BLOOD COUNT 10.4 10^3/uL (4.3-11.0)
[2023-03-09 19:58] LABS: BILIRUBIN,TOTAL 0.3 MG/DL (0.1-1.0); CALCIUM 8.7 MG/DL (8.5-10.1); CREATININE SERUM 0.97 MG/DL (0.60-1.30); MAGNESIUM 1.6 MG/DL (1.6-2.4)
[2023-03-09 19:59] LABS: TOTAL PROTEIN 6.2 GM/DL (6.4-8.2)
[2023-03-09 20:19] VITALS: BP 160/83
== END 2023-03-09 20:19 | disposition home or self-care (01) ==
LOC: EDUNIT# 18:56 → ER FS 18:59
DX: R11.2 Nausea with vomiting, unspecified (principal); T50.905A Adverse effect of unspecified drugs, medicaments and biological substances, initial encounter; E11.9 Type 2 diabetes mellitus without complications; Z79.4 Long term (current) use of insulin
CPT/HCPCS: 36415; 80053; 83605; 83735; 85025; 99283

== ENCOUNTER 2023-03-11 12:42 | Emergency (ER) | payer MEDICAID ==
[~2023-03-11] VITALS: Ht 185.5 cm; Wt 81.6 kg
[2023-03-11] MEDS ORDERED: LORazepam INJ 2 MG/ML (ATIVAN) VIAL IVP ONE (13:00)
[2023-03-11 13:05] LABS: BASOPHILS % (AUTO) 0 % (0-10); EOSINOPHILS # (AUTO) 0.1 10^3/uL (0.0-0.3); EOSINOPHILS % (AUTO) 1 % (0-10); HEMATOCRIT 32 % (40-54); LYMPHOCYTES # (AUTO) 2.8 10^3/uL (1.0-4.0); LYMPHOCYTES % (AUTO) 21 % (12-44); MEAN CORPUSCULAR HEMOGLOBIN 31 pg (25-34); MEAN CORPUSCULAR HGB CONC 35 g/dL (32-36); MEAN CORPUSCULAR VOLUME 89 fL (80-99); MEAN PLATELET VOLUME 9.5 fL (9.0-12.2); MONOCYTES % (AUTO) 8 % (0-12); NEUTROPHILS % (AUTO) 69 % (42-75); PLATELET COUNT 370 10^3/uL (130-400); WHITE BLOOD COUNT 13.1 10^3/uL (4.3-11.0)
--- NOTE | 2023-03-11 13:07 | ED General ---
General Chief Complaint: Chest Pain Stated Complaint: CHEST PAIN Nursing Triage Note: PT TO ROOM [facility] WITH C/O CHEST PAIN AND SOB X1 WEEK. Source of Information: Patient, EMS, Old Records, RN Notes Reviewed Exam Limitations: Other (Poor historian , moaning of pain) History of Present Illness Date Seen by Provider: March 11, 2023 Time Seen by Provider: 12:47 Initial Comments 52-year-old male patient with history of frequent emergency room visit brought in by EMS because of chest pain and shortness of breath. Patient complaining of episodes of substernal sharp pain for 1 week with radiation to his back like his previous episode of chest pain that usually is started in the morning and last for 5 or 6 hours and associated with shortness of breath and cough and subjective fever. Patient rated his pain 10/10 and stated he did not take any pain medication for the last 1 week. Patient also complaining of chronic abdominal pain for years. Patient is anxious and moaning of pain. Patient was seen in this emergency room on March 08 and March 09 for evaluation of abscess and did not complaining of chest pain or shortness of breath or abdominal pain. Allergies and Home Medications Allergies Coded Allergies: Penicillins (Unverified Adverse Reaction, Unknown, 07/22/19) Patient Home Medication List Home Medication List Reviewed: Yes Amlodipine Besylate (Amlodipine Besylate) 5 Mg Tablet, 5 MG PO DAILY Prescribed by: LORNA FARMER on 03/06/23 1041 Furosemide (Lasix) 40 Mg Tablet, 40 MG PO DAILY Prescribed by: Trina carpenter on 03/11/23 1405 Glecaprevir/Pibrentasvir (Mavyret 100-40 mg Tablet) 100 Mg-40 Mg Tablet, 3 EA PO 1800, (Reported) Entered as Reported by: LORETTA SALVADOR on 03/03/23 1106 Hydrocodone/Acetaminophen (Hydrocodone-Acetamin 5-325 mg) 5 Mg-325 Mg Tablet, 1 TAB PO BID PRN for PAIN-MODERATE (5-7) Prescribed by: LORNA FARMER on 03/06/23 1042 Hydrocodone/Acetaminophen (Hydrocodone-Acetamin 10-325 mg) 10 Mg-325 Mg Tablet, 1 EACH PO Q6H PRN for PAIN SEVERE Prescribed by: ALYSIA GERARD on 03/08/23 2330 Insulin Detemir (Levemir Flexpen) 100 Unit/Ml (3 Ml) Insuln.pen, 16 UNITS SC BID, (Reported) Entered as Reported by: LORETTA SALVADOR on 03/03/23 1106 Ondansetron (Ondansetron Odt) 4 Mg Tab.rapdis, 4 MG PO Q6H PRN for NAUSEA/VOMITING Prescribed by: ALYSIA GERARD on 03/08/23 2329 Ondansetron (Ondansetron Odt) 4 Mg Tab.rapdis, 4 MG PO TID PRN for NAUSEA-1ST LINE Prescribed by: Trina carpenter on 03/11/23 1405 Pantoprazole Sodium (Pantoprazole Sodium) 40 Mg Tablet.dr, 40 MG PO DAILY Prescribed by: LORNA FARMER on 03/06/23 1041 Potassium Chloride (Potassium Chloride) 20 Meq Tablet.er, 40 MEQ PO DAILY Prescribed by: Trina carpenter on 03/11/23 1405 Review of Systems Review of Systems Constitutional: see HPI EENTM: no symptoms reported Respiratory: see HPI Cardiovascular: see HPI Gastrointestinal: see HPI Genitourinary: no symptoms reported Skin: see HPI Psychiatric/Neurological: See HPI Hematologic/Lymphatic: No Symptoms Reported All Other Systems Reviewed Negative Unless Noted: Yes Past Fbgfodn-Bymcfv-Rrlarx Hx Patient Social History Tobacco Use?: Yes Tobacco type used: Cigarettes Smoking Status: Heavy Tobacco Smoker Smokeless Tobacco Frequency: Never a User Use of E-Cig and/or Vaping dev: No Use of E-Cig and/or Vaping Jewel: Never a User Substance use?: Yes Substance type: Methamphetamine, Marijuana Substance frequency: Couple times a week Alcohol Use?: No Pt feels they are or have been: No Immunizations Up To Date Tetanus Booster (TDap): Unknown First/Initial COVID19 Vaccinat: UNKNOWN DATE Second COVID19 Vaccination [place]: UNKNOWN DATE Third COVID19 Vaccination Date: 09/2021 Seasonal Allergies Seasonal Allergies: No Past Medical History Surgery/Hospitalization HX: Insulin dependent DM, Bipolar, Cassie fundoplication; Hep C +; left rib fx; Marijuana induced cyclic vomiting Surgeries: Yes (UGI, ? Heart Surgery per prior hx family, R lower leg lesion removed) Cardiac, Gallbladder Respiratory: Yes COPD Currently Using CPAP: No Currently Using BIPAP: No Cardiac: Yes (heart surgery at 16mo for hole in heart; [place] 4 months ago, Systolic CHF) Atrial Fibrillation, Cardiomyopathy, Heart Attack, Irregular Heartbeat Neurological: No Genitourinary: No Gastrointestinal: Yes (Gastritis, Duodenitis, frequent alcohol intake, Hep C) Hepatitis Musculoskeletal: Yes Fractures Endocrine: Yes (Refuses to monitor blood sugar and to use insulin) Diabetes, Insulin dep HEENT: No Cancer: No Psychosocial: Yes (polysubstance abuse ) Anxiety Integumentary: Yes (Hidradenitis Suppurative, frequent abscesses, necrotizing fasciitis) Blood Disorders: Yes (Hep C+) Adverse Reaction/Blood Tranf: No Family Medical History No Pertinent Family Hx Physical Exam Vital Signs Vital Signs - First Documented 03/11/23 03/11/23 12:42 14:21 Temp 36.3 Pulse 79 Resp 19 B/P (MAP) 175/80 (111) Pulse Ox 98 O2 Delivery Room Air Capillary Refill : Less Than 3 Seconds Height, Weight, BMI Height: '" Weight: 192lbs. 4.0oz. 87.086558lp; 23.00 BMI Method: General Appearance: WD/WN, Anxious, Mild Distress Eyes: Bilateral Eye Normal Inspection, Bilateral Eye PERRL, Bilateral Eye EOMI HEENT: PERRL/EOMI, TMs Normal, Normal ENT Inspection, Pharynx Normal Neck: Full Range of Motion, Normal Inspection, Non Tender, Supple, Carotid Bruit Respiratory: Lungs Clear, Normal Breath Sounds, No Accessory Muscle Use, No Respiratory Distress, Other (Reproducible chest wall pain) Cardiovascular: Regular Rate, Rhythm, No Edema, No Gallop, No JVD, No Murmur, Normal Peripheral Pulses Gastrointestinal: Normal Bowel Sounds, No Organomegaly, No Pulsatile Mass, Non Tender, Soft Back: Normal Inspection, No CVA Tenderness, No Vertebral Tenderness Extremity: Normal Capillary Refill, Normal Inspection, Normal Range of Motion, Non Tender, No Calf Tenderness, No Pedal Edema Neurologic/Psychiatric: Alert, Oriented x3, No Motor/Sensory Deficits, Normal Mood/Affect Skin: Normal Color, Warm/Dry, Other (Multiple score of abscess, a healing and drained abscess on left upper back area covered with dressing without drainage of pus) Lymphatic: No Adenopathy Procedures/Interventions Date of ETT Placement: Jul 23, 2019 Time of ETT Placement: 545 Progress/Results/Core Measures Suspected Sepsis SIRS Temperature: Pulse: 79 Respiratory Rate: 19 Laboratory Tests 03/11/23 12:49: White Blood Count 13.1H Blood Pressure 175 /80 Mean: 111 Laboratory Tests 03/11/23 12:49: Creatinine 1.27, Platelet Count 370, Total Bilirubin 0.2 Results/Orders Lab Results Laboratory Tests Test 03/11/23 12:49 03/11/23 14:20 Range/Units White Blood Count 13.1 H 4.3-11.0 10^3/uL Red Blood Count 3.58 L 4.30-5.52 10^6/uL Hemoglobin 11.0 L 13.3-17.7 g/dL Hematocrit 32 L 40-54 % Mean Corpuscular Volume 89 80-99 fL Mean Corpuscular Hemoglobin 31 25-34 pg Mean Corpuscular Hemoglobin Concent 35 32-36 g/dL Red Cell Distribution Width 12.0 10.0-14.5 % Platelet Count 370 130-400 10^3/uL Mean Platelet Volume 9.5 9.0-12.2 fL Immature Granulocyte % (Auto) 1 % Neutrophils (%) (Auto) 69 42-75 % Lymphocytes (%) (Auto) 21 12-44 % Monocytes (%) (Auto) 8 0-12 % Eosinophils (%) (Auto) 1 0-10 % Basophils (%) (Auto) 0 0-10 % Neutrophils # (Auto) 9.0 H 1.8-7.8 10^3/uL Lymphocytes # (Auto) 2.8 1.0-4.0 10^3/uL Monocytes # (Auto) 1.0 0.0-1.0 10^3/uL Eosinophils # (Auto) 0.1 0.0-0.3 10^3/uL Basophils # (Auto) 0.0 0.0-0.1 10^3/uL Immature Granulocyte # (Auto) 0.1 0.0-0.1 10^3/uL Sodium Level 140 135-145 MMOL/L Potassium Level 3.6 3.6-5.0 MMOL/L Chloride Level 105 98-107 MMOL/L Carbon Dioxide Level 26 21-32 MMOL/L Anion Gap 9 5-14 MMOL/L Blood Urea Nitrogen 22 H 7-18 MG/DL Creatinine 1.27 0.60-1.30 MG/DL Estimat Glomerular Filtration Rate 68 BUN/Creatinine Ratio 17 Glucose Level 160 H 70-105 MG/DL Calcium Level 8.9 8.5-10.1 MG/DL Corrected Calcium 9.7 8.5-10.1 MG/DL Magnesium Level 1.7 1.6-2.4 MG/DL Total Bilirubin 0.2 0.1-1.0 MG/DL Aspartate Amino Transf (AST/SGOT) 24 5-34 U/L Alanine Aminotransferase (ALT/SGPT) 15 0-55 U/L Alkaline Phosphatase 88 40-136 U/L Troponin I < 0.30 <0.30 NG/ML Pro-B-Type Natriuretic Peptide 2473.0 H <125.0 PG/ML Total Protein 6.0 L 6.4-8.2 GM/DL Albumin 3.0 L 3.2-4.5 GM/DL Lipase 11 8-78 U/L Urine Opiates Screen POSITIVE H NEGATIVE Urine Oxycodone Screen NEGATIVE NEGATIVE Urine Methadone Screen NEGATIVE NEGATIVE Urine Propoxyphene Screen NEGATIVE NEGATIVE Urine Barbiturates Screen NEGATIVE NEGATIVE Ur Tricyclic Antidepressants Screen NEGATIVE NEGATIVE Urine Phencyclidine Screen NEGATIVE NEGATIVE Urine Amphetamines Screen NEGATIVE NEGATIVE Urine Methamphetamines Screen NEGATIVE NEGATIVE Urine Benzodiazepines Screen NEGATIVE NEGATIVE Urine Cocaine Screen NEGATIVE NEGATIVE Urine Cannabinoids Screen POSITIVE H NEGATIVE My Orders Orders - TRINA CARPENTER MD Cbc With Automated Diff (03/11/23 12:57) Comprehensive Metabolic Panel (03/11/23 12:57) Chest 1 View Ap/Pa Only (03/11/23 12:57) Magnesium (03/11/23 12:57) Ekg Tracing (03/11/23 12:57) Monitor-Rhythm Ecg Trace Only (03/11/23 12:57) Lipase (03/11/23 12:57) Troponin I Fs (03/11/23 12:57) Drug Screen Stat (Urine) (03/11/23 12:57) Lorazepam Injection (Ativan Injection) (03/11/23 13:00) Probnp Fs (03/11/23 12:49) Nitroglycerin 0.4 Mg Btl 25's (Nitrostat (03/11/23 13:45) Furosemide Injection (Lasix Injection) (03/11/23 14:00) Ondansetron Injection (Zofran Injectio (03/11/23 14:00) Ondansetron Injection (Zofran Injectio (03/11/23 13:54) Medications Given in ED Current Medications Medications Dose Ordered Sig/Scarlett Route Start Time Stop Time Status Last Admin Dose Admin Furosemide 40 mg ONCE ONCE IVP 03/11/23 14:00 03/11/23 14:01 DC 03/11/23 13:56 40 MG Lorazepam 1 mg ONCE ONCE IVP 03/11/23 13:00 03/11/23 13:03 DC 03/11/23 13:05 1 MG Nitroglycerin 0.4 mg ONCE ONCE SL 03/11/23 13:45 03/11/23 13:46 DC 03/11/23 13:37 0.4 MG Ondansetron HCl 4 mg ONCE ONCE IVP 03/11/23 14:00 03/11/23 14:01 DC 03/11/23 13:56 4 MG Vital Signs/I&O 03/11/23 03/11/23 12:42 14:21 Temp 36.3 36.4 Pulse 79 84 Resp 19 16 B/P (MAP) 175/80 (111) 149/87 Pulse Ox 98 O2 Delivery Room Air Capillary Refill : Less Than 3 Seconds Blood Pressure Mean: 111 Progress Note : Progress Note 52-year-old male patient with frequent emergency room visits including 2 ER visits 2 days and 3 days ago brought in by EMS with complaining of chest pain and shortness of breath for 2 weeks and chronic abdominal pain. Patient was moaning and very anxious at arrival to ER and treated with Ativan with partial improvement of his condition. Patient had blood pressure of 170s with O2 sat of more than 95% at room air. His lungs was clear. EKG with multiple artifact showed nonspecific T wave abnormality. Chest x-ray showed cardiomegaly without pulmonary edema. Labs showed mild elevation of white count at 13,000 with history of previous leukocytosis. Hemoglobin was 11 at his usual baseline. Patient had blood sugar of 160 with history of diabetes mellitus. Patient had negative troponin. BNP was 2400 that increased from previous BNP. Patient does not take diuretic and treated with Lasix in ER and prescription for Lasix and potassium was given. UDS was positive for marijuana and opiates. Patient had nitro x1 in ER with improvement of his chest pain. Patient ambulated without problem and advised to continue home medication and follow-up with primary care physician/social work manager for CHF and patient sounded understanding discharge instruction and needs for follow-up. ECG Initial ECG Impression Date: March 11, 2023 Initial ECG Impression Time: 12:59 Initial ECG Rate: 81 Initial ECG Rhythm: Normal Sinus Initial ECG Intervals: Normal Comment EKG with multiple artifact because of patient movement, normal sinus rhythm at rate of 81, [place] interval of 149 and QT of 340 and QTc of 377, nonspecific T wave abnormalities, no acute ST and T wave elevation. Diagnostic Imaging Diagonstic Imaging: Xray Plain Films/CT/US/NM/MRI: chest Comments 1 view chest x-ray interpreted by radiologist and reviewed by me and showed: [facility] [place], [place] NAME: LEONOR LAZARO [facility] REC#: [id number] PT STATUS: REG ER : 1970 PHYSICIAN: TRINA CARPENTER MD ADMIT DATE: 03/11/23/ER FS Signed Date of Exam:03/11/23 CHEST 1 VIEW AP/PA ONLY EXAMINATION: Chest 1 view HISTORY: Shortness of breath. Chest pain. COMPARISON: 03/02/2023. FINDINGS: The lung volumes are normal. No focal consolidation is seen. No large pleural effusion or pneumothorax is seen. The cardiomediastinal silhouette is prominent. No acute osseous abnormality is seen. IMPRESSION: 1. Cardiomegaly. No overt pulmonary edema. Dictated by: Dictated on workstation # [id number] Dict: 03/11/23 1325 Trans: 03/11/23 1346 CVB [id number] Interpreted by: JOSE STEPHENSON DO Electronically signed by: JOSE STEPHENSON DO 03/11/23 1346 Departure Impression Primary Impression: CHF (congestive heart failure) Qualified Codes: I50.9 - Heart failure, unspecified Additional Impressions: Anxiety Chronic pain Qualified Codes: G89.29 - Other chronic pain Uncontrolled diabetes mellitus Qualified Codes: E11.65 - Type 2 diabetes mellitus with hyperglycemia Chronic anemia History of hepatitis C Musculoskeletal chest pain Disposition: HOME, SELF-CARE Condition: Improved Departure-Patient Inst. Decision time for Depature: 14:19 Referrals: ZULMA HERRERA APRN (PCP) Primary Care Physician [facility] (Family) Primary Care Physician Patient Instructions: Anxiety, Adult ED, Chest Pain That Is Not Caused by the Heart (DC), Heart Failure ED Add. Discharge Instructions: Continue home medication Do not drink too much water or liquid Follow-up with your primary care physician in 2 or 3 days Return to ER as needed All discharge instructions reviewed with patient and/or family. Voiced understanding. Scripts Ondansetron (Ondansetron Odt) 4 Mg Tab.rapdis 4 MG PO TID PRN for NAUSEA-1ST LINE, #10 TAB Prov: TRINA CARPENTER MD 03/11/23 Potassium Chloride (Potassium Chloride) 20 Meq Tablet.er 40 MEQ PO DAILY for 10 Days, #20 TAB Prov: TRINA CARPENTER MD 03/11/23 Furosemide (Lasix) 40 Mg Tablet 40 MG PO DAILY, #10 TAB Prov: TRINA CARPENTER MD 03/11/23 TRINA CARPENTER MD March 11, 2023 13:07
[2023-03-11 13:18] LABS: ALANINE AMINOTRANSFERASE 15 U/L (0-55); ALKALINE PHOSPHATASE 88 U/L (40-136); BILIRUBIN,TOTAL 0.2 MG/DL (0.1-1.0); BUN/CREATININE RATIO 17; CALCIUM 8.9 MG/DL (8.5-10.1); CARBON DIOXIDE 26 MMOL/L (21-32); CHLORIDE 105 MMOL/L (98-107); CREATININE SERUM 1.27 MG/DL (0.60-1.30); GFR ESTIMATED 68; GLUCOSE 160 MG/DL (70-105); MAGNESIUM 1.7 MG/DL (1.6-2.4); POTASSIUM 3.6 MMOL/L (3.6-5.0); SODIUM 140 MMOL/L (135-145)
--- NOTE | 2023-03-11 13:27 | Diagnostic Imaging Report ---
EXAMINATION: Chest 1 view HISTORY: Shortness of breath. Chest pain. COMPARISON: 03/02/2023. FINDINGS: The lung volumes are normal. No focal consolidation is seen. No large pleural effusion or pneumothorax is seen. The cardiomediastinal silhouette is prominent. No acute osseous abnormality is seen. IMPRESSION: 1. Cardiomegaly. No overt pulmonary edema. Dictated by: Dictated on workstation # [id number]
[2023-03-11] MEDS ORDERED: NITROGLYCERIN 0.4 MG SL TABS BTL 25'S SL ONE (13:45)
[2023-03-11] MEDS ORDERED: ONDANSETRON 4 MG/2 ML (SDV) Z0FRAN ONE (13:54)
[2023-03-11] MEDS ORDERED: FUROSEMIDE 40 MG/4 ML INJ (LASIX) IVP ONE (14:00)
[2023-03-11] MEDS ORDERED: ONDANSETRON 4 MG/2 ML (SDV) Z0FRAN IVP ONE (14:00)
[2023-03-11] MEDS ORDERED: ONDA4TAB11 PO (14:05)
[2023-03-11] MEDS ORDERED: POTA-51 PO (14:05)
[2023-03-11] MEDS ORDERED: FURO-124 PO (14:05)
[2023-03-11 14:21] VITALS: BP 149/87
[2023-03-11 14:33] LABS: AMPHETAMINE SCREEN, URINE NEGATIVE (NEGATIVE); BENZODIAZEPINES SCREEN URINE NEGATIVE (NEGATIVE); CANNABINOID SCREEN, URINE POSITIVE (NEGATIVE); COCAINE SCREEN URINE NEGATIVE (NEGATIVE); OPIATE SCREEN URINE POSITIVE (NEGATIVE)
[2023-03-11 14:34] LABS: BARBITURATE SCREEN URINE NEGATIVE (NEGATIVE); METHADONE STAT NEGATIVE (NEGATIVE); OXYCODONE STAT NEGATIVE (NEGATIVE); PROPOXYPHENE STAT NEGATIVE (NEGATIVE); TRICYCLIC ANTIDEPRESSANTS SCRE NEGATIVE (NEGATIVE)
== END 2023-03-11 14:21 | disposition home or self-care (01) ==
LOC: EDUNIT# 12:42 → ER FS 12:43
DX: I50.9 Heart failure, unspecified (principal); F41.9 Anxiety disorder, unspecified; D64.9 Anemia, unspecified; E11.9 Type 2 diabetes mellitus without complications; G89.29 Other chronic pain; I51.7 Cardiomegaly; I25.2 Old myocardial infarction; F17.210 Nicotine dependence, cigarettes, uncomplicated; Z86.19 Personal history of other infectious and parasitic diseases
CPT/HCPCS: 36415; 71045; 80053; 80306; 83690; 83735; 83880; 84484; 85025; 93005; 93041

== ENCOUNTER 2023-03-13 20:13 | Emergency (ER) | payer MEDICAID ==
[~2023-03-13] VITALS: Ht 182.8 cm; Wt 84.5 kg
[~2023-03-13 20:13] MED LIST changes: +FURO-124 PO; +POTA-51 PO
[2023-03-13 20:16] VITALS: BP 170/96
[2023-03-13] MEDS ORDERED: FAMOTIDINE 20 MG (PEPCID) TABLET PO STA (20:26)
--- NOTE | 2023-03-13 20:26 | ED Abdominal Pain ---
General Chief Complaint: Abdominal/GI Problems Stated Complaint: ABD PAIN Source of Information: Patient, Old Records Exam Limitations: No Limitations History of Present Illness Date Seen by Provider: March 13, 2023 Time Seen by Provider: 20:14 Initial Comments 53yoM with PMH of DM, cyclical vomiting, chronic marijuana use, chronic pain coming in due to abdominal pain. He states this has been going on for several weeks. He states the pain is not getting better. It's in the center and upper part of his abdomen. Has associated nausea with it. Does have normal bowel movements. Denies any fever, current chest pain, shortness of breath, weakness, numbness, dysuria, or any other concerns. Of note, this is the patient's 4th visit to the ER in 6 days. Allergies and Home Medications Allergies Coded Allergies: Penicillins (Unverified Adverse Reaction, Unknown, 07/22/19) Patient Home Medication List Home Medication List Reviewed: Yes Amlodipine Besylate (Amlodipine Besylate) 5 Mg Tablet, 5 MG PO DAILY Prescribed by: LORNA FARMER on 03/06/23 1041 Furosemide (Lasix) 40 Mg Tablet, 40 MG PO DAILY Prescribed by: Trina joyce on 03/11/23 1405 Glecaprevir/Pibrentasvir (Mavyret 100-40 mg Tablet) 100 Mg-40 Mg Tablet, 3 EA PO 1800, (Reported) Entered as Reported by: LORETTA SALVADOR on 03/03/23 1106 Hydrocodone/Acetaminophen (Hydrocodone-Acetamin 5-325 mg) 5 Mg-325 Mg Tablet, 1 TAB PO BID PRN for PAIN-MODERATE (5-7) Prescribed by: LORNA FARMER on 03/06/23 1042 Hydrocodone/Acetaminophen (Hydrocodone-Acetamin 10-325 mg) 10 Mg-325 Mg Tablet, 1 EACH PO Q6H PRN for PAIN SEVERE Prescribed by: ALYSIA GERARD on 03/08/23 2330 Insulin Detemir (Levemir Flexpen) 100 Unit/Ml (3 Ml) Insuln.pen, 16 UNITS SC BID, (Reported) Entered as Reported by: LORETTA SALVADOR on 03/03/23 1106 Ondansetron (Ondansetron Odt) 4 Mg Tab.rapdis, 4 MG PO Q6H PRN for NAUSEA/VOMITING Prescribed by: ALYSIA GERARD on 03/08/23 2329 Ondansetron (Ondansetron Odt) 4 Mg Tab.rapdis, 4 MG PO TID PRN for NAUSEA-1ST LINE Prescribed by: Trina joyce on 03/11/23 1405 Pantoprazole Sodium (Pantoprazole Sodium) 40 Mg Tablet.dr, 40 MG PO DAILY Prescribed by: LORNA FARMER on 03/06/23 1041 Potassium Chloride (Potassium Chloride) 20 Meq Tablet.er, 40 MEQ PO DAILY Prescribed by: Trina joyce on 03/11/23 1405 Review of Systems Review of Systems Constitutional: No fever EENTM: No Symptoms Reported Respiratory: No Symptoms Reported Cardiovascular: No Symptoms Reported Gastrointestinal: See HPI Genitourinary: No Symptoms Reported Musculoskeletal: no symptoms reported Skin: no symptoms reported Psychiatric/Neurological: No Symptoms Reported Endocrine: No Symptoms Reported Hematologic/Lymphatic: No Symptoms Reported Past Xiwzvmy-Vvqyrs-Twdgae Hx Patient Social History Tobacco Use?: Yes Tobacco type used: Cigarettes Smoking Status: Current Everyday Smoker Substance use?: Yes Substance type: Marijuana Alcohol Use?: No Immunizations Up To Date Tetanus Booster (TDap): Unknown First/Initial COVID19 Vaccinat: UNKNOWN DATE Second COVID19 Vaccination [place]: UNKNOWN DATE Third COVID19 Vaccination Date: 09/2021 Seasonal Allergies Seasonal Allergies: No Past Medical History Surgery/Hospitalization HX: Insulin dependent DM, Bipolar, Cassie fundoplication; Hep C +; left rib fx; Marijuana induced cyclic vomiting Surgeries: Yes (UGI, ? Heart Surgery per prior hx family, R lower leg lesion removed) Cardiac, Gallbladder Respiratory: Yes COPD Currently Using CPAP: No Currently Using BIPAP: No Cardiac: Yes (heart surgery at 16mo for hole in heart; [place] 4 months ago, Systolic CHF) Atrial Fibrillation, Cardiomyopathy, Heart Attack, Irregular Heartbeat Neurological: No Genitourinary: No Gastrointestinal: Yes (Gastritis, Duodenitis, frequent alcohol intake, Hep C) Hepatitis Musculoskeletal: Yes Fractures Endocrine: Yes (Refuses to monitor blood sugar and to use insulin) Diabetes, Insulin dep HEENT: No Cancer: No Psychosocial: Yes (polysubstance abuse ) Anxiety Integumentary: Yes (Hidradenitis Suppurative, frequent abscesses, necrotizing fasciitis) Blood Disorders: Yes (Hep C+) Adverse Reaction/Blood Tranf: No Family Medical History No Pertinent Family Hx Physical Exam Vital Signs Vital Signs - First Documented 03/13/23 20:16 Temp 37.0 Pulse 87 Resp 16 B/P (MAP) 170/96 (120) Pulse Ox 99 O2 Delivery Room Air Capillary Refill : Height/Weight/BMI Height: '" Weight: 192lbs. 4.0oz. 87.910751af; 23.00 BMI Method: General Appearance: WD/WN, other (Moaning) HEENT: PERRL/EOMI, normal ENT inspection, pharynx normal Neck: non-tender, full range of motion, supple, normal inspection Respiratory: chest non-tender, lungs clear, normal breath sounds, no respiratory distress, no accessory muscle use Cardiovascular: regular rate, rhythm, no edema, no murmur Gastrointestinal: normal bowel sounds, soft; No distended, No guarding, No rebound; tenderness Extremities: normal range of motion, non-tender, normal inspection, no pedal edema, no calf tenderness, normal capillary refill Back: normal inspection, no CVA tenderness Neurologic/Psychiatric: no motor/sensory deficits, alert, normal mood/affect Skin: normal color, warm/dry Procedures/Interventions Date of ETT Placement: Jul 23, 2019 Time of ETT Placement: 0546 Progress/Results/Core Measures Results/Orders Lab Results Laboratory Tests Test 03/13/23 20:22 03/13/23 20:29 Range/Units Glucometer 207 H 70-110 MG/DL White Blood Count 10.9 4.3-11.0 10^3/uL Red Blood Count 4.05 L 4.30-5.52 10^6/uL Hemoglobin 12.3 L 13.3-17.7 g/dL Hematocrit 36 L 40-54 % Mean Corpuscular Volume 89 80-99 fL Mean Corpuscular Hemoglobin 30 25-34 pg Mean Corpuscular Hemoglobin Concent 34 32-36 g/dL Red Cell Distribution Width 12.0 10.0-14.5 % Platelet Count 393 130-400 10^3/uL Mean Platelet Volume 9.5 9.0-12.2 fL Immature Granulocyte % (Auto) 1 % Neutrophils (%) (Auto) 74 42-75 % Lymphocytes (%) (Auto) 18 12-44 % Monocytes (%) (Auto) 6 0-12 % Eosinophils (%) (Auto) 1 0-10 % Basophils (%) (Auto) 0 0-10 % Neutrophils # (Auto) 8.0 H 1.8-7.8 10^3/uL Lymphocytes # (Auto) 2.0 1.0-4.0 10^3/uL Monocytes # (Auto) 0.7 0.0-1.0 10^3/uL Eosinophils # (Auto) 0.1 0.0-0.3 10^3/uL Basophils # (Auto) 0.0 0.0-0.1 10^3/uL Immature Granulocyte # (Auto) 0.1 0.0-0.1 10^3/uL Sodium Level 138 135-145 MMOL/L Potassium Level 4.1 3.6-5.0 MMOL/L Chloride Level 100 98-107 MMOL/L Carbon Dioxide Level 27 21-32 MMOL/L Anion Gap 11 5-14 MMOL/L Blood Urea Nitrogen 16 7-18 MG/DL Creatinine 1.11 0.60-1.30 MG/DL Estimat Glomerular Filtration Rate 79 BUN/Creatinine Ratio 14 Glucose Level 235 H 70-105 MG/DL Calcium Level 9.3 8.5-10.1 MG/DL Corrected Calcium 9.9 8.5-10.1 MG/DL Total Bilirubin 0.4 0.1-1.0 MG/DL Aspartate Amino Transf (AST/SGOT) 22 5-34 U/L Alanine Aminotransferase (ALT/SGPT) 14 0-55 U/L Alkaline Phosphatase 98 40-136 U/L C-Reactive Protein < 0.30 <0.50 MG/DL Total Protein 6.6 6.4-8.2 GM/DL Albumin 3.3 3.2-4.5 GM/DL Lipase 35 8-78 U/L My Orders Orders - SOUMYA CARRERO MD Cbc With Automated Diff (03/13/23 20:23) Comprehensive Metabolic Panel (03/13/23 20:23) Lipase (03/13/23 20:23) Accucheck Stat ONCE (03/13/23 20:23) Crp Fs (03/13/23 20:23) Ed Iv/Invasive Line Start (03/13/23 20:23) Droperidol Inj (Ed Only) (Inapsine Inj ( (03/13/23 20:30) Diphenhydramine Injection (Benadryl Inje (03/13/23 20:30) Famotidine Tablet (Pepcid Tablet) (03/13/23 20:26) Antacid Suspension (Mylanta Suspension (03/13/23 20:30) Lidocaine 2% Viscous 15 Ml (Xylocaine Vi (03/13/23 20:30) Medications Given in ED Current Medications Medications Dose Ordered Sig/Scarlett Route Start Time Stop Time Status Last Admin Dose Admin Al Hydrox/Mg Hydrox/Simethicone 30 ml ONCE ONCE PO 03/13/23 20:30 03/13/23 20:31 DC 03/13/23 20:35 30 ML Diphenhydramine HCl 12.5 mg ONCE ONCE IVP 03/13/23 20:30 03/13/23 20:31 DC 03/13/23 20:36 12.5 MG Droperidol 2.5 mg ONCE ONCE IV 03/13/23 20:30 03/13/23 20:31 DC 03/13/23 20:37 2.5 MG Lidocaine HCl 15 ml ONCE ONCE PO 03/13/23 20:30 03/13/23 20:31 DC 03/13/23 20:35 15 ML Vital Signs/I&O 03/13/23 20:16 Temp 37.0 Pulse 87 Resp 16 B/P (MAP) 170/96 (120) Pulse Ox 99 O2 Delivery Room Air Progress Progress Note : Progress Note 53-year-old male with above history coming in due to nausea, vomiting, abdominal pain. ABCs were intact and vitals were stable on presentation. He had abdominal pain when examining with him paying attention, but when pushing with the stethoscope otherwise he is not complaining at all. The patient has been seen in the ER innumerable times for similar episodes, and this does seem consistent with his chronic abdominal pain with cyclical vomiting. An IV was placed and basic labs were obtained including blood cell count which is normal, normal CRP, normal creatinine. I reviewed ReVia CT imaging during similar episodes, and they were negative for acute findings. I think is highly unlikely he has appendicitis versus cholecystitis versus some other significant abnormality at this point. He was given IV droperidol as well as Benadryl with significant improvement in symptoms. I will recommend stopping marijuana use. Departure Impression Primary Impression: Abdominal pain Qualified Codes: R10.84 - Generalized abdominal pain Additional Impression: Cyclical vomiting Disposition: 01 HOME, SELF-CARE Condition: Stable Departure-Patient Inst. Decision time for Depature: 21:30 Referrals: ZULMA HERRERA APRN (PCP) Primary Care Physician [facility] (Family) Primary Care Physician Patient Instructions: Nausea and Vomiting, Adult ED Add. Discharge Instructions: We recommend stopping marijuana use for a couple months to completely flush it out of your system. This typically helps people with the cyclical vomiting syndrome that you have. Nausea medicines were sent to your pharmacy. Otherwise take ibuprofen or Tylenol for pain. Scripts Ondansetron (Ondansetron Odt) 4 Mg Tab.rapdis 4 MG SL Q6H PRN for NAUSEA/VOMITING for 5 Days, #20 TAB Prov: SOUMYA CARRERO MD 03/13/23 Work/School Note: Work Release Form Date Seen in the Emergency Department: March 13, 2023 Return to Work: March 15, 2023 Restrictions: Return-No Vomiting(24hrs) SOUMYA CARRERO MD March 13, 2023 20:26
[2023-03-13] MEDS ORDERED: diphenhydrAMINE 50 MG/ML INJ (BENADRYL) IVP ONE (20:30)
[2023-03-13] MEDS ORDERED: ANTACID SUSP 30 ML UDC (MYLANTA) PO ONE (20:30)
[2023-03-13] MEDS ORDERED: LIDOCAINE 2% VISCOUS 15 ML UDC PO ONE (20:30)
[2023-03-13] MEDS ORDERED: DROPERIDOL 5 MG/2 ML (INAPSINE) ED ONLY! IV ONE (20:30)
[2023-03-13 20:34] LABS: BASOPHILS % (AUTO) 0 % (0-10); EOSINOPHILS # (AUTO) 0.1 10^3/uL (0.0-0.3); EOSINOPHILS % (AUTO) 1 % (0-10); HEMATOCRIT 36 % (40-54); HEMOGLOBIN 12.3 g/dL (13.3-17.7); LYMPHOCYTES % (AUTO) 18 % (12-44); MEAN CORPUSCULAR HEMOGLOBIN 30 pg (25-34); MEAN CORPUSCULAR HGB CONC 34 g/dL (32-36); MEAN CORPUSCULAR VOLUME 89 fL (80-99); MEAN PLATELET VOLUME 9.5 fL (9.0-12.2); MONOCYTES # (AUTO) 0.7 10^3/uL (0.0-1.0); MONOCYTES % (AUTO) 6 % (0-12); NEUTROPHILS % (AUTO) 74 % (42-75); PLATELET COUNT 393 10^3/uL (130-400); WHITE BLOOD COUNT 10.9 10^3/uL (4.3-11.0)
[2023-03-13 20:55] LABS: POTASSIUM 4.1 MMOL/L (3.6-5.0); SODIUM 138 MMOL/L (135-145)
[2023-03-13 20:56] LABS: ALANINE AMINOTRANSFERASE 14 U/L (0-55); ALBUMIN 3.3 GM/DL (3.2-4.5); ALKALINE PHOSPHATASE 98 U/L (40-136); BILIRUBIN,TOTAL 0.4 MG/DL (0.1-1.0); BUN/CREATININE RATIO 14; CALCIUM 9.3 MG/DL (8.5-10.1); CARBON DIOXIDE 27 MMOL/L (21-32); CHLORIDE 100 MMOL/L (98-107); CREATININE SERUM 1.11 MG/DL (0.60-1.30); GFR ESTIMATED 79; GLUCOSE 235 MG/DL (70-105); LIPASE 35 U/L (8-78); TOTAL PROTEIN 6.6 GM/DL (6.4-8.2)
[2023-03-13] MEDS ORDERED: ONDA4TAB11 SL (21:18)
== END 2023-03-13 21:20 | disposition home or self-care (01) ==
LOC: EDUNIT# 20:13 → ER FS 20:13
DX: R10.10 Upper abdominal pain, unspecified (principal); R11.15 Cyclical vomiting syndrome unrelated to migraine; F17.210 Nicotine dependence, cigarettes, uncomplicated; Z28.310 Unvaccinated for COVID-19
CPT/HCPCS: 36415; 80053; 82947; 83690; 85025; 86141

== ENCOUNTER 2023-04-05 15:18 | Emergency (ER) | payer MEDICAID ==
[~2023-04-05] VITALS: Ht 193 cm; Wt 80.6 kg
--- NOTE | 2023-04-05 15:24 | ED Integumentary General ---
General Chief Complaint: Head/Cervical Problems Stated Complaint: NECK PAIN History of Present Illness Date Seen by Provider: April 05, 2023 Time Seen by Provider: 15:24 Initial Comments 53-year-old male with known history of MRSA and frequent abscesses presents with a sore on the back of his neck. He just noticed that this morning. Reports that it is very sore and tender. Allergies and Home Medications Allergies Coded Allergies: Penicillins (Unverified Adverse Reaction, Unknown, 07/22/19) Patient Home Medication List Home Medication List Reviewed: Yes Amlodipine Besylate (Amlodipine Besylate) 5 Mg Tablet, 5 MG PO DAILY Prescribed by: LORNA FARMER on 03/06/23 1041 Furosemide (Lasix) 40 Mg Tablet, 40 MG PO DAILY Prescribed by: Trina joyce on 03/11/23 1405 Glecaprevir/Pibrentasvir (Mavyret 100-40 mg Tablet) 100 Mg-40 Mg Tablet, 3 EA PO 1800, (Reported) Entered as Reported by: LORETTA SALVADOR on 03/03/23 1106 Hydrocodone/Acetaminophen (Hydrocodone-Acetamin 5-325 mg) 5 Mg-325 Mg Tablet, 1 TAB PO BID PRN for PAIN-MODERATE (5-7) Prescribed by: LORNA FARMER on 03/06/23 1042 Hydrocodone/Acetaminophen (Hydrocodone-Acetamin 10-325 mg) 10 Mg-325 Mg Tablet, 1 EACH PO Q6H PRN for PAIN SEVERE Prescribed by: ALYSIA GERARD on 03/08/23 2330 Insulin Detemir (Levemir Flexpen) 100 Unit/Ml (3 Ml) Insuln.pen, 16 UNITS SC BID, (Reported) Entered as Reported by: LORETTA SALVADOR on 03/03/23 1106 Ondansetron (Ondansetron Odt) 4 Mg Tab.rapdis, 4 MG PO Q6H PRN for NAUSEA/VOMITING Prescribed by: ALYSIA GERARD on 03/08/23 2329 Ondansetron (Ondansetron Odt) 4 Mg Tab.rapdis, 4 MG PO TID PRN for NAUSEA-1ST LINE Prescribed by: Trina joyce on 03/11/23 1405 Ondansetron (Ondansetron Odt) 4 Mg Tab.rapdis, 4 MG SL Q6H PRN for NAUSEA/VOMITING Prescribed by: SOUMYA CARRERO on 03/13/232117 Pantoprazole Sodium (Pantoprazole Sodium) 40 Mg Tablet.dr, 40 MG PO DAILY Prescribed by: LORNA FARMER on 03/06/23 1041 Potassium Chloride (Potassium Chloride) 20 Meq Tablet.er, 40 MEQ PO DAILY Prescribed by: Trina joyce on 03/11/23 1405 Review of Systems Review of Systems Constitutional: No chills, No fever Respiratory: no symptoms reported Cardiovascular: no symptoms reported Gastrointestinal: no symptoms reported Musculoskeletal: see HPI Skin: see HPI Past Ghuldrv-Rxnsxi-Jjcxza Hx Immunizations Up To Date Tetanus Booster (TDap): Unknown First/Initial COVID19 Vaccinat: UNKNOWN DATE Second COVID19 Vaccination [place]: UNKNOWN DATE Third COVID19 Vaccination Date: 09/2021 Seasonal Allergies Seasonal Allergies: No Past Medical History Surgery/Hospitalization HX: Insulin dependent DM, Bipolar, Cassie fundoplication; Hep C +; left rib fx; Marijuana induced cyclic vomiting Surgeries: Yes (UGI, ? Heart Surgery per prior hx family, R lower leg lesion removed) Cardiac, Gallbladder Respiratory: Yes COPD Currently Using CPAP: No Currently Using BIPAP: No Cardiac: Yes (heart surgery at 16mo for hole in heart; [place] 4 months ago, S ystolic CHF) Atrial Fibrillation, Cardiomyopathy, Heart Attack, Irregular Heartbeat Neurological: No Genitourinary: No Gastrointestinal: Yes (Gastritis, Duodenitis, frequent alcohol intake, Hep C) Hepatitis Musculoskeletal: Yes Fractures Endocrine: Yes (Refuses to monitor blood sugar and to use insulin) Diabetes, Insulin dep HEENT: No Cancer: No Psychosocial: Yes (polysubstance abuse ) Anxiety Integumentary: Yes (Hidradenitis Suppurative, frequent abscesses, necrotizing fasciitis) Blood Disorders: Yes (Hep C+) Adverse Reaction/Blood Tranf: No Family Medical History No Pertinent Family Hx Physical Exam Vital Signs Capillary Refill : General Appearance: WD/WN, no apparent distress HEENT: PERRL/EOMI Neck: other (No acute bony abnormality) Respiratory: lungs clear, normal breath sounds Gastrointestinal: non tender, soft Extremities: normal range of motion, non-tender Skin Problem Location: neck Skin Problem Character: other (Erythema, induration but no palpable fluctuance in the posterior neck midline) Procedures/Interventions Date of ETT Placement: Jul 23, 2019 Time of ETT Placement: 0546 Progress/Results/Core Measures Progress Progress Note : Progress Note Patient with induration and early abscess formation. This time however there is no fluctuance noted and likely too early for I&D. Discussed with him that we will start him on antibiotic both Cleocin and Bactrim, Hibiclens wash. Warm moist compress for the next 24 to 48 hours then recheck with his primary care provider to see if it is ready for incision and drainage. Patient stable and discharged home Departure Impression Primary Impression: Cellulitis due to MRSA Additional Impression: Cutaneous abscess of neck Disposition: HOME, SELF-CARE Condition: Stable Departure-Patient Inst. Referrals: ZULMA HERRERA APRN (PCP) Primary Care Physician [facility] (Family) Primary Care Physician Patient Instructions: Cellulitis (Skin Infection), Adult ED, MRSA (DC) Add. Discharge Instructions: Warm moist compress for 10 to 15 minutes at a time 3-4 times daily. Please follow-up with a primary care provider for rechecked in approximately 36 to 48 hours to see if it is softened and formed an abscess that is drainable. Wash with Hibiclens that is available [id number] 3-4 times daily. Please use antibiotics as prescribed. All discharge instructions reviewed with patient and/or family. Voiced understa nding. Scripts Sulfamethoxazole/Trimethoprim (Bactrim Ds Tablet) 1 Each Tablet 1 EACH PO BID for 10 Days, #20 TAB Prov: ADAM,TREMAYNE L DO 04/05/23 Clindamycin Phosphate (Cleocin T) 1 % Lotion 60 ML TP TID for 10 Days, #60 ML Prov: ADAM,TREMAYNE L DO 04/05/23 ADAM,TREMAYNE L DO April 05, 2023 15:24
[2023-04-05 15:25] VITALS: BP 126/81
[2023-04-05] MEDS ORDERED: SULF1TAB38 PO (15:35)
[2023-04-05] MEDS ORDERED: CLIN60LO TP (15:35)
== END 2023-04-05 15:36 | disposition home or self-care (01) ==
LOC: EDUNIT# 15:18 → ER FS 15:21
DX: L03.221 Cellulitis of neck (principal); B95.62 Methicillin resistant Staphylococcus aureus infection as the cause of diseases classified elsewhere; L02.11 Cutaneous abscess of neck; Z88.0 Allergy status to penicillin; Z88.2 Allergy status to sulfonamides
CPT/HCPCS: 99282

== ENCOUNTER 2023-04-12 06:20 | Outpatient (CLI) | payer MEDICAID ==
[~2023-04-12] VITALS: Ht 195.6 cm; Wt 84.1 kg
[~2023-04-12 06:20] MED LIST changes: +CLIN60LO TP; +POTA-330 PO; -POTA-51 PO
== END 2023-04-24 08:36 | disposition home or self-care (01) ==
LOC: PREOP 06:20
PROVIDERS: ATTEND Surgery
DX: Z01.818 Encounter for other preprocedural examination (principal)

== ENCOUNTER 2023-04-25 09:58 | Day surgery (SDC) | payer MEDICAID ==
[2023-04-25] VITALS (7 sets, daily range): BP systolic 81–146; BP diastolic 55–94
[~2023-04-25] VITALS: Ht 196 cm; Wt 84.1 kg
[2023-04-25] MEDS ORDERED: LACTATED RINGERS 1,000 ML IV STA (10:06)
[2023-04-25] MEDS ORDERED: HURRICAINE EXT TUBE (BENZOCAINE) XX PRN (10:15)
[2023-04-25 10:26] LABS: AMPHETAMINE SCREEN, URINE NEGATIVE (NEGATIVE); BARBITURATE SCREEN URINE NEGATIVE (NEGATIVE); BENZODIAZEPINES SCREEN URINE NEGATIVE (NEGATIVE); CANNABINOID SCREEN, URINE POSITIVE (NEGATIVE); COCAINE SCREEN URINE NEGATIVE (NEGATIVE); METHADONE STAT NEGATIVE (NEGATIVE); OPIATE SCREEN URINE NEGATIVE (NEGATIVE); OXYCODONE STAT NEGATIVE (NEGATIVE); PROPOXYPHENE STAT NEGATIVE (NEGATIVE); TRICYCLIC ANTIDEPRESSANTS SCRE NEGATIVE (NEGATIVE)
[2023-04-25] MEDS ORDERED: PROPOFOL INJECTION 50 ML IV ONE ×2 (12:02→12:13)
[2023-04-25] MEDS ORDERED: MIDAZOLAM 2 MG/2 ML (VERSED) VIAL ONE (12:02)
--- NOTE | 2023-04-25 13:43 | Progress Note-Post Operative ---
Post-Operative Progess Note Surgeon (s)/Model Builder (s) Surgeon GLENN VANN DO Model Builder: na Pre-Operative Diagnosis gerd, abd pain, screening colonoscopy Post-Operative Diagnosis normal egd, poor prep Procedure & Operative Findings Date of Procedure 04/25/23 Procedure Performed/Findings egd c biopsies, flex sig poor prep Anesthesia Type per transition mgr Estimated Blood Loss Estimated blood loss (mL): none Specimens/Packing Specimens Removed antrum, ge GLENN VANN DO Apr 25, 2023 13:43
--- NOTE | 2023-04-25 14:05 | Anesthesia-General Post-Op ---
MAC Patient Condition Mental Status/LOC: Same as Preop Cardiovascular: Satisfactory Nausea/Vomiting: Absent Respiratory: Satisfactory Pain: Controlled Complications: Absent Post Op Complications Complications None Follow Up Care/Instructions Patient Instructions None needed. Anesthesiology Discharge Order Discharge Order Patient is doing well, no complaints, stable vital signs, no apparent adverse anesthesia problems. No complications reported per nursing. MINAL ROSARIO CRNA Apr 25, 2023 14:05
--- NOTE | 2023-04-25 21:12 | OPERATIVE REPORT ---
DATE OF SERVICE: 04/25/2023 PREOPERATIVE DIAGNOSES: Gastroesophageal reflux disease, abdominal pain, screening colonoscopy. POSTOPERATIVE DIAGNOSES: Normal esophagogastroduodenoscopy, poor prep. PROCEDURES: EGD with biopsies, flexible sigmoidoscopy, poor prep. SURGEON: Glenn Bonilla DO ANESTHESIA: Per CYLINDER HONER. ESTIMATED BLOOD LOSS: None. COMPLICATIONS: None. SPECIMENS: Antrum, GE junction. INDICATIONS: The patient is a 53-year-old male with GERD symptoms of abdominal pain and needing screening colonoscopy. He understands risks and benefits of procedure and wished to proceed. Consent was signed in chart. DESCRIPTION OF PROCEDURE: The patient was taken to endoscopy suite, placed in left lateral recumbent position. Timeout was performed. Scope was inserted in the mouth, down the esophagus, stomach, into the duodenum without difficulty. No polyps, masses or ulcerations. Scope was slowly retracted back into the stomach where it was further insufflated. No polyps, masses or ulcerations. Biopsy of the antrum was obtained. Scope was retroflexed noting no other pathology. Scope was returned to its normal position, slowly withdrawn until distal esophagus. Biopsy of GE junction was obtained. No polyps, masses or ulcerations. Scope was slowly retracted back until completely removed. Digital rectal exam was performed noting some stool in the rectal vault. Scope was inserted in the rectum, noting stool within the rectal vault and suctioned this out. This was more of mix of liquid and solid. Advanced further into the sigmoid where there is more solid stool present, which could not get pass. At this time, we decided to discontinue the scope due to the poor prep. Scope was then slowly retracted back, noting no gross pathology. Scope was completely removed. The patient tolerated the procedure well without any complications, taken to recovery room in stable condition. RECOMMENDATIONS: The patient to continue on current medications. We will have him follow up in a couple of weeks. We will need to discuss two-day prep for further evaluation. Job ID: [id number] DocumentID: [id number] Dictated Date: 04/25/2023 13:46:15 Compress Trucker Date: 04/25/2023 21:10:00 Dictated By: GLENN BONILLA DO
== END 2023-04-25 13:24 | disposition home or self-care (01) ==
LOC: ENDO 09:58
PROVIDERS: ATTEND Surgery
DX: Z12.11 Encounter for screening for malignant neoplasm of colon (principal); K21.9 Gastro-esophageal reflux disease without esophagitis; K31.89 Other diseases of stomach and duodenum; F17.210 Nicotine dependence, cigarettes, uncomplicated
CPT/HCPCS: 80306; 82947

== ENCOUNTER 2023-07-16 17:51 | Emergency (ER) | payer MEDICAID ==
[~2023-07-16] VITALS: Ht 193 cm; Wt 81.6 kg
[~2023-07-16 17:51] MED LIST changes: -INSU100I48 SQ; +INSU100I64 SQ
--- NOTE | 2023-07-16 17:59 | ED Abdominal Pain ---
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 Patient is denying drug use at this time. Denies fever and chills, URI symptoms, chest pain, shortness of breath, diarrhea. No known sick contacts. Patient has not been eating or drinking anything today due to nausea and vomiting. Allergies and Home Medications Allergies Coded Allergies: Penicillins (Unverified Adverse Reaction, Unknown, 07/22/19) Patient Home Medication List Home Medication List Reviewed: Yes Insulin Detemir (Levemir Flexpen) 100 Unit/Ml (3 Ml) Insuln.pen, 14 UNITS SC BID, (Reported) Entered as Reported by: LORETTA SALVADOR on 03/03/23 1106 Review of Systems Review of Systems Constitutional: no symptoms reported EENTM: No Symptoms Reported Respiratory: No Symptoms Reported Cardiovascular: No Symptoms Reported Gastrointestinal: Abdominal Pain, Nausea, Poor Appetite, Vomiting Genitourinary: No Symptoms Reported Musculoskeletal: no symptoms reported Skin: no symptoms reported Psychiatric/Neurological: No Symptoms Reported Endocrine: No Symptoms Reported Hematologic/Lymphatic: No Symptoms Reported Past Dqvnxhj-Ftcaec-Qfsizx Hx Immunizations Up To Date Tetanus Booster (TDap): Unknown First/Initial COVID19 Vaccinat: UNKNOWN DATE Second COVID19 Vaccination [place]: UNKNOWN DATE Third COVID19 Vaccination Date: 09/2021 Seasonal Allergies Seasonal Allergies: No Past Medical History Surgery/Hospitalization HX: Insulin dependent DM, Bipolar, Cassie fundoplication; Hep C +; left rib fx; Marijuana induced cyclic vomiting Surgeries: Yes ( gastric bypass? R lower leg lesion removed, I&D of abscess, heart sx 16mo) Cardiac, Gallbladder Respiratory: Yes COPD Currently Using CPAP: No Currently Using BIPAP: No Cardiac: Yes (heart surgery at 16mo for hole in heart; [place] ?, Systolic CHF, ?G[place] B) Atrial Fibrillation, Cardiomyopathy, Heart Attack, Irregular Heartbeat Neurological: No Genitourinary: No Gastrointestinal: Yes (Gastritis, Duodenitis, frequent alcohol intake, Hep C treated) Hepatitis Musculoskeletal: Yes Fractures Endocrine: Yes (Refuses to monitor blood sugar ) Diabetes, Insulin dep, Diabetes, Non-Insulin dep HEENT: No Cancer: No Psychosocial: Yes (polysubstance abuse ) Anxiety Integumentary: Yes (Hidradenitis Suppurative, frequent abscesses, necrotizing fasciitis) Blood Disorders: Yes (Hep C+) Adverse Reaction/Blood Tranf: No Family Medical History No Pertinent Family Hx Physical Exam Vital Signs Vital Signs - First Documented 07/16/23 17:58 Temp 36.7 Pulse 87 Resp 18 B/P (MAP) 165/113 (130) O2 Delivery Room Air Capillary Refill : Height/Weight/BMI Height: '" Weight: 192lbs. 4.0oz. 87.102282mu; 21.89 BMI Method: General Appearance: WD/WN, moderate distress HEENT: PERRL/EOMI, normal ENT inspection Neck: non-tender, full range of motion, supple, normal inspection Respiratory: lungs clear Cardiovascular: regular rate, rhythm Gastrointestinal: normal bowel sounds, soft, no organomegaly, tenderness (Generalized abdominal tenderness) Extremities: normal range of motion Back: no CVA tenderness, no vertebral tenderness Neurologic/Psychiatric: alert, oriented x 3 Skin: normal color Focused Exam Lactate Level 07/16/23 18:23: Lactic Acid Level 1.28 Lactic Acid Level Laboratory Tests Test 07/16/23 18:23 Lactic Acid Level 1.28 MMOL/L (0.50-2.00) Procedures/Interventions Date of ETT Placement: Jul 23, 2019 Time of ETT Placement: 05 Progress/Results/Core Measures Results/Orders Lab Results Laboratory Tests Test 07/16/23 18:23 Range/Units White Blood Count 14.6 H 4.3-11.0 10^3/uL Red Blood Count 4.73 4.30-5.52 10^6/uL Hemoglobin 14.5 13.3-17.7 g/dL Hematocrit 43 40-54 % Mean Corpuscular Volume 92 80-99 fL Mean Corpuscular Hemoglobin 31 25-34 pg Mean Corpuscular Hemoglobin Concent 34 32-36 g/dL Red Cell Distribution Width 11.9 10.0-14.5 % Platelet Count 336 130-400 10^3/uL Mean Platelet Volume 9.7 9.0-12.2 fL Immature Granulocyte % (Auto) 0 % Neutrophils (%) (Auto) 82 H 42-75 % Lymphocytes (%) (Auto) 12 12-44 % Monocytes (%) (Auto) 6 0-12 % Eosinophils (%) (Auto) 1 0-10 % Basophils (%) (Auto) 1 0-10 % Neutrophils # (Auto) 11.9 H 1.8-7.8 10^3/uL Lymphocytes # (Auto) 1.7 1.0-4.0 10^3/uL Monocytes # (Auto) 0.8 0.0-1.0 10^3/uL Eosinophils # (Auto) 0.1 0.0-0.3 10^3/uL Basophils # (Auto) 0.1 0.0-0.1 10^3/uL Immature Granulocyte # (Auto) 0.1 0.0-0.1 10^3/uL Neutrophils % (Manual) 83 % Lymphocytes % (Manual) 8 % Monocytes % (Manual) 8 % Eosinophils % (Manual) 1 % Sodium Level 139 135-145 MMOL/L Potassium Level 4.6 3.6-5.0 MMOL/L Chloride Level 101 98-107 MMOL/L Carbon Dioxide Level 26 21-32 MMOL/L Anion Gap 12 5-14 MMOL/L Blood Urea Nitrogen 25 H 7-18 MG/DL Creatinine 1.25 0.60-1.30 MG/DL Estimat Glomerular Filtration Rate 69 BUN/Creatinine Ratio 20 Glucose Level 184 H 70-105 MG/DL Lactic Acid Level 1.28 0.50-2.00 MMOL/L Calcium Level 10.9 H 8.5-10.1 MG/DL Corrected Calcium 10.7 H 8.5-10.1 MG/DL Magnesium Level 1.9 1.6-2.4 MG/DL Total Bilirubin 0.3 0.1-1.0 MG/DL Aspartate Amino Transf (AST/SGOT) 16 5-34 U/L Alanine Aminotransferase (ALT/SGPT) 12 0-55 U/L Alkaline Phosphatase 97 40-136 U/L Troponin I < 0.30 <0.30 NG/ML Total Protein 7.3 6.4-8.2 GM/DL Albumin 4.2 3.2-4.5 GM/DL Lipase 57 8-78 U/L Influenza Type A (RT-PCR) Not Detected Not Detecte Influenza Type B (RT-PCR) Not Detected Not Detecte SARS-CoV-2 RNA (RT-PCR) Detected H Not Detecte My Orders Orders - BARBARA GUADARRAMA MD Influenza A And B By Pcr (07/16/23 17:59) Covid 19 Inhouse Test (07/16/23 17:59) Cbc With Automated Diff (07/16/23 18:00) Comprehensive Metabolic Panel (07/16/23 18:00) Drug Screen Stat (Urine) (07/16/23 18:00) Lactic Acid Analyzer (07/16/23 18:00) Lipase (07/16/23 18:00) Magnesium (07/16/23 18:00) Ua Culture If Indicated (07/16/23 18:00) Troponin I Fs (07/16/23 18:00) Manual Differential (07/16/23 18:23) Ct Abdomen/Pelvis W (07/16/23 18:38) Ondansetron Injection (Ondansetron Inj (07/16/23 18:45) Ed Iv/Invasive Line Start (07/16/23 18:38) Ns Iv 1000 Ml (Ns Iv 1000 Ml) (07/16/23 18:45) Ketorolac Injection (Ketorolac Injection (07/16/23 19:00) Iohexol Injection (Omnipaque 350 Mg/Ml 1 (07/16/23 19:15) Received Contrast (Hold Metformin- Contr (07/16/23 19:15) Ns (Ivpb) 100 Ml (Sodium Chloride 0.9% 1 (07/16/23 19:15) Acetaminophen Tablet (Acetaminophen Ta (07/16/23 19:30) Medications Given in ED Current Medications Medications Dose Ordered Sig/Scarlett Route Start Time Stop Time Status Last Admin Dose Admin Acetaminophen 1,000 mg ONCE ONCE PO 07/16/23 19:30 07/16/23 19:31 DC 07/16/23 19:33 1,000 MG Iohexol 100 ml ONCE ONCE IV 07/16/23 19:15 07/16/23 19:16 DC 07/16/23 19:53 80 ML Ketorolac Tromethamine 15 mg ONCE ONCE IVP 07/16/23 19:00 07/16/23 19:01 DC 07/16/23 19:02 15 MG Ondansetron HCl 4 mg ONCE ONCE IVP 07/16/23 18:45 07/16/23 18:46 DC 07/16/23 18:42 4 MG Sodium Chloride 100 ml ONCE ONCE IV 07/16/23 19:15 07/16/23 19:16 DC 07/16/23 19:53 100 ML Vital Signs/I&O 07/16/23 17:58 Temp 36.7 Pulse 87 Resp 18 B/P (MAP) 165/113 (130) O2 Delivery Room Air Progress Progress Note : Progress Note 1. COVID POSITIVE WITH GASTROINTESTINAL SYMPTOMS & CYCLICAL VOMITING SYNDROME: - CT ABD: no acute findings - UA/ UDS:pt refuses to give urine in spite of going to the bathroom multiple times - CBC: WBC is elevated: 14.6 - Lactic acid level is normal - CMP: Unremarkable - Troponin: undetectable - COVID positive - Lipase negative - NS IVF bolus/ Zofran iv/ Toradol iv STAT - Advised pt to stop using marijuana as this is triggering cyclical vomiting -Adequate hydration and nutrition advised -Quarantine for the next 5 days -Advised vitamin C and zinc, and vitamin D which is [id number] -Advised Tylenol or ibuprofen as needed for fever or body aches -Take-home pack of Zofran given, to be taken every 6 hours for nausea and vomiting as needed -Follow-up with PCP within the next 7 days. -The patient was seen in the ED, and treated appropriately to presentation at a specific point in time. Patient is informed that there is a possibility that disease and illness can evolve and change in acuity rapidly or slowly after patient is discharged from the ER. Precautionary advice given to the patient for immediate return to ER if symptoms worsen or do not resolve, and to seek emergency care sooner rather than later. Pt also advised on the importance of PCP follow up and compliance with management and follow up plan with PCP and/or specialist, as this is part of the management plan. Pt verbally expressed understanding. Diagnostic Imaging Diagonstic Imaging: CT Plain Films/CT/US/NM/MRI: abdomen Comments NAME: [facility] REC#: [id number] PT STATUS: REG ER : 1970 PHYSICIAN: BARBARA GUADARRAMA MD ADMIT DATE: 07/16/23/ER FS Draft Date of Exam:07/16/23 CT ABDOMEN/PELVIS W PROCEDURE: CT abdomen and pelvis with contrast. TECHNIQUE: Multiple contiguous axial images were obtained through the abdomen and pelvis after administration of intravenous contrast. Auto Exposure Controls were utilized during the CT exam to meet ALARA standards for radiation dose reduction. All CT scans use one or more of the following dose optimizing techniques: automated exposure control, MA and/or KvP adjustment based on patient size and exam type or iterative reconstruction. INDICATION: Abdominal pain and nausea. Vomiting. Elevated white blood cell count. COMPARISON: 01/08/2023. FINDINGS: Lung bases are clear. There is no pneumonia or edema. There is no pleural or pericardial effusion. The liver demonstrates no focal abnormality. Patient is status post prior cholecystectomy. There is no abnormal biliary dilatation. Pancreas atrophic. Spleen normal in size. There is no adrenal mass. Kidneys enhance normally and appear nonobstructed. The stomach is nondistended. There is no finding of abnormal small or large bowel dilation. The appendix is well-visualized and is normal. There is unchanged diverticulosis without current finding of diverticulitis. There is no finding of free fluid. There is no free air. There is no abscess. The bladder is nondistended which accentuates bladder wall thickness. There is no abdominal or pelvic adenopathy. There is atherosclerotic calcification within a normal caliber aorta. There is no finding of an acute osseous abnormality. IMPRESSION: 1. No CT evidence of an acute inflammatory or obstructive process within the abdomen or pelvis. 2. Uncomplicated diverticulosis. The appendix is normal. There is no bowel obstruction. 3. Prior cholecystectomy. 4. No hydronephrosis. 5. No free fluid or focal inflammation in the omentum or mesentery. Dictated on workstation # [id number] Dict: 07/16/231999 Trans: 07/16/232053 [facility] [id number] Interpreted by: NEY ROBINS MD Electronically signed by: Departure Impression Primary Impression: COVID-19 Additional Impressions: GI symptoms Cyclical vomiting syndrome Disposition: 01 HOME, SELF-CARE Condition: Stable Departure-Patient Inst. Referrals: ZULMA HERRERA APRN (PCP) Primary Care Physician [facility] (Family) Primary Care Physician Patient Instructions: Nausea and Vomiting, Adult (DC), COVID-19 overview, Nirmatrelvir and Ritonavir FDA Fact Sheet Add. Discharge Instructions: - Advised pt to stop using marijuana as this is triggering cyclical vomiting -Adequate hydration and nutrition advised -Quarantine for the next 5 days -Advised vitamin C and zinc, and vitamin D which is [id number] -Advised Tylenol or ibuprofen as needed for fever or body aches -Take-home pack of Zofran given, to be taken every 4 to 6 hours for nausea and vomiting as needed -Follow-up with PCP within the next 7 days. - Paxlovid prescription given, take twice a day for 5 days Scripts Nirmatrelvir/Ritonavir (Paxlovid 300-100 mg Pack (Eua)) 300 Mg (150 Mg X 2)-100 Mg Tab.ds.pk 1 EACH PO BID for 5 Days, #10 PKG Prov: BARBARA GUADARRAMA MD 07/16/23 BARBARA GUADARRAMA MD Jul 16, 2023 17:59
[2023-07-16 18:28] LABS: BASOPHILS # (AUTO) 0.1 10^3/uL (0.0-0.1); BASOPHILS % (AUTO) 1 % (0-10); EOSINOPHILS # (AUTO) 0.1 10^3/uL (0.0-0.3); EOSINOPHILS % (AUTO) 1 % (0-10); HEMATOCRIT 43 % (40-54); HEMOGLOBIN 14.5 g/dL (13.3-17.7); LYMPHOCYTES # (AUTO) 1.7 10^3/uL (1.0-4.0); LYMPHOCYTES % (AUTO) 12 % (12-44); MEAN CORPUSCULAR HEMOGLOBIN 31 pg (25-34); MEAN CORPUSCULAR HGB CONC 34 g/dL (32-36); MEAN CORPUSCULAR VOLUME 92 fL (80-99); MEAN PLATELET VOLUME 9.7 fL (9.0-12.2); MONOCYTES # (AUTO) 0.8 10^3/uL (0.0-1.0); MONOCYTES % (AUTO) 6 % (0-12); NEUTROPHILS # (AUTO) 11.9 10^3/uL (1.8-7.8); NEUTROPHILS % (AUTO) 82 % (42-75); PLATELET COUNT 336 10^3/uL (130-400); WHITE BLOOD COUNT 14.6 10^3/uL (4.3-11.0)
[2023-07-16] MEDS ORDERED: NS IV 1000 ML 1,000 ML IV SCH (18:45)
[2023-07-16] MEDS ORDERED: ONDANSETRON INJECTION 4 MG/2 ML (SDV) IVP ONE (18:45)
[2023-07-16 18:51] LABS: BUN/CREATININE RATIO 20; CARBON DIOXIDE 26 MMOL/L (21-32); CHLORIDE 101 MMOL/L (98-107); CREATININE SERUM 1.25 MG/DL (0.60-1.30); GFR ESTIMATED 69; POTASSIUM 4.6 MMOL/L (3.6-5.0); SODIUM 139 MMOL/L (135-145)
[2023-07-16 18:52] LABS: ALANINE AMINOTRANSFERASE 12 U/L (0-55); ALBUMIN 4.2 GM/DL (3.2-4.5); ALKALINE PHOSPHATASE 97 U/L (40-136); BILIRUBIN,TOTAL 0.3 MG/DL (0.1-1.0); CALCIUM 10.9 MG/DL (8.5-10.1); GLUCOSE 184 MG/DL (70-105); LIPASE 57 U/L (8-78); MAGNESIUM 1.9 MG/DL (1.6-2.4); TOTAL PROTEIN 7.3 GM/DL (6.4-8.2)
[2023-07-16 18:59] LABS: EOSINOPHILS % (MANUAL) 1 %; LYMPHOCYTES % (MANUAL) 8 %; MONOCYTES % (MANUAL) 8 %; NEUTROPHILS % (MANUAL) 83 %
[2023-07-16] MEDS ORDERED: KETOROLAC INJ 15 MG/ML VIAL IVP ONE (19:00)
[2023-07-16] MEDS ORDERED: IOHEXOL 350 MG/ML 100 ML (OMNIPAQUE 350) VIAL IV ONE (19:15)
[2023-07-16] MEDS ORDERED: HOLD METFORMIN - RECEIVED CONTRAST 20 ML VIAL IV SCH (19:15)
[2023-07-16] MEDS ORDERED: NS 100 ML (IVPB) BAG IV ONE (19:15)
[2023-07-16] MEDS ORDERED: ACETAMINOPHEN 500 MG TABLET PO ONE (19:30)
--- NOTE | 2023-07-16 20:54 | Diagnostic Imaging Report ---
PROCEDURE: CT abdomen and pelvis with contrast. TECHNIQUE: Multiple contiguous axial images were obtained through the abdomen and pelvis after administration of intravenous contrast. Auto Exposure Controls were utilized during the CT exam to meet ALARA standards for radiation dose reduction. All CT scans use one or more of the following dose optimizing techniques: automated exposure control, MA and/or KvP adjustment based on patient size and exam type or iterative reconstruction. INDICATION: Abdominal pain and nausea. Vomiting. Elevated white blood cell count. COMPARISON: 01/08/2023. FINDINGS: Lung bases are clear. There is no pneumonia or edema. There is no pleural or pericardial effusion. The liver demonstrates no focal abnormality. Patient is status post prior cholecystectomy. There is no abnormal biliary dilatation. Pancreas atrophic. Spleen normal in size. There is no adrenal mass. Kidneys enhance normally and appear nonobstructed. The stomach is nondistended. There is no finding of abnormal small or large bowel dilation. The appendix is well-visualized and is normal. There is unchanged diverticulosis without current finding of diverticulitis. There is no finding of free fluid. There is no free air. There is no abscess. The bladder is nondistended which accentuates bladder wall thickness. There is no abdominal or pelvic adenopathy. There is atherosclerotic calcification within a normal caliber aorta. There is no finding of an acute osseous abnormality. IMPRESSION: 1. No CT evidence of an acute inflammatory or obstructive process within the abdomen or pelvis. 2. Uncomplicated diverticulosis. The appendix is normal. There is no bowel obstruction. 3. Prior cholecystectomy. 4. No hydronephrosis. 5. No free fluid or focal inflammation in the omentum or mesentery. Dictated by: Dictated on workstation # [id number]
[2023-07-16] MEDS ORDERED: RX-ONDANSETRON 4 MG ODT (ZOFRAN) PPK #4 PO STA (20:57)
[2023-07-16] MEDS ORDERED: RX-ONDANSETRON 4 MG ODT (ZOFRAN) PPK #4 ONE (20:59)
[2023-07-16] MEDS ORDERED: NIRM1TAB PO (21:06)
[2023-07-16 21:08] VITALS: BP 146/92
== END 2023-07-16 21:09 | disposition home or self-care (01) ==
LOC: EDUNIT# 17:51 → ER FS 17:52
DX: U07.1 COVID-19 (principal); R11.15 Cyclical vomiting syndrome unrelated to migraine; R10.84 Generalized abdominal pain; E11.9 Type 2 diabetes mellitus without complications; Z90.49 Acquired absence of other specified parts of digestive tract; Z79.4 Long term (current) use of insulin
CPT/HCPCS: 36415; 74177; 80053; 83605; 83690; 83735; 84484; 85007; 85027; 87636; Q9967

== ENCOUNTER 2023-07-17 08:40 | Emergency (ER) | payer MEDICAID ==
[~2023-07-17 08:40] MED LIST changes: +NIRM1TAB PO
[2023-07-17] MEDS ORDERED: FAMOTIDINE INJ 20MG/2ML VIAL IV STA (08:44)
[2023-07-17] MEDS ORDERED: NS IV 1000 ML 1,000 ML IV STA (08:44)
[2023-07-17] MEDS ORDERED: diphenhydrAMINE INJ 50 MG/ML VIAL IV STA (08:44)
--- NOTE | 2023-07-17 08:44 | ED General ---
General Chief Complaint: COVID19 Suspect/Confirmed Stated Complaint: VOMITING History of Present Illness Date Seen by Provider: Jul 17, 2023 Time Seen by Provider: 08:44 Initial Comments 53-year-old male presents with "vomiting" patient reports he has been "spitting up acid only" patient has been seen numerous times for the same thing. Patient was positive for COVID yesterday and was seen in the ER. No shortness of breath reported. Allergies and Home Medications Allergies Coded Allergies: Penicillins (Unverified Adverse Reaction, Unknown, 07/22/19) Patient Home Medication List Home Medication List Reviewed: Yes Insulin Detemir (Levemir Flexpen) 100 Unit/Ml (3 Ml) Insuln.pen, 14 UNITS SC BID, (Reported) Entered as Reported by: LORETTA SALVADOR on 03/03/23 1106 Nirmatrelvir/Ritonavir (Paxlovid 300-100 mg Pack (Eua)) 300 Mg (150 Mg X 2)-100 Mg Tab.ds.pk, 1 EACH PO BID Prescribed by: BARBARA GUADARRAMA MD on 07/16/232105 Review of Systems Review of Systems Constitutional: malaise Respiratory: cough; No short of breath Cardiovascular: No chest pain Gastrointestinal: nausea, vomiting Genitourinary: no symptoms reported Musculoskeletal: no symptoms reported Skin: no symptoms reported Past Xwhwpse-Ssqcnk-Mxnbij Hx Immunizations Up To Date Tetanus Booster (TDap): Unknown First/Initial COVID19 Vaccinat: UNKNOWN DATE Second COVID19 Vaccination [place]: UNKNOWN DATE Third COVID19 Vaccination Date: 09/2021 Seasonal Allergies Seasonal Allergies: No Past Medical History Surgery/Hospitalization HX: Insulin dependent DM, Bipolar, Cassie fundoplication; Hep C +; left rib fx; Marijuana induced cyclic vomiting Surgeries: Yes ( gastric bypass? R lower leg lesion removed, I&D of abscess, heart sx 16mo) Cardiac, Gallbladder Respiratory: Yes COPD Currently Using CPAP: No Currently Using BIPAP: No Cardiac: Yes (heart surgery at 16mo for hole in heart; [place] ?, Systolic CHF, ?[place]IB) Atrial Fibrillation, Cardiomyopathy, Heart Attack, Irregular Heartbeat Neurological: No Genitourinary: No Gastrointestinal: Yes (Gastritis, Duodenitis, frequent alcohol intake, Hep C treated) Hepatitis Musculoskeletal: Yes Fractures Endocrine: Yes (Refuses to monitor blood sugar ) Diabetes, Insulin dep, Diabetes, Non-Insulin dep HEENT: No Cancer: No Psychosocial: Yes (polysubstance abuse ) Anxiety Integumentary: Yes (Hidradenitis Suppurative, frequent abscesses, necrotizing fasciitis) Blood Disorders: Yes (Hep C+) Adverse Reaction/Blood Tranf: No Family Medical History No Pertinent Family Hx Physical Exam Vital Signs Vital Signs - First Documented 07/17/23 08:45 Temp 36.5 Pulse 90 Resp 16 B/P (MAP) 109/86 (94) Pulse Ox 98 O2 Delivery Room Air Capillary Refill : Height, Weight, BMI Height: '" Weight: 192lbs. 4.0oz. 87.030194qq; 21.00 BMI Method: General Appearance: Other (Disheveled/unkept) Neck: Full Range of Motion, Normal Inspection Respiratory: Lungs Clear, Normal Breath Sounds Cardiovascular: Regular Rate, Rhythm, No Edema Gastrointestinal: Soft; No Distended Extremity: Normal Capillary Refill, Normal Inspection, Normal Range of Motion Neurologic/Psychiatric: Oriented x3 Skin: Normal Color, Warm/Dry Procedures/Interventions Date of ETT Placement: Jul 23, 2019 Time of ETT Placement: 545 Progress/Results/Core Measures Suspected Sepsis SIRS Temperature: Pulse: Respiratory Rate: Blood Pressure / Mean: Results/Orders My Orders Orders - TREMAYNE ADAM DO Ns Iv 1000 Ml (Ns Iv 1000 Ml) (07/17/23 08:44) Famotidine Injection (Famotidine Injec (07/17/23 08:44) Haloperidol Injection (Haloperidol Injec (07/17/23 08:45) Diphenhydramine Injection (Diphenhydram (07/17/23 08:44) Medications Given in ED Vital Signs/I&O 07/17/23 07/17/23 08:45 09:38 Temp 36.5 36.5 Pulse 90 90 Resp 16 16 B/P (MAP) 109/86 (94) 109/86 Pulse Ox 98 98 O2 Delivery Room Air Room Air Capillary Refill : Progress Note : Progress Note Patient with known COVID. Patient was treated with IV fluids, Pepcid Zofran. He was feeling better. Patient has known chronic abdominal pain. Patient with no further work-up indicated since he just had one yesterday. He was stable and discharged home. Departure Impression Primary Impression: COVID-19 Additional Impression: Chronic abdominal pain Disposition: 01 HOME, SELF-CARE Condition: Stable Departure-Patient Inst. Referrals: ZULMA HERRERA APRN (PCP) Primary Care Physician [facility] (Family) Primary Care Physician Patient Instructions: CLEAR LIQUID DIET ADULT/CHILD, COVID-19 Tests, Stomach ache and stomach upset Add. Discharge Instructions: Clear liquid diet, advance as tolerated. Please fill your prescriptions from yesterday. All discharge instructions reviewed with patient and/or family. Voiced understanding. TREMAYNE ADAM DO Jul 17, 2023 08:44
[2023-07-17] MEDS ORDERED: HALOPERIDOL INJECTION 5 MG/ML VIAL IV ONE (08:45)
[2023-07-17 09:38] VITALS: BP 109/86
== END 2023-07-17 09:39 | disposition home or self-care (01) ==
LOC: EDUNIT# 08:40 → ER FS 08:41
DX: U07.1 COVID-19 (principal); G89.29 Other chronic pain; R10.9 Unspecified abdominal pain; R11.10 Vomiting, unspecified; Z87.19 Personal history of other diseases of the digestive system; Z28.310 Unvaccinated for COVID-19; Z73.0 Burn-out
CPT/HCPCS: 99283

== ENCOUNTER 2023-09-11 13:54 | Emergency (ER) | payer MEDICAID ==
[~2023-09-11] VITALS: Ht 193 cm; Wt 82.0 kg
[2023-09-11 14:00] VITALS: BP 119/86
--- NOTE | 2023-09-11 14:05 | ED GI ---
General Chief Complaint: Abdominal/GI Problems Stated Complaint: VOMITING; ABD PAIN Source of Information: Patient Exam Limitations: No Limitations History of Present Illness Date Seen by Provider: Sep 11, 2023 Time Seen by Provider: 13:53 Initial Comments 53-year-old male presents the emergency department today for abdominal pain. Pa in is in his mid abdomen described as a burning type sensation, cramping without radiation. No aggravating or alleviating factors. He is vomiting. He has had this happen several times in the past and states it happens typically 2 or 3 times a month. He had an upper endoscopy few months ago which was negative for any acute pathology. He has had multiple CT scans and work-ups for this in the past all of which have not revealed any obvious cause of his symptoms. He had a normal bowel movement yesterday. He is having normal urination. All other systems reviewed and negative except documented per HPI. Voice recognition software was used to help create this chart Allergies and Home Medications Allergies Coded Allergies: Penicillins (Unverified Adverse Reaction, Unknown, 07/22/19) Patient Home Medication List Home Medication List Reviewed: Yes Insulin Detemir (Levemir Flexpen) 100 Unit/Ml (3 Ml) Insuln.pen, 14 UNITS SC BID, (Reported) Entered as Reported by: LORETTA SALVADOR on 03/03/23 1106 Nirmatrelvir/Ritonavir (Paxlovid 300-100 mg Pack (Eua)) 300 Mg (150 Mg X 2)-100 Mg Tab.ds.pk, 1 EACH PO BID Prescribed by: BARBARA GUADARRAMA MD on 07/16/232105 Review of Systems Review of Systems Constitutional: see HPI Past Axjclyp-Efdyfp-Vugexw Hx Patient Social History Tobacco Use?: Yes Use of E-Cig and/or Vaping dev: No Substance use?: Yes Alcohol Use?: No Immunizations Up To Date Tetanus Booster (TDap): Unknown First/Initial COVID19 Vaccinat: UNKNOWN DATE Second COVID19 Vaccination [place]: UNKNOWN DATE Third COVID19 Vaccination Date: 09/2021 Seasonal Allergies Seasonal Allergies: No Past Medical History Surgery/Hospitalization HX: Insulin dependent DM, Bipolar, Cassie fundoplication; Hep C +; left rib fx; Marijuana induced cyclic vomiting Surgeries: Yes ( gastric bypass? R lower leg lesion removed, I&D of abscess, heart sx 16mo) Cardiac, Gallbladder Respiratory: Yes COPD Currently Using CPAP: No Currently Using BIPAP: No Cardiac: Yes (heart surgery at 16mo for hole in heart; MA ?, Systolic CHF, ?AFIB) Atrial Fibrillation, Cardiomyopathy, Heart Attack, Irregular Heartbeat Neurological: No Genitourinary: No Gastrointestinal: Yes (Gastritis, Duodenitis, frequent alcohol intake, Hep C treated) Hepatitis Musculoskeletal: Yes Fractures Endocrine: Yes (Refuses to monitor blood sugar ) Diabetes, Insulin dep, Diabetes, Non-Insulin dep HEENT: No Cancer: No Psychosocial: Yes (polysubstance abuse ) Anxiety Integumentary: Yes (Hidradenitis Suppurative, frequent abscesses, necrotizing fasciitis) Blood Disorders: Yes (Hep C+) Adverse Reaction/Blood Tranf: No Family Medical History No Pertinent Family Hx Physical Exam Vital Signs Vital Signs - First Documented 09/11/23 14:00 Temp 36.3 Pulse 89 Resp 18 B/P (MAP) 119/86 (97) Pulse Ox 100 O2 Delivery Room Air Capillary Refill : Height/Weight/BMI Height: '" Weight: 192lbs. 4.0oz. [id number]; 21.00 BMI Method: General Appearance: WD/WN, no apparent distress HEENT: pharynx normal Respiratory: chest non-tender, lungs clear, normal breath sounds, no respiratory distress, no accessory muscle use Cardiovascular: regular rate, rhythm, no murmur Gastrointestinal: normal bowel sounds, soft, tenderness (Mild tenderness in the epigastric region without any rebound or guarding. No mass organomegaly. No skin changes.) Extremities: normal range of motion, non-tender, normal capillary refill Neurologic/Psychiatric: alert, oriented x 3 Skin: normal color, warm/dry Procedures/Interventions Date of ETT Placement: Jul 23, 2019 Time of ETT Placement: 05 Progress/Results/Core Measures Results/Orders Lab Results Laboratory Tests Test 09/11/23 14:00 Range/Units White Blood Count 12.8 H 4.3-11.0 10^3/uL Red Blood Count 4.46 4.30-5.52 10^6/uL Hemoglobin 13.8 13.3-17.7 g/dL Hematocrit 41 40-54 % Mean Corpuscular Volume 91 80-99 fL Mean Corpuscular Hemoglobin 31 25-34 pg Mean Corpuscular Hemoglobin Concent 34 32-36 g/dL Red Cell Distribution Width 12.0 10.0-14.5 % Platelet Count 351 130-400 10^3/uL Mean Platelet Volume 9.9 9.0-12.2 fL Immature Granulocyte % (Auto) 0 % Neutrophils (%) (Auto) 72 42-75 % Lymphocytes (%) (Auto) 19 12-44 % Monocytes (%) (Auto) 8 0-12 % Eosinophils (%) (Auto) 1 0-10 % Basophils (%) (Auto) 0 0-10 % Neutrophils # (Auto) 9.2 H 1.8-7.8 10^3/uL Lymphocytes # (Auto) 2.5 1.0-4.0 10^3/uL Monocytes # (Auto) 1.0 0.0-1.0 10^3/uL Eosinophils # (Auto) 0.1 0.0-0.3 10^3/uL Basophils # (Auto) 0.1 0.0-0.1 10^3/uL Immature Granulocyte # (Auto) 0.0 0.0-0.1 10^3/uL Urine Color YELLOW Urine Clarity CLEAR Urine pH 5.5 5-9 Urine Specific [place] >=1.030 1.016-1.022 Urine Protein 3+ H NEGATIVE Urine Glucose (UA) TRACE H NEGATIVE Urine Ketones NEGATIVE NEGATIVE Urine Nitrite NEGATIVE NEGATIVE Urine Bilirubin 1+ H NEGATIVE Urine Urobilinogen 0.2 < = 1.0 MG/DL Urine Leukocyte Esterase NEGATIVE NEGATIVE Urine RBC (Auto) 2+ H NEGATIVE Urine RBC 10-25 H /HPF Urine WBC NONE /HPF Urine Squamous Epithelial Cells RARE /HPF Urine Crystals NONE /LPF Urine Bacteria NEGATIVE /HPF Urine Casts PRESENT /LPF Urine Hyaline Casts 5-10 H /LPF Urine Mucus LARGE H /LPF Urine Culture Indicated NO Sodium Level 137 135-145 MMOL/L Potassium Level 4.0 3.6-5.0 MMOL/L Chloride Level 102 98-107 MMOL/L Carbon Dioxide Level 23 21-32 MMOL/L Anion Gap 12 5-14 MMOL/L Blood Urea Nitrogen 16 7-18 MG/DL Creatinine 1.22 0.60-1.30 MG/DL Estimat Glomerular Filtration Rate 71 BUN/Creatinine Ratio 13 Glucose Level 176 H 70-105 MG/DL Calcium Level 9.6 8.5-10.1 MG/DL Corrected Calcium 9.9 8.5-10.1 MG/DL Total Bilirubin 0.3 0.1-1.0 MG/DL Aspartate Amino Transf (AST/SGOT) 20 5-34 U/L Alanine Aminotransferase (ALT/SGPT) 10 0-55 U/L Alkaline Phosphatase 83 40-136 U/L Total Protein 7.0 6.4-8.2 GM/DL Albumin 3.6 3.2-4.5 GM/DL Lipase 32 8-78 U/L My Orders Orders - SUKUMAR JEFFERS DO Cbc And Automated Diff (09/11/23 14:04) Comprehensive Metabolic Panel (09/11/23 14:04) Lipase (09/11/23 14:04) Ua Culture If Indicated (09/11/23 14:04) Ondansetron Injection (Ondansetron Inj (09/11/23 14:15) Medications Given in ED Current Medications Medications Dose Ordered Sig/Scarlett Route Start Time Stop Time Status Last Admin Dose Admin Ondansetron HCl 4 mg ONCE ONCE IM 09/11/23 14:15 09/11/23 14:16 DC 09/11/23 14:18 4 MG Vital Signs/I&O 09/11/23 14:00 Temp 36.3 Pulse 89 Resp 18 B/P (MAP) 119/86 (97) Pulse Ox 100 O2 Delivery Room Air Departure Communication (Admissions) Patient is hemodynamically stable with a nonsurgical abdominal exam. Pain is chronic in nature as is the vomiting. He is given Zofran. No recurrence of vo miting. Labs are reassuring and he has a nonsurgical abdominal exam. He has had multiple CT scans and no indication for imaging at this time. He recently had an upper endoscopy which was negative as well. Will be discharged in stable condition with supportive care. Impression Primary Impression: Chronic abdominal pain Additional Impression: Vomiting Qualified Codes: R11.10 - Vomiting, unspecified Disposition: 01 HOME, SELF-CARE Condition: Stable Departure-Patient Inst. Referrals: ZULMA HERRERA APRN (PCP) Primary Care Physician [facility] (Family) Primary Care Physician Patient Instructions: Nausea and Vomiting, Adult ED Add. Discharge Instructions: Use the nausea medicine as prescribed as needed. Use ibuprofen and Tylenol as needed for pain. Return to the emergency department for any severe concerns. Follow-up with your primary doctor for any nonemergent needs and for further treatment recommendations regarding your chronic pain. All discharge instructions reviewed with patient and/or family. Voiced understanding. Scripts Ondansetron (Ondansetron Odt) 8 Mg Tab.rapdis 8 MG SL Q6H PRN for NAUSEA/VOMITING for 3 Days, #12 TAB Prov: SUKUMAR JEFFERS DO 09/11/23 SUKUMAR JEFFERS DO Sep 11, 2023 14:05
[2023-09-11] MEDS ORDERED: ONDANSETRON INJECTION 4 MG/2 ML (SDV) IM ONE (14:15)
[2023-09-11 14:24] LABS: CLARITY,URINE CLEAR; COLOR,URINE YELLOW; GLUCOSE, URINE (UA) TRACE (NEGATIVE); KETONES,URINE NEGATIVE (NEGATIVE); LEUKOCYTE ESTERASE ,URINE NEGATIVE (NEGATIVE); NITRITE,URINE NEGATIVE (NEGATIVE); PH,URINE 5.5 (5-9); PROTEIN,URINE 3+ (NEGATIVE)
[2023-09-11 14:29] LABS: BASOPHILS # (AUTO) 0.1 10^3/uL (0.0-0.1); BASOPHILS % (AUTO) 0 % (0-10); EOSINOPHILS # (AUTO) 0.1 10^3/uL (0.0-0.3); EOSINOPHILS % (AUTO) 1 % (0-10); HEMATOCRIT 41 % (40-54); HEMOGLOBIN 13.8 g/dL (13.3-17.7); LYMPHOCYTES # (AUTO) 2.5 10^3/uL (1.0-4.0); LYMPHOCYTES % (AUTO) 19 % (12-44); MEAN CORPUSCULAR HEMOGLOBIN 31 pg (25-34); MEAN CORPUSCULAR HGB CONC 34 g/dL (32-36); MEAN CORPUSCULAR VOLUME 91 fL (80-99); MEAN PLATELET VOLUME 9.9 fL (9.0-12.2); MONOCYTES % (AUTO) 8 % (0-12); NEUTROPHILS # (AUTO) 9.2 10^3/uL (1.8-7.8); NEUTROPHILS % (AUTO) 72 % (42-75); PLATELET COUNT 351 10^3/uL (130-400); WHITE BLOOD COUNT 12.8 10^3/uL (4.3-11.0)
[2023-09-11 14:35] LABS: BACTERIA,URINE NEGATIVE /HPF; SQUAMOUS EPITHELIAL CELL,UR RARE /HPF
[2023-09-11 14:40] LABS: ALBUMIN 3.6 GM/DL (3.2-4.5); BILIRUBIN,TOTAL 0.3 MG/DL (0.1-1.0); CALCIUM 9.6 MG/DL (8.5-10.1); CREATININE SERUM 1.22 MG/DL (0.60-1.30)
[2023-09-11] MEDS ORDERED: ONDA8TAB13 SL (14:44)
[2023-09-12 01:54] LABS: BILIRUBIN,URINE 1+ (NEGATIVE)
== END 2023-09-11 15:06 | disposition home or self-care (01) ==
LOC: EDUNIT# 13:54 → ER FS 13:55
DX: R10.13 Epigastric pain (principal); G89.29 Other chronic pain; E11.9 Type 2 diabetes mellitus without complications; Z98.84 Bariatric surgery status; Z79.4 Long term (current) use of insulin
CPT/HCPCS: 36415; 80053; 81000; 83690; 85025; 96372

== ENCOUNTER 2023-10-02 14:12 | Outpatient (RCR) | payer MEDICAID ==
[~2023-10-02 14:12] MED LIST changes: +ONDA8TAB13 SL
== END 2023-10-05 | disposition home or self-care (01) ==
LOC: LAB 14:12
PROVIDERS: ATTEND Surgery
DX: R19.7 Diarrhea, unspecified (principal)